=== PATIENT | female | born 1955 | race Two or more races ===

== ENCOUNTER 2020-03-27 12:36 | Outpatient (REF) | payer OTHER, SELFPAY ==
--- NOTE | 2020-03-27 13:27 | XR_ITS ---
EXAMINATION: XR KNEE, BILATERAL XR KNEE, LEFT CLINICAL INFORMATION: Pain. COMPARISON: None TECHNIQUE: AP bilateral knees one view. Left knee 2 views. FINDINGS: LEFT KNEE: Mild medial compartment joint space narrowing. No fracture or dislocation. No effusion. Vascular calcification. RIGHT KNEE: Mild medial compartment joint space narrowing. Chondrocalcinosis in the medial and lateral compartment. 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
== END 2020-03-27 12:37 | disposition home or self-care (01) ==
LOC: HO.XRAY 12:36
PROVIDERS: PCP Internal Medicine; Visit Provider Orthopaedic Surgery
DX: M25.562 Pain in left knee (principal); M25.561 Pain in right knee; M22.2X2 Patellofemoral disorders, left knee; M22.2X1 Patellofemoral disorders, right knee
CPT/HCPCS: 73560; 73565; 99204

== ENCOUNTER → 2020-03-28 13:05 | Outpatient (BNVA) | payer OTHER, SELFPAY | PROVIDERS: PCP Internal Medicine; Referring Provider Internal Medicine; Visit Provider Internal Medicine | DX: E05.20 Thyrotoxicosis with toxic multinodular goiter without thyrotoxic crisis or storm (principal); E83.52 Hypercalcemia; E11.65 Type 2 diabetes mellitus with hyperglycemia; Z79.84 Long term (current) use of oral hypoglycemic drugs; I10 Essential (primary) hypertension; E78.5 Hyperlipidemia, unspecified; E89.0 Postprocedural hypothyroidism; E55.9 Vitamin D deficiency, unspecified; G70.00 Myasthenia gravis without (acute) exacerbation | CPT/HCPCS: 99214 ==

== ENCOUNTER 2020-04-10 12:35 | Outpatient (REF) | payer OTHER, SELFPAY ==
--- NOTE | 2020-04-10 12:38 | CT_ITS ---
EXAMINATION: CT CHEST SCREENING CLINICAL INFORMATION: Smoking history COMPARISON: Previous chest CT March 2019 TECHNIQUE: Multidetector volumetric CT imaging of the chest is performed without contrast using low dose technique. Additional 2D coronal and sagittal reformatted images and axial 3D maximum intensity projection (MIP) images are generated on the CT workstation. This CT examination was performed using dose optimization techniques as appropriate, variously including the following: *Automated exposure control *Adjustment of mA and/or kV according to patient size (this includes techniques or standardized protocols for targeted exams where dose is matched to indication/reason for exam; i.e. extremities or head) *Use of iterative reconstruction technique DLP: 45 mGy-cm FINDINGS: LUNGS: The small pulmonary nodules are stable. Largest pulmonary nodules are calcified pulmonary nodules central right upper lobe axial image 20 series 3. No new pulmonary nodule is seen. No endobronchial or endotracheal lesion is seen. MEDIASTINUM: The visualized thyroid gland is unremarkable. There is mild to moderate coronary artery calcification. The heart does not appear enlarged. There is no pericardial effusion. The thoracic aorta is normal in caliber. There are no enlarged hilar or mediastinal lymph nodes. PLEURA: There is no pleural effusion. No pleural mass or thickening. AXILLA: No lymphadenopathy. UPPER ABDOMEN: The gallbladder has been removed. OSSEOUS STRUCTURES: There are degenerative changes of the spine. CT/CT lung screening IMPRESSION: Stable small calcified and noncalcified pulmonary nodules. Mild to moderate coronary artery calcification. ASSESSMENT: Lung-RADS category 2: Benign RECOMMENDATION: Annual low-dose chest CT follow-up recommended.
== END 2020-04-10 12:36 | disposition home or self-care (01) ==
LOC: HO.CT 12:35
PROVIDERS: PCP Internal Medicine; Visit Provider Physician Assistant Medical
DX: Z12.2 Encounter for screening for malignant neoplasm of respiratory organs (principal); F17.210 Nicotine dependence, cigarettes, uncomplicated
CPT/HCPCS: 71250

== ENCOUNTER 2020-04-20 12:53 | Outpatient (REF) | payer OTHER, SELFPAY ==
[2020-04-20 18:35] LABS: Basophils Percent Auto 0.6 % (0-2); Eosinophils Absolute Auto 0.1 X10*3/uL (0.0-0.4); Eosinophils Percent Auto 2.1 % (0-4); Hematocrit 45.6 % (37-47); Imm Gran Abs Auto 0.02 X10*3/uL (0.00-0.03); Imm Gran Pct Auto 0.3 % (0.0-0.4); Lymphocytes Absolute Auto 2.1 X10*3/uL (1.2-4.9); Lymphocytes Percent Auto 31.8 % (20-40); MANUAL DIFF FLAG NO; Mean Corpuscular HGB Conc 32.9 g/dl (31.0-35.0); Mean Corpuscular Hemoglobin 29.3 pg (27.0-33.0); Mean Corpuscular Volume 89.1 fL (80-98); Mean Platelet Volume 11.5 fL (9.4-12.3); Monocytes Absolute Auto 0.5 X10*3/uL (0.1-1.2); Monocytes Percent Auto 7.2 % (2-11); Neutrophils Absolute Auto 3.8 X10*3/uL (2.0-8.3); Platelet Count 302 X10*3/uL (160-400); Red Blood Count 5.12 X10*6/uL (4.20-5.50); Red Cell Distribution Width 14.3 % (11.0-16.0); White Blood Count 6.6 X10*3/uL (4.8-10.8)
[2020-04-20 18:57] LABS: Glucose Urine UA NEG (NEG); Leukocyte Esterase Urine NEG (NEG); Nitrite Urine NEG (NEG); PH 6.5 (5.0-8.0); Urine Blood NEG (NEG); Urine Ketones NEG (NEG); Urine Protein NEG (NEG-TRACE)
[2020-04-20 19:02] LABS: Appearance Urine CLEAR; Color Urine YELLOW
[2020-04-20 19:06] LABS: Albumin Level 4.4 g/dL (3.5-5.0); Anion Gap 13 (12-20); Blood Urea Nitrogen 11 mg/dL (9-16); Calcium 8.6 mg/dL (8.4-10.2); Carbon Dioxide 25 mmol/L (22-29); Chloride 107 mmol/L (96-108); Estimated Glomerular Filt Rate > 60; Phosphorus 2.6 mg/dL (2.7-4.5); Potassium 4.1 mmol/l (3.3-5.1); Renal w Reflex-LAB USE ONLY Order Verified; Sodium 141 mmol/L (135-145); Uric Acid 5.4 mg/dL (2.4-5.7)
[2020-04-20 19:07] LABS: Creatinine Urine 58.75 mg/dL; Microalbum/Creatinine Ratio Ur 64.6 ug/mg cr
[2020-04-20 19:07] LABS: Anion Gap 13 (12-20); Blood Urea Nitrogen 11 mg/dL (9-16); Calcium 8.6 mg/dL (8.4-10.2); Carbon Dioxide 24 mmol/L (22-29); Chloride 108 mmol/L (96-108); Estimated Glomerular Filt Rate > 60; Glucose Random 113 mg/dL (60-115); Potassium 4.1 mmol/l (3.3-5.1); Sodium 141 mmol/L (135-145)
[2020-04-20 19:15] LABS: Alanine Aminotransferase 21 U/L (0-31); Albumin Level 4.4 g/dL (3.5-5.0); Alkaline Phosphatase 88 U/L (39-117); Anion Gap 12 (12-20); Aspartate Amino Transferase 20 U/L (5-31); Bilirubin Total < 0.2 mg/dL (0.0-1.0); Blood Urea Nitrogen 11 mg/dL (9-16); Calcium 8.6 mg/dL (8.4-10.2); Carbon Dioxide 25 mmol/L (22-29); Chloride 108 mmol/L (96-108); Cholesterol 167 mg/dL; Estimated Glomerular Filt Rate > 60; Glucose Random 115 mg/dL (60-115); HDL Cholesterol 46 mg/dL; LDL Cholesterol Calculated 105 mg/dl; Potassium 4.1 mmol/l (3.3-5.1); Sodium 141 mmol/L (135-145); Total Protein 7.1 g/dL (6.5-8.0); Triglycerides 83 mg/dL
[2020-04-20 19:17] LABS: RBC Urine 0 /HPF (0); Squamous Epithelial Cell Urine TRACE /LPF; WBC Urine 0-2 /HPF (0-4)
[2020-04-20 19:24] LABS: Creatinine Urine 59.62 mg/dL; Microalbum/Creatinine Ratio Ur 65.4 ug/mg cr
[2020-04-20 19:25] LABS: Creatinine Urine 59.31 mg/dL; Total Protein Urine Random 12 mg/dL (<12)
[2020-04-20 19:27] LABS: Free T4 (Free Thyroxine) 0.69 ng/dL (0.71-1.85); Vitamin D 25-OH Total 30.1 ng/mL (>30)
[2020-04-20 19:28] LABS: Vitamin D 25-OH Total 29.3 ng/mL (>30)
[2020-04-20 19:28] LABS: Vitamin B12 290 pg/mL (200-900)
[2020-04-20 19:36] LABS: Renal w Reflex Lab Use Only Order verified
[2020-04-20 19:41] LABS: Creatinine, mg/dL 50.66; Phosphorus mg/dL 21.6 mg/dL; Protein mg/dL 10 mg/dL
[2020-04-20 20:32] LABS: Creatinine, 24Hr Urine 0.9 G/Day (1.0-2.0); Phosphorus, 24 Hr Urine 0.4 G/Day (0.4-1.3); Protein 24 Hr Urine 173 mg/Day (<150); Sodium 24 Hr Urine 79.4 mmol/Day (40-220); Total Volume 24 Hour Urine 1725 mL
[2020-04-20 20:36] LABS: Total Volume 24 Hour Urine 1725 mL
[2020-04-21 08:35] LABS: Estimated Average Glucose 174 mg/dL; Hemoglobin A1c % 7.7 %
[2020-04-22 11:21] LABS: LDL Cholesterol Direct 112 mg/dL (<100)
[2020-04-22 19:27] LABS: Calcium, 24 Hr Urine 185 mg/24 h; Calcium/Creatinine Ratio 214 mg/g creat (30-275); Creatinine, 24U 0.86 g/24 h (0.50-2.15); Urea, 24 Hr Urine 7 g/24 h (6-17)
[2020-04-23 20:26] LABS: Calcium (PTHI) 9.4 mg/dL (8.6-10.4); PTHI 73 pg/mL (14-64)
[2020-04-24 13:07] LABS: IgA 115 mg/dL (70-320); IgG 1183 mg/dL (600-1540); IgM 88 mg/dL (50-300)
[2020-04-26 05:01] LABS: 24hr Urine Total Volume 1725 mL; Citric Acid, 24hr Urine 442 mg/24 h (100-1300); Citric Acid/Creat Ratio 24U 508 mg/g creat (180-1070)
[2020-04-27 07:46] LABS: Oxalic Acid 24 Urine 34.5 mg/24 h (3.6-38.0)
[2020-04-27 09:05] LABS: Total Volume 1725
[2020-04-27 09:07] LABS: Magnesium, 24H Urine 38
[2020-04-27 09:08] LABS: Magnesium, Urine 24H/g Creat 44
[2020-04-27 09:25] LABS: Creatinine, 24H Ur 0.88
[2020-04-27 21:22] LABS: FT4 by Equilib. Dialysis 0.6 ng/dL (0.9-2.2)
[2020-05-05 12:45] LABS: Creatinine 24Hr Urine SEE ABOVE
== END 2020-04-20 12:54 | disposition home or self-care (01) ==
LOC: HO.HMGCLDS 12:53
PROVIDERS: Absent Provider Internal Medicine Nephrology; PCP Internal Medicine; Visit Provider Internal Medicine
DX: R80.9 Proteinuria, unspecified (principal); I10 Essential (primary) hypertension; E11.9 Type 2 diabetes mellitus without complications; E83.52 Hypercalcemia; E55.9 Vitamin D deficiency, unspecified; E11.65 Type 2 diabetes mellitus with hyperglycemia; E78.5 Hyperlipidemia, unspecified; E89.0 Postprocedural hypothyroidism
CPT/HCPCS: 36415; 80048; 80051; 80053; 80061; 81001; 82040; 82043; 82306; 82310; 82340; 82507; 82565; 82607; 82784; 83036; 83721; 83735; 83945; 83970; 84100; 84105; 84156; 84300; 84439; 84443; 84520; 84540; 84550; 84560; 85025; 86334

== ENCOUNTER 2020-04-30 13:21 | Outpatient (REF) | payer OTHER, SELFPAY ==
--- NOTE | 2020-04-30 13:25 | US_ITS ---
EXAMINATION: US RETROPERITONEAL LIMITED (RENAL ONLY) CLINICAL INFORMATION: Renal calculi. COMPARISON: Limited abdominal ultrasound dated 08/12/2018 TECHNIQUE: Real-time imaging of the kidneys. FINDINGS: RIGHT KIDNEY: 11.1 x 5.3 x 4.7 cm (SAG x AP x TRV). The kidney is normal in size, contour, and echogenicity. Renal cortical thickness is normal. There are 2 stones in the lower pole measuring 4 mm. There is a 9 mm echogenic lesion in the lower pole suggestive of an angiomyolipoma. No hydronephrosis. LEFT KIDNEY: 11.5 x 5.6 x 5.1 cm (SAG x AP x TRV). The kidney is normal in size, contour, and echogenicity. Renal cortical thickness is normal. There is a 1.8 x 1.6 x 1.7 cm simple cyst in the upper pole. No renal calculi or hydronephrosis. US/US renal BI IMPRESSION: Small right renal stones. 9 mm echogenic lesion in the lower pole of the left kidney. This may represent an angiomyolipoma. Comparison with old outside exams if available or confirmation with CT or MRI should be considered. Small left renal cyst.
== END 2020-04-30 13:22 | disposition home or self-care (01) ==
LOC: HO.US 13:21
PROVIDERS: PCP Internal Medicine; Visit Provider Internal Medicine
DX: N20.0 Calculus of kidney (principal)
CPT/HCPCS: 76775

== ENCOUNTER → 2020-05-02 11:16 | Outpatient (BNVA) | payer OTHER, SELFPAY | PROVIDERS: PCP Internal Medicine; Referring Provider Internal Medicine; Visit Provider Internal Medicine | DX: Z76.89 Persons encountering health services in other specified circumstances (principal) ==

== ENCOUNTER → 2020-05-14 14:12 | Outpatient (BNVA) | payer OTHER, SELFPAY | PROVIDERS: PCP Internal Medicine; Referring Provider Internal Medicine; Visit Provider Internal Medicine Cardiovascular Disease | DX: G70.00 Myasthenia gravis without (acute) exacerbation (principal); R42 Dizziness and giddiness; R00.2 Palpitations; R06.00 Dyspnea, unspecified | CPT/HCPCS: 93005; 99202 ==

== ENCOUNTER 2020-05-25 11:00 | Outpatient (RCR) | payer OTHER, SELFPAY ==
--- NOTE | 2020-04-11 15:08 | MHC.PT.EP ---
[facility] [place] Office [place] Office [place] Office [address] [phone] F: [phone] F: [phone] F: [phone] F: [phone] Physical Therapy Plan of Care Date of Evaluation: 04/11/20 Date of Surgery: n/a Diagnosis: Patellofemoral Disorder of L knee Assessment: Patient is a 65 year old R handed female who presents with s/s consistent with L knee pain, PF syndrome. She is not currently working. She does stay active walking in the community and running errands as needed. She relies on walking and has not been able to do as much recently due to pain and fatigue. Patient past medical history includes stroke, kidney stones, myasthenia gravis. Current impairments include pain, ROM, strength, safety, independence, activity tolerance and functional mobility. Functional limitations include decreased ability to walk, stand, transfer, negotiate stairs, and perform weight bearing activities.. Patient is motivated with good rehab potential. Skilled PT will address impairments and functional limitations in order to achieve goals. 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 Manual therapy to restore motion and function. Therapeutic exercise to improve strength and flexibility. Neuromuscular re-education for posture and balance. Therapeutic activities to return to functional activities of daily living. Please sign and return to therapist. Thank you for your referral.
--- NOTE | 2020-06-28 09:36 | MHC.PT.DC ---
[facility] [place] Office [place] Office [place] Office [address] 140 [facility] [phone] F: [phone] F: [phone] F: [phone] F: [phone] Physical Therapy Discharge Report Diagnosis: Patellofemoral Disorder of L knee Date of Surgery: n/a Date of Evaluation: 04/11/20 Date of Discharge: 06/19/20 Treatments to Date: 11 Cancellations to Date: No Shows to Date: Discharge Status: Independent with HEP Discharge Summary: Pt progressed well over the course of skilled PT making progress on impairments and functional limitations resulting in an improved quality of life. Pt is I with HEP and appropriate to d/c to HEP at this time. Electronically signed by: Juan Diego Melgoza, PT Please sign and return to therapist. Thank you for your referral.
== END 2020-06-28 09:36 | disposition home or self-care (01) ==
LOC: HO.PTCHIC 11:00
PROVIDERS: PCP Internal Medicine; Visit Provider Orthopaedic Surgery
DX: M22.2X2 Patellofemoral disorders, left knee (principal)
CPT/HCPCS: 97110; 97140; 97162

== ENCOUNTER → 2020-06-05 13:57 | Outpatient (REF) | payer OTHER, SELFPAY ==
--- NOTE | 2020-06-05 13:59 | CT_ITS ---
EXAMINATION: CT SOFT TISSUE NECK WITHOUT CONTRAST CLINICAL INFORMATION: Nontoxic multinodular goiter COMPARISON: Ultrasound thyroid 2220 TECHNIQUE: Helical imaging was performed in the axial plane with generation of coronal and sagittal reformatted images. This CT examination was performed using dose optimization techniques as appropriate, variously including the following: *Automated exposure control *Adjustment of mA and/or kV according to patient size (this includes techniques or standardized protocols for targeted exams where dose is matched to indication/reason for exam; i.e. extremities or head) *Use of iterative reconstruction technique DLP: 372 mGy-cm FINDINGS: No cervical adenopathy is identified. The parotid glands are homogeneous in attenuation. The submandibular glands are normal. No contour abnormality or pathologic enhancement is seen within the oral cavity or pharyngeal mucosal space. The laryngeal structures are normal. The parapharyngeal fat is preserved. The carotid sheath vasculature opacify normally. No extra mucosal soft tissue mass or fluid collection is seen. No retropharyngeal fluid collection is seen. The thyroid gland is normal. The superior mediastinum is unremarkable. The lung apices are clear. There is a small polyp or retention cyst floor of left maxillary sinus. Rest of the paranasal sinuses are well expanded and clear. There is small cysts seen in both lung apices. The temporomandibular joints are normal. No periapical disease is identified. No osseous abnormalities are seen. The imaged portions of the brain parenchyma are unremarkable. CT/CT soft tissue neck wo con IMPRESSION: Small polyp or retention cyst left maxillary sinus. Otherwise CT neck without contrast is unremarkable.
--- NOTE | 2020-06-05 13:59 | US_ITS ---
EXAMINATION: US THYROID CLINICAL INFORMATION: Nontoxic multinodular goiter. COMPARISON: CT soft tissue neck without contrast dated 06/05/2020. Ultrasound soft tissue head/neck thyroid dated 01/30/2020 and 03/15/2018. TECHNIQUE: Linear transducer graff-scale and color Doppler examination with attention to the region of the thyroid. FINDINGS: SIZE: Measurements of the thyroid lobes and nodules are given in sagittal, anteroposterior and transverse dimensions respectively. Right Thyroid Lobe: 4.1 x 1.4 x 1.4 cm, volume 5.2 mL. Previously 3.7 x 1.5 x 1.5 cm, volume 4.4 mL. Parenchyma: The gland echotexture is heterogeneous. Thyroid vascularity is normal. Left Thyroid Lobe: 3.9 x 1.5 x 1.1 cm, volume 3.4 mL. Previously 4.8 x 1.5 x 1.5 cm, volume 5.7 mL. Parenchyma: The gland echotexture is heterogeneous. Thyroid vascularity is normal. Isthmus: 0.2 cm in maximum AP dimension. Previously 0.4 cm. RIGHT THYROID LOBE: There are 2 nodules seen. 1. Location: Inferior. Size: 1.8 x 1.0 x 1.0 cm. Previous: 1.3 x 0.9 x 1.0 cm. Nodule characteristics: Hyperechoic, smoothly marginated with intranodular flow. 2. Location: Superior/middle. Size: 0.3 x 0.3 x 0.4 cm. Previous: 0.7 x 0.4 x 0.5 cm. Nodule characteristics: Hyperechoic, smoothly marginated, macrocalcification with no intranodular flow. ISTHMUS: No nodules. LEFT THYROID LOBE: There are 3 nodules seen. 1. Location: Superior. Size: 0.4 x 0.4 x 0.3 cm. Nodule characteristics: Hyperechoic, smoothly marginated with no intranodular flow. 2. Location: Middle. Size: 0.4 x 0.2 x 0.5 cm. Previous: 0.5 x 0.1 x 0.2 cm. Nodule characteristics: Hyperechoic macrocalcification and no intranodular flow. 3. Location: Superior. Size: 0.5 x 0.3 x 0.3 cm. Nodule characteristics: Hyperechoic smoothly marginated with macrocalcifications and no intranodular flow. NODES: No lymphadenopathy is seen in the tissue surrounding the thyroid gland. US/US thyroid IMPRESSION: Multiple bilateral thyroid nodules. The largest nodule is same size as the previous ultrasound exam 03/15/2018 but slightly increased since 01/30/2020. The rest of the nodules are subcentimeter and nonsuspicious.
== END ==
LOC: HO.CARD 13:57
PROVIDERS: Visit Provider Internal Medicine Cardiovascular Disease
DX: E04.2 Nontoxic multinodular goiter (principal); R00.2 Palpitations
CPT/HCPCS: 70490; 76536

== ENCOUNTER → 2020-06-11 10:49 | Outpatient (BNVA) | payer OTHER, SELFPAY | PROVIDERS: PCP Internal Medicine; Visit Provider Nurse Practitioner | DX: Z76.89 Persons encountering health services in other specified circumstances (principal) ==

== ENCOUNTER 2020-06-27 13:25 | Outpatient (REF) | payer OTHER, SELFPAY ==
[2020-06-27 14:52] LABS: Creatinine Urine 52.19 mg/dL
[2020-06-27 15:13] LABS: Free T4 (Free Thyroxine) 1.04 ng/dL (0.71-1.85); Thyroid Stimulating Hormone 12.76 uIU/mL (0.32-4.0)
== END 2020-06-27 13:26 | disposition home or self-care (01) ==
LOC: HO.LAB 13:25
PROVIDERS: PCP Internal Medicine; Visit Provider Internal Medicine
DX: E11.65 Type 2 diabetes mellitus with hyperglycemia (principal); E89.0 Postprocedural hypothyroidism
CPT/HCPCS: 36415; 84439; 84443

== ENCOUNTER → 2020-07-05 12:52 | Outpatient (BNVA) | payer OTHER, SELFPAY | PROVIDERS: PCP Internal Medicine; Visit Provider Internal Medicine | DX: E04.2 Nontoxic multinodular goiter (principal); E89.0 Postprocedural hypothyroidism; E11.65 Type 2 diabetes mellitus with hyperglycemia; E55.9 Vitamin D deficiency, unspecified; E83.52 Hypercalcemia; E78.5 Hyperlipidemia, unspecified; I10 Essential (primary) hypertension | CPT/HCPCS: 82947; 99212 ==

== ENCOUNTER → 2020-07-23 08:34 | Outpatient (BNVA) | payer OTHER, SELFPAY | PROVIDERS: PCP Internal Medicine; Visit Provider Nurse Practitioner ==

== ENCOUNTER → 2020-08-20 13:14 | Outpatient (BNVA) | payer OTHER, SELFPAY | PROVIDERS: PCP Internal Medicine; Visit Provider Nurse Practitioner | DX: Z13.89 Encounter for screening for other disorder (principal) | CPT/HCPCS: 99212 ==

== ENCOUNTER → 2020-09-06 10:20 | Outpatient (REF) | payer OTHER, SELFPAY ==
--- NOTE | 2020-09-06 10:26 | CA_ITS ---
Transthoracic Echocardiogram Patient (Last, First, Middle): Magy Fitzgerald, Gender: Female Date of : 1955 Age: 65 Procedure Date: 09/06/2020 Procedure Type: Transthoracic Echocardiogram Location: OP Height: 160.02 cm Weight: 71.67 kg BSA: 1.75 m2 Heart Rate: bpm BP: 136 / 90 mmHg Commis Chef: TAMIKA Javed MD: Duke Izaguirre MD Symptoms: R00.2 - Palpitations Study Quality: Good ECG Rhythm: Sinus Conclusions: - The left ventricular systolic function is normal. The visually estimated ejection fraction is between 55-60%. - No obvious valvular pathology seen on this study. Findings Left Ventricle Normal left ventricular cavity size. There is mildly increased left ventricular wall thickness. The left ventricular systolic function is normal. The visually estimated ejection fraction is between 55-60%. There is no evidence of regional wall motion abnormalities. Diastolic function is normal for age. Right Ventricle Normal right ventricular cavity size and systolic function. Atria Both atria are normal in size. Aortic Valve There is a normal trileaflet aortic valve. There is no aortic valve stenosis. There is no aortic valve regurgitation. Mitral Valve The mitral valve appears normal. There is trace mitral valve regurgitation. There is no mitral valve stenosis. Pulmonic Valve The pulmonic valve was not well visualized. Tricuspid Valve Normal tricuspid valve structure. There is trace tricuspid valve regurgitation. The pulmonary artery systolic pressure is normal. Great Vessels The aortic annulus, sinuses of valsalva, and asc aorta are normal in size. Venous The inferior vena cava is normal in size and collapses greater than 50% with inspiration. Pericardium/Pleural There is no evidence of pericardial effusion. Prior Study Comparison No prior study available for comparison. Recommendations, Care & Conclusions No obvious valvular pathology seen on this study. Measurements 2D Linear Measurements IVSd: 1.20 0.6-0.9/0.6-1.0 cm LVIDd: 3.68 3.9-5.3/4.2-5.9 cm LVIDd Index: 2.10 2.4-3.2/2.2-3.1 cm/m2 LVIDs: 2.73 2.0-3.6 cm LVPWd: 1.05 0.7-1.1 cm Ao Root: 3.30 2.1-3.5 cm LA Diam: 3.20 2.7-3.8/3.0-4.0 cm LAIDs Index: 1.83 1.5-2.3 cm/m2 LV Mass: 165.04 67-162/88-224 g LV Mass Index: 94.31 43-95/49-115 g/m2 LVOT Diam: 2.00 3.0+(-)1.3 cm 2D Systolic Function EF 4C: 52.00 >55% EF 2C: 58.50 >55% EF BiP: 54.20 >55% Mitral Valve MV Pk E: 0.78 MV PK A: 0.75 MV Decel Time: 201.00 E/A: 1.00 E'Lateral: 6.96 E'Medial: 5.44 E/E' Med: 14.40 E/E' Lat: 11.30 PHT: 59.00 MVA PHT: 3.73 Decel Lander: 3.90 Aortic Valve AoV Pk Tyler: 1.29 AoV Mn Tyler: 0.87 AoV VTI: 0.29 AoV Pk Grad: 7.00 Aov Mn Grad: 3.00 ODILON Cont.VTI: 2.37 LVOT LVOT Pk Tyler: 0.96 LVOT Mn Tyler: 0.62 LVOT VTI: 0.22 LVOT Pk Grad: 4.00 LVOT Mn Grad: 2.00 LVOT Diam: 2.00 LVOT Area: 3.14 Diastolic Function MV Pk E: 0.78 MV Pk A: 0.75 E/A: 1.00 E'Medial: 5.44 E/E' Med: 14.40 E' Laterial: 6.96 E/E' Lat: 11.30 Tricuspid Valve TR Pk Tyler: 2.21 TR Pk Grad: 20.00 RA Press: 3.00 RVSP: 23.00 Great Vessels Aorta Ao Root-2D: 3.30 2.0-3.7 cm Ao Asc: 3.40 2.1-3.4 cm Ao Arch: 2.40 Updated in Other Vendor System with Status of Final Benjie Mehta MD electronically signed on 09/08/2020 12:37:58 PM with status of Final
[2020-09-06 12:42] LABS: Alanine Aminotransferase 20 U/L (0-31); Albumin Level 4.3 g/dL (3.5-5.0); Alkaline Phosphatase 62 U/L (39-117); Anion Gap 13 (12-20); Aspartate Amino Transferase 20 U/L (5-31); Bilirubin Total 0.3 mg/dL (0.0-1.0); Blood Urea Nitrogen 20 mg/dL (9-16); Calcium 9.5 mg/dL (8.4-10.2); Carbon Dioxide 28 mmol/L (22-29); Chloride 103 mmol/L (96-108); Cholesterol 178 mg/dL; Estimated Glomerular Filt Rate > 60; Glucose Random 131 mg/dL (60-115); HDL Cholesterol 47 mg/dL; LDL Cholesterol Calculated 95 mg/dl; Potassium 4.1 mmol/L (3.3-5.1); Sodium 140 mmol/L (135-145); Triglycerides 183 mg/dL
[2020-09-06 13:04] LABS: Free T4 (Free Thyroxine) 0.97 ng/dL (0.71-1.85); Thyroid Stimulating Hormone 6.27 uIU/mL (0.32-4.0); Vitamin D 25-OH Total 25.4 ng/mL (>30)
[2020-09-06 13:06] LABS: Estimated Average Glucose 180 mg/dL; Hemoglobin A1c % 7.9 %
[2020-09-06 13:49] LABS: Creatinine Urine 97.98 mg/dL; Microalbum/Creatinine Ratio Ur 182.6 ug/mg cr
[2020-09-07 06:07] LABS: LDL Cholesterol Direct 118 mg/dL (<100)
== END ==
LOC: HO.CARD 10:20
PROVIDERS: Absent Provider Internal Medicine; PCP Internal Medicine; Visit Provider Internal Medicine Cardiovascular Disease
DX: R00.2 Palpitations (principal); E11.65 Type 2 diabetes mellitus with hyperglycemia; E04.2 Nontoxic multinodular goiter; E89.0 Postprocedural hypothyroidism; E55.9 Vitamin D deficiency, unspecified
CPT/HCPCS: 36415; 80053; 80061; 82043; 82306; 83036; 83721; 84439; 84443; 93306

== ENCOUNTER → 2020-09-14 09:33 | Outpatient (REF) | payer OTHER, SELFPAY ==
--- NOTE | ~2020-09-14 | US_ITS ---
EXAMINATION: US VENOUS ULTRASOUND WITH DOPPLER LOWER EXTREMITY, LEFT CLINICAL INFORMATION: Pain left lower leg COMPARISON: None TECHNIQUE: Ultrasound of the deep veins is performed from the hip to the calf with compression sonography and color and pulse Doppler assessment. Spectral analysis with color-flow imaging is performed. FINDINGS: There is normal venous compression and respiratory variation and augmented flow. The visualized common femoral vein, superficial femoral vein, profunda femoral vein, popliteal vein, and the trifurcation region shows no evidence of deep venous thrombosis. There is no significant popliteal fossa cyst. There is a trace joint effusion noted If the patient's symptoms persist, followup ultrasound in 5 days 7 days might be of value to exclude proximal propagation from a non-visualized calf vein. US/US venous duplex LE LT IMPRESSION: No DVT demonstrated in the left lower extremity. Trace joint effusion.
[2020-09-14 11:19] LABS: MANUAL DIFF FLAG NO
[2020-09-14 11:36] LABS: Basophils Absolute Auto 0.1 X10*3/uL (0.0-0.2); Basophils Percent Auto 0.6 % (0-2); Eosinophils Absolute Auto 0.2 X10*3/uL (0.0-0.4); Eosinophils Percent Auto 1.8 % (0-4); Hematocrit 46.2 % (37-47); Hemoglobin 15.4 g/dl (12.0-16.0); Imm Gran Abs Auto 0.03 X10*3/uL (0.00-0.03); Imm Gran Pct Auto 0.3 % (0.0-0.4); Lymphocytes Absolute Auto 2.7 X10*3/uL (1.2-4.9); Lymphocytes Percent Auto 30.4 % (20-40); Mean Corpuscular HGB Conc 33.3 g/dl (31.0-35.0); Mean Corpuscular Hemoglobin 29.2 pg (27.0-33.0); Mean Corpuscular Volume 87.7 fL (80-98); Mean Platelet Volume 11.6 fL (9.4-12.3); Monocytes Absolute Auto 0.7 X10*3/uL (0.1-1.2); Monocytes Percent Auto 8.3 % (2-11); Neutrophils Absolute Auto 5.2 X10*3/uL (2.0-8.3); Neutrophils Percent Auto 58.6 % (45-73); Platelet Count 298 X10*3/uL (160-400); Red Blood Count 5.27 X10*6/uL (4.20-5.50); Red Cell Distribution Width 14.3 % (11.0-16.0); White Blood Count 8.9 X10*3/uL (4.8-10.8)
[2020-09-14 11:45] LABS: Glucose Urine UA NEG (NEG); Leukocyte Esterase Urine TRACE (NEG); Nitrite Urine NEG (NEG); UACC Culture Trigger YES; Urine Blood NEG (NEG); Urine Ketones NEG (NEG); Urine Protein NEG (NEG-TRACE)
[2020-09-14 11:48] LABS: Appearance Urine CLEAR; Color Urine YELLOW
[2020-09-14 11:57] LABS: Anion Gap 13 (12-20); Blood Urea Nitrogen 16 mg/dL (9-16); Calcium 9.8 mg/dL (8.4-10.2); Carbon Dioxide 26 mmol/L (22-29); Chloride 104 mmol/L (96-108); Estimated Glomerular Filt Rate > 60; Phosphorus 3.1 mg/dL (2.7-4.5); Potassium 4.3 mmol/L (3.3-5.1); Sodium 139 mmol/L (135-145); Uric Acid 5.1 mg/dL (2.4-5.7)
[2020-09-14 12:09] LABS: Thyroid Stimulating Hormone 4.96 uIU/mL (0.32-4.0)
[2020-09-14 12:20] LABS: RBC Urine 0-2 /HPF (0); Squamous Epithelial Cell Urine 2+ /LPF
[2020-09-14 12:21] LABS: Bacteria Urine 1+ /LPF
[2020-09-14 12:23] LABS: Creatinine Urine 37.79 mg/dL; Microalbum/Creatinine Ratio Ur 222.2 ug/mg cr; Protein/Creatinine Ratio, Ur 0.42 (<0.2); Total Protein Urine Random 16 mg/dL (<12)
[2020-09-14 13:12] LABS: Renal w Reflex Lab Use Only Order verified
[2020-09-14 13:16] LABS: T4 Thyroxine 10.5 ug/dL (4.5-12.0)
== END ==
LOC: HO.CARD 09:33
PROVIDERS: Absent Provider Internal Medicine Nephrology; PCP Internal Medicine; Referring Provider Psychiatry & Neurology Neurology; Visit Provider Internal Medicine Cardiovascular Disease
DX: R00.2 Palpitations (principal); I63.9 Cerebral infarction, unspecified; M79.662 Pain in left lower leg; R80.9 Proteinuria, unspecified; E11.9 Type 2 diabetes mellitus without complications; I10 Essential (primary) hypertension; G47.00 Insomnia, unspecified; E03.9 Hypothyroidism, unspecified; M22.2X2 Patellofemoral disorders, left knee
CPT/HCPCS: 36415; 80051; 81001; 81003; 82043; 82310; 82565; 84100; 84156; 84436; 84443; 84520; 84550; 85025; 87086; 93971; 99212

== ENCOUNTER → 2020-10-02 13:13 | Outpatient (BNVA) | payer OTHER, SELFPAY | PROVIDERS: PCP Internal Medicine; Visit Provider Nurse Practitioner ==

== ENCOUNTER → 2020-10-29 10:36 | Outpatient (BNVA) | payer OTHER, SELFPAY | PROVIDERS: PCP Internal Medicine; Visit Provider Internal Medicine ==

== ENCOUNTER → 2020-11-01 13:58 | Outpatient (REF) | payer OTHER, SELFPAY ==
--- NOTE | 2020-11-01 14:05 | HM_ITS ---
The patient is 65-year-old female. INDICATION FOR TEST: Palpitation. INTERPRETATION: The patient is hooked up to cardiac event monitor from 11/01/2020 to 12/01/2020 for a total period of 30 days. The patient's baseline rhythm is normal sinus rhythm. Heart rate varying from 77 to 99 beats per minute. There were no arrhythmias recorded. The patient reported 1 symptoms of chest pain, which correlated to sinus rhythm. No symptoms of palpitations were reported. CONCLUSION: 1. Cardiac event monitor is remarkable. 2. Baseline normal sinus rhythm with no arrhythmias. 3. The patient reported symptom of chest pain correlated to sinus rhythm. Clinton Brown MD NRS/MODL / [id number]
== END ==
LOC: HO.CARD 13:58
PROVIDERS: Visit Provider Internal Medicine Cardiovascular Disease
DX: R00.2 Palpitations (principal)
CPT/HCPCS: 93270

== ENCOUNTER → 2020-11-02 10:00 | Outpatient (BNVA) | payer OTHER, SELFPAY | PROVIDERS: Visit Provider Nurse Practitioner ==

== ENCOUNTER → 2020-11-08 14:18 | Outpatient (BNVA) | payer OTHER, SELFPAY | PROVIDERS: PCP Internal Medicine; Referring Provider Internal Medicine; Visit Provider Internal Medicine Cardiovascular Disease | DX: I63.9 Cerebral infarction, unspecified (principal) | CPT/HCPCS: 99212 ==

== ENCOUNTER 2020-11-09 12:59 | Outpatient (REF) | payer OTHER, SELFPAY ==
--- NOTE | ~2020-11-09 | US_ITS ---
EXAMINATION: US THYROID CLINICAL INFORMATION: Goiter. COMPARISON: Thyroid ultrasound 06/05/2020 and 01/30/2020. TECHNIQUE: Linear transducer graff-scale and color Doppler examination with attention to the region of the thyroid. FINDINGS: SIZE: Measurements of the thyroid lobes and nodules are given in sagittal, anteroposterior and transverse dimensions respectively. Right Thyroid Lobe: 3.6 x 1.4 x 1.2 cm, volume 3.2 mL. Previously 4.1 x 1.4 x 1.4 cm, volume 5.2 mL. Parenchyma: The gland echotexture is heterogeneous. Thyroid vascularity is normal. Left Thyroid Lobe: 3.6 x 1.7 x 1.5 cm, volume 4.8 mL. Previously 3.9 x 1.5 x 1.1 cm, volume 3.4 mL. Parenchyma: The gland echotexture is heterogeneous. Thyroid vascularity is normal. Isthmus: 0.2 cm in maximum AP dimension. Previously 0.2 cm. Estimated total number of nodules greater than or equal to 1 cm: . General Ophthalmologist nodules are described as follows: 1. Location: Right upper. Size: 0.4 x 0.2 x 0.2 cm, volume 0.01 mL. Previously: 0.3 x 0.3 x 0.4 cm, volume 0.02 mL. Nodule characteristics: Composition: Solid (2). Echogenicity: Hyperechoic (1). Shape: Not taller than wide (0). Margins: Ill-defined (0). Echogenic Foci: Macrocalcifications (1). ACR TI-RADS total points: 4 Previous: n/a ACR TI-RADS category: 4 Previous: n/a Significant change in size (>/= 20% in 2 dimensions and minimal increase of 2 mm or 50% or greater increase in volume): No Change in features: No Change in ACR TI-RADS risk category: No 2. Location: Right mid/lateral. Size: 0.5 x 0.5 x 0.4 cm, volume 0.05 mL. Previously: New. Nodule characteristics: Composition: Solid (2). Echogenicity: Isoechoic (1). Shape: Taller than wide (3). Margins: Smooth (0). Echogenic Foci: None (0). ACR TI-RADS total points: 6 Previous: n/a ACR TI-RADS category: 4 Previous: n/a 3. Location: Right lower. Size: 1.3 x 1.0 x 0.9 cm, volume 0.6 mL. Previously: 1.8 x 1.0 x 1.0 cm, volume 0.9 mL. Nodule characteristics: Composition: Solid/almost completely solid (2). Echogenicity: Isoechoic (1). Shape: Taller than wide (3). Margins: Irregular (2). Echogenic Foci: Punctate echogenic foci (3). ACR TI-RADS total points: 11 Previous: n/a ACR TI-RADS category: 5 Previous: n/a Significant change in size (>/= 20% in 2 dimensions and minimal increase of 2 mm or 50% or greater increase in volume): No Change in features: No Change in ACR TI-RADS risk category: No 4. Location: Left upper. Size: 1.3 x 0.5 x 0.5 cm, volume 0.2 mL. Previously: 0.5 x 0.3 x 0.3 cm, volume 0.02 mL. Nodule characteristics: Composition: Solid (2). Echogenicity: Hypoechoic (2). Shape: Not taller than wide (0). Margins: Ill-defined (0). Echogenic Foci: Macrocalcifications (1). ACR TI-RADS total points: 5 Previous: n/a ACR TI-RADS category: 4 Previous: n/a Significant change in size (>/= 20% in 2 dimensions and minimal increase of 2 mm or 50% or greater increase in volume): No Change in features: No Change in ACR TI-RADS risk category: No 5. Location: Left mid. Size: 0.6 x 0.3 x 0.6 cm, volume 0.06 mL. Previously: 0.5 x 0.3 x 0.3 cm, volume 0.02 mL. Nodule characteristics: Composition: Solid (2). Echogenicity: Hyperechoic (1). Shape: Not taller than wide (0). Margins: Ill-defined (0). Echogenic Foci: Macrocalcifications (1). ACR TI-RADS total points: 4 Previous: n/a ACR TI-RADS category: 4 Previous: n/a Significant change in size (>/= 20% in 2 dimensions and minimal increase of 2 mm or 50% or greater increase in volume): No Change in features: No Change in ACR TI-RADS risk category: No NODES: No lymphadenopathy is seen in the tissue surrounding the thyroid gland. US/US thyroid IMPRESSION: 1. Bilateral thyroid nodules are seen, as above. The 1.3 cm in maximal diameter right thyroid lower pole nodule meets ACR biopsy criteria and is amenable to ultrasound-guided biopsy, if clinically indicated and not already performed. 2. There is heterogeneous thyroid echotexture, which can be associated with thyroiditis. ACR TI-RADS RECOMMENDATION REFERENCE: Ultrasound-guided fine-needle aspiration, followup ultrasound, no further follow up. * TR1 (0 point) and TR 2 (2 points): No FNA or follow up * TR3 (3 points): FNA if more than or equal to 2.5 cm in maximum dimension, followup ultrasound in 1, 3 and 5 years if 1.5 to 2.4 cm in maximum dimension. * TR4 (4-6 points): FNA if more than or equal to 1.5 cm in maximum dimension, followup ultrasound in 1, 2, 3 and 5 years if 1 to 1.4 cm in maximum dimension. * TR5 (more than or equal to 7 points): FNA if more than or equal to 1 cm in maximum dimension, followup ultrasound every year for 5 years if 0.5 to 0.9 cm in maximum dimension. * TR3, TR4 or TR5 nodules that are below the size threshold for follow up receive no follow up.
== END 2020-11-09 13:00 | disposition home or self-care (01) ==
LOC: HO.HMGCX 12:59
PROVIDERS: Visit Provider Internal Medicine
DX: E04.2 Nontoxic multinodular goiter (principal); R10.9 Unspecified abdominal pain; R19.00 Intra-abdominal and pelvic swelling, mass and lump, unspecified site; Z86.73 Personal history of transient ischemic attack (TIA), and cerebral infarction without residual deficits
CPT/HCPCS: 76536

== ENCOUNTER 2020-11-26 08:48 | Outpatient (REF) | payer OTHER, SELFPAY ==
--- NOTE | ~2020-11-26 | CT_ITS ---
EXAMINATION: CT ABDOMEN AND PELVIS WITH CONTRAST CLINICAL INFORMATION: Abdominal pain. COMPARISON: None TECHNIQUE: Multidetector volumetric images were obtained from the superior aspect of the liver through the pubic symphysis following administration 85 mL of Omnipaque 350 intravenous contrast. Sagittal and coronal reformatted images were obtained on the technologist's workstation. Oral contrast: No. This CT examination was performed using dose optimization techniques as appropriate, variously including the following: *Automated exposure control *Adjustment of mA and/or kV according to patient size (this includes techniques or standardized protocols for targeted exams where dose is matched to indication/reason for exam; i.e. extremities or head) *Use of iterative reconstruction technique DLP: 503 mGy-cm FINDINGS: LUNG BASES: The visualized lung bases are unremarkable. LIVER, GALLBLADDER, AND BILIARY TREE: The liver is normal in size, shape, and attenuation. No focal hepatic lesion or biliary ductal dilatation is present. The gallbladder has been surgically removed. PANCREAS: Unremarkable. SPLEEN: Unremarkable. ADRENAL GLANDS: Unremarkable. KIDNEYS AND URETERS: The kidneys are normal in size, shape, and attenuation. There is a 3 mm radiopaque calculi upper and lower pole right kidney. There are bilateral renal cysts. The largest in the upper pole left kidney measures 1.5 cm and 5 mm cortical based cyst upper pole left kidney medially. BLADDER: Unremarkable. GASTROINTESTINAL TRACT: There is scattered stool, oral contrast and gas seen throughout the colon without significant distention. The small bowel loops are normal caliber except for a small segment of loop which has mural thickening on axial image 52/3 and additional small bowel loops with mild mural thickening on axial image 69/3. There is mild fat stranding adjacent to this loop suspicious for enteritis. It could very well represent peristalsis. The appendix is normal caliber. No inflammatory process, free air or free fluid seen. ABDOMINAL WALL: No significant hernia is appreciated. LYMPH NODES: There are small shotty retroperitoneal lymph nodes. VASCULAR: Atherosclerotic changes of the abdominal aorta without dilation. Similar findings are seen involving both common iliac arteries. Mild atherosclerotic calcification of the abdominal aorta is noted. No aneurysmal dilatation. PELVIC VISCERA: The uterus is likely small and atrophic. There is a complex area in the left pelvis measuring 3.1 x 1.9 cm on axial image 63/3. Likely prominent left ovary or lymph node. There are no previous available for comparison. The right ovary is not seen. OSSEOUS STRUCTURES: There are vacuum disc changes and ventral spondylosis at L4-L5 and L5-S1 disc levels. No lytic process. CT/CT abdomen pelvis w con IMPRESSION: Mild mural thickening involving small segment of small bowel with minimal adjacent fat stranding suspicious for enteritis. Cholecystectomy, bilateral small renal cysts and mild constipation. Left pelvic wall lesion measuring 3.1 cm, question ovary versus enlarged lymph node. No previous available for comparison. Correlated with ultrasound pelvis.
[2020-11-26 10:06] LABS: Estimated Average Glucose 214 mg/dL; Hemoglobin A1c % 9.1 %
[2020-11-26 10:14] LABS: Alanine Aminotransferase 23 U/L (0-31); Albumin Level 4.5 g/dL (3.5-5.0); Alkaline Phosphatase 85 U/L (39-117); Anion Gap 13 (12-20); Aspartate Amino Transferase 17 U/L (5-31); Bilirubin Total 0.4 mg/dL (0.0-1.0); Blood Urea Nitrogen 11 mg/dL (9-16); Calcium 9.2 mg/dL (8.4-10.2); Carbon Dioxide 22 mmol/L (22-29); Chloride 108 mmol/L (96-108); Estimated Glomerular Filt Rate > 60; Glucose Random 184 mg/dL (60-115); Potassium 4.2 mmol/L (3.3-5.1); Sodium 139 mmol/L (135-145); Total Protein 6.4 g/dL (6.5-8.0)
[2020-11-26 10:16] LABS: Blood Urea Nitrogen 11 mg/dL (9-16); Estimated Glomerular Filt Rate > 60
[2020-11-26 10:37] LABS: Free T4 (Free Thyroxine) 0.99 ng/dL (0.71-1.85); Thyroid Stimulating Hormone 0.72 uIU/mL (0.32-4.0)
[2020-11-26] MEDS: iohexoL 350 MG/ML 100 ML INFUS..BTL 85 ML IV (11:15)
[2020-11-28 10:36] LABS: Calcium (PTHI) 9.3 mg/dL (8.6-10.4); PTHI 72 pg/mL (14-64)
== END 2020-11-26 08:49 | disposition home or self-care (01) ==
LOC: HO.CT 08:48
PROVIDERS: Internal Medicine; Visit Provider Nurse Practitioner
DX: R10.9 Unspecified abdominal pain (principal); R19.00 Intra-abdominal and pelvic swelling, mass and lump, unspecified site; E04.2 Nontoxic multinodular goiter; E11.65 Type 2 diabetes mellitus with hyperglycemia; E83.52 Hypercalcemia
CPT/HCPCS: 36415; 74177; 80053; 82306; 82565; 83036; 83970; 84439; 84443; 84520; Q9967

== ENCOUNTER 2020-12-05 10:00 | Outpatient (RCR) | payer OTHER, SELFPAY ==
[2020-11-23 11:06] VITALS: BP 165/85; PULSE 84
--- NOTE | 2020-12-11 09:23 | MHC.PT.EP ---
[facility] [place] Office [place] Office [place] Office [address] [phone] F: [phone] F: [phone] F: [phone] F: [phone] Physical Therapy Plan of Care Date of Evaluation: Date of Surgery: Diagnosis: Lacunar stroke Assessment: Pt is a 65 y/o female with MG who is referred to PT for eval and treat of acute lacunar stroke resulting in decreased tolerance for standing and walking, performing heavy HH chores, and negotiating stairs secondary to decreased R LE > L LE strength, gait and balance abnormality, and R LE pain. Pt is deemed an appropriate candidate to receive skilled PT in order to address her physical limitations to improve her functional ability. Frequency and Duration: The patient will be seen 2 x /wk x 5 wks. Short Term Goals: Initiate HEP. Improve R LE baseline pain pain to < 4/10 initial 8/10. 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 (initial: 26.4 seconds) in order to demonstrate improved risk of falls. Improve R knee extension MMT to > 4/5, initial 4-/5. Pt will be able to walk 2 blocks with at most a little bit of difficulty; initial: unable or with extreme difficulty. Treatment Plan: Modalities to reduce pain, spasms and effusion. Manual therapy to restore motion and function. Therapeutic exercise to improve strength and flexibility. Neuromuscular re-education for posture and balance. Therapeutic activities to return to functional activities of daily living. Electronically signed by: Walker Max PT. Please sign and return to therapist. Thank you for your referral.
--- NOTE | 2021-02-22 14:08 | MHC.PT.DC ---
[facility] [place] Office [place] Office [place] Office [address] [phone] F: [phone] F: [phone] F: [phone] F: [phone] Physical Therapy Discharge Report Diagnosis: Lacunar stroke Date of Surgery: Date of Evaluation: 11/23/20 Date of Discharge: 02/22/21 Treatments to Date: 3 Cancellations to Date: No Shows to Date: Discharge Status: Patient Elected to Stop Recommend MD Follow-up Discharge Summary: From last treatment note: Pt presented w/o SPC stating her walking is feeling better already. During her session Pt reported she was starting to feel a little sweaty and felt a GARVIN coming on as she has been instructed to inform therapy of these Sx; BP taken 170/95; after water and 8 min rest; 170/ 100; Pt states at that time she has been w/o BP meds x 2 days stating issues with her pharmacy, in the clinic Pt was encouraged and called to fill her Rx and then stated she will walk next door to her PCP and ask for an updated script for her meds and discuss her elevated BP when she leaves the clinic. therapy was halted today d/t BP findings and symptoms. PCP office was notified of this concern. Electronically signed by: Walker Max PT. Please sign and return to therapist. Thank you for your referral.
== END 2021-02-22 14:09 | disposition home or self-care (01) ==
LOC: HO.PTCHIC 10:00
PROVIDERS: PCP Internal Medicine; Visit Provider Internal Medicine
DX: I63.81 Other cerebral infarction due to occlusion or stenosis of small artery (principal)
CPT/HCPCS: 97110; 97116; 97163; 97530

== ENCOUNTER 2020-12-13 12:54 | Outpatient (REF) | payer OTHER, SELFPAY | END 2020-12-13 12:55 | disposition home or self-care (01) | LOC: HO.HMGCLNP 12:54 | PROVIDERS: Visit Provider Nurse Practitioner | DX: K52.9 Noninfective gastroenteritis and colitis, unspecified (principal); E78.5 Hyperlipidemia, unspecified; M79.673 Pain in unspecified foot; E11.65 Type 2 diabetes mellitus with hyperglycemia | CPT/HCPCS: 87045; 87046 ==

== ENCOUNTER 2020-12-20 07:58 | Outpatient (REF) | payer OTHER, SELFPAY ==
--- NOTE | 2020-12-20 08:37 | PM.OP ---
Brief Operative Note Date of Service: 12/20/20 Surgeon: Santa Luong DO EXAMINATION: US THYROID CLINICAL INFORMATION: Multinodular Thyroid COMPARISON: Prior TECHNIQUE: Linear transducer graff-scale and color Doppler examination with attention to the region of the thyroid. FINDINGS: SIZE: Measurements of the thyroid lobes and nodules are given in sagittal, anteroposterior and transverse dimensions respectively. Right Thyroid Lobe: 1.4 x 3.6 x 1.5 cm. Parenchyma: The gland echotexture is heterogenous. Thyroid vascularity is normal. Left Thyroid Lobe: 1.0 x 3.3 x 0.9 cm. Parenchyma: The gland echotexture is heterogenous. Thyroid vascularity is normal. Isthmus: 0.25 cm in maximum AP dimension. RIGHT THYROID LOBE: There are 1 nodules. There is a 1.3 x 1.12 x 0.8 cm predominantly solid slightly hyperechoic nodule in the middle lobe with scattered microcalcifications. This has smooth margin, microcalcification and grade 0 intranodular flow. There are no additional nodules noted. NODES: No lymphadenopathy is seen in the tissue surrounding the thyroid gland. IMPRESSION: Heterogenous, small thyroid gland with a solitary RMP thyroid nodule. This nodule was previously biopsied at 1.6 cm with benign cytology. It has shrunk significantly since then. Was an Hospitality Team Member used for this Procedure?: No Estimated blood loss (mL): 0
[2020-12-20 10:23] LABS: Cholesterol 156 mg/dL; HDL Cholesterol 41 mg/dL; LDL Cholesterol Calculated 88 mg/dl; Triglycerides 139 mg/dL
== END 2020-12-20 07:59 | disposition home or self-care (01) ==
LOC: HO.US 07:58
PROVIDERS: Absent Provider Internal Medicine; PCP Internal Medicine; Visit Provider Internal Medicine
DX: E04.2 Nontoxic multinodular goiter (principal); E78.5 Hyperlipidemia, unspecified
CPT/HCPCS: 36415; 76536; 80061

== ENCOUNTER → 2020-12-26 10:00 | Outpatient (BNVA) | payer OTHER, SELFPAY | PROVIDERS: PCP Internal Medicine; Visit Provider Orthopaedic Surgery | DX: R29.898 Other symptoms and signs involving the musculoskeletal system (principal) | CPT/HCPCS: 99212 ==

== ENCOUNTER → 2021-01-02 12:26 | Outpatient (BNVA) | payer OTHER, SELFPAY | PROVIDERS: PCP Internal Medicine; Referring Provider Internal Medicine; Visit Provider Internal Medicine Cardiovascular Disease | DX: I10 Essential (primary) hypertension (principal); E78.5 Hyperlipidemia, unspecified; G70.00 Myasthenia gravis without (acute) exacerbation; I63.9 Cerebral infarction, unspecified; H02.401 Unspecified ptosis of right eyelid; R06.02 Shortness of breath; E11.9 Type 2 diabetes mellitus without complications; F17.210 Nicotine dependence, cigarettes, uncomplicated; E03.9 Hypothyroidism, unspecified; E83.52 Hypercalcemia | CPT/HCPCS: 93005; 99212 ==

== ENCOUNTER 2021-01-14 12:23 | Outpatient (REF) | payer OTHER, SELFPAY ==
[2021-01-14 14:45] LABS: C Reactive Protein 0.26 mg/dL (< or = 0.50)
[2021-01-14 15:06] LABS: Creatinine Urine 55.74 mg/dL; Free T4 (Free Thyroxine) 1.29 ng/dL (0.71-1.85); Thyroid Stimulating Hormone 1.15 uIU/mL (0.32-4.0)
== END 2021-01-14 12:24 | disposition home or self-care (01) ==
LOC: HO.LAB 12:23
PROVIDERS: Internal Medicine; PCP Internal Medicine; Referring Provider Internal Medicine; Visit Provider Nurse Practitioner
DX: E11.65 Type 2 diabetes mellitus with hyperglycemia (principal); E89.0 Postprocedural hypothyroidism; K52.9 Noninfective gastroenteritis and colitis, unspecified; R19.00 Intra-abdominal and pelvic swelling, mass and lump, unspecified site; K21.9 Gastro-esophageal reflux disease without esophagitis; G70.00 Myasthenia gravis without (acute) exacerbation
CPT/HCPCS: 36415; 81479; 82397; 83520; 84439; 84443; 86140; 88346; 88350; 99212

== ENCOUNTER 2021-01-28 10:05 | Outpatient (REF) | payer OTHER, SELFPAY ==
[2021-02-02 02:02] LABS: Calprotectin, Fecal 18 mcg/g
== END 2021-01-28 10:06 | disposition home or self-care (01) ==
LOC: HO.HMGCLNP 10:05
PROVIDERS: Visit Provider Nurse Practitioner
DX: K52.9 Noninfective gastroenteritis and colitis, unspecified (principal)
CPT/HCPCS: 83993

== ENCOUNTER 2021-02-06 09:25 | Outpatient (REF) | payer OTHER, SELFPAY ==
[2021-02-06 11:33] LABS: Glucose Urine UA 100 MG/DL (NEG); Leukocyte Esterase Urine 1+ (NEG); Nitrite Urine NEG (NEG); Specific Gravity - Urine 1.025 (1.005-1.025); Urine Blood NEG (NEG); Urine Ketones 15 MG/DL (NEG); Urine Protein 1+ MG/DL (NEG-TRACE)
[2021-02-06 11:43] LABS: Appearance Urine HAZY; Color Urine YELLOW
[2021-02-06 12:03] LABS: Bacteria Urine 1+ /LPF; Calcium Oxalate Crystals Urine 2+ /LPF; Mucus Urine 1+ /LPF; RBC Urine 0 /HPF (0); Squamous Epithelial Cell Urine 1+ /LPF
[2021-02-06 12:18] LABS: Anion Gap 13 (12-20); Blood Urea Nitrogen 23 mg/dL (9-16); Calcium 10.1 mg/dL (8.4-10.2); Carbon Dioxide 26 mmol/L (22-29); Chloride 99 mmol/L (96-108); Estimated Glomerular Filt Rate > 60; Potassium 4.3 mmol/L (3.3-5.1); Sodium 134 mmol/L (135-145)
[2021-02-06 12:26] LABS: Creatinine Urine 241.98 mg/dL; Total Protein Urine Random 46 mg/dL (<12)
== END 2021-02-06 09:26 | disposition home or self-care (01) ==
LOC: HO.HMGCLDS 09:25
PROVIDERS: PCP Internal Medicine; Visit Provider Internal Medicine Nephrology
DX: I10 Essential (primary) hypertension (principal)
CPT/HCPCS: 36415; 80051; 81001; 82043; 82310; 82565; 84156; 84520

== ENCOUNTER → 2021-03-01 15:02 | Outpatient (BNVA) | payer OTHER, SELFPAY | PROVIDERS: Visit Provider Nurse Practitioner ==

== ENCOUNTER 2021-03-07 12:53 | Outpatient (REF) | payer MEDICARE, MEDICAID, SELFPAY ==
--- NOTE | ~2021-03-07 | MM_ITS ---
EXAMINATION: MM SCREENING DIGITAL BREAST TOMOSYNTHESIS, BILATERAL CLINICAL INFORMATION: Screening. Asymptomatic. The lifetime risk of breast cancer based on the Tyrer-Cuzick Model is 7.2%. COMPARISON: Mammography: December 01, 2019 and studies dating back to June 11, 2015 TECHNIQUE: Digital breast tomosynthesis is performed in both the craniocaudal and mediolateral oblique views along with computer-aided detection (CAD). Synthesized 2D images are generated from the tomosynthesis. FINDINGS: The breasts are almost entirely fatty (ACR BI-RADS breast composition Category a). There are no significant masses, abnormal calcifications, or other abnormalities. MM/MM tomosynthesis screening BI IMPRESSION: There are no significant changes from prior study. ASSESSMENT: BI-RADS 1: Negative RECOMMENDATION: Routine annual mammography screening. This patient's information was entered into a reminder system with a target due date for their next mammogram.
== END 2021-03-07 12:54 | disposition home or self-care (01) ==
LOC: HO.MAMMO 12:53
PROVIDERS: PCP Internal Medicine; Visit Provider Internal Medicine
DX: Z12.31 Encounter for screening mammogram for malignant neoplasm of breast (principal)
CPT/HCPCS: 77063; 77067

== ENCOUNTER → 2021-03-11 13:07 | Outpatient (BNVA) | payer MEDICARE, MEDICAID, SELFPAY | PROVIDERS: PCP Internal Medicine; Referring Provider Internal Medicine; Visit Provider Internal Medicine Cardiovascular Disease | DX: E11.65 Type 2 diabetes mellitus with hyperglycemia (principal); E04.2 Nontoxic multinodular goiter; E89.0 Postprocedural hypothyroidism; E55.9 Vitamin D deficiency, unspecified; E83.52 Hypercalcemia; E78.5 Hyperlipidemia, unspecified; I10 Essential (primary) hypertension; R07.9 Chest pain, unspecified | CPT/HCPCS: 82947; 83036; 99212 ==

== ENCOUNTER 2021-04-10 13:43 | Outpatient (REF) | payer MEDICARE, MEDICAID, SELFPAY | END 2021-04-10 13:44 | disposition home or self-care (01) | LOC: HO.HMGCLDS 13:43 | PROVIDERS: PCP Internal Medicine; Visit Provider Internal Medicine | DX: Z20.822 Contact with and (suspected) exposure to COVID-19 (principal) | CPT/HCPCS: C9803; U0003; U0005 ==

== ENCOUNTER 2021-05-06 10:57 | Outpatient (REF) | payer MEDICARE, MEDICAID, SELFPAY ==
[2021-05-06 14:31] LABS: Alanine Aminotransferase 18 U/L (0-31); Albumin Level 4.4 g/dL (3.5-5.0); Alkaline Phosphatase 91 U/L (39-117); Anion Gap 12 (12-20); Aspartate Amino Transferase 15 U/L (5-31); Bilirubin Total 0.2 mg/dL (0.0-1.0); Blood Urea Nitrogen 21 mg/dL (9-16); Carbon Dioxide 28 mmol/L (22-29); Chloride 102 mmol/L (96-108); Cholesterol 268 mg/dL; Estimated Glomerular Filt Rate > 60; Glucose Fasting 182 mg/dL (60-99); HDL Cholesterol 43 mg/dL; LDL Cholesterol Calculated 197 mg/dl; Phosphorus 3.2 mg/dL (2.7-4.5); Potassium 4.1 mmol/L (3.3-5.1); Sodium 138 mmol/L (135-145); Total Protein 7.3 g/dL (6.5-8.0); Triglycerides 143 mg/dL
[2021-05-06 14:36] LABS: Creatinine Urine 79.25 mg/dL; Microalbum/Creatinine Ratio Ur 46.6 ug/mg cr; Thyroid Stimulating Hormone 0.21 uIU/mL (0.32-4.0); Vitamin D 25-OH Total 32.3 ng/mL (>30)
[2021-05-06 14:37] LABS: Free T4 (Free Thyroxine) 1.21 ng/dL (0.71-1.85)
[2021-05-06 15:09] LABS: Folate 9.6 ng/mL (> or = 4.0); Vitamin B12 243 pg/mL (200-900)
[2021-05-07 11:01] LABS: LDL Cholesterol Direct 219 mg/dL (<100)
[2021-05-07 14:10] LABS: Calcium (PTHI) 10.2 mg/dL (8.6-10.4); PTHI 32 pg/mL (14-64)
== END 2021-05-06 10:58 | disposition home or self-care (01) ==
LOC: HO.HMGCLDS 10:57
PROVIDERS: PCP Internal Medicine; Visit Provider Internal Medicine
DX: Z00.01 Encounter for general adult medical examination with abnormal findings (principal); I10 Essential (primary) hypertension; E04.2 Nontoxic multinodular goiter; E11.65 Type 2 diabetes mellitus with hyperglycemia; E83.52 Hypercalcemia; D51.0 Vitamin B12 deficiency anemia due to intrinsic factor deficiency
CPT/HCPCS: 36415; 80048; 80053; 80061; 82043; 82306; 82607; 82746; 83721; 83970; 84100; 84439; 84443

== ENCOUNTER → 2021-05-07 11:41 | Outpatient (BNVA) | payer MEDICARE, MEDICAID, SELFPAY | PROVIDERS: PCP Internal Medicine; Visit Provider Registered Nurse Diabetes Educator | DX: E11.65 Type 2 diabetes mellitus with hyperglycemia (principal) | CPT/HCPCS: Q3014 ==

== ENCOUNTER → 2021-05-24 10:03 | Outpatient (BNVA) | payer MEDICARE, MEDICAID, SELFPAY | PROVIDERS: PCP Internal Medicine; Visit Provider Registered Nurse Diabetes Educator | DX: E11.65 Type 2 diabetes mellitus with hyperglycemia (principal) | CPT/HCPCS: 99211 ==

== ENCOUNTER → 2021-06-03 07:53 | Outpatient (REF) | payer MEDICARE, MEDICAID, SELFPAY ==
--- NOTE | ~2021-06-03 | NM_ITS ---
Lexiscan Myocardial perfusion study Indication: Shortness of breath, chest pain, assess for coronary disease and ischemia Technique: The patient was brought in for a Lexiscan perfusion study on 06/03/2021 and was injected 0.4 mg of Lexiscan intravenously. Within a minute of this injection 25 mCi of sestamibi was given intravenously. Images were obtained using the SPECT gamma camera interlaced with the gating device. Images were obtained in supine position. Resting perfusion study was performed on 06/20/2020. Patient was administered 25 mCi of sestamibi intravenously at rest. Images were then obtained in supine position. Total DLP 93mGy-cm. Images were processed with the software and compared side to side in short axis, horizontal long axis and vertical long axis views. Findings: Raw acquisition was reviewed. The stress perfusion study showed diminished perfusion in the lateral wall also distal part of anterior wall. However there is improvement with CT attenuation correction and hence could all be from soft tissue attenuation artifact. The gated study shows mildly diminished LV systolic function with calculated LVEF of 47%-but visually appears higher. LV cavity is normal in size. The gated study shows normal wall thickening and contraction of segments. Resting study shows diminished tracer uptake along the lateral wall and towards the distal part of anterior wall. Improvement with CT attenuation correction suggesting soft tissue attenuation artifact. Gating at rest reveals normal wall motion with ejection fraction at 65%. The findings are consistent with no definitive reversible or fixed defects. Lateral/distal anterior fixed defect is suspected to be from soft tissue attenuation. NM/NM cardiolite stress test Impression: 1. Myocardial perfusion imaging study shows no clear evidence of any ischemia or infarction. Likely normal perfusion. 2. Gated LVEF is 47% during stress but visually appears higher; 65% during rest; correlate with echocardiogram. 3. Transient ischemic dilatation not present. EKG component of the test reported separately.
--- NOTE | 2021-06-03 08:07 | CA_ITS ---
Acquisition Time: 2021-06-03 09:05:36 Total Exercise Time: 00:06:42 Test Indications: CP, SOB Medications: SEE CHART Protocol: MOD ROLO Max HR: 117 BPM 75% of Pred: 155 BPM Max BP: 148/090 mmHG Max Work Load: 3.7 METS Exercise stress test with exercise 6 min 42 sec of Modified Rolo protocol, with request to stop due to leg pain, without sob or chest discomfort, without arrythmia, with normotensive response to exercise, with nondiagnostic EKG for ischemia due to suboptimal heart rate. Pt assisted to sitting position and test changed to a pharmaoclogical stress test with Lexiscan injection, without anginal symptoms, without arrythmia, with normotensive reponse to injection, with nondiagnostic EKG for ischemia. Nuclear images pending. Test reviewed with Dr Mehta. Referred By: Duke Izaguirre Overread By: MARIKA BUTLER
== END ==
LOC: HO.CARD 07:53
PROVIDERS: Visit Provider Internal Medicine Cardiovascular Disease
DX: R07.9 Chest pain, unspecified (principal)
CPT/HCPCS: 78452; 93017; A9500; J0280; J2785

== ENCOUNTER 2021-06-18 11:33 | Outpatient (REF) | payer MEDICARE, SELFPAY | END 2021-06-18 11:34 | disposition home or self-care (01) | LOC: HO.HMGCLDS 11:33 | PROVIDERS: Visit Provider Internal Medicine | DX: Z20.822 Contact with and (suspected) exposure to COVID-19 (principal) | CPT/HCPCS: C9803; U0003; U0005 ==

== ENCOUNTER 2021-07-02 11:08 | Day surgery (SDC) | payer MEDICARE, SELFPAY ==
--- NOTE | 2021-07-01 10:19 | HO.ANESPROP2 ---
Documented by User: Marley Martínez NP 07/01/21 10:25 HPI - Anesthesia Eval Consult details Narrative: 66yo F for Upper Endoscopy and Colonoscopy Cardiac cleared: Nuclear stress test completed yesterday shows no clear evidence of infarct or ischemia, EF 47% with stress but visually appears higher, EF 65% at rest.? Echo done on 09/06/20 shows EF 55-60%. Pt has multi cardiac risk factors, no known CAD. Pt is low cardiac risk to proceed with colonscopy/ upper endoscopy. Plavix for h/o CVA. OK to hold 2 days preop per PCP. *Myasthenia gravis* PMFSH Active Problems Active Problems: All Active Problems (Updated 04/10/21 @ 15:26 by Melly Day PA-C) Cellulitis (Acute) Cough (Acute) Tubular adenoma of colon (Acute) COVID-19 vaccine series declined (Acute) Cigarette smoker one half pack a day or less (Acute) Pain of plantar aspect of heel (Acute) Small intestinal bacterial overgrowth (Acute) GERD (gastroesophageal reflux disease) (Acute) Irritable bowel syndrome with diarrhea (Acute) Dyspnea (Acute) Intermittent palpitations (Acute) Pernicious anemia (Acute) Myasthenia gravis (Acute) Urge urinary incontinence (Acute) Microalbuminuria (Acute) Vitamin D deficiency (Acute) Hypercalcemia (Acute) Hypothyroidism (Acute) Multinodular thyroid (Acute) HLD (hyperlipidemia) (Acute) HTN (hypertension) (Acute) T2DM (type 2 diabetes mellitus) (Acute) Patellofemoral pain syndrome of right knee (Acute) Patellofemoral pain syndrome of left knee (Acute) Past Medical History Medical History Cigarette smoker motivated to quit Cigarette smoker one half pack a day or less Colitis without complication COVID-19 vaccine series declined Dizziness, nonspecific History of CVA (cerebrovascular accident) History of kidney stones HLD (hyperlipidemia) HTN (hypertension) Hypercalcemia Hypothyroidism Kidney calculi Lacunar stroke, acute Lumbar back pain Microalbuminuria Multinodular thyroid Myasthenia gravis Myasthenia gravis Pain of plantar aspect of heel Passed out Pernicious anemia T2DM (type 2 diabetes mellitus) Ureteral stone with hydronephrosis Urge urinary incontinence Vitamin D deficiency Family History Family History Father Lung cancer Mother Asthma Diabetes HTN (hypertension) Heart attack Sister FH: mental illness Leukemia Mental health disorder Surgical History Surgical History History of bilateral cataract extraction History of esophagogastroduodenoscopy (EGD) History of hernia repair History of hysterectomy History of lithotripsy History of parathyroidectomy Hx of colonoscopy (~2014) Social History Social History Household Members: None Alcohol intake: current Alcohol intake frequency: does not drink Patient Tobacco Use Status: Current everyday Tobacco user Tobacco use type: Cigarette Cigarettes Per Day: 5 Years Smoked: 45 Use of substances other than those prescribed or required for medical reasons: No Are you DNR?: No Advance Directives: No Advance Directives Information Provided: No Advance Directives on File: No Current occupational status: disabled Meds Allergies Allergy/AdvReac Type Severity Reaction Status Date / Time Penicillins [PCN] Allergy Unknown RASH Verified 06/19/21 15:03 gabapentin AdvReac Unknown Dizziness Verified 06/19/21 15:03 Home Medications Medication Instructions Recorded Confirmed Last Taken Type atorvastatin 80 mg tablet 80 mg PO DAILY 03/23/20 06/19/21 Unknown History vitamin B complex (B 1 tab PO DAILY 05/14/20 06/19/21 Unknown History Complex-Vitamin B12) potassium citrate 10 mEq (1,080 10 meq PO BID 07/05/20 06/19/21 Unknown History mg) tablet,extended release pyridostigmine bromide 180 mg 180 mg PO TID-QID tab 10/29/20 06/19/21 Unknown History tablet,extended release hydrochlorothiazide 25 mg tablet 25 mg PO DAILY 02/28/21 06/19/21 Unknown History mycophenolate mofetil 500 mg tablet 1,000 mg PO TID 02/28/21 06/19/21 Unknown History ehyxgq-tulhsaod-bmzakus 1 cap PO QID 03/01/21 06/19/21 Unknown History 24,000-76,000-120,000 unit capsule,delayed rel (Creon) Exam Exam Date and Time: July 01, 2021 1019 Pertinent Lab Results Pertinent Lab Results: Laboratory Tests 09/14/20 05/06/21 10:30 11:08 WBC 8.9 Hgb 15.4 Hct 46.2 Plt Count 298 Sodium 138 Potassium 4.1 Chloride 102 Carbon Dioxide 28 BUN 21 H Creatinine 0.74 Narrative Narrative: EKG 12/2020 NSR, normal EKG, QTc 428 msec ECHO 08/2020 Conclusions: - The left ventricular systolic function is normal.? The visually estimated ejection fraction is between 55-60%. ? - No obvious valvular pathology seen on this study.?? NM cardiolite stress test 06/2021 Impression: ? 1.? Myocardial perfusion imaging study shows no clear evidence of any ischemia or infarction. Likely normal perfusion. 2.? Gated LVEF is 47% during stress but visually appears higher; 65% during rest; correlate with echocardiogram. 3. Transient ischemic dilatation not present. ? EKG component of the test reported separately. (Nondiagnostic) Assessment and Plan Assessment Anesthesia Assessment: Chart Reviewed Documented by User: Jimmy Cheema 07/02/21 15:06 HPI - Anesthesia Eval Consult details Narrative: 66yo F for Upper Endoscopy and Colonoscopy Cardiac cleared: Nuclear stress test completed yesterday shows no clear evidence of infarct or ischemia, EF 47% with stress but visually appears higher, EF 65% at rest.? Echo done on 09/06/20 shows EF 55-60%. Pt has multi cardiac risk factors, no known CAD. Pt is low cardiac risk to proceed with colonoscopy/ upper endoscopy. Plavix for h/o CVA. OK to hold 2 days preop per PCP. CVA x3 , right weakness more than left *Myasthenia gravis* , took Pyridostigmine this AM [facility] Past Medical History Medical History Cigarette smoker motivated to quit Cigarette smoker one half pack a day or less Colitis without complication COVID-19 vaccine series declined Dizziness, nonspecific History of CVA (cerebrovascular accident) History of kidney stones HLD (hyperlipidemia) HTN (hypertension) Hypercalcemia Hypothyroidism Kidney calculi Lacunar stroke, acute Lumbar back pain Microalbuminuria Multinodular thyroid Myasthenia gravis Myasthenia gravis Pain of plantar aspect of heel Passed out Pernicious anemia T2DM (type 2 diabetes mellitus) Ureteral stone with hydronephrosis Urge urinary incontinence Vitamin D deficiency Family History Family History Father Lung cancer Mother Asthma Diabetes HTN (hypertension) Heart attack Sister FH: mental illness Leukemia Mental health disorder Family history of problems with anesthesia: No Surgical History Surgical History History of bilateral cataract extraction History of esophagogastroduodenoscopy (EGD) History of hernia repair History of hysterectomy History of lithotripsy History of parathyroidectomy Hx of colonoscopy (~2014) History of Problems with Anesthesia: No Social History Social History Household Members: None Alcohol intake: current Alcohol intake frequency: does not drink Patient Tobacco Use Status: Current everyday Tobacco user Tobacco use type: Cigarette Cigarettes Per Day: 5 Years Smoked: 45 Use of substances other than those prescribed or required for medical reasons: No Are you DNR?: No Advance Directives: No Advance Directives Information Provided: No Advance Directives on File: No Current occupational status: disabled Meds Allergies Allergy/AdvReac Type Severity Reaction Status Date / Time Penicillins [PCN] Allergy Unknown RASH Verified 06/19/21 15:03 gabapentin AdvReac Unknown Dizziness Verified 06/19/21 15:03 Home Medications Medication Instructions Recorded Confirmed Last Taken Type atorvastatin 80 mg tablet 80 mg PO DAILY 03/23/20 06/19/21 Unknown History vitamin B complex (B 1 tab PO DAILY 05/14/20 06/19/21 Unknown History Complex-Vitamin B12) potassium citrate 10 mEq (1,080 10 meq PO BID 07/05/20 06/19/21 Unknown History mg) tablet,extended release pyridostigmine bromide 180 mg 180 mg PO TID-QID tab 10/29/20 06/19/21 Unknown History tablet,extended release hydrochlorothiazide 25 mg tablet 25 mg PO DAILY 02/28/21 06/19/21 Unknown History mycophenolate mofetil 500 mg tablet 1,000 mg PO TID 02/28/21 06/19/21 Unknown History dezmnc-kdhfavll-tcrcbqz 1 cap PO QID 03/01/21 06/19/21 Unknown History 24,000-76,000-120,000 unit capsule,delayed rel (Creon) Exam Airway Mallampati Class: III TM Dist: >3cm Neck ROM: Full Loose/Missing/Broken Teeth: Yes (Chipped ) Heart: rrr Lungs: bl breath sounds Assessment and Plan Assessment Anesthesia Assessment: Anesthesia Plan Discussed Final Anesthetic Review Family History of Problems with Anesthesia: No History of Problems with Anesthesia: No NPO: Yes ASA Class: III Final Preanesthetic Review: Meds/Allgs Chart Reviewed, Consent Obtained/Reviewed and Anes Risks/Benef Reviewed Patient Risk: High Procedure Risk: Intermediate Anesthetic Plan Anesthetic Plan: MAC: Disposition: Standard PACU
[2021-07-02 11:19] VITALS: BP 159/87; PULSE 83; RESP 18; TEMP 36.4; O2SAT 95; BMI 26.4
--- NOTE | 2021-07-02 11:45 | P.BOP_ITS ---
Brief Operative Note Date of Service: 07/02/21 Pre-op diagnosis: Colom cancer screening, hx of colon polyps, loose stools, GERD Post-op diagnosis: other (GERD, Hiatal hernia, Gastritis, gastric and duodenal nodules, colon polyps, AVMs right colon, diverticulosis) Procedure: FLEXIBLE TRANSORAL UPPER GASTROINTESTINAL ENDOSCOPY WITH BIOPSIES AND COLONOSCOPY TILL CECUM WITH BIOPSIES, SNARE POLYPECTOMY AND SUBMUCOSAL INJECTION UPPER ENDOSCOPY Consent: Indications for the procedure and potential complications of bleeding, perforation, reaction to medications and missed diagnosis were discussed with the patient and informed consent was obtained. Instrument: Olympus GIF H 190 mid size upper endoscope Monitoring: Vital signs and clinical assessment, continuous EKG monitoring, Pulse oximetry, Carbon Dioxide monitoring and blood pressure monitoring were done throughout the procedure. Procedure: The patient was placed in the left lateral decubitis position and pre-procedure medications were administered and a bite block was placed. The endoscope was inserted into the mouth and advanced under direct vision to the third part of duodenum. A careful inspection was made as the upper endoscope was withdrawn including a retroflexed examination of the proximal stomach; Findings and interventions are described below. Findings: Larynx: Normal Esophagus: GE junction at 30 cms, hiatal hernia 30 to 34 cms. No esophagitis or Ann's. Stomach: Moderate diffuse gastric erythema with nodular appearing gastric mucosa. Biopsies were obtained from the gastric antrum and body. A 1.5 cms benign appearing nodule in the antrum with central ulceration - bi opsied. Grade 3 flap valve on retroflexed examination of the cardia. Duodenum: Multiple 10-15 mm benign appearing nodules in the bulb - biopsied. Normal descending duodenum - biopsies were obtained to check for celiac sprue Intervention: Biopsies as noted above COLONOSCOPY PROCEDURE NOTE Consent: Indications for the procedure and potential complications of bleeding, perforation, reaction to medications and missed diagnosis were discussed with the patient and informed consent was obtained. Instrument: Olympus PCF H 190 L variable stiffness pediatric colonoscope Monitoring: Vital signs and clinical assessment, intermittent blood pressure monitoring, continuous EKG monitoring, Pulse oximetry and Carbon Dioxide monitoring were done throughout the procedure. Colon withdrawl time was 31 minutes. Procedure: The patient was placed in the left lateral decubitis position and pre-procedure medications were administered. After a digital rectal examination of the ano-rectum, the video colonoscope was inserted into the rectum and advanced through the colon to the cecum. The colonoscope was slowly withdrawn in a retrograde panoramic fashion and the colon mucosa was carefully examined including a retroflexed view of the rectum. Findings and interventions are described below. Procedure Difficulty: : Without difficulty Findings: Terminal Ileum: Not evaluated Cecum: Multiple 5 to 10 mm non-bleeding AVMs in the cecum and proximal AC. A 7-8 mm flat polyp raised with 4 cc of Orise solution and unable to snare the polyp. Polyp was removed with the cold biopsy. Ascending Colon: Normal Transverse Colon: Normal Descending Colon: Moderate diverticulosis Sigmoid Colon: A 12- 15 mm sessile polyp at 20 cms - removed with a hot snare. Moderate diverticulosis Rectum: Normal Ano-rectum: Normal Colon preparation: Good after copious irrigation and fair in the right colon due to a layer of adherent stools. Impression and Post Procedure Diagnosis: Endoscopy Findings: ESOPHAGUS: Hiatal hernia STOMACH: Moderate diffuse gastric erythema with nodular appearing gastric mucosa. Biopsies were obtained from the gastric antrum and body. A 1.5 cms benign appearing nodule in the antrum with central ulceration - biopsied. DUODENUM: Multiple 10-15 mm benign appearing nodules in the bulb - biopsied. Normal descending duodenum - biopsies were obtained to check for celiac sprue Colonoscopy Findings: Two medium sized polyps removed. Multiple 5 to 10 mm non-bleeding AVMs in the cecum and proximal AC. Random biopsies obtained from the colon to check for microscopic colitis. Moderate diverticulosis seen in the left colon Plan: Await pathology results Patient has an appointment on 07/08/21 in the GI Clinic with Karon Puente NP. Repeat Colonoscopy interval based on path results - in 3-5 years if polyps are adenomatous and and due to a history of colon polyps Above findings were reviewed with the patient and GERD, Hiatal Hernia, colon polyps and diverticulosis handouts were given in the discharge area Surgeon: Doreen Diggs MD Anesthesia: MAC (Dr Cheema) Was an Biological Chemist used for this Procedure?: Yes Biological Chemist: Geno Vides Estimated blood loss (mL): 0 Pathology: other (a: small bowel bx's r/o celiac b: duodenal nodule c: bx's gastric antrum r/o h. pylori d: gastric antrum nodule e: bx's gastric body f: cecal polyp - orise used- ) Condition: stable Disposition: PACU
--- NOTE | 2021-07-02 11:46 | MHC.SHP ---
Pre-Procedural Eval Section A Date of Service: 07/02/21 The patient is an INPATIENT: No The History & Physical has been completed within 30 days and I have reviewed it.: No Section B Chief Complaint: IBS with Diarrhea, GERD Details of Present Illness: Colon cancer screening, IBS with diarrhea, GERD Relevant Family History (Specify if Yes): No Relevant Social History: Tobacco Use Present Medications: see Short Stay Collaborative assessment Medical History: Significant History (Cigarette smoker motivated to quit Cigarette smoker one half pack a day or less COVID-19 vaccine series declined Diabetes mellitus Dizziness, nonspecific HLD (hyperlipidemia) HTN (hypertension) Hypercalcemia Hypothyroidism Kidney calculi Lacunar stroke, acute Lumbar back pain Microalbuminuria Multin) History of Previous Operations: Relevant previous surgery/procedure and date(s) (History of bilateral cataract extraction History of esophagogastroduodenoscopy (EGD) History of hernia repair History of hysterectomy History of lithotripsy History of parathyroidectomy Hx of colonoscopy (~2014)) Allergies: Allergies Allergy/AdvReac Type Severity Reaction Status Date / Time Penicillins [PCN] Allergy Unknown RASH Verified 06/19/21 15:03 gabapentin AdvReac Unknown Dizziness Verified 06/19/21 15:03 Review of Systems Sugical H&P ROS: Negative: Constitution, Cardiovascular and Respiratory and Yes, Specify: Gastrointestinal (diarrhea) Exam Surgical H&P Exam: Normal: Heart, Normal: Lungs, Normal: Extremities and Normal: Abdomen Plan Diagnosis/Plan: Unchanged I have reviewed the history and physical and performed a pertinent physical examination on my patient. No changes have occurred unless specified.
[2021-07-02 11:49] LABS: Glucose, Whole Blood 213 mg/dL (60-115)
--- NOTE | 2021-07-02 12:44 | W.PM.OPN ---
Operative Note Operative Note Date of Service: 07/02/21 Narrative: Pre-op diagnosis: Colon cancer screening, hx of colon polyps, loose stools, GERD Post-op diagnosis:?other (GERD, Hiatal hernia, Gastritis, gastric and duodenal nodules, colon polyps, AVMs right colon, diverticulosis) Procedure: FLEXIBLE TRANSORAL UPPER GASTROINTESTINAL ENDOSCOPY WITH BIOPSIES AND COLONOSCOPY TILL CECUM WITH BIOPSIES, SNARE POLYPECTOMY AND SUBMUCOSAL INJECTION UPPER ENDOSCOPY Consent:?Indications for the procedure and potential complications of bleeding, perforation, reaction to medications and missed diagnosis were discussed with the patient and informed consent was obtained. Instrument:?Olympus GIF H 190 mid size upper endoscope Monitoring: Vital signs and clinical assessment, continuous EKG monitoring, Pulse oximetry, Carbon Dioxide monitoring and blood pressure monitoring were done throughout the procedure. Procedure:?The patient was placed in the left lateral decubitis position and pre-procedure medications were administered and a bite block was placed. The endoscope was inserted into the mouth and advanced under direct vision to the third part of duodenum. A careful inspection was made as the upper endoscope was withdrawn including a retroflexed examination of the proximal stomach; Findings and interventions are described below. Findings: Larynx:? Normal Esophagus:?GE junction at 30 cms, hiatal hernia 30 to 34 cms.? No esophagitis or Ann's. Stomach:?Moderate diffuse gastric erythema with nodular appearing gastric mucosa. Biopsies were obtained from the gastric antrum and body.? A 1.5 cms benign appearing nodule in the antrum with central ulceration - biopsied. Grade 3 flap valve on retroflexed examination of the cardia. Duodenum:?Multiple 10-15 mm benign appearing nodules in the bulb - biopsied. Normal descending duodenum - biopsies were obtained to check for celiac sprue Intervention:?Biopsies as noted above COLONOSCOPY PROCEDURE NOTE Consent:?Indications for the procedure and potential complications of bleeding, perforation, reaction to medications and missed diagnosis were discussed with the patient and informed consent was obtained. Instrument:?Olympus PCF H 190 L variable stiffness pediatric colonoscope Monitoring:?Vital signs and clinical assessment, intermittent blood pressure monitoring, continuous EKG monitoring, Pulse oximetry and Carbon Dioxide monitoring were done throughout the procedure. Colon withdrawl time was 31 minutes. Procedure:?The patient was placed in the left lateral decubitis position and pre-procedure medications were administered. After a digital rectal examination of the ano-rectum, the video colonoscope was inserted into the rectum and advanced through the colon to the cecum. The colonoscope was slowly withdrawn in a retrograde panoramic fashion and the colon mucosa was carefully examined including a retroflexed view of the rectum. Findings and interventions are described below. Procedure Difficulty:?: Without difficulty Findings: Terminal Ileum: Not evaluated Cecum: Multiple 5 to 10 mm non-bleeding AVMs in the cecum and proximal AC. A 7-8 mm flat polyp raised with 4 cc of Orise solution and unable to snare the polyp. Polyp was removed with the cold biopsy. Ascending Colon:??Normal Transverse Colon:??Normal Descending Colon:? Moderate diverticulosis Sigmoid Colon:? A 12- 15 mm sessile polyp at 20 cms - removed with a hot snare.? Moderate diverticulosis Rectum:??Normal Ano-rectum:??Normal Colon preparation:? Good after copious irrigation and fair in the right colon due to a layer of adherent stools. Impression and Post Procedure Diagnosis: Endoscopy Findings: ESOPHAGUS: Hiatal hernia STOMACH: Moderate diffuse gastric erythema with nodular appearing gastric mucosa. Biopsies were obtained from the gastric antrum and body.? A 1.5 cms benign appearing nodule in the antrum with central ulceration - biopsied. DUODENUM: Multiple 10-15 mm benign appearing nodules in the bulb - biopsied. Normal descending duodenum - biopsies were obtained to check for celiac sprue Colonoscopy Findings: Two medium sized polyps removed. Multiple 5 to 10 mm non-bleeding AVMs in the cecum and proximal AC. Random biopsies obtained from the colon to check for microscopic colitis. Moderate diverticulosis seen in the left colon Plan: Await pathology results Patient has an appointment on 07/08/21 in the [facility] with? Karon Puente NP. Repeat Colonoscopy interval based on path results - in 3-5 years if polyps are adenomatous and and due to a history of colon polyps Above findings were reviewed with the patient and GERD, Hiatal Hernia, colon polyps and diverticulosis handouts were given in the discharge area Surgeon: Doreen Diggs MD Anesthesia:?MAC (Dr Cheema) Was an Porcelain Enamel Laborer used for this Procedure?:?Yes Porcelain Enamel Laborer:?Geno Vides Estimated blood loss (mL):?0 Pathology:?other (a: small bowel bx's r/o celiac? b: duodenal nodule? c: bx's gastric antrum r/o h. pylori? d: gastric antrum nodule? e: bx's gastric body? f: cecal polyp - orise used-? ) Condition:?stable Disposition:?PACU
[2021-07-02 14:01] VITALS: BP 110/63; PULSE 76; RESP 17; TEMP 36.1; O2SAT 99
[2021-07-02 14:16] VITALS: BP 106/67; PULSE 74; RESP 18; TEMP 36.1; O2SAT 98
== END 2021-07-02 14:41 | disposition home or self-care (01) ==
PROVIDERS: PCP Internal Medicine; Visit Provider Internal Medicine Gastroenterology
PROC: (CPT 45385; principal; 2021-07-02 12:20)
DX: Z12.11 Encounter for screening for malignant neoplasm of colon (principal); K58.0 Irritable bowel syndrome with diarrhea; D12.5 Benign neoplasm of sigmoid colon; K63.5 Polyp of colon; K55.20 Angiodysplasia of colon without hemorrhage; K57.30 Diverticulosis of large intestine without perforation or abscess without bleeding; K21.9 Gastro-esophageal reflux disease without esophagitis; K29.50 Unspecified chronic gastritis without bleeding; D13.2 Benign neoplasm of duodenum; D37.1 Neoplasm of uncertain behavior of stomach; K44.9 Diaphragmatic hernia without obstruction or gangrene; B96.81 Helicobacter pylori [H. pylori] as the cause of diseases classified elsewhere; I10 Essential (primary) hypertension; G70.00 Myasthenia gravis without (acute) exacerbation; E03.9 Hypothyroidism, unspecified; E78.5 Hyperlipidemia, unspecified; E83.52 Hypercalcemia; E11.9 Type 2 diabetes mellitus without complications; Z79.4 Long term (current) use of insulin; Z79.82 Long term (current) use of aspirin; Z86.73 Personal history of transient ischemic attack (TIA), and cerebral infarction without residual deficits; Z79.899 Other long term (current) drug therapy; Z80.0 Family history of malignant neoplasm of digestive organs; Z88.8 Allergy status to other drugs, medicaments and biological substances; Z87.442 Personal history of urinary calculi; F17.210 Nicotine dependence, cigarettes, uncomplicated
CPT/HCPCS: 45385; 45380; 45381; 43239; 82947; 88305; 88342

== ENCOUNTER 2021-07-04 08:28 | Outpatient (REF) | payer MEDICARE, SELFPAY ==
--- NOTE | 2021-07-04 10:02 | PM.OP ---
Brief Operative Note Date of Service: 07/04/21 Pre-op diagnosis: Multinodular thyroid Procedure: This is doctor Santa Luong. This is an ultrasound-guided fine-needle aspiration report. Date of Examination: 07/04/2021 Indication: Multinodular Thyroid Porcedure: Procedure was explained to the patient. Alternatives, the risk and benefits were discussed. Written consent was obtained. A time-out was also obtained. After sterile preparation, fine-needle aspiration of a right mid pole 1.3 cm thyroid nodule was performed using direct ultrasound guidance to confirm accurate needle placement. Four aspirations were made using 27 gauge needles. An additional 2 aspirations were made using 25 guage needles. Samples were submitted for cytology. 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 The patient tolerated the procedure well. Aftercare instructions were provided. Impression: Uncomplicated fine needle aspiration biopsy of a right mid pole 1.3 cm thyroid nodule under ultrasound guidance. Of note, no L lobe nodules were visualized today. The L lobe of the thyroid appears diffusely heterogenous but no true nodules were identified. Surgeon: Santa Luong, DO Was an Stave Hewer used for this Procedure?: No Estimated blood loss (mL): 0
[2021-07-04] MEDS: Lidocaine HCl 1 % MPF 5 ML VIAL 2 ML SUBCUT (11:33)
== END 2021-07-04 08:29 | disposition home or self-care (01) ==
LOC: HO.US 08:28
PROVIDERS: Visit Provider Internal Medicine
DX: E04.2 Nontoxic multinodular goiter (principal)
CPT/HCPCS: 10005; 88172; 88173; 88177

== ENCOUNTER → 2021-07-08 13:54 | Outpatient (BNVA) | payer MEDICARE, SELFPAY | PROVIDERS: PCP Internal Medicine; Referring Provider Internal Medicine; Visit Provider Nurse Practitioner | DX: D12.6 Benign neoplasm of colon, unspecified (principal); K58.0 Irritable bowel syndrome with diarrhea; K21.9 Gastro-esophageal reflux disease without esophagitis; A04.8 Other specified bacterial intestinal infections | CPT/HCPCS: 99212 ==

== ENCOUNTER 2021-07-16 13:07 | Outpatient (REF) | payer MEDICARE, SELFPAY ==
[2021-07-16 15:26] LABS: Free T4 (Free Thyroxine) 0.99 ng/dL (0.71-1.85); Thyroid Stimulating Hormone 8.71 uIU/mL (0.32-4.0)
== END 2021-07-16 13:08 | disposition home or self-care (01) ==
LOC: HO.HMGCLDS 13:07
PROVIDERS: Absent Provider Internal Medicine; Visit Provider Internal Medicine
DX: E89.0 Postprocedural hypothyroidism (principal)
CPT/HCPCS: 36415; 84439; 84443

== ENCOUNTER → 2021-07-17 11:54 | Outpatient (BNVA) | payer MEDICARE, SELFPAY | PROVIDERS: PCP Internal Medicine; Visit Provider Internal Medicine | DX: E89.0 Postprocedural hypothyroidism (principal); E55.9 Vitamin D deficiency, unspecified; E83.52 Hypercalcemia; E78.5 Hyperlipidemia, unspecified; I10 Essential (primary) hypertension | CPT/HCPCS: Q3014 ==

== ENCOUNTER 2021-08-26 09:54 | Outpatient (REF) | payer MEDICARE, SELFPAY ==
[2021-08-26 12:18] LABS: Cholesterol 145 mg/dL; HDL Cholesterol 37 mg/dL; LDL Cholesterol Calculated 75 mg/dl; Triglycerides 166 mg/dL
[2021-08-26 12:25] LABS: Alanine Aminotransferase 22 U/L (0-31); Alkaline Phosphatase 102 U/L (39-117); Anion Gap 11 (12-20); Aspartate Amino Transferase 15 U/L (5-31); Bilirubin Total 0.4 mg/dL (0.0-1.0); Blood Urea Nitrogen 15 mg/dL (9-16); Calcium 9.6 mg/dL (8.4-10.2); Carbon Dioxide 27 mmol/L (22-29); Chloride 102 mmol/L (96-108); Cholesterol 145 mg/dL; Estimated Glomerular Filt Rate > 60; Glucose Random 232 mg/dL (60-115); HDL Cholesterol 37 mg/dL; LDL Cholesterol Calculated 76 mg/dl; Potassium 3.7 mmol/L (3.3-5.1); Sodium 136 mmol/L (135-145); Total Protein 6.7 g/dL (6.5-8.0); Triglycerides 162 mg/dL; Vitamin D 25-OH Total 29.8 ng/mL (>30)
[2021-08-26 12:38] LABS: Creatinine Urine 243.81 mg/dL
[2021-08-26 12:38] LABS: Estimated Average Glucose 303 mg/dL; Hemoglobin A1c % 12.2 %
[2021-08-26 12:45] LABS: Thyroid Stimulating Hormone 6.78 uIU/mL (0.32-4.0)
[2021-08-27 18:25] LABS: LDL Cholesterol Direct 85 mg/dL (<100)
== END 2021-08-26 09:55 | disposition home or self-care (01) ==
LOC: HO.HMGCLDS 09:54
PROVIDERS: Absent Provider Internal Medicine; PCP Internal Medicine; Visit Provider Internal Medicine
DX: E55.9 Vitamin D deficiency, unspecified (principal); E78.5 Hyperlipidemia, unspecified; E04.2 Nontoxic multinodular goiter; E11.65 Type 2 diabetes mellitus with hyperglycemia
CPT/HCPCS: 36415; 80053; 80061; 82043; 82306; 83036; 83721; 84439; 84443

== ENCOUNTER 2021-08-29 14:06 | Outpatient (REF) | payer MEDICARE, SELFPAY ==
--- NOTE | ~2021-08-29 | XR_ITS ---
EXAMINATION: XR LUMBOSACRAL SPINE CLINICAL INFORMATION: Low back pain COMPARISON: Previous x-ray March 2018 TECHNIQUE: Three views of the lumbosacral spine. FINDINGS: Bone alignment is normal. No fracture or dislocation is seen. There is degenerative disc disease at L4-L5 and L5-S1. There is lower lumbar spine facet arthritis. There is atherosclerotic disease. XR/XR lumbar spine 2-3V IMPRESSION: Degenerative changes.
== END 2021-08-29 14:07 | disposition home or self-care (01) ==
LOC: HO.HMGCX 14:06
PROVIDERS: Visit Provider Internal Medicine
DX: M54.50 Low back pain, unspecified (principal); G89.29 Other chronic pain
CPT/HCPCS: 72100

== ENCOUNTER → 2021-09-02 13:48 | Outpatient (BNVA) | payer MEDICARE, SELFPAY | PROVIDERS: PCP Internal Medicine; Referring Provider Internal Medicine; Visit Provider Internal Medicine Cardiovascular Disease | DX: G47.30 Sleep apnea, unspecified (principal); I10 Essential (primary) hypertension | CPT/HCPCS: 93005; 99212 ==

== ENCOUNTER → 2021-09-09 13:22 | Outpatient (BNVA) | payer MEDICARE, SELFPAY | PROVIDERS: PCP Internal Medicine; Visit Provider Internal Medicine | DX: E11.65 Type 2 diabetes mellitus with hyperglycemia (principal); E04.2 Nontoxic multinodular goiter; E89.0 Postprocedural hypothyroidism; E55.9 Vitamin D deficiency, unspecified; E83.52 Hypercalcemia; E78.5 Hyperlipidemia, unspecified; I10 Essential (primary) hypertension; Z79.4 Long term (current) use of insulin; Z79.84 Long term (current) use of oral hypoglycemic drugs | CPT/HCPCS: 82947; 99212 ==

== ENCOUNTER → 2021-09-16 12:59 | Outpatient (BNVA) | payer MEDICARE, SELFPAY | PROVIDERS: PCP Internal Medicine; Referring Provider Internal Medicine; Visit Provider Nurse Practitioner | DX: Z13.89 Encounter for screening for other disorder (principal) ==

== ENCOUNTER 2021-10-02 12:51 | Outpatient (REF) | payer MEDICARE, SELFPAY ==
--- NOTE | ~2021-10-02 | CT_ITS ---
EXAMINATION: CT CHEST SCREENING CLINICAL INFORMATION: Nicotine dependence. COMPARISON: CT chest 04/10/2020. TECHNIQUE: Multidetector volumetric CT imaging of the chest is performed without contrast using low dose technique. Additional 2-D coronal and sagittal reformatted images and axial 3-D maximum intensity projection (MIP) images are generated on the CT workstation. This CT examination was performed using dose optimization techniques as appropriate, variously including the following: *Automated exposure control *Adjustment of mA and/or kV according to patient size (this includes techniques or standardized protocols for targeted exams where dose is matched to indication/reason for exam; i.e. extremities or head) *Use of iterative reconstruction technique DLP: 46 mGy-cm FINDINGS: LUNGS: The lungs are well expanded without acute pneumonic process. There are scattered calcified pulmonary nodules, the largest in the right upper lobe perivascular measuring 3 mm and 4 mm adjacent to each other on axial image 21/4. MEDIASTINUM: The thyroid lobes are symmetrical and normal. The central trachea and the bronchi are widely patent. The heart size and the great vessels are normal caliber. There are trace coronary artery calcifications. No pericardial effusion seen. PLEURA: There is no pleural effusion. No pleural mass or thickening. AXILLA: No lymphadenopathy. UPPER ABDOMEN: The visualized liver, spleen, pancreas, and bilateral adrenal glands are unremarkable. The gallbladder has been surgically removed. OSSEOUS STRUCTURES: There are degenerative disc changes and spondylosis throughout the thoracic spine. No lytic or sclerotic process seen. CT/CT lung screening IMPRESSION: Stable multiple calcified pulmonary nodules. No new noncalcified or calcified pulmonary nodules seen. No abnormal mediastinal or axillary lymphadenopathy. ASSESSMENT: Lung-RADS category 2: Benign. RECOMMENDATION: Low-dose annual CT chest.
== END 2021-10-02 12:52 | disposition home or self-care (01) ==
LOC: HO.CT 12:51
PROVIDERS: PCP Internal Medicine; Visit Provider Physician Assistant Medical
DX: Z12.2 Encounter for screening for malignant neoplasm of respiratory organs (principal); F17.210 Nicotine dependence, cigarettes, uncomplicated
CPT/HCPCS: 71271

== ENCOUNTER 2021-10-10 11:10 | Outpatient (REF) | payer MEDICARE, SELFPAY ==
--- NOTE | ~2021-10-10 | US_ITS ---
EXAMINATION: UNILATERAL TRIPLEX SCANNING OF THE LEFT LOWER EXTREMITY CLINICAL INFORMATION: Left lower extremity swelling. COMPARISON: 09/14/2020 TECHNIQUE: Color-flow triplex imaging with spectral analysis and compression Doppler were performed on the left lower extremity. FINDINGS: Respiratory variation, normal compression and augmented flow are noted throughout the lower extremity. The visualized common femoral vein, superficial femoral vein, profunda femoral vein, popliteal vein and mid calf peroneal and posterior tibial venous segments show no evidence of deep venous thrombosis. There is no Anderson's cyst. US/US venous duplex LE LT IMPRESSION: Normal triplex scan without evidence of deep venous thrombosis involving the left lower extremity.
== END 2021-10-10 11:11 | disposition home or self-care (01) ==
LOC: HO.US 11:10
PROVIDERS: PCP Nurse Practitioner Acute Care; Visit Provider Nurse Practitioner Acute Care
DX: I82.402 Acute embolism and thrombosis of unspecified deep veins of left lower extremity (principal); M79.662 Pain in left lower leg
CPT/HCPCS: 93971

== ENCOUNTER 2021-10-16 13:39 | Outpatient (RCR) | payer OTHER, SELFPAY | END 2021-10-22 14:24 | disposition home or self-care (01) | LOC: HO.WCC 13:39 | PROVIDERS: PCP Nurse Practitioner Acute Care; Visit Provider Surgery | DX: Z09 Encounter for follow-up examination after completed treatment for conditions other than malignant neoplasm (principal); E11.51 Type 2 diabetes mellitus with diabetic peripheral angiopathy without gangrene; I70.212 Atherosclerosis of native arteries of extremities with intermittent claudication, left leg; Z86.73 Personal history of transient ischemic attack (TIA), and cerebral infarction without residual deficits; F17.210 Nicotine dependence, cigarettes, uncomplicated; I10 Essential (primary) hypertension; Z79.4 Long term (current) use of insulin; Z79.84 Long term (current) use of oral hypoglycemic drugs | CPT/HCPCS: 99213 ==

== ENCOUNTER → 2021-10-16 14:58 | Outpatient (REF) | payer OTHER, SELFPAY | LOC: HO.SL 14:58 | PROVIDERS: PCP Internal Medicine; Visit Provider Internal Medicine Cardiovascular Disease | DX: G47.30 Sleep apnea, unspecified (principal); R06.83 Snoring | CPT/HCPCS: 95806 ==

== ENCOUNTER → 2021-10-24 11:18 | Outpatient (BNVA) | payer OTHER, SELFPAY | PROVIDERS: PCP Internal Medicine; Referring Provider Internal Medicine; Visit Provider Internal Medicine Cardiovascular Disease | DX: K92.2 Gastrointestinal hemorrhage, unspecified (principal); I10 Essential (primary) hypertension | CPT/HCPCS: 99212 ==

== ENCOUNTER 2021-10-24 12:15 | Inpatient (IN) | payer OTHER, SELFPAY ==
--- NOTE | ~2021-10-24 | CT_ITS ---
EXAMINATION: CT ABDOMEN AND PELVIS WITHOUT CONTRAST CLINICAL INFORMATION: Blood per rectum and hematuria COMPARISON: 11/26/2020 TECHNIQUE: Multidetector volumetric imaging was performed from the superior aspect of the liver through the pubic symphysis. Sagittal and coronal reformatted images were obtained on the technologist's workstation. This CT examination was performed using dose optimization techniques as appropriate, variously including the following: *Automated exposure control *Adjustment of mA and/or kV according to patient size (this includes techniques or standardized protocols for targeted exams where dose is matched to indication/reason for exam; i.e. extremities or head) *Use of iterative reconstruction technique DLP: 471 mGy-cm FINDINGS: LUNG BASES: The visualized lung bases are unremarkable. LIVER, GALLBLADDER, AND BILIARY TREE: The liver is normal in size, shape, and attenuation. No focal hepatic lesion or biliary ductal dilatation is present. Status post cholecystectomy PANCREAS: Unremarkable. SPLEEN: Unremarkable. ADRENAL GLANDS: Unremarkable. KIDNEYS AND URETERS: Hydronephrosis on the right. This is caused by a 5 mm calculus in the proximal right ureter BLADDER: Unremarkable. GASTROINTESTINAL TRACT: Diverticulosis but no evidence for diverticulitis. The bowel pattern is nonobstructing There is a cystic area in the right lower quadrant which is intimately associated with the cecum and may well represent a cystic proximal appendix. This area is large measuring approximately 6.9 x 3.1 cm. Cystic tumor would need to be considered. ABDOMINAL WALL: No significant hernia is appreciated. LYMPH NODES: No bulky adenopathy. Stable appearing prominent cystic structure for the patient's age the left pelvis 3 x 2.4 cm VASCULAR: Atherosclerotic change. No aneurysmal change PELVIC VISCERA: Otherwise unremarkable. Once again left adnexal structure OSSEOUS STRUCTURES: Unremarkable. CT/CT abdomen pelvis wo con IMPRESSION: This exam is abnormal. Acutely there is a 5 mm calculus in the proximal right ureter causing mild to moderate obstruction of the right There is also felt to be a large cystic area in the right lower quadrant intimately associated with the cecum and I believe this is likely arising from the base of the appendix. Therefore mucocele or mucinous cystadenoma/cystadenocarcinoma of the appendix would be in the differential. Surgical consultation is warranted. Lack of intravenous contrast limits this exam. Consider MRI to further evaluate pre and postcontrast. Fleischner guidelines were followed.
--- NOTE | ~2021-10-24 | US_ITS ---
EXAMINATION: ULTRASOUND ARTERIAL DUPLEX LEFT LOWER EXTREMITY CLINICAL INFORMATION: Decreased pulses COMPARISON: None TECHNIQUE: Doppler color and grayscale evaluation of the arteries of the left lower extremity including waveform spectral analysis FINDINGS: There is evidence for a sclerotic disease. The left common femoral artery is patent. Peak systolic velocity is normal measuring 65 cm/s. There is a normal triphasic waveform. The left profunda is patent. This demonstrates normal peak systolic velocity of 100 cm/s triphasic waveform. There is diffuse atherosclerotic disease of the left superficial femoral artery, greatest in the midportion and distally where there is diffuse wall thickening and luminal narrowing.. Left superficial femoral artery peak systolic velocities measure 43, 57 and 59 cm/s. There is a biphasic waveform. The left popliteal artery is patent. Left popliteal artery peak systolic velocity is 27 cm/s. There is a biphasic waveform. The left posterior tibial artery is patent. Velocity is decreased measuring 14 cm/s. There is a monophasic waveform. US/US arterial duplex LE IMPRESSION: Atherosclerotic disease. Left superficial femoral and posterior tibial disease.
--- NOTE | ~2021-10-24 | CT_ITS ---
EXAMINATION: CT ABDOMEN AND PELVIS WITH CONTRAST CLINICAL INFORMATION: Follow-up CT scan for better defining cecal mass COMPARISON: CT of the abdomen and pelvis done on 10/24/2021. TECHNIQUE: Multidetector volumetric images were obtained from the superior aspect of the liver through the pubic symphysis following administration 85 mL of Omnipaque 350 intravenous contrast. Sagittal and coronal reformatted images were obtained on the technologist's workstation. Oral contrast: No This CT examination was performed using dose optimization techniques as appropriate, variously including the following: *Automated exposure control *Adjustment of mA and/or kV according to patient size (this includes techniques or standardized protocols for targeted exams where dose is matched to indication/reason for exam; i.e. extremities or head) *Use of iterative reconstruction technique DLP: 487 mGy-cm FINDINGS: LUNG BASES: Subcentimeter solitary cystic lesion is noted within the right middle lobe, unchanged. LIVER, GALLBLADDER, AND BILIARY TREE: The liver is normal in size, shape, and attenuation. No focal hepatic lesion or biliary ductal dilatation is present. The gallbladder is surgically absent. PANCREAS: Unremarkable. SPLEEN: Unremarkable. ADRENAL GLANDS: Unremarkable. KIDNEYS AND URETERS: The left kidney is normal in size, shape, and attenuation. No hydronephrosis, hydroureter, or calculi seen. No perinephric stranding. Previously documented 5 mm obstructing radiopaque calculus within the right proximal ureter, producing mild proximal right-sided hydroureteronephrosis appear unchanged. BLADDER: Empty, not evaluated. GASTROINTESTINAL TRACT: Previously suspected cystic lesion in the region of the base of the cecum is is not reproduced in the current study. This is likely related to slight infolding of the cecum protruding posteriorly and giving rise to cystlike appearance, best seen on the sagittal reconstructed images (88:6). The appendix is well-visualized and appear morphologically normal (see the fung images). Specifically, no evidence of any appendiceal mass present. The remainder of the large bowel including the ileocecal junction and the small bowel loops are unremarkable. The stomach is decompressed. ABDOMINAL WALL: No significant hernia is appreciated. LYMPH NODES: Normal. VASCULAR: Diffuse atherosclerotic disease of the aorta and is branches without aneurysm formation. PELVIC VISCERA: There is a left adnexal hypodense, enhancing mass identified (541:4), measures 2.7 x 2.1 cm. The uterus is surgically absent. There is no right-sided adnexal lesion present. OSSEOUS STRUCTURES: No suspicious focal lesion. CT/CT abdomen pelvis w con IMPRESSION: 1. Previously suspected cystic lesion in the region of the base of the cecum is related to slight infolding of the cecum protruding posteriorly and giving rise to a cystlike appearance and not a real lesion. The appendix is well-visualized and appear morphologically normal. Specifically, no evidence of any appendiceal mass/mucocele/cystadenoma/cystadenocarcinoma present. 2. Previously documented 5 mm obstructing radiopaque calculus within the proximal right ureter producing mild proximal right-sided hydroureteronephrosis appear unchanged. 3. Previously documented left adnexal hypodense enhancing mass measuring approximately 2.7 cm is unchanged as well. Fleischner guidelines were followed.
--- NOTE | ~2021-10-24 | XR_ITS ---
EXAMINATION: XR FOOT, LEFT CLINICAL INFORMATION: Heel pain. Discoloration. COMPARISON: Left foot 02/24/2019 TECHNIQUE: AP, lateral, and oblique views of the left foot. FINDINGS: No bone destruction. No abnormal periosteal reaction. No radiographic evidence for osteomyelitis. Bone mineral density is normal. There is a small corticated osseous density adjacent to the lateral side of the distal shaft of the proximal phalange of the fifth toe. This is chronic unchanged since 02/24/2019. No acute fracture or dislocation. XR/XR foot LT min 3V IMPRESSION: No acute abnormality of the foot.
[2021-10-24 14:10] VITALS: BP 194/86; PULSE 88; RESP 16; TEMP 36.6; O2SAT 96; BMI 26.2
[2021-10-24 14:32] LABS: MANUAL DIFF FLAG NO
[2021-10-24 14:34] LABS: Basophils Percent Auto 0.4 % (0-2); Eosinophils Absolute Auto 0.1 X10*3/uL (0.0-0.4); Eosinophils Percent Auto 1.3 % (0-4); Hematocrit 46.6 % (37.0-47.0); Hemoglobin 15.5 g/dl (12.0-16.0); Imm Gran Abs Auto 0.04 X10*3/uL (0.00-0.03); Imm Gran Pct Auto 0.4 % (0.0-0.4); Lymphocytes Absolute Auto 2.7 X10*3/uL (1.2-4.9); Lymphocytes Percent Auto 29.2 % (20-40); Mean Corpuscular HGB Conc 33.3 g/dl (31.0-35.0); Mean Corpuscular Hemoglobin 28.8 pg (27.0-33.0); Mean Corpuscular Volume 86.6 fL (80.0-98.0); Mean Platelet Volume 10.3 fL (9.4-12.3); Monocytes Absolute Auto 0.7 X10*3/uL (0.1-1.2); Monocytes Percent Auto 7.2 % (2-11); Neutrophils Absolute Auto 5.6 x10*3/uL (2.0-8.3); Neutrophils Percent Auto 61.5 % (45-73); Platelet Count 288 X10*3/uL (160-400); Red Blood Count 5.38 X10*6/uL (4.20-5.50); Red Cell Distribution Width 14.1 % (11.0-16.0); White Blood Count 9.1 X10*3/uL (4.8-10.8)
[2021-10-24 14:37] LABS: Appearance Urine CLEAR; Color Urine YELLOW; Glucose Urine UA 500 MG/DL (NEG); Leukocyte Esterase Urine NEG (NEG); Nitrite Urine NEG (NEG); PH 5.5 (5.0-8.0); Specific Gravity - Urine >= 1.030 (1.005-1.025); UACC Culture Trigger NO; Urine Blood 1+ (NEG); Urine Ketones NEG (NEG); Urine Protein NEG (NEG-TRACE)
[2021-10-24 14:48] LABS: Partial Thromboplastin Time 31.6 SEC (24.1-38.0)
[2021-10-24 14:49] LABS: Anion Gap 10 (12-20); Blood Urea Nitrogen 15 mg/dL (9-16); Calcium 10.3 mg/dL (8.4-10.2); Carbon Dioxide 23 mmol/L (22-29); Chloride 107 mmol/L (96-108); Creatinine Clr Calc Pharmacy 68.8; Estimated Glomerular Filt Rate > 60; Glucose Random 241 mg/dL (60-115); Potassium 4.4 mmol/L (3.3-5.1); Sodium 136 mmol/L (135-145)
[2021-10-24 15:00] LABS: Calcium Oxalate Crystals Urine 1+ /LPF; Squamous Epithelial Cell Urine TRACE /LPF
[2021-10-24 15:01] LABS: Bacteria Urine TRACE /LPF
--- NOTE | 2021-10-24 18:16 | ED_ITS ---
HPI - General Adult General Chief complaint: General Medical Stated complaint: loose stools x2days Time Seen by Provider: 10/24/21 17:57 Source: patient Mode of arrival: ambulatory History of Present Illness HPI narrative: 66-year-old female with a past medical history of CVA on Plavix, HLD, HTN, hypothyroid, myasthenia gravis, pernicious anemia, diabetes, presenting to the ED complaining of left heel blister/ discoloration and pain now radiating up LLE x months worsening of the past 2 weeks. Also reports bright blood blood per rectum and hematuria yesterday. Reports abdomen makes weird noises. Denies fever, chills, vomiting, diarrhea, constipation, dysuria, flank pain, lightheadedness Admits was seen at urgent care 2 weeks ago had negative venous duplex ultrasound for DVT. Onset (ago): week(s) Related Data Home Medications Medication Instructions Recorded Confirmed vitamin B complex (B 1 tab PO DAILY 05/14/20 10/24/21 Complex-Vitamin B12) potassium citrate 10 mEq (1,080 10 meq PO BID 07/05/20 10/24/21 mg) tablet,extended release mycophenolate mofetil 500 mg tablet 1,000 mg PO TID 02/28/21 10/24/21 levothyroxine 125 mcg tablet 1 tab PO DAILY 10/24/21 pyridostigmine bromide 180 mg 180 mg PO TID 10/24/21 10/24/21 tablet,extended release rosuvastatin 40 mg tablet 40 mg PO DAILY 10/24/21 10/24/21 Previous Rx's Medication Instructions Recorded clopidogrel 75 mg tablet 75 mg PO DAILY #60 tab 11/08/20 walker #1 ea 11/21/20 simethicone 180 mg capsule 180 mg PO QID 30 Days #120 cap 01/14/21 pen needle, diabetic 32 gauge x #50 ea 03/29/21 (BD Ultra-Fine Marilee Pen Needle) dicyclomine 20 mg tablet 20 mg PO QID 30 Days #120 tab 06/18/21 [id number] 1 cap PO QID 30 Days #120 cap 07/08/21 24,000-76,000-120,000 unit capsule,delayed rel (Creon) pantoprazole 40 mg tablet,delayed 40 mg PO DAILY 30 Days #30 tab 07/08/21 release (Protonix) atorvastatin 80 mg tablet 80 mg PO DAILY 30 Days #30 tab 07/17/21 metformin 1,000 mg tablet 1,000 mg PO BID 90 Days #180 tab 07/17/21 amlodipine 5 mg tablet 5 mg PO DAILY #90 tab 09/02/21 hydrochlorothiazide 25 mg tablet 25 mg PO DAILY #90 tab 09/02/21 ramipril 10 mg capsule 10 mg PO BID #90 cap 09/02/21 blood sugar diagnostic (FreeStyle #100 ea 09/09/21 Lite Strips) blood-glucose meter (FreeStyle #1 ea 09/09/21 Lite Meter) dulaglutide 1.5 mg/0.5 mL 1.5 mg (0.5 mL) SUBCUT QWEEK 30 09/09/21 subcutaneous pen injector Days #2.5 ml (Trulicity) insulin glargine 100 unit/mL (3 10 unit (0.1 mL) SUBCUT QPM #15 ml 09/09/21 mL) subcutaneous pen (Lantus Solostar U-100 Insulin) lancets 28 gauge (FreeStyle #100 ea 09/09/21 Lancets) mupirocin 2 % topical ointment 1 appl TOPICAL BID #22 g 10/10/21 Allergies Allergy/AdvReac Type Severity Reaction Status Date / Time Penicillins [PCN] Allergy Unknown RASH Verified 10/24/21 11:30 gabapentin AdvReac Unknown Dizziness Verified 10/24/21 11:30 Review of Systems Review of Systems: Constitutional: No Fever, No Chills, No Fatigue, No Malaise ENT/Mouth: No Ear Pain, No Nasal Congestion, No sore throat, No Rhinorrhea, No Swallowing Difficulty Eyes: No Eye Pain, No Swelling, No Redness Cardiovascular: No Chest Pain, No SOB, No Edema, No Palpitations Respiratory: No Cough, No Sputum,No Dyspnea Gastrointestinal: + Nausea, No Vomiting, No Diarrhea, No Constipation, No Abdominal pain, +brbpr, No Melena Genitourinary: No irregular bleeding, No Dysuria, No Urinary Frequency, + Hematu zeyad, No Urinary Incontinence/retention, No Flank Pain Musculoskeletal: No joint pain, No Myalgias, No Joint Swelling Skin: + Skin Lesions, No rash Neuro: No Weakness, No Numbness, No Dizziness, No Headache Yes all other systems are reviewed and are negative PMFSH Past Medical History Attestation statement: The following information was validated with the patient. Medical History Chronic low back pain Colitis without complication COVID-19 vaccine series declined Dizziness, nonspecific History of CVA (cerebrovascular accident) (~10/2020) History of kidney stones HLD (hyperlipidemia) HTN (hypertension) Hypercalcemia Hypothyroidism Kidney calculi Microalbuminuria Multinodular thyroid Myasthenia gravis Myasthenia gravis Pain of plantar aspect of heel Pernicious anemia Personal history of nicotine dependence T2DM (type 2 diabetes mellitus) Tubular adenoma of colon Ureteral stone with hydronephrosis Urge urinary incontinence Vitamin D deficiency Surgical History History of bilateral cataract extraction (~2019) History of colonoscopy History of esophagogastroduodenoscopy (EGD) History of hernia repair History of hysterectomy (~1984) History of lithotripsy (~2013) History of parathyroidectomy Status post biopsy of thyroid gland (~2021) Family History Family History Father Lung cancer Mother Asthma Diabetes HTN (hypertension) Heart attack Sister FH: mental illness Leukemia Mental health disorder Social History Social History Household Members: None Alcohol intake: current Alcohol intake frequency: does not drink Patient Tobacco Use Status: Current someday Tobacco user Tobacco use type: Cigarette Cigarettes Per Day: 1 Years Smoked: 45 +/- Advance Directives: Yes Advance Directives Information Provided: Yes Advance Directives on File: No Current occupational status: disabled Physical Exam ED Vital Signs: Vital Signs - 24 hr 10/24/21 14:10 10/24/21 19:43 Temperature 97.9 F 98 F Pulse Rate 88 80 Respiratory Rate 16 16 Blood Pressure 194/86 H 137/78 Pulse Oximetry 96 96 BMI result Body Mass Index 26.2 Const General: cooperative, healthy appearing and no acute distress Orientation/consciousness: patient oriented x3 Limitations: no limitations HENMT Head: Yes normal to inspection and Yes atraumatic Ears: hearing grossly normal bilaterally General nose exam: Normal external nose present Face and sinus: Yes normal facial exam Eyes General: appearance normal, both eyes and all related structures EOM: EOMs intact bilaterally Neck Neck: Yes normal visual inspection and Yes no meningeal signs Resp Effort & Inspection: normal respiratory effort and no respiratory distress Auscultation: clear to auscultation bilaterally Cardio Rate: regular rate Heart sounds: S1 normal heart sound present and S2 normal heart sound present GI Inspection: Yes normal to inspection Palpation (GI): Soft to palpation, Tenderness to palpation present (GI) in the epigastrum, no guarding and not rigid Rectal Exam - Female: External hemorrhoid(s) present ( not thrombosed) General: Yes no CVA tenderness Back/Spine/Pelvis Back: no CVA tenderness Skin Wounds: no wounds Neuro General: patient oriented x3, tone normal and no meningeal signs Gait exam (Neuro): Normal gait present Extrem Other: please refer to images above. Left heel with noted cracking, dry ulcer to medial aspect and purplish discoloration. Diffusely tender. No fluctuance or induration. Pulses faint. No edema Course Course Course Narrative: -2041-- no leukocytosis. Lipase elevated at 755. Labs otherwise unremarkable. - UA not infected, 1+ blood. Occult stool negative XR foot LT min 3V IMPRESSION: No acute abnormality of the foot. CT abdomen pelvis wo con IMPRESSION: This exam is abnormal. ? Acutely there is a 5 mm calculus in the proximal right ureter causing mild to moderate obstruction of the right ? There is also felt to be a large cystic area in the right lower quadrant intimately associated with the cecum and I believe this is likely arising from the base of the appendix. Therefore mucocele or mucinous cystadenoma/cystadenocarcinoma of the appendix would be in the differential. Surgical consultation is warranted. Lack of intravenous contrast limits this exam. Consider MRI to further evaluate pre and postcontrast. Fleischner guidelines were followed. >> urology consulted. Plan to admit to hospitalist for further management US arterial duplex LE LT IMPRESSION: Atherosclerotic disease. Left superficial femoral and posterior tibial disease. Medical Decision Making MDM Narrative Medical decision making narrative: 66-year-old female with a past medical history of CVA on Plavix, HLD, HTN, hypothyroid, myasthenia gravis, pernicious anemia, diabetes, presenting to the ED complaining of left heel blister/ discoloration and pain now radiating up LLE x months worsening of the past 2 weeks. Also reports bright blood blood per rectum and hematuria yesterday. on exam vital signs stable, NAD, nontoxic, Abdomen soft with epigastric tenderness to palpation, no rebound or guarding.physical exam as above. Concern for GI bleed vs hemorrhoidal bleeding vs UTI or renal stone vs Pancreatitis. Please refer did images of foot, concern for vascular deficiency vs subacute fracture/injury. Low concern for DVT, does not appear cellulitic plan: Labs, UA, occult stool, arterial duplex, CT abdomen /pelvis Medical Records Medical records reviewed: Yes I reviewed the patient's medical records. Lab Data Lab results reviewed: Yes I reviewed the patient's lab results. Result diagrams: 10/24/21 14:25 10/24/21 14:25 Labs: Lab Results 10/24/21 10/24/21 10/24/21 Range/Units 14:22 14:25 14:25 WBC 9.1 (4.8-10.8) X10*3/uL RBC 5.38 (4.20-5.50) X10*6/uL Hgb 15.5 (12.0-16.0) g/dl Hct 46.6 (37.0-47.0) % MCV 86.6 (80.0-98.0) fL MCH 28.8 (27.0-33.0) pg MCHC 33.3 (31.0-35.0) g/dl RDW 14.1 (11.0-16.0) % Plt Count 288 (160-400) X10*3/uL MPV 10.3 (9.4-12.3) fL Immature Gran % (Auto) 0.4 (0.0-0.4) % Neut % (Auto) 61.5 (45-73) % Lymph % (Auto) 29.2 (20-40) % [place] % (Auto) 7.2 (2-11) % Eos % (Auto) 1.3 (0-4) % Baso % (Auto) 0.4 (0-2) % Lymph # (Auto) 2.7 (1.2-4.9) X10*3/uL [place] # (Auto) 0.7 (0.1-1.2) X10*3/uL Eos # (Auto) 0.1 (0.0-0.4) X10*3/uL Baso # (Auto) 0.0 (0.0-0.2) X10*3/uL Abs Immat Gran (auto) 0.04 H (0.00-0.03) X10*3/uL Absolute Neuts (auto) 5.6 (2.0-8.3) x10*3/uL Absolute Nucleated RBC 0.000 (0.0-0.012) X10*3/uL Nucleated RBC % (auto) 0.0 (0.0-0.2) /100WBC PT 11.0 (9.9-13.0) SEC INR 1.0 (0.9-1.1) APTT 31.6 (24.1-38.0) SEC Sodium (135-145) mmol/L Potassium (3.3-5.1) mmol/L Chloride (96-108) mmol/L Carbon Dioxide (22-29) mmol/L Anion Gap (12-20) BUN (9-16) mg/dL Creatinine (0.5-1.4) mg/dL Estim Creat Clear Calc Estimated GFR Random Glucose (60-115) mg/dL Calcium (8.4-10.2) mg/dL Magnesium (1.6-2.6) mg/dL Total Bilirubin (0.0-1.0) mg/dL Direct Bilirubin (0.0-0.5) mg/dL AST (5-31) U/L ALT (0-31) U/L Alkaline Phosphatase (39-117) U/L Total Protein (6.5-8.0) g/dL Albumin (3.5-5.0) g/dL Lipase (8-78) U/L Urine Color YELLOW Urine Appearance CLEAR Urine pH 5.5 (5.0-8.0) Ur Specific [place] >= 1.030 H (1.005-1.025) Urine Protein NEG (NEG-TRACE) MG/DL Urine Glucose (UA) 500 H (NEG) MG/DL Urine Ketones NEG (NEG) MG/DL Urine Blood 1+ H (NEG) Urine Nitrite NEG (NEG) Ur Leukocyte Esterase NEG (NEG) Urine RBC 1-4 (0) /HPF Urine WBC 1-4 (0-4) /HPF Ur Squamous Epith Cells TRACE /LPF Calcium Oxalate Crystal 1+ /LPF Urine Bacteria TRACE /LPF Stool Occult Blood (NEGATIVE) COVID-19 (GAVIN) (Negative) COVID-19 Clin Com 10/24/21 10/24/21 10/24/21 Range/Units 14:25 19:45 21:10 WBC (4.8-10.8) X10*3/uL RBC (4.20-5.50) X10*6/uL Hgb (12.0-16.0) g/dl Hct (37.0-47.0) % MCV (80.0-98.0) fL MCH (27.0-33.0) pg MCHC (31.0-35.0) g/dl RDW (11.0-16.0) % Plt Count (160-400) X10*3/uL MPV (9.4-12.3) fL Immature Gran % (Auto) (0.0-0.4) % Neut % (Auto) (45-73) % Lymph % (Auto) (20-40) % [place] % (Auto) (2-11) % Eos % (Auto) (0-4) % Baso % (Auto) (0-2) % Lymph # (Auto) (1.2-4.9) X10*3/uL [place] # (Auto) (0.1-1.2) X10*3/uL Eos # (Auto) (0.0-0.4) X10*3/uL Baso # (Auto) (0.0-0.2) X10*3/uL Abs Immat Gran (auto) (0.00-0.03) X10*3/uL Absolute Neuts (auto) (2.0-8.3) x10*3/uL Absolute Nucleated RBC (0.0-0.012) X10*3/uL Nucleated RBC % (auto) (0.0-0.2) /100WBC PT (9.9-13.0) SEC INR (0.9-1.1) APTT (24.1-38.0) SEC Sodium 136 (135-145) mmol/L Potassium 4.4 (3.3-5.1) mmol/L Chloride 107 (96-108) mmol/L Carbon Dioxide 23 (22-29) mmol/L Anion Gap 10 L (12-20) BUN 15 (9-16) mg/dL Creatinine 0.75 (0.5-1.4) mg/dL Estim Creat Clear Calc 68.8 Estimated GFR > 60 Random Glucose 241 H (60-115) mg/dL Calcium 10.3 H D (8.4-10.2) mg/dL Magnesium 1.8 (1.6-2.6) mg/dL Total Bilirubin 0.4 (0.0-1.0) mg/dL Direct Bilirubin 0.2 (0.0-0.5) mg/dL AST 15 (5-31) U/L ALT 21 (0-31) U/L Alkaline Phosphatase 99 (39-117) U/L Total Protein 7.2 (6.5-8.0) g/dL Albumin 4.3 (3.5-5.0) g/dL Lipase 755 H (8-78) U/L Urine Color Urine Appearance Urine pH (5.0-8.0) Ur Specific [place] (1.005-1.025) Urine Protein (NEG-TRACE) MG/DL Urine Glucose (UA) (NEG) MG/DL Urine Ketones (NEG) MG/DL Urine Blood (NEG) Urine Nitrite (NEG) Ur Leukocyte Esterase (NEG) Urine RBC (0) /HPF Urine WBC (0-4) /HPF Ur Squamous Epith Cells /LPF Calcium Oxalate Crystal /LPF Urine Bacteria /LPF Stool Occult Blood NEGATIVE (NEGATIVE) COVID-19 (GAVIN) Negative (Negative) COVID-19 Clin Com See Note Discharge Plan Discharge Clinical Impression: Acute pancreatitis, Atherosclerotic peripheral vascular disease, Calculus of proximal right ureter, Mass of appendix Patient Disposition: Admitted As Inpatient Prescriptions: No Action (DME) walker [facility] See Rx Instructions .ROUTE .MEDSUPPLY Qty: 1 0RF Rx Instructions: walker with seat and hand brakes (DME) pen needle, diabetic [BD Ultra-Fine Marilee Pen Needle] 32 gauge x 5/32 needle See Rx Instructions .ROUTE .MEDSUPPLY Qty: 50 10RF Rx Instructions: As directed once daily dicyclomine 20 mg tablet 20 mg PO QID 30 Days Qty: 120 3RF levothyroxine 125 mcg tablet 1 tab PO DAILY 0RF mycophenolate mofetil 500 mg tablet 1,000 mg PO TID 0RF mupirocin 2 % ointment 1 appl topical BID Qty: 22 0RF vitamin B complex [B Complex-Vitamin B12] Tablet 1 tab PO DAILY 0RF potassium citrate 10 mEq (1,080 mg) tablet extended release 10 meq PO BID 0RF clopidogrel 75 mg tablet 75 mg PO DAILY Qty: 60 3RF simethicone 180 mg capsule 180 mg PO QID 30 Days Qty: 120 6RF Rx Instructions: after meals Lantus Solostar U-100 Insulin 100 unit/mL (3 mL) insulin pen 10 unit subcut QPM Qty: 15 2RF (DME) FreeStyle Lite Strips Strip See Rx Instructions .ROUTE .MEDSUPPLY Qty: 100 11RF Rx Instructions: 4x daily (DME) blood-glucose meter [FreeStyle Lite Meter] Kit See Rx Instructions .Route Qty: 1 0RF Rx Instructions: As directed (DME) lancets [FreeStyle Lancets] 28 gauge misc See Rx Instructions .ROUTE .MEDSUPPLY Qty: 100 11RF Rx Instructions: 4x daily Trulicity 1.5 mg/0.5 mL pen injector 1.5 mg subcut QWEEK 30 Days Qty: 2.5 11RF atorvastatin 80 mg tablet 80 mg PO DAILY 30 Days Qty: 30 11RF metformin 1,000 mg tablet 1,000 mg PO BID 90 Days Qty: 180 11RF pantoprazole [Protonix] 40 mg tablet,delayed release (DR/EC) 40 mg PO DAILY 30 Days Qty: 30 3RF Creon 24,000-76,000 -120,000 unit capsule,delayed release(DR/EC) 1 cap PO QID 30 Days Qty: 120 6RF Rx Instructions: administer with meals and/or snacks ramipril 10 mg capsule 10 mg PO BID Qty: 90 3RF amlodipine 5 mg tablet 5 mg PO DAILY Qty: 90 3RF hydrochlorothiazide 25 mg tablet 25 mg PO DAILY Qty: 90 3RF pyridostigmine bromide 180 mg tablet extended release 180 mg PO TID 0RF rosuvastatin 40 mg tablet 40 mg PO DAILY 0RF
[2021-10-24 18:19] LABS: Alanine Aminotransferase 21 U/L (0-31); Albumin Level 4.3 g/dL (3.5-5.0); Alkaline Phosphatase 99 U/L (39-117); Aspartate Amino Transferase 15 U/L (5-31); Bilirubin Direct 0.2 mg/dL (0.0-0.5); Bilirubin Total 0.4 mg/dL (0.0-1.0); Lipase 755 U/L (8-78); Magnesium 1.8 mg/dL (1.6-2.6); Total Protein 7.2 g/dL (6.5-8.0)
[2021-10-24 19:43] VITALS: BP 137/78; PULSE 80; RESP 16; TEMP 36.6; O2SAT 96
[2021-10-24 19:54] LABS: OBS1 NEGATIVE (NEGATIVE)
[2021-10-24 19:55] LABS: OBS Int Ctl Valid YES
[2021-10-24] MEDS: 0.9 % Sodium Chloride 1,000 ML 999 ML IV (21:08)
[2021-10-24 21:31] LABS: COVID-19 Test Negative (Negative); IDNOW Serial# 08D9AD1C
--- NOTE | 2021-10-24 22:05 | PHA.MEDREC ---
Addendum entered by Chip Mane, [facility] 10/24/21 22:05: Patient states she doesnt take her creon even though she should and confirms still taking plavix Original Note: Pharmacy Consult ? Medication Reconciliation Pharmacy has completed the medication reconciliation.
--- NOTE | 2021-10-24 22:56 | P.HPHOSP_ITS ---
History of Present Illness Date of Service: 10/24/21 Chief Complaint: Heel pain 70-year-old female with a past medical history of hypertension, hyperlipidemia, hypothyroidism, hypercalcemia, myasthenia gravis, pernicious anemia, diabetes, history of ureteral stone with hydronephrosis, vitamin-D deficiency, chronic low back pain, history of CVA presented to the hospital with a chief complaint of heel pain. Patient reported that she has been having mild redness on her heel which gradually increased and covering the whole heel, pain radiating up to the legs; denies any erythema in the leg. Denies any fevers at home. Also mentioned that she has been having diarrhea for the past 1 week-loose watery initially and had an episode of blood in the stool yesterday. Reports she has history of hemorrhoids. Also complains of a diffuse abdominal pain associated nausea; denies any chest pain or palpitations. Reports she has decreased appetite and has lost 5 lb in past 2-3 weeks. Denies any numbness tingling or focal weakness. Denies any urinary symptoms. Patient reports she had 1 episode of hematuria today. 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; lipase was elevated on labs; admitted to the hospital for further management [facility] Medical History Chronic low back pain Colitis without complication COVID-19 vaccine series declined Dizziness, nonspecific History of CVA (cerebrovascular accident) (~10/2020) History of kidney stones HLD (hyperlipidemia) HTN (hypertension) Hypercalcemia Hypothyroidism Kidney calculi Microalbuminuria Multinodular thyroid Myasthenia gravis Myasthenia gravis Pain of plantar aspect of heel Pernicious anemia Personal history of nicotine dependence T2DM (type 2 diabetes mellitus) Tubular adenoma of colon Ureteral stone with hydronephrosis Urge urinary incontinence Vitamin D deficiency Family History Father Lung cancer Mother Asthma Diabetes HTN (hypertension) Heart attack Sister FH: mental illness Leukemia Mental health disorder Surgical History History of bilateral cataract extraction (~2019) History of colonoscopy History of esophagogastroduodenoscopy (EGD) History of hernia repair History of hysterectomy (~1984) History of lithotripsy (~2013) History of parathyroidectomy Status post biopsy of thyroid gland (~2021) Social History Household Members: None Alcohol intake: current Alcohol intake frequency: does not drink Patient Tobacco Use Status: Current someday Tobacco user Tobacco use type: Cigarette Cigarettes Per Day: 1 Years Smoked: 45 +/- Advance Directives: Yes Advance Directives Information Provided: Yes Advance Directives on File: No Current occupational status: disabled Meds Allergies Allergy/AdvReac Type Severity Reaction Status Date / Time Penicillins [PCN] Allergy Unknown RASH Verified 10/24/21 11:30 gabapentin AdvReac Unknown Dizziness Verified 10/24/21 11:30 Active Medications: Current Medications Amlodipine Besylate (Amlodipine Besylate 5 Mg Tablet) 5 mg PO DAILY [facility]; Protocol Atorvastatin Calcium (Atorvastatin Calcium 80 Mg Tablet) 80 mg PO BEDTIME [facility] Dextrose (Dextrose 50 % 25 Gm/50 Ml Syringe) 25 gm IVPUSH Q15M PRN; Protocol PRN Reason: per Hypoglycemia Standing Ord. Dicyclomine HCl (Dicyclomine Hcl 10 Mg Capsule) 20 mg PO QID [facility] Glucose (Glucose Gel 15 Gm Gel..Gram.) 15 gm PO Q15M PRN; Protocol PRN Reason: per Hypoglycemia Standing Ord. Insulin Glargine (Insulin Glargine,Hum.Rec.Anlog 100 Unit/Ml 10 Ml Vial) 12 unit SUBCUT QPM [facility] Insulin Human Lispro (Insulin Lispro 100 Unit/Ml 3 Ml Vial) 0 unit SUBCUT QIDACHS [facility]; Protocol Levothyroxine Sodium (Levothyroxine Sodium 125 Mcg Tablet) 125 mcg PO DAILY@0600 [facility] Metformin HCl (Metformin Hcl 1,000 Mg Tablet) 1,000 mg PO BID [facility] Mupirocin (Mupirocin 1 Gm Oint...G.) gm TOPICAL BID [facility] Non-Formulary Medication (Mycophenolate Mofetil) 1,000 mg PO TID [facility] Non-Formulary Medication (Pantoprazole [Protonix]) 40 mg PO DAILY [facility] Non-Formulary Medication (Pyridostigmine [place]) 180 mg PO QID [facility] Non-Formulary Medication (Rosuvastatin) 40 mg PO DAILY [facility] Pharmacy Consult (Consult Rx Perform Med Rec) 1 each MISCELLANE ONCE PRN PRN Reason: Consult order Home Medications Medication Instructions Recorded Confirmed Last Taken Type mycophenolate mofetil 500 mg tablet 1,000 mg PO TID 02/28/21 10/24/21 10/24/21 History dulaglutide 1.5 mg/0.5 mL 1.5 mg SUBCUT MO 10/24/21 10/24/21 10/21/21 History subcutaneous pen injector (Trulicity) insulin glargine 100 unit/mL (3 12 unit SUBCUT QPM 10/24/21 10/24/21 10/23/21 History mL) subcutaneous pen (Lantus Solostar U-100 Insulin) levothyroxine 125 mcg tablet 1 tab PO DAILY 10/24/21 10/24/21 10/23/21 History pyridostigmine bromide 180 mg 180 mg PO QID 10/24/21 10/24/21 10/24/21 History tablet,extended release rosuvastatin 40 mg tablet 40 mg PO DAILY 10/24/21 10/24/21 10/23/21 History Physical Exam Vital Signs and Narrative: Vital Signs: Last Vital Signs Temp 98 F 10/24/21 19:43 Pulse 80 10/24/21 19:43 Resp 16 10/24/21 19:43 BP 137/78 10/24/21 19:43 Pulse Ox 96 10/24/21 19:43 BMI result Body Mass Index 26.2 Gen: Appears be in no acute distress HEENT: NCAT, Moist mucosa. Pulmonary: Vesicular breath sounds, fair air entry CVS: Normal S1-S2 Abdomen: BS+, Soft, mildly tender diffusely Extremities: Warm well perfused; right heel noted to be erythematous, tender; no evidence of open wound or discharge. Neuro: Alert and awake. Grossly nonfocal Results Labs CBC and Chem 7: 10/24/21 14:25 10/24/21 14:25 Labs: Laboratory Results - last 24 hr 10/24/21 10/24/21 10/24/21 14:22 14:25 14:25 MCV 86.6 MCH 28.8 MCHC 33.3 RDW 14.1 Plt Count 288 MPV 10.3 Immature Gran % (Auto) 0.4 Neut % (Auto) 61.5 Lymph % (Auto) 29.2 Mitchell % (Auto) 7.2 Eos % (Auto) 1.3 Baso % (Auto) 0.4 Lymph # (Auto) 2.7 Mitchell # (Auto) 0.7 Eos # (Auto) 0.1 Baso # (Auto) 0.0 Abs Immat Gran (auto) 0.04 H Absolute Neuts (auto) 5.6 Absolute Nucleated RBC 0.000 Nucleated RBC % (auto) 0.0 PT 11.0 INR 1.0 APTT 31.6 Anion Gap Estim Creat Clear Calc Estimated GFR Random Glucose Calcium Magnesium Total Bilirubin Direct Bilirubin AST ALT Alkaline Phosphatase Total Protein Albumin Lipase Urine Color YELLOW Urine Appearance CLEAR Urine pH 5.5 Ur Specific [place] >= 1.030 H Urine Protein NEG Urine Glucose (UA) 500 H Urine Ketones NEG Urine Blood 1+ H Urine Nitrite NEG Ur Leukocyte Esterase NEG Urine RBC 1-4 Urine WBC 1-4 Ur Squamous Epith Cells TRACE Calcium Oxalate Crystal 1+ Urine Bacteria TRACE Stool Occult Blood COVID-19 (GAVIN) COVID-19 ironSource Com 10/24/21 10/24/21 10/24/21 14:25 19:45 21:10 MCV MCH MCHC RDW Plt Count MPV Immature Gran % (Auto) Neut % (Auto) Lymph % (Auto) Mitchell % (Auto) Eos % (Auto) Baso % (Auto) Lymph # (Auto) Mitchell # (Auto) Eos # (Auto) Baso # (Auto) Abs Immat Gran (auto) Absolute Neuts (auto) Absolute Nucleated RBC Nucleated RBC % (auto) PT INR APTT Anion Gap 10 L Estim Creat Clear Calc 68.8 Estimated GFR > 60 Random Glucose 241 H Calcium 10.3 H D Magnesium 1.8 Total Bilirubin 0.4 Direct Bilirubin 0.2 AST 15 ALT 21 Alkaline Phosphatase 99 Total Protein 7.2 Albumin 4.3 Lipase 755 H Urine Color Urine Appearance Urine pH Ur Specific [place] Urine Protein Urine Glucose (UA) Urine Ketones Urine Blood Urine Nitrite Ur Leukocyte Esterase Urine RBC Urine WBC Ur Squamous Epith Cells Calcium Oxalate Crystal Urine Bacteria Stool Occult Blood NEGATIVE COVID-19 (GAVIN) Negative COVID-19 Clin Com See Note Imaging Radiologist's Impressions: Impressions Foot X-Ray 10/24/21 18:30 IMPRESSION: No acute abnormality of the foot. Abdomen/Pelvis CT 10/24/21 19:08 IMPRESSION: This exam is abnormal. Acutely there is a 5 mm calculus in the proximal right ureter causing mild to moderate obstruction of the right There is also felt to be a large cystic area in the right lower quadrant intimately associated with the cecum and I believe this is likely arising from the base of the appendix. Therefore mucocele or mucinous cystadenoma/cystadenocarcinoma of the appendix would be in the differential. Surgical consultation is warranted. Lack of intravenous contrast limits this exam. Consider MRI to further evaluate pre and postcontrast. Fleischner guidelines were followed. Duplex Scan Lower Extremity Artery 10/24/21 19:34 IMPRESSION: Atherosclerotic disease. Left superficial femoral and posterior tibial disease. Assessment and Plan Plan 70-year-old female with a past medical history of hypertension, hyperlipidemia, hypothyroidism, hypercalcemia, myasthenia gravis, pernicious anemia, diabetes, history of ureteral stone with hydronephrosis, vitamin-D deficiency, chronic low back pain, history of CVA presented to the hospital with a chief complaint of heel pain. Abdominal pain: Question pancreatitis : Lipase elevated to 755 Bright red blood per rectum: Stool guaiac was negative for ER team Patient reports history of hemorrhoids Patient reports she has been having diarrhea for the past 1 week and had blood in the stool yesterday Will obtain stool studies NPO Gentle IV fluids Pain control Gastroenterology consult Largest cystic abdominal mass: Concern for question cystadenocarcinoma. Hematology-Oncology consult for further recommendations Right ureteral obstructing calculus: Patient had mild hematuria. Pain control. No evidence of UTI. Urology consult was notified. HEEL erythema: Patient is afebrile and no leukocytosis. Will hold of antibiotics for now. Ultrasound showed vascular insufficiency. Vascular surgery consult History of hypertension/hyperlipidemia: Continue home statin, amlodipine. Hold home hydrochlorothiazide, lisinopril History of myasthenia gravis: Continue home fibrosis Ortiz, mycophenolate History of diabetes: Insulin sliding scale History of hypothyroidism: Continue home levothyroxine DVT prophylaxis: SCD boots Code status: DNR/DNI. Discussed in detail with the patient. Patient wanted to be DNR/DNI. Quality Stroke Does the patient have a stroke diagnosis?: No VTE Prior VTE?: No VTE Risk Level:: Medical - moderate - high VTE Device Contraindication: N/A - Device Ordered VTE Drug Contraindication: Treatment Not Indicated
[2021-10-25] MEDS: 0.9 % Sodium Chloride 1,000 ML 50 ML IVCONT
[2021-10-25 00:03] VITALS: BP 155/91; PULSE 77; RESP 14; O2SAT 97
[2021-10-25 00:41] LABS: Glucose, Whole Blood 247 mg/dL (60-115)
[2021-10-25] MEDS: Insulin Glargine,Hum.rec.anlog 100 UNIT/ML 10 ML VIAL 12 UNIT SUBCUT (01:54)
[2021-10-25] MEDS: Insulin Lispro 100 UNIT/ML 3 ML VIAL SUBCUT (01:54)
[2021-10-25 02:18] VITALS: BP 146/69; PULSE 65; RESP 16; O2SAT 98
[2021-10-25] MEDS: Levothyroxine Sodium 125 MCG TABLET PO (06:22)
[2021-10-25 06:47] LABS: MANUAL DIFF FLAG NO
[2021-10-25 06:52] LABS: Basophils Percent Auto 0.5 % (0-2); Eosinophils Absolute Auto 0.2 X10*3/uL (0.0-0.4); Eosinophils Percent Auto 2.6 % (0-4); Hematocrit 43.5 % (37.0-47.0); Hemoglobin 14.6 g/dl (12.0-16.0); Imm Gran Abs Auto 0.03 X10*3/uL (0.00-0.03); Imm Gran Pct Auto 0.4 % (0.0-0.4); Lymphocytes Percent Auto 36.1 % (20-40); Mean Corpuscular HGB Conc 33.6 g/dl (31.0-35.0); Mean Corpuscular Hemoglobin 29.6 pg (27.0-33.0); Mean Corpuscular Volume 88.1 fL (80.0-98.0); Mean Platelet Volume 10.8 fL (9.4-12.3); Monocytes Absolute Auto 0.8 X10*3/uL (0.1-1.2); Monocytes Percent Auto 10.1 % (2-11); Neutrophils Absolute Auto 4.2 x10*3/uL (2.0-8.3); Neutrophils Percent Auto 50.3 % (45-73); Platelet Count 288 X10*3/uL (160-400); Red Blood Count 4.94 X10*6/uL (4.20-5.50); Red Cell Distribution Width 14.4 % (11.0-16.0); White Blood Count 8.3 X10*3/uL (4.8-10.8)
[2021-10-25 07:09] VITALS: BP 131/72; PULSE 66; RESP 16; O2SAT 99
[2021-10-25 07:16] LABS: Glucose, Whole Blood 126 mg/dL (60-115)
[2021-10-25 07:29] LABS: Anion Gap 9 (12-20); Blood Urea Nitrogen 17 mg/dL (9-16); Calcium 9.8 mg/dL (8.4-10.2); Carbon Dioxide 22 mmol/L (22-29); Chloride 111 mmol/L (96-108); Creatinine Clr Calc Pharmacy 74.8; Estimated Glomerular Filt Rate > 60; Glucose Random 131 mg/dL (60-115); Potassium 4.2 mmol/L (3.3-5.1); Sodium 138 mmol/L (135-145)
--- NOTE | 2021-10-25 07:37 | PC.NURSE ---
pt alert and oriented, skin appropriate for ethnicity, respirations even and unlabored, pt reports abd burning and nausea but unable to give this rn a number for the pain in the abd just keeps saying that is just feeling uncomfortable. pt also reports left foot pain, the heel and sides of the foot are red in color no open wounds at this time
--- NOTE | 2021-10-25 07:37 | PM.GICN ---
History of Present Illness Data of Consult Service Date: 10/25/21 Requesting physician: Jean-Pierre Rapp Primary Care Provider: Unknown Physician HPI Reason for consult: Pancreatitis, abnormal abdominal CT scan, rectal bleeding 66-year-old female with a past medical history of hypertension, hyperlipidemia, hypothyroidism, hypercalcemia, myasthenia gravis, pernicious anemia, diabetes, history of ureteral stone with hydronephrosis, vitamin-D deficiency, chronic low back pain, history of CVA presented to the hospital with a chief complaint of heel pain.? Patient reported that she has been having mild redness on her heel which gradually increased and covering the whole heel, pain radiating up to the legs; denies any erythema in the leg.? Denies any fevers at home.? Also mentioned that she has been having diarrhea for the past 1 week-loose watery initially and had an episode of blood in the stool yesterday.? Reports she has history of hemorrhoids.? Also complains of a diffuse abdominal pain associated nausea; denies any chest pain or palpitations.? Reports she has decreased appetite and has lost 5 lb in past 2-3 weeks.? Denies any numbness tingling or focal weakness.? Denies any urinary symptoms.? Patient reports she had 1 episode of hematuria today.? 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; lipase was elevated on labs; admitted to the hospital for further management Review of Systems Review of Systems: Yes all other systems are reviewed and are negative PMFSH Past Medical History Medical History (Updated 03/08/24 @ 14:13 by Doreen Diggs MD) Tinnitus Hearing loss Anxiety and depression Diabetes mellitus, with long-term current use of insulin Urinary, incontinence, stress female Wheezing Vitamin B12 deficiency Occlusion of stent of peripheral artery Personal history of nicotine dependence Chronic low back pain History of CVA (cerebrovascular accident) (~10/2020) History of kidney stones Tubular adenoma of colon COVID-19 vaccine series declined Colitis without complication Ureteral stone with hydronephrosis Myasthenia gravis Pernicious anemia Myasthenia gravis Urge urinary incontinence Microalbuminuria Vitamin D deficiency Hypothyroidism Multinodular thyroid HTN (hypertension) Family History Family History Father Lung cancer Mother Asthma Diabetes HTN (hypertension) Heart attack Sister FH: mental illness Leukemia Mental health disorder Surgical History Surgical History History of surgery History of amputation of toe Hx of blood clots Status post biopsy of thyroid gland (~2021) History of colonoscopy History of esophagogastroduodenoscopy (EGD) History of bilateral cataract extraction (~2019) History of parathyroidectomy History of lithotripsy (~2013) History of hernia repair History of hysterectomy (~1984) Social History Social History Household Members: None Housing: Apartment Alcohol intake: current Alcohol intake frequency: does not drink Patient Tobacco Use Status: Current someday Tobacco user Tobacco use type: Cigarette Years Smoked: 45 +/- e-Cigarette/Vaping Use: Never Used Advance Directives Date on File: 03/03/22 service: No Current occupational status: disabled Cognitive needs: No Hearing needs: No Vision needs: No Meds Allergies Allergy/AdvReac Type Severity Reaction Status Date / Time Penicillins [PCN] Allergy Unknown RASH Verified 02/27/24 22:37 gabapentin AdvReac Unknown Dizziness Verified 02/27/24 22:37 Active Medications: Current Medications Acetaminophen (Acetaminophen 325 Mg Tablet) 650 mg PO Q6H PRN PRN Reason: Pain, Mild (Pain Scale 1-3) Amlodipine Besylate (Amlodipine Besylate 5 Mg Tablet) 5 mg PO DAILY [facility]; Protocol Atorvastatin Calcium (Atorvastatin Calcium 80 Mg Tablet) 80 mg PO BEDTIME [facility] Atorvastatin Calcium (Atorvastatin Calcium 80 Mg Tablet) 80 mg PO DAILY [facility] Dextrose (Dextrose 50 % 25 Gm/50 Ml Syringe) 25 gm IVPUSH Q15M PRN; Protocol PRN Reason: per Hypoglycemia Standing Ord. Dicyclomine HCl (Dicyclomine Hcl 10 Mg Capsule) 20 mg PO QID [facility] Glucose (Glucose Gel 15 Gm Gel..Gram.) 15 gm PO Q15M PRN; Protocol PRN Reason: per Hypoglycemia Standing Ord. Hydromorphone HCl (Hydromorphone Hcl 0.5 Mg/0.5 Ml Syringe) 0.5 mg IVPUSH Q4H PRN; Protocol PRN Reason: Pain, Severe (Pain Scale 7-10) Sodium Chloride (Ns) 1,000 mls @ 50 mls/hr IVCONT .Q20H [facility] Last Admin: 10/25/21 00:00 Dose: 50 mls/hr Documented by: Insulin Glargine (Insulin Glargine,Hum.Rec.Anlog 100 Unit/Ml 10 Ml Vial) 12 unit SUBCUT BEDTIME [facility] Insulin Human Lispro (Insulin Lispro 100 Unit/Ml 3 Ml Vial) 0 unit SUBCUT QIDACHS [facility]; Protocol Last Admin: 10/25/21 07:19 Dose: Not Given Documented by: Levothyroxine Sodium (Levothyroxine Sodium 125 Mcg Tablet) 125 mcg PO DAILY@0600 [facility] Last Admin: 10/25/21 06:22 Dose: 125 mcg Documented by: Melatonin (Melatonin 3 Mg Tablet) 6 mg PO BEDTIME PRN PRN Reason: Insomnia Metformin HCl (Metformin Hcl 1,000 Mg Tablet) 1,000 mg PO BID [facility] Mupirocin (Mupirocin 2 % Oint 22 Gm Tube) 1 appl TOPICAL BID [facility] Mycophenolate Mofetil (Mycophenolate Mofetil 250 Mg Capsule) 1,000 mg PO TID [facility] Omeprazole (Omeprazole 20 Mg Capsule.Dr) 20 mg PO DAILY [facility] Pharmacy Consult (Consult Rx Perform Med Rec) 1 each MISCELLANE ONCE PRN PRN Reason: Consult order Pyridostigmine Black (Pyridostigmine Black 60 Mg Tablet) 180 mg PO QID [facility] Senna (Sennosides 8.6 Mg Tablet) 17.2 mg PO BEDTIME PRN PRN Reason: Constipation Sodium Chloride (0.9 % Sodium Chloride Flush 3 Ml Syringe) 3 ml IVFLUSH QSHIFT [facility] Last Admin: 10/25/21 01:53 Dose: Not Given Documented by: Home Medications ?Medication ?Instructions ?Recorded ?Confirmed ?Last Taken ?Type mycophenolate mofetil 500 mg tablet 1,000 mg PO TID@0800,1300,1900 02/28/21 02/27/24 10/24/21 History pyridostigmine bromide 180 mg 180 mg PO 0800,1300,1900,2000 10/24/21 02/27/24 10/24/21 History tablet,extended release clopidogrel 75 mg tablet 75 mg PO DAILY 08/28/23 09/14/24 Unknown History Physical Exam Vital Signs: Vital Signs: Last Vital Signs Temp 98 F 10/24/21 19:43 Pulse 66 10/25/21 07:09 Resp 16 10/25/21 07:09 BP 131/72 10/25/21 07:09 Pulse Ox 99 10/25/21 07:09 BMI result Body Mass Index 26.2 Const: Other: Gen: Appears be in no acute distress HEENT: NCAT, Moist mucosa. Pulmonary: Vesicular breath sounds, fair air entry CVS: Normal S1-S2 Abdomen: BS+, Soft, mildly tender diffusely Extremities: Warm well perfused; right heel noted to be erythematous, tender; no evidence of open wound or discharge. Neuro: Alert and awake. Grossly nonfocal Results Labs 10/25/21 06:21 10/25/21 06:21 Labs: Short CBC 10/24/21 10/25/21 Range/Units 14:25 06:21 WBC 9.1 8.3 (4.8-10.8) X10*3/uL Hgb 15.5 14.6 (12.0-16.0) g/dl Hct 46.6 43.5 (37.0-47.0) % Plt Count 288 288 (160-400) X10*3/uL BMP 10/24/21 10/25/21 14:25 06:21 Sodium 136 138 Potassium 4.4 4.2 Chloride 107 111 H Carbon Dioxide 23 22 BUN 15 17 H Creatinine 0.75 0.69 Calcium 10.3 H D 9.8 Liver Function 10/24/21 Range/Units 14:25 Total Bilirubin 0.4 (0.0-1.0) mg/dL Direct Bilirubin 0.2 (0.0-0.5) mg/dL AST 15 (5-31) U/L ALT 21 (0-31) U/L Alkaline Phosphatase 99 (39-117) U/L Albumin 4.3 (3.5-5.0) g/dL Urine 10/24/21 Range/Units 14:22 Urine Color YELLOW Urine Appearance CLEAR Urine pH 5.5 (5.0-8.0) Ur Specific [place] >= 1.030 H (1.005-1.025) Urine Protein NEG (NEG-TRACE) MG/DL Urine Glucose (UA) 500 H (NEG) MG/DL Assessment and Plan (1) Acute pancreatitis: Status: Resolved (2) Abnormal CT of the abdomen: Status: Acute Plan 66-year-old female with a past medical history of hypertension, hyperlipidemia, hypothyroidism, hypercalcemia, myasthenia gravis, pernicious anemia, diabetes, history of ureteral stone with hydronephrosis, vitamin-D deficiency, chronic low back pain, history of CVA presented to the hospital with a chief complaint of heel pain.? Patient reported that she has been having mild redness on her heel which gradually increased and covering the whole heel, pain radiating up to the legs; denies any erythema in the leg.? Denies any fevers at home.? Also mentioned that she has been having diarrhea for the past 1 week-loose watery initially and had an episode of blood in the stool yesterday.? Reports she has history of hemorrhoids.? Also complains of a diffuse abdominal pain associated nausea; denies any chest pain or palpitations.? Reports she has decreased appetite and has lost 5 lb in past 2-3 weeks.? Denies any numbness tingling or focal weakness.? Denies any urinary symptoms.? Patient reports she had 1 episode of hematuria today.? 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 RECOMMENDATIONS: 1. Agree with bowel rest and IV fluids 2. Surgery consult and Abdominal MRI for further evaluation of the mass ADDENDUM: Patient opted to leave the hospital against medical advice Procedures Date of Service Date of Service: 10/25/21
--- NOTE | 2021-10-25 08:28 | P.CONGS_ITS ---
History of Present Illness Consult details Consult date: 10/25/21 Narrative: 66-year-old female patient presenting with complaints of Persistent diarrhea and right flank pain. She has a prior history of CVA, on Plavix, hyperlipidemia, hypertension, hypothyroidism, myasthenia gravis, pernicious anemia, diabetes. The diarrhea is associated with bright red blood per rectum and hematuria. She denied fever, chills, nausea or vomiting. She previously underwent colonoscopy in June 2021 in several colonic polyps or identified. These were felt to be benign. Laboratories revealed a normal WBC. CT of the abdomen and pelvis however revealed a 5 mm calculus in the proximal right ureter causing mild to moderate obstruction on the right. Also noted was a large cystic area in the right lower quadrant intimately associated with the cecum and possibly arising from the base of the appendix. A mucocele or mucinous cystadenoma/cystadenocarcinoma the appendix is a possibility. MRI of the abdomen /Pelvis is suggested . The patient denies significant abdominal pain but is more concerned about her diarrhea. Review of Systems Constitutional: Constitutional: Denies chills, Denies fever(s), Denies headache(s) and Denies poor appetite ENT: Denies dizziness and Denies headache(s) Cardiovascular: Cardiovascular: Denies chest pain, Denies rapid heart rate, Denies palpitations and Denies slow heart rate Respiratory: Respiratory: Denies chest congestion, Denies cough, Denies pain on inspiration and Denies wheezing Gastrointestinal: Gastrointestinal: Reports abdominal pain, Denies bloating, Reports hematochezia, Denies change in stool character, Denies constipation, Reports diarrhea, Denies nausea, Denies vomiting and Denies hematemesis Genitourinary: Genitourinary: Reports hematuria and Reports flank pain Musculoskeletal: Musculoskeletal: Denies back pain, Denies arthralgias, Denies joint swelling and Denies numbness Integumentary/Breasts: Skin/Breast: Denies change in pigmentation, Denies erythema and Denies rash Neurologic: Denies dizziness, Denies headache(s) and Denies numbness Psychiatric: Psychiatric: Denies anxiety and Denies depression Endocrine: Endocrine: Denies palpitations Hematologic/Lymphatic: Hematologic/Lymphatic: Denies easy bleeding, Denies easy bruising and Denies lymphadenopathy Allergic/Immunologic: Allergic/Immunologic: Denies wheezing PMFSH Past Medical History Medical History Chronic low back pain Colitis without complication COVID-19 vaccine series declined Dizziness, nonspecific History of CVA (cerebrovascular accident) (~10/2020) History of kidney stones HLD (hyperlipidemia) HTN (hypertension) Hypercalcemia Hypothyroidism Kidney calculi Microalbuminuria Multinodular thyroid Myasthenia gravis Myasthenia gravis Pain of plantar aspect of heel Pernicious anemia Personal history of nicotine dependence T2DM (type 2 diabetes mellitus) Tubular adenoma of colon Ureteral stone with hydronephrosis Urge urinary incontinence Vitamin D deficiency Family History Family History Father Lung cancer Mother Asthma Diabetes HTN (hypertension) Heart attack Sister FH: mental illness Leukemia Mental health disorder Surgical History Surgical History History of bilateral cataract extraction (~2019) History of colonoscopy History of esophagogastroduodenoscopy (EGD) History of hernia repair History of hysterectomy (~1984) History of lithotripsy (~2013) History of parathyroidectomy Status post biopsy of thyroid gland (~2021) Social History Social History Household Members: None Alcohol intake: current Alcohol intake frequency: does not drink Patient Tobacco Use Status: Current someday Tobacco user Tobacco use type: Cigarette Cigarettes Per Day: 1 Years Smoked: 45 +/- Advance Directives: Yes Advance Directives Information Provided: Yes Advance Directives on File: No Current occupational status: disabled Meds Allergies Allergy/AdvReac Type Severity Reaction Status Date / Time Penicillins [PCN] Allergy Unknown RASH Verified 10/24/21 11:30 gabapentin AdvReac Unknown Dizziness Verified 10/24/21 11:30 Active Medications: Current Medications Acetaminophen (Acetaminophen 325 Mg Tablet) 650 mg PO Q6H PRN PRN Reason: Pain, Mild (Pain Scale 1-3) Amlodipine Besylate (Amlodipine Besylate 5 Mg Tablet) 5 mg PO DAILY [facility]; Protocol Last Admin: 10/25/21 08:20 Dose: 5 mg Documented by: Atorvastatin Calcium (Atorvastatin Calcium 80 Mg Tablet) 80 mg PO BEDTIME [facility] Atorvastatin Calcium (Atorvastatin Calcium 80 Mg Tablet) 80 mg PO DAILY [facility] Dextrose (Dextrose 50 % 25 Gm/50 Ml Syringe) 25 gm IVPUSH Q15M PRN; Protocol PRN Reason: per Hypoglycemia Standing Ord. Dicyclomine HCl (Dicyclomine Hcl 10 Mg Capsule) 20 mg PO QID [facility] Last Admin: 10/25/21 08:22 Dose: 20 mg Documented by: Glucose (Glucose Gel 15 Gm Gel..Gram.) 15 gm PO Q15M PRN; Protocol PRN Reason: per Hypoglycemia Standing Ord. Hydromorphone HCl (Hydromorphone Hcl 0.5 Mg/0.5 Ml Syringe) 0.5 mg IVPUSH Q4H PRN; Protocol PRN Reason: Pain, Severe (Pain Scale 7-10) Sodium Chloride (Ns) 1,000 mls @ 50 mls/hr IVCONT .Q20H [facility] Last Admin: 10/25/21 00:00 Dose: 50 mls/hr Documented by: Insulin Glargine (Insulin Glargine,Hum.Rec.Anlog 100 Unit/Ml 10 Ml Vial) 12 unit SUBCUT BEDTIME [facility] Insulin Human Lispro (Insulin Lispro 100 Unit/Ml 3 Ml Vial) 0 unit SUBCUT QID [facility]; Protocol Last Admin: 10/25/21 07:19 Dose: Not Given Documented by: Levothyroxine Sodium (Levothyroxine Sodium 125 Mcg Tablet) 125 mcg PO DAILY@0600 [facility] Last Admin: 10/25/21 06:22 Dose: 125 mcg Documented by: Melatonin (Melatonin 3 Mg Tablet) 6 mg PO BEDTIME PRN PRN Reason: Insomnia Metformin HCl (Metformin Hcl 1,000 Mg Tablet) 1,000 mg PO BID [facility] Last Admin: 10/25/21 08:19 Dose: 1,000 mg Documented by: Mupirocin (Mupirocin 2 % Oint 22 Gm Tube) 1 appl TOPICAL BID [facility] Mycophenolate Mofetil (Mycophenolate Mofetil 250 Mg Capsule) 1,000 mg PO TID [facility] Omeprazole (Omeprazole 20 Mg Capsule.) 20 mg PO DAILY [facility] Last Admin: 10/25/21 08:19 Dose: 20 mg Documented by: Pharmacy Consult (Consult Rx Perform Med Rec) 1 each MISCELLANE ONCE PRN PRN Reason: Consult order Pyridostigmine [place] (Pyridostigmine [place] 60 Mg Tablet) 180 mg PO QID [facility] Senna (Sennosides 8.6 Mg Tablet) 17.2 mg PO BEDTIME PRN PRN Reason: Constipation Sodium Chloride (0.9 % Sodium Chloride Flush 3 Ml Syringe) 3 ml IVFLUSH QSHIFT [facility] Last Admin: 10/25/21 01:53 Dose: Not Given Documented by: Home Medications Medication Instructions Recorded Confirmed Last Taken Type mycophenolate mofetil 500 mg tablet 1,000 mg PO TID 02/28/21 10/24/21 10/24/21 History dulaglutide 1.5 mg/0.5 mL 1.5 mg SUBCUT MO 10/24/21 10/24/21 10/21/21 History subcutaneous pen injector (Trulicity) insulin glargine 100 unit/mL (3 12 unit SUBCUT QPM 10/24/21 10/24/21 10/23/21 History mL) subcutaneous pen (Lantus Solostar U-100 Insulin) levothyroxine 125 mcg tablet 1 tab PO DAILY 10/24/21 10/24/21 10/23/21 History pyridostigmine bromide 180 mg 180 mg PO QID 10/24/21 10/24/21 10/24/21 History tablet,extended release rosuvastatin 40 mg tablet 40 mg PO DAILY 10/24/21 10/24/21 10/23/21 History Physical Exam Vital Signs: Vital Signs: Last Vital Signs Temp 98 F 10/24/21 19:43 Pulse 66 10/25/21 07:09 Resp 16 10/25/21 07:09 BP 131/72 10/25/21 07:09 Pulse Ox 99 10/25/21 07:09 BMI result Body Mass Index 26.2 Const: General: cooperative, comfortable and well developed Nutritional Appearance: well nourished Orientation/consciousness: patient oriented x3 Eyes: Sclerae: sclerae normal EOM: EOMs intact bilaterally Neck: Neck: Yes normal visual inspection Resp: Effort & Inspection: normal respiratory effort, no cough, no respiratory distress and no stridor Cardio: Jugular venous distension: no JVD GI: Inspection: Yes normal to inspection Palpation (GI): Soft to palpation, Tenderness to palpation present (GI) in the RLQ, no guarding and not rigid Skin: General skin exam: dry skin Rashes: no rashes Neuro: General: patient oriented x3 and no focal motor deficits Extrem: General: Yes full ROM and Yes no clubbing, cyanosis or edema Psych: Appearance: grossly normal Results Labs Result diagrams: 10/25/21 06:21 10/25/21 06:21 Labs: Abnormal lab results 10/24/21 10/24/21 10/24/21 Range/Units 14:22 14:25 14:25 Abs Immat Gran (auto) 0.04 H (0.00-0.03) X10*3/uL Chloride (96-108) mmol/L Anion Gap 10 L (12-20) BUN (9-16) mg/dL POC Glucose (60-115) mg/dL Random Glucose 241 H (60-115) mg/dL Calcium 10.3 H D (8.4-10.2) mg/dL Lipase 755 H (8-78) U/L Ur Specific [place] >= 1.030 H (1.005-1.025) Urine Glucose (UA) 500 H (NEG) MG/DL Urine Blood 1+ H (NEG) 10/25/21 10/25/21 10/25/21 Range/Units 00:37 06:21 07:08 Abs Immat Gran (auto) (0.00-0.03) X10*3/uL Chloride 111 H (96-108) mmol/L Anion Gap 9 L (12-20) BUN 17 H (9-16) mg/dL POC Glucose 247 H 126 H (60-115) mg/dL Random Glucose 131 H (60-115) mg/dL Calcium (8.4-10.2) mg/dL Lipase (8-78) U/L Ur Specific [place] (1.005-1.025) Urine Glucose (UA) (NEG) MG/DL Urine Blood (NEG) Short CBC 10/24/21 10/25/21 Range/Units 14:25 06:21 WBC 9.1 8.3 (4.8-10.8) X10*3/uL Hgb 15.5 14.6 (12.0-16.0) g/dl Hct 46.6 43.5 (37.0-47.0) % Plt Count 288 288 (160-400) X10*3/uL BMP 10/24/21 10/25/21 14:25 06:21 Sodium 136 138 Potassium 4.4 4.2 Chloride 107 111 H Carbon Dioxide 23 22 BUN 15 17 H Creatinine 0.75 0.69 Calcium 10.3 H D 9.8 Liver Function 10/24/21 Range/Units 14:25 Total Bilirubin 0.4 (0.0-1.0) mg/dL Direct Bilirubin 0.2 (0.0-0.5) mg/dL AST 15 (5-31) U/L ALT 21 (0-31) U/L Alkaline Phosphatase 99 (39-117) U/L Albumin 4.3 (3.5-5.0) g/dL Urine 10/24/21 Range/Units 14:22 Urine Color YELLOW Urine Appearance CLEAR Urine pH 5.5 (5.0-8.0) Ur Specific [place] >= 1.030 H (1.005-1.025) Urine Protein NEG (NEG-TRACE) MG/DL Urine Glucose (UA) 500 H (NEG) MG/DL All other labs normal. Assessment and Plan (1) Mass of appendix: Status: Acute (2) GI bleed: Status: Acute Plan 66-year-old female patient with complaints of bloody diarrhea found on CT to have a cystic mass possibly raising from the appendix. This does appear good consistent with a possible mucocele verses cystadenoma /adenocarcinoma. MRI is recommended. I will follow along and provide further suggestions as necessary. Procedures Date of Service Date of Service: 10/25/21
--- NOTE | 2021-10-25 08:34 | PC.NURSE ---
Addendum entered by Holly Sanders 10/25/21 08:40: metformin also held because pt is npo and pt had iv contrast ct scan done as well Original Note: attempting to medicate the pt with her 0900 medications but pt states some of the medications in MAR she no longer takes, spoke with pharmacy to please go over the medications with the pt
[2021-10-25] MEDS: mycophenolate mofetiL 250 MG CAPSULE 1000 MG PO ×2 (08:44→15:25)
[2021-10-25] MEDS: 0.9 % Sodium Chloride Flush 3 ML SYRINGE IVFLUSH (08:45)
[2021-10-25] MEDS: Mupirocin 2 % Oint 22 GM TUBE 1 APPL TOPICAL (08:45)
--- NOTE | 2021-10-25 09:15 | PM.UROCN ---
History of Present Illness Consult details Consult date: 10/25/21 Narrative: aMgy is a pleasant female. Seen in emergency room for persistent diarrhea with blood and stomach cramping. Predominantly left-sided. Background of brittle diabetes and toxic nodule thyroid Imaging 5 mm right proximal ureteric stone Creatinine 0.7 Minimal this comfort Known stone former with prior procedures in [place] 2019 At this point will let General surgery complete investigation Known occasion for acute intervention Review of Systems Constitutional: Constitutional: Reports as per HPI and Reports no additional constitutional complaints Cardiovascular: Cardiovascular: Reports as per HPI and Reports no additional cardiovascular complaints Respiratory: Respiratory: Reports as per HPI and Reports no additional respiratory complaints Gastrointestinal: Gastrointestinal: Reports as per HPI and Reports no additional gastrointestinal complaints Genitourinary: Genitourinary: Reports as per HPI Musculoskeletal: Musculoskeletal: Reports no additional musculoskeletal complaints and Reports as per HPI Neurologic: Reports system reviewed and no additional complaints, except as documented and Reports as per HPI PMF Past Medical History Medical History Chronic low back pain Colitis without complication COVID-19 vaccine series declined Dizziness, nonspecific History of CVA (cerebrovascular accident) (~10/2020) History of kidney stones HLD (hyperlipidemia) HTN (hypertension) Hypercalcemia Hypothyroidism Kidney calculi Microalbuminuria Multinodular thyroid Myasthenia gravis Myasthenia gravis Pain of plantar aspect of heel Pernicious anemia Personal history of nicotine dependence T2DM (type 2 diabetes mellitus) Tubular adenoma of colon Ureteral stone with hydronephrosis Urge urinary incontinence Vitamin D deficiency Family History Family History Father Lung cancer Mother Asthma Diabetes HTN (hypertension) Heart attack Sister FH: mental illness Leukemia Mental health disorder Surgical History Surgical History History of bilateral cataract extraction (~2019) History of colonoscopy History of esophagogastroduodenoscopy (EGD) History of hernia repair History of hysterectomy (~1984) History of lithotripsy (~2013) History of parathyroidectomy Status post biopsy of thyroid gland (~2021) Social History Social History Household Members: None Alcohol intake: current Alcohol intake frequency: does not drink Patient Tobacco Use Status: Current someday Tobacco user Tobacco use type: Cigarette Cigarettes Per Day: 1 Years Smoked: 45 +/- Advance Directives: Yes Advance Directives Information Provided: Yes Advance Directives on File: No Current occupational status: disabled Meds Allergies Allergy/AdvReac Type Severity Reaction Status Date / Time Penicillins [PCN] Allergy Unknown RASH Verified 10/24/21 11:30 gabapentin AdvReac Unknown Dizziness Verified 10/24/21 11:30 Active Medications: Current Medications Acetaminophen (Acetaminophen 325 Mg Tablet) 650 mg PO Q6H PRN PRN Reason: Pain, Mild (Pain Scale 1-3) Amlodipine Besylate (Amlodipine Besylate 5 Mg Tablet) 5 mg PO DAILY [facility]; Protocol Atorvastatin Calcium (Atorvastatin Calcium 80 Mg Tablet) 80 mg PO BEDTIME [facility] Atorvastatin Calcium (Atorvastatin Calcium 80 Mg Tablet) 80 mg PO DAILY [facility] Dextrose (Dextrose 50 % 25 Gm/50 Ml Syringe) 25 gm IVPUSH Q15M PRN; Protocol PRN Reason: per Hypoglycemia Standing Ord. Dicyclomine HCl (Dicyclomine Hcl 10 Mg Capsule) 20 mg PO QID [facility] Glucose (Glucose Gel 15 Gm Gel..Gram.) 15 gm PO Q15M PRN; Protocol PRN Reason: per Hypoglycemia Standing Ord. Hydromorphone HCl (Hydromorphone Hcl 0.5 Mg/0.5 Ml Syringe) 0.5 mg IVPUSH Q4H PRN; Protocol PRN Reason: Pain, Severe (Pain Scale 7-10) Sodium Chloride (Ns) 1,000 mls @ 50 mls/hr IVCONT .Q20H [facility] Last Admin: 10/25/21 00:00 Dose: 50 mls/hr Documented by: Insulin Glargine (Insulin Glargine,Hum.Rec.Anlog 100 Unit/Ml 10 Ml Vial) 12 unit SUBCUT BEDTIME [facility] Insulin Human Lispro (Insulin Lispro 100 Unit/Ml 3 Ml Vial) 0 unit SUBCUT QIDACHS [facility]; Protocol Last Admin: 10/25/21 07:19 Dose: Not Given Documented by: Levothyroxine Sodium (Levothyroxine Sodium 125 Mcg Tablet) 125 mcg PO DAILY@0600 [facility] Last Admin: 10/25/21 06:22 Dose: 125 mcg Documented by: Melatonin (Melatonin 3 Mg Tablet) 6 mg PO BEDTIME PRN PRN Reason: Insomnia Metformin HCl (Metformin Hcl 1,000 Mg Tablet) 1,000 mg PO BID [facility] Mupirocin (Mupirocin 2 % Oint 22 Gm Tube) 1 appl TOPICAL BID [facility] Last Admin: 10/25/21 08:45 Dose: 1 appl Documented by: Mycophenolate Mofetil (Mycophenolate Mofetil 250 Mg Capsule) 1,000 mg PO TID [facility] Last Admin: 10/25/21 08:44 Dose: 1,000 mg Documented by: Omeprazole (Omeprazole 20 Mg Capsule.Dr) 20 mg PO DAILY [facility] Pharmacy Consult (Consult Rx Perform Med Rec) 1 each MISCELLANE ONCE PRN PRN Reason: Consult order Pyridostigmine [place] (Pyridostigmine [place] 60 Mg Tablet) 180 mg PO QID [facility] Last Admin: 10/25/21 08:44 Dose: 180 mg Documented by: Senna (Sennosides 8.6 Mg Tablet) 17.2 mg PO BEDTIME PRN PRN Reason: Constipation Sodium Chloride (0.9 % Sodium Chloride Flush 3 Ml Syringe) 3 ml IVFLUSH QSHIFT [facility] Last Admin: 10/25/21 08:45 Dose: 3 ml Documented by: Home Medications Medication Instructions Recorded Confirmed Last Taken Type mycophenolate mofetil 500 mg tablet 1,000 mg PO TID 02/28/21 10/24/21 10/24/21 History dulaglutide 1.5 mg/0.5 mL 1.5 mg SUBCUT MO 10/24/21 10/24/21 10/21/21 History subcutaneous pen injector (Trulicity) insulin glargine 100 unit/mL (3 12 unit SUBCUT QPM 10/24/21 10/24/21 10/23/21 History mL) subcutaneous pen (Lantus Solostar U-100 Insulin) levothyroxine 125 mcg tablet 1 tab PO DAILY 10/24/21 10/24/21 10/23/21 History pyridostigmine bromide 180 mg 180 mg PO QID 10/24/21 10/24/21 10/24/21 History tablet,extended release rosuvastatin 40 mg tablet 40 mg PO DAILY 10/24/21 10/24/21 10/23/21 History Physical Exam Vital Signs: Vital Signs: Last Vital Signs Temp 98 F 10/24/21 19:43 Pulse 66 10/25/21 07:09 Resp 16 10/25/21 07:09 BP 131/72 10/25/21 07:09 Pulse Ox 99 10/25/21 07:09 BMI result Body Mass Index 26.2 Const: General: cooperative, healthy appearing, comfortable and no acute distress Orientation/consciousness: patient oriented x3 HEENT: Face and sinus: Yes normal facial exam Mouth: moist mucous membranes Neck: Neck: Yes normal visual inspection, Yes full ROM and Yes trachea midline Chest: Chest palpation & inspection: normal inspection of the chest Resp: Effort & Inspection: normal respiratory effort, able to speak in complete sentences and no respiratory distress GI: Inspection: Yes normal to inspection Back/Spine/Pelvis: Cervical Spine: normal cervical lordosis Thoracic/Lumbar Spine: thoracic and lumbar spine normal to inspection Skin: General skin exam: no rashes or lesions noted Neuro: General: patient oriented x3, tone normal and moves all extremities Extrem: General: Yes normal to inspection and Yes capillary refill normal Results Labs Result diagrams: 10/25/21 06:21 10/25/21 06:21 Labs: Abnormal lab results 10/24/21 10/24/21 10/24/21 Range/Units 14:22 14:25 14:25 Abs Immat Gran (auto) 0.04 H (0.00-0.03) X10*3/uL Chloride (96-108) mmol/L Anion Gap 10 L (12-20) BUN (9-16) mg/dL POC Glucose (60-115) mg/dL Random Glucose 241 H (60-115) mg/dL Calcium 10.3 H D (8.4-10.2) mg/dL Lipase 755 H (8-78) U/L Ur Specific [place] >= 1.030 H (1.005-1.025) Urine Glucose (UA) 500 H (NEG) MG/DL Urine Blood 1+ H (NEG) 10/25/21 10/25/21 10/25/21 Range/Units 00:37 06:21 07:08 Abs Immat Gran (auto) (0.00-0.03) X10*3/uL Chloride 111 H (96-108) mmol/L Anion Gap 9 L (12-20) BUN 17 H (9-16) mg/dL POC Glucose 247 H 126 H (60-115) mg/dL Random Glucose 131 H (60-115) mg/dL Calcium (8.4-10.2) mg/dL Lipase (8-78) U/L Ur Specific [place] (1.005-1.025) Urine Glucose (UA) (NEG) MG/DL Urine Blood (NEG) Short CBC 10/24/21 10/25/21 Range/Units 14:25 06:21 WBC 9.1 8.3 (4.8-10.8) X10*3/uL Hgb 15.5 14.6 (12.0-16.0) g/dl Hct 46.6 43.5 (37.0-47.0) % Plt Count 288 288 (160-400) X10*3/uL BMP 10/24/21 10/25/21 14:25 06:21 Sodium 136 138 Potassium 4.4 4.2 Chloride 107 111 H Carbon Dioxide 23 22 BUN 15 17 H Creatinine 0.75 0.69 Calcium 10.3 H D 9.8 Liver Function 10/24/21 Range/Units 14:25 Total Bilirubin 0.4 (0.0-1.0) mg/dL Direct Bilirubin 0.2 (0.0-0.5) mg/dL AST 15 (5-31) U/L ALT 21 (0-31) U/L Alkaline Phosphatase 99 (39-117) U/L Albumin 4.3 (3.5-5.0) g/dL Urine 10/24/21 Range/Units 14:22 Urine Color YELLOW Urine Appearance CLEAR Urine pH 5.5 (5.0-8.0) Ur Specific [place] >= 1.030 H (1.005-1.025) Urine Protein NEG (NEG-TRACE) MG/DL Urine Glucose (UA) 500 H (NEG) MG/DL All other labs normal. Assessment and Plan (1) Calculus of proximal right ureter: Status: Acute Plan Continue to follow If pain persist on right side may warrant intervention Procedures Date of Service Date of Service: 10/25/21
[2021-10-25] MEDS: iohexoL 350 MG/ML 100 ML INFUS..BTL IV (09:28)
--- NOTE | 2021-10-25 10:48 | PM.CNGS ---
History of Present Illness Consult details Consult date: 10/25/21 Reason for consult: wound care Narrative: Complex 66-year-old female who presents to the hospital originally from Cardiology. There is concern a GI bleed. Upon workup there was concern also of pancreatitis. She was subsequently admitted. Upon workup she was discovered to have a pressure ulcer on the left foot which was quite painful for her. Upon discussion with the patient she reports that she has had repeated pain on that heel. She has had 2 prior injections in that heal by Podiatry. She has now developed this stage I to stage II pressure ulcer on that left heel. She has undergone noninvasive arterial ultrasound of that left leg. She now presents to us for vascular evaluation. Review of Systems Review of Systems: Yes all other systems are reviewed and are negative Constitutional: Constitutional: Reports no additional constitutional complaints ENT: Reports Normal hearing present Cardiovascular: Cardiovascular: Denies chest pain, Denies chest pain at rest, Denies chest pain with activity and Denies pedal edema Respiratory: Respiratory: Denies cough Gastrointestinal: Gastrointestinal: Denies abdominal pain Musculoskeletal: Musculoskeletal: Denies abnormal gait, Denies muscle cramps and Denies radiating pain into limb Integumentary/Breasts: Skin/Breast: Denies skin ulcer and Denies wounds Neurologic: Reports Normal hearing present and Denies abnormal gait Psychiatric: Psychiatric: Reports no additional psychiatric complaints PMFSH Past Medical History Medical History Chronic low back pain Colitis without complication COVID-19 vaccine series declined Dizziness, nonspecific History of CVA (cerebrovascular accident) (~10/2020) History of kidney stones HLD (hyperlipidemia) HTN (hypertension) Hypercalcemia Hypothyroidism Kidney calculi Microalbuminuria Multinodular thyroid Myasthenia gravis Myasthenia gravis Pain of plantar aspect of heel Pernicious anemia Personal history of nicotine dependence T2DM (type 2 diabetes mellitus) Tubular adenoma of colon Ureteral stone with hydronephrosis Urge urinary incontinence Vitamin D deficiency Family History Family History Father Lung cancer Mother Asthma Diabetes HTN (hypertension) Heart attack Sister FH: mental illness Leukemia Mental health disorder Surgical History Surgical History History of bilateral cataract extraction (~2019) History of colonoscopy History of esophagogastroduodenoscopy (EGD) History of hernia repair History of hysterectomy (~1984) History of lithotripsy (~2013) History of parathyroidectomy Status post biopsy of thyroid gland (~2021) Social History Social History Household Members: None Alcohol intake: current Alcohol intake frequency: does not drink Patient Tobacco Use Status: Current someday Tobacco user Tobacco use type: Cigarette Cigarettes Per Day: 1 Years Smoked: 45 +/- Advance Directives: Yes Advance Directives Information Provided: Yes Advance Directives on File: No Current occupational status: disabled Meds Allergies Allergy/AdvReac Type Severity Reaction Status Date / Time Penicillins [PCN] Allergy Unknown RASH Verified 10/24/21 11:30 gabapentin AdvReac Unknown Dizziness Verified 10/24/21 11:30 Active Medications: Current Medications Acetaminophen (Acetaminophen 325 Mg Tablet) 650 mg PO Q6H PRN PRN Reason: Pain, Mild (Pain Scale 1-3) Amlodipine Besylate (Amlodipine Besylate 5 Mg Tablet) 5 mg PO DAILY [facility]; Protocol Atorvastatin Calcium (Atorvastatin Calcium 80 Mg Tablet) 80 mg PO BEDTIME [facility] Dextrose (Dextrose 50 % 25 Gm/50 Ml Syringe) 25 gm IVPUSH Q15M PRN; Protocol PRN Reason: per Hypoglycemia Standing Ord. Dicyclomine HCl (Dicyclomine Hcl 10 Mg Capsule) 20 mg PO QID PRN PRN Reason: GARTROINTESTINAL SPASMS/CRAMPS Glucose (Glucose Gel 15 Gm Gel..Gram.) 15 gm PO Q15M PRN; Protocol PRN Reason: per Hypoglycemia Standing Ord. Hydromorphone HCl (Hydromorphone Hcl 0.5 Mg/0.5 Ml Syringe) 0.5 mg IVPUSH Q4H PRN; Protocol PRN Reason: Pain, Severe (Pain Scale 7-10) Sodium Chloride (Ns) 1,000 mls @ 50 mls/hr IVCONT .Q20H [facility] Last Admin: 10/25/21 00:00 Dose: 50 mls/hr Documented by: Insulin Glargine (Insulin Glargine,Hum.Rec.Anlog 100 Unit/Ml 10 Ml Vial) 12 unit SUBCUT BEDTIME [facility] Insulin Human Lispro (Insulin Lispro 100 Unit/Ml 3 Ml Vial) 0 unit SUBCUT QIDACHS [facility]; Protocol Last Admin: 10/25/21 07:19 Dose: Not Given Documented by: Levothyroxine Sodium (Levothyroxine Sodium 25 Mcg Tablet) 25 mcg PO DAILY@0600 [facility] Levothyroxine Sodium (Levothyroxine Sodium 112 Mcg Tablet) 112 mcg PO DAILY@0600 [facility] Melatonin (Melatonin 3 Mg Tablet) 6 mg PO BEDTIME PRN PRN Reason: Insomnia Metformin HCl (Metformin Hcl 1,000 Mg Tablet) 1,000 mg PO BID@0900,1700 [facility] Mupirocin (Mupirocin 2 % Oint 22 Gm Tube) 1 appl TOPICAL BID [facility] Last Admin: 10/25/21 08:45 Dose: 1 appl Documented by: Mycophenolate Mofetil (Mycophenolate Mofetil 250 Mg Capsule) 1,000 mg PO TID [facility] Last Admin: 10/25/21 08:44 Dose: 1,000 mg Documented by: Omeprazole (Omeprazole 20 Mg Capsule.) 20 mg PO DAILY [facility] Pharmacy Consult (Consult Rx Perform Med Rec) 1 each MISCELLANE ONCE PRN PRN Reason: Consult order Pyridostigmine [place] (Pyridostigmine [place] 60 Mg Tablet) 180 mg PO QID [facility] Last Admin: 10/25/21 08:44 Dose: 180 mg Documented by: Senna (Sennosides 8.6 Mg Tablet) 17.2 mg PO BEDTIME PRN PRN Reason: Constipation Sodium Chloride (0.9 % Sodium Chloride Flush 3 Ml Syringe) 3 ml IVFLUSH QSHIFT [facility] Last Admin: 10/25/21 08:45 Dose: 3 ml Documented by: Home Medications Medication Instructions Recorded Confirmed Last Taken Type mycophenolate mofetil 500 mg tablet 1,000 mg PO TID@0800,1300,1900 02/28/21 10/25/21 10/24/21 History dulaglutide 1.5 mg/0.5 mL 1.5 mg SUBCUT MO@0900 10/24/21 10/25/21 10/21/21 History subcutaneous pen injector (Trulicity) insulin glargine 100 unit/mL (3 12 unit SUBCUT BEDTIME 10/24/21 10/25/21 10/23/21 History mL) subcutaneous pen (Lantus Solostar U-100 Insulin) pyridostigmine bromide 180 mg 180 mg PO 0800,1300,1900,199910/24/21 10/25/21 10/24/21 History tablet,extended release rosuvastatin 40 mg tablet 40 mg PO BEDTIME 10/24/21 10/25/21 10/23/21 History cholecalciferol (vitamin D3) 25 25 mcg PO DAILY 10/25/21 10/25/21 Unknown History mcg (1,000 unit) tablet (Vitamin D3) clopidogrel 75 mg tablet 75 mg PO DAILY@1400 10/25/21 10/25/21 10/23/21 History cyanocobalamin (vitamin B-12) 1,000 mcg PO DAILY 10/25/21 10/25/21 Unknown History 1,000 mcg tablet dicyclomine 20 mg tablet 1 tab PO QID PRN 10/25/21 10/25/21 Unknown History hydrochlorothiazide 25 mg tablet 25 mg PO DAILY@199910/25/21 10/25/21 10/23/21 History levothyroxine 137 mcg tablet 1 tab PO DAILY@0600 10/25/21 10/25/21 Unknown History [id number] 1 cap PO QID PRN 10/25/21 10/25/21 Unknown History 24,000-76,000-120,000 unit capsule,delayed rel (Creon) loteprednol etabonate 0.5 % eye 1 drp OPHTHALMIC-RIGHT TID 10/25/21 10/25/21 Unknown History drops,suspension metformin 1,000 mg tablet 1 tab PO BID@0900,1700 10/25/21 10/25/21 Unknown History nicotine 14 mg/24 hr daily 1 patch TOPICAL DAILY 10/25/21 10/25/21 Unknown History transdermal patch ramipril 10 mg capsule 10 mg PO DAILY 10/25/21 10/25/21 10/23/21 History Physical Exam Vital Signs: Vital Signs: Last Vital Signs Temp 98 F 10/24/21 19:43 Pulse 66 10/25/21 07:09 Resp 16 10/25/21 07:09 BP 131/72 10/25/21 07:09 Pulse Ox 99 10/25/21 07:09 BMI result Body Mass Index 26.2 Const: General: cooperative, healthy appearing and comfortable Orientation/consciousness: oriented to person, oriented to place and oriented to time HEENT: Head: Yes normal to inspection Neck: Neck: Yes normal visual inspection Carotids: no bruits Chest: Chest palpation & inspection: normal inspection of the chest Resp: Effort & Inspection: normal respiratory effort and able to speak in complete sentences Auscultation: clear to auscultation bilaterally, no crackles, no rales, no rhonchi and no wheezes Cardio: Rate: regular rate Rhythm: regular rhythm Heart sounds: S1 normal heart sound present and S2 normal heart sound present Bruits: no carotid bruits Peripheral pulses: Peripheral pulses 2+ throughout GI: Inspection: Yes normal to inspection Skin: Wounds: wounds noted (Left heel stage II pressor ulcer) Hair: normal Neuro: General: oriented to person, oriented to place and oriented to time Cranial nerves: Yes CN's II-XII intact bilaterally and Yes Normal hearing present Cognition (Neuro): normal cognition Motor exam (neuro): 5/5 motor strength present throughout Extrem: Other: venous exam: No significant superficial varicosities or spider telangiectasias, minimal edema General: No clubbing, No cyanosis and No edema Psych: Appearance: grossly normal Mental Status: mental status grossly normal Speech and movement: Normal speech and movement present Results Labs Result diagrams: 10/25/21 06:21 10/25/21 06:21 Labs: Abnormal lab results 10/24/21 10/24/21 10/24/21 Range/Units 14:22 14:25 14:25 Abs Immat Gran (auto) 0.04 H (0.00-0.03) X10*3/uL Chloride (96-108) mmol/L Anion Gap 10 L (12-20) BUN (9-16) mg/dL POC Glucose (60-115) mg/dL Random Glucose 241 H (60-115) mg/dL Calcium 10.3 H D (8.4-10.2) mg/dL Lipase 755 H (8-78) U/L Ur Specific [place] >= 1.030 H (1.005-1.025) Urine Glucose (UA) 500 H (NEG) MG/DL Urine Blood 1+ H (NEG) 10/25/21 10/25/21 10/25/21 Range/Units 00:37 06:21 07:08 Abs Immat Gran (auto) (0.00-0.03) X10*3/uL Chloride 111 H (96-108) mmol/L Anion Gap 9 L (12-20) BUN 17 H (9-16) mg/dL POC Glucose 247 H 126 H (60-115) mg/dL Random Glucose 131 H (60-115) mg/dL Calcium (8.4-10.2) mg/dL Lipase (8-78) U/L Ur Specific [place] (1.005-1.025) Urine Glucose (UA) (NEG) MG/DL Urine Blood (NEG) Short CBC 10/24/21 10/25/21 Range/Units 14:25 06:21 WBC 9.1 8.3 (4.8-10.8) X10*3/uL Hgb 15.5 14.6 (12.0-16.0) g/dl Hct 46.6 43.5 (37.0-47.0) % Plt Count 288 288 (160-400) X10*3/uL BMP 10/24/21 10/25/21 14:25 06:21 Sodium 136 138 Potassium 4.4 4.2 Chloride 107 111 H Carbon Dioxide 23 22 BUN 15 17 H Creatinine 0.75 0.69 Calcium 10.3 H D 9.8 Liver Function 10/24/21 Range/Units 14:25 Total Bilirubin 0.4 (0.0-1.0) mg/dL Direct Bilirubin 0.2 (0.0-0.5) mg/dL AST 15 (5-31) U/L ALT 21 (0-31) U/L Alkaline Phosphatase 99 (39-117) U/L Albumin 4.3 (3.5-5.0) g/dL Urine 10/24/21 Range/Units 14:22 Urine Color YELLOW Urine Appearance CLEAR Urine pH 5.5 (5.0-8.0) Ur Specific [place] >= 1.030 H (1.005-1.025) Urine Protein NEG (NEG-TRACE) MG/DL Urine Glucose (UA) 500 H (NEG) MG/DL All other labs normal. Assessment and Plan (1) PAD (peripheral artery disease): Status: Acute Plan In short the patient has the beginnings of a left lower extremity pressure ulcer. Noninvasive testing written report and images were reviewed demonstrates left SFA and posterior tibial atherosclerotic disease. At the current time with her underlying issues including GI bleed and questionable pancreatitis would recommend that be worked up and treated 1st. It appears that her left lower extremity has been a chronic issue for her. Will hold off on any intervention until her GI bleed has resolved as any intervention will require anticoagulation and use of anti-platelet agents. At the current time the left leg is warm viable motor and sensation intact with no open ulceration just pressure excoriation. I have given the patient my business card and she can follow up with us as an outpatient. Happy to see her approximately 2 weeks after discharge. Thank you for allowing us to assist in her care. If there are any questions or concerns please do not hesitate to contact us. Procedures Date of Service Date of Service: 10/25/21
--- NOTE | 2021-10-25 10:50 | PHA.MEDREC ---
Pharmacy Consult ? Medication Reconciliation Pharmacy has completed the medication reconciliation. Spoke with patient in the ED. pt states she should be on amlodipine but her doctor did not give her any refills. changed ramipril from BID to Daily. added eye drops, nicotine patches, creon,Vitamin d3 and b12. changed levothyroxine to 137 mcg/day bc that is what the patient states she is taking. pt takes creon and dicyclomine PRN. DC'ed atorvastatin because patient is still taking rosuvastatin. Adjusted times on many meds because patient takes them at a specific times throughout the day. leonard lance and jin driver notified
[2021-10-25] MEDS: amLODIPine Besylate 5 MG TABLET PO (11:11)
[2021-10-25] MEDS: Dicyclomine HCl 10 MG CAPSULE 20 MG PO (11:12)
[2021-10-25] MEDS: Omeprazole 20 MG CAPSULE.DR PO (11:12)
--- NOTE | 2021-10-25 11:20 | MHC.CM.PN ---
Met with pt to discuss d/c planning needs: pt resides alone and has [facility] provided SENIOR STRATEGY ANALYST services 1 hour daily M-Th and 2 hours daily on weekends. Her SENIOR STRATEGY ANALYST assists with transportation, housekeeping and other care needs. Pt uses a cane at times. No additional services anticipated at this time. Pt will call her SENIOR STRATEGY ANALYST for assistance with transportation to home. HCP completed, IMM in chart. [facility] x 2: PCP Dr. De Souza
--- NOTE | 2021-10-25 12:20 | PM.HEMONCCN ---
Subjective - Subjective Chief complaint: Consult for: Abdominal mass. Patient: new to practice Consult date: 10/25/21 Primary Care Provider: Unknown Physician Medical Summary: DIAGNOSIS: RIGHT-SIDED ABDOMINAL MASS, NEXT TO CECUM. LEFT ADNEXAL MASS. HPI - Consult Narrative Reason for consult: Consult for: Abdominal masses. Narrative: Magy Fitzgerald is a pleasant 66 year old lady, who is presenting with complaints of Persistent diarrhea and right flank pain. The diarrhea is associated with bright red blood per rectum and hematuria. She denied fever, chills, nausea or vomiting. She previously underwent colonoscopy in June 2021 in several colonic polyps or identified. These were felt to be benign. Laboratories revealed a normal WBC. CBC from 10/24: WBC 9.1, HGB 15.5, HCT 46.6, MCV 86.6, PLT 288. CT of the abdomen and pelvis however revealed; A 5 mm calculus in the proximal right ureter causing mild to moderate obstruction on the right. Also noted was a large cystic area in the right lower quadrant intimately associated with the cecum and possibly arising from the base of the appendix. A mucocele or mucinous cystadenoma/cystadenocarcinoma the appendix is a possibility. MRI of the abdomen/Pelvis is suggested. The patient denies significant abdominal pain but is more concerned about her diarrhea. PAST MEDICAL HISTORY: She has a prior history of CVA, on Plavix, hyperlipidemia, hypertension, hypothyroidism, myasthenia gravis, pernicious anemia, diabetes. FAMILY HISTORY: No family history of ovarian or colon cancer. Dad of lung cancer. 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 Currently unemployed. She is not . Has 3 children. She used to smoke more. Then down to 5 cigarettes a day. She quit 2 months ago. She denies alcohol. ROS: She does feel rather fatigued. No fever chills or night sweats. Appetite is not that good. She lost 5 lb. She does complain of dizziness. No chest pain. She gets shortness of breath on exertion. She has had abdominal pain and distension. No nausea or vomiting. He does have heartburn. She gets diarrhea 5 times a day, especially in the morning. Sometimes she gets some blood with it. She has had hematuria recently. She complains of pain in the left heel radiating upwards to into the foot. She has previously had foot ulcers. She complains of back pain. She does feel rather depressed. Denies skin rashes no pruritus. Review of Systems - Constitutional Reports system reviewed and no additional complaints, except as documented, Reports fatigue, Reports lack of energy, Reports malaise, Reports weakness, Reports weight loss, Denies fever(s) - Eyes Reports system reviewed and no additional complaints, except as documented - ENT Reports system reviewed and no additional complaints, except as documented - Cardiovascular Reports system reviewed and no additional complaints, except as documented - Respiratory Reports no additional respiratory complaints - Gastrointestinal Reports system reviewed and no additional complaints, except as documented, Reports bloating, Reports bright, red blood in stools, Reports feeling full early, Reports diarrhea - Genitourinary Reports no additional female genitourinary complaints Comments: Hematuria - Musculoskeletal Reports system reviewed and no additional complaints, except as documented Comments: Foot and back pain. - Integumentary/Breasts Skin/Breast: Reports no additional skin complaints - Neurologic Reports system reviewed and no additional complaints, except as documented, Reports as per HPI, Reports hearing normal, Denies abnormal gait, Denies dizziness, Denies headache(s), Denies numbness - Psychiatric Reports system reviewed and no additional complaints, except as documented - Endocrine Reports no additional endocrine complaints - Hematologic/Lymphatic Reports system reviewed and no additional complaints, except as documented - Allergic/Immunologic Reports system reviewed and no additional complaints, except as documented Oncology Screenings - ECOG Performance Status ECOG Performance Status: 1 [facility] Medical History: Medical History (Last Reviewed 10/24/21 @ 18:21 by KONG Marin) Chronic low back pain Colitis without complication COVID-19 vaccine series declined Dizziness, nonspecific History of CVA (cerebrovascular accident) Onset Date: ~10/2020 History of kidney stones HLD (hyperlipidemia) HTN (hypertension) Hypercalcemia Hypothyroidism Kidney calculi Microalbuminuria Multinodular thyroid Myasthenia gravis Myasthenia gravis Pain of plantar aspect of heel Pernicious anemia Personal history of nicotine dependence T2DM (type 2 diabetes mellitus) Tubular adenoma of colon Ureteral stone with hydronephrosis Urge urinary incontinence Vitamin D deficiency Functional capacity: uses cane/walker Patient : No Family History: Family History (Last Reviewed 10/24/21 @ 18:21 by KONG Marin) Father Lung cancer Mother Asthma Diabetes HTN (hypertension) Heart attack Sister FH: mental illness Leukemia Mental health disorder Surgical History: Surgical History (Last Reviewed 10/24/21 @ 18:21 by KONG Marin) History of bilateral cataract extraction Onset Date: ~2019 History of colonoscopy History of esophagogastroduodenoscopy (EGD) History of hernia repair History of hysterectomy Onset Date: ~1984 History of lithotripsy Onset Date: ~2013 History of parathyroidectomy Status post biopsy of thyroid gland Onset Date: ~2021 Social History: Social History (Last Reviewed 10/24/21 @ 18:21 by KONG Marin) Living Situation History: Household Members: None Tobacco History: Patient Tobacco Use Status: Current someday Tobacco Tobacco use type: Cigarette Years Smoked: 46 +/- Occupation Assessmet: service: No Current occupational status: disabled Home Medications and Allergies Current Medications: Current Medications Acetaminophen (Acetaminophen 325 Mg Tablet) 650 mg PO Q6H PRN PRN Reason: Pain, Mild (Pain Scale 1-3) Amlodipine Besylate (Amlodipine Besylate 5 Mg Tablet) 5 mg PO DAILY SASCHA; Protocol Last Admin: 10/25/21 11:11 Dose: 5 mg Documented by: Atorvastatin Calcium (Atorvastatin Calcium 80 Mg Tablet) 80 mg PO BEDTIME SASCHA Dextrose (Dextrose 50 % 25 Gm/50 Ml Syringe) 25 gm IVPUSH Q15M PRN; Protocol PRN Reason: per Hypoglycemia Standing Ord. Dicyclomine HCl (Dicyclomine Hcl 10 Mg Capsule) 20 mg PO QID PRN PRN Reason: GARTROINTESTINAL SPASMS/CRAMPS Last Admin: 10/25/21 11:12 Dose: 20 mg Documented by: Glucose (Glucose Gel 15 Gm Gel..Gram.) 15 gm PO Q15M PRN; Protocol PRN Reason: per Hypoglycemia Standing Ord. Hydromorphone HCl (Hydromorphone Hcl 0.5 Mg/0.5 Ml Syringe) 0.5 mg IVPUSH Q4H PRN; Protocol PRN Reason: Pain, Severe (Pain Scale 7-10) Sodium Chloride (Ns) 1,000 mls @ 50 mls/hr IVCONT .Q20H [facility] Last Admin: 10/25/21 00:00 Dose: 50 mls/hr Documented by: Insulin Glargine (Insulin Glargine,Hum.Rec.Anlog 100 Unit/Ml 10 Ml Vial) 12 unit SUBCUT BEDTIME SASCHA Insulin Human Lispro (Insulin Lispro 100 Unit/Ml 3 Ml Vial) 0 unit SUBCUT QIDACHS [facility]; Protocol Last Admin: 10/25/21 11:16 Dose: Not Given Documented by: Levothyroxine Sodium (Levothyroxine Sodium 25 Mcg Tablet) 25 mcg PO DAILY@0600 [facility] Levothyroxine Sodium (Levothyroxine Sodium 112 Mcg Tablet) 112 mcg PO DAILY@0600 [facility] Melatonin (Melatonin 3 Mg Tablet) 6 mg PO BEDTIME PRN PRN Reason: Insomnia Metformin HCl (Metformin Hcl 1,000 Mg Tablet) 1,000 mg PO BID@0900,1700 [facility] Last Admin: 10/25/21 11:02 Dose: Not Given Documented by: Mupirocin (Mupirocin 2 % Oint 22 Gm Tube) 1 appl TOPICAL BID [facility] Last Admin: 10/25/21 08:45 Dose: 1 appl Documented by: Mycophenolate Mofetil (Mycophenolate Mofetil 250 Mg Capsule) 1,000 mg PO TID [facility] Last Admin: 10/25/21 08:44 Dose: 1,000 mg Documented by: Omeprazole (Omeprazole 20 Mg Capsule.) 20 mg PO DAILY [facility] Last Admin: 10/25/21 11:12 Dose: 20 mg Documented by: Pharmacy Consult (Consult Rx Perform Med Rec) 1 each MISCELLANE ONCE PRN PRN Reason: Consult order Pyridostigmine [place] (Pyridostigmine [place] 60 Mg Tablet) 180 mg PO QID [facility] Last Admin: 10/25/21 08:44 Dose: 180 mg Documented by: Senna (Sennosides 8.6 Mg Tablet) 17.2 mg PO BEDTIME PRN PRN Reason: Constipation Sodium Chloride (0.9 % Sodium Chloride Flush 3 Ml Syringe) 3 ml IVFLUSH QSHIFT [facility] Last Admin: 10/25/21 08:45 Dose: 3 ml Documented by: Home Medications Medication Instructions Recorded Confirmed Type mycophenolate mofetil 500 mg tablet 1,000 mg PO TID@0800,1300,1900 02/28/21 10/25/21 History dulaglutide 1.5 mg/0.5 mL 1.5 mg SUBCUT MO@0900 10/24/21 10/25/21 History subcutaneous pen injector (Trulicity) insulin glargine 100 unit/mL (3 12 unit SUBCUT BEDTIME 10/24/21 10/25/21 History mL) subcutaneous pen (Lantus Solostar U-100 Insulin) pyridostigmine bromide 180 mg 180 mg PO 0800,1300,1900,199910/24/21 10/25/21 History tablet,extended release rosuvastatin 40 mg tablet 40 mg PO BEDTIME 10/24/21 10/25/21 History cholecalciferol (vitamin D3) 25 25 mcg PO DAILY 10/25/21 10/25/21 History mcg (1,000 unit) tablet (Vitamin D3) clopidogrel 75 mg tablet 75 mg PO DAILY@1400 10/25/21 10/25/21 History cyanocobalamin (vitamin B-12) 1,000 mcg PO DAILY 10/25/21 10/25/21 History 1,000 mcg tablet dicyclomine 20 mg tablet 1 tab PO QID PRN 10/25/21 10/25/21 History hydrochlorothiazide 25 mg tablet 25 mg PO DAILY@199910/25/21 10/25/21 History levothyroxine 137 mcg tablet 1 tab PO DAILY@0600 10/25/21 10/25/21 History [id number]-[id number] 1 cap PO QID PRN 10/25/21 10/25/21 History 24,000-76,000-120,000 unit capsule,delayed rel (Creon) loteprednol etabonate 0.5 % eye 1 drp OPHTHALMIC-RIGHT TID 10/25/21 10/25/21 History drops,suspension metformin 1,000 mg tablet 1 tab PO BID@0900,1700 10/25/21 10/25/21 History nicotine 14 mg/24 hr daily 1 patch TOPICAL DAILY 10/25/21 10/25/21 History transdermal patch ramipril 10 mg capsule 10 mg PO DAILY 10/25/21 10/25/21 History Allergies Allergy/AdvReac Type Severity Reaction Status Date / Time Penicillins [PCN] Allergy Unknown RASH Verified 10/24/21 11:30 gabapentin AdvReac Unknown Dizziness Verified 10/24/21 11:30 Physical Exam Vital signs: Vital Signs Temp 98 F 10/24/21 19:43 Pulse 66 10/25/21 07:09 Resp 16 10/25/21 07:09 BP 131/72 10/25/21 07:09 Pulse Ox 99 10/25/21 07:09 Intake & Output 10/24/21 10/25/21 10/25/21 18:59 06:59 18:59 Intake Total 1000 / 1000 Balance 1000 / 1000 Intake: Intake, IV Amount 1000 / 1000 0.9 % Sodium Chloride 1,000 ml 1000 / 1000 @ 999 mls/hr IV .Q1H1M SASCHA Rx#: [id number] Other: Weight 67.132 kg Weight 67.132 kg - Constitutional Present: mild distress, moderate distress - Routine HEENT Exam Head: Present: normal inspection ENT: Present: mucous membranes moist - Routine Neck Exam Present: supple - Routine Abdominal Exam Present: distended, hyperactive bowel sounds, tenderness - Routine Extremities Exam Present: nontender - Routine Skin Exam Present: wounds - Routine Neurological Exam Present: alert, oriented X3 - Detailed Neurological Exam: Coma Scale Eye Opening: Spontaneous (4) Verbal Response: Oriented (5) Motor Response: Obeys commands (6) Miguel Coma Scale Total: 15 - Routine Psychiatric Exam Present: depressed Hem/Onc Consult Result - Labs CBC & Chem 7: 10/25/21 06:21 10/25/21 06:21 Labs: Short CBC 10/24/21 10/25/21 Range/Units 14:25 06:21 WBC 9.1 8.3 (4.8-10.8) X10*3/uL Hgb 15.5 14.6 (12.0-16.0) g/dl Hct 46.6 43.5 (37.0-47.0) % Plt Count 288 288 (160-400) X10*3/uL BMP 10/24/21 10/25/21 14:25 06:21 Sodium 136 138 Potassium 4.4 4.2 Chloride 107 111 H Carbon Dioxide 23 22 BUN 15 17 H Creatinine 0.75 0.69 Calcium 10.3 H D 9.8 Liver Function 10/24/21 Range/Units 14:25 Total Bilirubin 0.4 (0.0-1.0) mg/dL Direct Bilirubin 0.2 (0.0-0.5) mg/dL AST 15 (5-31) U/L ALT 21 (0-31) U/L Alkaline Phosphatase 99 (39-117) U/L Albumin 4.3 (3.5-5.0) g/dL Urine 10/24/21 Range/Units 14:22 Urine Color YELLOW Urine Appearance CLEAR Urine pH 5.5 (5.0-8.0) Ur Specific [place] >= 1.030 H (1.005-1.025) Urine Protein NEG (NEG-TRACE) MG/DL Urine Glucose (UA) 500 H (NEG) MG/DL Assessment and Plan Patient Active problem list reviewed?: Yes (1) Mass of appendix Status: Acute Assessment and plan: This is a pleasant a 66-year-old lady who presented with abdominal pain diarrhea blood in the stools and hematuria. CT scan raise concern for a mass in the right pelvis arising from the cecum area. I reviewed the imaging. Radiologist suggested IV contrast enhanced CT. This was done today; 1. Previously suspected cystic lesion in the region of the base of the cecum is related to slight infolding of the cecum protruding posteriorly and giving rise to a cystlike appearance and not a real lesion. The appendix is well-visualized and appear morphologically normal. Specifically, no evidence of any appendiceal mass/mucocele/cystadenoma/cystadenocarcinoma present. 2. Previously documented 5 mm obstructing radiopaque calculus within the proximal right ureter producing mild proximal right-sided hydroureteronephrosis appear unchanged. 3. Previously documented left adnexal hypodense enhancing mass measuring approximately 2.7 cm is unchanged as well. CEA level: 5.20. It is reassuring that the concern for cystic mass did not wilson out after the IV contrast enhanced CT was done. However she still has left adnexal enhancing mass 2.7 cm. She would need a motion picture narrator Oncology referral for that. She will be admitted for further management of her renal stone. She may need an intervention by Urology if pain is persistent. Will set up an appointment with Dr. Christi Tucker on the outpatient basis. Appointment has been made for 11/05. Thank you for the consult, Will follow along with you, Addendum: The patient elected to sign out AMA on 10/25. Hopefully she will make the motion picture narrator oncology appointment. - Time Spent With Patient Time Spent with Patient (in minutes): 35
[2021-10-25 15:42] VITALS: BP 147/71; PULSE 67; RESP 16; TEMP 36.8; O2SAT 97
--- NOTE | 2021-10-25 15:52 | P.PNIM_ITS ---
Subjective Subjective Date of Service: 10/25/21 Interval History: seen and examined this morning admitted for multiple issues reports ongoing abdominal pain; nausea, no vomiting having some diarrhea Review of Systems Review of Systems: Yes all other systems are reviewed and are negative Constitutional Constitutional: Denies chills and Denies fever(s) Cardiovascular Cardiovascular: Denies chest pain, Denies palpitations and Denies dyspnea Respiratory Respiratory: Denies cough and Denies dyspnea Gastrointestinal Gastrointestinal: Reports abdominal pain, Reports diarrhea, Reports nausea and Denies vomiting Endocrine Endocrine: Denies palpitations Physical Exam Vital Signs: Vital Signs: Last Vital Signs Temp 98.2 F 10/25/21 15:42 Pulse 67 10/25/21 15:42 Resp 16 10/25/21 15:42 BP 147/71 H 10/25/21 15:42 Pulse Ox 97 10/25/21 15:42 BMI result Body Mass Index 26.2 Const: General: cooperative, comfortable, alert and awake Nutritional Appearance: average body habitus Orientation/consciousness: patient oriented x3 Eyes: Pupils: Equal, round and reactive pupils present EOM: EOMs intact bilaterally Resp: Effort & Inspection: normal respiratory effort and able to speak in complete sentences Auscultation: clear to auscultation bilaterally Cardio: Rate: regular rate Heart sounds: S1 normal heart sound present and S2 normal heart sound present GI: Other: +BS, tender mid/upper abdomen; non-distended : General: Yes no CVA tenderness Back/Spine/Pelvis: Back: no CVA tenderness Neuro: General: patient oriented x3 Cranial nerves: Yes Equal, round and reactive pupils present Extrem: General: Yes no pedal edema Objective Data Active Medications Acetaminophen (Acetaminophen 325 Mg Tablet) 650 mg PO Q6H PRN PRN Reason: Pain, Mild (Pain Scale 1-3) Amlodipine Besylate (Amlodipine Besylate 5 Mg Tablet) 5 mg PO DAILY [facility]; Protocol Last Admin: 10/25/21 11:11 Dose: 5 mg Documented by: LUIS EDUARDO Lipase/Protease/Amylase (Lipase/Prot/Amylase 24/76/120k 1 Cap Capsule.) 1 cap PO QID PRN PRN Reason: Digestion Artificial Tears (Artificial Tears Droperette) 1 drop EYE-BOTH TID PRN PRN Reason: dry eyes Atorvastatin Calcium (Atorvastatin Calcium 80 Mg Tablet) 80 mg PO BEDTIME [facility] Dextrose (Dextrose 50 % 25 Gm/50 Ml Syringe) 25 gm IVPUSH Q15M PRN; Protocol PRN Reason: per Hypoglycemia Standing Ord. Dicyclomine HCl (Dicyclomine Hcl 10 Mg Capsule) 20 mg PO QID PRN PRN Reason: GARTROINTESTINAL SPASMS/CRAMPS Last Admin: 10/25/21 11:12 Dose: 20 mg Documented by: LUIS EDUARDO Glucose (Glucose Gel 15 Gm Gel..Gram.) 15 gm PO Q15M PRN; Protocol PRN Reason: per Hypoglycemia Standing Ord. Hydromorphone HCl (Hydromorphone Hcl 0.5 Mg/0.5 Ml Syringe) 0.5 mg IVPUSH Q4H PRN; Protocol PRN Reason: Pain, Severe (Pain Scale 7-10) Sodium Chloride (Ns) 1,000 mls @ 50 mls/hr IVCONT .Q20H [facility] Last Admin: 10/25/21 00:00 Dose: 50 mls/hr Documented by: ABRIL Insulin Glargine (Insulin Glargine,Hum.Rec.Anlog 100 Unit/Ml 10 Ml Vial) 12 unit SUBCUT BEDTIME [facility] Insulin Human Lispro (Insulin Lispro 100 Unit/Ml 3 Ml Vial) 0 unit SUBCUT QIDACHS [facility]; Protocol Last Admin: 10/25/21 11:16 Dose: Not Given Documented by: LUIS EDUARDO Non-Admin Reason: See Note Levothyroxine Sodium (Levothyroxine Sodium 25 Mcg Tablet) 25 mcg PO DAILY@0600 [facility] Levothyroxine Sodium (Levothyroxine Sodium 112 Mcg Tablet) 112 mcg PO DAILY@0600 [facility] Levothyroxine Sodium 112 mcg/ (Levothyroxine Sodium 25 mcg) 137 mcg PO DAILY@0600 [facility] Melatonin (Melatonin 3 Mg Tablet) 6 mg PO BEDTIME PRN PRN Reason: Insomnia Metformin HCl (Metformin Hcl 1,000 Mg Tablet) 1,000 mg PO BID@0900,1700 [facility] Last Admin: 10/25/21 11:02 Dose: Not Given Documented by: LE Non-Admin Reason: NPO Comments: having iv contrast Mupirocin (Mupirocin 2 % Oint 22 Gm Tube) 1 appl TOPICAL BID [facility] Last Admin: 10/25/21 08:45 Dose: 1 appl Documented by: LE Mycophenolate Mofetil (Mycophenolate Mofetil 250 Mg Capsule) 1,000 mg PO TID [facility] Last Admin: 10/25/21 15:25 Dose: 1,000 mg Documented by: LUIS EDUARDO Omeprazole (Omeprazole 20 Mg Capsule.) 20 mg PO DAILY [facility] Last Admin: 10/25/21 11:12 Dose: 20 mg Documented by: LUIS EDUARDO Pharmacy Consult (Consult Rx Perform Med Rec) 1 each MISCELLANE ONCE PRN PRN Reason: Consult order Pyridostigmine [place] (Pyridostigmine [place] 60 Mg Tablet) 180 mg PO QID [facility] Last Admin: 10/25/21 14:09 Dose: 180 mg Documented by: LUIS EDUARDO Senna (Sennosides 8.6 Mg Tablet) 17.2 mg PO BEDTIME PRN PRN Reason: Constipation Sodium Chloride (0.9 % Sodium Chloride Flush 3 Ml Syringe) 3 ml IVFLUSH QSHIFT [facility] Last Admin: 10/25/21 08:45 Dose: 3 ml Documented by: LE Labs CBC & Chem 7: 10/25/21 06:21 10/25/21 06:21 Labs: Laboratory Results - last 24 hr 10/24/21 10/24/21 10/24/21 14:25 19:45 21:10 MCV MCH MCHC RDW Plt Count MPV Immature Gran % (Auto) Neut % (Auto) Lymph % (Auto) Park % (Auto) Eos % (Auto) Baso % (Auto) Lymph # (Auto) Park # (Auto) Eos # (Auto) Baso # (Auto) Abs Immat Gran (auto) Absolute Neuts (auto) Absolute Nucleated RBC Nucleated RBC % (auto) Anion Gap Estim Creat Clear Calc Estimated GFR POC Glucose Random Glucose Calcium Magnesium 1.8 Total Bilirubin 0.4 Direct Bilirubin 0.2 AST 15 ALT 21 Alkaline Phosphatase 99 Total Protein 7.2 Albumin 4.3 Lipase 755 H Carcinoembryonic Ag Stool Occult Blood NEGATIVE COVID-19 (GAVIN) Negative COVID-19 Clin Com See Note 10/25/21 10/25/21 10/25/21 00:37 06:21 06:21 MCV 88.1 MCH 29.6 MCHC 33.6 RDW 14.4 Plt Count 288 MPV 10.8 Immature Gran % (Auto) 0.4 Neut % (Auto) 50.3 Lymph % (Auto) 36.1 Park % (Auto) 10.1 Eos % (Auto) 2.6 Baso % (Auto) 0.5 Lymph # (Auto) 3.0 Park # (Auto) 0.8 Eos # (Auto) 0.2 Baso # (Auto) 0.0 Abs Immat Gran (auto) 0.03 Absolute Neuts (auto) 4.2 Absolute Nucleated RBC 0.000 Nucleated RBC % (auto) 0.0 Anion Gap 9 L Estim Creat Clear Calc 74.8 Estimated GFR > 60 POC Glucose 247 H Random Glucose 131 H Calcium 9.8 Magnesium Total Bilirubin Direct Bilirubin AST ALT Alkaline Phosphatase Total Protein Albumin Lipase Carcinoembryonic Ag 5.20 Stool Occult Blood COVID-19 (GAVIN) COVID-19 Clin Com 10/25/21 07:08 MCV MCH MCHC RDW Plt Count MPV Immature Gran % (Auto) Neut % (Auto) Lymph % (Auto) Park % (Auto) Eos % (Auto) Baso % (Auto) Lymph # (Auto) Park # (Auto) Eos # (Auto) Baso # (Auto) Abs Immat Gran (auto) Absolute Neuts (auto) Absolute Nucleated RBC Nucleated RBC % (auto) Anion Gap Estim Creat Clear Calc Estimated GFR POC Glucose 126 H Random Glucose Calcium Magnesium Total Bilirubin Direct Bilirubin AST ALT Alkaline Phosphatase Total Protein Albumin Lipase Carcinoembryonic Ag Stool Occult Blood COVID-19 (GAVIN) COVID-19 Clin Com Assessment and Plan (1) Acute pancreatitis: Status: Acute Plan 70-year-old female with a past medical history of hypertension, hyperlipidemia, hypothyroidism, hypercalcemia, myasthenia gravis, pernicious anemia, diabetes, history of ureteral stone with hydronephrosis, vitamin-D deficiency, chronic low back pain, history of CVA presented to the hospital with a chief complaint of heel pain. Abdominal pain: possibly r/t pancreatitis with Lipase elevated to [address] scan with contrast showing normal pancreas clear liquids, advance diet as tolerated pain control diarrhea stool studies pending no colitis on CT scan Bright red blood per rectum: Stool guaiac negative Patient reports history of hemorrhoids Will obtain stool studies Gentle IV fluids Pain control Gastroenterology consult Largest cystic abdominal mass: Concern for question cystadenocarcinoma. Repeat CT with contrast showing no evidence of mass seen by hematology Adnexal mass seen, recommend outpatient follow up with Dr. Christi Tucker 5mm Right ureteral calculus with associated mild hydroureteronephrosis UA negative for infection Seen by Urology, will follow, no need for intervention at this time HEEL erythema, likely early pressure ulcer. no skin breakdown at this time. Patient is afebrile and no leukocytosis. No indication for antibiotics Ultrasound showed vascular insufficiency Seen by Vascular surgery, outpatient follow up recommended History of hypertension/hyperlipidemia: Continue home statin, amlodipine. Hold home hydrochlorothiazide, lisinopril History of myasthenia gravis: Continue home fibrosis Ortiz, mycophenolate History of diabetes: Insulin sliding scale History of hypothyroidism: Continue home levothyroxine DVT prophylaxis: SCD boots Code status: DNR/DNI. Attending: dr. arielle Lagunas Stroke Does the patient have a stroke diagnosis?: No VTE Prior VTE?: No VTE Risk Level:: Medical - moderate - high VTE Device Contraindication: N/A - Device Ordered VTE Drug Contraindication: Treatment Not Indicated
--- NOTE | 2021-10-25 16:10 | MHC.HEMONC ---
I made appt for pt to see Dr Tucker PUBLICITY MANAGER ONC at [address] [facility] 4th floor. All info re: appt and phone number given to MAGAZINE JOURNALIST to give to pt. I am faxing record to Dr Tucker office.
--- NOTE | 2021-10-25 16:45 | PM.DS ---
DS: Providers Provider Date of Service: 10/25/21 Date of admission: 10/24/21 22:52 Date of discharge: 10/25/21 Primary care physician: Benito Physician Consults: 10/24/21 22:48 Consult to Urology Routine Consulting Provider: Leif Rodriguez Reason for consultation: Obstructing ureteral calculus 10/24/21 22:52 Consult to Gastroenterology Routine Consulting Provider: Doreen Diggs Reason for consultation: Pancreatitis; abd pain; abnormal CT; BRBPR Consult to Vascular Surgery Routine Consulting Provider: Sushil Capone Reason for consultation: PVD; heel pain/redness 10/25/21 08:12 Consult to General Surgery Routine Consulting Provider: Vinay Peralta Reason for consultation: cystic mass near cecum Has provider been notified: No 10/25/21 10:04 Consult to Hematology / Oncology Routine Consulting Provider: Massiel New Reason for consultation: cystic mass cecum Attending physician on discharge: Ayo Roland Discharging clinician: Anai Casillas DS: Diagnosis Discharge Diagnosis (1) Acute pancreatitis: Status: Acute DS: Summary Hospital Course Hospital Course: please see H&P for details on admission. argest cystic abdominal mass:? Concern for question cystadenocarcinoma.? Repeat CT with contrast showing no evidence of mass seen by hematology Adnexal mass seen, recommend outpatient follow up with Dr. Christi Tucker 5mm Right ureteral calculus with associated mild hydroureteronephrosis UA negative for infection Seen by Urology, will follow, no need for intervention at this time HEEL erythema, likely early pressure ulcer. no skin breakdown at this time. ? Patient is afebrile and no leukocytosis.? No indication for antibiotics Ultrasound showed vascular insufficiency Seen by Vascular surgery, outpatient follow up recommended unfortunately the patient opted to leave the hospital against medical advice Time Spent with Patient Time attestation: Total time spent providing and/or coordinating discharge services: Discharge coordination time: Greater than 30 minutes Quality: Safe Use of Opioids Does Pt have an Active Cancer Diagnosis on the Problem List?: No Quality: Stroke Does the patient have a stroke diagnosis?: No Physical Exam Vital Signs: Vital Signs: Last Vital Signs Temp 98.2 F 10/25/21 15:42 Pulse 67 10/25/21 15:42 Resp 16 10/25/21 15:42 BP 147/71 H 10/25/21 15:42 Pulse Ox 97 10/25/21 15:42 BMI result Body Mass Index 26.2 DS: Data Data Completed and Pending Labs on day of discharge: Laboratory Results - last 24 hr 10/24/21 10/24/21 10/24/21 14:25 19:45 21:10 WBC RBC Hgb Hct MCV MCH MCHC RDW Plt Count MPV Immature Gran % (Auto) Neut % (Auto) Lymph % (Auto) [place] % (Auto) Eos % (Auto) Baso % (Auto) Lymph # (Auto) [place] # (Auto) Eos # (Auto) Baso # (Auto) Abs Immat Gran (auto) Absolute Neuts (auto) Absolute Nucleated RBC Nucleated RBC % (auto) Sodium Potassium Chloride Carbon Dioxide Anion Gap BUN Creatinine Estim Creat Clear Calc Estimated GFR POC Glucose Random Glucose Calcium Magnesium 1.8 Total Bilirubin 0.4 Direct Bilirubin 0.2 AST 15 ALT 21 Alkaline Phosphatase 99 Total Protein 7.2 Albumin 4.3 Lipase 755 H Carcinoembryonic Ag Stool Occult Blood NEGATIVE COVID-19 (GAVIN) Negative COVID-19 Clin Com See Note 10/25/21 10/25/21 10/25/21 00:37 06:21 06:21 WBC 8.3 RBC 4.94 Hgb 14.6 Hct 43.5 MCV 88.1 MCH 29.6 MCHC 33.6 RDW 14.4 Plt Count 288 MPV 10.8 Immature Gran % (Auto) 0.4 Neut % (Auto) 50.3 Lymph % (Auto) 36.1 [place] % (Auto) 10.1 Eos % (Auto) 2.6 Baso % (Auto) 0.5 Lymph # (Auto) 3.0 [place] # (Auto) 0.8 Eos # (Auto) 0.2 Baso # (Auto) 0.0 Abs Immat Gran (auto) 0.03 Absolute Neuts (auto) 4.2 Absolute Nucleated RBC 0.000 Nucleated RBC % (auto) 0.0 Sodium 138 Potassium 4.2 Chloride 111 H Carbon Dioxide 22 Anion Gap 9 L BUN 17 H Creatinine 0.69 Estim Creat Clear Calc 74.8 Estimated GFR > 60 POC Glucose 247 H Random Glucose 131 H Calcium 9.8 Magnesium Total Bilirubin Direct Bilirubin AST ALT Alkaline Phosphatase Total Protein Albumin Lipase Carcinoembryonic Ag 5.20 Stool Occult Blood COVID-19 ([facility]) COVID-19 Clin Com 10/25/21 07:08 WBC RBC Hgb Hct MCV MCH MCHC RDW Plt Count MPV Immature Gran % (Auto) Neut % (Auto) Lymph % (Auto) [place] % (Auto) Eos % (Auto) Baso % (Auto) Lymph # (Auto) [place] # (Auto) Eos # (Auto) Baso # (Auto) Abs Immat Gran (auto) Absolute Neuts (auto) Absolute Nucleated RBC Nucleated RBC % (auto) Sodium Potassium Chloride Carbon Dioxide Anion Gap BUN Creatinine Estim Creat Clear Calc Estimated GFR POC Glucose 126 H Random Glucose Calcium Magnesium Total Bilirubin Direct Bilirubin AST ALT Alkaline Phosphatase Total Protein Albumin Lipase Carcinoembryonic Ag Stool Occult Blood COVID-19 ([facility]AV[facility]) COVID-19 [employer] Com Discharge Plan Discharge Patient Disposition: Left Against Medical Advice Discharge Diagnosis: abdominal pain Referrals: Physician,Unknown J [Primary Care Provider] - 1 Week Discharge Medications: No Action (DME) walker Misc See Rx Instructions .ROUTE .MEDSUPPLY Qty: 1 0RF Rx Instructions: walker with seat and hand brakes (DME) pen needle, diabetic [BD Ultra-Fine Marilee Pen Needle] 32 gauge x 5/32 needle See Rx Instructions .ROUTE .MEDSUPPLY Qty: 50 10RF Rx Instructions: As directed once daily Lantus Solostar U-100 Insulin 100 unit/mL (3 mL) insulin pen 12 unit subcut BEDTIME 0RF Trulicity 1.5 mg/0.5 mL pen injector 1.5 mg subcut MO@0900 0RF levothyroxine 137 mcg tablet 1 tab PO DAILY@0600 0RF cyanocobalamin (vitamin B-12) 1,000 mcg Tablet 1,000 mcg PO DAILY 0RF dicyclomine 20 mg tablet 1 tab PO QID PRN (Reason: Gastrointestinal Spasms Or Cramping) 0RF metformin 1,000 mg tablet 1 tab PO BID@0900,1700 0RF cholecalciferol (vitamin D3) [Vitamin D3] 25 mcg (1,000 unit) Tablet 25 mcg PO DAILY 0RF Creon 24,000-76,000 -120,000 unit capsule,delayed release(DR/EC) 1 cap PO QID PRN (Reason: Digestion) 0RF clopidogrel 75 mg tablet 75 mg PO DAILY@1400 0RF hydrochlorothiazide 25 mg tablet 25 mg PO DAILY@2000 0RF ramipril 10 mg capsule 10 mg PO DAILY 0RF nicotine 14 mg/24 hr patch 24 hour 1 patch topical DAILY 0RF loteprednol etabonate 0.5 % drops,suspension 1 drp ophthalmic-Right TID 0RF mycophenolate mofetil 500 mg tablet 1,000 mg PO TID@0800,1300,1900 0RF mupirocin 2 % ointment 1 appl topical BID Qty: 22 0RF (DME) FreeStyle Lite Strips Strip See Rx Instructions .ROUTE .MEDSUPPLY Qty: 100 11RF Rx Instructions: 4x daily (DME) blood-glucose meter [FreeStyle Lite Meter] Kit See Rx Instructions .Route Qty: 1 0RF Rx Instructions: As directed (DME) lancets [FreeStyle Lancets] 28 gauge misc See Rx Instructions .ROUTE .MEDSUPPLY Qty: 100 11RF Rx Instructions: 4x daily amlodipine 5 mg tablet 5 mg PO DAILY Qty: 90 3RF pyridostigmine bromide 180 mg tablet extended release 180 mg PO 0800,1300,1900,1999 0RF rosuvastatin 40 mg tablet 40 mg PO BEDTIME 0RF Discharge Orders: Discharge Order (Routine); Ordered 10/25/21 Ordered By: Anai Casillas Care Plan Goals: left AMA Health Concerns: adnexal mass kidney stone abdominal pain Plan of Treatment: call to schedule follow up with PCP as well as 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
[2021-10-25 17:08] VITALS: BP 138/77; PULSE 78; RESP 18; TEMP 37.1; O2SAT 97
--- NOTE | 2021-10-25 17:09 | PC.NURSE ---
patient requesing to leave AMA at this time. RN educated patient on need for further follow up and risks of leaving AMA. patient in no distress on departure. alert and oriented. provider aware
[2021-10-28 19:27] LABS: CA 125 New Method 10 U/mL (<35); CA-125 10 U/mL (<35)
== END 2021-10-26 08:28 | disposition left against medical advice (07) | DRG 693 ==
LOC: HO.ED 21:49 → HO.EDOVER 23:07
PROVIDERS: Physician Assistant; Admitting Provider Hospitalist; Emergency Provider Emergency Medicine; Visit Provider Nurse Practitioner Acute Care
DX: N13.2 Hydronephrosis with renal and ureteral calculous obstruction (principal); K85.90 Acute pancreatitis without necrosis or infection, unspecified; K62.5 Hemorrhage of anus and rectum; E03.9 Hypothyroidism, unspecified; L89.626 Pressure-induced deep tissue damage of left heel; I70.202 Unspecified atherosclerosis of native arteries of extremities, left leg; E11.51 Type 2 diabetes mellitus with diabetic peripheral angiopathy without gangrene; F17.210 Nicotine dependence, cigarettes, uncomplicated; R19.09 Other intra-abdominal and pelvic swelling, mass and lump; Z71.6 Tobacco abuse counseling; Z66 Do not resuscitate; Z20.822 Contact with and (suspected) exposure to COVID-19; Z98.42 Cataract extraction status, left eye; Z98.41 Cataract extraction status, right eye; Z87.442 Personal history of urinary calculi; Z86.73 Personal history of transient ischemic attack (TIA), and cerebral infarction without residual deficits; Z88.0 Allergy status to penicillin; Z88.8 Allergy status to other drugs, medicaments and biological substances; Z79.4 Long term (current) use of insulin; Z79.84 Long term (current) use of oral hypoglycemic drugs; Z79.02 Long term (current) use of antithrombotics/antiplatelets; Z79.890 Hormone replacement therapy; Z79.899 Other long term (current) drug therapy
CPT/HCPCS: 36415; 73630; 74176; 74177; 80048; 80076; 81001; 82272; 82378; 82947; 83690; 83735; 85025; 85610; 85730; 86304; 87635; 93926; 96360; 99284; 99285; Q9967

== ENCOUNTER → 2021-10-24 22:52 | Outpatient (BNV) | payer OTHER, SELFPAY | PROVIDERS: Admitting Provider Hospitalist; Emergency Provider Emergency Medicine; Visit Provider Internal Medicine Gastroenterology | DX: K85.90 Acute pancreatitis without necrosis or infection, unspecified (principal); R93.5 Abnormal findings on diagnostic imaging of other abdominal regions, including retroperitoneum | CPT/HCPCS: 99499 ==

== ENCOUNTER → 2021-11-14 08:24 | Outpatient (BNVA) | payer OTHER, SELFPAY | PROVIDERS: PCP Internal Medicine; Visit Provider Surgery Vascular Surgery | DX: I73.9 Peripheral vascular disease, unspecified (principal) | CPT/HCPCS: 99212 ==

== ENCOUNTER 2021-11-27 09:17 | Outpatient (REF) | payer OTHER, SELFPAY ==
[2021-11-27 11:15] LABS: Alanine Aminotransferase 21 U/L (0-31); Albumin Level 4.1 g/dL (3.5-5.0); Alkaline Phosphatase 75 U/L (39-117); Anion Gap 13 (12-20); Aspartate Amino Transferase 20 U/L (5-31); Bilirubin Total 0.4 mg/dL (0.0-1.0); Blood Urea Nitrogen 14 mg/dL (9-16); Calcium 9.4 mg/dL (8.4-10.2); Carbon Dioxide 25 mmol/L (22-29); Chloride 107 mmol/L (96-108); Estimated Glomerular Filt Rate > 60; Glucose Random 188 mg/dL (60-115); Potassium 3.7 mmol/L (3.3-5.1); Sodium 141 mmol/L (135-145); Total Protein 6.9 g/dL (6.5-8.0)
[2021-11-27 11:18] LABS: Estimated Average Glucose 223 mg/dL; Hemoglobin A1c % 9.4 %
[2021-11-27 11:39] LABS: Thyroid Stimulating Hormone 15.14 uIU/mL (0.32-4.0)
[2021-11-27 11:40] LABS: Free T4 (Free Thyroxine) 0.83 ng/dL (0.71-1.85); Vitamin D 25-OH Total 28.9 ng/mL (>30)
== END 2021-11-27 09:18 | disposition home or self-care (01) ==
LOC: HO.HMGCLDS 09:17
PROVIDERS: Absent Provider Internal Medicine; PCP Internal Medicine; Visit Provider Internal Medicine
DX: E55.9 Vitamin D deficiency, unspecified (principal); E11.65 Type 2 diabetes mellitus with hyperglycemia; E04.2 Nontoxic multinodular goiter; E89.0 Postprocedural hypothyroidism
CPT/HCPCS: 36415; 80053; 82306; 83036; 84439; 84443

== ENCOUNTER 2021-12-04 06:17 | Day surgery (SDC) | payer OTHER, SELFPAY ==
[2021-12-04] VITALS (8 sets, daily range): BP systolic 124–143; BP diastolic 67–83; PULSE 74–101; RESP 16–18; TEMP 36.1–36.3; O2SAT 97–99; BMI 27.1
[2021-12-04 06:33] LABS: Glucose, Whole Blood 170 mg/dL (60-115)
[2021-12-04 06:45] LABS: MANUAL DIFF FLAG NO
[2021-12-04 06:47] LABS: Basophils Percent Auto 0.5 % (0-2); Eosinophils Absolute Auto 0.3 X10*3/uL (0.0-0.4); Hematocrit 45.7 % (37.0-47.0); Hemoglobin 15.1 g/dl (12.0-16.0); Imm Gran Abs Auto 0.03 X10*3/uL (0.00-0.03); Imm Gran Pct Auto 0.3 % (0.0-0.4); Lymphocytes Absolute Auto 3.2 X10*3/uL (1.2-4.9); Lymphocytes Percent Auto 36.4 % (20-40); Mean Corpuscular Hemoglobin 28.7 pg (27.0-33.0); Mean Corpuscular Volume 86.7 fL (80.0-98.0); Mean Platelet Volume 10.2 fL (9.4-12.3); Monocytes Absolute Auto 0.8 X10*3/uL (0.1-1.2); Monocytes Percent Auto 8.6 % (2-11); Neutrophils Absolute Auto 4.5 x10*3/uL (2.0-8.3); Neutrophils Percent Auto 51.2 % (45-73); Platelet Count 305 X10*3/uL (160-400); Red Blood Count 5.27 X10*6/uL (4.20-5.50); Red Cell Distribution Width 14.4 % (11.0-16.0); White Blood Count 8.9 X10*3/uL (4.8-10.8)
[2021-12-04] MEDS: 0.9 % Sodium Chloride 1,000 ML 100 ML IVCONT (07:00)
[2021-12-04 07:29] LABS: Blood Urea Nitrogen 11 mg/dL (9-16); Creatinine Clr Calc Pharmacy 68.1; Estimated Glomerular Filt Rate > 60
--- NOTE | 2021-12-04 09:35 | W.PM.OPN ---
Operative Note Operative Note Date of Service: 12/04/21 Narrative: Angiogram report from [facility] Preoperative diagnosis: Atherosclerosis of left lower extremity with ulcer Postoperative diagnosis: Same Procedure: 1. Ultrasound-guided right common femoral access 2. Aortogram with left lower extremity runoff 3. Left SFA atherectomy and stent Surgeon:Sushil Capone M.D., FACS, RPVI Assistant Strength Coach:None Anesthesia: Local with moderate conscious sedation. Total intraservice moderate sedation time was 62 minutes. I monitored the patient's level of consciousness and physiologic status continuously throughout the procedure. Specimens:none Drains:none Estimated blood loss: Less than 10 ml Implant: Medtronic Ev 3 6 x 100 stent Indications: 66-year-old female with a history diabetes and ulcer of the foot had noninvasive testing. There is concern of SFA and tibial disease. She now presents for endovascular intervention The patient has signed the informed consent after reviewing risks, complications, benefits, and alternatives previously discussed with the patient. The patient was given the opportunity to ask any additional questions or voice any concerns. All questions were answered to the patient's satisfaction. Procedure in detail: Patient was brought to the angiography suite prior to which a time-out was called for patient identification and site verification. Bilateral groins were prepped and draped in the standard surgical fashion. Under ultrasound guidance right common femoral was punctured with micro puncture needle and wire. Subsequently a precision 5 English sheath was then placed. Bentson wire was advanced to the level of the aorta. 5 English Flush catheter was brought up and parked at the level of the renal arteries. Aortogram was then undertaken. Catheter was brought down to the level of the iliac bifurcation. Iliacs were subsequently imaged. Catheter was then brought in up and over to the left side SFA. Runoff study was then undertaken. Once this was accomplished we recognize that there was near occlusive lesion in the mid SFA. 5000 units of systemic heparin was administered. After 5 minutes of circulation time up and over 6 English sheath was then placed. Glidewire Advantage was used to traverse the lesion. We used a trail Blazer catheter and instilled with contrast in short true lumen. We then advanced a 6 English spider wire. Over this we brought in a Hawk 1 atherectomy device. We did multi unidirectional passes on the left SFA. System had to be removed at least once to remove plaque. Once this was all accomplished we then brought in a 6 x 80 balloon and plasty this region multiple insufflations were required. There was still residual stenosis. At this time we brought in a 6 x 100 stent. Once this was in position we plasty this with the 6 x 80 balloon to obtain good wall apposition. We brought catheter wire sheath back to the ipsilateral side. StarClose closure device was deployed. Patient tolerated the procedure well. Returned to recovery with stable vitals. Interpretation of films: 1. Ultrasound demonstrates appropriate femoral puncture. Image of which was saved. 2. Aortogram demonstrates appropriate caliber aorta. Minimal disease. Appropriate take-off of the renals. 3. Iliac images demonstrate disease at the aortic bifurcation no other significant disease but small in caliber 4. Left Leg Common femoral artery: No significant disease Profundus Femoris: No significant disease Superficial femoral artery: Mild disease at origin, mid to distal SFA near occluded Popliteal artery (p1,p2,p3): Small in caliber minimal disease Anterior tibial artery: Occludes after the proximal takeoff Peroneal artery: Dominant runoff but small in caliber Posterior tibial artery: Occludes and mid calf Dorsalis pedis/plantar arch: Incomplete Conclusion: 1. Successful atherectomy and stent of left SFA 2. Anticoagulation status: Will need to remain on aspirin and Plavix for 6 month This note is constructed using voice recognition software. While every effort has been made to ensure accuracy, dispatcher tow truck errors may have been included. Thank you for allowing me to participate in the care of your patient. Yours sincerely, Sushil Capone MD, FACS, R.P.V.I.
== END 2021-12-04 12:08 | disposition home or self-care (01) ==
PROVIDERS: PCP Internal Medicine; Visit Provider Surgery Vascular Surgery
DX: E11.51 Type 2 diabetes mellitus with diabetic peripheral angiopathy without gangrene (principal); Z79.4 Long term (current) use of insulin; L97.429 Non-pressure chronic ulcer of left heel and midfoot with unspecified severity; I70.244 Atherosclerosis of native arteries of left leg with ulceration of heel and midfoot; M79.672 Pain in left foot; G89.29 Other chronic pain; M54.50 Low back pain, unspecified; E78.5 Hyperlipidemia, unspecified; I10 Essential (primary) hypertension; G70.00 Myasthenia gravis without (acute) exacerbation; E55.9 Vitamin D deficiency, unspecified; Z88.0 Allergy status to penicillin; Z88.8 Allergy status to other drugs, medicaments and biological substances; Z86.73 Personal history of transient ischemic attack (TIA), and cerebral infarction without residual deficits; Z87.891 Personal history of nicotine dependence
CPT/HCPCS: 36415; 37227; 76937; 82565; 82947; 84520; 85025; 99152; 99153; C1714; C1725; C1760; C1769; C1876; C1884; C1887; J2250; J2405; J3010; Q9967

== ENCOUNTER → 2021-12-11 11:15 | Outpatient (BNVA) | payer OTHER, SELFPAY | PROVIDERS: PCP Internal Medicine; Visit Provider Internal Medicine | DX: E89.0 Postprocedural hypothyroidism (principal); E11.65 Type 2 diabetes mellitus with hyperglycemia; E83.52 Hypercalcemia; E78.5 Hyperlipidemia, unspecified; I10 Essential (primary) hypertension; E04.2 Nontoxic multinodular goiter; E55.9 Vitamin D deficiency, unspecified | CPT/HCPCS: Q3014 ==

== ENCOUNTER → 2021-12-12 14:49 | Outpatient (BNVA) | payer OTHER, SELFPAY | PROVIDERS: PCP Internal Medicine; Visit Provider Surgery Vascular Surgery | DX: I73.9 Peripheral vascular disease, unspecified (principal) | CPT/HCPCS: 99212 ==

== ENCOUNTER 2021-12-13 13:41 | Outpatient (REF) | payer OTHER, SELFPAY ==
--- NOTE | ~2021-12-13 | US_ITS ---
EXAMINATION: LOWER EXTREMITY DUPLEX, BILATERAL CLINICAL INFORMATION: Peripheral vascular disease. History of hyperlipidemia. TECHNIQUE: Real-time ultrasound and Doppler techniques (integrating B-mode 2-D vascular images, Doppler spectral analysis and color flow Doppler imaging) were utilized to interrogate the lower extremities. COMPARISON: None FINDINGS: RIGHT LEG: Common femoral artery: 89 cm/s, triphasic Profunda femoris artery: 107 cm/s, biphasic Superficial femoral artery (proximal): 48 cm/s, monophasic Superficial femoral artery (mid) (stent): Occluded Superficial femoral artery (distal): 131 cm/s, monophasic Popliteal artery: 36 cm/s, monophasic Posterior tibial artery: 46 cm/s, monophasic Peroneal artery: 24 cm/s, monophasic US/US arterial duplex LE LT IMPRESSION: A mid SFA stent is occluded. Flow beyond the stent appears via collaterals. Monophasic waveforms are present from the distal SFA to the ankle.
== END 2021-12-13 13:42 | disposition home or self-care (01) ==
LOC: HO.US 13:41
PROVIDERS: Visit Provider Surgery Vascular Surgery
DX: I73.9 Peripheral vascular disease, unspecified (principal)
CPT/HCPCS: 93926

== ENCOUNTER → 2021-12-24 12:51 | Outpatient (BNVA) | payer OTHER, SELFPAY | PROVIDERS: PCP Internal Medicine; Visit Provider Surgery Vascular Surgery | DX: I73.9 Peripheral vascular disease, unspecified (principal) | CPT/HCPCS: 99212 ==

== ENCOUNTER 2022-01-01 08:18 | Day surgery (SDC) | payer OTHER, SELFPAY ==
[2022-01-01] VITALS (10 sets, daily range): BP systolic 129–164; BP diastolic 58–90; PULSE 85–99; RESP 12–20; TEMP 36.7–36.9; O2SAT 96–97; BMI 28.3
[2022-01-01 08:41] LABS: MANUAL DIFF FLAG NO
[2022-01-01 08:43] LABS: Basophils Percent Auto 0.4 % (0-2); Eosinophils Absolute Auto 0.2 X10*3/uL (0.0-0.4); Eosinophils Percent Auto 2.1 % (0-4); Hematocrit 45.6 % (37.0-47.0); Hemoglobin 14.9 g/dl (12.0-16.0); Imm Gran Abs Auto 0.04 X10*3/uL (0.00-0.03); Imm Gran Pct Auto 0.4 % (0.0-0.4); Lymphocytes Absolute Auto 2.3 X10*3/uL (1.2-4.9); Lymphocytes Percent Auto 20.2 % (20-40); Mean Corpuscular HGB Conc 32.7 g/dl (31.0-35.0); Mean Corpuscular Hemoglobin 28.1 pg (27.0-33.0); Mean Corpuscular Volume 85.9 fL (80.0-98.0); Mean Platelet Volume 10.3 fL (9.4-12.3); Monocytes Percent Auto 8.8 % (2-11); Neutrophils Absolute Auto 7.7 x10*3/uL (2.0-8.3); Neutrophils Percent Auto 68.1 % (45-73); Platelet Count 310 X10*3/uL (160-400); Red Blood Count 5.31 X10*6/uL (4.20-5.50); Red Cell Distribution Width 14.2 % (11.0-16.0); White Blood Count 11.3 X10*3/uL (4.8-10.8)
[2022-01-01 09:04] LABS: Glucose, Whole Blood 184 mg/dL (60-115)
[2022-01-01 09:06] LABS: Blood Urea Nitrogen 17 mg/dL (9-16); Estimated Glomerular Filt Rate > 60
--- NOTE | 2022-01-01 11:32 | P.OP_ITS ---
Operative Note Operative Note Date of Service: 01/01/22 Narrative: Angiogram report from [facility] Preoperative diagnosis: Atherosclerosis of left lower extremity with activity limiting claudication Postoperative diagnosis: Same Procedure: 1. Ultrasound-guided right common femoral access 2. Aortogram with left lower extremity runoff Surgeon:Sushil Capone M.D., FACS, RPVI Ergonomics Engineer:None Anesthesia: Local with moderate conscious sedation. Total intraservice moderate sedation time was 55 minutes. I monitored the patient's level of consciousness and physiologic status continuously throughout the procedure. Specimens:none Drains:none Estimated blood loss: Less than 10 ml Implant: None Indications: 66-year-old female with a history of smoking and diabetes has left lower extremity activity limiting claudication. She now presents for endovascular intervention. The patient has signed the informed consent after reviewing risks, complications, benefits, and alternatives previously discussed with the patient. The patient was given the opportunity to ask any additional questions or voice any concerns. All questions were answered to the patient's satisfaction. Procedure in detail: Patient was brought to the angiography suite prior to which a time-out was called for patient identification and site verification. Bilateral groins were prepped and draped in the standard surgical fashion. Under ultrasound guidance right common femoral was punctured with micro puncture needle and wire. Subsequently a precision 5 Mauritian sheath was then placed. Vusionson wire was advanced to the level of the aorta. 5 Mauritian Flush catheter was brought up and parked at the level of the renal arteries. Aortogram was then undertaken. Catheter was brought down to the level of the iliac bifurcation. Iliacs were subsequently imaged. Catheter was then brought in up and over to the left side SFA. Runoff study was then undertaken. We attempted to intervene in the left lower extremity across the occluded SFA stent. With multiple attempts were made to traverse this lesion. We went from an 035 catheter to of 035 glidewire Advantage a stiff Glidewire and an 014 advantage wire none of which were able to traverse this occlusion. Multiple attempts were made with multiple orthogonal views. We were unable to cross. At this time catheter wire sheath were then removed. Direct pressure was held for 10 minutes. Patient tolerated the procedure well. Interpretation of films: 1. Ultrasound demonstrates appropriate femoral puncture. Image of which was saved. 2. Aortogram demonstrates appropriate caliber aorta. Minimal disease. Appropriate take-off of the renals. 3. Iliac images demonstrate tortuous but no significant 4. Left Leg Common femoral artery: No significant disease Profundus Femoris: No significant disease Superficial femoral artery: There is about a 3-4 cm origin of SFA and then totally occluded reconstitution at the above knee popliteal. Prior stent is occluded there as well. Popliteal artery (p1,p2,p3): P1 and P3 are patent, P2 has a mild stenosis Anterior tibial artery: Very tenuous but occludes Peroneal artery: Dominant runoff and occludes at the ankle Posterior tibial artery: Occluded Dorsalis pedis/plantar arch: Incomplete Conclusion: 1. Successful diagnostic angiogram. Should ulcer not heal she will require of fem-pop bypass. 2. Anticoagulation status: No change This note is constructed using voice recognition software. While every effort has been made to ensure accuracy, safety manager errors may have been included. Thank you for allowing me to participate in the care of your patient. Yours sincerely, Sushil Capone MD, FACS, R.P.V.I.
[2022-01-01] MEDS: Morphine Sulfate 4 MG/ML CARTRIDGE IVPUSH (12:11)
[2022-01-01] MEDS: Acetaminophen 325 MG TABLET 650 MG PO (12:14)
[2022-01-01] MEDS: oxyCODONE HCl Immed Release 5 MG TABLET PO (12:15)
[2022-01-01] MEDS: iohexoL 300 MG/ML 100 ML INFUS..BTL IV (14:18)
== END 2022-01-01 17:00 | disposition home or self-care (01) ==
PROVIDERS: PCP Internal Medicine; Visit Provider Surgery Vascular Surgery
DX: E11.51 Type 2 diabetes mellitus with diabetic peripheral angiopathy without gangrene (principal); I70.212 Atherosclerosis of native arteries of extremities with intermittent claudication, left leg; Z79.4 Long term (current) use of insulin; I10 Essential (primary) hypertension; E78.5 Hyperlipidemia, unspecified; G70.00 Myasthenia gravis without (acute) exacerbation; R42 Dizziness and giddiness; Z86.73 Personal history of transient ischemic attack (TIA), and cerebral infarction without residual deficits; Z88.0 Allergy status to penicillin; Z88.8 Allergy status to other drugs, medicaments and biological substances; Z87.891 Personal history of nicotine dependence
CPT/HCPCS: 36247; 36415; 76937; 82565; 82947; 84520; 85025; 99152; 99153; C1769; C1887; J2250; J2270; J3010; Q9967

== ENCOUNTER 2022-01-07 14:08 | Emergency (ER) | payer OTHER, SELFPAY ==
[2022-01-07 15:56] VITALS: BP 186/99; PULSE 94; RESP 18; TEMP 36.2; O2SAT 97; BMI 26.5
--- NOTE | 2022-01-07 16:57 | ED_ITS ---
HPI - Extremity Problem General Chief complaint: Extremity Problem Stated complaint: Surgery 01/01/unable to walk/sit Time Seen by Provider: 01/07/22 16:23 Source: patient and RN notes reviewed Mode of arrival: ambulatory Limitations: no limitations History of Present Illness HPI Narrative: This is a 71-fapf-rxo-female, with a past medical history of occlusion of stent of peripheral artery currently being followed by Dr. Capone, DMII, chronic low back pain, colitis, CVA in 10/2020 on coumadin, kidney stones, HLD, HTN, hypercalcemia, hypothyroidism, microalbuminuria, multinodular thyroid, myasthenia gravis, and pernicious anemia, who presents today with complaints of worsening pain in left foot x 2 weeks. She states that her left foot has been red for the last 2 months, but has developed coldness in her foot and her left toes have been increasing in pain and numbness with light palpation over the last 2 weeks. She states that the pain radiates up into her left calf. She states that at times she does get pain that radiates up her anterior leg and across her lower abdomen. She states that she was seen by Dr. Capone on 01/01/22, where she had an ultrasound-guided right common femoral access and aortogram with left lower extremity runoff due to her current symptoms. She states that since the procedure, her symptoms have not improved. She called Dr. Capone's office and has a follow up appointment on January 20. She has been taking oxycodone for her pain, which only provides her relief for 1 hour. She denies any chest pain or shortness of breath. No other complaints or concerns at this time. MD Complaint: extremity pain and cold extremity Onset (ago): week(s) Pain Consistency: constant Location: left Quality: aching and other (numbess) Radiation: proximal Relieving factors: medication and rest Exacerbating factors: range of motion, weight bearing, walking and palpation Associated symptoms: denies other symptoms Context: recent surgery/procedure and history of peripheral vascular disease Related Data Home Medications Medication Instructions Recorded Confirmed mycophenolate mofetil 500 mg tablet 1,000 mg PO TID@0800,1300,1900 02/28/21 12/30/21 insulin glargine 100 unit/mL (3 12 unit subcut BEDTIME 10/24/21 12/30/21 mL) subcutaneous pen (Lantus Solostar U-100 Insulin) pyridostigmine bromide 180 mg 180 mg PO 0800,1300,1900,199910/24/21 12/30/21 tablet,extended release rosuvastatin 40 mg tablet 40 mg PO BEDTIME 10/24/21 12/30/21 cholecalciferol (vitamin D3) 25 25 mcg PO DAILY 10/25/21 12/30/21 mcg (1,000 unit) tablet (Vitamin D3) cyanocobalamin (vitamin B-12) 1,000 mcg PO DAILY 10/25/21 12/30/21 1,000 mcg tablet dicyclomine 20 mg tablet 1 tab PO QID PRN Gastrointestinal 10/25/21 12/30/21 Spasms Or Cramping hydrochlorothiazide 25 mg tablet 25 mg PO DAILY@199910/25/21 12/30/21 [id number] 1 cap PO QID PRN Digestion 10/25/21 12/30/21 24,000-76,000-120,000 unit capsule,delayed rel (Creon) ramipril 10 mg capsule 10 mg PO DAILY 10/25/21 12/30/21 Previous Rx's Medication Instructions Recorded walker #1 ea 11/21/20 pen needle, diabetic 32 gauge x #50 ea 03/29/21 (BD Ultra-Fine Marilee Pen Needle) amlodipine 5 mg tablet 5 mg PO DAILY #90 tabs 09/02/21 blood sugar diagnostic (FreeStyle #100 ea 09/09/21 Lite Strips) blood-glucose meter (FreeStyle #1 ea 09/09/21 Lite Meter kit) lancets 28 gauge (FreeStyle #100 ea 09/09/21 Lancets) mupirocin 2 % topical ointment 1 appl topical BID #22 grams 10/10/21 clopidogrel 75 mg tablet (Plavix) 75 mg PO DAILY #90 tabs 12/04/21 dulaglutide 3 mg/0.5 mL 3 mg (0.5 mL) subcut QWEEK 30 days 12/11/21 subcutaneous pen injector #2.5 mL (Trulicity) levothyroxine 150 mcg tablet 150 mcg PO DAILY 30 days #30 tabs 12/11/21 metformin 1,000 mg tablet 1,000 mg PO BID 30 days #60 tabs 12/11/21 oxycodone 5 mg tablet 5 mg PO Q8H PRN pain #20 tabs 01/01/22 cephalexin 500 mg capsule 500 mg PO Q6H 5 days #20 caps 01/07/22 oxycodone 5 mg tablet 5 mg PO Q8H PRN pain #10 tabs 01/07/22 Allergies Allergy/AdvReac Type Severity Reaction Status Date / Time Penicillins [PCN] Allergy Unknown RASH Verified 01/07/22 15:56 gabapentin AdvReac Unknown Dizziness Verified 01/07/22 15:56 Review of Systems Review of Systems: Constitutional: No Fever, No Chills ENT/Mouth: No sore throat, No Rhinorrhea, No Swallowing Difficulty Eyes: No Eye Pain, No Swelling, No Redness Cardiovascular: No Chest Pain, No SOB, No Orthopnea, No Edema Respiratory: No Cough, No Sputum, No Wheezing, No dyspnea Gastrointestinal: No Nausea, No Vomiting, No Diarrhea, No abdominal Pain, No Hematochezia, No Melena Genitourinary: No Dysuria, No Urinary Frequency, No Hematuria Musculoskeletal: +left leg pain, +left foot pain, No joint pain, No Myalgias Skin: +left foot redness Neuro: No Weakness, No Numbness, No Dizziness, No Headache Psych: No Anxiety/Panic, No Depression PMFSH Past Medical History Medical History Chronic low back pain Colitis without complication COVID-19 vaccine series declined History of CVA (cerebrovascular accident) (~10/2020) History of kidney stones HLD (hyperlipidemia) HTN (hypertension) Hypercalcemia Hypothyroidism Kidney calculi Microalbuminuria Multinodular thyroid Myasthenia gravis Myasthenia gravis Occlusion of stent of peripheral artery Pain in left foot Pain of plantar aspect of heel Pernicious anemia Personal history of nicotine dependence T2DM (type 2 diabetes mellitus) Tubular adenoma of colon Ureteral stone with hydronephrosis Urge urinary incontinence Vitamin D deficiency Surgical History History of bilateral cataract extraction (~2019) History of colonoscopy History of esophagogastroduodenoscopy (EGD) History of hernia repair History of hysterectomy (~1984) History of lithotripsy (~2013) History of parathyroidectomy Hx of blood clots Status post biopsy of thyroid gland (~2021) Family History Family History Father Lung cancer Mother Asthma Diabetes HTN (hypertension) Heart attack Sister FH: mental illness Leukemia Mental health disorder Social History Social History Household Members: None Alcohol intake: current Alcohol intake frequency: does not drink Patient Tobacco Use Status: Current someday Tobacco user Tobacco use type: Cigarette Years Smoked: 45 +/- Advance Directives: No Advance Directives Information Provided: No service: No Current occupational status: disabled Cognitive needs: No Hearing needs: No Vision needs: No Physical Exam Vital Signs: Vital Signs: Last Vital Signs Temp 97.1 F 01/07/22 15:56 Pulse 94 01/07/22 15:56 Resp 18 01/07/22 15:56 BP 186/99 H 01/07/22 15:56 Pulse Ox 97 01/07/22 15:56 BMI result Body Mass Index 26.5 Appearance: Alert. Oriented X3. No acute distress. Ambulatory. Eyes: Pupils equal, round and reactive to light. ENT: Pharynx normal. Neck: Normal inspection. Neck supple. CVS: Normal heart rate and rhythm. S1S2 regular. Respiratory: No respiratory distress. Breath sounds normal. Lungs clear to auscultation bilaterally. Abdomen: Soft and nontender. +BS x4 Extremities: Left foot is cool to the touch with erythema noted throughout all the dorsal aspects of the left metatarsals. Erythema extends circumferentially to the plantar aspect with scant purpura. DP are 1+ and palpable. Exquisitely tender to light palpation. There is a wet ulceration noted to the left fourth and fifth metatarsal webspace with moderate yellow, purulent drainage. Left calf tenderness without swelling or redness. Neuro: Oriented X 3. No motor deficit. No sensory deficit. Course Course Course Narrative: This is a 80-fazj-vuw-female, with a past medical history of occlusion of stent of peripheral artery currently being followed by Dr. Capone, DMII, chronic low back pain, colitis, CVA in 10/2020 on coumadin, kidney stones, HLD, HTN, hypercalcemia, hypothyroidism, microalbuminuria, multinodular thyroid, myasthenia gravis, and pernicious anemia, who presents today with complaints of worsening pain in left foot x 2 weeks. Patient has been seen multiple times with close follow up with Dr. Capone for intractable left lower extremity pain. Does not seem like her current symptoms are new. Coagulation studies, and labs ordered. Contacted Dr. Capone for consult. Per Dr. Capone's operative note from 01/01/2022, the left leg showed no significant disease in the common femoral artery, profundus femoris. But there are 3-4cm origin of SFA and then totally occluded reconstitution at the above knee popliteal. Prior stent is occluded there as well. Popliteal artery (p1,p2,p3) showed P1 and P3 patent, P2 with mild stenosis. Anterior tibial artery: very tenuous but occludes. Peroneal artery: dominate runoff and occludes at the ankle. The posterior tibial artery is occluded. It was documented that should ulcer not heal, she will require a fem-pop bypass). Reevaluation(s) Reevaluation #1: labs are unremarkable. called pharmacy and confirmed she is only on plavix, not coumadin. Dr. Capone recommending DAPT and no systemic anticoagulation. at this time we will discharge her with pain control, PO abx for the foot ulcer between toes 4-5. she will follow up outpatient with Dr. Capone. Stable for d/c home. Consultations Consultation #1: Dr. Capone - vascular surgery who recommends pain control and outpatient follow up MDM - Extremity (Nontraumatic) Lab Data Result diagrams: 01/07/22 18:04 01/07/22 18:04 Labs: Lab Results 01/07/22 01/07/22 01/07/22 Range/Units 18:04 18:04 18:04 WBC 8.8 (4.8-10.8) X10*3/uL RBC 5.28 (4.20-5.50) X10*6/uL Hgb 15.1 (12.0-16.0) g/dl Hct 45.5 (37.0-47.0) % MCV 86.2 (80.0-98.0) fL MCH 28.6 (27.0-33.0) pg MCHC 33.2 (31.0-35.0) g/dl RDW 13.8 (11.0-16.0) % Plt Count 287 (160-400) X10*3/uL MPV 10.4 (9.4-12.3) fL Immature Gran % (Auto) 0.6 H (0.0-0.4) % Neut % (Auto) 63.1 (45-73) % Lymph % (Auto) 23.8 (20-40) % [place] % (Auto) 10.2 (2-11) % Eos % (Auto) 1.8 (0-4) % Baso % (Auto) 0.5 (0-2) % Lymph # (Auto) 2.1 (1.2-4.9) X10*3/uL [place] # (Auto) 0.9 (0.1-1.2) X10*3/uL Eos # (Auto) 0.2 (0.0-0.4) X10*3/uL Baso # (Auto) 0.0 (0.0-0.2) X10*3/uL Abs Immat Gran (auto) 0.05 H (0.00-0.03) X10*3/uL Absolute Neuts (auto) 5.6 (2.0-8.3) x10*3/uL Absolute Nucleated RBC 0.000 (0.0-0.012) X10*3/uL Nucleated RBC % (auto) 0.0 (0.0-0.2) /100WBC PT 11.3 (10.0-13.1) SEC INR 1.0 (0.9-1.1) APTT 34.5 (24.1-38.0) SEC Sodium 141 (135-145) mmol/L Potassium 3.4 (3.3-5.1) mmol/L Chloride 101 (96-108) mmol/L Carbon Dioxide 33 H (22-29) mmol/L Anion Gap 10 L (12-20) BUN 12 (9-16) mg/dL Creatinine 0.74 (0.5-1.4) mg/dL Estim Creat Clear Calc 67.4 Estimated GFR > 60 Random Glucose 128 H (60-115) mg/dL Calcium 10.2 D (8.4-10.2) mg/dL Critical Care Time Critical Care Time Critical Care Time: No Discharge Plan Discharge Clinical Impression: PAD (peripheral artery disease), Pain in left foot Patient Disposition: Home, Self-Care Instructions: Peripheral Artery Disease (ED) Additional Instructions: Your lab workup today was unremarkable. Dr. Capone recommends outpatient follow up with him. Call his office tomorrow. Keep your foot warm to help with perfusion and pain. Keep your ulcer clean and monitor for discharge or signs of infection Take the prescribed antibiotic to help prevent infection If you develop new or worsening symptoms call 911 or come back to the ER for further evaluation. Prescriptions: New oxycodone 5 mg tablet 5 mg PO Q8H PRN (Reason: pain) Qty: 10 0RF Rx Instructions: Partial Fill upon patient request. cephalexin 500 mg capsule 500 mg PO Q6H 5 Days Qty: 20 0RF No Action (DME) walker Misc See Rx Instructions .ROUTE .MEDSUPPLY Qty: 1 0RF Rx Instructions: walker with seat and hand brakes (DME) pen needle, diabetic [BD Ultra-Fine Marilee Pen Needle] 32 gauge x 5/32 needle See Rx Instructions .ROUTE .MEDSUPPLY Qty: 50 10RF Rx Instructions: As directed once daily clopidogrel [Plavix] 75 mg tablet 75 mg PO DAILY Qty: 90 1RF Lantus Solostar U-100 Insulin 100 unit/mL (3 mL) insulin pen 12 unit subcut BEDTIME cyanocobalamin (vitamin B-12) 1,000 mcg Tablet 1,000 mcg PO DAILY dicyclomine 20 mg tablet 1 tab PO QID PRN (Reason: Gastrointestinal Spasms Or Cramping) cholecalciferol (vitamin D3) [Vitamin D3] 25 mcg (1,000 unit) Tablet 25 mcg PO DAILY Creon 24,000-76,000 -120,000 unit capsule,delayed release(DR/EC) 1 cap PO QID PRN (Reason: Digestion) hydrochlorothiazide 25 mg tablet 25 mg PO DAILY@2000 ramipril 10 mg capsule 10 mg PO DAILY oxycodone 5 mg tablet 5 mg PO Q8H PRN (Reason: pain) Qty: 20 0RF Rx Instructions: Partial Fill upon patient request. mycophenolate mofetil 500 mg tablet 1,000 mg PO TID@0800,1300,1900 mupirocin 2 % ointment 1 appl topical BID Qty: 22 0RF (DME) FreeStyle Lite Strips Strip See Rx Instructions .ROUTE .MEDSUPPLY Qty: 100 11RF Rx Instructions: 4x daily (DME) blood-glucose meter [FreeStyle Lite Meter] Kit See Rx Instructions .Route Qty: 1 0RF Rx Instructions: As directed (DME) lancets [FreeStyle Lancets] 28 gauge misc See Rx Instructions .ROUTE .MEDSUPPLY Qty: 100 11RF Rx Instructions: 4x daily levothyroxine 150 mcg tablet 150 mcg PO DAILY 30 Days Qty: 30 3RF metformin 1,000 mg tablet 1,000 mg PO BID 30 Days Qty: 60 11RF Trulicity 3 mg/0.5 mL pen injector 3 mg subcut QWEEK 30 Days Qty: 2.5 11RF amlodipine 5 mg tablet 5 mg PO DAILY Qty: 90 3RF pyridostigmine bromide 180 mg tablet extended release 180 mg PO 0800,1300,1900,2000 rosuvastatin 40 mg tablet 40 mg PO BEDTIME Referrals: Sushil Capone MD [Physician] - (chronic LLE occlusion, worsening painful ulcer. ) Interventions: ED Discharge Assessment Last Done: 01/07/22 19:19 Discharge Date/Time: 01/07/22 19:19
[2022-01-07 18:10] LABS: MANUAL DIFF FLAG NO
[2022-01-07 18:17] LABS: Prothrombin Time 11.3 SEC (10.0-13.1)
[2022-01-07 18:20] LABS: Partial Thromboplastin Time 34.5 SEC (24.1-38.0)
[2022-01-07 18:25] LABS: Anion Gap 10 (12-20); Blood Urea Nitrogen 12 mg/dL (9-16); Calcium 10.2 mg/dL (8.4-10.2); Carbon Dioxide 33 mmol/L (22-29); Chloride 101 mmol/L (96-108); Creatinine Clr Calc Pharmacy 67.4; Estimated Glomerular Filt Rate > 60; Glucose Random 128 mg/dL (60-115); Potassium 3.4 mmol/L (3.3-5.1); Sodium 141 mmol/L (135-145)
[2022-01-07 18:32] LABS: Basophils Percent Auto 0.5 % (0-2); Eosinophils Absolute Auto 0.2 X10*3/uL (0.0-0.4); Eosinophils Percent Auto 1.8 % (0-4); Hematocrit 45.5 % (37.0-47.0); Hemoglobin 15.1 g/dl (12.0-16.0); Imm Gran Abs Auto 0.05 X10*3/uL (0.00-0.03); Imm Gran Pct Auto 0.6 % (0.0-0.4); Lymphocytes Absolute Auto 2.1 X10*3/uL (1.2-4.9); Lymphocytes Percent Auto 23.8 % (20-40); Mean Corpuscular HGB Conc 33.2 g/dl (31.0-35.0); Mean Corpuscular Hemoglobin 28.6 pg (27.0-33.0); Mean Corpuscular Volume 86.2 fL (80.0-98.0); Mean Platelet Volume 10.4 fL (9.4-12.3); Monocytes Absolute Auto 0.9 X10*3/uL (0.1-1.2); Monocytes Percent Auto 10.2 % (2-11); Neutrophils Absolute Auto 5.6 x10*3/uL (2.0-8.3); Neutrophils Percent Auto 63.1 % (45-73); Platelet Count 287 X10*3/uL (160-400); Red Blood Count 5.28 X10*6/uL (4.20-5.50); Red Cell Distribution Width 13.8 % (11.0-16.0); White Blood Count 8.8 X10*3/uL (4.8-10.8)
[2022-01-07] MEDS: oxyCODONE HCl Immed Release 5 MG TABLET PO (18:46)
== END 2022-01-07 19:19 | disposition home or self-care (01) ==
PROVIDERS: Physician Assistant; Emergency Provider Emergency Medicine; PCP Internal Medicine
DX: I73.9 Peripheral vascular disease, unspecified (principal); M79.672 Pain in left foot; M79.662 Pain in left lower leg; E11.9 Type 2 diabetes mellitus without complications; I10 Essential (primary) hypertension; E78.5 Hyperlipidemia, unspecified; F17.210 Nicotine dependence, cigarettes, uncomplicated; Z79.4 Long term (current) use of insulin; Z79.02 Long term (current) use of antithrombotics/antiplatelets; Z86.718 Personal history of other venous thrombosis and embolism
CPT/HCPCS: 36415; 80048; 85025; 85610; 85730; 99283

== ENCOUNTER → 2022-01-09 09:40 | Outpatient (BNVA) | payer OTHER, SELFPAY | PROVIDERS: PCP Internal Medicine; Visit Provider Surgery Vascular Surgery | DX: I73.9 Peripheral vascular disease, unspecified (principal); Z95.820 Peripheral vascular angioplasty status with implants and grafts | CPT/HCPCS: 99212 ==

== ENCOUNTER 2022-01-14 01:34 | Emergency (ER) | payer OTHER, SELFPAY ==
--- NOTE | ~2022-01-14 | US_ITS ---
EXAMINATION: US VENOUS ULTRASOUND WITH DOPPLER LOWER EXTREMITY, LEFT CLINICAL INFORMATION: Ischemic changes COMPARISON: 10/02/2021 TECHNIQUE: Ultrasound of the deep veins is performed from the hip to the calf with compression sonography and color and pulse Doppler assessment. Spectral analysis with color-flow imaging is performed. FINDINGS: There is normal venous compression and respiratory variation and augmented flow. The visualized common femoral vein, superficial femoral vein, profunda femoral vein, popliteal vein, and the trifurcation region shows no evidence of deep venous thrombosis. There is no significant popliteal fossa cyst. If the patient's symptoms persist, followup ultrasound in 5 days 7 days might be of value to exclude proximal propagation from a non-visualized calf vein. US/US venous duplex LE LT IMPRESSION: No DVT demonstrated in the left lower extremity.
--- NOTE | ~2022-01-14 | US_ITS ---
EXAMINATION: US Left lower extremity arterial duplex CLINICAL INFORMATION: Ischemic change. Rule out blood clot. COMPARISON: 12.13.2021 TECHNIQUE: Dynamic, real-time grayscale and color Doppler sonographic evaluation of the left lower extremity arterial vasculature performed with spectral analysis. FINDINGS: Mixed calcific and soft atherosclerotic plaque present throughout the lower extremity. Collaterals are seen proximal and distal to the stent. LEFT (PSV/Waveform): * REGIONAL GUIDE: 85 cm/s, triphasic * PFA: 107 cm/s, triphasic * Proximal SFA: 48 cm/s, monophasic * Mid SFA: Occluded stent. Proximal to the stents, peak systolic velocity 63 cm/s, monophasic. Distal to the stent, peak systolic velocity 35 cm/s, monophasic. * Distal SFA: 62 cm/s, monophasic * Popliteal: 21 cm/s, monophasic * CLAIM APPROVER: 40 cm/s, monophasic * Peroneal artery on 32 cm/s, monophasic US/US arterial duplex LE LT IMPRESSION: Again seen is occlusion of the mid superficial femoral arterial stents with reconstitution of blood flow to the distal superficial femoral artery via collaterals around the stent. Monophasic waveforms are present distal to the stent, however the arteries remain patent distally.
[2022-01-14 01:48] VITALS: BP 170/80; PULSE 81; RESP 16; TEMP 36.4; O2SAT 97; BMI 26.5
[2022-01-14 01:50] VITALS: BP 148/96; PULSE 88; O2SAT 98
--- NOTE | 2022-01-14 02:14 | ED.GENADULT ---
HPI - General Adult General Chief complaint: Extremity Problem Stated complaint: leg pain Time Seen by Provider: 01/14/22 02:11 Source: patient Mode of arrival: ambulatory Limitations: no limitations History of Present Illness HPI narrative: 66-year-old female with history of peripheral vascular disease, with chronic left SFA occlusion, patient will require left femoral -popliteal bypass surgery by Dr. Capone, patient is already devolving ischemic change in the small 5th toe with small ulceration, patient take oxycodone at home that is not controlling her pain. Patient return for further evaluation. Patient is on Plavix, patient has an appointment with Dr. Jiménez did discuss the surgical option next week. Related Data Home Medications Medication Instructions Recorded Confirmed mycophenolate mofetil 500 mg tablet 1,000 mg PO TID@0800,1300,1900 02/28/21 12/30/21 insulin glargine 100 unit/mL (3 12 unit subcut BEDTIME 10/24/21 12/30/21 mL) subcutaneous pen (Lantus Solostar U-100 Insulin) pyridostigmine bromide 180 mg 180 mg PO 0800,1300,1900,199910/24/21 12/30/21 tablet,extended release rosuvastatin 40 mg tablet 40 mg PO BEDTIME 10/24/21 12/30/21 cholecalciferol (vitamin D3) 25 25 mcg PO DAILY 10/25/21 12/30/21 mcg (1,000 unit) tablet (Vitamin D3) cyanocobalamin (vitamin B-12) 1,000 mcg PO DAILY 10/25/21 12/30/21 1,000 mcg tablet dicyclomine 20 mg tablet 1 tab PO QID PRN Gastrointestinal 10/25/21 12/30/21 Spasms Or Cramping hydrochlorothiazide 25 mg tablet 25 mg PO DAILY@199910/25/21 12/30/21 [id number] 1 cap PO QID PRN Digestion 10/25/21 12/30/21 24,000-76,000-120,000 unit capsule,delayed rel (Creon) ramipril 10 mg capsule 10 mg PO DAILY 10/25/21 12/30/21 Previous Rx's Medication Instructions Recorded walker #1 ea 11/21/20 pen needle, diabetic 32 gauge x #50 ea 03/29/21 (BD Ultra-Fine [place]air[place] Pen Needle) amlodipine 5 mg tablet 5 mg PO DAILY #90 tabs 09/02/21 blood sugar diagnostic (FreeStyle #100 ea 09/09/21 Lite Strips) blood-glucose meter (FreeStyle #1 ea 09/09/21 Lite Meter kit) lancets 28 gauge (FreeStyle #100 ea 09/09/21 Lancets) mupirocin 2 % topical ointment 1 appl topical BID #22 grams 10/10/21 clopidogrel 75 mg tablet (Plavix) 75 mg PO DAILY #90 tabs 12/04/21 dulaglutide 3 mg/0.5 mL 3 mg (0.5 mL) subcut QWEEK 30 days 12/11/21 subcutaneous pen injector #2.5 mL (Trulicity) levothyroxine 150 mcg tablet 150 mcg PO DAILY 30 days #30 tabs 12/11/21 metformin 1,000 mg tablet 1,000 mg PO BID 30 days #60 tabs 12/11/21 oxycodone 5 mg tablet 5 mg PO Q8H PRN pain #20 tabs 01/01/22 cephalexin 500 mg capsule 500 mg PO Q6H 5 days #20 caps 01/07/22 oxycodone 5 mg tablet 5 mg PO Q8H PRN pain #10 tabs 01/07/22 hydromorphone 2 mg tablet 2 mg PO Q6H PRN pain #20 tabs 01/14/22 (Dilaudid) Allergies Allergy/AdvReac Type Severity Reaction Status Date / Time Penicillins [PCN] Allergy Unknown RASH Verified 01/09/22 09:49 gabapentin AdvReac Unknown Dizziness Verified 01/09/22 09:49 Review of Systems Review of Systems: All other systems are reviewed and are negative Constitutional: Reports as per HPI and Reports no additional constitutional complaints Eyes: Reports as per HPI and Reports no additional eye complaints Reports system reviewed and no additional complaints, except as documented Cardiovascular: Reports as per HPI and Reports no additional cardiovascular complaints Respiratory: Reports as per HPI and Reports no additional respiratory complaints Gastrointestinal: Reports as per HPI and Reports no additional gastrointestinal complaints Genitourinary: Reports no additional female genitourinary complaints Musculoskeletal: Reports no additional musculoskeletal complaints Skin/Breast: Reports system reviewed and no additional complaints, except as docu Psychiatric: Reports no additional psychiatric complaints Endocrine: Reports no additional endocrine complaints Hematologic/Lymphatic: Reports no additional hematologic/lymphatic complaints Allergic/Immunologic: Reports no additional allergic/immunologic complaints Reports system reviewed and no additional complaints, except as documented and Reports Abnormal speech present [facility] Past Medical History Medical History Chronic low back pain Colitis without complication COVID-19 vaccine series declined History of CVA (cerebrovascular accident) (~10/2020) History of kidney stones HLD (hyperlipidemia) HTN (hypertension) Hypercalcemia Hypothyroidism Kidney calculi Microalbuminuria Multinodular thyroid Myasthenia gravis Myasthenia gravis Occlusion of stent of peripheral artery Pain in left foot Pain of plantar aspect of heel Pernicious anemia Personal history of nicotine dependence T2DM (type 2 diabetes mellitus) Tubular adenoma of colon Ureteral stone with hydronephrosis Urge urinary incontinence Vitamin D deficiency Surgical History History of bilateral cataract extraction (~2019) History of colonoscopy History of esophagogastroduodenoscopy (EGD) History of hernia repair History of hysterectomy (~1984) History of lithotripsy (~2013) History of parathyroidectomy Hx of blood clots Status post biopsy of thyroid gland (~2021) Family History Family History Father Lung cancer Mother Asthma Diabetes HTN (hypertension) Heart attack Sister FH: mental illness Leukemia Mental health disorder Social History Social History Household Members: None Alcohol intake: current Alcohol intake frequency: does not drink Patient Tobacco Use Status: Former Tobacco user Tobacco use type: Cigarette Years Smoked: 45 +/- Advance Directives: No service: No Current occupational status: disabled Cognitive needs: No Hearing needs: No Vision needs: No Physical Exam ED Vital Signs: Vital Signs - 24 hr 01/14/22 01:48 01/14/22 04:24 01/14/22 05:42 Temperature 97.6 F 97.6 F 97.9 F Pulse Rate 81 76 79 Respiratory Rate 16 16 16 Blood Pressure 170/80 H 169/78 H 176/91 H Pulse Oximetry 97 98 98 Oxygen Delivery Method Room Air Room Air Room Air BMI result Body Mass Index 26.5 vital signs have been reviewed as appeared to be correct. Blood pressure Elevated. Heart rate normal. Respiration rate normal. Temperature normal. Oxygen saturation normal. Appearance: Alert. Oriented X3. No acute distress. Head: Normal external exam. Normocephalic. Atraumatic. No Dangelo signs noted. No raccoon eyes noted Eyes: PERRLA. EOMI. Conjunctiva and sclera normal. Eyelids normal. ENT: TM's Normal. Pharynx normal. Uvula midline. Moist mucous membranes. No trismus noted. No drooling noted. No muffled voice noted. Neck: Normal inspection. Neck supple. FROM. No adenopathy. Thyroid Normal. No meningeal signs. No neck mass noted. CVS: Normal heart rate and rhythm. Heart sound normal. No murmurs noted. Pulses normal throughout. Respiratory: No respiratory distress. Painless inspiration. Breath sounds normal. No wheezes/rales/rhonchi noted. Chest nontender. No accessory muscle usage noted or decreased air movement noted. Abdomen: Soft and nontender. Bowel sounds normal in all 4 quadrants. No distention noted. No organomegaly noted. No visible injury noted. Back: No CVA tenderness. Full range of motion noted. Skin: Skin warm and dry. Normal skin color. Normal skin turgor. No rashes/lesions/lacerations noted. Extremities: Venous exam: No significant superficial varicosesities, red streaks over the vein probably presenting superficial thrombophlebitis, no edema, absence of PT pulsation with purple color 5th toe and small black ulceration at the tip of the 5th toe. Neuro: Oriented X 3. Cranial nerve exam: II-XII are grossly intact No motor deficit. No sensory deficit. Reflexes normal. Course Course Course Narrative: 66-year-old female known history of peripheral vascular disease, patient had chronic occlusion of stent in the superficial femoral artery, early signs of chronic ischemia on the left foot in particular on the left 5th toe plantar aspect, came in for pain control patient is on oxycodone at home which is not controlling her pain, patient received Dilaudid 2 mg in the ED with better pain control. Patient has ultrasound of the left lower extremities with still show chronic obstruction of the stent of the superficial femoral artery with collaterals, the case was discussed with Dr. Capone over the phone who is very familiar with the case case supposed to go for fem-pop bypass next week by Dr. Capone who recommended to control patient's pain and discharged home and he will follow up with her as an outpatient. Medical Decision Making Lab Data Lab results reviewed: Yes I reviewed the patient's lab results. Result diagrams: 01/14/22 03:02 01/14/22 03:02 Labs: Lab Results 01/14/22 01/14/22 01/14/22 Range/Units 03:02 03:02 03:02 WBC 10.7 (4.8-10.8) X10*3/uL RBC 4.64 (4.20-5.50) X10*6/uL Hgb 13.3 (12.0-16.0) g/dl Hct 39.8 (37.0-47.0) % MCV 85.8 (80.0-98.0) fL MCH 28.7 (27.0-33.0) pg MCHC 33.4 (31.0-35.0) g/dl RDW 13.9 (11.0-16.0) % Plt Count 322 (160-400) X10*3/uL MPV 10.3 (9.4-12.3) fL Immature Gran % (Auto) 0.3 (0.0-0.4) % Neut % (Auto) 61.3 (45-73) % Lymph % (Auto) 26.3 (20-40) % [place] % (Auto) 9.3 (2-11) % Eos % (Auto) 2.4 (0-4) % Baso % (Auto) 0.4 (0-2) % Lymph # (Auto) 2.8 (1.2-4.9) X10*3/uL [place] # (Auto) 1.0 (0.1-1.2) X10*3/uL Eos # (Auto) 0.3 (0.0-0.4) X10*3/uL Baso # (Auto) 0.0 (0.0-0.2) X10*3/uL Abs Immat Gran (auto) 0.03 (0.00-0.03) X10*3/uL Absolute Neuts (auto) 6.6 (2.0-8.3) x10*3/uL Absolute Nucleated RBC 0.000 (0.0-0.012) X10*3/uL Nucleated RBC % (auto) 0.0 (0.0-0.2) /100WBC PT 12.1 (10.0-13.1) SEC INR 1.1 (0.9-1.1) APTT 29.0 (26.0-36.4) SEC Sodium 140 (135-145) mmol/L Potassium 3.6 (3.3-5.1) mmol/L Chloride 106 (96-108) mmol/L Carbon Dioxide 22 (22-29) mmol/L Anion Gap 16 (12-20) BUN 13 (9-16) mg/dL Creatinine 0.77 (0.5-1.4) mg/dL Estim Creat Clear Calc 64.8 Estimated GFR > 60 Random Glucose 126 H (60-115) mg/dL Calcium 9.0 D (8.4-10.2) mg/dL Imaging Data Venous Doppler ultrasound: Attestation: I personally reviewed and interpreted this imaging study as follows: Radiologist's impression: no DVT demonstrated in the left lower extremity. Left lower arterial ultrasound: Attestation: I personally reviewed and interpreted this imaging study as follows: Radiologist's impression: Again seen is occlusion of the mid superficial femoral arterial stents with reconstitution of blood flow to the distal superficial femoral artery via collaterals around the stent. Monophasic waveforms are present distal to the stent, however the arteries remain patent distally. Discharge Plan Discharge Clinical Impression: Occlusion of stent of peripheral artery, Superficial thrombophlebitis Patient Disposition: Home, Self-Care Instructions: Peripheral Vascular Disease (ED) Prescriptions: New hydromorphone [Dilaudid] 2 mg tablet 2 mg PO Q6H PRN (Reason: pain) Qty: 20 0RF Rx Instructions: Partial Fill upon patient request. No Action (DME) walker Misc See Rx Instructions .ROUTE .MEDSUPPLY Qty: 1 0RF Rx Instructions: walker with seat and hand brakes (DME) pen needle, diabetic [BD Ultra-Fine Marilee Pen Needle] 32 gauge x 5/32 needle See Rx Instructions .ROUTE .MEDSUPPLY Qty: 50 10RF Rx Instructions: As directed once daily clopidogrel [Plavix] 75 mg tablet 75 mg PO DAILY Qty: 90 1RF Lantus Solostar U-100 Insulin 100 unit/mL (3 mL) insulin pen 12 unit subcut BEDTIME cyanocobalamin (vitamin B-12) 1,000 mcg Tablet 1,000 mcg PO DAILY dicyclomine 20 mg tablet 1 tab PO QID PRN (Reason: Gastrointestinal Spasms Or Cramping) cholecalciferol (vitamin D3) [Vitamin D3] 25 mcg (1,000 unit) Tablet 25 mcg PO DAILY Creon 24,000-76,000 -120,000 unit capsule,delayed release(DR/EC) 1 cap PO QID PRN (Reason: Digestion) hydrochlorothiazide 25 mg tablet 25 mg PO DAILY@2000 ramipril 10 mg capsule 10 mg PO DAILY oxycodone 5 mg tablet 5 mg PO Q8H PRN (Reason: pain) Qty: 20 0RF Rx Instructions: Partial Fill upon patient request. oxycodone 5 mg tablet 5 mg PO Q8H PRN (Reason: pain) Qty: 10 0RF Rx Instructions: Partial Fill upon patient request. cephalexin 500 mg capsule 500 mg PO Q6H 5 Days Qty: 20 0RF mycophenolate mofetil 500 mg tablet 1,000 mg PO TID@0800,1300,1900 mupirocin 2 % ointment 1 appl topical BID Qty: 22 0RF (DME) FreeStyle Lite Strips Strip See Rx Instructions .ROUTE .MEDSUPPLY Qty: 100 11RF Rx Instructions: 4x daily (DME) blood-glucose meter [FreeStyle Lite Meter] Kit See Rx Instructions .Route Qty: 1 0RF Rx Instructions: As directed (DME) lancets [FreeStyle Lancets] 28 gauge misc See Rx Instructions .ROUTE .MEDSUPPLY Qty: 100 11RF Rx Instructions: 4x daily levothyroxine 150 mcg tablet 150 mcg PO DAILY 30 Days Qty: 30 3RF metformin 1,000 mg tablet 1,000 mg PO BID 30 Days Qty: 60 11RF Trulicity 3 mg/0.5 mL pen injector 3 mg subcut QWEEK 30 Days Qty: 2.5 11RF amlodipine 5 mg tablet 5 mg PO DAILY Qty: 90 3RF pyridostigmine bromide 180 mg tablet extended release 180 mg PO 0800,1300,1900,2000 rosuvastatin 40 mg tablet 40 mg PO BEDTIME Referrals: Bernadette De Souza MD [Primary Care Provider] - Sushil Capone MD [Physician] -
[2022-01-14 03:06] LABS: MANUAL DIFF FLAG NO
[2022-01-14 03:07] LABS: Basophils Percent Auto 0.4 % (0-2); Eosinophils Absolute Auto 0.3 X10*3/uL (0.0-0.4); Eosinophils Percent Auto 2.4 % (0-4); Hematocrit 39.8 % (37.0-47.0); Hemoglobin 13.3 g/dl (12.0-16.0); Imm Gran Abs Auto 0.03 X10*3/uL (0.00-0.03); Imm Gran Pct Auto 0.3 % (0.0-0.4); Lymphocytes Absolute Auto 2.8 X10*3/uL (1.2-4.9); Lymphocytes Percent Auto 26.3 % (20-40); Mean Corpuscular HGB Conc 33.4 g/dl (31.0-35.0); Mean Corpuscular Hemoglobin 28.7 pg (27.0-33.0); Mean Corpuscular Volume 85.8 fL (80.0-98.0); Mean Platelet Volume 10.3 fL (9.4-12.3); Monocytes Percent Auto 9.3 % (2-11); Neutrophils Absolute Auto 6.6 x10*3/uL (2.0-8.3); Neutrophils Percent Auto 61.3 % (45-73); Platelet Count 322 X10*3/uL (160-400); Red Blood Count 4.64 X10*6/uL (4.20-5.50); Red Cell Distribution Width 13.9 % (11.0-16.0); White Blood Count 10.7 X10*3/uL (4.8-10.8)
[2022-01-14 03:22] LABS: INTERNATIONAL NORM RATIO 1.1 (0.9-1.1); Prothrombin Time 12.1 SEC (10.0-13.1)
[2022-01-14 03:53] LABS: Anion Gap 16 (12-20); Blood Urea Nitrogen 13 mg/dL (9-16); Carbon Dioxide 22 mmol/L (22-29); Chloride 106 mmol/L (96-108); Creatinine Clr Calc Pharmacy 64.8; Estimated Glomerular Filt Rate > 60; Glucose Random 126 mg/dL (60-115); Potassium 3.6 mmol/L (3.3-5.1); Sodium 140 mmol/L (135-145)
[2022-01-14 04:24] VITALS: BP 169/78; PULSE 76; RESP 16; TEMP 36.4; O2SAT 98
[2022-01-14 05:42] VITALS: BP 176/91; PULSE 79; RESP 16; TEMP 36.6; O2SAT 98
[2022-01-14] MEDS: HYDROmorphone HCl 2 MG TABLET PO (06:06)
== END 2022-01-14 07:46 | disposition home or self-care (01) ==
PROVIDERS: Emergency Provider Emergency Medicine; PCP Internal Medicine
DX: T82.898A Other specified complication of vascular prosthetic devices, implants and grafts, initial encounter (principal); Y82.8 Other medical devices associated with adverse incidents; Y92.9 Unspecified place or not applicable; I80.02 Phlebitis and thrombophlebitis of superficial vessels of left lower extremity; M79.662 Pain in left lower leg; I10 Essential (primary) hypertension; E11.9 Type 2 diabetes mellitus without complications; E78.5 Hyperlipidemia, unspecified; Z79.4 Long term (current) use of insulin; Z79.02 Long term (current) use of antithrombotics/antiplatelets; Z79.899 Other long term (current) drug therapy
CPT/HCPCS: 36415; 80048; 85025; 85610; 85730; 93926; 93971; 99284

== ENCOUNTER 2022-02-21 09:21 | Outpatient (REF) | payer OTHER, SELFPAY ==
[2022-02-21 12:12] LABS: Free T4 (Free Thyroxine) 0.83 ng/dL (0.71-1.85)
[2022-02-21 12:13] LABS: Thyroid Stimulating Hormone 20.15 uIU/mL (0.32-4.0); Vitamin D 25-OH Total 27.5 ng/mL (>30)
[2022-02-21 12:29] LABS: Folate 11.7 ng/mL (> or = 4.0); Vitamin B12 189 pg/mL (200-900)
== END 2022-02-21 09:22 | disposition home or self-care (01) ==
LOC: HO.HMGCLDS 09:21
PROVIDERS: Absent Provider Internal Medicine; PCP Internal Medicine; Visit Provider Internal Medicine
DX: N95.9 Unspecified menopausal and perimenopausal disorder (principal); E89.0 Postprocedural hypothyroidism; E53.8 Deficiency of other specified B group vitamins
CPT/HCPCS: 36415; 82306; 82607; 82746; 84439; 84443

== ENCOUNTER 2022-02-26 09:43 | Outpatient (REF) | payer OTHER, SELFPAY | END 2022-02-26 09:44 | disposition home or self-care (01) | LOC: HO.LNP 09:43 | PROVIDERS: Visit Provider Emergency Medicine | DX: T14.8XXA Other injury of unspecified body region, initial encounter (principal) | CPT/HCPCS: 87071; 87077; 87186; 87205 ==

== ENCOUNTER 2022-03-09 23:13 | Emergency (ER) | payer OTHER, SELFPAY ==
--- NOTE | ~2022-03-09 | XR_ITS ---
EXAMINATION: XR FOOT, LEFT CLINICAL INFORMATION: Pain. Status post fifth toe amputation. COMPARISON: None TECHNIQUE: AP, lateral, and oblique views of the left foot. FINDINGS: Amputation of the fifth digit from the metatarsal neck. No fracture or dislocation. Alignment maintained. Joint spaces are maintained. No osseous erosion. The soft tissues appear unremarkable. XR/XR foot LT min 3V IMPRESSION: No acute abnormality. Fifth digit amputation from the metatarsal neck.
[2022-03-09 23:30] VITALS: BP 166/87; BP 172/90; PULSE 88; PULSE 93; RESP 18; O2SAT 97; BMI 26.9
--- NOTE | 2022-03-10 00:03 | ED_ITS ---
HPI - Extremity Problem General Chief complaint: Extremity Problem Stated complaint: ?post surgical infection to foot Time Seen by Provider: 03/09/22 23:58 Source: patient Mode of arrival: EMS History of Present Illness HPI Narrative: 67-year-old female with history of diabetes is brought in by EMS for left foot pain that she states has worsened since her surgery in December of this year where in she had the 5th left toe removed because it was black . Patient has been started on antibiotics but she states that is not working and states that the redness and pain have increased. She denies any associated fever chills. Related Data Home Medications Medication Instructions Recorded Confirmed mycophenolate mofetil 500 mg tablet 1,000 mg PO TID@0800,1300,1900 02/28/21 03/03/22 insulin glargine 100 unit/mL (3 12 unit subcut BEDTIME 10/24/21 03/03/22 mL) subcutaneous pen (Lantus Solostar U-100 Insulin) pyridostigmine bromide 180 mg 180 mg PO 0800,1300,1900,199910/24/21 03/03/22 tablet,extended release dicyclomine 20 mg tablet 1 tab PO QID PRN Gastrointestinal 10/25/21 03/03/22 Spasms Or Cramping hydrochlorothiazide 25 mg tablet 25 mg PO DAILY@199910/25/21 03/03/22 Previous Rx's Medication Instructions Recorded walker #1 ea 11/21/20 pen needle, diabetic 32 gauge x #50 ea 03/29/21 (BD Ultra-Fine Marilee Pen Needle) amlodipine 5 mg tablet 5 mg PO DAILY #90 tabs 09/02/21 blood sugar diagnostic (FreeStyle #100 ea 09/09/21 Lite Strips) blood-glucose meter (FreeStyle #1 ea 09/09/21 Lite Meter kit) lancets 28 gauge (FreeStyle #100 ea 09/09/21 Lancets) mupirocin 2 % topical ointment 1 appl topical BID #22 grams 10/10/21 clopidogrel 75 mg tablet (Plavix) 75 mg PO DAILY #90 tabs 12/04/21 dulaglutide 3 mg/0.5 mL 3 mg (0.5 mL) subcut QWEEK 30 days 12/11/21 subcutaneous pen injector #2.5 mL (Trulicity) metformin 1,000 mg tablet 1,000 mg PO BID 30 days #60 tabs 12/11/21 hydromorphone 2 mg tablet 2 mg PO Q6H PRN pain #20 tabs 01/14/22 (Dilaudid) ramipril 10 mg capsule 10 mg PO DAILY #30 caps 01/21/22 rosuvastatin 40 mg tablet 40 mg PO DAILY 90 days #90 tabs 01/25/22 levothyroxine 150 mcg tablet 150 mcg PO DAILY 30 days #30 tabs 01/27/22 oxycodone 5 mg tablet 5 mg PO BID PRN pain #10 tabs 02/26/22 cholecalciferol (vitamin D3) 1,250 1,250 mcg PO QWEEK 3 months #13 03/03/22 mcg (50,000 unit) capsule caps cyanocobalamin (vitamin B-12) See Rx Instructions IM QWEEK #10 mL 03/03/22 1,000 mcg/mL injection solution oxycodone 5 mg tablet 5 mg PO DAILY PRN pain, severe #7 03/03/22 tabs cefdinir 300 mg capsule 300 mg PO Q12H 10 days #20 caps 03/07/22 Allergies Allergy/AdvReac Type Severity Reaction Status Date / Time Penicillins [PCN] Allergy Unknown RASH Verified 03/03/22 09:43 gabapentin AdvReac Unknown Dizziness Verified 03/03/22 09:43 Review of Systems Review of Systems: Pertinent positives and negatives as stated in HPI 10 point review of systems is otherwise negative. [facility] Past Medical History Source: nursing notes reviewed Medical History Chronic low back pain Colitis without complication COVID-19 vaccine series declined History of amputation of toe History of CVA (cerebrovascular accident) (~10/2020) History of kidney stones HLD (hyperlipidemia) HTN (hypertension) Hypercalcemia Hypothyroidism Kidney calculi Microalbuminuria Multinodular thyroid Myasthenia gravis Myasthenia gravis Occlusion of stent of peripheral artery Pain in left foot Pain in left lower leg Pain of plantar aspect of heel Pernicious anemia Personal history of nicotine dependence T2DM (type 2 diabetes mellitus) Tubular adenoma of colon Ureteral stone with hydronephrosis Urge urinary incontinence Vitamin B12 deficiency Vitamin D deficiency Surgical History History of bilateral cataract extraction (~2019) History of colonoscopy History of esophagogastroduodenoscopy (EGD) History of hernia repair History of hysterectomy (~1984) History of lithotripsy (~2013) History of parathyroidectomy Hx of blood clots Status post biopsy of thyroid gland (~2021) Family History Family History Father Lung cancer Mother Asthma Diabetes HTN (hypertension) Heart attack Sister FH: mental illness Leukemia Mental health disorder Social History Social History Household Members: None Housing: Apartment Alcohol intake: current Alcohol intake frequency: does not drink Patient Tobacco Use Status: Former Tobacco user Tobacco use type: Cigarette Years Smoked: 45 +/- e-Cigarette/Vaping Use: Never Used Advance Directives: Yes Advance Directives on File: Yes Advance Directives Date on File: 03/03/22 service: No Current occupational status: disabled Cognitive needs: No Hearing needs: No Vision needs: No Physical Exam Vital Signs: Vital Signs: Last Vital Signs Pulse 93 03/09/22 23:30 Resp 18 03/09/22 23:30 BP 172/90 H 03/09/22 23:30 Pulse Ox 97 03/09/22 23:30 O2 Del Method 03/09/22 23:30 BMI result Body Mass Index 26.9 VITAL SIGNS: Reviewed. GENERAL: Well developed, well nourished, in no acute distress. HEAD: Normocephalic/atraumatic EYES: PERRLA, EOMI EARS: Ext canals without abnormality OROPHARYNX: no oral lesions noted, posterior pharynx clear LUNGS: Normal breath sounds. No adventitious sounds or accessory muscle use. SpO2<97> CARDIOVASCULAR: Regular rate and rhythm without noted murmur ABDOMEN: Soft, non-tender, non-distended with bowel sounds. MUSCULOSKELETAL: No tenderness, deformities, or effusions noted on gross inspection. EXTREMITIES: No cyanosis, clubbing or edema; LEFT FOOT: Nonhealing wound li inessa at the site of the surgery, no tushar pus coming from the wound. SKIN: Inspection of the skin reveals no rashes NEUROLOGIC: Alert and oriented x 4. Strength and sensation to light touch were grossly intact x 4. Course Course Course Narrative: 67-year-old female with history and clinical presentation consistent with nonhealing wound, currently on antibiotics but experiencing a significant amount of pain. Review of x-ray and lab work without acute findings. Patient will be provided with a referral to the [facility] and she was strongly encouraged to follow-up with her primary care provider. MDM - Extremity (Nontraumatic) Lab Data Result diagrams: 03/10/22 00:22 03/10/22 00:22 Labs: Lab Results 03/10/22 03/10/22 Range/Units 00:22 00:22 WBC 8.0 (4.8-10.8) X10*3/uL RBC 4.40 (4.20-5.50) X10*6/uL Hgb 12.3 (12.0-16.0) g/dl Hct 37.9 (37.0-47.0) % MCV 86.1 (80.0-98.0) fL MCH 28.0 (27.0-33.0) pg MCHC 32.5 (31.0-35.0) g/dl RDW 15.9 (11.0-16.0) % Plt Count 308 (160-400) X10*3/uL MPV 10.3 (9.4-12.3) fL Immature Gran % (Auto) 0.1 (0.0-0.4) % Neut % (Auto) 47.3 (45-73) % Lymph % (Auto) 38.5 (20-40) % Mcmullen % (Auto) 11.1 H (2-11) % Eos % (Auto) 2.5 (0-4) % Baso % (Auto) 0.5 (0-2) % Lymph # (Auto) 3.1 (1.2-4.9) X10*3/uL Mcmullen # (Auto) 0.9 (0.1-1.2) X10*3/uL Eos # (Auto) 0.2 (0.0-0.4) X10*3/uL Baso # (Auto) 0.0 (0.0-0.2) X10*3/uL Abs Immat Gran (auto) 0.01 (0.00-0.03) X10*3/uL Absolute Neuts (auto) 3.8 (2.0-8.3) x10*3/uL Absolute Nucleated RBC 0.000 (0.0-0.012) X10*3/uL Nucleated RBC % (auto) 0.0 (0.0-0.2) /100WBC Sodium 139 (135-145) mmol/L Potassium 3.8 (3.3-5.1) mmol/L Chloride 107 (96-108) mmol/L Carbon Dioxide 23 (22-29) mmol/L Anion Gap 13 (12-20) BUN 16 (9-16) mg/dL Creatinine 0.84 (0.5-1.4) mg/dL Estim Creat Clear Calc 59.0 Estimated GFR > 60 Random Glucose 248 H (60-115) mg/dL Calcium 9.5 (8.4-10.2) mg/dL Total Bilirubin < 0.2 (0.0-1.0) mg/dL AST 15 (5-31) U/L ALT 18 (0-31) U/L Alkaline Phosphatase 86 (39-117) U/L Total Protein 6.7 (6.5-8.0) g/dL Albumin 4.1 (3.5-5.0) g/dL Discharge Plan Discharge Clinical Impression: Non-healing wound of left lower extremity, Diabetes Patient Disposition: Home, Self-Care Instructions: Diabetes and Your Skin (ED), Foot Care for People with Diabetes (ED), Wound Healing and Your Diet (ED) Additional Instructions: 1. Resume all home medications as prescribed. 2. Complete the entire course of antibiotics. 3. You have been provided with a referral to follow-up with [facility] please call them in the morning. Return to the ER for worsening symptoms. Prescriptions: No Action [facility]DME[facility] See Rx Instructions .ROUTE .MEDSUPPLY Qty: 1 0RF Rx Instructions: walker with seat and hand brakes (DME) pen needle, diabetic [BD Ultra-Fine Marilee Pen Needle] 32 gauge x 5/32 needle See Rx Instructions .ROUTE .MEDSUPPLY Qty: 50 10RF Rx Instructions: As directed once daily ramipril 10 mg capsule 10 mg PO DAILY Qty: 30 0RF rosuvastatin 40 mg tablet 40 mg PO DAILY 90 Days Qty: 90 3RF levothyroxine 150 mcg tablet 150 mcg PO DAILY 30 Days Qty: 30 11RF cefdinir 300 mg capsule 300 mg PO Q12H 10 Days Qty: 20 0RF clopidogrel [Plavix] 75 mg tablet 75 mg PO DAILY Qty: 90 1RF hydromorphone [Dilaudid] 2 mg tablet 2 mg PO Q6H PRN (Reason: pain) Qty: 20 0RF Rx Instructions: Partial Fill upon patient request. Lantus Solostar U-100 Insulin 100 unit/mL (3 mL) insulin pen 12 unit subcut BEDTIME dicyclomine 20 mg tablet 1 tab PO QID PRN (Reason: Gastrointestinal Spasms Or Cramping) hydrochlorothiazide 25 mg tablet 25 mg PO DAILY@2000 cyanocobalamin (vitamin B-12) 1,000 mcg/mL solution See Rx Instructions IM QWEEK Qty: 10 0RF Rx Instructions: intramuscularly every week for 4 weeks , then monthly afterwards cholecalciferol (vitamin D3) 1,250 mcg (50,000 unit) capsule 1,250 mcg PO QWEEK 90 Days Qty: 13 0RF oxycodone 5 mg tablet 5 mg PO DAILY PRN (Reason: pain, severe) Qty: 7 0RF Rx Instructions: Partial Fill upon patient request. mycophenolate mofetil 500 mg tablet 1,000 mg PO TID@0800,1300,1900 mupirocin 2 % ointment 1 appl topical BID Qty: 22 0RF oxycodone 5 mg tablet 5 mg PO BID PRN (Reason: pain) Qty: 10 0RF Rx Instructions: Partial Fill upon patient request. (DME) FreeStyle Lite Strips Strip See Rx Instructions .ROUTE .MEDSUPPLY Qty: 100 11RF Rx Instructions: 4x daily (DME) blood-glucose meter [FreeStyle Lite Meter] Kit See Rx Instructions .Route Qty: 1 0RF Rx Instructions: As directed (DME) lancets [FreeStyle Lancets] 28 gauge misc See Rx Instructions .ROUTE .MEDSUPPLY Qty: 100 11RF Rx Instructions: 4x daily metformin 1,000 mg tablet 1,000 mg PO BID 30 Days Qty: 60 11RF Trulicity 3 mg/0.5 mL pen injector 3 mg subcut QWEEK 30 Days Qty: 2.5 11RF amlodipine 5 mg tablet 5 mg PO DAILY Qty: 90 3RF pyridostigmine bromide 180 mg tablet extended release 180 mg PO 0800,1300,1900,1999 Referrals: [facility] [place] [Outside] (Left 5th MT wound s/p toe removal 12/2021)
[2022-03-10 00:28] LABS: Basophils Percent Auto 0.5 % (0-2); Eosinophils Absolute Auto 0.2 X10*3/uL (0.0-0.4); Eosinophils Percent Auto 2.5 % (0-4); Hematocrit 37.9 % (37.0-47.0); Hemoglobin 12.3 g/dl (12.0-16.0); Imm Gran Abs Auto 0.01 X10*3/uL (0.00-0.03); Imm Gran Pct Auto 0.1 % (0.0-0.4); Lymphocytes Absolute Auto 3.1 X10*3/uL (1.2-4.9); Lymphocytes Percent Auto 38.5 % (20-40); MANUAL DIFF FLAG NO; Mean Corpuscular HGB Conc 32.5 g/dl (31.0-35.0); Mean Corpuscular Volume 86.1 fL (80.0-98.0); Mean Platelet Volume 10.3 fL (9.4-12.3); Monocytes Absolute Auto 0.9 X10*3/uL (0.1-1.2); Monocytes Percent Auto 11.1 % (2-11); Neutrophils Absolute Auto 3.8 x10*3/uL (2.0-8.3); Neutrophils Percent Auto 47.3 % (45-73); Platelet Count 308 X10*3/uL (160-400); Red Cell Distribution Width 15.9 % (11.0-16.0)
[2022-03-10 00:47] LABS: Alanine Aminotransferase 18 U/L (0-31); Albumin Level 4.1 g/dL (3.5-5.0); Alkaline Phosphatase 86 U/L (39-117); Anion Gap 13 (12-20); Aspartate Amino Transferase 15 U/L (5-31); Bilirubin Total < 0.2 mg/dL (0.0-1.0); Blood Urea Nitrogen 16 mg/dL (9-16); Calcium 9.5 mg/dL (8.4-10.2); Carbon Dioxide 23 mmol/L (22-29); Chloride 107 mmol/L (96-108); Estimated Glomerular Filt Rate > 60; Glucose Random 248 mg/dL (60-115); Potassium 3.8 mmol/L (3.3-5.1); Sodium 139 mmol/L (135-145); Total Protein 6.7 g/dL (6.5-8.0)
[2022-03-10] MEDS: oxyCODONE HCl Immed Release 5 MG TABLET PO (00:50)
[2022-03-10] MEDS: Acetaminophen 325 MG TABLET 975 MG PO (00:50)
== END 2022-03-10 01:45 | disposition home or self-care (01) ==
PROVIDERS: Emergency Provider Student in an Organized Health Care Education/Training Program
DX: M79.672 Pain in left foot (principal); E11.9 Type 2 diabetes mellitus without complications; Z79.899 Other long term (current) drug therapy; Z87.891 Personal history of nicotine dependence; Z79.4 Long term (current) use of insulin
CPT/HCPCS: 36415; 73630; 80053; 85025; 99283

== ENCOUNTER 2022-03-14 08:04 | Outpatient (RCR) | payer OTHER, SELFPAY | END 2022-05-02 15:00 | disposition home or self-care (01) | LOC: HO.WCC 08:04 | PROVIDERS: PCP Internal Medicine; Visit Provider Physician Assistant | DX: E11.621 Type 2 diabetes mellitus with foot ulcer (principal); E11.51 Type 2 diabetes mellitus with diabetic peripheral angiopathy without gangrene; L97.522 Non-pressure chronic ulcer of other part of left foot with fat layer exposed; T87.81 Dehiscence of amputation stump; I10 Essential (primary) hypertension; Z89.422 Acquired absence of other left toe(s); Z86.73 Personal history of transient ischemic attack (TIA), and cerebral infarction without residual deficits; Z87.891 Personal history of nicotine dependence | CPT/HCPCS: 11042; 97597; 99212; 99213 ==

== ENCOUNTER 2022-03-21 12:05 | Outpatient (REF) | payer OTHER, SELFPAY ==
--- NOTE | ~2022-03-21 | MM_ITS ---
EXAMINATION: MM SCREENING DIGITAL BREAST TOMOSYNTHESIS, BILATERAL CLINICAL INFORMATION: Screening. Asymptomatic. The lifetime risk of breast cancer based on the Tyrer-Cuzick Model is 4%. COMPARISON: Mammography: 03/07/2021, 12/01/2019, 06/03/2019 TECHNIQUE: Digital breast tomosynthesis is performed in both the craniocaudal and mediolateral oblique views along with computer-aided detection (CAD). Synthesized 2D images are generated from the tomosynthesis. FINDINGS: The breasts are almost entirely fatty (ACR BI-RADS breast composition Category a). Parenchymal pattern is similar to prior studies. Again, there is a stable nodule likely intramammary node posterior upper outer left breast and grouped dermal calcifications posterior inferior medial left breast. Neither breast shows developing density or interval architectural abnormality or abnormal calcifications. The axilla are unremarkable. MM/MM tomosynthesis screening BI IMPRESSION: No mammographic evidence of malignancy. ASSESSMENT: BI-RADS 2: Benign RECOMMENDATION: Routine annual mammography screening. This patient's information was entered into a reminder system with a target due date for their next mammogram.
== END 2022-03-21 12:06 | disposition home or self-care (01) ==
LOC: HO.MAMMO 12:05
PROVIDERS: PCP Internal Medicine; Visit Provider Internal Medicine
DX: Z12.31 Encounter for screening mammogram for malignant neoplasm of breast (principal)
CPT/HCPCS: 77063; 77067

== ENCOUNTER 2022-04-19 09:51 | Outpatient (REF) | payer OTHER, SELFPAY ==
[2022-04-19 11:31] LABS: Cholesterol 224 mg/dL; HDL Cholesterol 51 mg/dL; LDL Cholesterol Calculated 141 mg/dl; Triglycerides 162 mg/dL
[2022-04-19 11:32] LABS: Estimated Average Glucose 189 mg/dL; Hemoglobin A1c % 8.2 %
[2022-04-19 11:52] LABS: Free T4 (Free Thyroxine) 1.52 ng/dL (0.71-1.85); Thyroid Stimulating Hormone 0.17 uIU/mL (0.32-4.0)
[2022-04-19 12:30] LABS: Creatinine Urine 98.81 mg/dL; Microalbum/Creatinine Ratio Ur 101.2 ug/mg cr
== END 2022-04-19 09:52 | disposition home or self-care (01) ==
LOC: HO.HMGCLDS 09:51
PROVIDERS: Absent Provider Internal Medicine; PCP Internal Medicine; Visit Provider Internal Medicine
DX: D51.0 Vitamin B12 deficiency anemia due to intrinsic factor deficiency (principal); E11.65 Type 2 diabetes mellitus with hyperglycemia; E89.0 Postprocedural hypothyroidism; E78.5 Hyperlipidemia, unspecified
CPT/HCPCS: 36415; 80061; 82043; 83036; 84439; 84443

== ENCOUNTER → 2022-04-21 12:19 | Outpatient (BNVA) | payer OTHER, SELFPAY | PROVIDERS: PCP Internal Medicine; Visit Provider Internal Medicine | DX: E11.65 Type 2 diabetes mellitus with hyperglycemia (principal); E89.0 Postprocedural hypothyroidism; E83.52 Hypercalcemia; E78.5 Hyperlipidemia, unspecified; I10 Essential (primary) hypertension; E04.2 Nontoxic multinodular goiter; E55.9 Vitamin D deficiency, unspecified | CPT/HCPCS: Q3014 ==

== ENCOUNTER 2022-05-22 13:39 | Outpatient (RCR) | payer OTHER, SELFPAY | END 2022-06-03 11:57 | disposition home or self-care (01) | LOC: HO.WCC 13:39 | PROVIDERS: PCP Internal Medicine; Visit Provider Surgery | DX: Z09 Encounter for follow-up examination after completed treatment for conditions other than malignant neoplasm (principal); I10 Essential (primary) hypertension; I73.9 Peripheral vascular disease, unspecified; E11.9 Type 2 diabetes mellitus without complications; Z86.73 Personal history of transient ischemic attack (TIA), and cerebral infarction without residual deficits; Z89.422 Acquired absence of other left toe(s); Z87.891 Personal history of nicotine dependence | CPT/HCPCS: 99212 ==

== ENCOUNTER 2022-06-23 13:59 | Outpatient (REF) | payer OTHER, SELFPAY ==
--- NOTE | ~2022-06-23 | US_ITS ---
EXAMINATION: US THYROID CLINICAL INFORMATION: Postprocedural hypothyroidism. COMPARISON: US-guided thyroid biopsy 07/04/2021. Ultrasound thyroid 11/09/2020 and 06/05/2020. CT soft tissue neck without contrast 06/05/2020. US-guided thyroid biopsy TECHNIQUE: Linear transducer grayscale and color Doppler examination with attention to the region of the thyroid. FINDINGS: SIZE: Measurements of the thyroid lobes and nodules are given in sagittal, anteroposterior and transverse dimensions respectively. Right Thyroid Lobe: 2.9 x 1.2 x 1.2 cm, volume 2.2 mL. Previously 3.6 x 1.4 x 1.2 cm, volume 3.2 mL. Parenchyma: The gland echotexture is heterogeneous. Thyroid vascularity is normal. Left Thyroid Lobe: 3.2 x 1.3 x 1.0 cm, volume 2.2 mL. Previously 3.6 x 1.7 x 1.5 cm, volume 4.8 mL. Parenchyma: The gland echotexture is heterogeneous. Thyroid vascularity is normal. Isthmus: 0.2 cm in maximum AP dimension. Previously 0.2 cm. Estimated total number of nodules greater than or equal to 1 cm: 1. Case Management Manager nodules are described as follows: 1. Location: Right superior. Size: 0.26 x 0.18 x 0.26 cm, volume 0.005 mL. Previously: 0.4 x 0.2 x 0.2 cm, volume 0.01 mL. Nodule characteristics: Composition: Solid (2). Echogenicity: Hyperechoic (1). Shape: Not taller than wide (0). Margins: Smooth (0). Echogenic Foci: Macrocalcifications (1). ACR TI-RADS total points: 4 Previous: 4 ACR TI-RADS category: 4 Previous: 4 Significant change in size (>/= 20% in 2 dimensions and minimal increase of 2 mm or 50% or greater increase in volume): None. Change in features: None. Change in ACR TI-RADS risk category: No change. 2. Location: Right mid. Size: 0.42 x 0.38 x 0.41 cm, volume 0.034 mL. Previously: 0.5 x 0.5 x 0.4 cm, volume 0.05 mL. Nodule characteristics: Composition: Solid (2). Echogenicity: Isoechoic (1). Shape: Not taller than wide (0). Margins: Smooth (0). Echogenic Foci: None (0). ACR TI-RADS total points: 3 Previous: 6 ACR TI-RADS category: 3 Previous: 4 Significant change in size (>/= 20% in 2 dimensions and minimal increase of 2 mm or 50% or greater increase in volume): None. Change in features: None. Change in ACR TI-RADS risk category: Improved. 3. Location: Right inferior. Size: 1.2 x 0.9 x 0.9 cm, volume 0.39 mL. Previously: 1.3 x 1.0 x 0.9 cm, volume 0.6 mL. Nodule characteristics: Composition: Solid (2). Echogenicity: Isoechoic (1). Shape: Not taller than wide (0). Margins: Smooth (0). Echogenic Foci: Peripheral calcifications (2). ACR TI-RADS total points: 5 Previous: 11 ACR TI-RADS category: 4 Previous: 5 Significant change in size (>/= 20% in 2 dimensions and minimal increase of 2 mm or 50% or greater increase in volume): No change. Change in features: No change. Change in ACR TI-RADS risk category: Decreased. 4. Location: Left superior. Size: 0.5 x 0.5 x 0.4 cm, volume 0.03 mL. Previously: 1.3 x 0.5 x 0.5 cm, volume 0.2 mL. Nodule characteristics: Composition: Solid (2). Echogenicity: Hyperechoic (1). Shape: Not taller than wide (0). Margins: Smooth (0). Echogenic Foci: Macrocalcifications (1). ACR TI-RADS total points: 4 Previous: 5 ACR TI-RADS category: 4 Previous: 4 Significant change in size (>/= 20% in 2 dimensions and minimal increase of 2 mm or 50% or greater increase in volume): Decreased. Change in features: None. Change in ACR TI-RADS risk category: Decreased. 5. Location: Left mid. Size: 0.7 x 0.6 x 0.3 cm, volume 0.06 mL. Previously: 0.6 x 0.3 x 0.3 cm, volume 0.02 mL. Nodule characteristics: Composition: Solid (2). Echogenicity: Hyperechoic (1). Shape: Not taller than wide (0). Margins: Ill-defined (0). Echogenic Foci: Macrocalcifications (1). ACR TI-RADS total points: 4 Previous: 4 ACR TI-RADS category: 4 Previous: 4 Significant change in size (>/= 20% in 2 dimensions and minimal increase of 2 mm or 50% or greater increase in volume): No change. Change in features: No change. Change in ACR TI-RADS risk category: No change. NODES: No lymphadenopathy is seen in the tissue surrounding the thyroid gland. US/US thyroid IMPRESSION: 1. Improved appearance of the thyroid gland. There are multiple thyroid nodules. 2. TR1 (0 point) and TR 2 (2 points): 3. TR4 (4-6 points): FNA if more than or equal to 1.5 cm in maximum dimension, followup ultrasound in 1, 2, 3 and 5 years if 1 to 1.4 cm in maximum dimension. 4. TR5 (more than or equal to 7 points): FNA if more than or equal to 1 cm in maximum dimension, followup ultrasound every year for 5 years if 0.5 to 0.9 cm in maximum dimension.
== END 2022-06-23 14:00 | disposition home or self-care (01) ==
LOC: HO.HMGCX 13:59
PROVIDERS: PCP Internal Medicine; Visit Provider Internal Medicine
DX: E04.2 Nontoxic multinodular goiter (principal); E89.0 Postprocedural hypothyroidism
CPT/HCPCS: 76536

== ENCOUNTER 2022-07-15 09:41 | Outpatient (REF) | payer OTHER, SELFPAY ==
[2022-07-15 11:39] LABS: MANUAL DIFF FLAG NO
[2022-07-15 11:59] LABS: Basophils Percent Auto 0.6 % (0-2); Eosinophils Absolute Auto 0.1 X10*3/uL (0.0-0.4); Hematocrit 45.1 % (37.0-47.0); Imm Gran Abs Auto 0.03 X10*3/uL (0.00-0.03); Imm Gran Pct Auto 0.4 % (0.0-0.4); Lymphocytes Absolute Auto 2.1 X10*3/uL (1.2-4.9); Lymphocytes Percent Auto 29.1 % (20-40); Mean Corpuscular HGB Conc 33.3 g/dl (31.0-35.0); Mean Corpuscular Hemoglobin 28.1 pg (27.0-33.0); Mean Corpuscular Volume 84.6 fL (80.0-98.0); Mean Platelet Volume 11.6 fL (9.4-12.3); Monocytes Absolute Auto 0.6 X10*3/uL (0.1-1.2); Monocytes Percent Auto 8.8 % (2-11); Neutrophils Absolute Auto 4.2 x10*3/uL (2.0-8.3); Neutrophils Percent Auto 59.1 % (45-73); Platelet Count 301 X10*3/uL (160-400); Red Blood Count 5.33 X10*6/uL (4.20-5.50); Red Cell Distribution Width 15.7 % (11.0-16.0)
[2022-07-15 12:22] LABS: Alanine Aminotransferase 15 U/L (0-31); Albumin Level 4.2 g/dL (3.5-5.0); Alkaline Phosphatase 91 U/L (39-117); Anion Gap 14 (12-20); Aspartate Amino Transferase 14 U/L (5-31); Bilirubin Total 0.4 mg/dL (0.0-1.0); Blood Urea Nitrogen 17 mg/dL (9-16); Calcium 10.2 mg/dL (8.4-10.2); Carbon Dioxide 26 mmol/L (22-29); Chloride 102 mmol/L (96-108); Cholesterol 340 mg/dL; Estimated Glomerular Filt Rate > 60; Glucose Random 266 mg/dL (60-115); HDL Cholesterol 54 mg/dL; LDL Cholesterol Calculated 255 mg/dl; Potassium 4.1 mmol/L (3.3-5.1); Sodium 138 mmol/L (135-145); Total Protein 7.2 g/dL (6.5-8.0); Triglycerides 155 mg/dL
[2022-07-15 12:33] LABS: Estimated Average Glucose 243 mg/dL; Hemoglobin A1c % 10.1 %
[2022-07-15 12:39] LABS: Folate 15.1 ng/mL (> or = 4.0); Free T4 (Free Thyroxine) 1.26 ng/dL (0.71-1.85); Thyroid Stimulating Hormone 4.84 uIU/mL (0.32-4.0); Vitamin B12 466 pg/mL (200-900)
[2022-07-15 12:42] LABS: Creatinine Urine 76.52 mg/dL
[2022-07-17 00:09] LABS: LDL Cholesterol Direct 276 mg/dL (<100)
== END 2022-07-15 09:42 | disposition home or self-care (01) ==
LOC: HO.HMGCLDS 09:41
PROVIDERS: Absent Provider Internal Medicine; PCP Internal Medicine; Visit Provider Internal Medicine
DX: E11.65 Type 2 diabetes mellitus with hyperglycemia (principal); E04.2 Nontoxic multinodular goiter; E89.0 Postprocedural hypothyroidism; R42 Dizziness and giddiness
CPT/HCPCS: 36415; 80053; 80061; 82043; 82607; 82746; 83036; 83721; 84439; 84443; 85025

== ENCOUNTER 2022-07-21 09:27 | Outpatient (REF) | payer OTHER, SELFPAY ==
--- NOTE | 2022-07-21 11:59 | PFT_ITS ---
Forced vital capacity 69%, FEV1 76%. FEV1/FVC ratio is 85. FEF 25-75 117% and MVV is 80%. Post bronchodilator therapy, there is no change. Total lung capacity 82%. Residual volume 95%. Diffusion capacity 83%. CONCLUSION: Patient may have a very mild degree of restrictive pulmonary disorder. No obstructive airway disorder. No response to bronchodilator therapy. MD KING Beltrán/ELVAL / [phone]
== END 2022-07-21 09:28 | disposition home or self-care (01) ==
LOC: HO.RESP 09:27
PROVIDERS: PCP Internal Medicine; Visit Provider Internal Medicine
DX: R06.2 Wheezing (principal)
CPT/HCPCS: 94060; 94727; 94729

== ENCOUNTER → 2022-07-24 13:26 | Outpatient (BNVA) | payer OTHER, SELFPAY | PROVIDERS: PCP Internal Medicine; Visit Provider Internal Medicine | DX: E11.65 Type 2 diabetes mellitus with hyperglycemia (principal); E89.0 Postprocedural hypothyroidism; E83.52 Hypercalcemia; E78.5 Hyperlipidemia, unspecified; E04.2 Nontoxic multinodular goiter; E55.9 Vitamin D deficiency, unspecified; I10 Essential (primary) hypertension | CPT/HCPCS: 82947; 99212 ==

== ENCOUNTER 2022-08-02 13:04 | Outpatient (REF) | payer OTHER, SELFPAY ==
[2022-08-02 13:36] LABS: Hematocrit 49.5 % (37.0-47.0); Hemoglobin 15.8 g/dl (12.0-16.0); Mean Corpuscular HGB Conc 31.9 g/dl (31.0-35.0); Mean Corpuscular Hemoglobin 27.4 pg (27.0-33.0); Mean Corpuscular Volume 85.9 fL (80.0-98.0); Mean Platelet Volume 10.6 fL (9.4-12.3); Platelet Count 318 X10*3/uL (160-400); Red Blood Count 5.76 X10*6/uL (4.20-5.50); Red Cell Distribution Width 15.3 % (11.0-16.0); White Blood Count 9.4 X10*3/uL (4.8-10.8)
[2022-08-02 14:00] LABS: Alanine Aminotransferase 20 U/L (0-31); Albumin Level 4.6 g/dL (3.5-5.0); Alkaline Phosphatase 80 U/L (39-117); Anion Gap 15 (12-20); Aspartate Amino Transferase 19 U/L (5-31); Bilirubin Direct < 0.2 mg/dL (0.0-0.5); Bilirubin Total 0.4 mg/dL (0.0-1.0); Blood Urea Nitrogen 13 mg/dL (9-16); Calcium 11.1 mg/dL (8.4-10.2); Carbon Dioxide 27 mmol/L (22-29); Chloride 105 mmol/L (96-108); Estimated Glomerular Filt Rate > 60; Glucose Random 131 mg/dL (60-115); Potassium 3.5 mmol/L (3.3-5.1); Sodium 143 mmol/L (135-145); Total Protein 7.7 g/dL (6.5-8.0)
== END 2022-08-02 13:05 | disposition home or self-care (01) ==
LOC: HO.HMGCLDS 13:04
PROVIDERS: PCP Internal Medicine; Visit Provider Internal Medicine
DX: R10.9 Unspecified abdominal pain (principal)
CPT/HCPCS: 36415; 80048; 80076; 85027

== ENCOUNTER 2022-08-14 12:42 | Outpatient (REF) | payer OTHER, SELFPAY ==
--- NOTE | ~2022-08-14 | US_ITS ---
EXAMINATION: NONINVASIVE ASSESSMENT OF THE ARTERIES OF LEFT LOWER EXTREMITY Clinton Reddy MD CLINICAL INFORMATION: Peripheral vascular disease. TECHNIQUE: Left lower extremity duplex ultrasound was performed with velocity measurements and waveform analysis in the common femoral arteries, profunda femoris arteries, proximal mid and distal superficial femoral arteries, popliteal arteries and tibial vessels. This study was performed only at rest. PVR tracings at the ankle were obtained and ankle brachial indices were calculated. COMPARISON: None. FINDINGS: Velocities in cm/sec and phasicity as well as the presence of plaque are reported below. LEFT LEG: Ankle-brachial index is 0.81. Multiphasic flow is present throughout with the exception of monophasic flow in the posterior tibial artery. A stent is present throughout a large portion of the SFA which is widely patent. PVR waveform at the ankle is blunted. Moderate plaque is present throughout with calcified plaque seen in the left common femoral artery. Areas of velocity acceleration proximal stented SFA which may represent a stenosis along with an area of velocity acceleration in the popliteal artery. Common Femoral: 130 Profunda Femoris: 127 Proximal SFA: Stented: 234 Mid SFA: Stented: 47 Distal SFA: Stented: 34 popliteal: 233 MARKETING CONTENT COORDINATOR: 103 Peroneal: 65 Compared to the study from 01/14/2022, appearances are improved as at that time the SFA stent was occluded. US/US arterial duplex LE LT IMPRESSION: Evidence of peripheral vascular disease with ankle-brachial index of 0.81. An SFA stent is patent. Some areas of velocity acceleration are present in the SFA and the popliteal artery which may represent areas of stenosis.
--- NOTE | ~2022-08-14 | US_ITS ---
EXAMINATION: NONINVASIVE ASSESSMENT OF THE ARTERIES OF LEFT LOWER EXTREMITY Clinton Reddy MD CLINICAL INFORMATION: Peripheral vascular disease. TECHNIQUE: Left lower extremity duplex ultrasound was performed with velocity measurements and waveform analysis in the common femoral arteries, profunda femoris arteries, proximal mid and distal superficial femoral arteries, popliteal arteries and tibial vessels. This study was performed only at rest. PVR tracings at the ankle were obtained and ankle brachial indices were calculated. COMPARISON: None. FINDINGS: Velocities in cm/sec and phasicity as well as the presence of plaque are reported below. LEFT LEG: Ankle-brachial index is 0.81. Multiphasic flow is present throughout with the exception of monophasic flow in the posterior tibial artery. A stent is present throughout a large portion of the SFA which is widely patent. PVR waveform at the ankle is blunted. Moderate plaque is present throughout with calcified plaque seen in the left common femoral artery. Areas of velocity acceleration proximal stented SFA which may represent a stenosis along with an area of velocity acceleration in the popliteal artery. Common Femoral: 130 Profunda Femoris: 127 Proximal SFA: Stented: 234 Mid SFA: Stented: 47 Distal SFA: Stented: 34 popliteal: 233 REGISTRATION SCHEDULING SPECIALIST: 103 Peroneal: 65 Compared to the study from 01/14/2022, appearances are improved as at that time the SFA stent was occluded. US/US SHAN complete IMPRESSION: Evidence of peripheral vascular disease with ankle-brachial index of 0.81. An SFA stent is patent. Some areas of velocity acceleration are present in the SFA and the popliteal artery which may represent areas of stenosis.
== END 2022-08-14 12:43 | disposition home or self-care (01) ==
LOC: HO.US 12:42
PROVIDERS: PCP Internal Medicine; Visit Provider Physician Assistant
DX: I73.9 Peripheral vascular disease, unspecified (principal); E11.621 Type 2 diabetes mellitus with foot ulcer
CPT/HCPCS: 93923; 93926

== ENCOUNTER 2022-09-23 09:05 | Outpatient (REF) | payer OTHER, SELFPAY ==
[2022-09-23 11:35] LABS: Appearance Urine Clear; Color Urine Yellow; Glucose Urine UA Negative (Negative); Leukocyte Esterase Urine Small (1+) (Negative); Nitrite Urine Negative (Negative); UMIC TRIGGER UA YES; Urine Blood Negative (Negative); Urine Ketones Negative (Negative); Urine Protein Negative (Neg-Trace)
[2022-09-23 11:41] LABS: Baso%MD 0.5 %; Eos%MD 2.6 %; Hemoglobin 15.8 g/dl (12.0-16.0); IG%MD 0.2 %; Lymph%MD 30.9 %; Mean Corpuscular HGB Conc 32.9 g/dl (31.0-35.0); Mean Corpuscular Hemoglobin 28.2 pg (27.0-33.0); Mean Corpuscular Volume 85.7 fL (80.0-98.0); Mean Platelet Volume 11.1 fL (9.4-12.3); Mono%MD 9.5 %; Neut%MD 56.3 %; Platelet Count 333 X10*3/uL (160-400); Red Cell Distribution Width 14.8 % (11.0-16.0)
[2022-09-23 11:53] LABS: Bacteria Urine None Seen (None Seen); Calcium Oxalate Crystals Urine Present; Hyaline Casts Urine 0-2 /LPF (0-2); RBC Urine 0-2 /HPF (0-2); Squamous Epithelial Cell Urine 0-2 /HPF (0-2); WBC Urine 0-5 /HPF (0-5)
[2022-09-23 12:03] LABS: Albumin Level 4.6 g/dL (3.5-5.0); Anion Gap 13 (12-20); Calcium 10.7 mg/dL (8.4-10.2); Carbon Dioxide 27 mmol/L (22-29); Chloride 102 mmol/L (96-108); Magnesium 1.9 mg/dL (1.6-2.6); Phosphorus 3.1 mg/dL (2.7-4.5); Potassium 4.6 mmol/L (3.3-5.1); Sodium 137 mmol/L (135-145)
[2022-09-23 12:10] LABS: Alanine Aminotransferase 21 U/L (0-31); Albumin Level 4.6 g/dL (3.5-5.0); Alkaline Phosphatase 72 U/L (39-117); Anion Gap 12 (12-20); Aspartate Amino Transferase 19 U/L (5-31); Bilirubin Total 0.5 mg/dL (0.0-1.0); Blood Urea Nitrogen 16 mg/dL (9-16); Calcium 10.7 mg/dL (8.4-10.2); Carbon Dioxide 27 mmol/L (22-29); Chloride 102 mmol/L (96-108); Cholesterol 144 mg/dL; Estimated Glomerular Filt Rate > 60; Glucose Random 127 mg/dL (60-115); HDL Cholesterol 42 mg/dL; LDL Cholesterol Calculated 69 mg/dl; Potassium 4.3 mmol/L (3.3-5.1); Sodium 137 mmol/L (135-145); Total Protein 7.4 g/dL (6.5-8.0); Triglycerides 166 mg/dL
[2022-09-23 12:16] LABS: Free T4 (Free Thyroxine) 1.37 ng/dL (0.71-1.85); Thyroid Stimulating Hormone 0.05 uIU/mL (0.32-4.0); Vitamin D 25-OH Total 52.8 ng/mL (>30)
[2022-09-23 12:19] LABS: Blood Urea Nitrogen 16 mg/dL (9-16); Estimated Glomerular Filt Rate > 60
[2022-09-23 12:25] LABS: Creatinine Urine 98.46 mg/dL; Microalbum/Creatinine Ratio Ur 36.5 ug/mg cr; Protein/Creatinine Ratio, Ur 0.14 (<0.2); Total Protein Urine Random 14 mg/dL (<12)
[2022-09-23 12:26] LABS: Vitamin D 25-OH Total 51.1 ng/mL (>30)
[2022-09-23 12:37] LABS: Basophils Abs Manual 0.1 X10*3/uL (0.0-0.2); Basophils Percent Manual 1 % (0-2); Eosinophils Absolute Manual 0.1 X10*3/uL (0.0-0.4); Eosinophils Percent Manual 1 % (0-4); Lymphocytes Absolute Manual 2.5 X10*3/uL (1.2-4.9); Lymphocytes Percent Manual 31 % (20-40); Monocytes Absolute Manual 0.6 X10*3/uL (0.1-1.2); Monocytes Percent Manual 8 % (2-11); Neutrophils Percent Manual 59 % (45-73)
[2022-09-23 12:38] LABS: Burr Cells 3+ (>5) /OIF; Platelet Estimate NORMAL (NORMAL); Platelet Morphology Comment NORMAL; RBC Morphology NOTED
[2022-09-23 14:19] LABS: Band Neutrophils Percent 0 % (3-5); Neutrophils Absolute Manual 4.7 X10*3/uL (2.0-8.3)
[2022-09-24 13:49] LABS: PTHI 44 pg/mL (16-77)
[2022-09-25 07:38] LABS: LDL Cholesterol Direct 72 mg/dL (<100)
== END 2022-09-23 09:06 | disposition home or self-care (01) ==
LOC: HO.HMGCLDS 09:05
PROVIDERS: Internal Medicine Nephrology; Absent Provider Psychiatry & Neurology Neurology; PCP Internal Medicine; Referring Provider Nurse Practitioner Adult Health; Visit Provider Internal Medicine
DX: E11.65 Type 2 diabetes mellitus with hyperglycemia (principal); E11.22 Type 2 diabetes mellitus with diabetic chronic kidney disease; N18.2 Chronic kidney disease, stage 2 (mild); E04.2 Nontoxic multinodular goiter; E89.0 Postprocedural hypothyroidism; E55.9 Vitamin D deficiency, unspecified; I70.293 Other atherosclerosis of native arteries of extremities, bilateral legs; G70.00 Myasthenia gravis without (acute) exacerbation; N20.0 Calculus of kidney; Z86.73 Personal history of transient ischemic attack (TIA), and cerebral infarction without residual deficits
CPT/HCPCS: 36415; 80051; 80053; 80061; 81001; 82040; 82043; 82306; 82310; 82565; 83721; 83735; 83970; 84100; 84156; 84439; 84443; 84520; 85007; 85027; 87086

== ENCOUNTER → 2022-10-01 11:33 | Outpatient (BNVA) | payer OTHER, SELFPAY | PROVIDERS: PCP Internal Medicine; Visit Provider Nurse Practitioner | DX: K21.9 Gastro-esophageal reflux disease without esophagitis (principal); K58.0 Irritable bowel syndrome with diarrhea; D12.6 Benign neoplasm of colon, unspecified; R74.8 Abnormal levels of other serum enzymes | CPT/HCPCS: 99212 ==

== ENCOUNTER 2022-10-10 10:00 | Outpatient (REF) | payer OTHER, SELFPAY ==
[2022-10-10 11:39] LABS: MANUAL DIFF FLAG NO
[2022-10-10 12:00] LABS: INTERNATIONAL NORM RATIO 0.9 (0.9-1.1); Prothrombin Time 10.5 SEC (10.0-13.1)
[2022-10-10 12:03] LABS: Basophils Percent Auto 0.4 % (0-2); Eosinophils Absolute Auto 0.2 X10*3/uL (0.0-0.4); Eosinophils Percent Auto 1.9 % (0-4); Hematocrit 46.5 % (37.0-47.0); Hemoglobin 14.7 g/dl (12.0-16.0); Imm Gran Abs Auto 0.03 X10*3/uL (0.00-0.03); Imm Gran Pct Auto 0.4 % (0.0-0.4); Lymphocytes Absolute Auto 2.1 X10*3/uL (1.2-4.9); Lymphocytes Percent Auto 25.5 % (20-40); Mean Corpuscular HGB Conc 31.6 g/dl (31.0-35.0); Mean Corpuscular Hemoglobin 27.8 pg (27.0-33.0); Mean Corpuscular Volume 88.1 fL (80.0-98.0); Mean Platelet Volume 10.5 fL (9.4-12.3); Monocytes Absolute Auto 0.8 X10*3/uL (0.1-1.2); Monocytes Percent Auto 9.1 % (2-11); Neutrophils Absolute Auto 5.2 x10*3/uL (2.0-8.3); Neutrophils Percent Auto 62.7 % (45-73); Platelet Count 342 X10*3/uL (160-400); Red Blood Count 5.28 X10*6/uL (4.20-5.50); Red Cell Distribution Width 15.9 % (11.0-16.0); White Blood Count 8.3 X10*3/uL (4.8-10.8)
[2022-10-10 12:17] LABS: Anion Gap 10 (12-20); Blood Urea Nitrogen 16 mg/dL (9-16); Carbon Dioxide 25 mmol/L (22-29); Chloride 105 mmol/L (96-108); Estimated Glomerular Filt Rate > 60; Potassium 4.4 mmol/L (3.3-5.1); Sodium 136 mmol/L (135-145)
== END 2022-10-10 10:01 | disposition home or self-care (01) ==
LOC: HO.HMGCLDS 10:00
PROVIDERS: Visit Provider Surgery
DX: I73.9 Peripheral vascular disease, unspecified (principal)
CPT/HCPCS: 36415; 80051; 82565; 84520; 85025; 85610

== ENCOUNTER 2022-10-30 09:26 | Outpatient (REF) | payer OTHER, SELFPAY ==
[2022-10-30 11:37] LABS: Baso%MD 0.7 %; Eos%MD 1.9 %; Hematocrit 44.3 % (37.0-47.0); Hemoglobin 14.5 g/dl (12.0-16.0); IG%MD 0.3 %; Lymph%MD 24.2 %; Mean Corpuscular HGB Conc 32.7 g/dl (31.0-35.0); Mean Corpuscular Hemoglobin 28.8 pg (27.0-33.0); Mean Corpuscular Volume 87.9 fL (80.0-98.0); Mean Platelet Volume 11.1 fL (9.4-12.3); Mono%MD 9.7 %; Neut%MD 63.2 %; Platelet Count 315 X10*3/uL (160-400); Red Blood Count 5.04 X10*6/uL (4.20-5.50); Red Cell Distribution Width 15.4 % (11.0-16.0); White Blood Count 7.4 X10*3/uL (4.8-10.8)
[2022-10-30 12:12] LABS: Free T4 (Free Thyroxine) 1.39 ng/dL (0.71-1.85); Thyroid Stimulating Hormone 0.05 uIU/mL (0.32-4.0)
[2022-10-30 13:51] LABS: Band Neutrophils Percent 0 % (3-5); Basophils Abs Manual 0.1 X10*3/uL (0.0-0.2); Basophils Percent Manual 2 % (0-2); Eosinophils Absolute Manual 0.2 X10*3/uL (0.0-0.4); Eosinophils Percent Manual 3 % (0-4); Lymphocytes Percent Manual 27 % (20-40); Monocytes Absolute Manual 0.7 X10*3/uL (0.1-1.2); Monocytes Percent Manual 9 % (2-11); Neutrophils Absolute Manual 4.4 X10*3/uL (2.0-8.3); Neutrophils Percent Manual 59 % (45-73); Platelet Estimate NORMAL (NORMAL); Platelet Morphology Comment NORMAL; RBC Morphology NORMAL
== END 2022-10-30 09:27 | disposition home or self-care (01) ==
LOC: HO.HMGCLDS 09:26
PROVIDERS: Absent Provider Psychiatry & Neurology Neurology; PCP Internal Medicine; Visit Provider Internal Medicine
DX: E03.9 Hypothyroidism, unspecified (principal); G70.00 Myasthenia gravis without (acute) exacerbation; Z86.73 Personal history of transient ischemic attack (TIA), and cerebral infarction without residual deficits
CPT/HCPCS: 36415; 84439; 84443; 85007; 85027

== ENCOUNTER 2022-11-18 09:18 | Outpatient (REF) | payer OTHER, SELFPAY ==
--- NOTE | ~2022-11-18 | CT_ITS ---
EXAMINATION: LUNG CANCER SCREENING CT CHEST WITHOUT CONTRAST CLINICAL INFORMATION: Former smoker with 36 pack year history, quit 0.5 years ago. COMPARISON: 10.02.2021 and 04.10.2020 TECHNIQUE: Multidetector volumetric CT imaging of the chest was obtained noncontrast using low dose screening CT technique. Axial thin section 0.625 mm reformations in soft tissue and lung windows were obtained. Sagittal and coronal reformations were obtained. Axial MIP images were also created and reviewed. This CT examination was performed using dose optimization techniques as appropriate, variously including the following: *Automated exposure control *Adjustment of mA and/or kV according to patient size (this includes techniques or standardized protocols for targeted exams where dose is matched to indication/reason for exam; i.e. extremities or head) *Use of iterative reconstruction technique TOTAL EXAM DLP: 74.07 mGy-cm FINDINGS: PULMONARY NODULES (see fung images): No suspicious pulmonary nodules. Stable scattered micronodules as best appreciated on the maximal intensity projection images. There is a stable 3.5 mm mean diameter nodule in the left lower lobe on series 5, image 278. Scattered calcified granulomata in the right lung, with calcified lymph nodes along the axial interstitium of the right upper lobe with associated parenchymal scarring and localized cystic change. LUNGS / PLEURA: Mild emphysema. Diffuse mild bronchial thickening without bronchiectasis. No pleural effusion or pneumothorax. MEDIASTINUM / PHOEN[place]: Heart normal in size without pericardial effusion. Great vessels normal caliber. No lymphadenopathy. Coronary calcifications present. Imaged thyroid gland unremarkable. CHEST WALL / AXILLA: Unremarkable. UPPER ABDOMEN: Included portions grossly unremarkable allowing for limitations in technique. OSSEOUS STRUCTURES: No acute or suspicious osseous abnormalities. CT/CT lung screening IMPRESSION: * No evidence of pulmonary malignancy. * There are no pulmonary nodules that meet criteria for short interval follow-up at this time. * Mild emphysema and chronic airways disease. * Evidence of prior granulomatous disease. ASSESSMENT: Lung RADS category: 2. Benign appearance or behavior. Nodules with a very low likelihood of becoming a clinically active cancer due to size or lack of growth. Continue annual screening with low-dose CT in 12 months. Probability of malignancy less than 1%. RECOMMENDATION: Follow up low dose CT chest in 1 year.
== END 2022-11-18 09:19 | disposition home or self-care (01) ==
LOC: HO.CT 09:18
PROVIDERS: PCP Internal Medicine; Visit Provider Physician Assistant Medical
DX: Z12.2 Encounter for screening for malignant neoplasm of respiratory organs (principal); Z87.891 Personal history of nicotine dependence
CPT/HCPCS: 71271

== ENCOUNTER 2022-12-09 11:10 | Outpatient (REF) | payer OTHER, SELFPAY ==
[2022-12-09 14:54] LABS: Free T4 (Free Thyroxine) 1.13 ng/dL (0.71-1.85); Thyroid Stimulating Hormone 0.37 uIU/mL (0.32-4.0)
[2022-12-09 15:08] LABS: Folate 12.2 ng/mL (> or = 4.0); Vitamin B12 305 pg/mL (200-900)
== END 2022-12-09 11:11 | disposition home or self-care (01) ==
LOC: HO.HMGCLDS 11:10
PROVIDERS: Absent Provider Internal Medicine; PCP Internal Medicine; Visit Provider Internal Medicine
DX: E89.0 Postprocedural hypothyroidism (principal); Z86.39 Personal history of other endocrine, nutritional and metabolic disease
CPT/HCPCS: 36415; 82607; 82746; 84439; 84443

== ENCOUNTER 2023-02-09 13:14 | Outpatient (AMB) | payer OTHER, SELFPAY ==
--- NOTE | 2023-02-09 13:26 | MHC.OFFVIS ---
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 Step Required: No Allergies Penicillins [PCN] Allergy (Unknown, Verified 02/09/23 13:36) RASH gabapentin Adverse Reaction (Unknown, Verified 02/09/23 13:36) Dizziness Medication List - Last Reconciled 02/09/23 by LESTER Hoffman blood sugar diagnostic (FreeStyle Lite Strips) 4x daily blood-glucose meter (FreeStyle Lite Meter kit) As directed blood-glucose meter (FreeStyle Lite Meter kit) As directed hydrochlorothiazide 25 mg PO DAILY@1999 insulin glargine (Lantus Solostar U-100 Insulin) 12 units (0.12 mL) subcut BEDTIME 30 days lancets (FreeStyle Lancets) 4x daily levothyroxine 112 mcg PO DAILY metformin 1,000 mg PO BID mycophenolate mofetil 1,000 mg PO TID@0800,1300,1900 oxybutynin chloride ER 15 mg PO DAILY pen needle, diabetic (BD Ultra-Fine Marilee Pen Needle) As directed once daily pyridostigmine bromide ER 180 mg PO 0800,1300,1900,2000 ramipril 10 mg PO DAILY rosuvastatin 40 mg PO DAILY 90 days simethicone 180 mg PO QID 30 days sulfamethoxazole-trimethoprim 800-160 mg 1 tab PO Q12H sulfamethoxazole-trimethoprim 800-160 mg (Bactrim DS) 1 tab PO BID 7 days walker walker with seat and hand brakes HPI OVERDUE FOLLOW UP [facility] PT HPI Details Magy is a 67-year-old female with past medical history of hypertension, hyperlipidemia, diabetes, smoking, peripheral vascular disease who presents for follow-up. Today she reports that for the last few weeks she has been getting a mild pressure in her left upper chest region that can occur at rest and with activity. She says it will last for up to 7 minutes and resolved. She does not get it during the night. She is not clear if it is directly brought on by physical activity. It has only occurred a few times. She tells me she is leaving for [facility] on Thursday by airplane and will be staying 1 month. No shortness of breath, palpitations, dizziness, presyncope, syncope, PND, orthopnea or edema. She reports compliance with her medications. [facility] Medical History (Updated 02/09/23 @ 17:16 by CHARLENE HoffmanC) Amputation of left great toe Chronic low back pain Colitis without complication COVID-19 vaccine series declined History of amputation of toe History of CVA (cerebrovascular accident) (~10/2020) History of kidney stones HLD (hyperlipidemia) HTN (hypertension) Hypercalcemia Hypothyroidism Kidney calculi Mass of left thigh Microalbuminuria Multinodular thyroid Myasthenia gravis Myasthenia gravis Occlusion of stent of peripheral artery Pain in left foot Pain in left lower leg Pain of plantar aspect of heel Pain, lower/upper extremity Pernicious anemia Personal history of nicotine dependence Positional lightheadedness T2DM (type 2 diabetes mellitus) Tubular adenoma of colon Ureteral stone with hydronephrosis Urge urinary incontinence Urinary, incontinence, stress female Vitamin B12 deficiency Vitamin D deficiency Wheezing Surgical History History of amputation of toe History of bilateral cataract extraction (~2019) History of colonoscopy History of esophagogastroduodenoscopy (EGD) History of hernia repair History of hysterectomy (~1984) History of lithotripsy (~2013) History of parathyroidectomy Hx of blood clots Status post biopsy of thyroid gland (~2021) Family History Father Lung cancer Mother Asthma Diabetes HTN (hypertension) Heart attack Sister FH: mental illness Leukemia Mental health disorder Social History Household Members: None Housing: Apartment Alcohol intake: current Alcohol intake frequency: does not drink Patient Tobacco Use Status: Former Tobacco user Tobacco use type: Cigarette Years Smoked: 45 +/- e-Cigarette/Vaping Use: Never Used Advance Directives Date on File: 03/03/22 service: No Current occupational status: disabled Cognitive needs: No Hearing needs: No Vision needs: No Review of Systems Const All systems reviewed & are unremarkable except as noted in HPI and below ENT Denies dizziness Card Reports chest pain, Reports chest pain at rest, Reports chest pain with activity, Denies rapid heart rate, Denies pedal edema, Denies edema, Denies leg edema, Denies lightheadedness, Denies palpitations, Denies dyspnea, Denies dyspnea on exertion and Denies orthopnea Resp Denies cough, Denies dyspnea and Denies dyspnea on exertion GI Denies hematochezia and Denies change in stool character Musc Denies abnormal gait, Denies limited range of motion, Denies muscle cramps, Denies muscle weakness, Denies numbness, Denies radiating pain into limb, Denies stiffness and Denies tingling Neuro Denies abnormal gait, Denies dizziness, Denies numbness and Denies tingling Endo Denies palpitations Physical Exam Vital Signs: Last Vital Signs Pulse 95 02/09/23 13:27 BP 140/82 H 02/09/23 13:27 BMI result Body Mass Index 25.4 Const General: cooperative, healthy appearing, comfortable and no acute distress Orientation/consciousness: patient oriented x3 Neck Neck: Yes normal visual inspection Resp Effort & Inspection: normal respiratory effort Auscultation: clear to auscultation bilaterally, no crackles, no rales, no rhonchi and no wheezes Cardio Jugular venous distension: no JVD Rate: regular rate Rhythm: regular rhythm Heart sounds: S1 normal heart sound present, S2 normal heart sound present, no murmurs and no rubs GI Inspection: Yes normal to inspection Neuro General: patient oriented x3 Extrem General: Yes normal to inspection Psych Appearance: grossly normal Mental Status: mental status grossly normal Speech and movement: Normal speech and movement present Office Procedures EKG Details: Today, read by me, normal sinus rhythm, no acute ST and T-wave abnormalities, rate 95, QTC 447 millisecond [id number], Complete Assessment & Plan Assessment & Plan (1) Precordial chest pain: Code(s): R07.2 - Precordial pain Plan: Report of intermittent episodes a left chest pressure occurring randomly lasting several minutes before resolving. No known history of CAD. She does have multiple cardiac risk factors including hypertension, hyperlipidemia, diabetes, smoking. She also has known peripheral vascular disease with SFA stent. She tells me she is leaving in 5 days to [facility] and will be gone for 1 month. She is not interested in cardiac testing prior to leaving. She will be visiting her family. EKG done today showing sinus rhythm with no acute ST or T-wave abnormalities. Patient informed that her symptoms could be angina. Signs and symptoms of angina reviewed with her. Instructed to seek emergency medical care if needed for symptoms not relieved by rest. Risk of MO discussed. She states understanding and is still willing to wait for cardiac testing to be done. Vascular note states she is on Plavix. Continue high-dose statin. Will start metoprolol XL 25 mg daily. Blood pressure and pulse rate mildly elevated today. Echocardiogram and nuclear stress test have been ordered. She does report history of prior CVA. Unclear if she would be able to exercise on a treadmill. Pharmacological study has been ordered. Cardiology follow-up when test results are available. (2) HTN (hypertension): Code(s): I10 - Essential (primary) hypertension Qualifiers: Hypertension type: unspecified Qualified Code(s): I10 - Essential (primary) hypertension Plan: Mildly elevated today. Starting low-dose metoprolol. Continue hydrochlorothiazide. Will be reached checked at next visit (3) HLD (hyperlipidemia): Code(s): E78.5 - Hyperlipidemia, unspecified Qualifiers: Hyperlipidemia type: unspecified Qualified Code(s): E78.5 - Hyperlipidemia, unspecified Plan: [place] LDL goal less than 70 in patient with diabetes. Labs followed by PCP. Lipid profile done 09/23/2022 shows LDL 69. Continue high-dose rosuvastatin. (4) PAD (peripheral artery disease): Comment: 12/04/2021 - left SFA atherectomy and stent 01/01/2022 - left leg diagnostic angiogram Code(s): I73.9 - Peripheral vascular disease, unspecified Plan: History of left SFA stent. She follows with [facility]. There are no is scanned into our system. Their med list includes Plavix 75 mg daily. Orders: Orders CA lexiscan stress w marce Today R07.2 - Precordial pain NM cardiolite stress test Today R07.2 - Precordial pain CA echo transthoracic complete Today E11.9 - Type 2 diabetes mellitus without complications, E78.5 - Hyperlipidemia, unspecified, I10 - Essential (primary) hypertension, R07.2 - Precordial pain Medications: New metoprolol succinate ER 25 mg PO DAILY 30 tabs 3RF clopidogrel 75 mg PO DAILY Coding Level of Care Code Est Pt Level 4 (88189) Diagnoses Precordial chest pain R07.2 HTN (hypertension) I10 Hypertension type: unspecified HLD (hyperlipidemia) E78.5 Hyperlipidemia type: unspecified PAD (peripheral artery disease) I73.9 CPT Codes EKG - CPT: 42372-[id number], Complete ([id number]) Time Spent (min) 26 Comment Chart review, documentation, interview, assessment
[2023-02-09 13:27] VITALS: BP 140/82; PULSE 95; BMI 25.4
== END 2023-02-09 14:00 | disposition home or self-care (01) ==
PROVIDERS: PCP Internal Medicine; Referring Provider Internal Medicine; Visit Provider Nurse Practitioner Family
DX: R07.2 Precordial pain (principal); I10 Essential (primary) hypertension; E78.5 Hyperlipidemia, unspecified; I73.9 Peripheral vascular disease, unspecified
CPT/HCPCS: 93010; 99214

== ENCOUNTER → 2023-02-09 13:14 | Outpatient (BNVA) | payer OTHER, SELFPAY | PROVIDERS: PCP Internal Medicine; Referring Provider Internal Medicine; Visit Provider Nurse Practitioner Family | DX: R07.2 Precordial pain (principal); I10 Essential (primary) hypertension; E78.5 Hyperlipidemia, unspecified; I73.9 Peripheral vascular disease, unspecified; Z79.899 Other long term (current) drug therapy | CPT/HCPCS: 93005; 99212 ==

== ENCOUNTER 2023-02-11 13:01 | Outpatient (AMB) | payer OTHER, SELFPAY ==
--- NOTE | 2023-02-11 13:35 | MHC.PC.OV ---
Vital Signs 02/11/23 13:39 Height 5 ft 2 in Weight 141 lb BMI 25.8 BP 140/60 H Blood Pressure Location Lt brachial Position Sitting Pulse 88 Pulse Source Pulse Oximeter Pulse Oximetry (%) 97 Oxygen Delivery Method Room Air Intake Visit Reasons: DM Follow Up Allergies Penicillins [PCN] Allergy (Unknown, Verified 02/09/23 13:36) RASH gabapentin Adverse Reaction (Unknown, Verified 02/09/23 13:36) Dizziness Medication List - Last Reconciled 02/11/23 by Bernadette De Souza MD blood sugar diagnostic (FreeStyle Lite Strips) 4x daily blood-glucose meter (FreeStyle Lite Meter kit) As directed blood-glucose meter (FreeStyle Lite Meter kit) As directed clopidogrel 75 mg PO DAILY hydrochlorothiazide 25 mg PO DAILY@2000 insulin glargine (Lantus Solostar U-100 Insulin) 12 units (0.12 mL) subcut BEDTIME 30 days lancets (FreeStyle Lancets) 4x daily levothyroxine 112 mcg PO DAILY metformin 1,000 mg PO BID metoprolol succinate ER 25 mg PO DAILY mirabegron ER (Myrbetriq) 25 mg PO DAILY mycophenolate mofetil 1,000 mg PO TID@0800,1300,1900 oxybutynin chloride ER 15 mg PO DAILY pen needle, diabetic (BD Ultra-Fine Marilee Pen Needle) As directed once daily pyridostigmine bromide ER 180 mg PO 0800,1300,1900,2000 ramipril 10 mg PO DAILY rosuvastatin 40 mg PO DAILY 90 days simethicone 180 mg PO QID 30 days Tobacco use date assessed: 06/26/22 HPI DM Follow Up HPI Details 67-year-old lady here today for follow-up on her diabetes mellitus currently taking Lantus 12 units at bedtime, forming a 1000 mg twice a day and Trulicity . She has been compliant with her diet, and has been more active . Today's hemoglobin A1c is at 6.3%. [facility] Medical History Amputation of left great toe Chronic low back pain Colitis without complication COVID-19 vaccine series declined Diabetes mellitus, with long-term current use of insulin History of amputation of toe History of CVA (cerebrovascular accident) (~10/2020) History of kidney stones HTN (hypertension) Hypercalcemia Hypothyroidism Kidney calculi Mass of left thigh Microalbuminuria Multinodular thyroid Myasthenia gravis Myasthenia gravis Occlusion of stent of peripheral artery Pain in left foot Pain in left lower leg Pain of plantar aspect of heel Pain, lower/upper extremity Pernicious anemia Personal history of nicotine dependence Positional lightheadedness Tubular adenoma of colon Ureteral stone with hydronephrosis Urge urinary incontinence Urinary, incontinence, stress female Vitamin B12 deficiency Vitamin D deficiency Wheezing Surgical History History of amputation of toe History of bilateral cataract extraction (~2019) History of colonoscopy History of esophagogastroduodenoscopy (EGD) History of hernia repair History of hysterectomy (~1984) History of lithotripsy (~2013) History of parathyroidectomy Hx of blood clots Status post biopsy of thyroid gland (~2021) Family History Father Lung cancer Mother Asthma Diabetes HTN (hypertension) Heart attack Sister FH: mental illness Leukemia Mental health disorder Social History Household Members: None Housing: Apartment Alcohol intake: current Alcohol intake frequency: does not drink Patient Tobacco Use Status: Former Tobacco user Tobacco use type: Cigarette Years Smoked: 45 +/- e-Cigarette/Vaping Use: Never Used Advance Directives Date on File: 03/03/22 service: No Current occupational status: disabled Cognitive needs: No Hearing needs: No Vision needs: No Questionnaire Thrive Questionnaire Date Thrive assessed: 12/30/21 APARNA-7 AMB Questionnaire APARNA-7 Date APARNA - 7 assessed: 12/30/21 Source: Developed by Drs. Cristi De Luna, Bertha Robbins, Gallo Leiva and colleagues, with an educational jud from [employer]. Review of Systems Const Denies body aches, Denies fatigue, Denies fever(s) and Denies headache(s) Eyes Denies change in vision ENT Denies change in voice, Denies otalgia, Denies headache(s), Denies hoarseness, Denies nasal congestion, Denies nasal discharge, Denies post nasal drip, Denies sinus pain and Denies sore throat Card Denies chest pain, Denies rapid heart rate, Denies irregular heart rhythm and Denies dyspnea Resp Denies cough and Denies dyspnea GI Denies abdominal pain, Denies change in bowel habits and Denies dyspepsia Denies hematuria, Denies difficulty voiding, Denies genital pruritis and Denies dysuria Musc Details: Status post amputation of 5th digits in both feet Denies myalgias, Denies muscle cramps, Denies numbness and Denies tingling Skin/Breast Denies lesions and Denies rash Neuro Denies headache(s), Denies numbness and Denies tingling Endo Denies fatigue, Denies polyphagia, Denies polydipsia and Denies polyuria Physical exam (Primary Care) Vital Signs: Last Vital Signs Pulse 88 02/11/23 13:39 BP 140/60 H 02/11/23 13:39 Pulse Ox 97 02/11/23 13:39 Oxygen Delivery Method Room Air 02/11/23 13:39 BMI result Body Mass Index 25.8 Tobacco/Smoking Status: Tobacco use Status Tobacco use date assessed 06/26/22 02/11/23 13:43 Patient Tobacco Use Status Former Tobacco user 02/11/23 13:43 Tobacco use type Cigarette 02/11/23 13:43 e-Cigarette/Vaping Use Never Used 02/11/23 13:43 Thrive Assessment: Date of Thrive Assessment Date Thrive assessed 12/30/21 02/11/23 13:43 Const General: no acute distress, alert and Physically active Orientation/consciousness: patient oriented x3 HENMT Face and sinus: Yes face symmetric Mouth: Normal oral and palatal mucosa present, oropharynx normal and moist mucous membranes Eyes General: appearance normal, both eyes and all related structures Neck Other: Thyroid gland nonpalpable Neck: Yes full ROM, Yes no lymphadenopathy and Yes supple Resp Effort & Inspection: normal respiratory effort and able to speak in complete sentences Auscultation: wheezes scattered wheezes Cardio Other: S1-S2 present regular rate and rhythm GI Palpation (GI): Soft to palpation, nontender, no guarding and no masses Auscultation: normal bowel sounds Skin General skin exam: no rashes or lesions noted Neuro General: patient oriented x3, moves all extremities, no focal motor deficits, CN's II-XI intact bilaterally and decrease sensation to monofilament (In both lower extremities) Extrem Other: No pedal edema noted, no gross bone deformity seen, Absent 5th digits in both feet Results AMB Hemoglobin A1c AMB Hemoglobin A1c 6.3 % Last Edit by Gretchen Jones CMA on 02/11/23 13:45 Immunizations pneumoc 20-afshin conj-dip cr(PF) Performing Provider: Bernadette De Souza MD Administered by: Gretchen Jones CMA on 02/11/23 14:08 Dose Route Admin Location Lot Number Expiration Date NDC [employer] 0.5 mL IM Right Deltoid [id number] 04/14/24 5615-3230-79 [employer] [facility] VIS Given Date VIS Provided VIS Publication Date 02/11/23 Single Vaccine 21 Eligibility Eligibility Date Funding Source Not VFC Eligible 02/11/23 Private Results Reviewed Results Reviewed: Laboratory Last Values Hgb A1c (Clinic) 6.3 % (4.0-6.0) H 02/11/23 13:34 Assessment and Plan Assessment & Plan (1) Diabetes mellitus, with long-term current use of insulin: Code(s): E11.9 - Type 2 diabetes mellitus without complications; Z79.4 - group home (current) use of insulin Plan: hemoglobin A1c today within normal limits at 6.3%. Will continue on present medications, refill sent for her Lantus and Trulicity and metformin. continue to check fasting blood sugar at home, maintain log and bring to next appointment for review. Reinforced diabetic diet and regular exercise with patient. Counseled regarding importance of yearly diabetes retinopathy screening. Patient advised to inspect feet daily, for any signs of injury, callus or infection. Compliance with diet and regular exercise again stressed. Blood pressure goal is less than 130/80, goal LDL is less than 100 and goal hemoglobin A1c is less than 7% follow-up appointment made in-3--months, after fasting labs done.. Prevnar 20 given today. Advised to get her COVID booster, does not get flu shots (2) Multinodular thyroid: Comment: Dr Coulter Code(s): E04.2 - Nontoxic multinodular goiter Plan: Ordered TSH and free T4 (3) Hypothyroidism: Code(s): E03.9 - Hypothyroidism, unspecified Qualifiers: Hypothyroidism type: postablative Qualified Code(s): E89.0 - Postprocedural hypothyroidism Plan: Ordered TSH and free T4, continue with levothyroxine 112 mcg daily in a.m. (4) HLD (hyperlipidemia): Code(s): E78.5 - Hyperlipidemia, unspecified Qualifiers: Hyperlipidemia type: unspecified Qualified Code(s): E78.5 - Hyperlipidemia, unspecified Plan: Fasting lipid panel ordered, continue with rosuvastatin 40 mg at daily (5) Vitamin D deficiency: Code(s): E55.9 - Vitamin D deficiency, unspecified Plan: Will check vitamin-D level, advised to start taking acfi-fce-buwmert vitamin-D 3 2000 units daily (6) Vitamin B12 deficiency: Code(s): E53.8 - Deficiency of other specified B group vitamins Plan: Will check vitamin B12 low (7) Urinary, incontinence, stress female: Code(s): N39.3 - Stress incontinence (female) (male) (8) History of amputation of toe: Comment: 5th toe on the left foot Code(s): Z89.429 - Acquired absence of other toe(s), unspecified side (9) PAD (peripheral artery disease): Comment: 12/04/2021 - left SFA atherectomy and stent 01/01/2022 - left leg diagnostic angiogram Code(s): I73.9 - Peripheral vascular disease, unspecified Plan: Followed by Dr. Aguilar, [facility] vascular surgery, continue with clopidogrel (10) Myasthenia gravis: Comment: sees Neurologist [address] [place] [address] Code(s): G70.00 - Myasthenia gravis without (acute) exacerbation Plan: Followed by Neurology (11) HTN (hypertension): Code(s): I10 - Essential (primary) hypertension Qualifiers: Hypertension type: unspecified Qualified Code(s): I10 - Essential (primary) hypertension Plan: Blood pressure goal is less than 130/80. Continued on ramipril, hydrochlorothiazide, metoprolol succinate ER. Reinforced importance of following a low sodium diet, getting regular exercise, and lowering stress levels. Patient currently being followed for her chronic kidney disease and hypertension by Dr. Mcneill Orders: Orders Alanine Aminotransferase Today E03.9 - Hypothyroidism, unspecified, E04.2 - Nontoxic multinodular goiter, E11.9 - Type 2 diabetes mellitus without complications, E55.9 - Vitamin D deficiency, unspecified, E78.5 - Hyperlipidemia, unspecified, Z79.4 - long term care phlebotomist (current) use of insulin Aspartate Amino Transferase Today E03.9 - Hypothyroidism, unspecified, E04.2 - Nontoxic multinodular goiter, E11.9 - Type 2 diabetes mellitus without complications, E55.9 - Vitamin D deficiency, unspecified, E78.5 - Hyperlipidemia, unspecified, Z79.4 - group home (current) use of insulin Basic Metabolic Panel Fasting Today E03.9 - Hypothyroidism, unspecified, E04.2 - Nontoxic multinodular goiter, E11.9 - Type 2 diabetes mellitus without complications, E55.9 - Vitamin D deficiency, unspecified, E78.5 - Hyperlipidemia, unspecified, Z79.4 - long term care phlebotomist (current) use of insulin Hemoglobin A1c Today E03.9 - Hypothyroidism, unspecified, E04.2 - Nontoxic multinodular goiter, E11.9 - Type 2 diabetes mellitus without complications, E55.9 - Vitamin D deficiency, unspecified, E78.5 - Hyperlipidemia, unspecified, Z79.4 - long term care phlebotomist (current) use of insulin Lipid Panel Today E03.9 - Hypothyroidism, unspecified, E04.2 - Nontoxic multinodular goiter, E11.9 - Type 2 diabetes mellitus without complications, E55.9 - Vitamin D deficiency, unspecified, E78.5 - Hyperlipidemia, unspecified, Z79.4 - group home (current) use of insulin Free T4 (Free Thyroxine) 3 Months E03.9 - Hypothyroidism, unspecified, E04.2 - Nontoxic multinodular goiter, E11.9 - Type 2 diabetes mellitus without complications, E55.9 - Vitamin D deficiency, unspecified, E78.5 - Hyperlipidemia, unspecified, Z79.4 - long term care phlebotomist (current) use of insulin Thyroid Stimulating Hormone Today E03.9 - Hypothyroidism, unspecified, E04.2 - Nontoxic multinodular goiter, E11.9 - Type 2 diabetes mellitus without complications, E55.9 - Vitamin D deficiency, unspecified, E78.5 - Hyperlipidemia, unspecified, Z79.4 - group home (current) use of insulin Vitamin D 25-OH Total Today E03.9 - Hypothyroidism, unspecified, E04.2 - Nontoxic multinodular goiter, E11.9 - Type 2 diabetes mellitus without complications, E55.9 - Vitamin D deficiency, unspecified, E78.5 - Hyperlipidemia, unspecified, Z79.4 - group home (current) use of insulin Microalbumin, Random (w Creat) Today E03.9 - Hypothyroidism, unspecified, E04.2 - Nontoxic multinodular goiter, E11.9 - Type 2 diabetes mellitus without complications, E55.9 - Vitamin D deficiency, unspecified, E78.5 - Hyperlipidemia, unspecified, Z79.4 - long term care phlebotomist (current) use of insulin Vitamin B12 and Folate Today E53.8 - Deficiency of other specified B group vitamins Pneumococcal 20 Immunization Today Z23 - Encounter for immunization AMB Hemoglobin A1c Today E11.9 - Type 2 diabetes mellitus without complications Medications: Changed From dulaglutide (Trulicity) 0.75 mg (0.5 mL) subcut QWEEK 2 mL 6RF E11.65 - Type 2 diabetes mellitus with hyperglycemia To Trulicity (dulaglutide) 0.75 mg (0.5 mL) subcut QWEEK 2 mL 8RF NS E11.65 - Type 2 diabetes mellitus with hyperglycemia Refilled rosuvastatin 40 mg PO DAILY 90 tabs 3RF 90 days insulin glargine (Lantus Solostar U-100 Insulin) 12 units (0.12 mL) subcut BEDTIME 3.6 mL 11RF 30 days metformin 1,000 mg PO BID 60 tabs 5RF E89.0 - Postprocedural hypothyroidism Coding Level of Care Code Est Pt Level 4 (62574) Diagnoses Diabetes mellitus, with long-term current use of insulin E11.9; Z79.4 Multinodular thyroid E04.2 Hypothyroidism E89.0 Hypothyroidism type: postablative HLD (hyperlipidemia) E78.5 Hyperlipidemia type: unspecified Vitamin D deficiency E55.9 Vitamin B12 deficiency E53.8 Urinary, incontinence, stress female N39.3 History of amputation of toe Z89.429 PAD (peripheral artery disease) I73.9 Myasthenia gravis G70.00 HTN (hypertension) I10 Hypertension type: unspecified
[2023-02-11 13:39] VITALS: BP 140/60; PULSE 88; O2SAT 97; BMI 25.8
== END 2023-02-11 14:36 | disposition home or self-care (01) ==
PROVIDERS: PCP Internal Medicine; Visit Provider Internal Medicine
DX: Z23 Encounter for immunization (principal)
CPT/HCPCS: 83036; 90471; 90677; 99214

== ENCOUNTER 2023-02-13 09:06 | Outpatient (REF) | payer OTHER, SELFPAY ==
[2023-02-13 11:54] LABS: Estimated Average Glucose 134 mg/dL; Hemoglobin A1c % 6.3 % (<6.0)
[2023-02-13 12:10] LABS: Anion Gap 12 (12-20); Blood Urea Nitrogen 14 mg/dL (9-16); Calcium 9.5 mg/dL (8.4-10.2); Carbon Dioxide 23 mmol/L (22-29); Chloride 106 mmol/L (96-108); Estimated Glomerular Filt Rate > 60; Potassium 3.3 mmol/L (3.3-5.1); Sodium 138 mmol/L (135-145)
[2023-02-13 12:24] LABS: Alanine Aminotransferase 12 U/L (0-31); Anion Gap 13 (12-20); Aspartate Amino Transferase 16 U/L (5-31); Blood Urea Nitrogen 16 mg/dL (9-16); Calcium 9.5 mg/dL (8.4-10.2); Carbon Dioxide 23 mmol/L (22-29); Chloride 106 mmol/L (96-108); Cholesterol 278 mg/dL (<200); Estimated Glomerular Filt Rate > 60; Glucose Fasting 142 mg/dL (60-99); HDL Cholesterol 49 mg/dL (>40); LDL Cholesterol Calculated 195 mg/dL (<100); Potassium 3.4 mmol/L (3.3-5.1); Sodium 139 mmol/L (135-145); Thyroid Stimulating Hormone 1.45 uIU/mL (0.32-4.0); Triglycerides 170 mg/dL (<150); Vitamin D 25-OH Total 45.1 ng/mL (>30)
[2023-02-13 12:39] LABS: Folate 10.8 ng/mL (> or = 4.0); Vitamin B12 278 pg/mL (200-900)
[2023-02-13 13:26] LABS: Appearance Urine Cloudy; Color Urine Yellow; Glucose Urine UA Negative (Negative); Leukocyte Esterase Urine Moderate (2+) (Negative); Nitrite Urine Negative (Negative); PH 6.5 (5.0-9.0); Specific Gravity - Urine 1.025 (1.005-1.025); UMIC TRIGGER UA YES; Urine Blood Negative (Negative); Urine Ketones Negative (Negative); Urine Protein 100 (2+) mg/dL (Neg-Trace)
[2023-02-13 13:40] LABS: Bacteria Urine 1+ (None Seen); Calcium Oxalate Crystals Urine Present; Hyaline Casts Urine 0-2 /LPF (0-2); RBC Urine 0-2 /HPF (0-2); WBC Urine 21-50 /HPF (0-5)
[2023-02-13 15:01] LABS: Creatinine Urine 143.62 mg/dL; Microalbum/Creatinine Ratio Ur 220.7 ug/mg cr (<30)
[2023-02-13 15:04] LABS: Creatinine Urine 144.08 mg/dL; Microalbum/Creatinine Ratio Ur 219.3 ug/mg cr (<30); Protein/Creatinine Ratio, Ur 0.42 (<0.2); Total Protein Urine Random 60 mg/dL (<12)
== END 2023-02-13 09:07 | disposition home or self-care (01) ==
LOC: HO.HMGCLDS 09:06
PROVIDERS: Absent Provider Internal Medicine Nephrology; PCP Internal Medicine; Visit Provider Internal Medicine
DX: E03.9 Hypothyroidism, unspecified (principal); E04.2 Nontoxic multinodular goiter; E55.9 Vitamin D deficiency, unspecified; E78.5 Hyperlipidemia, unspecified; E53.8 Deficiency of other specified B group vitamins; E11.22 Type 2 diabetes mellitus with diabetic chronic kidney disease; N18.2 Chronic kidney disease, stage 2 (mild); R80.1 Persistent proteinuria, unspecified; Z79.4 Long term (current) use of insulin
CPT/HCPCS: 36415; 80048; 80051; 80061; 81001; 82043; 82306; 82310; 82565; 82570; 82607; 82746; 83036; 84156; 84443; 84450; 84460; 84520

== ENCOUNTER 2023-03-24 11:40 | Outpatient (AMB) | payer OTHER, SELFPAY ==
--- NOTE | 2023-03-24 11:41 | MHC.OFFVIS ---
Intake Vital Signs 03/24/23 11:44 Height 5 ft 2 in Weight 141 lb 1.533 oz BMI 25.8 BP 161/86 H Blood Pressure Location Lt brachial Position Sitting Pulse 94 Intake Visit Reasons: 6 month f/u for IBS , GERD Intake Note: Magy presents in the office as a 6 month follow up. CC: She is losing weight. She states that she is trying to eat and she is unable to gain weight. She has nodules in her throat. She states it is hard for her to eat. She has issues with her swallowing. 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 Trulicity also a known cause of pancreatitis, so this needs to be addressed with her diabetes prescriber. She is c/o lower abd movement and cramping, recently. 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 She was given and abx and pain meds for this. She has a history of a stroke and DVT which seems to plague her. She seems to be uncertain as to whether she is still taking pantoprazole although it appears on her most current med list. She really wants the famotidine back because she feels that this controls her dyspepsia and her gas better than the PPI. I will prescribe the famotidine but also encouraged her to continue the PPI as well. The she is complaining of floating to try giving her course of simethicone to see if this takes care of the problem. With this she feels satisfied for now is agreeable to a 6 month follow-up. (2) Irritable bowel syndrome with diarrhea: Code(s): K58.0 - Irritable bowel syndrome with diarrhea (3) Elevated lipase: Code(s): R74.8 - Abnormal levels of other serum enzymes (4) Tubular adenoma of colon: Comment: (TA on 2021 scope repeat 5 years) Code(s): D12.6 - Benign neoplasm of colon, unspecified Medications: New simethicone aft er meals 180 mg PO QID 30 days 120 caps 6RF famotidine (Pepcid ) 20 mg PO BEDTIME 30 tabs 6RF Refilled pantoprazole 40 mg PO DAILY 90 tabs 1RF TODAY'S VISIT She says she received the simethicone and is helping her with the bloating. However, she has increased trouble with borborygmi and a feeling of swelling on the right side of her abdomen under the ribcage. She has stopped taking the pantoprazole in the morning and famotidine at bedtime. She denies any trouble with heartburn or GERD. This likely was discontinued because her history of pancreatitis and trying to simplify the pill burden.. She is having increased gas and bloating and in the past this was helped by Creon. I am not sure why this was discontinued but she asks to restarted and of course I will. I educate her that taking 2 in the morning and 2 at night has been shown to be just as affective as breaking it up 4 times a day and increases adherent so she is going to try this. Return office visit in 6 weeks. [facility] Medical History Amputation of left great toe Chronic low back pain Colitis without complication COVID-19 vaccine series declined Diabetes mellitus, with long-term current use of insulin History of amputation of toe History of CVA (cerebrovascular accident) (~10/2020) History of kidney stones HTN (hypertension) Hypercalcemia Hypothyroidism Kidney calculi Mass of left thigh Microalbuminuria Multinodular thyroid Myasthenia gravis Myasthenia gravis Occlusion of stent of peripheral artery Pain in left foot Pain in left lower leg Pain of plantar aspect of heel Pain, lower/upper extremity Pernicious anemia Personal history of nicotine dependence Positional lightheadedness Tubular adenoma of colon Ureteral stone with hydronephrosis Urge urinary incontinence Urinary, incontinence, stress female Vitamin B12 deficiency Vitamin D deficiency Wheezing Surgical History History of amputation of toe History of bilateral cataract extraction (~2019) History of colonoscopy History of esophagogastroduodenoscopy (EGD) History of hernia repair History of hysterectomy (~1984) History of lithotripsy (~2013) History of parathyroidectomy Hx of blood clots Status post biopsy of thyroid gland (~2021) Family History Father Lung cancer Mother Asthma Diabetes HTN (hypertension) Heart attack Sister FH: mental illness Leukemia Mental health disorder Social History Household Members: None Housing: Apartment Alcohol intake: current Alcohol intake frequency: does not drink Patient Tobacco Use Status: Former Tobacco user Tobacco use type: Cigarette Years Smoked: 45 +/- e-Cigarette/Vaping Use: Never Used Advance Directives Date on File: 03/03/22 service: No Current occupational status: disabled Cognitive needs: No Hearing needs: No Vision needs: No Review of Systems Const Denies fatigue, Denies fever(s), Denies night sweats, Denies poor appetite and Denies weight loss ENT Reports Normal hearing present, Denies dental pain, Denies dysphagia, Denies hearing loss, Denies mouth pain, Denies odynophagia, Denies throat swelling, Denies tongue swelling and Reports other (Dentition adequate) Card Reports no additional complaints Resp Reports no additional complaints GI Denies abdominal pain, Denies melena, Reports bloating, Denies hematochezia, Denies constipation, Denies GI cramping, Denies dysphagia, Reports excessive flatus, Denies early satiety, Denies heartburn, Reports diarrhea, Denies nausea, Denies odynophagia, Denies vomiting and Denies hematemesis Skin/Breast Denies pruritus, Denies lesions, Denies rash and Denies jaundice Neuro Reports Normal hearing present and Denies Abnormal speech present Endo Denies fatigue Aller/Immun Denies throat swelling and Denies tongue swelling Physical Exam Vital Signs: Last Vital Signs Pulse 94 03/24/23 11:44 BP 161/86 H 03/24/23 11:44 BMI result Body Mass Index 25.8 Const General: cooperative, no acute distress, well developed and well groomed Nutritional Appearance: average body habitus and well nourished Orientation/consciousness: oriented to person, oriented to place and oriented to time Limitations: No language barrier HEENT Head: Yes normocephalic and Yes atraumatic Eyes General: appearance normal, both eyes and all related structures Pupils: Equal, round and reactive pupils present Neck Neck: Yes normal visual inspection and Yes no lymphadenopathy Thyroid: Thyroid normal Resp Effort & Inspection: normal respiratory effort and able to speak in complete sentences Auscultation: clear to auscultation bilaterally Cardio Rate: regular rate Rhythm: regular rhythm Heart sounds: Normal, physiologic split S2 sound present Peripheral pulses: radial pulses present and posterior tibial pulses present GI Inspection: No distended, No Abdominal panniculus present and Yes obesity Palpation (GI): Soft to palpation, nontender, no guarding, not rigid and No hepatosplenomegaly present Percussion: Yes normal to percussion Auscultation: Hyperactive bowel sounds present Rectal Exam - Female: deferred Skin General skin exam: no rashes or lesions noted, turgor normal, skin not dry, no jaundice, No spider nevi and no striae Rashes: no rashes Nails: normal Neuro General: oriented to person, oriented to place and oriented to time Cranial nerves: Yes Equal, round and reactive pupils present and Yes Normal hearing present Speech: No Abnormal speech present Extrem General: Yes normal to inspection, No clubbing, No cyanosis and No edema Psych Appearance: grossly normal and well kempt Mental Status: mental status grossly normal Speech and movement: Normal speech and movement present Affect: normal affect Attitude: cooperative Thought process: Normal thought process present and not confabulating Thought content: Normal thought content present Insight: Limited insight present (Psych) Judgement: Limited judgement present (Psych) Assessment & Plan Assessment & Plan (1) Irritable bowel syndrome with diarrhea: Code(s): K58.0 - Irritable bowel syndrome with diarrhea Plan: She says she received the simethicone and is helping her with the bloating. However, she has increased trouble with borborygmi and a feeling of swelling on the right side of her abdomen under the ribcage. She has stopped taking the pantoprazole in the morning and famotidine at bedtime. She denies any trouble with heartburn or GERD. This likely was discontinued because her history of pancreatitis and trying to simplify the pill burden.. She is having increased gas and bloating and in the past this was helped by Creon. I am not sure why this was discontinued but she asks to restarted and of course I will. I educate her that taking 2 in the morning and 2 at night has been shown to be just as affective as breaking it up 4 times a day and increases adherent so she is going to try this. Return office visit in 6 weeks. (2) GERD (gastroesophageal reflux disease): Comment: sees [facility]- September angie Code(s): K21.9 - Gastro-esophageal reflux disease without esophagitis Medications: New [id number] 24,000-76,000 -120,000 unit (Creon) administer with meals and/or snacks 1 cap PO BID 30 days 60 caps 6RF K58.9 - Irritable bowel syndrome without diarrhea Refilled simethicone after meals 180 mg PO QID 30 days 120 caps 6RF Coding Level of Care Code Est Pt Level 3 (73079) Diagnoses Irritable bowel syndrome with diarrhea K58.0 GERD (gastroesophageal reflux disease) K21.9
[2023-03-24 11:44] VITALS: BP 161/86; PULSE 94; BMI 25.8
== END 2023-03-24 13:03 | disposition home or self-care (01) ==
PROVIDERS: Visit Provider Nurse Practitioner
DX: K58.0 Irritable bowel syndrome with diarrhea (principal); K21.9 Gastro-esophageal reflux disease without esophagitis
CPT/HCPCS: 99213

== ENCOUNTER → 2023-03-24 11:40 | Outpatient (BNVA) | payer OTHER, SELFPAY | PROVIDERS: Visit Provider Nurse Practitioner | DX: K58.0 Irritable bowel syndrome with diarrhea (principal); K21.9 Gastro-esophageal reflux disease without esophagitis | CPT/HCPCS: 99212 ==

== ENCOUNTER → 2023-03-27 10:46 | Outpatient (REF) | payer OTHER, SELFPAY ==
--- NOTE | 2023-03-27 10:48 | CA_ITS ---
Transthoracic Echocardiogram Patient (Last, First, Middle): Magy Fitzgerald I Gender: Female Date of : 1955 Age: 68 Procedure Date: 03/27/2023 Procedure Type: Transthoracic Echocardiogram Location: OP Height: 157.48 cm Weight: 62.6 kg BSA: 1.63 m2 Heart Rate: 75 bpm BP: 160 / 80 mmHg [employer] Mathematics Teacher: NATHALIE Referring MD: Aubrie Salas RN [facility] Symptoms: R07.2 - Precordial pain Study Quality: Adequate ECG Rhythm: Sinus Conclusions: - Normal left ventricular size and systolic function. There is moderately increased left ventricular wall thickness. The visually estimated ejection fraction is between 60-65%. - E/E prime ratio is between 8 and 15 consistent with indeterminate filling pressures. - Normal right ventricular cavity size and systolic function. - There is mild dilatation of the ascending aorta measuring 3.40 cm. Findings Left Ventricle Normal left ventricular size and systolic function. There is moderately increased left ventricular wall thickness. The visually estimated ejection fraction is between 60-65%. There is no evidence of regional wall motion abnormalities. Abnormal diastolic function is noted. Spectral Doppler is indicative of an impaired relaxation filling pattern. E/E prime ratio is between 8 and 15 consistent with indeterminate filling pressures. Right Ventricle Normal right ventricular cavity size and systolic function. Atria The left atrium is normal in size. The right atrium is normal in size. Aortic Valve Normal aortic valve structure and function. There is no aortic valve stenosis. There is no aortic valve regurgitation. Mitral Valve Normal mitral valve structure and function. There is no mitral valve regurgitation. There is no mitral valve stenosis. Pulmonic Valve The pulmonic valve is likely normal. Tricuspid Valve Normal tricuspid valve structure. There is no tricuspid valve regurgitation. Normal right atrial pressure. There is no evidence of pulmonary hypertension. Great Vessels There is mild dilatation of the ascending aorta measuring 3.40 cm. The visualized portions of the pulmonary artery and branches are normal. Venous The inferior vena cava is normal in size and collapses greater than 50% with inspiration. Pericardium/Pleural There is no evidence of pericardial effusion. Prior Study Comparison No significant change compared to prior study dated: 09/06/2020. Measurements 2D Linear Measurements IVSd: 1.49 0.6-0.9/0.6-1.0 cm LVIDd: 3.85 3.9-5.3/4.2-5.9 cm LVIDd Index: 2.36 2.4-3.2/2.2-3.1 cm/m2 LVIDs: 2.67 2.0-3.6 cm LVPWd: 1.24 0.7-1.1 cm LA Diam: 3.10 2.7-3.8/3.0-4.0 cm LAIDs Index: 1.90 1.5-2.3 cm/m2 LV Mass: 236.94 67-162/88-224 g LV Mass Index: 145.36 43-95/49-115 g/m2 LVOT Diam: 1.90 3.0+(-)1.3 cm 2D Systolic Function EF 4C: 55.10 >55% EF 2C: 59.50 >55% EF BiP: 57.60 >55% Mitral Valve MV Pk E: 0.60 MV PK A: 0.90 MV Decel Time: 169.00 E/A: 0.70 E'Lateral: 4.68 E'Medial: 3.81 E/E' Med: 15.90 E/E' Lat: 12.90 PHT: 49.00 MVA PHT: 4.49 Decel [place]: 3.58 Aortic Valve AoV Pk Tyler: 1.26 AoV Mn Tyler: 0.87 AoV VTI: 0.27 AoV Pk Grad: 6.00 Aov Mn Grad: 3.00 ODILON Cont.VTI: 2.29 LVOT LVOT Pk Tyler: 1.01 LVOT Mn Tyler: 0.69 LVOT VTI: 0.22 LVOT Pk Grad: 4.00 LVOT Mn Grad: 2.00 LVOT Diam: 1.90 LVOT Area: 2.84 Diastolic Function MV Pk E: 0.60 MV Pk A: 0.90 E/A: 0.70 E'Medial: 3.81 E/E' Med: 15.90 E' Laterial: 4.68 E/E' Lat: 12.90 Right Ventricle TAPSE (mm): 21.50 TVS' Tyler: 12.40 Tricuspid Valve TR Pk Tyler: 2.34 TR Pk Grad: 22.00 RA Press: 3.00 RVSP: 25.00 Great Vessels Aorta Sinus of Valsalva: 3.10 2.0-3.5 cm Ao Asc: 3.40 2.1-3.4 cm Pulmonary Valve PV Pk Tyler: 0.68 Peak PV Grad: 2.00 Updated in Other Vendor System with Status of Final Duke Izaguirre MD electronically signed on 03/29/2023 10:06:09 PM with status of Final
== END ==
LOC: HO.CARD 10:46
PROVIDERS: PCP Internal Medicine; Visit Provider Nurse Practitioner Family
DX: Z12.31 Encounter for screening mammogram for malignant neoplasm of breast (principal); R07.2 Precordial pain; E78.5 Hyperlipidemia, unspecified; I10 Essential (primary) hypertension; E11.9 Type 2 diabetes mellitus without complications
CPT/HCPCS: 77063; 77067; 93306

== ENCOUNTER → 2023-03-27 10:48 | Outpatient (BNV) | payer OTHER, SELFPAY | PROVIDERS: PCP Internal Medicine; Visit Provider Internal Medicine Cardiovascular Disease | DX: R07.2 Precordial pain (principal) | CPT/HCPCS: 93306 ==

== ENCOUNTER → 2023-03-27 12:30 | Outpatient (BNV) | payer OTHER, SELFPAY | PROVIDERS: PCP Internal Medicine; Visit Provider Radiology Diagnostic Radiology | DX: Z12.31 Encounter for screening mammogram for malignant neoplasm of breast (principal) | CPT/HCPCS: 77063; 77067 ==

== ENCOUNTER → 2023-05-21 08:28 | Outpatient (REF) | payer OTHER, SELFPAY ==
--- NOTE | ~2023-05-21 | NM_ITS ---
Lexiscan Myocardial perfusion study Indication: Chest pain Technique: The patient was brought in for a Lexiscan perfusion study on 05/21/2023 and was injected 0.4 mg of Lexiscan intravenously. Within a minute of this injection 25 mCi of sestamibi was given intravenously. Images were obtained using the SPECT gamma camera interlaced with the gating device. Images were obtained in supine position. Resting perfusion study was performed on 05/22/2023. Patient was administered 25 mCi of sestamibi intravenously at rest. Images were then obtained in supine position. Images were processed with the software and compared side to side in short axis, horizontal long axis and vertical long axis views. Total DLP 79mGym-cm. Findings: Raw acquisition reviewed. The stress perfusion study showed no significant perfusion abnormality. Both uncorrected as well as CT attenuation corrected images were reviewed. The gated study shows normal LV systolic function with calculated LVEF of 50%, but visually appears higher. LV cavity is normal in size. The gated study shows normal wall thickening and contraction of segments. Resting study shows no significant perfusion abnormality. Gating at rest reveals normal wall motion with ejection fraction at 66%. The findings are consistent with no clear reversible or fixed perfusion defects. NM/NM cardiolite stress test Impression: 1. Myocardial perfusion imaging study shows normal myocardial perfusion. 2. Gated LVEF is 50% during stress but visually appears normal. During rest-66%. 3. Transient ischemic dilatation not present. EKG component of the test reported separately.
--- NOTE | 2023-05-21 08:30 | CA_ITS ---
Acquisition Time: 2023-05-21 08:55:53 Total Exercise Time: 00:02:00 Test Indications: CP Medications: HCTZ METFORMIN INSULIN Protocol: LEXISCAN Max HR: 116 BPM 75% of Pred: 153 BPM Max BP: 148/082 mmHG Max Work Load: 1.6 METS Pharmacolgical stress test with lexiscan injection while walking slowly on treadmill, without anginal symptoms, without arrhythmias, with normotensive response to injection, with nondiagnoistic EKGs. Aminophylle 75mg IVp given to reverse Lexiscan. Nuclear images pending. Test reviewed with Dr. Mehta Referred By: Aubrie Salas Overread By: Jaymie Degroot
== END ==
LOC: HO.CARD 08:28
PROVIDERS: PCP Internal Medicine; Visit Provider Nurse Practitioner Family
DX: R07.2 Precordial pain (principal)
CPT/HCPCS: 78452; 93017; A9500; J0280; J2785

== ENCOUNTER → 2023-05-21 08:30 | Outpatient (BNV) | payer OTHER, SELFPAY | PROVIDERS: PCP Internal Medicine; Visit Provider Nurse Practitioner | DX: R07.2 Precordial pain (principal) | CPT/HCPCS: 78452; 93016; 93018 ==

== ENCOUNTER 2023-06-20 09:17 | Outpatient (REF) | payer OTHER, SELFPAY ==
[2023-06-20 11:37] LABS: Estimated Average Glucose 160 mg/dL; Hemoglobin A1c % 7.2 % (<6.0)
[2023-06-20 11:57] LABS: Alanine Aminotransferase 12 U/L (0-31); Albumin Level 4.3 g/dL (3.5-5.0); Alkaline Phosphatase 75 U/L (39-117); Amylase 358 U/L (28-100); Anion Gap 10 (12-20); Aspartate Amino Transferase 18 U/L (5-31); Bilirubin Total 0.4 mg/dL (0.0-1.0); Blood Urea Nitrogen 16 mg/dL (9-16); Carbon Dioxide 28 mmol/L (22-29); Chloride 106 mmol/L (96-108); Cholesterol 173 mg/dL (<200); Estimated Glomerular Filt Rate > 60; Glucose Fasting 165 mg/dL (60-99); HDL Cholesterol 52 mg/dL (>40); LDL Cholesterol Calculated 85 mg/dL (<100); Potassium 3.4 mmol/L (3.3-5.1); Sodium 141 mmol/L (135-145); Total Protein 7.6 g/dL (6.5-8.0); Triglycerides 183 mg/dL (<150)
[2023-06-20 12:04] LABS: Free T4 (Free Thyroxine) 0.78 ng/dL (0.71-1.85); Thyroid Stimulating Hormone 13.46 uIU/mL (0.32-4.0); Vitamin D 25-OH Total 36.1 ng/mL (>30)
[2023-06-20 12:05] LABS: Lipase 329 U/L (8-78)
== END 2023-06-20 09:18 | disposition home or self-care (01) ==
LOC: HO.HMGCLDS 09:17
PROVIDERS: PCP Internal Medicine; Visit Provider Internal Medicine
DX: E11.9 Type 2 diabetes mellitus without complications (principal); I73.9 Peripheral vascular disease, unspecified; D12.6 Benign neoplasm of colon, unspecified; E04.2 Nontoxic multinodular goiter; I10 Essential (primary) hypertension; E89.0 Postprocedural hypothyroidism; E55.9 Vitamin D deficiency, unspecified; R74.8 Abnormal levels of other serum enzymes; D51.0 Vitamin B12 deficiency anemia due to intrinsic factor deficiency; Z79.4 Long term (current) use of insulin
CPT/HCPCS: 36415; 80053; 80061; 82043; 82150; 82306; 82570; 82607; 82746; 83036; 83690; 84439; 84443

== ENCOUNTER 2023-06-25 09:51 | Outpatient (AMB) | payer OTHER, SELFPAY ==
--- NOTE | 2023-06-25 09:59 | A.OFFVIS_ITS ---
Intake Vital Signs 06/25/23 10:07 Height 5 ft 2 in Weight 144 lb 6.444 oz BMI 26.4 BP 168/88 H Blood Pressure Location Rt brachial Position Sitting Pulse 85 Pulse Source Pulse Oximeter Intake Visit Reasons: DM/CONFIRMED Intake Note: Patient present today to follow up on Type 2 Diabetes Mellitus. Last seen by Dr. Coulter on 07/24/2022. Last Diabetic Eye exam: 09/15/2022 [facility]. 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 She is seen in F/U. The patient last saw Dr. Coulter on 07/24/2022. Today's visit focus is on type 2 diabetes 1) Toxic MNG: She moved here from [facility] and established care with new PCP. PCP ordered thyroid ultrasound 03/15/18. This revealed multiple thyroid nodules, 4 nodules within the R lobe and 4 nodules within the L lobe. She was subsequently referred to Endocrinology. Review of records from her former [facility] in [facility] reveals prior FNA biopsy 08/23/13 of 3 nodules, all benign. The 3 nodules biopsied were the R lower pole 1.6 cm nodule (now 1.8 cm) - benign; R upper pole 1.1 cm nodule - benign; L upper 2.2 cm nodule - benign. She was found to be hyperthyroid with suppressed TSH, with uptake and scan consistent with a toxic MNG. She did meet with Dr. Becerra to discuss todal thyroidectomy, but this was thought to be a risky procedure as she requires preoperative plasmapheresis due to her myasthenia gravis. Discussion was held with Dr. Becerra with decision to proceed with I131 ablation with FNA of any concerning appearing nodules. She underwent I131 ablation with 11.56 millicurries 05/02/19. She is currently on levothyroxine 150 mcg PO daily. TSH is now in the hyperthyroid range. She underwent FNA biopsy 07/04/2021 of her RMP 1.3 cm thyroid nodule, with benign cytology. At that time there were no nodules visualized in the L lobe of the thyroid. The L lobe was diffusely heterogenous with multiple pseudonodules, but no true nodues. 2) Hypercalcemia: She also reports a history of primary hyperparathyroidism. She had 2 parathyroid glands removed in 2013 in [facility]. She has had recurrent kidney stones. She does not take Vitamin D. She has had no fractures. She does report a history of Osteoporosis, but this does appear to have resolved as her recent BMD was normal as of 08/27/18. She did have labs that are concerning for recurrence of hyperparathyroidism with elevated PTH. Calcium remained normal, but on repeat labs 02/25/19 this was again elevated to 10.3. She was on HCTZ 25 mg PO daily. HCTZ was stopped and she had labs repeated 4 weeks later. Labs 06/24/2019 were WNL with PTH 46, Calcium 9.9. She remained off HCTZ but then developed obstructive nephrolithiasis which she was hospitalized for in [facility] recently. She was resumed on HCTZ 25 mg PO daily, and remains on this now. 3) T2DM: Initially diagnosed with T2DM in 2006 during a routine screening exam. Currently using Metformin 1000 mg PO BID, Lantus 12 units daily( not taking ) She was started on Jardiance 25 mg PO daily, but did not take this due to her being concerned about vaginal yeast infection. She tried and failed Januvia 100 mg PO daily. . She was on Trulicity but this was discontinued due to pancreatitis. However, patient still taking Trulicity 0.75 mg q.week She did not bring her meter with her today. Reports symptoms of hypoglycemia with sugar in the 80's. Will treat these symptoms with candy. Does not check sugar after. Family history of T2DM in her mother. Does not have eyes checked yearly, last eye exam 1 years ago 08/2022 has appt 09/2023 , no known retinopathy. Has neuropathy. Has nephropathy, on Ramipril 10 mg PO daily. UAC 243.0 07/15/2022. Following with Dr. Mcneill from Nephrology. Has HLD, on Rosuvastatin 40 mg PO daily which she started in November 2019. LDL 276 07/15/2022. She reports poor compliance. No history of CAD, but did have CVA in the past. Diet: eats a lot of sweets Weight: Stable Has had diabetes education. CT Neck 06/05/2020: FINDINGS: No cervical adenopathy is identified. The parotid glands are homogeneous in attenuation. The submandibular glands are normal. No contour abnormality or pathologic enhancement is seen within the oral cavity or pharyngeal mucosal space. The laryngeal structures are normal. The parapharyngeal fat is preserved. The carotid sheath vasculature opacify normally. No extra mucosal soft tissue mass or fluid collection is seen. No retropharyngeal fluid collection is seen. The thyroid gland is normal. The superior mediastinum is unremarkable. The lung apices are clear. There is a small polyp or retention cyst floor of left maxillary sinus. Rest of the paranasal sinuses are well expanded and clear. There is small cysts seen in both lung apices. The temporomandibular joints are normal. No periapical disease is identified. No osseous abnormalities are seen. The imaged portions of the brain parenchyma are unremarkable. Thyroid US 11/09/2020: 06/23/2022 Right Thyroid Lobe: 2.9 x 1.2 x 1.2 cm, volume 2.2 mL. Previously 3.6 x 1.4 x 1.2 cm, volume 3.2 mL. Parenchyma: The gland echotexture is heterogeneous. Thyroid vascularity is normal. Left Thyroid Lobe: 3.2 x 1.3 x 1.0 cm, volume 2.2 mL. Previously 3.6 x 1.7 x 1.5 cm, volume 4.8 mL. Parenchyma: The gland echotexture is heterogeneous. Thyroid vascularity is normal. Isthmus: 0.2 cm in maximum AP dimension. Previously 0.2 cm. Estimated total number of nodules greater than or equal to 1 cm: 1. Order Takers Supervisor nodules are described as follows: 1.? Location: Right superior. ?? ? Size: 0.26 x 0.18 x 0.26 cm, volume 0.005 mL. ?? ? Previously: 0.4 x 0.2 x 0.2 cm, volume 0.01 mL. ?? ? Nodule characteristics: ?? ? Composition: Solid (2). ?? ? Echogenicity: Hyperechoic (1). ?? ? Shape: Not taller than wide (0). ?? ? Margins: Smooth (0). ?? ? Echogenic Foci: Macrocalcifications (1). ? ACR TI-RADS total points: 4 Previous: 4 ?? ? ACR TI-RADS category: 4 Previous: 4 ? Significant change in size (>/= 20% in 2 dimensions and minimal increase of 2 mm or 50% or greater increase in volume): None. ?? ? Change in features: None. ?? ? Change in ACR TI-RADS risk category: No change. 2.? Location: Right mid. ?? ? Size: 0.42 x 0.38 x 0.41 cm, volume 0.034 mL. ?? ? Previously: 0.5 x 0.5 x 0.4 cm, volume 0.05 mL. ?? ? Nodule characteristics: ?? ? Composition: Solid (2). ?? ? Echogenicity: Isoechoic (1). ?? ? Shape: Not taller than wide (0). ?? ? Margins: Smooth (0). ?? ? Echogenic Foci: None (0). ? ACR TI-RADS total points: 3 Previous: 6 ?? ? ACR TI-RADS category: 3 Previous: 4 ? Significant change in size (>/= 20% in 2 dimensions and minimal increase of 2 mm or 50% or greater increase in volume): None. ?? ? Change in features: None. ?? ? Change in ACR TI-RADS risk category: Improved. 3.? Location: Right inferior. ?? ? Size: 1.2 x 0.9 x 0.9 cm, volume 0.39 mL. ?? ? Previously: 1.3 x 1.0 x 0.9 cm, volume 0.6 mL. ?? ? Nodule characteristics: ?? ? Composition: Solid (2). ?? ? Echogenicity: Isoechoic (1). ?? ? Shape: Not taller than wide (0). ?? ? Margins: Smooth (0). ?? ? Echogenic Foci: Peripheral calcifications (2).? ACR TI-RADS total points: 5 Previous: 11 ?? ? ACR TI-RADS category: 4 Previous: 5 ? Significant change in size (>/= 20% in 2 dimensions and minimal increase of 2 mm or 50% or greater increase in volume): No change. ?? ? Change in features: No change. ?? ? Change in ACR TI-RADS risk category: Decreased. 4.? Location: Left superior. ?? ? Size: 0.5 x 0.5 x 0.4 cm, volume 0.03 mL. ?? ? Previously: 1.3 x 0.5 x 0.5 cm, volume 0.2 mL. ?? ? Nodule characteristics: ?? ? Composition: Solid (2). ?? ? Echogenicity: Hyperechoic (1). ?? ? Shape: Not taller than wide (0). ?? ? Margins: Smooth (0). ?? ? Echogenic Foci: Macrocalcifications (1). ?? ? ACR TI-RADS total points: 4 Previous: 5 ?? ? ACR TI-RADS category: 4 Previous: 4 ? Significant change in size (>/= 20% in 2 dimensions and minimal increase of 2 mm or 50% or greater increase in volume): Decreased. ?? ? Change in features: None. ?? ? Change in ACR TI-RADS risk category: Decreased. 5.? Location: Left mid. ?? ? Size: 0.7 x 0.6 x 0.3 cm, volume 0.06 mL. ?? ? Previously: 0.6 x 0.3 x 0.3 cm, volume 0.02 mL. ?? ? Nodule characteristics: ?? ? Composition: Solid (2). ?? ? Echogenicity: Hyperechoic (1). ?? ? Shape: Not taller than wide (0). ?? ? Margins: Ill-defined (0). ?? ? Echogenic Foci: Macrocalcifications (1).? ACR TI-RADS total points: 4 Previous: 4 ?? ? ACR TI-RADS category: 4 Previous: 4 ? Significant change in size (>/= 20% in 2 dimensions and minimal increase of 2 mm or 50% or greater increase in volume): No change. ?? ? Change in features: No change. ?? ? Change in ACR TI-RADS risk category: No change. NODES: No lymphadenopathy is seen in the tissue surrounding the thyroid gland. DEXA: 08/27/18 AP SPINE L1-L3 (excluding L4): The data of L1-L4 has been changed to exclude the L4 vertebral body, because degenerative changes at this level may cause overestimation of lumbar spine density. BMD 1.058 g/cm2, Z-score 0.3, T-score -0.9, normal. LEFT FEMUR, NECK: BMD 0.933 g/cm2, Z-score 0.5, T-score -0.8, normal. LEFT FEMUR, TOTAL: BMD 1.007 g/cm2, Z-score 0.9, T-score 0.0, normal. LEFT FOREARM RADIUS 33%: BMD 0.846 g/cm2, Z-score 0.8, T-score -0.3, normal. Labs: Laboratory Tests 07/15/22 07/15/22 07/15/22 09:50 09:50 09:50 Sodium 138 Potassium 4.1 Creatinine 0.80 Estimated GFR > 60 Hemoglobin A1c % 10.1 Triglycerides 155 Cholesterol 340 LDL Cholesterol Di rect 276 H HDL Cholesterol 54 Vitamin B12 466 TSH 4.84 H Free T4 Microalb/Creat Rat io 07/15/22 07/15/22 09:50 09:50 Sodium Potassium Creatinine Estimated GFR Hemoglobin A1c % Triglycerides Cholesterol LDL Cholesterol Di rect HDL Cholesterol Vitamin B12 TSH Free T4 1.26 Microalb/Creat Rat io 243.0 [facility] Medical History (Updated 06/11/23 @ 06:12 by Bernadette De Souza MD) Diabetes mellitus, with long-term current use of insulin Mass of left thigh Pain, lower/upper extremity Urinary, incontinence, stress female Positional lightheadedness Wheezing History of amputation of toe Amputation of left great toe Vitamin B12 deficiency Pain in left lower leg Pain in left foot Occlusion of stent of peripheral artery Personal history of nicotine dependence Chronic low back pain History of CVA (cerebrovascular accident) (~10/2020) History of kidney stones Tubular adenoma of colon COVID-19 vaccine series declined Colitis without complication Ureteral stone with hydronephrosis Pain of plantar aspect of heel Myasthenia gravis Pernicious anemia Myasthenia gravis Urge urinary incontinence Microalbuminuria Vitamin D deficiency Hypercalcemia Hypothyroidism Multinodular thyroid HTN (hypertension) Kidney calculi Surgical History History of surgery History of amputation of toe Hx of blood clots Status post biopsy of thyroid gland (~2021) History of colonoscopy History of esophagogastroduodenoscopy (EGD) History of bilateral cataract extraction (~2019) History of parathyroidectomy History of lithotripsy (~2013) History of hernia repair History of hysterectomy (~1984) Family History Father Lung cancer Mother Asthma Diabetes HTN (hypertension) Heart attack Sister FH: mental illness Leukemia Mental health disorder Social History Household Members: None Housing: Apartment Alcohol intake: current Alcohol intake frequency: does not drink Patient Tobacco Use Status: Former Tobacco user Tobacco use type: Cigarette Years Smoked: 45 +/- e-Cigarette/Vaping Use: Never Used Advance Directives Date on File: 03/03/22 service: No Current occupational status: disabled Cognitive needs: No Hearing needs: No Vision needs: No Physical Exam Vital Signs: BMI result Body Mass Index 26.4 Absence of Cushingoid features. Absence of acromegalic features. Neck exam reveals nl size thyroid about 15 gms. No thyroid nodules palpable. No carotid bruits present. Lungs CTA. Heart S1 S2, Reg R/R. No M/R/ G. Skin exam reveals absence of vitiligo or acanthosis nigricans. Abdominal exam reveals Soft NT/ND with NA BS. No organomegaly present. Neck Other: . Extrem Other: Visual exam of foot performed. R 5th digit amputation No ulcerations or open lesions. No onchomycosis, no callouses.Pulses 2 + distally Sensation intact to monofilament exam. Vibratory sensation sensed is decreased with 128 Hz tuning fork Assessment & Plan Assessment & Plan (1) Diabetes mellitus, with long-term current use of insulin: Code(s): E11.9 - Type 2 diabetes mellitus without complications; Z79.4 - salvage determiner (current) use of insulin Plan: This is a 68-year-old female with a history of type 2 diabetes currently being treated metformin and basal insulin with fair glycemic control and recent history of pancreatitis and known microvascular complications namely neuropathy and CKD. Plan is to have the patient check her point cares before and 2 hours after meals. There was not enough information to adjust the regimen today. I will have the patient stop the Trulicity in light of the recent episode of pancreatitis but resume the Lantus. We will talk to the patient about restarting a sensor namely Oren. Will schedule follow-up appointments with the health educator and furnace checker. Explained to patient relationship the poor glycemic control development of progression of complications Orders: Referrals Diabetes Education Referral E11.9 - Type 2 diabetes mellitus without complications, Z79.4 - senior living (current) use of insulin Nutrition/Dietitian Referral E11.9 - Type 2 diabetes mellitus without complications, Z79.4 - senior living (current) use of insulin Medications: New flash glucose sensor (FreeStyle Oren 2 Sensor kit) As directed change every 14 days 2 ea 4RF flash glucose scanning reader (FreeStyle Oren 2 Surfside) As directed 1 ea 0RF Refilled insulin glargine (Lantus Solostar U-100 Insulin) 12 units (0.12 mL) subcut BEDTIME 30 days 3.6 mL 11RF metformin 1,000 mg PO BID 60 tabs 5RF E89.0 - Postprocedural hypothyroidism Coding Level of Care Code Est Pt Level 4 (51912) Diagnoses Diabetes mellitus, with long-term current use of insulin E11.9; Z79.4
[2023-06-25 10:07] VITALS: BP 168/88; PULSE 85; BMI 26.4
[2023-06-25 10:28] LABS: Glucose, Whole Blood 130 mg/dL (60-115)
== END 2023-06-25 11:52 | disposition home or self-care (01) ==
PROVIDERS: PCP Internal Medicine; Visit Provider Internal Medicine Endocrinology, Diabetes & Metabolism
DX: E11.9 Type 2 diabetes mellitus without complications (principal); Z79.4 Long term (current) use of insulin
CPT/HCPCS: 99214

== ENCOUNTER → 2023-06-25 09:51 | Outpatient (BNVA) | payer OTHER, SELFPAY | PROVIDERS: Visit Provider Internal Medicine Endocrinology, Diabetes & Metabolism | DX: E11.9 Type 2 diabetes mellitus without complications (principal); Z79.4 Long term (current) use of insulin | CPT/HCPCS: 82947; 99212 ==

== ENCOUNTER 2023-07-23 11:34 | Outpatient (AMB) | payer OTHER, SELFPAY ==
--- NOTE | 2023-07-23 11:36 | A.OFFVIS_ITS ---
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 The Pt was referred by Dr. Hope, ux architect. Pt reports typical meal: Reports that meals very all the time he only consistency is 9-10 coffee with milk - no sugar added Reports fat before 17:00 she typically has water, has reduced appetite related to physical activity, getting occupied with different daily life activities 5pm : beef stew (banana, pork feet, yaut ia), juice pineapple Snack around 8 or so: crackers food frequency: fruits: not including , fish: once /wk dairy: cheese mostly vegetables: 2x/wk beverages: jie/juices fried foods : air fryer physical activity: daily life activity etoh: denies cigarette: 0-1 /month XAG-Xbaivoa-Gk.Jeor Equation Height 5 ft 2 in Weight 145 lb Resting Metabolic Rate 1150.66 Calculated Activity Level Mild Activity Calories Needed to Maintain Weight 1582.16 Diagnosis Nutrition problem #1 food nutri know defi As related to (etiology) #1 diagnosis As evidenced by (sign/symptom) #1 knowledge deficit of diet Most Recent Diabetes Results: Microalb/Creat Ratio 288.6 ug/mg cr (<30) H 06/20/23 Cholesterol 173 mg/dL (<200) 06/20/23 HDL Cholesterol 52 mg/dL (>40) 06/20/23 Triglycerides 183 mg/dL (<150) H 06/20/23 Creatinine 0.79 mg/dL (0.5-1.4) 06/20/23 Blood Urea Nitrogen 16 mg/dL (9-16) 06/20/23 Sodium 141 mmol/L (135-145) 06/20/23 Potassium 3.4 mmol/L (3.3-5.1) 06/20/23 Chloride 106 mmol/L (96-108) 06/20/23 Carbon Dioxide 28 mmol/L (22-29) 06/20/23 Calcium 10.0 mg/dL (8.4-10.2) 06/20/23 AST 18 U/L (5-31) 06/20/23 ALT 12 U/L (0-31) 06/20/23 Total Protein 7.6 g/dL (6.5-8.0) 06/20/23 Albumin 4.3 g/dL (3.5-5.0) 06/20/23 [facility] Medical History (Updated 06/11/23 @ 06:12 by Bernadette De Souza MD) Diabetes mellitus, with long-term current use of insulin Mass of left thigh Pain, lower/upper extremity Urinary, incontinence, stress female Positional lightheadedness Wheezing Amputation of left great toe Vitamin B12 deficiency Pain in left lower leg Pain in left foot Occlusion of stent of peripheral artery Personal history of nicotine dependence Chronic low back pain History of CVA (cerebrovascular accident) (~10/2020) History of kidney stones Tubular adenoma of colon COVID-19 vaccine series declined Colitis without complication Ureteral stone with hydronephrosis Pain of plantar aspect of heel Myasthenia gravis Pernicious anemia Myasthenia gravis Urge urinary incontinence Microalbuminuria Vitamin D deficiency Hypercalcemia Hypothyroidism Multinodular thyroid HTN (hypertension) Kidney calculi Surgical History History of surgery History of amputation of toe Hx of blood clots Status post biopsy of thyroid gland (~2021) History of colonoscopy History of esophagogastroduodenoscopy (EGD) History of bilateral cataract extraction (~2019) History of parathyroidectomy History of lithotripsy (~2013) History of hernia repair History of hysterectomy (~1984) Family History Father Lung cancer Mother Asthma Diabetes HTN (hypertension) Heart attack Sister FH: mental illness Leukemia Mental health disorder Social History Household Members: None Housing: Apartment Alcohol intake: current Alcohol intake frequency: does not drink Patient Tobacco Use Status: Former Tobacco user Tobacco use type: Cigarette Years Smoked: 45 +/- e-Cigarette/Vaping Use: Never Used Advance Directives Date on File: 09/19/22 service: No Current occupational status: disabled Cognitive needs: No Hearing needs: No Vision needs: No Assessment & Plan Assessment & Plan (1) Diabetes mellitus, with long-term current use of insulin: Code(s): E11.9 - Type 2 diabetes mellitus without complications; Z79.4 - synthetic staple extruder (current) use of insulin Plan: Wt: 66 Kg ( 07/23/23 ) Est kcal needs as per MSJ: 1600 (40% carb, 30% protein/fat) Est fluid needs as per 25 ml/d: 1700 Est prot per day as per 1 g/kg bw: 66 Recommend fiber intake : 8-10 g per day and gradually increase to 25-28 g per day for women and 35-38 g for men or as tolerated Recommend sodium intake per day : less than 2000 mg Educated patient on: ( R = reviewed V = verbalizes understanding N/R = needs review N/A = not applicable * Food sources of carbohydrate, adequate serving sizes and its role in various health conditions: R * Differences between complex carbohydrates a simple carbohydrates, role of fiber in diet: R * Lean protein sources of foods: R * Differences between types of fats and role in diet (mono on saturated fat fatty acids, saturated fatty acids, trans fats): N/R * Food sources of sodium in salt and healthy modifications for heart health in kidney health: NR * Vitamins and minerals: N/R * Healthy plate method concept: R * Physical activity: Benefits a precaution: N/R * Hypoglycemia protocol (rule of 15): R V * Dietary prevention of Hyperglycemia: R V Patient Instructions: Work on following healthy plate method Choose a fruit in place of juices, drink water with her meals See 1600 calorie meal plan as a reference Coding Level of Care Code Nutr Indiv Intake (68900) Diagnoses Diabetes mellitus, with long-term current use of insulin E11.9; Z79.4 Time Spent (min) 30
[2023-07-23 11:41] VITALS: BMI 26.5
[2023-07-27 14:32] VITALS: BMI 26.5
== END 2023-07-23 12:26 | disposition home or self-care (01) ==
PROVIDERS: PCP Internal Medicine; Visit Provider Dietitian, Registered
DX: E11.9 Type 2 diabetes mellitus without complications (principal); Z79.4 Long term (current) use of insulin

== ENCOUNTER → 2023-07-23 11:34 | Outpatient (BNVA) | payer OTHER, SELFPAY | PROVIDERS: PCP Internal Medicine; Visit Provider Dietitian, Registered | DX: E11.9 Type 2 diabetes mellitus without complications (principal); Z79.4 Long term (current) use of insulin | CPT/HCPCS: 97802 ==

== ENCOUNTER 2023-07-29 08:49 | Outpatient (AMB) | payer OTHER, SELFPAY ==
--- NOTE | 2023-07-29 09:33 | A.OFFVIS_ITS ---
Intake Intake Visit Reasons: [facility] (current) use of insulin [place] Required: No Accompanied by: Self / Same As Patient Allergies Penicillins [PCN] Allergy (Unknown, Verified 06/25/23 10:08) RASH gabapentin Adverse Reaction (Unknown, Verified 06/25/23 10:08) Dizziness HPI Comprehensive Diabetes Asmnt Most Recent Diabetes Results: Hemoglobin A1c 7.1 % 11/26/18 Microalb/Creat Ratio 288.6 ug/mg cr (<30) H 06/20/23 Cholesterol 173 mg/dL (<200) 06/20/23 HDL Cholesterol 52 mg/dL (>40) 06/20/23 Triglycerides 183 mg/dL (<150) H 06/20/23 Creatinine 0.79 mg/dL (0.5-1.4) 06/20/23 Blood Urea Nitrogen 16 mg/dL (9-16) 06/20/23 Sodium 141 mmol/L (135-145) 06/20/23 Potassium 3.4 mmol/L (3.3-5.1) 06/20/23 Chloride 106 mmol/L (96-108) 06/20/23 Carbon Dioxide 28 mmol/L (22-29) 06/20/23 Calcium 10.0 mg/dL (8.4-10.2) 06/20/23 AST 18 U/L (5-31) 06/20/23 ALT 12 U/L (0-31) 06/20/23 Total Protein 7.6 g/dL (6.5-8.0) 06/20/23 Albumin 4.3 g/dL (3.5-5.0) 06/20/23 [facility] Medical History (Updated 06/11/23 @ 06:12 by Bernadette De Souza MD) Diabetes mellitus, with long-term current use of insulin Mass of left thigh Pain, lower/upper extremity Urinary, incontinence, stress female Positional lightheadedness Wheezing Amputation of left great toe Vitamin B12 deficiency Pain in left lower leg Pain in left foot Occlusion of stent of peripheral artery Personal history of nicotine dependence Chronic low back pain History of CVA (cerebrovascular accident) (~10/2020) History of kidney stones Tubular adenoma of colon COVID-19 vaccine series declined Colitis without complication Ureteral stone with hydronephrosis Pain of plantar aspect of heel Myasthenia gravis Pernicious anemia Myasthenia gravis Urge urinary incontinence Microalbuminuria Vitamin D deficiency Hypercalcemia Hypothyroidism Multinodular thyroid HTN (hypertension) Kidney calculi Surgical History History of surgery History of amputation of toe Hx of blood clots Status post biopsy of thyroid gland (~2021) History of colonoscopy History of esophagogastroduodenoscopy (EGD) History of bilateral cataract extraction (~2019) History of parathyroidectomy History of lithotripsy (~2013) History of hernia repair History of hysterectomy (~1984) Family History Father Lung cancer Mother Asthma Diabetes HTN (hypertension) Heart attack Sister FH: mental illness Leukemia Mental health disorder Social History Household Members: None Housing: Apartment Alcohol intake: current Alcohol intake frequency: does not drink Patient Tobacco Use Status: Former Tobacco user Tobacco use type: Cigarette Years Smoked: 45 +/- e-Cigarette/Vaping Use: Never Used Advance Directives Date on File: 03/03/22 service: No Current occupational status: disabled Cognitive needs: No Hearing needs: No Vision needs: No Assessment & Plan Assessment & Plan (1) Diabetes mellitus, with long-term current use of insulin: Code(s): E11.9 - Type 2 diabetes mellitus without complications; 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 Assess patient education level/literacy/barriers Patient questions/concerns, patient uses Oren 2 glucose sensor to monitor glucose. Instructed patient she should check glucose sensor at a minimum every 4-6 hours while awake to capture all glucose data. Patient's average glucose for the past 2 weeks 182 mg/dL Patient above target 44% Patient at target 56% Patient below target 0% Patient's last A1c on 07/20/2023 7.2% Patient having postprandial excursion after evening meal, patient reports eating high starchy foods at dinnertime. Discussed with patient reducing portion of starchy vegetables, try to keep all carbohydrates to 45 g at suppertime Patient is prescribed Lantus 12 units daily, instructed patient to increase Lantus to 14 units. Patient glucose trends down overnight so I would not increase Lantus over 14 units Patient is also prescribed metformin 1000 mg b.i.d., but reports after evening metformin she tends to have stomach pain Recommended to patient to take metformin with food, if this does not alleviate GI issues request prescription for metformin XR from provider The patient met all learning objectives and was able to verbalize understanding and provide teach back of education topics discussed . The patient was provided with the opportunity to ask questions and all questions were answered. Topics covered in today?s session included: Medications (If applicable) * Name of medication? * Dosing/administration instructions? * Mechanism of action? * Potential side effects? * Potential adverse reaction and appropriate treatment? * Review onset, peak, duration Assess for concerns re: insurance coverage, cost, barriers to compliance Insulin/Injectables (If applicable) * Storage/care of insulin?? * Injection sites? * Site rotation? * Onset, peak, duration * Drawing up insulin? * Injecting insulin/other injectables? * Sharps disposal Continuous blood glucose monitoring (if applicable) Hypoglycemia and Hyperglycemia * Signs and symptoms? * Causes?? * Treatment? * Preventing hypoglycemia? * When to seek medical attention * Blood glucose targets and how you feel when your blood glucose is in and out of your target ranges. * Monitoring and knowing your A1C. * What can make blood glucose go up and down and preventing high and low blood glucose. * Review of blood sugar targets in expected goal range and outside of expected goal range. * Problem solving and preventing hyper/hypoglycemia. * Sick day management of diabetes. * Using blood sugar results in decision making process in managing diabetes. ?Patient was receptive to information provided and participated in the discussion. Asked?appropriate questions and demonstrated good understanding of the topics discussed.? ? Educational Materials: The patient was provided with the following written educational materials: Target Goal, common [place] foods handouts Patient Response to instructions: Comprehension of Instructions: fair Readiness to make changes:? contemplation How confident they feel about making changes:fair Plan Patient will follow-up with clinical staff educator in 4 months after appointment provider in August 2023 Patient instructed to contact clinical staff educator with questions or concerns Coding Level of Care Code Est Pt Level 1 (69201) Diagnoses Diabetes mellitus, with long-term current use of insulin E11.9; Z79.4
== END 2023-07-29 09:35 | disposition home or self-care (01) ==
PROVIDERS: PCP Internal Medicine; Visit Provider Registered Nurse Diabetes Educator
DX: E11.9 Type 2 diabetes mellitus without complications (principal); Z79.4 Long term (current) use of insulin

== ENCOUNTER → 2023-07-29 08:49 | Outpatient (BNVA) | payer OTHER, SELFPAY | PROVIDERS: PCP Internal Medicine; Visit Provider Registered Nurse Diabetes Educator | DX: E11.9 Type 2 diabetes mellitus without complications (principal); Z79.4 Long term (current) use of insulin | CPT/HCPCS: 99211 ==

== ENCOUNTER 2023-08-19 20:42 | Emergency (ER) | payer OTHER, SELFPAY ==
[2023-08-19 21:18] VITALS: BP 160/100; BP 195/97; PULSE 95; PULSE 97; RESP 18; TEMP 36.8; O2SAT 92; O2SAT 94; BMI 55.6
--- NOTE | 2023-08-19 21:30 | ED.EPISTAXIS ---
History of Present Illness General Chief Complaint: Epistaxis Stated Complaint: NOSEBLEED X1.5HRS AGO Time Seen by Provider: 08/19/23 21:29 Source: patient Mode of arrival: ambulatory History of Present Illness HPI Narrative: 68-year-old female with history of chronic anticoagulation who states that she was sitting at home when her nose began running and she thought that it was mucous but then realized it was blood at approximately 19:00 this evening. Patient was able to stop the bleeding with direct pressure. Related Data Home Medications Medication Instructions Recorded Confirmed mycophenolate mofetil 500 mg tablet 1,000 mg PO TID@0800,1300,1900 02/28/21 02/09/23 pyridostigmine bromide 180 mg 180 mg PO 0800,1300,1900,199910/24/21 02/09/23 tablet,extended release hydrochlorothiazide 25 mg tablet 25 mg PO DAILY@199910/25/21 02/09/23 clopidogrel 75 mg tablet 75 mg PO DAILY 02/09/23 02/09/23 dulaglutide 1.5 mg/0.5 mL mg subcut 06/25/23 subcutaneous pen injector ([facility]) Previous Rx's Medication Instructions Recorded blood sugar diagnostic (FreeStyle #100 ea 09/09/21 Lite Strips) blood-glucose meter (FreeStyle #1 ea 09/09/21 Lite Meter kit) lancets 28 gauge (FreeStyle #100 ea 09/09/21 Lancets) blood-glucose meter (FreeStyle #1 ea 04/21/22 Lite Meter kit) rosuvastatin 40 mg tablet 40 mg PO DAILY 90 days #90 tabs 02/11/23 qridwb-avlnposx-jqmzvpp 1 cap PO BID 30 days #60 caps 03/24/23 24,000-76,000-120,000 unit capsule,delayed rel (Creon) simethicone 180 mg capsule 180 mg PO QID 30 days #120 caps 03/24/23 ramipril 10 mg capsule 10 mg PO DAILY #30 caps 04/24/23 metoprolol succinate 25 mg 25 mg PO DAILY #90 tabs 05/11/23 tablet,extended release 24 hr incontinence pad, liner, disp #120 ea 05/27/23 nut.tx.gluc.intol,lac-free,soy 1 ea PO BID #60 ea 12/13/23 (Glucerna oral liquid) flash glucose scanning reader #1 ea 06/25/23 (FreeStyle Oren 2 [place]) flash glucose sensor (FreeStyle #2 ea 06/25/23 Oren 2 Sensor kit) insulin glargine 100 unit/mL (3 12 unit (0.12 mL) subcut BEDTIME 06/25/23 mL) subcutaneous pen (Lantus 30 days #3.6 mL Solostar U-100 Insulin) metformin 1,000 mg tablet 1,000 mg PO BID #60 tabs 06/25/23 oxybutynin chloride 15 mg 15 mg PO DAILY #90 tabs 07/10/23 tablet,extended release 24 hr levothyroxine 112 mcg tablet 112 mcg PO DAILY #90 tabs 07/21/23 pen needle, diabetic 32 gauge x #50 ea 07/22/23 (BD Ultra-Fine Marilee Pen Needle) Allergies Allergy/AdvReac Type Severity Reaction Status Date / Time Penicillins [PCN] Allergy Unknown RASH Verified 08/19/23 21:22 gabapentin AdvReac Unknown Dizziness Verified 08/19/23 21:22 Review of Systems Review of Systems: Pertinent positives and negatives as stated in HPI [facility] Past Medical History Source: nursing notes reviewed Medical History (Updated 08/19/23 @ 21:40 by Paulina Kessler MD) Diabetes mellitus, with long-term current use of insulin Mass of left thigh Pain, lower/upper extremity Urinary, incontinence, stress female Positional lightheadedness Wheezing Amputation of left great toe Vitamin B12 deficiency Pain in left lower leg Pain in left foot Occlusion of stent of peripheral artery Personal history of nicotine dependence Chronic low back pain History of CVA (cerebrovascular accident) (~10/2020) History of kidney stones Tubular adenoma of colon COVID-19 vaccine series declined Colitis without complication Ureteral stone with hydronephrosis Pain of plantar aspect of heel Myasthenia gravis Pernicious anemia Myasthenia gravis Urge urinary incontinence Microalbuminuria Vitamin D deficiency Hypercalcemia Hypothyroidism Multinodular thyroid HTN (hypertension) Kidney calculi Surgical History History of surgery History of amputation of toe Hx of blood clots Status post biopsy of thyroid gland (~2021) History of colonoscopy History of esophagogastroduodenoscopy (EGD) History of bilateral cataract extraction (~2019) History of parathyroidectomy History of lithotripsy (~2013) History of hernia repair History of hysterectomy (~1984) Family History Family History Father Lung cancer Mother Asthma Diabetes HTN (hypertension) Heart attack Sister FH: mental illness Leukemia Mental health disorder Social History Social History Household Members: None Housing: Apartment Alcohol intake: current Alcohol intake frequency: does not drink Patient Tobacco Use Status: Former Tobacco user Tobacco use type: Cigarette Years Smoked: 45 +/- Smoked in Last 30 Days: Yes e-Cigarette/Vaping Use: Never Used Use of substances other than those prescribed or required for medical reasons: No Advance Directives Date on File: 03/03/22 service: No Current occupational status: disabled Cognitive needs: No Hearing needs: No Vision needs: No Physical Exam Vital Signs: Vital Signs: Last Vital Signs Temp 98.2 F 08/19/23 21:18 Pulse 88 08/19/23 21:36 Resp 24 H 08/19/23 21:36 BP 129/81 08/19/23 21:36 Pulse Ox 92 08/19/23 21:18 O2 Del Method Room Air 08/19/23 21:18 BMI result Body Mass Index 55.6 VITAL SIGNS: Reviewed. GENERAL: Well developed, well nourished, in no acute distress. HEAD: Normocephalic/atraumatic EYES: PERRLA, EOMI NOSE: Nares patent bilateral, no exposed vessels, no stigmata of recent epistaxis, no intraoral stigmata of bleeding OROPHARYNX: no oral lesions noted, posterior pharynx clear and non-erythematous without noted tonsillar enlargement/erythema/exudates NECK: Supple, no adenopathy LUNGS: Normal breath sounds. No adventitious sounds or accessory muscle use. SpO2<92> CARDIOVASCULAR: Regular rate and rhythm without noted murmurs ABDOMEN: Soft, non-tender, non-distended with bowel sounds. MUSCULOSKELETAL: No tenderness, deformities, or effusions noted on gross inspection. EXTREMITIES: No cyanosis, clubbing or edema. SKIN: Inspection of the skin reveals no rashes NEUROLOGIC: Alert and oriented x 4. Strength and sensation to light touch were grossly intact x 4. Medical Decision Making Medical Decision Making MDM Narrative: 68-year-old female with history and clinical presentation of epistaxis, there is good hemostasis without obvious vessel to cauterize, my interpretation is this is a combination of high blood pressure/chronic anticoagulation. Patient is otherwise stable for discharge with instructions on limiting further nosebleeds. Differential Diagnosis Differential Diagnoses: The differential diagnosis associated with the presentation includes Please see the discussion above Admission/Observation Consideration of admission/observation: Escalation of care including admission/observation considered Please see the discussion above Discharge Plan Discharge Clinical Impression: Epistaxis, Chronic anticoagulation Patient Disposition: Home, Self-Care Instructions: Nosebleed (ED), Blood Thinners (ED) Additional Instructions: 1. Resume all home medications as prescribed 2. Recommend bedside cool mist humidifier, also recommend using grfj-wsz-aholnwr nasal saline spray (every 6-8 hours) 3. Follow-up with your primary care doctor in the next 2-3 days. Return to the ER for any worsening symptoms. Prescriptions: No Action ramipril 10 mg capsule 10 mg PO DAILY Qty: 30 5RF metoprolol succinate 25 mg tablet extended release 24 hr 25 mg PO DAILY Qty: 90 3RF Glucerna Liquid 1 ea PO BID Qty: 60 5RF Rx Instructions: Vanilla flavor (DME) incontinence pad, liner, disp Pad See Rx Instructions .Route Qty: 120 11RF Rx Instructions: As directed-use up to 4 per day oxybutynin chloride 15 mg tablet extended release 24hr 15 mg PO DAILY Qty: 90 1RF levothyroxine 112 mcg tablet 112 mcg PO DAILY Qty: 90 1RF (DME) pen needle, diabetic [BD Ultra-Fine Marilee Pen Needle] 32 gauge x 5/32 needle See Rx Instructions .ROUTE .MEDSUPPLY Qty: 50 10RF Rx Instructions: As directed once daily hydrochlorothiazide 25 mg tablet 25 mg PO DAILY@2000 mycophenolate mofetil 500 mg tablet 1,000 mg PO TID@0800,1300,1900 rosuvastatin 40 mg tablet 40 mg PO DAILY 90 Days Qty: 90 3RF (DME) FreeStyle Lite Strips Strip See Rx Instructions .ROUTE .MEDSUPPLY Qty: 100 11RF Rx Instructions: 4x daily (DME) blood-glucose meter [FreeStyle Lite Meter] Kit See Rx Instructions .Route Qty: 1 0RF Rx Instructions: As directed (DME) lancets [FreeStyle Lancets] 28 gauge misc See Rx Instructions .ROUTE .MEDSUPPLY Qty: 100 11RF Rx Instructions: 4x daily pyridostigmine bromide 180 mg tablet extended release 180 mg PO 0800,1300,1900,2000 (DME) blood-glucose meter [FreeStyle Lite Meter] Kit See Rx Instructions .Route Qty: 1 0RF Rx Instructions: As directed Trulicity 1.5 mg/0.5 mL pen injector subcut insulin glargine [Lantus Solostar U-100 Insulin] 100 unit/mL (3 mL) insulin pen 12 unit subcut BEDTIME 30 Days Qty: 3.6 11RF (DME) FreeStyle Oren 2 Sensor Kit See Rx Instructions .Route Qty: 2 4RF Rx Instructions: As directed change every 14 days (DME) FreeStyle Oren 2 [place] Misc See Rx Instructions .Route Qty: 1 0RF Rx Instructions: As directed metformin 1,000 mg tablet 1,000 mg PO BID Qty: 60 5RF Creon 24,000-76,000 -120,000 unit capsule,delayed release(DR/EC) 1 cap PO BID 30 Days Qty: 60 6RF Rx Instructions: administer with meals and/or snacks simethicone 180 mg capsule 180 mg PO QID 30 Days Qty: 120 6RF Rx Instructions: after meals clopidogrel 75 mg tablet 75 mg PO DAILY
[2023-08-19 21:36] VITALS: BP 129/81; PULSE 88; RESP 24
--- NOTE | 2023-08-19 21:57 | PC.NURSE ---
Patient d/c paperwork reviewed with patient, nasal clips given and demostrated use, patient and family verbalized understanding.
== END 2023-08-19 21:57 | disposition home or self-care (01) ==
LOC: HO.ED 21:48
PROVIDERS: Emergency Provider Student in an Organized Health Care Education/Training Program; PCP Internal Medicine
DX: R04.0 Epistaxis (principal); E11.9 Type 2 diabetes mellitus without complications; I10 Essential (primary) hypertension; Z86.73 Personal history of transient ischemic attack (TIA), and cerebral infarction without residual deficits; Z79.01 Long term (current) use of anticoagulants; Z79.4 Long term (current) use of insulin
CPT/HCPCS: 99282; 99284

== ENCOUNTER 2023-08-27 12:21 | Outpatient (AMB) | payer OTHER, SELFPAY ==
[2023-08-27 12:36] VITALS: BMI 25.9
--- NOTE | 2023-08-27 12:36 | MHC.AMNUTRGE ---
Intake VS Expanded 08/27/23 12:36 Height 5 ft 2 in Weight 141 lb 8.588 oz BMI 25.9 Intake Visit Reasons: T2DM/LVM Allergies Penicillins [PCN] Allergy (Unknown, Verified 08/19/23 21:22) RASH gabapentin Adverse Reaction (Unknown, Verified 08/19/23 21:22) Dizziness HPI Nutrition Presentation Details Pt presents for MNT f/u T2DM Pt reports working on diet modifications , has not monitored BG in the past 2 weeks related to moving from [facility]. Most Recent Diabetes Results: Microalb/Creat Ratio 288.6 ug/mg cr (<30) H 06/20/23 Cholesterol 173 mg/dL (<200) 06/20/23 HDL Cholesterol 52 mg/dL (>40) 06/20/23 Triglycerides 183 mg/dL (<150) H 06/20/23 Creatinine 0.79 mg/dL (0.5-1.4) 06/20/23 Blood Urea Nitrogen 16 mg/dL (9-16) 06/20/23 Sodium 141 mmol/L (135-145) 06/20/23 Potassium 3.4 mmol/L (3.3-5.1) 06/20/23 Chloride 106 mmol/L (96-108) 06/20/23 Carbon Dioxide 28 mmol/L (22-29) 06/20/23 Calcium 10.0 mg/dL (8.4-10.2) 06/20/23 AST 18 U/L (5-31) 06/20/23 ALT 12 U/L (0-31) 06/20/23 Total Protein 7.6 g/dL (6.5-8.0) 06/20/23 Albumin 4.3 g/dL (3.5-5.0) 06/20/23 [facility] Medical History (Updated 08/20/23 @ 00:01 by Background Shakila) Diabetes mellitus, with long-term current use of insulin Mass of left thigh Pain, lower/upper extremity Urinary, incontinence, stress female Positional lightheadedness Wheezing Amputation of left great toe Vitamin B12 deficiency Pain in left lower leg Pain in left foot Occlusion of stent of peripheral artery Personal history of nicotine dependence Chronic low back pain History of CVA (cerebrovascular accident) (~10/2020) History of kidney stones Tubular adenoma of colon COVID-19 vaccine series declined Colitis without complication Ureteral stone with hydronephrosis Pain of plantar aspect of heel Myasthenia gravis Pernicious anemia Myasthenia gravis Urge urinary incontinence Microalbuminuria Vitamin D deficiency Hypercalcemia Hypothyroidism Multinodular thyroid HTN (hypertension) Kidney calculi Surgical History History of surgery History of amputation of toe Hx of blood clots Status post biopsy of thyroid gland (~2021) History of colonoscopy History of esophagogastroduodenoscopy (EGD) History of bilateral cataract extraction (~2019) History of parathyroidectomy History of lithotripsy (~2013) History of hernia repair History of hysterectomy (~1984) Family History Father Lung cancer Mother Asthma Diabetes HTN (hypertension) Heart attack Sister FH: mental illness Leukemia Mental health disorder Social History Household Members: None Housing: Apartment Alcohol intake: current Alcohol intake frequency: does not drink Patient Tobacco Use Status: Former Tobacco user Tobacco use type: Cigarette Years Smoked: 45 +/- e-Cigarette/Vaping Use: Never Used Advance Directives Date on File: 03/03/22 service: No Current occupational status: disabled Cognitive needs: No Hearing needs: No Vision needs: No Assessment & Plan Assessment & Plan (1) Diabetes mellitus, with long-term current use of insulin: Code(s): E11.9 - Type 2 diabetes mellitus without complications; 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 Plan: Wt: 66 Kg ( 07/23/23 ), 64kg (08/2023) Est kcal needs as per MSJ: 1600 (40% carb, 30% protein/fat) Est fluid needs as per 25 ml/d: 1700 Est prot per day as per 1 g/kg bw: 66 Recommend fiber intake : 8-10 g per day and gradually increase to 25-28 g per day for women and 35-38 g for men or as tolerated Recommend sodium intake per day : less than 2000 mg Educated patient on: ( R = reviewed V = verbalizes understanding N/R = needs review N/A = not applicable Food sources of carbohydrate, adequate serving sizes and its role in various health conditions: R Differences between complex carbohydrates a simple carbohydrates, role of fiber in diet: R Lean protein sources of foods: R Differences between types of fats and role in diet (mono on saturated fat fatty acids, saturated fatty acids, trans fats): R Food sources of sodium in salt and healthy modifications for heart health in kidney health: R Vitamins and minerals: R Healthy plate method concept: R, R Physical activity: Benefits a precaution: N/R Hypoglycemia protocol (rule of 15): R V Dietary prevention of Hyperglycemia: R V Patient Instructions: Reduce on fat in diet ( processed meats, butters, additional oils, fried foods) Be mindful of salt in diet, seasonings, gravies, sauces, in cheese, processed foods Aim at reducing sodium to 600 mg or less at meals Keep hydrated by having wate rwith meals. Coding Level of Care Code Nutr Indiv Subseq (86073) Diagnoses Diabetes mellitus, with long-term current use of insulin E11.9; Z79.4 Time Spent (min) 30
== END 2023-08-27 13:25 | disposition home or self-care (01) ==
PROVIDERS: PCP Internal Medicine; Visit Provider Dietitian, Registered
DX: E11.9 Type 2 diabetes mellitus without complications (principal); Z79.4 Long term (current) use of insulin

== ENCOUNTER → 2023-08-27 12:21 | Outpatient (BNVA) | payer OTHER, SELFPAY | PROVIDERS: PCP Internal Medicine; Visit Provider Dietitian, Registered | DX: E11.9 Type 2 diabetes mellitus without complications (principal); Z79.4 Long term (current) use of insulin; Z71.3 Dietary counseling and surveillance | CPT/HCPCS: 97803 ==

== ENCOUNTER 2023-08-31 16:04 | Emergency (ER) | payer OTHER, SELFPAY ==
--- NOTE | ~2023-08-31 | CT_ITS ---
EXAMINATION: CT ANGIOGRAPHY LEGS WITH RUNOFF CLINICAL INFORMATION: Right lower extremity pain and swelling. History of vascular stents. COMPARISON: Right lower extremity ultrasound exams from 08/31/2023. CT abdomen and pelvis from 08/25/2021. TECHNIQUE: Multidetector CT imaging examination of the abdomen and pelvis is performed in the arterial phase of intravenous administration of 100 mL Omnipaque 350 and the examination includes runoff evaluation to the ankles and feet. The source images and multiplanar reformatted images are reviewed. Note that no image postprocessing was performed on any independent workstations. There are no three-dimensional images. This CT examination was performed using dose optimization techniques as appropriate, variously including the following: *Automated exposure control *Adjustment of mA and/or kV according to patient size (this includes techniques or standardized protocols for targeted exams where dose is matched to indication/reason for exam; i.e. extremities or head) *Use of iterative reconstruction technique DLP: 368 mGy-cm FINDINGS: LUNG BASES: No pulmonary consolidation or pleural effusion. HEPATOBILIARY: Liver has normal size, shape, and attenuation. Status post cholecystectomy. No dilated bile ducts. PANCREAS: No edema, pancreatic ductal dilatation or mass. SPLEEN: Normal. ADRENAL GLANDS: Normal. KIDNEYS AND URETERS: Kidneys are normal in size and enhance symmetrically. There is either a vascular calcification or small 3 mm stone of the lower pole of the right kidney. No hydronephrosis. The ureters are unremarkable. 1.2 cm simple cortical cyst of the anterior upper pole of the left kidney. No renal imaging follow-up is recommended for simple cysts. BLADDER: Normal. BOWEL AND PERITONEUM: No dilated bowel loops. No focal bowel wall thickening, mesenteric fat stranding or free fluid. The appendix is normal. ABDOMINAL WALL: Unremarkable. VASCULATURE: Moderate atherosclerotic calcification of abdominal aorta and iliac arteries without aneurysm or dissection. The celiac artery and its branches are widely patent. Superior and inferior mesenteric arteries are widely patent. No significant stenosis of renal arteries. RIGHT: Atherosclerosis of common, external and internal iliac arteries. Moderate irregular stenosis of the internal iliac and mild stenosis of the external iliac arteries. Common femoral artery is widely patent as is the profunda femoris. There is atherosclerotic disease of the superficial femoral artery which becomes occluded in the proximal thigh. The occlusion begins 2.5 cm proximal to the site of SFA stent placement. The proximal SFA stent is 3.8 cm in length and there is a 3 cm gap before identification of several overlapping stents of the mid to distal SFA and popliteal artery. The stented vessels are completely occluded. There is trace amount of fluid and edema around the stented SFA in the mid thigh, but no focal organized measurable collection. There is no rim-enhancing focus in the soft tissues. No soft tissue gas. However, if the patient has fever and leukocytosis, then infection of the SFA stent may be considered. There is minimal flow seen within the diseased popliteal artery due to reconstitution via collaterals derived from the profunda femoris. There is severe stenosis of the tibioperoneal trunk. There is multifocal atherosclerotic plaque of the anterior tibial, posterior tibial and peroneal arteries. The small, atherosclerotic lower leg vessels are suboptimally visualized/evaluated. There appears to be mild flow within the lumen of the peroneal and anterior tibial arteries and no significant flow is detected in the posterior tibial of the mid to-distal leg. There is no visible opacification of the dorsalis pedis artery. LEFT: There is atherosclerosis of the common iliac artery without significant stenosis. Atherosclerotic plaque causes irregular moderate to high-grade stenosis of the left internal iliac artery. No significant stenosis of the external iliac artery. There is focal approximately 50-75% stenosis of the most proximal segment of the SFA just above the level of stent placement. There are several overlapping stents of the SFA. The femoral artery exhibits intraluminal opacification throughout its course. No significant stenosis of the stented SFA. There is atherosclerotic disease of the popliteal artery. There is focal, at least 75% stenosis of the proximal popliteal artery and further distally, there is irregular moderate to high-grade popliteal stenosis. The popliteal and tibioperoneal trunk remain patent. There is opacification of the proximal anterior tibial, posterior tibial and peroneal arteries. There is scattered atherosclerotic plaque within these small caliber vessels which are not optimally evaluated. Calcified plaque cause multifocal stenosis of the anterior tibial artery and the peroneal artery appears to be the main vessel providing flow into the lower extremity. The distal posterior tibial artery is attenuated and not well seen. There is contrast opacification of the dorsalis pedis artery. LYMPH NODES: No pathologic sized lymph nodes in the abdomen or pelvis. No inguinal lymphadenopathy. PELVIC VISCERA: Status post hysterectomy. 2.2 x 2.8 cm structure of the left lower pelvis appears to represent a mildly enlarged ovary and is unchanged in size compared to 11/26/2020. However, based on review of prior contrast-enhanced imaging exams, differential diagnosis would include a prominent venous varix involving the left gonadal vein. There are no new observations within the pelvis. No pelvic free fluid. MUSCULOSKELETAL: No acute or suspicious osseous abnormality. Multilevel disc degenerative change of the visualized lower thoracic and lower lumbar spine. CT/CT angio abd aorta runoff IMPRESSION: * There is atherosclerotic peripheral vascular disease. Findings include a long segment occlusion of the SFA and popliteal artery of the right thigh. Also, there appears to be a trace amount of fluid and edema around the femoral vessels in the mid thigh without any measurable rim-enhancing collection. Depending upon clinical context, this could represent noninfectious or infectious inflammation involving the vessels or soft tissues immediately around the vessels. There is reconstitution of flow in the severely diseased right popliteal artery and tibioperoneal trunk, and there is multifocal stenosis of the suboptimally visualized right lower leg vessels. * On the left, findings include a focal 50-75% stenosis of the most proximal SFA. The stented SFA of the proximal, mid and distal left thigh is widely patent. Although there is stenosis of the left popliteal artery, the popliteal remains patent and there is visualization of flow within the tibioperoneal trunk. The anterior tibial and peroneal arteries remain patent, whereas the distal posterior tibial artery is not well seen.
--- NOTE | ~2023-08-31 | US_ITS ---
EXAMINATION: US VENOUS ULTRASOUND WITH DOPPLER LOWER EXTREMITY, RIGHT CLINICAL INFORMATION: Right lower extremity swelling. COMPARISON: None available. TECHNIQUE: Ultrasound of the deep veins is performed from the hip to the calf with compression sonography and color and pulse Doppler assessment. Spectral analysis with color-flow imaging is performed. FINDINGS: The common femoral vein is compressible and exhibits a normal phasic waveform; this suggests that the iliac veins are widely patent above. Within the proximal thigh, the visualized profunda femoris vein is normal. The examined greater saphenous vein and saphenofemoral junction are normal. Superficial femoral vein is patent in the proximal and distal thigh. The fibre technologist reports inability to visualize the femoral vein in the mid thigh. There is a stent of the femoral artery in this region. There is heterogeneous appearance of the tissues in the mid thigh in the expected region of the femoral vessels but there is no discrete measurable soft tissue lesion. Popliteal vein is normal to the level of the trifurcation. On compression hardin scale and color Doppler images, the visualized posterior tibial and peroneal veins of the calf are patent. No evidence of Anderson's cyst. US/US venous duplex LE RT IMPRESSION: No evidence of deep vein thrombosis in the visualized vessels. However, the femoral vein is not adequately visualized by the technologist in the mid thigh. Instead, there is heterogeneous appearance of tissues in this area. It is uncertain whether this represents a localized region of edema of the deep perivascular tissues or an ill-defined hematoma. Due to lack of adequate visualization of vessels, this exam does not exclude DVT of the femoral vein in the mid thigh. If clinically warranted, CT imaging of the thighs performed in the venous phase after IV contrast may be helpful.
--- NOTE | ~2023-08-31 | US_ITS ---
EXAMINATION: US ARTERIAL DUPLEX LOWER EXTREMITY RIGHT CLINICAL INFORMATION: Right lower extremity pain and swelling. COMPARISON: CT abdomen and pelvis from 10/24/2021. TECHNIQUE: Grayscale and duplex Doppler imaging with spectral waveform analysis of right lower extremity arteries is performed. FINDINGS: There is atherosclerotic plaque along the wall of the common femoral artery which is widely patent, has biphasic waveform, and peak systolic velocity of 70 cm/s. Within the proximal thigh, the visualized profunda femoris femoris artery is widely patent has a peak systolic velocity of 104 cm/s. Within the proximal thigh, the SFA is nearly completely occluded and then further distally, the vessel is completely occluded proximal to the stented segment. Also, no flow is detected within the stented SFA of the mid and distal thigh. There is heterogeneous appearance of intermediate to low echotexture along the stented SFA in the mid thigh, possibly representing small amount of perivascular hematoma. There is atherosclerotic plaque along the wall of the popliteal artery without identification of any intraluminal flow. A brief evaluation of the calf is performed and there is no visible flow within the posterior tibial artery of the calf. US/US arterial duplex LE RT IMPRESSION: * There is atherosclerotic peripheral vascular disease. * The stented right SFA is occluded. Also, no flow is seen within the lumen of the diseased popliteal artery, nor within the posterior tibial artery. * There is heterogeneous appearance of intermediate to low echotexture along the stented SFA in the mid thigh, possibly representing small amount of perivascular hematoma. Note that the stent of the SFA interferes with evaluation of the adjacent femoral vein.
[2023-08-31 16:23] VITALS: BP 160/82; PULSE 108; O2SAT 99
[2023-08-31 16:36] VITALS: BP 179/79; PULSE 93; RESP 16; TEMP 36.9; O2SAT 96; BMI 28.3
--- NOTE | 2023-08-31 16:48 | ED.GENADULT ---
HPI - General Adult General Chief complaint: Extremity Injury, Lower Stated complaint: 9/10 R THIGH & BACK PAIN X 4DAYS,HX BLOOD CLOTS Time Seen by Provider: 08/31/23 16:26 Source: patient and EMS Mode of arrival: EMS Limitations: no limitations History of Present Illness HPI narrative: 68 year old female hx of myesthenia gravis, htn, hld, dvt on plavix ( hx of multiple clot retrieval procedures) presenting w/ RLE pain and swelling X 3 days. Patient reports that the majority of pain is to right upper thigh w/ radiation to RLE / foot. Reports pain is 9/10. No trauma or falls. Hasnt been walking around much due to pain. Pain is worse w/ walking and worse at night. Better at rest. DVTs in past have felt similar. No cp, sob, nausea, vomiting, abd pain, light headed, changes in bowel habits, vision changes, weakness. Patient was on eliquis stopped it due to bleeding now on plavix but not taking it as rx. Related Data Home Medications Medication Instructions Recorded Confirmed mycophenolate mofetil 500 mg tablet 1,000 mg PO TID@0800,1300,1900 02/28/21 02/09/23 pyridostigmine bromide 180 mg 180 mg PO 0800,1300,1900,199910/24/21 02/09/23 tablet,extended release hydrochlorothiazide 25 mg tablet 25 mg PO DAILY@199910/25/21 02/09/23 clopidogrel 75 mg tablet 75 mg PO DAILY 02/09/23 02/09/23 dulaglutide 1.5 mg/0.5 mL mg subcut 06/25/23 subcutaneous pen injector ([facility]) Previous Rx's Medication Instructions Recorded blood sugar diagnostic (FreeStyle #100 ea 09/09/21 Lite Strips) blood-glucose meter (FreeStyle #1 ea 09/09/21 Lite Meter kit) lancets 28 gauge (FreeStyle #100 ea 09/09/21 Lancets) blood-glucose meter (FreeStyle #1 ea 04/21/22 Lite Meter kit) rosuvastatin 40 mg tablet 40 mg PO DAILY 90 days #90 tabs 02/11/23 qeitij-nkpjztwn-hbiqzli 1 cap PO BID 30 days #60 caps 03/24/23 24,000-76,000-120,000 unit capsule,delayed rel (Creon) simethicone 180 mg capsule 180 mg PO QID 30 days #120 caps 03/24/23 ramipril 10 mg capsule 10 mg PO DAILY #30 caps 04/24/23 metoprolol succinate 25 mg 25 mg PO DAILY #90 tabs 05/11/23 tablet,extended release 24 hr incontinence pad, liner, disp #120 ea 05/27/23 nut.tx.gluc.intol,lac-free,soy 1 ea PO BID #60 ea 05/27/23 (Glucerna oral liquid) flash glucose scanning reader #1 ea 06/25/23 (FreeStyle Oren 2 [place]) flash glucose sensor (FreeStyle #2 ea 06/25/23 Oren 2 Sensor kit) insulin glargine 100 unit/mL (3 12 unit (0.12 mL) subcut BEDTIME 06/25/23 mL) subcutaneous pen (Lantus 30 days #3.6 mL Solostar U-100 Insulin) metformin 1,000 mg tablet 1,000 mg PO BID #60 tabs 06/25/23 oxybutynin chloride 15 mg 15 mg PO DAILY #90 tabs 07/10/23 tablet,extended release 24 hr levothyroxine 112 mcg tablet 112 mcg PO DAILY #90 tabs 07/21/23 pen needle, diabetic 32 gauge x #50 ea 07/22/23 (BD Ultra-Fine Marilee Pen Needle) Allergies Allergy/AdvReac Type Severity Reaction Status Date / Time Penicillins [PCN] Allergy Unknown RASH Verified 08/19/23 21:22 gabapentin AdvReac Unknown Dizziness Verified 08/19/23 21:22 Review of Systems Review of Systems: Yes all other systems are reviewed and are negative [facility] Past Medical History Attestation statement: The following information was validated with the patient. Source: old records reviewed and nursing notes reviewed Medical History Diabetes mellitus, with long-term current use of insulin Mass of left thigh Pain, lower/upper extremity Urinary, incontinence, stress female Positional lightheadedness Wheezing Amputation of left great toe Vitamin B12 deficiency Pain in left lower leg Pain in left foot Occlusion of stent of peripheral artery Personal history of nicotine dependence Chronic low back pain History of CVA (cerebrovascular accident) (~10/2020) History of kidney stones Tubular adenoma of colon COVID-19 vaccine series declined Colitis without complication Ureteral stone with hydronephrosis Pain of plantar aspect of heel Myasthenia gravis Pernicious anemia Myasthenia gravis Urge urinary incontinence Microalbuminuria Vitamin D deficiency Hypercalcemia Hypothyroidism Multinodular thyroid HTN (hypertension) Kidney calculi Surgical History History of surgery History of amputation of toe History of amputation of toe Hx of blood clots Status post biopsy of thyroid gland (~2021) History of colonoscopy History of esophagogastroduodenoscopy (EGD) History of bilateral cataract extraction (~2019) History of parathyroidectomy History of lithotripsy (~2013) History of hernia repair History of hysterectomy (~1984) Family History Family History Father Lung cancer Mother Asthma Diabetes HTN (hypertension) Heart attack Sister FH: mental illness Leukemia Mental health disorder Social History Social History Household Members: None Housing: Apartment Alcohol intake: current Alcohol intake frequency: does not drink Patient Tobacco Use Status: Former Tobacco user Tobacco use type: Cigarette Years Smoked: 45 +/- Smoked in Last 30 Days: Yes e-Cigarette/Vaping Use: Never Used Use of substances other than those prescribed or required for medical reasons: No Advance Directives: Yes Advance Directives on File: Yes Advance Directives Date on File: 03/03/22 service: No Current occupational status: disabled Cognitive needs: No Hearing needs: No Vision needs: No Physical Exam ED Vital Signs: Vital Signs - 24 hr 08/31/23 16:36 08/31/23 18:01 08/31/23 21:28 Temperature 98.5 F 97.9 F 98.2 F Pulse Rate 93 87 88 Respiratory Rate 16 16 20 Blood Pressure 179/79 H 163/78 H 160/79 H Pulse Oximetry 96 98 96 Oxygen Delivery Method Room Air Room Air Room Air BMI result Body Mass Index 28.3 vss Appearance: Alert.? Oriented X3.? No acute distress.? Head: Normocephalic, atraumatic, no step-offs or deformities Eyes: Pupils equal, round and reactive to light.? CVS: Normal heart rate and rhythm.? Pulses normal.? Respiratory: No respiratory distress.? Breath sounds normal.? Abdomen: Soft and nontender.? Skin: Skin warm and dry.? Normal skin color.? Normal skin turgor.? Extremities: No lower extremity edema.? No calf ttp. 5/5 strength to bilateral upper and lower extremities + ttp to right upper thigh medial > lateral. 2+ dp, at, pt pulses to b/l LE. capillary refil normal to b/l LE. Back: No midline tenderness, no C-spine tenderness, full range of motion, no CVA tenderness bilaterally Neuro: Oriented X 3.? No motor deficit.? No sensory deficit. CN 2-12 intact Course Reevaluation(s) Reevaluation #1: sign out to aida CONNOR Reevaluation #2: CT angio shows right SFA and proximal artery occlusion with surrounding fluid collection and edema or femoral vessels which may be infectious. Arterial ultrasound confirmed SFA occlusion and popiteal artery. Ultrasound can not rule out DVT due to femoral vessel edema and fluid collection. Case was discussed with Dr. Capone her vascular surgeon who states patient should be transferred to [facility]. Patient informed me that she had blood clot retrieval procedure and stent placements at [facility] this past July. Case was discussed with Dr. Ta of [facility] vascular surgery who accepted the case. Patient will be a direct admit. Time: 23:31 Reevaluation #3: [place] [id number] CT Scan Report Signed Patient: Magy Fitzgerald I MR#: [id number] : 1955 Acct:[id number] Age/Sex: 68 / F ADM Date: 08/31/23 Loc: .ED Attending Dr: Ordering Physician: Selene Ortega Date of Service: 08/31/23 Procedure(s): CT angio abd aorta runoff Accession Number(s): [id number] cc: Selene Ortega; Bernadette De Souza MD~ EXAMINATION: CT ANGIOGRAPHY LEGS WITH RUNOFF CLINICAL INFORMATION: Right lower extremity pain and swelling. History of vascular stents. COMPARISON: Right lower extremity ultrasound exams from 08/31/2023. CT abdomen and pelvis from 08/25/2021. TECHNIQUE: Multidetector CT imaging examination of the abdomen and pelvis is performed in the arterial phase of intravenous administration of 100 mL Omnipaque 350 and the examination includes runoff evaluation to the ankles and feet. The source images and multiplanar reformatted images are reviewed. Note that no image postprocessing was performed on any independent workstations. There are no three-dimensional images. This CT examination was performed using dose optimization techniques as appropriate, variously including the following: *Automated exposure control *Adjustment of mA and/or kV according to patient size (this includes techniques or standardized protocols for targeted exams where dose is matched to indication/reason for exam; i.e. extremities or head) *Use of iterative reconstruction technique DLP: 368 mGy-cm FINDINGS: LUNG BASES: No pulmonary consolidation or pleural effusion. HEPATOBILIARY: Liver has normal size, shape, and attenuation. Status post cholecystectomy. No dilated bile ducts. PANCREAS: No edema, pancreatic ductal dilatation or mass. SPLEEN: Normal. ADRENAL GLANDS: Normal. KIDNEYS AND URETERS: Kidneys are normal in size and enhance symmetrically. There is either a vascular calcification or small 3 mm stone of the lower pole of the right kidney. No hydronephrosis. The ureters are unremarkable. 1.2 cm simple cortical cyst of the anterior upper pole of the left kidney. No renal imaging follow-up is recommended for simple cysts. BLADDER: Normal. BOWEL AND PERITONEUM: No dilated bowel loops. No focal bowel wall thickening, mesenteric fat stranding or free fluid. The appendix is normal. ABDOMINAL WALL: Unremarkable. VASCULATURE: Moderate atherosclerotic calcification of abdominal aorta and iliac arteries without aneurysm or dissection. The celiac artery and its branches are widely patent. Superior and inferior mesenteric arteries are widely patent. No significant stenosis of renal arteries. RIGHT: Atherosclerosis of common, external and internal iliac arteries. Moderate irregular stenosis of the internal iliac and mild stenosis of the external iliac arteries. Common femoral artery is widely patent as is the profunda femoris. There is atherosclerotic disease of the superficial femoral artery which becomes occluded in the proximal thigh. The occlusion begins 2.5 cm proximal to the site of SFA stent placement. The proximal SFA stent is 3.8 cm in length and there is a 3 cm gap before identification of several overlapping stents of the mid to distal SFA and popliteal artery. The stented vessels are completely occluded. There is trace amount of fluid and edema around the stented SFA in the mid thigh, but no focal organized measurable collection. There is no rim-enhancing focus in the soft tissues. No soft tissue gas. However, if the patient has fever and leukocytosis, then infection of the SFA stent may be considered. There is minimal flow seen within the diseased popliteal artery due to reconstitution via collaterals derived from the profunda femoris. There is severe stenosis of the tibioperoneal trunk. There is multifocal atherosclerotic plaque of the anterior tibial, posterior tibial and peroneal arteries. The small, atherosclerotic lower leg vessels are suboptimally visualized/evaluated. There appears to be mild flow within the lumen of the peroneal and anterior tibial arteries and no significant flow is detected in the posterior tibial of the mid to-distal leg. There is no visible opacification of the dorsalis pedis artery. LEFT: There is atherosclerosis of the common iliac artery without significant stenosis. Atherosclerotic plaque causes irregular moderate to high-grade stenosis of the left internal iliac artery. No significant stenosis of the external iliac artery. There is focal approximately 50-75% stenosis of the most proximal segment of the SFA just above the level of stent placement. There are several overlapping stents of the SFA. The femoral artery exhibits intraluminal opacification throughout its course. No significant stenosis of the stented SFA. There is atherosclerotic disease of the popliteal artery. There is focal, at least 75% stenosis of the proximal popliteal artery and further distally, there is irregular moderate to high-grade popliteal stenosis. The popliteal and tibioperoneal trunk remain patent. There is opacification of the proximal anterior tibial, posterior tibial and peroneal arteries. There is scattered atherosclerotic plaque within these small caliber vessels which are not optimally evaluated. Calcified plaque cause multifocal stenosis of the anterior tibial artery and the peroneal artery appears to be the main vessel providing flow into the lower extremity. The distal posterior tibial artery is attenuated and not well seen. There is contrast opacification of the dorsalis pedis artery. LYMPH NODES: No pathologic sized lymph nodes in the abdomen or pelvis. No inguinal lymphadenopathy. PELVIC VISCERA: Status post hysterectomy. 2.2 x 2.8 cm structure of the left lower pelvis appears to represent a mildly enlarged ovary and is unchanged in size compared to 11/26/2020. However, based on review of prior contrast-enhanced imaging exams, differential diagnosis would include a prominent venous varix involving the left gonadal vein. There are no new observations within the pelvis. No pelvic free fluid. MUSCULOSKELETAL: No acute or suspicious osseous abnormality. Multilevel disc degenerative change of the visualized lower thoracic and lower lumbar spine. CT/CT angio abd aorta runoff IMPRESSION: * There is atherosclerotic peripheral vascular disease. Findings include a long segment occlusion of the SFA and popliteal artery of the right thigh. Also, there appears to be a trace amount of fluid and edema around the femoral vessels in the mid thigh without any measurable rim-enhancing collection. Depending upon clinical context, this could represent noninfectious or infectious inflammation involving the vessels or soft tissues immediately around the vessels. There is reconstitution of flow in the severely diseased right popliteal artery and tibioperoneal trunk, and there is multifocal stenosis of the suboptimally visualized right lower leg vessels. * On the left, findings include a focal 50-75% stenosis of the most proximal SFA. The stented SFA of the proximal, mid and distal left thigh is widely patent. Although there is stenosis of the left popliteal artery, the popliteal remains patent and there is visualization of flow within the tibioperoneal trunk. The anterior tibial and peroneal arteries remain patent, whereas the distal posterior tibial artery is not well seen. Dictated By: Chin Elena MD Signed By: <Electronically signed by Chin Elena MD in [place]> 08/31/232125 DD/ 57 TD/TT: Head Resident: [place] [address] Ultrasound Report Signed Patient: Magy Fitzgerald I MR#: [id number] : 1955 Acct:[id number] Age/Sex: 68 / F ADM Date: 08/31/23 Loc: .ED Attending Dr: Ordering Physician: Selene Ortega Date of Service: 08/31/23 Procedure(s): US venous duplex LE RT Accession Number(s): [id number] cc: Selene Ortega; Bernadette De Souza MD~ EXAMINATION: US VENOUS ULTRASOUND WITH DOPPLER LOWER EXTREMITY, RIGHT CLINICAL INFORMATION: Right lower extremity swelling. COMPARISON: None available. TECHNIQUE: Ultrasound of the deep veins is performed from the hip to the calf with compression sonography and color and pulse Doppler assessment. Spectral analysis with color-flow imaging is performed. FINDINGS: The common femoral vein is compressible and exhibits a normal phasic waveform; this suggests that the iliac veins are widely patent above. Within the proximal thigh, the visualized profunda femoris vein is normal. The examined greater saphenous vein and saphenofemoral junction are normal. Superficial femoral vein is patent in the proximal and distal thigh. The fish technologist reports inability to visualize the femoral vein in the mid thigh. There is a stent of the femoral artery in this region. There is heterogeneous appearance of the tissues in the mid thigh in the expected region of the femoral vessels but there is no discrete measurable soft tissue lesion. Popliteal vein is normal to the level of the trifurcation. On compression hardin scale and color Doppler images, the visualized posterior tibial and peroneal veins of the calf are patent. No evidence of Anderson's cyst. US/US venous duplex LE RT IMPRESSION: No evidence of deep vein thrombosis in the visualized vessels. However, the femoral vein is not adequately visualized by the technologist in the mid thigh. Instead, there is heterogeneous appearance of tissues in this area. It is uncertain whether this represents a localized region of edema of the deep perivascular tissues or an ill-defined hematoma. Due to lack of adequate visualization of vessels, this exam does not exclude DVT of the femoral vein in the mid thigh. If clinically warranted, CT imaging of the thighs performed in the venous phase after IV contrast may be helpful. Dictated By: Chin Elena MD Signed By: <Electronically signed by Chin Elena MD in [place]> 08/31/232018 DD/ 32 TD/TT: Head Resident: [address] [address] Ultrasound Report Signed Patient: Magy Fitzgerald I MR#: [id number] : 1955 Acct:[id number] Age/Sex: 68 / F ADM Date: 08/31/23 Loc: .ED Attending Dr: Ordering Physician: Selene Ortega Date of Service: 08/31/23 Procedure(s): US arterial duplex LE RT Accession Number(s): [id number] cc: Selene Ortega; Bernadette De Souza MD~ EXAMINATION: US ARTERIAL DUPLEX LOWER EXTREMITY RIGHT CLINICAL INFORMATION: Right lower extremity pain and swelling. COMPARISON: CT abdomen and pelvis from 10/24/2021. TECHNIQUE: Grayscale and duplex Doppler imaging with spectral waveform analysis of right lower extremity arteries is performed. FINDINGS: There is atherosclerotic plaque along the wall of the common femoral artery which is widely patent, has biphasic waveform, and peak systolic velocity of 70 cm/s. Within the proximal thigh, the visualized profunda femoris femoris artery is widely patent has a peak systolic velocity of 104 cm/s. Within the proximal thigh, the SFA is nearly completely occluded and then further distally, the vessel is completely occluded proximal to the stented segment. Also, no flow is detected within the stented SFA of the mid and distal thigh. There is heterogeneous appearance of intermediate to low echotexture along the stented SFA in the mid thigh, possibly representing small amount of perivascular hematoma. There is atherosclerotic plaque along the wall of the popliteal artery without identification of any intraluminal flow. A brief evaluation of the calf is performed and there is no visible flow within the posterior tibial artery of the calf. US/US arterial duplex LE RT IMPRESSION: * There is atherosclerotic peripheral vascular disease. * The stented right SFA is occluded. Also, no flow is seen within the lumen of the diseased popliteal artery, nor within the posterior tibial artery. * There is heterogeneous appearance of intermediate to low echotexture along the stented SFA in the mid thigh, possibly representing small amount of perivascular hematoma. Note that the stent of the SFA interferes with evaluation of the adjacent femoral vein. Dictated By: Chin Elena MD Signed By: <Electronically signed by Chin Elena MD in [place]> 08/31/232034 DD/ 25 TD/TT: Head Resident: PD Medications Administered Discontinued Medications Generic Name Dose Route Start Last Admin Trade Name Freq PRN Reason Stop Dose Admin Acetaminophen 975 mg 08/31/23 17:13 08/31/23 17:17 Acetaminophen 325 Mg Tablet PO 08/31/23 17:14 975 mg ONCE ONE Administration Iohexol 100 ml 08/31/23 19:30 08/31/23 19:31 Iohexol 350 Mg/Ml 100 Ml Infus..Btl IV 08/31/23 19:31 100 ml ONCE ONE Administration Metoprolol Succinate 25 mg 09/01/23 00:29 09/01/23 00:40 Metoprolol Succinate Er 25 Mg Tab.Er.24h PO 09/01/23 00:30 25 mg ONCE ONE Administration Protocol Morphine Sulfate 4 mg 08/31/23 22:51 08/31/23 23:29 Morphine Sulfate 4 Mg/Ml Cartridge IVPUSH 08/31/23 22:52 4 mg ONCE ONE Administration Protocol Medical Decision Making Medical Decision Making [facility] Narrative: 68 year old female presents w/ RLE pain and swelling X 3 days hx of dvt on plavix Patient was on eliquis stopped it due to bleeding now on plavix but not taking it as rx. PE - + ttp to right upper thigh medial > lateral. 2+ dp, at, pt pulses to b/l LE. capillary refil normal to b/l LE. History and physical exam concerning for DVT likely recurrent. Less likely arterial occlusion due to pain however will rule this out. It will signs of blunt trauma unlikely fracture, dislocation. Plan at this time imaging. Differential Diagnosis Differential Diagnoses: The differential diagnosis associated with the presentation includes History and physical exam concerning for DVT likely recurrent. Less likely arterial occlusion due to pain however will rule this out. It will signs of blunt trauma unlikely fracture, dislocation. Admission/Observation Consideration of admission/observation: Escalation of care including admission/observation considered Unlikely Lab Data [facility] Lab Attestation statement: I reviewed the patient's lab results. 08/31/23 18:00 08/31/23 18:00 Labs: Lab Results 08/31/23 09/01/23 Range/Units 18:00 00:27 WBC 12.0 H (4.8-10.8) X10*3/uL RBC 4.51 (4.20-5.50) X10*6/uL Hgb 12.7 (12.0-16.0) g/dl Hct 37.9 (37.0-47.0) % MCV 84.0 (80.0-98.0) fL MCH 28.2 (27.0-33.0) pg MCHC 33.5 (31.0-35.0) g/dl RDW 14.5 (11.0-16.0) % Plt Count 319 (160-400) X10*3/uL MPV 9.8 (9.4-12.3) fL Immature Gran % (Auto) 0.3 (0.0-0.4) % Neut % (Auto) 69.3 (45-73) % Lymph % (Auto) 19.9 L (20-40) % [place] % (Auto) 9.8 (2-11) % Eos % (Auto) 0.4 (0-4) % Baso % (Auto) 0.3 (0-2) % Lymph # (Auto) 2.4 (1.2-4.9) X10*3/uL [place] # (Auto) 1.2 (0.1-1.2) X10*3/uL Eos # (Auto) 0.1 (0.0-0.4) X10*3/uL Baso # (Auto) 0.0 (0.0-0.2) X10*3/uL Abs Immat Gran (auto) 0.03 (0.00-0.03) X10*3/uL Absolute Neuts (auto) 8.3 (2.0-8.3) x10*3/uL Absolute Nucleated RBC 0.000 (0.0-0.012) X10*3/uL Nucleated RBC % (auto) 0.0 (0.0-0.2) /100WBC PT 13.1 (11.1-13.3) SEC INR 1.1 (0.9-1.1) Sodium 138 (135-145) mmol/L Potassium 3.7 (3.3-5.1) mmol/L Chloride 106 (96-108) mmol/L Carbon Dioxide 25 (22-29) mmol/L Anion Gap 11 L (12-20) BUN 10 (9-16) mg/dL Creatinine 0.67 (0.5-1.4) mg/dL Estim Creat Clear Calc 74.8 Estimated GFR > 60 Random Glucose 143 H (60-115) mg/dL Calcium 9.7 (8.4-10.2) mg/dL Total Bilirubin 0.3 (0.0-1.0) mg/dL AST 14 (5-31) U/L ALT 13 (0-31) U/L Alkaline Phosphatase 70 (39-117) U/L Total Protein 7.0 (6.5-8.0) g/dL Albumin 3.8 (3.5-5.0) g/dL COVID-19 (GAVIN) Negative (Negative) COVID-19 Clin Com See Note Independent Interpretation I performed an independent interpretation of an: Ultrasound Radiology Impression Discussion of test interpretation with radiology: I have reviewed the radiologist's reading. External Record Review External record reviewed: Inpatient record, Office record, Outpatient record, Prior outpatient labs, Prior outpatient radiology, Primary care record and Outside ED record Chronic Conditions Patient?s care impacted by: Hypertension and Other (Peripheral artery disease, DVT, smoker, hypertension, diabetes, myasthenia gravis, multinodular thyroid, hypothyroidism, hypertension) Critical Care Time Critical Care Time Critical Care Time: No Discharge Plan Discharge Clinical Impression: Acute pain of right lower extremity Patient Disposition: [facility] Transfer Details: [facility] Instructions: Leg Pain (ED) Prescriptions: No Action ramipril 10 mg capsule 10 mg PO DAILY Qty: 30 5RF metoprolol succinate 25 mg tablet extended release 24 hr 25 mg PO DAILY Qty: 90 3RF Glucerna Liquid 1 ea PO BID Qty: 60 5RF Rx Instructions: Vanilla flavor (DME) incontinence pad, liner, disp Pad See Rx Instructions .Route Qty: 120 11RF Rx Instructions: As directed-use up to 4 per day oxybutynin chloride 15 mg tablet extended release 24hr 15 mg PO DAILY Qty: 90 1RF levothyroxine 112 mcg tablet 112 mcg PO DAILY Qty: 90 1RF (DME) pen needle, diabetic [BD Ultra-Fine Marilee Pen Needle] 32 gauge x 5/32 needle See Rx Instructions .ROUTE .MEDSUPPLY Qty: 50 10RF Rx Instructions: As directed once daily hydrochlorothiazide 25 mg tablet 25 mg PO DAILY@2000 mycophenolate mofetil 500 mg tablet 1,000 mg PO TID@0800,1300,1900 rosuvastatin 40 mg tablet 40 mg PO DAILY 90 Days Qty: 90 3RF (DME) FreeStyle Lite Strips Strip See Rx Instructions .ROUTE .MEDSUPPLY Qty: 100 11RF Rx Instructions: 4x daily (DME) blood-glucose meter [FreeStyle Lite Meter] Kit See Rx Instructions .Route Qty: 1 0RF Rx Instructions: As directed (DME) lancets [FreeStyle Lancets] 28 gauge misc See Rx Instructions .ROUTE .MEDSUPPLY Qty: 100 11RF Rx Instructions: 4x daily pyridostigmine bromide 180 mg tablet extended release 180 mg PO 0800,1300,1900,2000 (DME) blood-glucose meter [FreeStyle Lite Meter] Kit See Rx Instructions .Route Qty: 1 0RF Rx Instructions: As directed Trulicity 1.5 mg/0.5 mL pen injector subcut insulin glargine [Lantus Solostar U-100 Insulin] 100 unit/mL (3 mL) insulin pen 12 unit subcut BEDTIME 30 Days Qty: 3.6 11RF (DME) FreeStyle Oren 2 Sensor Kit See Rx Instructions .Route Qty: 2 4RF Rx Instructions: As directed change every 14 days (DME) FreeStyle Oren 2 [place] Misc See Rx Instructions .Route Qty: 1 0RF Rx Instructions: As directed metformin 1,000 mg tablet 1,000 mg PO BID Qty: 60 5RF Creon 24,000-76,000 -120,000 unit capsule,delayed release(DR/EC) 1 cap PO BID 30 Days Qty: 60 6RF Rx Instructions: administer with meals and/or snacks simethicone 180 mg capsule 180 mg PO QID 30 Days Qty: 120 6RF Rx Instructions: after meals clopidogrel 75 mg tablet 75 mg PO DAILY Interventions: Acute Care Transfer Worksheet (ED) Last Done: 09/01/23 02:17 Discharge Date/Time: 09/01/23 02:18
[2023-08-31] MEDS: Acetaminophen 325 MG TABLET 975 MG PO (17:17)
[2023-08-31 18:01] VITALS: BP 163/78; PULSE 87; RESP 16; TEMP 36.6; O2SAT 98
[2023-08-31 18:05] LABS: MANUAL DIFF FLAG NO
[2023-08-31 18:06] LABS: Basophils Percent Auto 0.3 % (0-2); Eosinophils Absolute Auto 0.1 X10*3/uL (0.0-0.4); Eosinophils Percent Auto 0.4 % (0-4); Hematocrit 37.9 % (37.0-47.0); Hemoglobin 12.7 g/dl (12.0-16.0); Imm Gran Abs Auto 0.03 X10*3/uL (0.00-0.03); Imm Gran Pct Auto 0.3 % (0.0-0.4); Lymphocytes Absolute Auto 2.4 X10*3/uL (1.2-4.9); Lymphocytes Percent Auto 19.9 % (20-40); Mean Corpuscular HGB Conc 33.5 g/dl (31.0-35.0); Mean Corpuscular Hemoglobin 28.2 pg (27.0-33.0); Mean Platelet Volume 9.8 fL (9.4-12.3); Monocytes Absolute Auto 1.2 X10*3/uL (0.1-1.2); Monocytes Percent Auto 9.8 % (2-11); Neutrophils Absolute Auto 8.3 x10*3/uL (2.0-8.3); Neutrophils Percent Auto 69.3 % (45-73); Platelet Count 319 X10*3/uL (160-400); Red Blood Count 4.51 X10*6/uL (4.20-5.50); Red Cell Distribution Width 14.5 % (11.0-16.0)
[2023-08-31 18:17] LABS: INTERNATIONAL NORM RATIO 1.1 (0.9-1.1); Prothrombin Time 13.1 SEC (11.1-13.3)
[2023-08-31 18:22] LABS: Alanine Aminotransferase 13 U/L (0-31); Albumin Level 3.8 g/dL (3.5-5.0); Alkaline Phosphatase 70 U/L (39-117); Anion Gap 11 (12-20); Aspartate Amino Transferase 14 U/L (5-31); Bilirubin Total 0.3 mg/dL (0.0-1.0); Blood Urea Nitrogen 10 mg/dL (9-16); Calcium 9.7 mg/dL (8.4-10.2); Carbon Dioxide 25 mmol/L (22-29); Chloride 106 mmol/L (96-108); Creatinine Clr Calc Pharmacy 74.8; Estimated Glomerular Filt Rate > 60; Glucose Random 143 mg/dL (60-115); Potassium 3.7 mmol/L (3.3-5.1); Sodium 138 mmol/L (135-145)
[2023-08-31] MEDS: iohexoL 350 MG/ML 100 ML INFUS..BTL IV (19:31)
[2023-08-31 21:28] VITALS: BP 160/79; PULSE 88; RESP 20; TEMP 36.8; O2SAT 96
[2023-08-31] MEDS: Morphine Sulfate 4 MG/ML CARTRIDGE IVPUSH (23:29)
[2023-09-01 00:19] VITALS: BP 191/91; PULSE 105; RESP 20; TEMP 36.7; O2SAT 97
[2023-09-01] MEDS: Metoprolol Succinate ER 25 MG TAB.ER.24H PO (00:40)
[2023-09-01 01:05] LABS: COVID-19 Test Negative (Negative); IDNOW Serial# 08D9AD1C
[2023-09-01 01:40] VITALS: BP 170/87; PULSE 91; RESP 18; TEMP 36.8; O2SAT 97
--- NOTE | 2023-09-01 01:48 | MHC.EDTECH ---
This tech took over care of patient at 0100AM,patient was changed into hospital attire,vitals taken and belongings list completed for transfer.
[2023-09-01 02:17] VITALS: BP 170/87; PULSE 91; RESP 18; TEMP 36.8; O2SAT 97
== END 2023-09-01 02:18 | disposition short-term general hospital (02) ==
PROVIDERS: Physician Assistant; Emergency Provider Internal Medicine; PCP Internal Medicine
DX: M79.651 Pain in right thigh (principal); T82.856A Stenosis of peripheral vascular stent, initial encounter; Y83.8 Other surgical procedures as the cause of abnormal reaction of the patient, or of later complication, without mention of misadventure at the time of the procedure; Y92.9 Unspecified place or not applicable; I10 Essential (primary) hypertension; E11.9 Type 2 diabetes mellitus without complications; G70.00 Myasthenia gravis without (acute) exacerbation; Z86.718 Personal history of other venous thrombosis and embolism; Z86.73 Personal history of transient ischemic attack (TIA), and cerebral infarction without residual deficits; Z79.02 Long term (current) use of antithrombotics/antiplatelets; Z79.4 Long term (current) use of insulin; Z11.52 Encounter for screening for COVID-19
CPT/HCPCS: 36415; 75635; 80053; 85025; 85610; 87635; 93926; 93971; 96374; 99285; J2270; Q9967

== ENCOUNTER 2023-10-12 12:24 | Outpatient (AMB) | payer OTHER, SELFPAY ==
[2023-10-12 12:44] VITALS: BP 140/76; PULSE 95; BMI 25.0
--- NOTE | 2023-10-12 12:44 | MHC.OFFVIS ---
Vital Signs 10/12/23 12:44 Height 5 ft 2 in Weight 136 lb 10.986 oz BMI 25.0 BP 140/76 H Blood Pressure Location Lt brachial Position Sitting Pulse 95 Pulse Source Pulse Oximeter Intake Visit Reasons: 6 mnth f/up Intake Note: pt state that she its doing fine. Claims Adjuster Crop Required: No Accompanied by: Self / Same As Patient Allergies Penicillins [PCN] Allergy (Unknown, Verified 08/19/23 21:22) RASH gabapentin Adverse Reaction (Unknown, Verified 08/19/23 21:22) Dizziness Medication List - Last Reconciled 10/12/23 by Duke Izaguirre MD blood sugar diagnostic (FreeStyle Lite Strips) 4x daily blood-glucose meter (FreeStyle Lite Meter kit) As directed blood-glucose meter (FreeStyle Lite Meter kit) As directed clopidogrel 75 mg PO DAILY dulaglutide (Trulicity) mg subcut flash glucose scanning reader (FreeStyle Oren 2 [place]) As directed flash glucose sensor (FreeStyle Oren 2 Sensor kit) As directed change every 14 days incontinence pad, liner, disp As directed-use up to 4 per day insulin glargine (Lantus Solostar U-100 Insulin) 12 units (0.12 mL) subcut BEDTIME 30 days lancets (FreeStyle Lancets) 4x daily levothyroxine 112 mcg PO DAILY [id number]-ldpcets 24,000-76,000 -120,000 unit (Creon) 1 cap PO BID 30 days metformin 1,000 mg PO BID metoprolol succinate ER 25 mg PO DAILY mycophenolate mofetil 1,000 mg PO TID@0800,1300,1900 oxybutynin chloride ER 15 mg PO DAILY pen needle, diabetic (BD Ultra-Fine [place] Pen Needle) As directed once daily pyridostigmine bromide ER 180 mg PO 0800,1300,1900,2000 ramipril 10 mg PO DAILY rosuvastatin 40 mg PO DAILY 90 days [shower bench without back As directed] simethicone 180 mg PO QID 30 days HPI Comments Details: 68-year-old female with complex past medical issues including hypertension, hyperlipidemia, myasthenia gravis and CVA. She had CVA while she was in [place] in October 2020. She has myasthenia gravis and she is an active smoker but trying to quit. She is stable from myasthenia point of view. Her blood pressure is elevated. she is saying her sugar is also difficult to control. Her last visit she complains about nighttime snoring and daytime sleepiness and she was referred for sleep study which was normal. Today she is here for follow-up. She is complaining of cramping in her abdomen and nausea. She had 3 episodes of bloody stools yesterday. She is saying that she also noticed some blood in her urine. Difficult to say whether this is GI or blood loss but she is having a lot of cramping in her abdomen. This has continued into today. She said she had peptic ulcer disease approximately 10 years ago. 10/12/23: She returns for follow-up. It appears she underwent right femoral to below knee popliteal artery bypass on 09/01/[address] Padilla. She is saying that she has been doing well. She is smoking 1 cigarette per day. She is currently taking Plavix only. It appears she was given Xarelto but this was discontinued. She said she had some bleeding from her nose. Blood pressure is elevated. She is taking ramipril 10 mg daily and metoprolol succinate 25 mg daily. [facility] Medical History Diabetes mellitus, with long-term current use of insulin Mass of left thigh Pain, lower/upper extremity Urinary, incontinence, stress female Positional lightheadedness Wheezing Amputation of left great toe Vitamin B12 deficiency Pain in left lower leg Pain in left foot Occlusion of stent of peripheral artery Personal history of nicotine dependence Chronic low back pain History of CVA (cerebrovascular accident) (~10/2020) History of kidney stones Tubular adenoma of colon COVID-19 vaccine series declined Colitis without complication Ureteral stone with hydronephrosis Pain of plantar aspect of heel Myasthenia gravis Pernicious anemia Myasthenia gravis Urge urinary incontinence Microalbuminuria Vitamin D deficiency Hypercalcemia Hypothyroidism Multinodular thyroid HTN (hypertension) Kidney calculi Surgical History History of surgery History of amputation of toe History of amputation of toe Hx of blood clots Status post biopsy of thyroid gland (~2021) History of colonoscopy History of esophagogastroduodenoscopy (EGD) History of bilateral cataract extraction (~2019) History of parathyroidectomy History of lithotripsy (~2013) History of hernia repair History of hysterectomy (~1984) Family History Father Lung cancer Mother Asthma Diabetes HTN (hypertension) Heart attack Sister FH: mental illness Leukemia Mental health disorder Social History Household Members: None Housing: Apartment Alcohol intake: current Alcohol intake frequency: does not drink Patient Tobacco Use Status: Former Tobacco user Tobacco use type: Cigarette Years Smoked: 45 +/- e-Cigarette/Vaping Use: Never Used Advance Directives Date on File: 03/03/22 service: No Current occupational status: disabled Cognitive needs: No Hearing needs: No Vision needs: No Review of Systems Const Denies chills, Denies fatigue, Denies fever(s), Denies frequent falls, Denies weakness, Denies weight gain and Denies weight loss ENT Denies dizziness Card Denies chest pain, Denies leg edema, Denies lightheadedness, Denies palpitations, Denies dyspnea and Denies dyspnea on exertion Resp Denies cough, Denies dyspnea and Denies dyspnea on exertion GI Denies hematochezia Musc Denies abnormal gait, Denies muscle weakness, Denies numbness, Denies radiating pain into limb and Denies tingling Neuro Denies abnormal gait, Denies dizziness, Denies frequent falls, Denies numbness, Denies tingling and Denies weakness Endo Denies fatigue and Denies palpitations Physical Exam Vital Signs: Last Vital Signs Pulse 95 10/12/23 12:44 BP 140/76 H 10/12/23 12:44 BMI result Body Mass Index 25.0 GENERAL APPEARANCE: in no acute distress, well developed, well nourished. HEART: no murmurs, regular rate and rhythm, S1, S2 normal. LUNGS: clear to auscultation bilaterally. ABDOMEN: normal, bowel sounds present, soft, nontender, nondistended. EXTREMITIES: no clubbing, cyanosis, or edema. PERIPHERAL PULSES: equal. NEUROLOGIC: AAO x 3. PSYCH: mood/affect full range. Assessment & Plan Assessment & Plan (1) PAD (peripheral artery disease): Comment: 12/04/2021 - left SFA atherectomy and stent 01/01/2022 - left leg diagnostic angiogram Code(s): I73.9 - Peripheral vascular disease, unspecified Category: Medical (2) HTN (hypertension): Code(s): I10 - Essential (primary) hypertension Category: Medical Qualifiers: Hypertension type: unspecified Qualified Code(s): I10 - Essential (primary) hypertension Plan Very pleasant 68 year female who is here for follow-up. She has background history of peripheral vessel disease. It appears she had recent fem-pop bypass on the right side in August 2023. She is smoking up to 1 cigarettes per day. I have explained to her that she needs to stop smoking given her significant history of peripheral vascular disease with multiple surgeries in the past. She is hypertensive. Increasing the ramipril to 20 mg daily. She will continue Plavix 75 mg daily. She is known to vascular surgery at [facility]. Thank you for allowing me to participate in the care of your patient. Please feel free to contact me if you have any questions. Medications: Changed From ramipril 10 mg PO DAILY 30 caps 5RF To ramipril 20 mg (2 x 10 mg) PO DAILY 180 caps 5RF Coding Level of Care Code Est Pt Level 4 (28950) Diagnoses PAD (peripheral artery disease) I73.9 Hypertension, unspecified type I10 Hypertension type: unspecified
== END 2023-10-12 13:19 | disposition home or self-care (01) ==
PROVIDERS: PCP Internal Medicine; Visit Provider Internal Medicine Cardiovascular Disease
DX: I73.9 Peripheral vascular disease, unspecified (principal); I10 Essential (primary) hypertension
CPT/HCPCS: 99214

== ENCOUNTER → 2023-10-12 12:24 | Outpatient (BNVA) | payer OTHER, SELFPAY | PROVIDERS: PCP Internal Medicine; Visit Provider Internal Medicine Cardiovascular Disease | DX: I73.9 Peripheral vascular disease, unspecified (principal); I10 Essential (primary) hypertension; F17.210 Nicotine dependence, cigarettes, uncomplicated; Z79.02 Long term (current) use of antithrombotics/antiplatelets; Z79.899 Other long term (current) drug therapy | CPT/HCPCS: 99212 ==

== ENCOUNTER 2023-10-13 11:32 | Outpatient (AMB) | payer OTHER, SELFPAY ==
[2023-10-13 11:39] VITALS: BMI 25.0
--- NOTE | 2023-10-13 11:39 | A.OFFVIS_ITS ---
Intake VS Expanded 10/13/23 11:39 Height 5 ft 2 in Weight 136 lb 10.986 oz BMI 25.0 Intake Visit Reasons: DM Allergies Penicillins [PCN] Allergy (Unknown, Verified 08/19/23 21:22) RASH gabapentin Adverse Reaction (Unknown, Verified 08/19/23 21:22) Dizziness HPI Nutrition Presentation Details Pt presents for MNT f/u for T2DM Pt did not bring glucometer to this appt. Pt reports including fruit once a day , replacing breads, chips, pastries Reports including yogurt once/day at bedtime snack working on following healthy plate method at dinner Most Recent Diabetes Results: Creatinine 0.67 mg/dL (0.5-1.4) 08/31/23 Blood Urea Nitrogen 10 mg/dL (9-16) 08/31/23 Sodium 138 mmol/L (135-145) 08/31/23 Potassium 3.7 mmol/L (3.3-5.1) 08/31/23 Chloride 106 mmol/L (96-108) 08/31/23 Carbon Dioxide 25 mmol/L (22-29) 08/31/23 Calcium 9.7 mg/dL (8.4-10.2) 08/31/23 AST 14 U/L (5-31) 08/31/23 ALT 13 U/L (0-31) 08/31/23 Total Protein 7.0 g/dL (6.5-8.0) 08/31/23 Albumin 3.8 g/dL (3.5-5.0) 08/31/23 [facility] Medical History Diabetes mellitus, with long-term current use of insulin Mass of left thigh Pain, lower/upper extremity Urinary, incontinence, stress female Positional lightheadedness Wheezing Amputation of left great toe Vitamin B12 deficiency Pain in left lower leg Pain in left foot Occlusion of stent of peripheral artery Personal history of nicotine dependence Chronic low back pain History of CVA (cerebrovascular accident) (~10/2020) History of kidney stones Tubular adenoma of colon COVID-19 vaccine series declined Colitis without complication Ureteral stone with hydronephrosis Pain of plantar aspect of heel Myasthenia gravis Pernicious anemia Myasthenia gravis Urge urinary incontinence Microalbuminuria Vitamin D deficiency Hypercalcemia Hypothyroidism Multinodular thyroid HTN (hypertension) Kidney calculi Surgical History History of surgery History of amputation of toe History of amputation of toe Hx of blood clots Status post biopsy of thyroid gland (~2021) History of colonoscopy History of esophagogastroduodenoscopy (EGD) History of bilateral cataract extraction (~2019) History of parathyroidectomy History of lithotripsy (~2013) History of hernia repair History of hysterectomy (~1984) Family History Father Lung cancer Mother Asthma Diabetes HTN (hypertension) Heart attack Sister FH: mental illness Leukemia Mental health disorder Social History Household Members: None Housing: Apartment Alcohol intake: current Alcohol intake frequency: does not drink Patient Tobacco Use Status: Former Tobacco user Tobacco use type: Cigarette Years Smoked: 45 +/- e-Cigarette/Vaping Use: Never Used Advance Directives Date on File: 03/03/22 service: No Current occupational status: disabled Cognitive needs: No Hearing needs: No Vision needs: No Assessment & Plan Assessment & Plan (1) Diabetes mellitus, with long-term current use of insulin: Code(s): E11.9 - Type 2 diabetes mellitus without complications; Z79.4 - intermediate manager (current) use of insulin Plan: Wt: 66 Kg ( 07/23/23 ), 64kg (08/2023), 62 kg (09/2023) Est kcal needs as per MSJ: 1600 (40% carb, 30% protein/fat) Est fluid needs as per 25 ml/d: 1700 Est prot per day as per 1 g/kg bw: 66 Recommend fiber intake : 8-10 g per day and gradually increase to 25-28 g per day for women and 35-38 g for men or as tolerated Recommend sodium intake per day : less than 2000 mg Educated patient on: ( R = reviewed V = verbalizes understanding N/R = needs review N/A = not applicable * Food sources of carbohydrate, adequate serving sizes and its role in various health conditions: R * Differences between complex carbohydrates a simple carbohydrates, role of fiber in diet: R * Lean protein sources of foods: R * Differences between types of fats and role in diet (mono on saturated fat fatty acids, saturated fatty acids, trans fats): R * Food sources of sodium in salt and healthy modifications for heart health in kidney health: R * Vitamins and minerals: R * Healthy plate method concept: R, R * Physical activity: Benefits a precaution: R * Hypoglycemia protocol (rule of 15): R V * Dietary prevention of Hyperglycemia: R V Patient Instructions: * Include omega 3 fatty acid sources of foods in your diet (nuts/seeds, fish,cold pressed olive oil) * Continue keeping physically active as able , 150 minutes per week * keep hydrated by having water with meals/snack * Include at least 2 serving of calcium containing foods in your diet (goal 2000 mg/d) Coding Level of Care Code Nutr Indiv Subseq (38248) Diagnoses Diabetes mellitus, with long-term current use of insulin E11.9; Z79.4 Time Spent (min) 20
== END 2023-10-13 12:02 | disposition home or self-care (01) ==
PROVIDERS: PCP Internal Medicine; Visit Provider Dietitian, Registered
DX: E11.9 Type 2 diabetes mellitus without complications (principal); Z79.4 Long term (current) use of insulin

== ENCOUNTER → 2023-10-13 11:32 | Outpatient (BNVA) | payer OTHER, SELFPAY | PROVIDERS: PCP Internal Medicine; Visit Provider Dietitian, Registered | DX: E11.9 Type 2 diabetes mellitus without complications (principal); Z79.4 Long term (current) use of insulin | CPT/HCPCS: 97803 ==

== ENCOUNTER 2023-10-16 12:34 | Outpatient (AMB) | payer OTHER, SELFPAY ==
--- NOTE | 2023-10-16 12:39 | A.OFFPC_ITS ---
Vital Signs 10/16/23 12:41 Height 5 ft 2 in Weight 138 lb BMI 25.2 BP 130/86 Blood Pressure Location Lt brachial Position Sitting Pulse 92 Pulse Source Pulse Oximeter Pulse Oximetry (%) 98 Oxygen Delivery Method Room Air Intake Visit Reasons: Follow up Intake Note: Patient here for med f/u. Allergies Penicillins [PCN] Allergy (Unknown, Verified 10/16/23 12:59) RASH gabapentin Adverse Reaction (Unknown, Verified 10/16/23 12:59) Dizziness Medication List - Last Reconciled 10/16/23 by Bernadette De Souza MD blood sugar diagnostic (FreeStyle Lite Strips) 4x daily blood-glucose meter (FreeStyle Lite Meter kit) As directed blood-glucose meter (FreeStyle Lite Meter kit) As directed clopidogrel 75 mg PO DAILY flash glucose scanning reader (FreeStyle Oren 2 [place]) As directed flash glucose sensor (FreeStyle Oren 2 Sensor kit) As directed change every 14 days incontinence pad, liner, disp As directed-use up to 4 per day insulin glargine (Lantus Solostar U-100 Insulin) 12 units (0.12 mL) subcut BEDTIME 30 days lancets (FreeStyle Lancets) 4x daily levothyroxine 112 mcg PO DAILY ckotiq-ohlqrkws-vhhywbt 24,000-76,000 -120,000 unit (Creon) 1 cap PO BID 30 days metformin 1,000 mg PO BID metoprolol succinate ER 25 mg PO DAILY mycophenolate mofetil 1,000 mg PO TID@0800,1300,1900 oxybutynin chloride ER 15 mg PO DAILY pen needle, diabetic (BD Ultra-Fine Marilee Pen Needle) As directed once daily pyridostigmine bromide ER 180 mg PO 0800,1300,1900,2000 ramipril 20 mg (2 x 10 mg) PO DAILY rosuvastatin 40 mg PO DAILY 90 days [shower bench without back As directed] simethicone 180 mg PO QID 30 days Tobacco use date assessed: 10/16/23 Fall risk assessment: No Falls in past year Last assessed Fall Risk: 10/16/23 Dental Screening Dental Screen Date: 10/16/23 Did you have a dental visit in the last 12 months?: No Did you have a dental problem in the last 6 months where you did not have access to dental care?: No Was dental information given to patient?: Patient has dentist HPI Follow up HPI Details 68 year old lady here today for follow-u p. 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 She has had recurrent kidney stones. She does not take Vitamin D., no history of fractures. She does report a history of Osteoporosis, but this does appear to have resolved as her recent BMD was normal as of 08/27/18.. He has peripheral vascular disease currently followed by vascular surgery at [facility],. History of lacunar stroke in 2020 without residual deficits. She is currently followed by [facility] endocrine [facility] for her diabetes mellitus Presents today for follow-up on her hypertension and vitamin B12 deficiency. She was also noted to have elevated amylase and lipase levels on labs done in May 2023. At present does not have any abdominal pain, no nausea vomiting. Patient also complains of having recurrent episodes of low mood and anxiety attacks. She currently lives by herself in elderly housing, has been having a lot of problems with her neighbors, patient states that she is here by herself in [place], her children [place] They have been telling her to live with them but patient hesitant to go as most of her doctors are here in [place]. She does have a trip scheduled to visit her daughter in [place] later this month. . Does not want to start any medications, but would like to be referred for therapy. [facility] Medical History (Updated 10/18/23 @ 22:26 by Bernadette De Souza MD) Anxiety and depression Diabetes mellitus, with long-term current use of insulin Urinary, incontinence, stress female Wheezing Vitamin B12 deficiency Occlusion of stent of peripheral artery Personal history of nicotine dependence Chronic low back pain History of CVA (cerebrovascular accident) (~10/2020) History of kidney stones Tubular adenoma of colon COVID-19 vaccine series declined Colitis without complication Ureteral stone with hydronephrosis Myasthenia gravis Pernicious anemia Myasthenia gravis Urge urinary incontinence Microalbuminuria Vitamin D deficiency Hypothyroidism Multinodular thyroid HTN (hypertension) Surgical History (Updated 10/18/23 @ 22:00 by Bernadette De Souza MD) History of surgery History of amputation of toe Hx of blood clots Status post biopsy of thyroid gland (~2021) History of colonoscopy History of esophagogastroduodenoscopy (EGD) History of bilateral cataract extraction (~2019) History of parathyroidectomy History of lithotripsy (~2013) History of hernia repair History of hysterectomy (~1984) Family History Father Lung cancer Mother Asthma Diabetes HTN (hypertension) Heart attack Sister FH: mental illness Leukemia Mental health disorder Social History Household Members: None Housing: Apartment Alcohol intake: current Alcohol intake frequency: does not drink Patient Tobacco Use Status: Former Tobacco user Tobacco use type: Cigarette Years Smoked: 45 +/- e-Cigarette/Vaping Use: Never Used Advance Directives Date on File: 03/03/22 service: No Current occupational status: disabled Cognitive needs: No Hearing needs: No Vision needs: No Questionnaire PHQ-9 Over the last 2 weeks, how often have you been bothered by any of the following problems? 1. Little interest or pleasure in doing things: several days 2. Feeling down, depressed, or hopeless: more than half the days 3. Trouble falling or staying asleep, or sleeping too much: several days 4. Feeling tired or having little energy: several days 5. Poor appetite or overeating: several days 6. Feeling bad about yourself - or that you are a failure or have let yourself or your family down: not at all 7. Trouble concentrating on things, such as reading the newspaper or watching television: more than half the days 8. Moving or speaking so slowly that other people could have noticed. Or the opposite - being so fidgety or restless that you have been moving around a lot more than usual: not at all 9. Thoughts that you would be better off or of hurting yourself in some way: not at all Total score: 8 Depression Screening Interpretation: Positive Depression Screening Follow-up: Community Mental Health Worker F/U Depression Screening Done: Yes 39301 - PHQ-9 Billing: Yes Source: Developed by Drs. Cristi LBertha Barrett Kurt Kroenke and colleagues, with an educational jud from [email or web address]. Thrive Questionnaire Date Thrive assessed: 10/16/23 I am a: Patient What is your living situation today?: I have a steady place to live Within the past 12 months, did the food you bought not last and you didn't have the money to get more?: Never true Within the past 12 months, did you worry whether your food would run out before you got money to buy more?: Never true Do you have trouble paying for medicines?: No Do you have trouble getting transportation to medical appointments?: Yes Do you have trouble paying your heating and electricity bill?: No Do you have trouble taking care of your child, family member or friend?: No Do you have trouble with day-to-day activities such as bathing, preparing meals, shopping, managing finances, etc.?: No Are you currently unemployed and looking for a job?: No Are you interested in more education?: No Please select the resources that you would like help with: Transportation THRIVE Score: 1 AUDIT C Alcohol Use Questionnaire (AUDIT-C) 1. How often do you have a drink containing alcohol?: Never Total Score: 0 APARNA-7 AMB Questionnaire APARNA-7 Date APARNA - 7 assessed: 10/16/23 Feeling nervous, anxious, or on edge: 1 = Several days Not being able to stop or control worryin = Several days Worrying too much about different things: 2 = More than half the days Trouble relaxin = Several days Being so restless that it is hard to sit still: 0 = Not at all Becoming easily annoyed or irritable: 0 = Not at all Feeling afraid as if something awful might happen: 1 = Several days Total APARNA-7 score (0-4 normal; 5-9 mild; 10-14 moderate; 15-21 severe): 6 Source: Developed by Bertha Almonte Kurt Kroenke and colleagues, with an educational jud from [email or web address]. APARNA-7 Assessment Billing APARNA-7 Assessment Tool: APARNA-7 Assessment 37170 Review of Systems Const Denies chills, Denies fatigue, Denies fever(s), Denies frequent falls and Denies weakness Eyes Reports no additional complaints ENT Denies dizziness Card Denies chest pain, Denies leg edema, Denies lightheadedness, Denies palpitations, Denies dyspnea and Denies dyspnea on exertion Resp Denies cough, Denies dyspnea and Denies dyspnea on exertion GI Denies hematochezia Reports no additional complaints Musc Denies abnormal gait, Denies muscle weakness, Denies numbness, Denies radiating pain into limb and Denies tingling Neuro Denies abnormal gait, Denies dizziness, Denies frequent falls, Denies numbness, Denies tingling and Denies weakness Psych Reports as per HPI Endo Denies fatigue and Denies palpitations Jesus/Lymph Reports no additional complaints Physical exam (Primary Care) Vital Signs: Last Vital Signs Pulse 92 10/16/23 12:41 BP 130/86 10/16/23 12:41 Pulse Ox 98 10/16/23 12:41 Oxygen Delivery Method Room Air 10/16/23 12:41 BMI result Body Mass Index 25.2 Tobacco/Smoking Status: Tobacco use Status Tobacco use date assessed 10/16/23 10/16/23 12:45 Patient Tobacco Use Status Former Tobacco user 10/16/23 12:41 Tobacco use type Cigarette 10/16/23 12:41 e-Cigarette/Vaping Use Never Used 10/16/23 12:41 PHQ-9: PHQ-9 Score PHQ-9: Total score 8 10/16/23 13:13 Depression Screening Interpretation: Positive Depression Screening Follow-up: Community Mental Health Worker F/U Thrive Assessment: Date of Thrive Assessment Date Thrive assessed 10/16/23 10/16/23 13:12 Const General: no acute distress and alert Orientation/consciousness: patient oriented x3 HENMT Face and sinus: Yes face symmetric Mouth: Normal oral and palatal mucosa present, oropharynx normal and moist mucous membranes Eyes General: appearance normal, both eyes and all related structures Neck Other: Thyroid gland nonpalpable Neck: Yes full ROM, Yes no lymphadenopathy and Yes supple Resp Effort & Inspection: normal respiratory effort and able to speak in complete sentences Cardio Other: S1-S2 present regular rate and rhythm GI Palpation (GI): Soft to palpation, nontender and no guarding Auscultation: normal bowel sounds Neuro General: patient oriented x3, moves all extremities, no focal motor deficits, CN's II-XI intact bilaterally and decrease sensation to monofilament (In both lower extremities) Extrem Other: No pedal edema noted, no gross bone deformity seen, Absent 5th digits in both feet Psych Appearance: grossly normal and well kempt Mental Status: mental status grossly normal Speech and movement: Normal speech and movement present Affect: normal affect Attitude: cooperative Thought process: Normal thought process present Assessment and Plan Assessment & Plan (1) HTN (hypertension): Code(s): I10 - Essential (primary) hypertension Qualifiers: Hypertension type: unspecified Qualified Code(s): I10 - Essential (primary) hypertension Plan: Blood pressure at goal of less than 130/80. Currently on ramipril 20 mg daily and metoprolol succinate ER 25 mg daily Reinforced importance of following a low sodium diet, getting regular exercise, and lowering stress levels. (2) Vitamin D deficiency: Code(s): E55.9 - Vitamin D deficiency, unspecified Plan: Check vitamin-D level (3) Pernicious anemia: Code(s): D51.0 - Vitamin B12 deficiency anemia due to intrinsic factor deficiency Plan: Ordered vitamin B12 level (4) Encounter for screening for lipid disorder: Code(s): Z13.220 - Encounter for screening for lipoid disorders Plan: Fasting lipid panel ordered (5) Increased serum lipase level: Code(s): R74.8 - Abnormal levels of other serum enzymes Plan: Check serum lipids and amylase level (6) Anxiety and depression: Code(s): F41.9 - Anxiety disorder, unspecified; F32.A - Depression, unspecified Plan: Does not want to take any additional meds at present time, referred to our mental health coordinator for assistance in getting in to be scheduled for therapy Orders: Orders Comprehensive [place]. Panel Fast 10/17/23 D51.0 - Vitamin B12 deficiency anemia due to intrinsic factor deficiency, E55.9 - Vitamin D deficiency, unspecified, I10 - Essential (primary) hypertension, R53.83 - Other fatigue, R74.8 - Abnormal levels of other serum enzymes, Z13.220 - Encounter for screening for lipoid disorders Lipase 10/17/23 D51.0 - Vitamin B12 deficiency anemia due to intrinsic factor deficiency, E55.9 - Vitamin D deficiency, unspecified, I10 - Essential (primary) hypertension, R53.83 - Other fatigue, R74.8 - Abnormal levels of other serum enzymes, Z13.220 - Encounter for screening for lipoid disorders Amylase 10/17/23 D51.0 - Vitamin B12 deficiency anemia due to intrinsic factor deficiency, E55.9 - Vitamin D deficiency, unspecified, I10 - Essential (primary) hypertension, R53.83 - Other fatigue, R74.8 - Abnormal levels of other serum enzymes, Z13.220 - Encounter for screening for lipoid disorders Vitamin B12 and Folate 10/17/23 D51.0 - Vitamin B12 deficiency anemia due to intrinsic factor deficiency, E55.9 - Vitamin D deficiency, unspecified, I10 - Essential (primary) hypertension, R53.83 - Other fatigue, R74.8 - Abnormal levels of other serum enzymes, Z13.220 - Encounter for screening for lipoid disorders Lipid Panel 10/17/23 D51.0 - Vitamin B12 deficiency anemia due to intrinsic factor deficiency, E55.9 - Vitamin D deficiency, unspecified, I10 - Essential (primary) hypertension, R53.83 - Other fatigue, R74.8 - Abnormal levels of other serum enzymes, Z13.220 - Encounter for screening for lipoid disorders Vitamin D 25-OH Total 10/17/23 D51.0 - Vitamin B12 deficiency anemia due to intrinsic factor deficiency, E55.9 - Vitamin D deficiency, unspecified, I10 - Essential (primary) hypertension, R53.83 - Other fatigue, R74.8 - Abnormal levels of other serum enzymes, Z13.220 - Encounter for screening for lipoid disorders Coding Level of Care Code Est Pt Level 4 (70602) Diagnoses Hypertension, unspecified type I10 Hypertension type: unspecified Vitamin D deficiency E55.9 Pernicious anemia D51.0 Encounter for screening for lipid disorder Z13.220 Increased serum lipase level R74.8 Anxiety and depression F41.9; F32.A Additional Codes APARNA-7 Assessment Billing - APARNA-7 Assessment Tool: APARNA-7 Assessment 85023 ([id number])
[2023-10-16 12:41] VITALS: BP 130/86; PULSE 92; O2SAT 98; BMI 25.2
== END 2023-10-16 13:46 | disposition home or self-care (01) ==
PROVIDERS: PCP Internal Medicine; Visit Provider Internal Medicine
DX: I10 Essential (primary) hypertension (principal); E55.9 Vitamin D deficiency, unspecified; D51.0 Vitamin B12 deficiency anemia due to intrinsic factor deficiency; Z13.220 Encounter for screening for lipoid disorders; R74.8 Abnormal levels of other serum enzymes; F41.9 Anxiety disorder, unspecified; F32.A Depression, unspecified
CPT/HCPCS: 99214

== ENCOUNTER 2023-10-17 09:10 | Outpatient (REF) | payer OTHER, SELFPAY ==
[2023-10-17 11:58] LABS: Alanine Aminotransferase 14 U/L (0-31); Albumin Level 4.3 g/dL (3.5-5.0); Alkaline Phosphatase 95 U/L (39-117); Amylase 160 U/L (28-100); Anion Gap 16 (12-20); Aspartate Amino Transferase 17 U/L (5-31); Bilirubin Total 0.3 mg/dL (0.0-1.0); Blood Urea Nitrogen 15 mg/dL (9-16); Calcium 10.3 mg/dL (8.4-10.2); Carbon Dioxide 24 mmol/L (22-29); Chloride 107 mmol/L (96-108); Cholesterol 166 mg/dL (<200); Estimated Glomerular Filt Rate > 60; Glucose Fasting 158 mg/dL (60-99); HDL Cholesterol 49 mg/dL (>40); LDL Cholesterol Calculated 87 mg/dL (<100); Lipase 72 U/L (8-78); Potassium 3.7 mmol/L (3.3-5.1); Sodium 143 mmol/L (135-145); Total Protein 7.7 g/dL (6.5-8.0); Triglycerides 152 mg/dL (<150)
[2023-10-17 12:19] LABS: Vitamin D 25-OH Total 40.7 ng/mL (>30)
[2023-10-17 12:35] LABS: Folate 9.9 ng/mL (> or = 4.0); Vitamin B12 322 pg/mL (200-900)
== END 2023-10-17 09:11 | disposition home or self-care (01) ==
LOC: HO.HMGCLDS 09:10
PROVIDERS: PCP Internal Medicine; Visit Provider Internal Medicine
DX: E55.9 Vitamin D deficiency, unspecified (principal); R53.83 Other fatigue; R74.8 Abnormal levels of other serum enzymes; Z13.220 Encounter for screening for lipoid disorders; I10 Essential (primary) hypertension; D51.0 Vitamin B12 deficiency anemia due to intrinsic factor deficiency
CPT/HCPCS: 36415; 80053; 80061; 82150; 82306; 82607; 82746; 83690

== ENCOUNTER 2023-10-27 11:17 | Outpatient (AMB) | payer OTHER, SELFPAY ==
[2023-10-27 11:18] VITALS: BP 170/68; PULSE 89; BMI 25.5
--- NOTE | 2023-10-27 11:18 | MHC.OFFVIS ---
Vital Signs 10/27/23 11:18 Height 5 ft 2 in Weight 139 lb 5.314 oz BMI 25.5 BP 170/68 H Blood Pressure Location Lt brachial Position Sitting Pulse 89 Pulse Source Pulse Oximeter Intake Visit Reasons: Type2 DM/MNG/Hypercalcemia-please schedule 40 min Intake Note: Patient present today to follow up on T2DM, MNG, and Hypercalcemia. Patient receives DME supplies through: Pharmacy Last Diabetic Eye exam: 08/2022 Last Podiatry Visit: 08/2023 Random Glucose: 259 mg/dl HgA1C: 8.2% Locomotive Boilermaker Required: No Accompanied by: Self / Same As Patient Allergies Penicillins [PCN] Allergy (Unknown, Verified 10/27/23 11:23) RASH gabapentin Adverse Reaction (Unknown, Verified 10/27/23 11:23) Dizziness Medication List - Last Reconciled 10/27/23 by Cristi Hope MD blood sugar diagnostic (FreeStyle Lite Strips) 4x daily blood-glucose meter (FreeStyle Lite Meter kit) As directed blood-glucose meter (FreeStyle Lite Meter kit) As directed clopidogrel 75 mg PO DAILY flash glucose scanning reader (FreeStyle Oren 2 [place]) As directed flash glucose sensor (FreeStyle Oren 2 Sensor kit) As directed change every 14 days incontinence pad, liner, disp As directed-use up to 4 per day insulin glargine (Lantus Solostar U-100 Insulin) 12 units (0.12 mL) subcut BEDTIME 30 days lancets (FreeStyle Lancets) 4x daily levothyroxine 112 mcg PO DAILY wjrohb-agwdekof-ygxbmer 24,000-76,000 -120,000 unit (Creon) 1 cap PO BID 30 days metformin 1,000 mg PO BID metoprolol succinate ER 25 mg PO DAILY mycophenolate mofetil 1,000 mg PO TID@0800,1300,1900 oxybutynin chloride ER 15 mg PO DAILY pen needle, diabetic (BD Ultra-Fine Marilee Pen Needle) As directed once daily pyridostigmine bromide ER 180 mg PO 0800,1300,1900,2000 ramipril 20 mg (2 x 10 mg) PO DAILY rosuvastatin 40 mg PO DAILY 90 days [shower bench without back As directed] simethicone 180 mg PO QID 30 days HPI Comments Details: 68 YO F with a past medical history of Myasthenia Gravis, 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 She is seen in F/U. 1) Toxic MNG: She moved here from [facility] and established care with new PCP. PCP ordered thyroid ultrasound 03/15/18. This revealed multiple thyroid nodules, 4 nodules within the R lobe and 4 nodules within the L lobe. She was subsequently referred to Endocrinology. Review of records from her former [facility] in [facility] reveals prior FNA biopsy 08/23/13 of 3 nodules, all benign. The 3 nodules biopsied were the R lower pole 1.6 cm nodule (now 1.8 cm) - benign; R upper pole 1.1 cm nodule - benign; L upper 2.2 cm nodule - benign. She was found to be hyperthyroid with suppressed TSH, with uptake and scan consistent with a toxic MNG. She did meet with Dr. Becerra to discuss todal thyroidectomy, but this was thought to be a risky procedure as she requires preoperative plasmapheresis due to her myasthenia gravis. Discussion was held with Dr. Becerra with decision to proceed with I131 ablation with FNA of any concerning appearing nodules. She underwent I131 ablation with 11.56 millicurries 05/02/19. She is currently on levothyroxine 112 mcg PO daily. . She underwent FNA biopsy 07/04/2021 of her RMP 1.3 cm thyroid nodule, with benign cytology. At that time there were no nodules visualized in the L lobe of the thyroid. The L lobe was diffusely heterogenous with multiple pseudonodules, but no true nodues. 2) Hypercalcemia: She also reports a history of primary hyperparathyroidism. She had 2 parathyroid glands removed in 2013 in [facility]. She has had recurrent kidney stones. She does not take Vitamin D. She has had no fractures. She does report a history of Osteoporosis, but this does appear to have resolved as her recent BMD was normal as of 08/27/18. She did have labs that are concerning for recurrence of hyperparathyroidism with elevated PTH. Calcium remained normal, but on repeat labs 02/25/19 this was again elevated to 10.3. She was on HCTZ 25 mg PO daily HCTZ was stopped and she had labs repeated 4 weeks later. Labs 06/24/2019 were WNL with PTH 46, Calcium 9.9.. 3 She remained off HCTZ but then developed obstructive nephrolithiasis which she was hospitalized for in [facility] recently. She was resumed on HCTZ 25 mg PO daily, and remains off this now. . Repeat calcium was 10.3 3) T2DM: Initially diagnosed with T2DM in 2006 during a routine screening exam. Currently using Metformin 1000 mg PO BID, Lantus 12 units daily( not taking ) She was started on Jardiance 25 mg PO daily, but did not take this due to her being concerned about vaginal yeast infection. She tried and failed Januvia 100 mg PO daily. . She was on Trulicity but this was discontinued due to pancreatitis. However, patient still taking Trulicity 0.75 mg q.week She did not bring her meter with her today. Reports symptoms of hypoglycemia with sugar in the 's. Will treat these symptoms with candy. Does not check sugar after. No episides of hypoglycemia Family history of T2DM in her mother. Does not have eyes checked yearly, last eye exam needs to make appt , no known retinopathy. Has neuropathy. Has nephropathy, on Ramipril 10 mg PO daily. UAC 243.0 07/15/2022. Following with Dr. Mcneill from Nephrology. Has HLD, on Rosuvastatin 40 mg PO daily which she started in November 2019. LDL 276 07/15/2022. She reports poor compliance. No history of CAD, but did have CVA in the past. Diet: eats a lot of sweets Weight: Stable Has had diabetes education. CT Neck 06/05/2020: FINDINGS: No cervical adenopathy is identified. The parotid glands are homogeneous in attenuation. The submandibular glands are normal. No contour abnormality or pathologic enhancement is seen within the oral cavity or pharyngeal mucosal space. The laryngeal structures are normal. The parapharyngeal fat is preserved. The carotid sheath vasculature opacify normally. No extra mucosal soft tissue mass or fluid collection is seen. No retropharyngeal fluid collection is seen. The thyroid gland is normal. The superior mediastinum is unremarkable. The lung apices are clear. There is a small polyp or retention cyst floor of left maxillary sinus. Rest of the paranasal sinuses are well expanded and clear. There is small cysts seen in both lung apices. The temporomandibular joints are normal. No periapical disease is identified. No osseous abnormalities are seen. The imaged portions of the brain parenchyma are unremarkable. Thyroid US 11/09/2020: 06/23/2022 Right Thyroid Lobe: 2.9 x 1.2 x 1.2 cm, volume 2.2 mL. Previously 3.6 x 1.4 x 1.2 cm, volume 3.2 mL. Parenchyma: The gland echotexture is heterogeneous. Thyroid vascularity is normal. Left Thyroid Lobe: 3.2 x 1.3 x 1.0 cm, volume 2.2 mL. Previously 3.6 x 1.7 x 1.5 cm, volume 4.8 mL. Parenchyma: The gland echotexture is heterogeneous. Thyroid vascularity is normal. Isthmus: 0.2 cm in maximum AP dimension. Previously 0.2 cm. Estimated total number of nodules greater than or equal to 1 cm: 1. Mold Machine Operator nodules are described as follows: 1.? Location: Right superior. ?? ? Size: 0.26 x 0.18 x 0.26 cm, volume 0.005 mL. ?? ? Previously: 0.4 x 0.2 x 0.2 cm, volume 0.01 mL. ?? ? Nodule characteristics: ?? ? Composition: Solid (2). ?? ? Echogenicity: Hyperechoic (1). ?? ? Shape: Not taller than wide (0). ?? ? Margins: Smooth (0). ?? ? Echogenic Foci: Macrocalcifications (1). ? ACR TI-RADS total points: 4 Previous: 4 ?? ? ACR TI-RADS category: 4 Previous: 4 ? Significant change in size (>/= 20% in 2 dimensions and minimal increase of 2 mm or 50% or greater increase in volume): None. ?? ? Change in features: None. ?? ? Change in ACR TI-RADS risk category: No change. 2.? Location: Right mid. ?? ? Size: 0.42 x 0.38 x 0.41 cm, volume 0.034 mL. ?? ? Previously: 0.5 x 0.5 x 0.4 cm, volume 0.05 mL. ?? ? Nodule characteristics: ?? ? Composition: Solid (2). ?? ? Echogenicity: Isoechoic (1). ?? ? Shape: Not taller than wide (0). ?? ? Margins: Smooth (0). ?? ? Echogenic Foci: None (0). ? ACR TI-RADS total points: 3 Previous: 6 ?? ? ACR TI-RADS category: 3 Previous: 4 ? Significant change in size (>/= 20% in 2 dimensions and minimal increase of 2 mm or 50% or greater increase in volume): None. ?? ? Change in features: None. ?? ? Change in ACR TI-RADS risk category: Improved. 3.? Location: Right inferior. ?? ? Size: 1.2 x 0.9 x 0.9 cm, volume 0.39 mL. ?? ? Previously: 1.3 x 1.0 x 0.9 cm, volume 0.6 mL. ?? ? Nodule characteristics: ?? ? Composition: Solid (2). ?? ? Echogenicity: Isoechoic (1). ?? ? Shape: Not taller than wide (0). ?? ? Margins: Smooth (0). ?? ? Echogenic Foci: Peripheral calcifications (2).? ACR TI-RADS total points: 5 Previous: 11 ?? ? ACR TI-RADS category: 4 Previous: 5 ? Significant change in size (>/= 20% in 2 dimensions and minimal increase of 2 mm or 50% or greater increase in volume): No change. ?? ? Change in features: No change. ?? ? Change in ACR TI-RADS risk category: Decreased. 4.? Location: Left superior. ?? ? Size: 0.5 x 0.5 x 0.4 cm, volume 0.03 mL. ?? ? Previously: 1.3 x 0.5 x 0.5 cm, volume 0.2 mL. ?? ? Nodule characteristics: ?? ? Composition: Solid (2). ?? ? Echogenicity: Hyperechoic (1). ?? ? Shape: Not taller than wide (0). ?? ? Margins: Smooth (0). ?? ? Echogenic Foci: Macrocalcifications (1). ?? ? ACR TI-RADS total points: 4 Previous: 5 ?? ? ACR TI-RADS category: 4 Previous: 4 ? Significant change in size (>/= 20% in 2 dimensions and minimal increase of 2 mm or 50% or greater increase in volume): Decreased. ?? ? Change in features: None. ?? ? Change in ACR TI-RADS risk category: Decreased. 5.? Location: Left mid. ?? ? Size: 0.7 x 0.6 x 0.3 cm, volume 0.06 mL. ?? ? Previously: 0.6 x 0.3 x 0.3 cm, volume 0.02 mL. ?? ? Nodule characteristics: ?? ? Composition: Solid (2). ?? ? Echogenicity: Hyperechoic (1). ?? ? Shape: Not taller than wide (0). ?? ? Margins: Ill-defined (0). ?? ? Echogenic Foci: Macrocalcifications (1).? ACR TI-RADS total points: 4 Previous: 4 ?? ? ACR TI-RADS category: 4 Previous: 4 ? Significant change in size (>/= 20% in 2 dimensions and minimal increase of 2 mm or 50% or greater increase in volume): No change. ?? ? Change in features: No change. ?? ? Change in ACR TI-RADS risk category: No change. NODES: No lymphadenopathy is seen in the tissue surrounding the thyroid gland. DEXA: 08/27/18 AP SPINE L1-L3 (excluding L4): The data of L1-L4 has been changed to exclude the L4 vertebral body, because degenerative changes at this level may cause overestimation of lumbar spine density. BMD 1.058 g/cm2, Z-score 0.3, T-score -0.9, normal. LEFT FEMUR, NECK: BMD 0.933 g/cm2, Z-score 0.5, T-score -0.8, normal. LEFT FEMUR, TOTAL: BMD 1.007 g/cm2, Z-score 0.9, T-score 0.0, normal. LEFT FOREARM RADIUS 33%: BMD 0.846 g/cm2, Z-score 0.8, T-score -0.3, normal. Labs: Laboratory Tests 07/15/22 07/15/22 07/15/22 09:50 09:50 09:50 Sodium 138 Potassium 4.1 Creatinine 0.80 Estimated GFR > 60 Hemoglobin A1c % 10.1 Triglycerides 155 Cholesterol 340 LDL Cholesterol Direct 276 H HDL Cholesterol 54 Vitamin B12 466 TSH 4.84 H Free T4 Microalb/Creat Ratio 07/15/22 07/15/22 09:50 09:50 Sodium Potassium Creatinine Estimated GFR Hemoglobin A1c % Triglycerides Cholesterol LDL Cholesterol Direct HDL Cholesterol Vitamin B12 TSH Free T4 1.26 Microalb/Creat Ratio 243.0 PFSH Medical History (Updated 10/18/23 @ 22:26 by Bernadette De Souza MD) Anxiety and depression Diabetes mellitus, with long-term current use of insulin Urinary, incontinence, stress female Wheezing Vitamin B12 deficiency Occlusion of stent of peripheral artery Personal history of nicotine dependence Chronic low back pain History of CVA (cerebrovascular accident) (~10/2020) History of kidney stones Tubular adenoma of colon COVID-19 vaccine series declined Colitis without complication Ureteral stone with hydronephrosis Myasthenia gravis Pernicious anemia Myasthenia gravis Urge urinary incontinence Microalbuminuria Vitamin D deficiency Hypothyroidism Multinodular thyroid HTN (hypertension) Surgical History (Updated 10/18/23 @ 22:00 by Bernadette De Souza MD) History of surgery History of amputation of toe Hx of blood clots Status post biopsy of thyroid gland (~2021) History of colonoscopy History of esophagogastroduodenoscopy (EGD) History of bilateral cataract extraction (~2019) History of parathyroidectomy History of lithotripsy (~2013) History of hernia repair History of hysterectomy (~1984) Family History Father Lung cancer Mother Asthma Diabetes HTN (hypertension) Heart attack Sister FH: mental illness Leukemia Mental health disorder Social History Household Members: None Housing: Apartment Alcohol intake: current Alcohol intake frequency: does not drink Patient Tobacco Use Status: Former Tobacco user Tobacco use type: Cigarette Years Smoked: 45 +/- e-Cigarette/Vaping Use: Never Used Advance Directives Date on File: 03/03/22 service: No Current occupational status: disabled Cognitive needs: No Hearing needs: No Vision needs: No Physical Exam Vital Signs: Last Vital Signs Pulse 89 10/27/23 11:18 BP 170/68 H 10/27/23 11:18 BMI result Body Mass Index 25.5 Absence of Cushingoid features. Absence of acromegalic features. Neck exam reveals nl size thyroid about 15 gms. No thyroid nodules palpable. No carotid bruits present. Lungs CTA. Heart S1 S2, Reg R/R. No M/R/ G. Skin exam reveals absence of vitiligo or acanthosis nigricans. Abdominal exam reveals Soft NT/ND with NA BS. No organomegaly present. Neck Other: . Extrem Other: Visual exam of foot performed. L 5th digit amputation No ulcerations or open lesions. No onchomycosis, no callouses.Pulses 2 + distally Sensation intact to monofilament exam. Vibratory sensation sensed is decreased with 128 Hz tuning fork Results AMB Hemoglobin A1c AMB Hemoglobin A1c 8.2 % Last Edit by GRACE Malik on 10/27/23 11:35 Assessment & Plan Assessment & Plan (1) Diabetes mellitus, with long-term current use of insulin: Code(s): E11.9 - Type 2 diabetes mellitus without complications; Z79.4 - intermediate designer (current) use of insulin Category: Medical Plan: This is a 68-year-old female with a history of type 2 diabetes currently being treated metformin and basal insulin with poor glycemic control and recent history of pancreatitis and known microvascular complications namely neuropathy and CKD. Plan is to have the patient check her point cares before and 2 hours after meals. There was not enough information to adjust the regimen today. . We will talk to the patient about restarting a sensor namely Oren 3. Will schedule follow-up appointments with the patient educator . Explained to patient relationship the poor glycemic control development of progression of complications (2) Multinodular thyroid: Comment: Dr Coulter Code(s): E04.2 - Nontoxic multinodular goiter Category: Medical Plan: Status post iodine 131 ablation with residual subcentimeter nodules present ultrasound and some pseudo nodules. Currently replaced on levothyroxine 112 mcg. Appears clinically euthyroid Will check TSH and free T4 and adjust levothyroxine accordingly (3) Hypercalcemia: Code(s): E83.52 - Hypercalcemia Category: Medical Plan: Status post parathyroidectomy with last calcium being high normal. We will recheck calcium, albumin, PTH and 25 hydroxy vitamin-D Orders: Orders AMB Hemoglobin A1c Today E11.9 - Type 2 diabetes mellitus without complications, Z13.9 - Encounter for screening, unspecified, Z79.4 - intermediate designer (current) use of insulin Vitamin D 25-OH Total Today E04.2 - Nontoxic multinodular goiter, E83.52 - Hypercalcemia Parathyroid Hormone Intact Today E04.2 - Nontoxic multinodular goiter, E83.52 - Hypercalcemia Thyroid Stimulating Hormone Today E04.2 - Nontoxic multinodular goiter, E83.52 - Hypercalcemia Calcium Today E04.2 - Nontoxic multinodular goiter, E83.52 - Hypercalcemia Albumin Level Today E04.2 - Nontoxic multinodular goiter, E83.52 - Hypercalcemia Free T4 (Free Thyroxine) Today E04.2 - Nontoxic multinodular goiter, E83.52 - Hypercalcemia Medications: New blood-glucose meter,continuous (FreeStyle Oren 3 [place]) As directed 1 ea 0RF blood-glucose sensor (FreeStyle Oren 3 Sensor device) As directed change every 14 days 2 ea 5RF Discontinued flash glucose sensor (FreeStyle Oren 2 Sensor kit) Discontinued Reason: Doctor's Order As directed change every 14 days 2 ea 4RF flash glucose scanning reader (FreeStyle Oren 2 [place]) Discontinued Reason: Doctor's Order As directed 1 ea 0RF Coding Level of Care Code Est Pt Level 4 (48172) Diagnoses Diabetes mellitus, with long-term current use of insulin E11.9; Z79.4 Multinodular thyroid E04.2 Hypercalcemia E83.52
[2023-10-27 11:30] LABS: Glucose, Whole Blood 259 mg/dL (60-115)
== END 2023-10-27 12:03 | disposition home or self-care (01) ==
PROVIDERS: PCP Internal Medicine; Visit Provider Internal Medicine Endocrinology, Diabetes & Metabolism
DX: E11.9 Type 2 diabetes mellitus without complications (principal); Z79.4 Long term (current) use of insulin; E04.2 Nontoxic multinodular goiter; E83.52 Hypercalcemia; Z13.9 Encounter for screening, unspecified
CPT/HCPCS: 99214

== ENCOUNTER → 2023-10-27 11:17 | Outpatient (BNVA) | payer OTHER, SELFPAY | PROVIDERS: PCP Internal Medicine; Visit Provider Internal Medicine Endocrinology, Diabetes & Metabolism | DX: E11.22 Type 2 diabetes mellitus with diabetic chronic kidney disease (principal); N18.9 Chronic kidney disease, unspecified; E11.40 Type 2 diabetes mellitus with diabetic neuropathy, unspecified; E04.2 Nontoxic multinodular goiter; E83.52 Hypercalcemia; Z79.4 Long term (current) use of insulin; Z79.899 Other long term (current) drug therapy | CPT/HCPCS: 82947; 83036; 99212 ==

== ENCOUNTER 2023-12-16 12:34 | Outpatient (AMB) | payer OTHER, SELFPAY ==
--- NOTE | 2023-12-16 12:36 | A.OFFVIS_ITS ---
Vital Signs 12/16/23 12:40 Height 5 ft 2 in Weight 141 lb 1.533 oz BMI 25.8 BP 150/88 H Blood Pressure Location Rt brachial Position Sitting Pulse 85 Pulse Source Pulse Oximeter Intake Visit Reasons: Type2 DM/MNG/Hypercalcemia-lvm Intake Note: Patient present today to follow up on Type 2 Diabetes Mellitus. Last seen by Dr. Hope 10/27/2023. 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 She is seen in F/U. 1) Toxic MNG: [facility] and established care with new PCP. PCP ordered thyroid ultrasound 03/15/18. This revealed multiple thyroid nodules, 4 nodules within the R lobe and 4 nodules within the L lobe. She was subsequently referred to Endocrinology. 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 The 3 nodules biopsied were the R lower pole 1.6 cm nodule (now 1.8 cm) - benign; R upper pole 1.1 cm nodule - benign; L upper 2.2 cm nodule - benign. She was found to be hyperthyroid with suppressed TSH, with uptake and scan consistent with a toxic MNG. She did meet with Dr. Becerra to discuss todal thyroidectomy, but this was thought to be a risky procedure as she requires preoperative plasmapheresis due to her myasthenia gravis. Discussion was held with Dr. Becerra with decision to proceed with I131 ablation with FNA of any concerning appearing nodules. She underwent I131 ablation with 11.56 millicurries 05/02/19. She is currently on levothyroxine 112 mcg PO daily. . She underwent FNA biopsy 07/04/2021 of her RMP 1.3 cm thyroid nodule, with benign cytology. At that time there were no nodules visualized in the L lobe of the thyroid. The L lobe was diffusely heterogenous with multiple pseudonodules, but no true nodues. Last ultrasound showed decrease size of nodules. She does report some difficulty swallowing and has a f/u appt with GI. 2) Hypercalcemia: She also reports a history of primary hyperparathyroidism. She had 2 parathyroid glands removed in 2013 [facility]. She has had recurrent kidney stones. She does not take Vitamin D. She has had no fractures. She does report a history of Osteoporosis, but this does appear to have resolved as her recent BMD was normal as of 08/27/18. She did have labs that are concerning for recurrence of hyperparathyroidism with elevated PTH. Calcium remained normal, but on repeat labs 02/25/19 this was again elevated to 10.3. She was on HCTZ 25 mg PO daily HCTZ was stopped and she had labs repeated 4 weeks later. Labs 06/24/2019 were WNL with PTH 46, Calcium 9.9.. 3 She remained off HCTZ but then developed obstructive nephrolithiasis which she was hospitalized for [facility] recently. She was resumed on HCTZ 25 mg PO daily, and remains off this now. Repeat calcium was 10.3 BP has been elevated since stopping HCTZ. 3) T2DM: Initially diagnosed with T2DM in 2006 during a routine screening exam. Currently using Metformin 1000 mg PO BID, Lantus 12 units daily( not taking for the past month as she ran out.) She was started on Jardiance 25 mg PO daily, but did not take this due to her being concerned about vaginal yeast infection. She tried and failed Januvia 100 mg PO daily. . She was on Trulicity but this was discontinued due to pancreatitis. Freestyle edilma sensor [3 ] average glucose: [149 ] Glucose Management indicator [%] TIme in range: [2 ] % very high (above 250) [ 21] % high (181-250) [77 ] % in range (70-180] [ 0] % low (69-55) [ 0] % very low (below 54) No recent reports of symptoms of hypoglycemia. Will treat these symptoms with candy. Does not check sugar after. Family history of T2DM in her mother. last eye exam: this is scheduled , no known retinopathy. Has neuropathy. not painful she was seen by podiatry yesterday. 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 Has nephropathy, on Ramipril 10 mg PO daily. UAC 243.0 07/15/2022. Following with Dr. Mcneill from Nephrology. Has HLD, on Rosuvastatin 40 mg PO daily which she started in November 2019. LDL 276 07/15/2022. She reports poor compliance. No history of CAD, but did have CVA in the past. Diet: eats a lot of sweets Weight: Stable Has had diabetes education. She continues to work with RD. CT Neck 06/05/2020: FINDINGS: No cervical adenopathy is identified. The parotid glands are homogeneous in attenuation. The submandibular glands are normal. No contour abnormality or pathologic enhancement is seen within the oral cavity or pharyngeal mucosal space. The laryngeal structures are normal. The parapharyngeal fat is preserved. The carotid sheath vasculature opacify normally. No extra mucosal soft tissue mass or fluid collection is seen. No retropharyngeal fluid collection is seen. The thyroid gland is normal. The superior mediastinum is unremarkable. The lung apices are clear. There is a small polyp or retention cyst floor of left maxillary sinus. Rest of the paranasal sinuses are well expanded and clear. There is small cysts seen in both lung apices. The temporomandibular joints are normal. No periapical disease is identified. No osseous abnormalities are seen. The imaged portions of the brain parenchyma are unremarkable. Thyroid US 11/09/2020: 06/23/2022 Right Thyroid Lobe: 2.9 x 1.2 x 1.2 cm, volume 2.2 mL. Previously 3.6 x 1.4 x 1.2 cm, volume 3.2 mL. Parenchyma: The gland echotexture is heterogeneous. Thyroid vascularity is normal. Left Thyroid Lobe: 3.2 x 1.3 x 1.0 cm, volume 2.2 mL. Previously 3.6 x 1.7 x 1.5 cm, volume 4.8 mL. Parenchyma: The gland echotexture is heterogeneous. Thyroid vascularity is normal. Isthmus: 0.2 cm in maximum AP dimension. Previously 0.2 cm. Estimated total number of nodules greater than or equal to 1 cm: 1. Passenger Car Conductor nodules are described as follows: 1.? Location: Right superior. ?? ? Size: 0.26 x 0.18 x 0.26 cm, volume 0.005 mL. ?? ? Previously: 0.4 x 0.2 x 0.2 cm, volume 0.01 mL. ?? ? Nodule characteristics: ?? ? Composition: Solid (2). ?? ? Echogenicity: Hyperechoic (1). ?? ? Shape: Not taller than wide (0). ?? ? Margins: Smooth (0). ?? ? Echogenic Foci: Macrocalcifications (1). ? ACR TI-RADS total points: 4 Previous: 4 ?? ? ACR TI-RADS category: 4 Previous: 4 ? Significant change in size (>/= 20% in 2 dimensions and minimal increase of 2 mm or 50% or greater increase in volume): None. ?? ? Change in features: None. ?? ? Change in ACR TI-RADS risk category: No change. 2.? Location: Right mid. ?? ? Size: 0.42 x 0.38 x 0.41 cm, volume 0.034 mL. ?? ? Previously: 0.5 x 0.5 x 0.4 cm, volume 0.05 mL. ?? ? Nodule characteristics: ?? ? Composition: Solid (2). ?? ? Echogenicity: Isoechoic (1). ?? ? Shape: Not taller than wide (0). ?? ? Margins: Smooth (0). ?? ? Echogenic Foci: None (0). ? ACR TI-RADS total points: 3 Previous: 6 ?? ? ACR TI-RADS category: 3 Previous: 4 ? Significant change in size (>/= 20% in 2 dimensions and minimal increase of 2 mm or 50% or greater increase in volume): None. ?? ? Change in features: None. ?? ? Change in ACR TI-RADS risk category: Improved. 3.? Location: Right inferior. ?? ? Size: 1.2 x 0.9 x 0.9 cm, volume 0.39 mL. ?? ? Previously: 1.3 x 1.0 x 0.9 cm, volume 0.6 mL. ?? ? Nodule characteristics: ?? ? Composition: Solid (2). ?? ? Echogenicity: Isoechoic (1). ?? ? Shape: Not taller than wide (0). ?? ? Margins: Smooth (0). ?? ? Echogenic Foci: Peripheral calcifications (2).? ACR TI-RADS total points: 5 Previous: 11 ?? ? ACR TI-RADS category: 4 Previous: 5 ? Significant change in size (>/= 20% in 2 dimensions and minimal increase of 2 mm or 50% or greater increase in volume): No change. ?? ? Change in features: No change. ?? ? Change in ACR TI-RADS risk category: Decreased. 4.? Location: Left superior. ?? ? Size: 0.5 x 0.5 x 0.4 cm, volume 0.03 mL. ?? ? Previously: 1.3 x 0.5 x 0.5 cm, volume 0.2 mL. ?? ? Nodule characteristics: ?? ? Composition: Solid (2). ?? ? Echogenicity: Hyperechoic (1). ?? ? Shape: Not taller than wide (0). ?? ? Margins: Smooth (0). ?? ? Echogenic Foci: Macrocalcifications (1). ?? ? ACR TI-RADS total points: 4 Previous: 5 ?? ? ACR TI-RADS category: 4 Previous: 4 ? Significant change in size (>/= 20% in 2 dimensions and minimal increase of 2 mm or 50% or greater increase in volume): Decreased. ?? ? Change in features: None. ?? ? Change in ACR TI-RADS risk category: Decreased. 5.? Location: Left mid. ?? ? Size: 0.7 x 0.6 x 0.3 cm, volume 0.06 mL. ?? ? Previously: 0.6 x 0.3 x 0.3 cm, volume 0.02 mL. ?? ? Nodule characteristics: ?? ? Composition: Solid (2). ?? ? Echogenicity: Hyperechoic (1). ?? ? Shape: Not taller than wide (0). ?? ? Margins: Ill-defined (0). ?? ? Echogenic Foci: Macrocalcifications (1).? ACR TI-RADS total points: 4 Previous: 4 ?? ? ACR TI-RADS category: 4 Previous: 4 ? Significant change in size (>/= 20% in 2 dimensions and minimal increase of 2 mm or 50% or greater increase in volume): No change. ?? ? Change in features: No change. ?? ? Change in ACR TI-RADS risk category: No change. NODES: No lymphadenopathy is seen in the tissue surrounding the thyroid gland. DEXA: 08/27/18 AP SPINE L1-L3 (excluding L4): The data of L1-L4 has been changed to exclude the L4 vertebral body, because degenerative changes at this level may cause overestimation of lumbar spine density. BMD 1.058 g/cm2, Z-score 0.3, T-score -0.9, normal. LEFT FEMUR, NECK: BMD 0.933 g/cm2, Z-score 0.5, T-score -0.8, normal. LEFT FEMUR, TOTAL: BMD 1.007 g/cm2, Z-score 0.9, T-score 0.0, normal. LEFT FOREARM RADIUS 33%: BMD 0.846 g/cm2, Z-score 0.8, T-score -0.3, normal. [facility] Medical History Anxiety and depression Diabetes mellitus, with long-term current use of insulin Urinary, incontinence, stress female Wheezing Vitamin B12 deficiency Occlusion of stent of peripheral artery Personal history of nicotine dependence Chronic low back pain History of CVA (cerebrovascular accident) (~10/2020) History of kidney stones Tubular adenoma of colon COVID-19 vaccine series declined Colitis without complication Ureteral stone with hydronephrosis Myasthenia gravis Pernicious anemia Myasthenia gravis Urge urinary incontinence Microalbuminuria Vitamin D deficiency Hypothyroidism Multinodular thyroid HTN (hypertension) Surgical History History of surgery History of amputation of toe Hx of blood clots Status post biopsy of thyroid gland (~2021) History of colonoscopy History of esophagogastroduodenoscopy (EGD) History of bilateral cataract extraction (~2019) History of parathyroidectomy History of lithotripsy (~2013) History of hernia repair History of hysterectomy (~1984) Family History Father Lung cancer Mother Asthma Diabetes HTN (hypertension) Heart attack Sister FH: mental illness Leukemia Mental health disorder Social History Household Members: None Housing: Apartment Alcohol intake: current Alcohol intake frequency: does not drink Patient Tobacco Use Status: Former Tobacco user Tobacco use type: Cigarette Years Smoked: 45 +/- e-Cigarette/Vaping Use: Never Used Advance Directives Date on File: 03/03/22 service: No Current occupational status: disabled Cognitive needs: No Hearing needs: No Vision needs: No Physical Exam Vital Signs: Last Vital Signs Pulse 85 12/16/23 12:40 BP 150/88 H 12/16/23 12:40 BMI result Body Mass Index 25.8 Results Reviewed Results Reviewed: Laboratory Last Values Glucose (Clinic) 100 mg/dL (60-115) 12/16/23 12:48 Laboratory Tests 10/30/22 02/13/23 06/20/23 09:42 09:19 09:50 Hgb A1c (Clinic) Hemoglobin A1c % 6.3 H 7.2 H Calcium AST ALT Albumin Cholesterol LDL Cholesterol, Calc HDL Cholesterol Vitamin B12 25-OH Vitamin D Total TSH 0.05 L 13.46 H Free T4 1.39 0.78 10/17/23 10/27/23 09:39 11:30 Hgb A1c (Clinic) 8.2 H Hemoglobin A1c % Calcium 10.3 H D AST 17 ALT 14 Albumin 4.3 Cholesterol 166 LDL Cholesterol, Calc 87 HDL Cholesterol 49 Vitamin B12 322 25-OH Vitamin D Total 40.7 TSH Free T4 Assessment & Plan Assessment & Plan (1) Diabetes mellitus, with long-term current use of insulin: Code(s): E11.9 - Type 2 diabetes mellitus without complications; Z79.4 - detention (current) use of insulin Category: Medical Plan: A1C has increased to 8.2% up from 6.3% last year and 7.2% earlier this year. MOst recent FS edilma download shows improvment. She will restart Lantus insulin in a new prescription for metformin extended release will be sent off as she is having some GI intolerability. Diabetes medications: Lantus 12 units daily Metformin ER 1000 mg twice daily The patient was counseled to always carry a source of sugar and on the rule of 15's: Take 3 glucose tablets and repeat again in 15 minutes if blood sugar is not in normal range. Continue to repeat every 15 minutes until blood sugar is normal. The patient was counseled to regularly space meals and snacks. Missed doses of insulin raise A1C which increases the risk of diabetes complications including damage to the eyes, kidneys, blood vessels and nerves of the body. Desired A1C is 7% (avg bg 154) (2) Multinodular thyroid: Code(s): E04.2 - Nontoxic multinodular goiter Category: Medical Plan: Status post iodine 131 ablation with residual subcentimeter nodules present ultrasound and some pseudo nodules. Currently replaced on levothyroxine 112 mcg. Appears clinically euthyroid Will check TSH and free T4 and adjust levothyroxine accordingly (3) Hypothyroidism: Code(s): E03.9 - Hypothyroidism, unspecified Category: Medical Qualifiers: Hypothyroidism type: postablative Qualified Code(s): E89.0 - Postprocedural hypothyroidism Plan: As above (4) Primary hyperparathyroidism: Code(s): E21.0 - Primary hyperparathyroidism Category: Medical Plan: Refer to previous note from Dr. Hope. Labs ordered. Calcium 10.3 last visit. 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 metoprolol succinate ER 50 mg PO DAILY 30 days 30 tabs 11RF I10 - Essential (primary) hypertension Refilled insulin glargine (Lantus Solostar U-100 Insulin) 12 units (0.12 mL) subcut BEDTIME 30 days 3.6 mL 11RF Discontinued metoprolol succinate ER Discontinued Reason: Doctor's Order 25 mg PO DAILY 90 tabs 3RF metformin Discontinued Reason: Doctor's Order 1,000 mg PO BID 60 tabs 5RF E89.0 - Postprocedural hypothyroidism Coding Level of Care Code Est Pt Level 5 (57584) Complex EM visit Add On G2211 Diagnoses Diabetes mellitus, with long-term current use of insulin E11.9; Z79.4 Multinodular thyroid E04.2 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 Primary hyperparathyroidism E21.0 Time Spent (min) 50 Comment Time spent reviewing labs and reports, reviewing provider notes, exam,documenting
[2023-12-16 12:40] VITALS: BP 150/88; PULSE 85; BMI 25.8
[2023-12-16 12:53] LABS: Glucose, Whole Blood 100 mg/dL (60-115)
== END 2023-12-16 13:18 | disposition home or self-care (01) ==
PROVIDERS: PCP Internal Medicine; Visit Provider Nurse Practitioner Adult Health
DX: E11.9 Type 2 diabetes mellitus without complications (principal); Z79.4 Long term (current) use of insulin; E04.2 Nontoxic multinodular goiter; E21.0 Primary hyperparathyroidism; E89.0 Postprocedural hypothyroidism
CPT/HCPCS: 99215; G2211

== ENCOUNTER → 2023-12-16 12:34 | Outpatient (BNVA) | payer OTHER, SELFPAY | PROVIDERS: PCP Internal Medicine; Visit Provider Nurse Practitioner Adult Health | DX: E11.9 Type 2 diabetes mellitus without complications (principal); E04.2 Nontoxic multinodular goiter; E89.0 Postprocedural hypothyroidism; E21.0 Primary hyperparathyroidism; Z79.4 Long term (current) use of insulin; Z79.899 Other long term (current) drug therapy | CPT/HCPCS: 82947; 99212 ==

== ENCOUNTER 2023-12-30 11:19 | Outpatient (AMB) | payer OTHER, SELFPAY ==
--- NOTE | 2023-12-30 11:22 | MHC.OFFVIS ---
Vital Signs 12/30/23 11:53 Height 5 ft 2 in Weight 138 lb 14.259 oz BMI 25.4 BP 165/92 H Blood Pressure Location Rt brachial Position Sitting Pulse 92 Pulse Source Monitor Pulse Oximetry (%) 98 Intake Visit Reasons: 6 months follow up Intake Note: Patient is present for 6 Month Follow Up Patient is taking creon Patient has lost some weight loss and she states she is concerned on her weight. She has been trying to gain a few pounds. Patient states that she is currently on Creon but still has a lot of discomfort/pain. She is very bloated after eating anything and will have a bowel movement as soon as she eats something. She states that she will have Viviana with Honey and it does help with gas Patient's blood pressure is elevated today, states she did take her medication this morning but states that she usually has a high BP reading. Assistant Department Manager Required: No Allergies Penicillins [PCN] Allergy (Unknown, Verified 12/30/23 11:57) RASH gabapentin Adverse Reaction (Unknown, Verified 12/30/23 11:57) Dizziness HPI HPI 6 months follow up : Details: Assessment & Plan (1) Irritable bowel syndrome with diarrhea: Code(s): K58.0 - Irritable bowel syndrome with diarrhea Plan: She says she received the simethicone and is helping her with the bloating. However, she has increased trouble with borborygmi and a feeling of swelling on the right side of her abdomen under the ribcage. She has stopped taking the pantoprazole in the morning and famotidine at bedtime. She denies any trouble with heartburn or GERD. This likely was discontinued because her history of pancreatitis and trying to simplify the pill burden.. She is having increased gas and bloating and in the past this was helped by Creon. I am not sure why this was discontinued but she asks to restarted and of course I will. I educate her that taking 2 in the morning and 2 at night has been shown to be just as affective as breaking it up 4 times a day and increases adherent so she is going to try this. Return office visit in 6 weeks. (2) GERD (gastroesophageal reflux disease): Comment: sees [facility]aron angie Code(s): K21.9 - Gastro-esophageal reflux disease without esophagitis Medications: New [id number] 24,000-76,000 -120,000 unit (Creon) administer with meals and/or snacks 1 cap PO BID 30 days 60 caps 6RF K58.9 - Irritable bowel syndrome without diarrhea Refilled simethicone after meals 180 mg PO QID 30 days 120 caps 6RF TODAY'S VISIT She is now having bowel irritability with the increase of her metformin to bid dosing. Running to the BR post prandially and even not after eating. Creskaren helped with the perceived gas and boborygmus. She never received the simethicne. Can not use traditional IBS/bowel relaxers r/t MG, will trial imipramine 10mg qhs. She has a perceived umbilical bulge and will get US to evaluate as PE indeterminate. ROV 6 weeks. [facility] Medical History Anxiety and depression Diabetes mellitus, with long-term current use of insulin Urinary, incontinence, stress female Wheezing Vitamin B12 deficiency Occlusion of stent of peripheral artery Personal history of nicotine dependence Chronic low back pain History of CVA (cerebrovascular accident) (~10/2020) History of kidney stones Tubular adenoma of colon COVID-19 vaccine series declined Colitis without complication Ureteral stone with hydronephrosis Myasthenia gravis Pernicious anemia Myasthenia gravis Urge urinary incontinence Microalbuminuria Vitamin D deficiency Hypothyroidism Multinodular thyroid HTN (hypertension) Surgical History History of surgery History of amputation of toe Hx of blood clots Status post biopsy of thyroid gland (~2021) History of colonoscopy History of esophagogastroduodenoscopy (EGD) History of bilateral cataract extraction (~2019) History of parathyroidectomy History of lithotripsy (~2013) History of hernia repair History of hysterectomy (~1984) Family History Father Lung cancer Mother Asthma Diabetes HTN (hypertension) Heart attack Sister FH: mental illness Leukemia Mental health disorder Social History Household Members: None Housing: Apartment Alcohol intake: current Alcohol intake frequency: does not drink Patient Tobacco Use Status: Former Tobacco user Tobacco use type: Cigarette Years Smoked: 45 +/- e-Cigarette/Vaping Use: Never Used Advance Directives Date on File: 03/03/22 service: No Current occupational status: disabled Cognitive needs: No Hearing needs: No Vision needs: No Review of Systems Const Denies fatigue, Denies fever(s), Denies night sweats, Denies poor appetite and Denies weight loss ENT Reports Normal hearing present, Denies dental pain, Denies dysphagia, Denies hearing loss, Denies mouth pain, Denies odynophagia, Denies throat swelling, Denies tongue swelling and Reports other (Dentition adequate) Card Reports no additional complaints Resp Reports no additional complaints GI Details: Reports abdominal pain, Denies melena, Reports bloating, Denies hematochezia, Denies constipation, Denies GI cramping, Denies dysphagia, Denies excessive flatus, Denies early satiety, Denies heartburn, Denies diarrhea, Denies nausea, Denies odynophagia, Denies vomiting and Denies hematemesis Skin/Breast Denies pruritus, Denies lesions, Denies rash and Denies jaundice Neuro Reports Normal hearing present and Denies Abnormal speech present Endo Denies fatigue Aller/Immun Denies throat swelling and Denies tongue swelling Physical Exam Vital Signs: Last Vital Signs Pulse 92 12/30/23 11:53 BP 165/92 H 12/30/23 11:53 Pulse Ox 98 12/30/23 11:53 BMI result Body Mass Index 25.4 Const General: cooperative, no acute distress, well developed and well groomed Nutritional Appearance: average body habitus and well nourished Orientation/consciousness: oriented to person, oriented to place and oriented to time Limitations: No language barrier HEENT Head: Yes normocephalic and Yes atraumatic Eyes General: appearance normal, both eyes and all related structures Pupils: Equal, round and reactive pupils present Neck Neck: Yes normal visual inspection and Yes no lymphadenopathy Thyroid: Thyroid normal Resp Effort & Inspection: normal respiratory effort and able to speak in complete sentences Auscultation: clear to auscultation bilaterally Cardio Rate: regular rate Rhythm: regular rhythm Heart sounds: Normal, physiologic split S2 sound present Peripheral pulses: radial pulses present and posterior tibial pulses present GI Inspection: No distended and No Abdominal panniculus present Palpation (GI): Soft to palpation, nontender, no guarding, not rigid and No hepatosplenomegaly present Percussion: Yes normal to percussion Auscultation: normal bowel sounds Rectal Exam - Female: deferred Skin General skin exam: no rashes or lesions noted, turgor normal, skin not dry, no jaundice, No spider nevi and no striae Rashes: no rashes Nails: normal Neuro General: oriented to person, oriented to place and oriented to time Cranial nerves: Yes Equal, round and reactive pupils present and Yes Normal hearing present Speech: No Abnormal speech present Extrem General: Yes normal to inspection, No clubbing, No cyanosis and No edema Psych Appearance: grossly normal and well kempt Mental Status: mental status grossly normal Speech and movement: Normal speech and movement present Affect: normal affect Attitude: cooperative Thought process: Normal thought process present and not confabulating Thought content: Normal thought content present Insight: Limited insight present (Psych) Judgement: Limited judgement present (Psych) Assessment & Plan Assessment & Plan (1) GERD (gastroesophageal reflux disease): Comment: sees [facility] Code(s): K21.9 - Gastro-esophageal reflux disease without esophagitis Category: Medical (2) Irritable bowel syndrome with diarrhea: Code(s): K58.0 - Irritable bowel syndrome with diarrhea Category: Medical (3) Umbilical pain: Code(s): R10.33 - Periumbilical pain Category: Medical Plan She is now having bowel irritability with the increase of her metformin to bid dosing. Running to the BR post prandially and even not after eating. Creson helped with the perceived gas and boborygmus. She never received the simethicne. Can not use traditional IBS/bowel relaxers r/t MG, will trial imipramine 10mg qhs. She has a perceived umbilical bulge and will get US to evaluate as PE indeterminate. ROV 6 weeks. Orders: Orders US abdomen limited 12/30/23 R10.33 - Periumbilical pain Medications: New imipramine HCl 10 mg PO BEDTIME 30 tabs 3RF 30 days K58.0 - Irritable bowel syndrome with diarrhea Coding Level of Care Code Est Pt Level 3 (27189) Diagnoses GERD (gastroesophageal reflux disease) K21.9 Irritable bowel syndrome with diarrhea K58.0 Umbilical pain R10.33
[2023-12-30 11:53] VITALS: BP 165/92; PULSE 92; O2SAT 98; BMI 25.4
== END 2023-12-30 12:30 | disposition home or self-care (01) ==
PROVIDERS: PCP Internal Medicine; Visit Provider Nurse Practitioner
DX: K21.9 Gastro-esophageal reflux disease without esophagitis (principal); K58.0 Irritable bowel syndrome with diarrhea; R10.33 Periumbilical pain
CPT/HCPCS: 99213

== ENCOUNTER → 2023-12-30 11:19 | Outpatient (BNVA) | payer OTHER, SELFPAY | PROVIDERS: PCP Internal Medicine; Visit Provider Nurse Practitioner | DX: K58.0 Irritable bowel syndrome with diarrhea (principal); K21.9 Gastro-esophageal reflux disease without esophagitis; R10.33 Periumbilical pain | CPT/HCPCS: 99212 ==

== ENCOUNTER 2024-01-04 13:21 | Outpatient (AMB) | payer OTHER, SELFPAY ==
--- NOTE | 2024-01-04 13:31 | MHC.AMDMED ---
Intake Intake Visit Reasons: T2DM long-term/CONFIRMED (current use insulin) Thread Laster Required: No Accompanied by: Self / Same As Patient Allergies Penicillins [PCN] Allergy (Unknown, Verified 12/30/23 11:57) RASH gabapentin Adverse Reaction (Unknown, Verified 12/30/23 11:57) Dizziness HPI Comprehensive Diabetes Asmnt Most Recent Diabetes Results: Hemoglobin A1c 7.1 % 11/26/18 Microalb/Creat Ratio 288.6 ug/mg cr (<30) H 06/20/23 Cholesterol 166 mg/dL (<200) 10/17/23 HDL Cholesterol 49 mg/dL (>40) 10/17/23 Triglycerides 152 mg/dL (<150) H 10/17/23 Creatinine 0.65 mg/dL (0.5-1.4) 10/17/23 Blood Urea Nitrogen 15 mg/dL (9-16) 10/17/23 Sodium 143 mmol/L (135-145) 10/17/23 Potassium 3.7 mmol/L (3.3-5.1) 10/17/23 Chloride 107 mmol/L (96-108) 10/17/23 Carbon Dioxide 24 mmol/L (22-29) 10/17/23 Calcium 10.3 mg/dL (8.4-10.2) H 10/17/23 AST 17 U/L (5-31) 10/17/23 ALT 14 U/L (0-31) 10/17/23 Total Protein 7.7 g/dL (6.5-8.0) 10/17/23 Albumin 4.3 g/dL (3.5-5.0) 10/17/23 [facility] Medical History Anxiety and depression Diabetes mellitus, with long-term current use of insulin Urinary, incontinence, stress female Wheezing Vitamin B12 deficiency Occlusion of stent of peripheral artery Personal history of nicotine dependence Chronic low back pain History of CVA (cerebrovascular accident) (~10/2020) History of kidney stones Tubular adenoma of colon COVID-19 vaccine series declined Colitis without complication Ureteral stone with hydronephrosis Myasthenia gravis Pernicious anemia Myasthenia gravis Urge urinary incontinence Microalbuminuria Vitamin D deficiency Hypothyroidism Multinodular thyroid HTN (hypertension) Surgical History History of surgery History of amputation of toe Hx of blood clots Status post biopsy of thyroid gland (~2021) History of colonoscopy History of esophagogastroduodenoscopy (EGD) History of bilateral cataract extraction (~2019) History of parathyroidectomy History of lithotripsy (~2013) History of hernia repair History of hysterectomy (~1984) Family History Father Lung cancer Mother Asthma Diabetes HTN (hypertension) Heart attack Sister FH: mental illness Leukemia Mental health disorder Social History Household Members: None Housing: Apartment Alcohol intake: current Alcohol intake frequency: does not drink Patient Tobacco Use Status: Former Tobacco user Tobacco use type: Cigarette Years Smoked: 45 +/- e-Cigarette/Vaping Use: Never Used Advance Directives Date on File: 03/03/22 service: No Current occupational status: disabled Cognitive needs: No Hearing needs: No Vision needs: No Assessment & Plan Assessment & Plan (1) Diabetes mellitus, with long-term current use of insulin: Code(s): E11.9 - Type 2 diabetes mellitus without complications; Z79.4 - technician terminal and repeater (current) use of insulin Plan: Patient was given freestyle Oren 2 sensors from pharmacy Patient inserted freestyle Oren 2 sensor however she rarely scan sensor so there is very little data, patient reports that sensor fell off yesterday. Patient does have current freestyle Oren 3 sensor prescription Patient also reports that she has not restarted Lantus because she is not able to pick it up, called pharmacy to find out why she can not pick it up but pharmacy was closed for lunch during visit. Patient given sample freestyle Orne 3 sensor, freestyle Oren 3 stepan set up on patient's cellphone. Patient connected to clinic Oren view account Patient also reports she never received prescription for metformin ER, in patient's chart is stated that [facility] does not cover metformin ER so Dr. Hope had sent prescription for metformin 1000 mg b.i.d. to replace metformin ER prescription. Due to GI she is patient can not tolerate the metformin. Message sent to provider, and rn clinical research to see if there is the option to submit PA for metformin ER 1000 mg. If patient can not get coverage for metformin ER recommend she discuss alternative medication that visit on 02/16/2024 Instructed patient sensors water proof you can shower, or swim do not submerge sensor in water for over 30 minutes Is sensor falls off cannot put back in you need to replace sensor, customer service number given to patient for sensor replacement Sensor placed on the back of left arm Patient left visit with sensor in warmup Reviewed how to interpret trend arrows Reminded patient that to check finger sticks if symptoms do not match sensor reading. Discussed lag time between finger stick and sensor data.? Instructed patient she should always keep blood glucometer for backup testing if needed Reviewed delay of CGM from fingersticks Reminded pt that if symptoms do not match sensor still needs to check fingersticks. Portions of this note were created using voice recognition software, please excuse any words or phrases that may have been misinterpreted. Patient Instructions: Patient instruction: CGM provides information on blood glucose control throughout the day, including hyperglycemia and hypoglycemia. ? Continue to monitor blood glucose as instructed. Follow nutrition guidelines provided. Report any discomfort promptly to health care provider. ?Stay well-hydrated. You can bathe ,shower, swim and exercise while wearing the glucose sensor. Do not submerge glucose sensor in water for more than 30 minutes. Resume Lantus 12 units daily Follow-up with RD 01/12/2024 Follow-up with OUTSIDE SALES ACCOUNT EXECUTIVE 02/16/2024 Follow-up with peer educator in 10 weeks Coding Level of Care Code Est Pt Level 1 (57663) Diagnoses Diabetes mellitus, with long-term current use of insulin E11.9; Z79.4
== END 2024-01-04 14:07 | disposition home or self-care (01) ==
PROVIDERS: PCP Internal Medicine; Visit Provider Registered Nurse Diabetes Educator
DX: E11.9 Type 2 diabetes mellitus without complications (principal); Z79.4 Long term (current) use of insulin

== ENCOUNTER → 2024-01-04 13:21 | Outpatient (BNVA) | payer OTHER, SELFPAY | PROVIDERS: PCP Internal Medicine; Visit Provider Registered Nurse Diabetes Educator | DX: E11.9 Type 2 diabetes mellitus without complications (principal); Z79.4 Long term (current) use of insulin | CPT/HCPCS: 99211 ==

== ENCOUNTER 2024-01-12 11:33 | Outpatient (AMB) | payer OTHER, SELFPAY ==
[2024-01-12 11:47] VITALS: BMI 25.6
--- NOTE | 2024-01-12 11:47 | A.OFFVIS_ITS ---
VS Expanded 01/12/24 11:47 Height 5 ft 2 in Weight 139 lb 12.369 oz BMI 25.6 Intake Visit Reasons: DM-lvm Allergies Penicillins [PCN] Allergy (Unknown, Verified 12/30/23 11:57) RASH gabapentin Adverse Reaction (Unknown, Verified 12/30/23 11:57) Dizziness Nutrition Presentation Details: Pt presents for MNT f/u for T2DM Pt reports doing well, having 3 meals/day, working on following healthy plate method and snacks on fruits or crackers Drinks water, milk or juice diluted with water fish: including 1-2 x/wk denies constipation /diarrhea reports feeling well overall , no questions or concerns expressedat this time water: 24 oz/day , coffee 4 cups/day BS Monitoring Most Recent Diabetes Results: Cholesterol 171 mg/dL (<200) 01/13/24 HDL Cholesterol 48 mg/dL (>40) 01/13/24 Triglycerides 95 mg/dL (<150) 01/13/24 Creatinine 0.65 mg/dL (0.5-1.4) 10/17/23 Blood Urea Nitrogen 15 mg/dL (9-16) 10/17/23 Sodium 143 mmol/L (135-145) 10/17/23 Potassium 3.7 mmol/L (3.3-5.1) 10/17/23 Chloride 107 mmol/L (96-108) 10/17/23 Carbon Dioxide 24 mmol/L (22-29) 10/17/23 Calcium 9.8 mg/dL (8.4-10.2) 01/13/24 AST 17 U/L (5-31) 10/17/23 ALT 14 U/L (0-31) 10/17/23 Total Protein 7.7 g/dL (6.5-8.0) 10/17/23 Albumin 4.1 g/dL (3.5-5.0) 01/13/24 [facility] Medical History Anxiety and depression Diabetes mellitus, with long-term current use of insulin Urinary, incontinence, stress female Wheezing Vitamin B12 deficiency Occlusion of stent of peripheral artery Personal history of nicotine dependence Chronic low back pain History of CVA (cerebrovascular accident) (~10/2020) History of kidney stones Tubular adenoma of colon COVID-19 vaccine series declined Colitis without complication Ureteral stone with hydronephrosis Myasthenia gravis Pernicious anemia Myasthenia gravis Urge urinary incontinence Microalbuminuria Vitamin D deficiency Hypothyroidism Multinodular thyroid HTN (hypertension) Surgical History History of surgery History of amputation of toe Hx of blood clots Status post biopsy of thyroid gland (~2021) History of colonoscopy History of esophagogastroduodenoscopy (EGD) History of bilateral cataract extraction (~2019) History of parathyroidectomy History of lithotripsy (~2013) History of hernia repair History of hysterectomy (~1984) Family History Father Lung cancer Mother Asthma Diabetes HTN (hypertension) Heart attack Sister FH: mental illness Leukemia Mental health disorder Social History Household Members: None Housing: Apartment Alcohol intake: current Alcohol intake frequency: does not drink Patient Tobacco Use Status: Former Tobacco user Tobacco use type: Cigarette Years Smoked: 45 +/- e-Cigarette/Vaping Use: Never Used Advance Directives Date on File: 03/03/22 service: No Current occupational status: disabled Cognitive needs: No Hearing needs: No Vision needs: No Assessment & Plan Assessment & Plan (1) Diabetes mellitus, with long-term current use of insulin: Code(s): E11.9 - Type 2 diabetes mellitus without complications; Z79.4 - penitentiary (current) use of insulin Category: Medical Plan: Wt: 66 Kg ( 07/23/23 ), 64kg (08/2023), 62 kg (09/2023), 64 kg (01/2024) Est kcal needs as per MSJ: 1600 (40% carb, 30% protein/fat) Est fluid needs as per 25 ml/d: 1700 Est prot per day as per 1 g/kg bw: 66 Recommend fiber intake : 8-10 g per day and gradually increase to 25-28 g per day for women and 35-38 g for men or as tolerated Recommend sodium intake per day : less than 2000 mg Educated patient on: ( R = reviewed V = verbalizes understanding N/R = needs review N/A = not applicable * Food sources of carbohydrate, adequate serving sizes and its role in various health conditions: R * Differences between complex carbohydrates a simple carbohydrates, role of fiber in diet: R * Lean protein sources of foods: R * Differences between types of fats and role in diet (mono on saturated fat fatty acids, saturated fatty acids, trans fats): R * Food sources of sodium in salt and healthy modifications for heart health in kidney health: R * Vitamins and minerals: R * Healthy plate method concept: R, R * Physical activity: Benefits a precaution: R * Hypoglycemia protocol (rule of 15): R V * Dietary prevention of Hyperglycemia: R V Plan Continue following healhty plate method work on reducing caffeine gradually to 2 c vs 4 c/day Medications: Discontinued levothyroxine Discontinued Reason: Doctor's Order 112 mcg PO DAILY 90 tabs 1RF E89.0 - Postprocedural hypothyroidism levothyroxine Discontinued Reason: Duplicate 125 mcg PO DAILY 30 days 30 caps 5RF E89.0 - Postprocedural hypothyroidism levothyroxine Discontinued Reason: Doctor's Order 125 mcg PO DAILY 30 days 30 caps 6RF Patient Instructions: Choose low fat foods (baked, remove fries ) Keep hydrated by having water with meals snacks Include omega 3 fatty acids (fish at least twice a week) Keep physically active as able , walk 10 minutes Coding Level of Care Code Nutr Indiv Subseq (90759) Diagnoses Diabetes mellitus, with long-term current use of insulin E11.9; Z79.4 Time Spent (min) 30
== END 2024-01-12 12:20 | disposition home or self-care (01) ==
PROVIDERS: PCP Internal Medicine; Visit Provider Dietitian, Registered
DX: E11.9 Type 2 diabetes mellitus without complications (principal); Z79.4 Long term (current) use of insulin

== ENCOUNTER → 2024-01-12 11:33 | Outpatient (BNVA) | payer OTHER, SELFPAY | PROVIDERS: PCP Internal Medicine; Visit Provider Dietitian, Registered | DX: E11.9 Type 2 diabetes mellitus without complications (principal); Z79.4 Long term (current) use of insulin | CPT/HCPCS: 97803 ==

== ENCOUNTER 2024-01-13 08:03 | Outpatient (REF) | payer OTHER, SELFPAY ==
[2024-01-13 10:58] LABS: Albumin Level 4.1 g/dL (3.5-5.0); Calcium 9.8 mg/dL (8.4-10.2); Cholesterol 171 mg/dL (<200); HDL Cholesterol 48 mg/dL (>40); LDL Cholesterol Calculated 104 mg/dL (<100); Triglycerides 95 mg/dL (<150)
[2024-01-13 11:15] LABS: Free T4 (Free Thyroxine) 0.91 ng/dL (0.71-1.85); Thyroid Stimulating Hormone 9.02 uIU/mL (0.32-4.0); Vitamin D 25-OH Total 45.8 ng/mL (>30)
[2024-01-13 11:35] LABS: Parathyroid Hormone Intact 82.3 pg/mL (8.7-77.1)
== END 2024-01-13 08:04 | disposition home or self-care (01) ==
LOC: HO.HMGCLDS 08:03
PROVIDERS: Internal Medicine Endocrinology, Diabetes & Metabolism; PCP Internal Medicine; Visit Provider Nurse Practitioner Adult Health
DX: E78.5 Hyperlipidemia, unspecified (principal); E04.2 Nontoxic multinodular goiter; E83.52 Hypercalcemia
CPT/HCPCS: 36415; 80061; 82040; 82306; 82310; 83970; 84439; 84443

== ENCOUNTER 2024-01-20 12:22 | Outpatient (AMB) | payer OTHER, SELFPAY ==
[2024-01-20 12:59] VITALS: BP 140/72; PULSE 84; BMI 25.7
--- NOTE | 2024-01-20 12:59 | A.OFFVIS_ITS ---
Vital Signs 01/20/24 12:59 Height 5 ft 2 in Weight 140 lb 10.479 oz BMI 25.7 BP 140/72 H Blood Pressure Location Lt brachial Position Sitting Pulse 84 Pulse Source Monitor Intake Visit Reasons: 3 mth f/up Intake Note: 3 mth f/up/ pt been with 2 weeks of chest pain when she sleeping Truck Bracer Required: No Accompanied by: Self / Same As Patient Allergies Penicillins [PCN] Allergy (Unknown, Verified 12/30/23 11:57) RASH gabapentin Adverse Reaction (Unknown, Verified 12/30/23 11:57) Dizziness Medication List - Last Reconciled 01/20/24 by Duke Izaguirre MD blood pressure test kit-medium As directed to monitor blood pressure blood sugar diagnostic (FreeStyle Lite Strips) 4x daily blood-glucose meter (FreeStyle Lite Meter kit) As directed blood-glucose meter (FreeStyle Lite Meter kit) As directed blood-glucose meter,continuous (FreeStyle Oren 3 [place]) As directed blood-glucose sensor (FreeStyle Oren 3 Sensor device) As directed change every 14 days clopidogrel 75 mg PO DAILY imipramine HCl 10 mg PO BEDTIME 30 days incontinence pad, liner, disp As directed-use up to 4 per day insulin glargine (Lantus Solostar U-100 Insulin) 12 units (0.12 mL) subcut BEDTIME 30 days lancets (FreeStyle Lancets) 4x daily levothyroxine 125 mcg PO DAILY 30 days [id number] 24,000-76,000 -120,000 unit (Creon) 1 cap PO BID 30 days metformin ER 1,000 mg PO BID 30 days metoprolol succinate ER 50 mg PO DAILY 30 days mycophenolate mofetil 1,000 mg PO TID@0800,1300,1900 oxybutynin chloride ER 15 mg PO DAILY pen needle, diabetic (BD Ultra-Fine Marilee Pen Needle) As directed once daily pyridostigmine bromide ER 180 mg PO 0800,1300,1900,2000 ramipril 20 mg (2 x 10 mg) PO DAILY rosuvastatin 40 mg PO DAILY 90 days [shower bench without back As directed] simethicone 180 mg PO QID 30 days HPI Comments Details: 68-year-old female with complex past medical issues including hypertension, hyperlipidemia, myasthenia gravis and CVA. She had CVA while she was in [place] in October 2020. She has myasthenia gravis and she is an active smoker but trying to quit. She is stable from myasthenia point of view. Her blood pressure is elevated. she is saying her sugar is also difficult to control. Her last visit she complains about nighttime snoring and daytime sleepiness and she was referred for sleep study which was normal. Today she is here for follow-up. She is complaining of cramping in her abdomen and nausea. She had 3 episodes of bloody stools yesterday. She is saying that she also noticed some blood in her urine. Difficult to say whether this is GI or blood loss but she is having a lot of cramping in her abdomen. This has continued into today. She said she had peptic ulcer disease approximately 10 years ago. 10/12/23: She returns for follow-up. It appears she underwent right femoral to below knee popliteal artery bypass on 09/01/[address] Padilla. She is saying that she has been doing well. She is smoking 1 cigarette per day. She is currently taking Plavix only. It appears she was given Xarelto but this was discontinued. She said she had some bleeding from her nose. Blood pressure is elevated. She is taking ramipril 10 mg daily and metoprolol succinate 25 mg daily. 01/20/24: She is here for follow-up. Her blood pressure is elevated. She continues to smoke 1 cigarette when she is under stress. She is taking medications regularly. She said she was following with neurologist at [facility] for myasthenia gravis and was periodically getting plasma exchange. For the last 5-6 months she has not seen anyone because her dianna rologist has left the practice. She is saying she has been feeling weak and there is some drooping of her right eyelid too. [facility] Medical History Anxiety and depression Diabetes mellitus, with long-term current use of insulin Urinary, incontinence, stress female Wheezing Vitamin B12 deficiency Occlusion of stent of peripheral artery Personal history of nicotine dependence Chronic low back pain History of CVA (cerebrovascular accident) (~10/2020) History of kidney stones Tubular adenoma of colon COVID-19 vaccine series declined Colitis without complication Ureteral stone with hydronephrosis Myasthenia gravis Pernicious anemia Myasthenia gravis Urge urinary incontinence Microalbuminuria Vitamin D deficiency Hypothyroidism Multinodular thyroid HTN (hypertension) Surgical History History of surgery History of amputation of toe Hx of blood clots Status post biopsy of thyroid gland (~2021) History of colonoscopy History of esophagogastroduodenoscopy (EGD) History of bilateral cataract extraction (~2019) History of parathyroidectomy History of lithotripsy (~2013) History of hernia repair History of hysterectomy (~1984) Family History Father Lung cancer Mother Asthma Diabetes HTN (hypertension) Heart attack Sister FH: mental illness Leukemia Mental health disorder Social History Household Members: None Housing: Apartment Alcohol intake: current Alcohol intake frequency: does not drink Patient Tobacco Use Status: Former Tobacco user Tobacco use type: Cigarette Years Smoked: 45 +/- e-Cigarette/Vaping Use: Never Used Advance Directives Date on File: 03/03/22 service: No Current occupational status: disabled Cognitive needs: No Hearing needs: No Vision needs: No Review of Systems Const Denies chills, Denies fatigue, Denies fever(s), Denies frequent falls, Denies weakness, Denies weight gain and Denies weight loss ENT Denies dizziness Card Reports chest pain, Denies leg edema, Denies lightheadedness, Denies palpitations, Reports dyspnea and Reports dyspnea on exertion Resp Denies cough, Reports dyspnea and Reports dyspnea on exertion GI Denies hematochezia Musc Denies abnormal gait, Denies muscle weakness, Denies numbness, Denies radiating pain into limb and Denies tingling Neuro Denies abnormal gait, Denies dizziness, Denies frequent falls, Denies numbness, Denies tingling and Denies weakness Endo Denies fatigue and Denies palpitations Physical Exam Vital Signs: Last Vital Signs Pulse 84 01/20/24 12:59 BP 140/72 H 01/20/24 12:59 BMI result Body Mass Index 25.7 GENERAL APPEARANCE: in no acute distress, well developed, well nourished. Right eyelid drooping. HEART: no murmurs, regular rate and rhythm, S1, S2 normal. LUNGS: clear to auscultation bilaterally. ABDOMEN: normal, bowel sounds present, soft, nontender, nondistended. EXTREMITIES: no clubbing, cyanosis, or edema. PERIPHERAL PULSES: equal. NEUROLOGIC: AAO x 3. PSYCH: mood/affect full range. Office Procedures EKG Details: Sinus rhythm 84 beats per minute, possible left atrial enlargement QTC 446 milliseconds. [id number], Complete Assessment & Plan Assessment & Plan (1) HTN (hypertension): Code(s): I10 - Essential (primary) hypertension Category: Medical Qualifiers: Hypertension type: unspecified Qualified Code(s): I10 - Essential (primary) hypertension (2) PAD (peripheral artery disease): Comment: 12/04/2021 - left SFA atherectomy and stent 01/01/2022 - left leg diagnostic angiogram Code(s): I73.9 - Peripheral vascular disease, unspecified Category: Medical Plan [age] year female who is here for follow-up. She has known history of hypertension and peripheral vascular disease. She is status post right fem-pop bypass at [facility]. She is currently taking Plavix 75 mg daily. Blood pressure is elevated and I am adding chlorthalidone. I have advised her to stop smoking completely. She has myasthenia gravis and was periodically getting plasma exchanges. She has been feeling weak and has some drooping of the right eyelid. I have advised her to call neurology office at [facility] to be seen soon. It appears her previous neurologist has left the practice. Thank you for allowing me to participate in the care of your patient. Please feel free to contact me if you have any questions. Medications: New chlorthalidone 25 mg PO DAILY 60 tabs 3RF Coding Level of Care Code Est Pt Level 4 (29602) Diagnoses Hypertension, unspecified type I10 Hypertension type: unspecified PAD (peripheral artery disease) I73.9 CPT Codes EKG - CPT: 56410-[id number], Complete ([id number])
== END 2024-01-20 13:26 | disposition home or self-care (01) ==
PROVIDERS: PCP Internal Medicine; Visit Provider Internal Medicine Cardiovascular Disease
DX: I10 Essential (primary) hypertension (principal); I73.9 Peripheral vascular disease, unspecified
CPT/HCPCS: 93010; 99214

== ENCOUNTER → 2024-01-20 12:22 | Outpatient (BNVA) | payer OTHER, SELFPAY | PROVIDERS: PCP Internal Medicine; Visit Provider Internal Medicine Cardiovascular Disease | DX: I73.9 Peripheral vascular disease, unspecified (principal); I10 Essential (primary) hypertension | CPT/HCPCS: 93005; 99212 ==

== ENCOUNTER 2024-01-22 09:50 | Outpatient (REF) | payer OTHER, SELFPAY ==
--- NOTE | ~2024-01-22 | US_ITS ---
EXAMINATION: US ABDOMEN LIMITED CLINICAL INFORMATION: Periumbilical pain. Evaluate for hernia. COMPARISON: CT abdomen angio August 31, 2023. CT abdomen and pelvis October 25, 2021. Ultrasound renal April 30, 2020. Ultrasound abdomen August 02, 2018. TECHNIQUE: Real-time imaging of the area indicated by patient, umbilical area. Today's examination is limited due to patient body habitus and peristalsing bowel. FINDINGS: There appears to be a periumbilical hernia. Fascial defect is suspected to measure approximately 6 cm. There is suspicion for herniation of bowel. US/US abdomen limited IMPRESSION: Periumbilical hernia is suspected, however, imaging was significantly limited due to patient body habitus. Further evaluation recommended with CT abdomen/pelvis. Electronically signed by: Sancho Parham MD 02/13/2024 09:39 AM EDT
== END 2024-01-22 09:51 | disposition home or self-care (01) ==
LOC: HO.HMGCX 09:50
PROVIDERS: PCP Internal Medicine; Visit Provider Nurse Practitioner
DX: R10.33 Periumbilical pain (principal)
CPT/HCPCS: 76705

== ENCOUNTER 2024-02-13 10:56 | Outpatient (REF) | payer OTHER, SELFPAY ==
[2024-02-13 13:12] LABS: Albumin Level 4.1 g/dL (3.5-5.0); Calcium 9.8 mg/dL (8.4-10.2)
[2024-02-13 13:21] LABS: Parathyroid Hormone Intact 95.5 pg/mL (8.7-77.1)
[2024-02-13 13:36] LABS: Free T4 (Free Thyroxine) 1.37 ng/dL (0.71-1.85); Vitamin D 25-OH Total 45.9 ng/mL (>30)
== END 2024-02-13 10:57 | disposition home or self-care (01) ==
LOC: HO.HMGCLDS 10:56
PROVIDERS: PCP Internal Medicine; Visit Provider Nurse Practitioner Adult Health
DX: E21.0 Primary hyperparathyroidism (principal); E89.0 Postprocedural hypothyroidism
CPT/HCPCS: 36415; 82040; 82306; 82310; 83970; 84439; 84443

== ENCOUNTER 2024-02-16 11:52 | Outpatient (AMB) | payer OTHER, SELFPAY ==
--- NOTE | 2024-02-16 11:57 | A.OFFVIS_ITS ---
Vital Signs 02/16/24 11:58 Height 5 ft 2 in Weight 138 lb 3.677 oz BMI 25.3 BP 162/74 H Blood Pressure Location Rt brachial Position Sitting Pulse 83 Pulse Source Pulse Oximeter Intake Visit Reasons: Type2 DM/MNG/Hypercalcemia/CONFIRMED Intake Note: Patient present today to follow up on Type 2 Diabetes Mellitus. Last seen by Dr. Hope 10/27/2023. Patient receives DME supplies through: Pharmacy Last Diabetic Eye exam: 03/2023 Patient has an upcoming appt next month. 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 She is seen in F/U for diabetes care only. Previous notation on Toxic MNG and hypercalcemia have been carried through in note. She did have an adjustment in levothyroxine to 125mcg most recent tsh is now too suppressed 1) Toxic MNG: She moved here from [facility] and established care with new PCP. PCP ordered thyroid ultrasound 03/15/18. This revealed multiple thyroid nodules, 4 nodules within the R lobe and 4 nodules within the L lobe. She was subsequently referred to Endocrinology. 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 The 3 nodules biopsied were the R lower pole 1.6 cm nodule (now 1.8 cm) - benign; R upper pole 1.1 cm nodule - benign; L upper 2.2 cm nodule - benign. She was found to be hyperthyroid with suppressed TSH, with uptake and scan consistent with a toxic MNG. She did meet with Dr. Becerra to discuss todal thyroidectomy, but this was thought to be a risky procedure as she requires preoperative plasmapheresis due to her myasthenia gravis. Discussion was held with Dr. Becerra with decision to proceed with I131 ablation with FNA of any concerning appearing nodules. She underwent I131 ablation with 11.56 millicurries 05/02/19. She is currently on levothyroxine 112 mcg PO daily. . She underwent FNA biopsy 07/04/2021 of her RMP 1.3 cm thyroid nodule, with benign cytology. At that time there were no nodules visualized in the L lobe of the thyroid. The L lobe was diffusely heterogenous with multiple pseudonodules, but no true nodues. Last ultrasound 2022 showed decrease size of nodules. She had reported some difficulty swallowing and has a f/u appt with GI. 2) Hypercalcemia: She also reports a history of primary hyperparathyroidism. She had 2 parathyroid glands removed in 2013 in [facility]. She has had recurrent kidney stones. She does not take Vitamin D. She has had no fractures. She does report a history of Osteoporosis, but this does appear to have resolved as her recent BMD was normal as of 08/27/18. She did have labs that are concerning for recurrence of hyperparathyroidism with elevated PTH. Calcium remained normal, but on repeat labs 02/25/19 this was again elevated to 10.3. She was on HCTZ 25 mg PO daily HCTZ was stopped and she had labs repeated 4 weeks later. Labs 06/24/2019 were WNL with PTH 46, Calcium 9.9.. 3 She remained off HCTZ but then developed obstructive nephrolithiasis which she was hospitalized for in [facility] recently. She was resumed on HCTZ 25 mg PO daily, and remains off this now. Repeat calcium was 10.3 BP has been elevated since stopping HCTZ. 3) T2DM: Initially diagnosed with T2DM in 2006 during a routine screening exam. Currently using Metformin 1000 mg PO BID Lantus 12 units daily has not picked up prescription and has been out of this She takes metformin but does report bloating and diarrhea. Prior RX: She was started on Jardiance 25 mg PO daily, but did not take this due to her being concerned about vaginal yeast infection. She tried and failed Januvia 100 mg PO daily. . She was on Trulicity but this was discontinued due to pancreatitis. She gets bloating and some diarrhea with metformin, Freestyle edilma sensor 3 average glucose: [To 14 ] 14 day continuous glucose sensor report reviewed Glucose Management indicator 8.4 % TIme in ranges: Twenty-five % very high (above 250) 45 % high (181-250) 30 % in range (70-180] 0 % low (69-55) 0 % very low (below 54) 25.6 Glucose variability [ ] (target <36%) Interpretation of CGMS [ ] No recent reports of symptoms of hypoglycemia. Will treat these symptoms with candy. Does not check sugar after. Family history of T2DM in her mother. last eye exam: this is scheduled , no known retinopathy. Has neuropathy. not painful she was seen by podiatry yesterday. 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 Has nephropathy, on Ramipril 10 mg PO daily. UAC 243.0 07/15/2022. Following with Dr. Mcneill from Nephrology. Has HLD, on Rosuvastatin 40 mg PO daily which she started in November 2019. LDL 276 07/15/2022. She reports poor compliance. No history of CAD, but did have CVA in the past. Diet: eats a lot of sweets Weight: Stable Has had diabetes education. She continues to work with RD. CT Neck 06/05/2020: FINDINGS: No cervical adenopathy is identified. The parotid glands are homogeneous in attenuation. The submandibular glands are normal. No contour abnormality or pathologic enhancement is seen within the oral cavity or pharyngeal mucosal space. The laryngeal structures are normal. The parapharyngeal fat is preserved. The carotid sheath vasculature opacify normally. No extra mucosal soft tissue mass or fluid collection is seen. No retropharyngeal fluid collection is seen. The thyroid gland is normal. The superior mediastinum is unremarkable. The lung apices are clear. There is a small polyp or retention cyst floor of left maxillary sinus. Rest of the paranasal sinuses are well expanded and clear. There is small cysts seen in both lung apices. The temporomandibular joints are normal. No periapical disease is identified. No osseous abnormalities are seen. The imaged portions of the brain parenchyma are unremarkable. Thyroid US 11/09/2020: 06/23/2022 Right Thyroid Lobe: 2.9 x 1.2 x 1.2 cm, volume 2.2 mL. Previously 3.6 x 1.4 x 1.2 cm, volume 3.2 mL. Parenchyma: The gland echotexture is heterogeneous. Thyroid vascularity is normal. Left Thyroid Lobe: 3.2 x 1.3 x 1.0 cm, volume 2.2 mL. Previously 3.6 x 1.7 x 1.5 cm, volume 4.8 mL. Parenchyma: The gland echotexture is heterogeneous. Thyroid vascularity is normal. Isthmus: 0.2 cm in maximum AP dimension. Previously 0.2 cm. Estimated total number of nodules greater than or equal to 1 cm: 1. Transformer Inspector nodules are described as follows: 1.? Location: Right superior. ?? ? Size: 0.26 x 0.18 x 0.26 cm, volume 0.005 mL. ?? ? Previously: 0.4 x 0.2 x 0.2 cm, volume 0.01 mL. ?? ? Nodule characteristics: ?? ? Composition: Solid (2). ?? ? Echogenicity: Hyperechoic (1). ?? ? Shape: Not taller than wide (0). ?? ? Margins: Smooth (0). ?? ? Echogenic Foci: Macrocalcifications (1). ? ACR TI-RADS total points: 4 Previous: 4 ?? ? ACR TI-RADS category: 4 Previous: 4 ? Significant change in size (>/= 20% in 2 dimensions and minimal increase of 2 mm or 50% or greater increase in volume): None. ?? ? Change in features: None. ?? ? Change in ACR TI-RADS risk category: No change. 2.? Location: Right mid. ?? ? Size: 0.42 x 0.38 x 0.41 cm, volume 0.034 mL. ?? ? Previously: 0.5 x 0.5 x 0.4 cm, volume 0.05 mL. ?? ? Nodule characteristics: ?? ? Composition: Solid (2). ?? ? Echogenicity: Isoechoic (1). ?? ? Shape: Not taller than wide (0). ?? ? Margins: Smooth (0). ?? ? Echogenic Foci: None (0). ? ACR TI-RADS total points: 3 Previous: 6 ?? ? ACR TI-RADS category: 3 Previous: 4 ? Significant change in size (>/= 20% in 2 dimensions and minimal increase of 2 mm or 50% or greater increase in volume): None. ?? ? Change in features: None. ?? ? Change in ACR TI-RADS risk category: Improved. 3.? Location: Right inferior. ?? ? Size: 1.2 x 0.9 x 0.9 cm, volume 0.39 mL. ?? ? Previously: 1.3 x 1.0 x 0.9 cm, volume 0.6 mL. ?? ? Nodule characteristics: ?? ? Composition: Solid (2). ?? ? Echogenicity: Isoechoic (1). ?? ? Shape: Not taller than wide (0). ?? ? Margins: Smooth (0). ?? ? Echogenic Foci: Peripheral calcifications (2).? ACR TI-RADS total points: 5 Previous: 11 ?? ? ACR TI-RADS category: 4 Previous: 5 ? Significant change in size (>/= 20% in 2 dimensions and minimal increase of 2 mm or 50% or greater increase in volume): No change. ?? ? Change in features: No change. ?? ? Change in ACR TI-RADS risk category: Decreased. 4.? Location: Left superior. ?? ? Size: 0.5 x 0.5 x 0.4 cm, volume 0.03 mL. ?? ? Previously: 1.3 x 0.5 x 0.5 cm, volume 0.2 mL. ?? ? Nodule characteristics: ?? ? Composition: Solid (2). ?? ? Echogenicity: Hyperechoic (1). ?? ? Shape: Not taller than wide (0). ?? ? Margins: Smooth (0). ?? ? Echogenic Foci: Macrocalcifications (1). ?? ? ACR TI-RADS total points: 4 Previous: 5 ?? ? ACR TI-RADS category: 4 Previous: 4 ? Significant change in size (>/= 20% in 2 dimensions and minimal increase of 2 mm or 50% or greater increase in volume): Decreased. ?? ? Change in features: None. ?? ? Change in ACR TI-RADS risk category: Decreased. 5.? Location: Left mid. ?? ? Size: 0.7 x 0.6 x 0.3 cm, volume 0.06 mL. ?? ? Previously: 0.6 x 0.3 x 0.3 cm, volume 0.02 mL. ?? ? Nodule characteristics: ?? ? Composition: Solid (2). ?? ? Echogenicity: Hyperechoic (1). ?? ? Shape: Not taller than wide (0). ?? ? Margins: Ill-defined (0). ?? ? Echogenic Foci: Macrocalcifications (1).? ACR TI-RADS total points: 4 Previous: 4 ?? ? ACR TI-RADS category: 4 Previous: 4 ? Significant change in size (>/= 20% in 2 dimensions and minimal increase of 2 mm or 50% or greater increase in volume): No change. ?? ? Change in features: No change. ?? ? Change in ACR TI-RADS risk category: No change. NODES: No lymphadenopathy is seen in the tissue surrounding the thyroid gland. DEXA: 08/27/18 AP SPINE L1-L3 (excluding L4): The data of L1-L4 has been changed to exclude the L4 vertebral body, because degenerative changes at this level may cause overestimation of lumbar spine density. BMD 1.058 g/cm2, Z-score 0.3, T-score -0.9, normal. LEFT FEMUR, NECK: BMD 0.933 g/cm2, Z-score 0.5, T-score -0.8, normal. LEFT FEMUR, TOTAL: BMD 1.007 g/cm2, Z-score 0.9, T-score 0.0, normal. LEFT FOREARM RADIUS 33%: BMD 0.846 g/cm2, Z-score 0.8, T-score -0.3, normal. [facility] Medical History Anxiety and depression Diabetes mellitus, with long-term current use of insulin Urinary, incontinence, stress female Wheezing Vitamin B12 deficiency Occlusion of stent of peripheral artery Personal history of nicotine dependence Chronic low back pain History of CVA (cerebrovascular accident) (~10/2020) History of kidney stones Tubular adenoma of colon COVID-19 vaccine series declined Colitis without complication Ureteral stone with hydronephrosis Myasthenia gravis Pernicious anemia Myasthenia gravis Urge urinary incontinence Microalbuminuria Vitamin D deficiency Hypothyroidism Multinodular thyroid HTN (hypertension) Surgical History History of surgery History of amputation of toe Hx of blood clots Status post biopsy of thyroid gland (~2021) History of colonoscopy History of esophagogastroduodenoscopy (EGD) History of bilateral cataract extraction (~2019) History of parathyroidectomy History of lithotripsy (~2013) History of hernia repair History of hysterectomy (~1984) Family History Father Lung cancer Mother Asthma Diabetes HTN (hypertension) Heart attack Sister FH: mental illness Leukemia Mental health disorder Social History Household Members: None Housing: Apartment Alcohol intake: current Alcohol intake frequency: does not drink Patient Tobacco Use Status: Former Tobacco user Tobacco use type: Cigarette Years Smoked: 45 +/- e-Cigarette/Vaping Use: Never Used Advance Directives Date on File: 03/03/22 service: No Current occupational status: disabled Cognitive needs: No Hearing needs: No Vision needs: No Physical Exam Vital Signs: Last Vital Signs Pulse 83 02/16/24 11:58 BP 162/74 H 02/16/24 11:58 BMI result Body Mass Index 25.3 Const Other: Absence of Cushingoid features. Absence of acromegalic features. Neck exam reveals nl size thyroid about 15 gms. No thyroid nodules palpable. No carotid b ruits present. Lungs CTA. Heart S1 S2, Reg R/R. No M/R G. Skin exam reveals absence of vitiligo or acanthosis nigricans. No edema Extrem Other: . Results AMB Hemoglobin A1c AMB Hemoglobin A1c 7.5 % Last Edit by GRACE Malik on 02/16/24 12:32 Results Reviewed Results Reviewed: Laboratory Last Values Glucose (Clinic) 166 mg/dL (60-115) H 02/16/24 12:07 Hgb A1c (Clinic) 7.5 % (4.0-6.0) H 02/16/24 12:10 Laboratory Tests 01/13/24 02/13/24 02/16/24 08:23 10:59 12:10 Hgb A1c (Clinic) 7.5 H 25-OH Vitamin D Total 45.9 TSH 9.02 H Free T4 1.37 Assessment & Plan Assessment & Plan (1) Diabetes mellitus, with long-term current use of insulin: Code(s): E11.9 - Type 2 diabetes mellitus without complications; Z79.4 - terminal makeup operator (current) use of insulin Category: Medical Plan: TYpe 2 diabetic with receht download showing glucose average 200. She was a dvised to resume Lantus 12 units and continue metformin. A prior authorization was submitted were extended release as she has some GI symptoms from this this was denied an appeal letter was sent. (2) Hypothyroidism: Code(s): E03.9 - Hypothyroidism, unspecified Category: Medical Qualifiers: Hypothyroidism type: postablative Qualified Code(s): E89.0 - Postprocedural hypothyroidism Plan: she was advised to alternate doses of 112mcg and 125mcg as most recent TSH was suppressed after a change from 112 to 125mcg Orders: Orders AMB Hemoglobin A1c 02/16/24 Z13.9 - Encounter for screening, unspecified, E11.9 - Type 2 diabetes mellitus without complications, Z79.4 - terminal makeup operator (current) use of insulin Parathyroid Hormone Intact 02/16/24 E21.0 - Primary hyperparathyroidism Patient Instructions: The patient was counseled to achieve a target A1C of 7% (154 avg). Fasting blood sugars should be 90-130 in the morning and less than 180 two hours after meals. Reviewed the relationship between poor diabetic control and the developement of complications The patient was counseled to always carry a source of sugar and on the rule of 15's: Take 3 glucose tablets and repeat again in 15 minutes if blood sugar is not in normal range. Continue to repeat every 15 minutes until blood sugar is normal. 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
[2024-02-16 11:58] VITALS: BP 162/74; PULSE 83; BMI 25.3
[2024-02-16 12:12] LABS: Glucose, Whole Blood 166 mg/dL (60-115)
== END 2024-02-16 13:42 | disposition home or self-care (01) ==
PROVIDERS: PCP Internal Medicine; Visit Provider Nurse Practitioner Adult Health
DX: E11.9 Type 2 diabetes mellitus without complications (principal); Z79.4 Long term (current) use of insulin; E89.0 Postprocedural hypothyroidism
CPT/HCPCS: 99214; G2211

== ENCOUNTER → 2024-02-16 11:52 | Outpatient (BNVA) | payer OTHER, SELFPAY | PROVIDERS: PCP Internal Medicine; Visit Provider Nurse Practitioner Adult Health | DX: E11.9 Type 2 diabetes mellitus without complications (principal); E89.0 Postprocedural hypothyroidism; Z79.4 Long term (current) use of insulin | CPT/HCPCS: 82947; 83036; 99212 ==

== ENCOUNTER 2024-02-25 10:34 | Outpatient (AMB) | payer OTHER, SELFPAY ==
[2024-02-25 11:25] VITALS: BP 142/86; PULSE 89; O2SAT 98; BMI 25.4
--- NOTE | 2024-02-25 11:25 | A.OFFPC_ITS ---
Vital Signs 02/25/24 11:25 Height 5 ft 2 in Weight 139 lb BMI 25.4 BP 142/86 H Blood Pressure Location Rt brachial Position Sitting Pulse 89 Pulse Source Pulse Oximeter Pulse Oximetry (%) 98 Oxygen Delivery Method Room Air Intake Visit Reasons: 4 month follow up Intake Note: Pt is here today for her 4mo. f/u labs Allergies Penicillins [PCN] Allergy (Unknown, Verified 02/27/24 22:37) RASH gabapentin Adverse Reaction (Unknown, Verified 02/27/24 22:37) Dizziness Medication List - Last Reconciled 02/27/24 by Bernadette De Souza MD blood pressure test kit-medium As directed to monitor blood pressure blood sugar diagnostic (FreeStyle Lite Strips) 4x daily blood-glucose meter (FreeStyle Lite Meter kit) As directed blood-glucose meter (FreeStyle Lite Meter kit) As directed blood-glucose meter,continuous (FreeStyle Oren 3 Picacho) As directed blood-glucose sensor (FreeStyle Oren 3 Plus Sensor device) As directed use in place of freestyle 3 due to shortage of FS3 blood-glucose sensor (FreeStyle Oren 3 Sensor device) As directed change every 14 days chlorthalidone 25 mg PO DAILY clopidogrel 75 mg PO DAILY imipramine HCl 10 mg PO BEDTIME 30 days incontinence pad, liner, disp As directed-use up to 4 per day insulin glargine (Lantus Solostar U-100 Insulin) 12 units (0.12 mL) subcut BEDTIME 30 days lancets (FreeStyle Lancets) 4x daily levothyroxine 125 mcg PO DAILY 30 days levothyroxine 112 mcg PO DAILY 30 days txldgb-pumrzjwk-nifppcn 24,000-76,000 -120,000 unit (Creon) 1 cap PO BID 30 days metformin 1,000 mg PO BID 30 days metoprolol succinate ER 50 mg PO DAILY 30 days mycophenolate mofetil 1,000 mg PO TID@0800,1300,1900 oxybutynin chloride ER 15 mg PO DAILY pen needle, diabetic (BD Ultra-Fine Marilee Pen Needle) As directed once daily pyridostigmine bromide ER 180 mg PO 0800,1300,1900,2000 ramipril 20 mg (2 x 10 mg) PO DAILY rosuvastatin 40 mg PO DAILY 90 days [shower bench without back As directed] simethicone 180 mg PO QID 30 days Tobacco use date assessed: 02/25/24 Fall risk assessment: No Falls in past year Last assessed Fall Risk: 02/25/24 Dental Screening Dental Screen Date: 10/16/23 Did you have a dental visit in the last 12 months?: Yes Did you have a dental problem in the last 6 months where you did not have access to dental care?: No Was dental information given to patient?: Patient has dentist HPI 4 month follow up HPI Details 68 year old lady with PMHx of past medi sophia history of Myasthenia Gravis followed by Neurology at [place],, 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 She states that she has been feeling well except for noticing decreased hearing in both ears accompanied by loud ringing at times. Would like referral to an ear nose and throat for further evaluation. She also states that her neurologist is currently retired and needs a referral to a different neurologist for follow-up on her myasthenia gravis.. [facility] Medical History (Updated 02/27/24 @ 22:49 by Bernadette De Souza MD) Tinnitus Hearing loss Anxiety and depression Diabetes mellitus, with long-term current use of insulin Urinary, incontinence, stress female Wheezing Vitamin B12 deficiency Occlusion of stent of peripheral artery Personal history of nicotine dependence Chronic low back pain History of CVA (cerebrovascular accident) (~10/2020) History of kidney stones Tubular adenoma of colon COVID-19 vaccine series declined Colitis without complication Ureteral stone with hydronephrosis Myasthenia gravis Pernicious anemia Myasthenia gravis Urge urinary incontinence Microalbuminuria Vitamin D deficiency Hypothyroidism Multinodular thyroid HTN (hypertension) Surgical History History of surgery History of amputation of toe Hx of blood clots Status post biopsy of thyroid gland (~2021) History of colonoscopy History of esophagogastroduodenoscopy (EGD) History of bilateral cataract extraction (~2019) History of parathyroidectomy History of lithotripsy (~2013) History of hernia repair History of hysterectomy (~1984) Family History Father Lung cancer Mother Asthma Diabetes HTN (hypertension) Heart attack Sister FH: mental illness Leukemia Mental health disorder Social History Household Members: None Housing: Apartment Alcohol intake: current Alcohol intake frequency: does not drink Patient Tobacco Use Status: Current someday Tobacco user Tobacco use type: Cigarette Years Smoked: 45 +/- e-Cigarette/Vaping Use: Never Used Advance Directives Date on File: 03/03/22 service: No Current occupational status: disabled Cognitive needs: No Hearing needs: No Vision needs: No Questionnaire PHQ-9 Over the last 2 weeks, how often have you been bothered by any of the following problems? Depression Screening Interpretation: Positive Depression Screening Follow-up: Community Mental Health Worker F/U Depression Screening Done: Yes Source: Developed by Drs. Cristi De Luna, Bertha Robbins, Gallo Leiva and colleagues, with an educational jud from [employer]. Thrive Questionnaire Date Thrive assessed: 10/16/23 APARNA-7 AMB Questionnaire APARNA-7 Date APARNA - 7 assessed: 10/16/23 Source: Developed by Drs. Cristi De Luna, Bertha Robbins, Gallo Leiva and colleagues, with an educational jud from [employer]. Review of Systems Const Denies chills, Denies fatigue, Denies fever(s), Denies frequent falls and Denies weakness ENT Denies dizziness Card Reports chest pain, Denies leg edema, Denies lightheadedness, Denies palpitations and Reports dyspnea Resp Denies cough and Reports dyspnea GI Denies hematochezia Reports no additional complaints Musc Denies abnormal gait, Denies muscle weakness, Denies numbness, Denies radiating pain into limb and Denies tingling Skin/Breast Denies breast pain, Denies breast mass and Denies rash Neuro Denies abnormal gait, Denies dizziness, Denies frequent falls, Denies numbness, Denies tingling and Denies weakness Endo Denies fatigue and Denies palpitations Jesus/Lymph Reports no additional complaints Physical exam (Primary Care) Vital Signs: Last Vital Signs Pulse 89 02/25/24 11:25 BP 142/86 H 02/25/24 11:25 Pulse Ox 98 02/25/24 11:25 Oxygen Delivery Method Room Air 02/25/24 11:25 BMI result Body Mass Index 25.4 Tobacco/Smoking Status: Tobacco use Status Tobacco use date assessed 02/25/24 02/25/24 11:33 Patient Tobacco Use Status Current someday Tobacco 02/25/24 11:33 Tobacco use type Cigarette 02/25/24 11:33 e-Cigarette/Vaping Use Never Used 02/25/24 11:33 Depression Screening Interpretation: Positive Depression Screening Follow-up: Community Mental Health Worker F/U Thrive Assessment: Date of Thrive Assessment Date Thrive assessed 10/16/23 02/25/24 11:33 Const General: no acute distress and alert Orientation/consciousness: patient oriented x3 HENMT Face and sinus: Yes face symmetric Mouth: Normal oral and palatal mucosa present, oropharynx normal and moist mucous membranes Eyes General: appearance normal, both eyes and all related structures Neck Other: Thyroid gland nonpalpable Neck: Yes full ROM, Yes no lymphadenopathy and Yes supple Resp Effort & Inspection: normal respiratory effort and able to speak in complete sentences Cardio Other: S1-S2 present regular rate and rhythm GI Palpation (GI): Soft to palpation, nontender and no guarding Auscultation: normal bowel sounds Neuro General: patient oriented x3, moves all extremities, no focal motor deficits, CN's II-XI intact bilaterally and decrease sensation to monofilament (In both lower extremities) Extrem Other: No pedal edema noted, no gross bone deformity seen, Absent 5th digits in both feet Psych Appearance: grossly normal and well kempt Mental Status: mental status grossly normal Speech and movement: Normal speech and movement present Affect: normal affect Attitude: cooperative Thought process: Normal thought process present Results Reviewed Results Reviewed: Laboratory Tests 10/27/23 02/16/24 02/16/24 11:30 12:07 12:10 Glucose (Clinic) 166 H Hgb A1c (Clinic) 8.2 H 7.5 H Name: Magy Fitzgerald I Age/Sex: 68/F : 1955 Unit#: [id number] Attend Dr: Bernadette De Souza MD Re10/17/23 Status: DEP REF [facility] Disch: SPEC : [id number] CECI: 10/17/23 STATUS: COMP REQ : [id number] RECD: 10/17/[address]: Bernadette De Souza MD COMP: 10/17/23 ENTERED: 10/17/23 [facility] DR: ORDERED: CMP Fast, Lipid Panel, Michelle, Lip, Vitamin D 25-OH Test Result Flag Reference Sodium 143 135-145 mmol/L Potassium 3.7 3.3-5.1 mmol/L CL 107 96-108 mmol/L CO2 24 22-29 mmol/L Gap 16 12-20 BUN 15 9-16 mg/dL Creat 0.65 0.5-1.4 mg/dL EGFR > 60 NOTE: For -Citizen Of The [place] individuals, multiply the result by 1.210. Chronic Kidney Disease: Estimated GFR < 60 mL/min/1.73m2 Severe Kidney Disease: Estimated GFR < 15 mL/min/1.73m2 FBS 158 H 60-99 mg/dL A fasting glucose of 126 mg/dl or greater on more than one occasion is considered diagnostic of diabetes. CA 10.3 # H 8.4-10.2 mg/dL Total Bili 0.3 0.0-1.0 mg/dL AST (GOT) 17 5-31 U/L ALT (GPT) 14 0-31 U/L Protein, Total 7.7 6.5-8.0 g/dL Alb 4.3 3.5-5.0 g/dL Triglyceride 152 H <150 mg/dL Desirable Triglyceride: less than 150 mg/dL Borderline High Triglyceride 150-199 mg/dL High Triglyceride: 200-499 mg/dL Very High Triglyceride: greater than or equal to 5OO mg/dL Cholesterol 166 <200 mg/dL Desirable Cholesterol: less than 200 mg/dL Borderline High Cholesterol: 200-239 mg/dL High Cholesterol: greater than 239 mg/dL LDL Calculated 87 <100 mg/dL Desirable LDL: less than 100 mg/dL Near Optimal/Above Optimal LDL: 110-129 mg/dL Borderline High LDL: 130-159 mg/dL High LDL: 160-189 mg/dL Very High LDL: greater than or equal to 190 mg/dL HDL 49 >40 mg/dL Desirable HDL: greater than 40 mg/dL Note: This HDL assay may give artificially low results in patients with liver disease. Alk Phos 95 39-117 U/L Michelle 160 H 28-100 U/L Lipase 72 8-78 U/L Vit D 25-OH Tot 40.7 >30 ng/mL Health Based Reference Values* < 20 ng/mL Deficient 20-30 ng/mL Insufficient > 30 ng/mL Sufficient Assessment and Plan Assessment & Plan (1) HLD (hyperlipidemia): Code(s): E78.5 - Hyperlipidemia, unspecified Plan: Latest fasting lipids done 10/2023 showed results within normal limits. Will continue on rosuvastatin 40 mg daily (2) Myasthenia gravis: Comment: sees Neurologist [phone] Code(s): G70.00 - Myasthenia gravis without (acute) exacerbation Plan: Referred to [facility] for follow-up of her myasthenia gravis, currently asymptomatic, as previous neurology will be retiring (3) Hearing loss: Code(s): H91.90 - Unspecified hearing loss, unspecified ear Qualifiers: Hearing loss type: unspecified Laterality: bilateral Qualified Code(s ): H91.93 - Unspecified hearing loss, bilateral Plan: Referral to Dr. Carter for further evaluation of possible hearing loss (4) Tinnitus: Code(s): H93.19 - Tinnitus, unspecified ear Qualifiers: Laterality: bilateral Qualified Code(s): H93.13 - Tinnitus, bilateral Plan: Referral to Dr. Carter for further evaluation of possible hearing loss Orders: Orders Lipid Panel 02/25/24 Bernadette De Souza MD E78.5 - Hyperlipidemia, unspecified Alanine Aminotransferase 02/25/24 Bernadette De Souza MD E78.5 - Hyperlipidemia, unspecified Aspartate Amino Transferase 02/25/24 Bernadette De Souza MD E78.5 - Hyperlipidemia, unspecified Referrals Ear/Nose/Throat Referral Bernadette De Souza MD H91.90 - Unspecified hearing loss, unspecified ear, H93.19 - Tinnitus, unspecified ear Neurology Referral Bernadette De Souza MD G70.00 - Myasthenia gravis without (acute) exacerbation Medications: Discontinued levothyroxine take on Thursday, Thursday, , Thursday Discontinued Reason: Duplicate 112 mcg PO DAILY 30 caps 11RF 30 days Rebecca Best NP Coding Level of Care Code Est Pt Level 4 (40606) Complex EM visit Add On G2211 Diagnoses HLD (hyperlipidemia) E78.5 Myasthenia gravis G70.00 Bilateral hearing loss, unspecified hearing loss type H91.93 Hearing loss type: unspecified Laterality: bilateral Tinnitus of both ears H93.13 Laterality: bilateral
== END 2024-02-25 12:09 | disposition home or self-care (01) ==
PROVIDERS: PCP Internal Medicine; Visit Provider Internal Medicine
DX: E78.5 Hyperlipidemia, unspecified (principal); G70.00 Myasthenia gravis without (acute) exacerbation; H91.93 Unspecified hearing loss, bilateral; H93.13 Tinnitus, bilateral
CPT/HCPCS: 99214; G2211

== ENCOUNTER 2024-03-30 11:26 | Outpatient (AMB) | payer OTHER, SELFPAY ==
--- NOTE | 2024-03-30 11:30 | A.OFFVIS_ITS ---
Vital Signs 03/30/24 11:31 Height 5 ft 2 in Weight 139 lb 5.314 oz BMI 25.5 BP 146/70 H Blood Pressure Location Lt brachial Position Sitting Pulse 110 H Pulse Source Pulse Oximeter Intake Visit Reasons: f/u Type 2 DM/ hypothyroidism/ MNG/ hypercalcemia Intake Note: Patient presents today for Hypothyroidism, MNG, and Hypercalcemia follow up visit. [place] [employer] Former Required: No Accompanied by: Self / Same As Patient Allergies Penicillins [PCN] Allergy (Unknown, Verified 03/30/24 11:38) RASH gabapentin Adverse Reaction (Unknown, Verified 03/30/24 11:38) Dizziness Medication List - Last Reconciled 03/30/24 by Cristi Hope MD blood pressure test kit-medium As directed to monitor blood pressure blood sugar diagnostic (FreeStyle Lite Strips) 4x daily blood-glucose meter (FreeStyle Lite Meter kit) As directed blood-glucose meter (FreeStyle Lite Meter kit) As directed blood-glucose meter,continuous (FreeStyle Oren 3 [place]) As directed blood-glucose sensor (FreeStyle Oren 3 Plus Sensor device) As directed use in place of freestyle 3 due to shortage of FS3 blood-glucose sensor (FreeStyle Oren 3 Sensor device) As directed change every 14 days chlorthalidone 25 mg PO DAILY clopidogrel 75 mg PO DAILY imipramine HCl 10 mg PO BEDTIME 30 days incontinence pad, liner, disp As directed-use up to 4 per day insulin glargine (Lantus Solostar U-100 Insulin) 12 units (0.12 mL) subcut BEDTIME 30 days lancets (FreeStyle Lancets) 4x daily levothyroxine 125 mcg PO DAILY 30 days levothyroxine 112 mcg PO DAILY 30 days ziyuso-eunrqwfn-zlqjteb 24,000-76,000 -120,000 unit (Creon) 1 cap PO BID 30 days metformin 1,000 mg PO BID 30 days metoprolol succinate ER 50 mg PO DAILY 30 days mycophenolate mofetil 1,000 mg PO TID@0800,1300,1900 oxybutynin chloride ER 15 mg PO DAILY pen needle, diabetic (BD Ultra-Fine Marilee Pen Needle) As directed once daily pyridostigmine bromide ER 180 mg PO 0800,1300,1900,2000 ramipril 20 mg (2 x 10 mg) PO DAILY rosuvastatin 40 mg PO DAILY 90 days [shower bench without back As directed] simethicone 180 mg PO QID 30 days HPI Comments Details: 69 YO F with a past medical history of Myasthenia Gravis, 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 She is seen in F/U. today for multinodular goiter and postsurgical hypothyroidism 1) Toxic MNG: She moved here from [facility] and established care with new PCP. PCP ordered thyroid ultrasound 03/15/18. This revealed multiple thyroid nodules, 4 nodules within the R lobe and 4 nodules within the L lobe. She was subsequently referred to Endocrinology. Review of records from her former [employer] in [facility] reveals prior FNA biopsy 08/23/13 of 3 nodules, all benign. The 3 nodules biopsied were the R lower pole 1.6 cm nodule (now 1.8 cm) - benign; R upper pole 1.1 cm nodule - benign; L upper 2.2 cm nodule - benign. She was found to be hyperthyroid with suppressed TSH, with uptake and scan consistent with a toxic MNG. She did meet with Dr. Becerra to discuss todal thyroidectomy, but this was thought to be a risky procedure as she requires preoperative plasmapheresis due to her myasthenia gravis. Discussion was held with Dr. Becerra with decision to proceed with I131 ablation with FNA of any concerning appearing nodules. She underwent I131 ablation with 11.56 millicurries 05/02/19. She is currently on levothyroxine 112 mcg PO daily. . She underwent FNA biopsy 07/04/2021 of her RMP 1.3 cm thyroid nodule, with benign cytology. At that time there were no nodules visualized in the L lobe of the thyroid. The L lobe was diffusely heterogenous with multiple pseudonodules, but no true nodues. 2) Hypercalcemia: She also reports a history of primary hyperparathyroidism. She had 2 parathyroid glands removed in 2013 in [facility]. She has had recurrent kidney stones. She does not take Vitamin D. She has had no fractures. She does report a history of Osteoporosis, but this does appear to have resolved as her recent BMD was normal as of 08/27/18. She did have labs that are concerning for recurrence of hyperparathyroidism with elevated PTH. Calcium remained normal, but on repeat labs 02/25/19 this was again elevated to 10.3. She was on HCTZ 25 mg PO daily HCTZ was stopped and she had labs repeated 4 weeks later. Labs 06/24/2019 were WNL with PTH 46, Calcium 9.9.. 3 She remained off HCTZ but then developed obstructive nephrolithiasis which she was hospitalized for in [facility] recently. She was resumed on HCTZ 25 mg PO daily, and remains off this now. . Repeat calcium was 10.3 3) T2DM: Initially diagnosed with T2DM in 2006 during a routine screening exam. Currently using Metformin 1000 mg PO BID, Lantus 12 units daily( not taking ) She was started on Jardiance 25 mg PO daily, but did not take this due to her being concerned about vaginal yeast infection. She tried and failed Antwon via 100 mg PO daily. . She was on Trulicity but this was discontinued due to pancreatitis. However, patient still taking Trulicity 0.75 mg q.week She did not bring her meter with her today. Reports symptoms of hypoglycemia with sugar in the 80's. Will treat these symptoms with candy. Does not check sugar after. No episides of hypoglycemia Family history of T2DM in her mother. Does not have eyes checked yearly, last eye exam needs to make appt , no known retinopathy. Has neuropathy. Has nephropathy, on Ramipril 10 mg PO daily. UAC 243.0 07/15/2022. Following with Dr. Mcneill from Nephrology. Has HLD, on Rosuvastatin 40 mg PO daily which she started in November 2019. LDL 276 07/15/2022. She reports poor compliance. No history of CAD, but did have CVA in the past. Diet: eats a lot of sweets Weight: Stable Has had diabetes education. CT Neck 06/05/2020: FINDINGS: No cervical adenopathy is identified. The parotid glands are homogeneous in attenuation. The submandibular glands are normal. No contour abnormality or pathologic enhancement is seen within the oral cavity or pharyngeal mucosal space. The laryngeal structures are normal. The parapharyngeal fat is preserved. The carotid sheath vasculature opacify normally. No extra mucosal soft tissue mass or fluid collection is seen. No retropharyngeal fluid collection is seen. The thyroid gland is normal. The superior mediastinum is unremarkable. The lung apices are clear. There is a small polyp or retention cyst floor of left maxillary sinus. Rest of the paranasal sinuses are well expanded and clear. There is small cysts seen in both lung apices. The temporomandibular joints are normal. No periapical disease is identified. No osseous abnormalities are seen. The imaged portions of the brain parenchyma are unremarkable. Thyroid US 11/09/2020: 06/23/2022 Right Thyroid Lobe: 2.9 x 1.2 x 1.2 cm, volume 2.2 mL. Previously 3.6 x 1.4 x 1.2 cm, volume 3.2 mL. Parenchyma: The gland echotexture is heterogeneous. Thyroid vascularity is normal. Left Thyroid Lobe: 3.2 x 1.3 x 1.0 cm, volume 2.2 mL. Previously 3.6 x 1.7 x 1.5 cm, volume 4.8 mL. Parenchyma: The gland echotexture is heterogeneous. Thyroid vascularity is normal. Isthmus: 0.2 cm in maximum AP dimension. Previously 0.2 cm. Estimated total number of nodules greater than or equal to 1 cm: 1. Chief Steward/Stewardess nodules are described as follows: 1.? Location: Right superior. ?? ? Size: 0.26 x 0.18 x 0.26 cm, volume 0.005 mL. ?? ? Previously: 0.4 x 0.2 x 0.2 cm, volume 0.01 mL. ?? ? Nodule characteristics: ?? ? Composition: Solid (2). ?? ? Echogenicity: Hyperechoic (1). ?? ? Shape: Not taller than wide (0). ?? ? Margins: Smooth (0). ?? ? Echogenic Foci: Macrocalcifications (1). ? ACR TI-RADS total points: 4 Previous: 4 ?? ? ACR TI-RADS category: 4 Previous: 4 ? Significant change in size (>/= 20% in 2 dimensions and minimal increase of 2 mm or 50% or greater increase in volume): None. ?? ? Change in features: None. ?? ? Change in ACR TI-RADS risk category: No change. 2.? Location: Right mid. ?? ? Size: 0.42 x 0.38 x 0.41 cm, volume 0.034 mL. ?? ? Previously: 0.5 x 0.5 x 0.4 cm, volume 0.05 mL. ?? ? Nodule characteristics: ?? ? Composition: Solid (2). ?? ? Echogenicity: Isoechoic (1). ?? ? Shape: Not taller than wide (0). ?? ? Margins: Smooth (0). ?? ? Echogenic Foci: None (0). ? ACR TI-RADS total points: 3 Previous: 6 ?? ? ACR TI-RADS category: 3 Previous: 4 ? Significant change in size (>/= 20% in 2 dimensions and minimal increase of 2 mm or 50% or greater increase in volume): None. ?? ? Change in features: None. ?? ? Change in ACR TI-RADS risk category: Improved. 3.? Location: Right inferior. ?? ? Size: 1.2 x 0.9 x 0.9 cm, volume 0.39 mL. ?? ? Previously: 1.3 x 1.0 x 0.9 cm, volume 0.6 mL. ?? ? Nodule characteristics: ?? ? Composition: Solid (2). ?? ? Echogenicity: Isoechoic (1). ?? ? Shape: Not taller than wide (0). ?? ? Margins: Smooth (0). ?? ? Echogenic Foci: Peripheral calcifications (2).? ACR TI-RADS total points: 5 Previous: 11 ?? ? ACR TI-RADS category: 4 Previous: 5 ? Significant change in size (>/= 20% in 2 dimensions and minimal increase of 2 mm or 50% or greater increase in volume): No change. ?? ? Change in features: No change. ?? ? Change in ACR TI-RADS risk category: Decreased. 4.? Location: Left superior. ?? ? Size: 0.5 x 0.5 x 0.4 cm, volume 0.03 mL. ?? ? Previously: 1.3 x 0.5 x 0.5 cm, volume 0.2 mL. ?? ? Nodule characteristics: ?? ? Composition: Solid (2). ?? ? Echogenicity: Hyperechoic (1). ?? ? Shape: Not taller than wide (0). ?? ? Margins: Smooth (0). ?? ? Echogenic Foci: Macrocalcifications (1). ?? ? ACR TI-RADS total points: 4 Previous: 5 ?? ? ACR TI-RADS category: 4 Previous: 4 ? Significant change in size (>/= 20% in 2 dimensions and minimal increase of 2 mm or 50% or greater increase in volume): Decreased. ?? ? Change in features: None. ?? ? Change in ACR TI-RADS risk category: Decreased. 5.? Location: Left mid. ?? ? Size: 0.7 x 0.6 x 0.3 cm, volume 0.06 mL. ?? ? Previously: 0.6 x 0.3 x 0.3 cm, volume 0.02 mL. ?? ? Nodule characteristics: ?? ? Composition: Solid (2). ?? ? Echogenicity: Hyperechoic (1). ?? ? Shape: Not taller than wide (0). ?? ? Margins: Ill-defined (0). ?? ? Echogenic Foci: Macrocalcifications (1).? ACR TI-RADS total points: 4 Previous: 4 ?? ? ACR TI-RADS category: 4 Previous: 4 ? Significant change in size (>/= 20% in 2 dimensions and minimal increase of 2 mm or 50% or greater increase in volume): No change. ?? ? Change in features: No change. ?? ? Change in ACR TI-RADS risk category: No change. NODES: No lymphadenopathy is seen in the tissue surrounding the thyroid gland. DEXA: 08/27/18 AP SPINE L1-L3 (excluding L4): The data of L1-L4 has been changed to exclude the L4 vertebral body, because degenerative changes at this level may cause overestimation of lumbar spine density. BMD 1.058 g/cm2, Z-score 0.3, T-score -0.9, normal. LEFT FEMUR, NECK: BMD 0.933 g/cm2, Z-score 0.5, T-score -0.8, normal. LEFT FEMUR, TOTAL: BMD 1.007 g/cm2, Z-score 0.9, T-score 0.0, normal. LEFT FOREARM RADIUS 33%: BMD 0.846 g/cm2, Z-score 0.8, T-score -0.3, normal. Labs: Laboratory Tests 01/31/23 01/31/23 01/31/23 09:50 09:50 09:50 Sodium 138 Potassium 4.1 Creatinine 0.80 Estimated GFR > 60 Hemoglobin A1c % 10.1 Triglycerides 155 Cholesterol 340 LDL Cholesterol Direct 276 H HDL Cholesterol 54 Vitamin B12 466 TSH 4.84 H Free T4 Microalb/Creat Ratio 07/15/22 07/15/22 09:50 09:50 Sodium Potassium Creatinine Estimated GFR Hemoglobin A1c % Triglycerides Cholesterol LDL Cholesterol Direct HDL Cholesterol Vitamin B12 TSH Free T4 1.26 Microalb/Creat Ratio 243.0 No sx of hypothyroidism or hyperthyroidism [facility] Medical History (Updated 03/30/24 @ 11:38 by Cristi Hope MD) Hyperparathyroidism Tinnitus Hearing loss Anxiety and depression Diabetes mellitus, with long-term current use of insulin Urinary, incontinence, stress female Wheezing Vitamin B12 deficiency Occlusion of stent of peripheral artery Personal history of nicotine dependence Chronic low back pain History of CVA (cerebrovascular accident) (~10/2020) History of kidney stones Tubular adenoma of colon COVID-19 vaccine series declined Colitis without complication Ureteral stone with hydronephrosis Myasthenia gravis Pernicious anemia Myasthenia gravis Urge urinary incontinence Microalbuminuria Vitamin D deficiency Hypothyroidism Multinodular thyroid HTN (hypertension) Surgical History History of surgery History of amputation of toe Hx of blood clots Status post biopsy of thyroid gland (~2021) History of colonoscopy History of esophagogastroduodenoscopy (EGD) History of bilateral cataract extraction (~2019) History of parathyroidectomy History of lithotripsy (~2013) History of hernia repair History of hysterectomy (~1984) Family History Father Lung cancer Mother Asthma Diabetes HTN (hypertension) Heart attack Sister FH: mental illness Leukemia Mental health disorder Social History Household Members: None Housing: Apartment Alcohol intake: current Alcohol intake frequency: does not drink Patient Tobacco Use Status: Current someday Tobacco user Tobacco use type: Cigarette Years Smoked: 45 +/- e-Cigarette/Vaping Use: Never Used Advance Directives Date on File: 03/03/22 service: No Current occupational status: disabled Cognitive needs: No Hearing needs: No Vision needs: No Assessment & Plan Assessment & Plan (1) Multinodular thyroid: Code(s): E04.2 - Nontoxic multinodular goiter Category: Medical Plan: Status post iodine 131 ablation with residual subcentimeter nodules present ultrasound and some pseudo nodules. Currently replaced on levothyroxine 112 mcg alternating with 125. Appears clinically euthyroid Will check TSH and free T4 and adjust levothyroxine accordingly. We will also recheck thyroid ultrasound (2) Hypothyroidism: Code(s): E03.9 - Hypothyroidism, unspecified Category: Medical Qualifiers: Hypothyroidism type: postablative Qualified Code(s): E89.0 - Postprocedural hypothyroidism Plan: See above plan for multinodular goiter (3) Hyperparathyroidism: Code(s): E21.3 - Hyperparathyroidism, unspecified Category: Medical Plan: See plan for hypercalcemia (4) Hypercalcemia: Code(s): E83.52 - Hypercalcemia Category: Medical Plan: Status post parathyroidectomy with last calcium being high normal. PTH was slightly elevated. Differential includes spurious elevation of PTH versus secondary hyperparathyroidism versus failed parathyroid surgery We will check PTH that was performed at [facility] ([facility]). If PTH remains elevated with normal 25 hydroxy vitamin-D, will repeat 24 hour urine for calcium and creatinine to see if calcium absorption is decreased leading to secondary hyperparathyroidism Orders: Orders Free T4 (Free Thyroxine) Today E89.0 - Postprocedural hypothyroidism Thyroid Stimulating Hormone Today E89.0 - Postprocedural hypothyroidism US thyroid Today E04.2 - Nontoxic multinodular goiter Coding Level of Care Code Est Pt Level 3 (16183) Diagnoses Multinodular thyroid E04.2 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 Hyperparathyroidism E21.3 Hypercalcemia E83.52
[2024-03-30 11:31] VITALS: BP 146/70; PULSE 110; BMI 25.5
== END 2024-03-30 11:55 | disposition home or self-care (01) ==
PROVIDERS: PCP Internal Medicine; Visit Provider Internal Medicine Endocrinology, Diabetes & Metabolism
DX: E04.2 Nontoxic multinodular goiter (principal); E89.0 Postprocedural hypothyroidism; E21.3 Hyperparathyroidism, unspecified; E83.52 Hypercalcemia
CPT/HCPCS: 99213

== ENCOUNTER 2024-04-01 14:25 | Outpatient (REF) | payer OTHER, SELFPAY ==
--- NOTE | ~2024-04-01 | CT_ITS ---
EXAMINATION: CT LOW-DOSE SCREENING CHEST WITHOUT CONTRAST CLINICAL INFORMATION: Personal history of nicotine dependence. Current smoker at 1 pack per day for 45 years. COMPARISON: CT lung screening 11/18/2022. TECHNIQUE: Multidetector volumetric CT imaging of the chest is performed on a Siemens SOMATOM Definition scanner without contrast using low dose technique. Additional 2D coronal and sagittal reformatted images and axial 3D maximum intensity projection (MIP) images are generated on the CT workstation. This CT examination was performed using dose optimization techniques as appropriate, variously including the following: *Automated exposure control *Adjustment of mA and/or kV according to patient size (this includes techniques or standardized protocols for targeted exams where dose is matched to indication/reason for exam; i.e. extremities or head) *Use of iterative reconstruction technique TOTAL EXAM DLP: 36 mGy-cm. CTDIvol: 1.21 mGy. FINDINGS: PULMONARY NODULES: Multiple scattered calcified granulomas are present. Stable 4.5 mm maximal dimension left lower lobe pulmonary nodule (5:246 compare prior 5:278). There is no new, increasing sized or suspicious nodule seen. LUNGS: Lungs bilaterally symmetrically expanded. There is mild emphysema and moderate bronchial thickening without bronchiectasis. No effusion or pneumothorax. Central airways patent. MEDIASTINUM: No mediastinal, hilar or axillary adenopathy or free fluid collection. CORONARY ARTERY CALCIFICATION: Marked. THYROID GLAND: Unremarkable to the extent seen. CARDIOVASCULAR STRUCTURES: Aortic and heart size normal. No pericardial effusion. CHEST WALL/AXILLA: Unremarkable. UPPER ABDOMEN: Included portions of the solid organs in the upper abdomen unremarkable on noncontrast imaging. Status post cholecystectomy. OSSEOUS STRUCTURES: No suspicious focal findings. CT/CT lung screening IMPRESSION: 1. Stable 4.5 mm left lower lobe pulmonary nodule. No findings concerning for malignancy. 2. Mild emphysema and moderate bronchial thickening. 3. Marked coronary artery calcifications. ASSESSMENT: 1. Lung-RADS Category 2: Benign appearance or behavior of nodules. N/A 2. Lung-RADS Category S: Negative. There are no clinically significant or potentially clinically significant findings not related to the lungs requiring urgent additional evaluation. RECOMMENDATION: Continued routine annual low-dose CT lung screening in 1 year is recommended. An order for CT CHEST LOW DOSE CANCER SCREENING ([id number]) can be placed. Electronically signed by: Clinton Reddy MD 05/19/2024 03:41 PM KATJA SHAH
== END 2024-04-01 14:26 | disposition home or self-care (01) ==
LOC: HO.CT 14:25
PROVIDERS: PCP Internal Medicine; Visit Provider Physician Assistant Medical
DX: Z12.2 Encounter for screening for malignant neoplasm of respiratory organs (principal); Z87.891 Personal history of nicotine dependence
CPT/HCPCS: 71271

== ENCOUNTER 2024-04-06 12:51 | Outpatient (REF) | payer OTHER, SELFPAY | END 2024-04-06 12:52 | disposition home or self-care (01) | LOC: HO.HMGCX 12:51 | PROVIDERS: PCP Internal Medicine; Visit Provider Internal Medicine Endocrinology, Diabetes & Metabolism | DX: E04.2 Nontoxic multinodular goiter (principal) | CPT/HCPCS: 76536 ==

== ENCOUNTER 2024-04-07 10:25 | Outpatient (AMB) | payer OTHER, SELFPAY ==
[2024-04-07 10:53] VITALS: BMI 25.7
--- NOTE | 2024-04-07 10:53 | A.OFFVIS_ITS ---
VS Expanded 04/07/24 10:53 Height 5 ft 2 in Weight 140 lb 6.951 oz BMI 25.7 Intake Visit Reasons: DM/CONFIRMED Allergies Penicillins [PCN] Allergy (Unknown, Verified 03/30/24 11:38) RASH gabapentin Adverse Reaction (Unknown, Verified 03/30/24 11:38) Dizziness Nutrition Presentation Details: Pt presents for MNT f/u for T2DM Pt is requesting refills on test strips and lancets- message sent to provider Pt reports eatingwell, working on having 3 meals/day and mindful with portions of starches food frequency fruits: 1/d dairy: yogurt 3x/wk, milk iif made in meals vegetables: 3 x/wk fish:not including starches: 12-20 /d fried foods: 1x/wk pastries: 1-2 x/wk coffee 4-5 cups/day black or with milk physical activity: reports walking daily 10-12 min/day BS Monitoring Most Recent Diabetes Results: Calcium 9.8 mg/dL (8.4-10.2) 02/13/24 Albumin 4.1 g/dL (3.5-5.0) 02/13/24 [facility] Medical History (Updated 03/30/24 @ 11:38 by Cristi Hope MD) Hyperparathyroidism Tinnitus Hearing loss Anxiety and depression Diabetes mellitus, with long-term current use of insulin Urinary, incontinence, stress female Wheezing Vitamin B12 deficiency Occlusion of stent of peripheral artery Personal history of nicotine dependence Chronic low back pain History of CVA (cerebrovascular accident) (~10/2020) History of kidney stones Tubular adenoma of colon COVID-19 vaccine series declined Colitis without complication Ureteral stone with hydronephrosis Myasthenia gravis Pernicious anemia Myasthenia gravis Urge urinary incontinence Microalbuminuria Vitamin D deficiency Hypothyroidism Multinodular thyroid HTN (hypertension) Surgical History History of surgery History of amputation of toe Hx of blood clots Status post biopsy of thyroid gland (~2021) History of colonoscopy History of esophagogastroduodenoscopy (EGD) History of bilateral cataract extraction (~2019) History of parathyroidectomy History of lithotripsy (~2013) History of hernia repair History of hysterectomy (~1984) Family History Father Lung cancer Mother Asthma Diabetes HTN (hypertension) Heart attack Sister FH: mental illness Leukemia Mental health disorder Social History Household Members: None Housing: Apartment Alcohol intake: current Alcohol intake frequency: does not drink Patient Tobacco Use Status: Current someday Tobacco user Tobacco use type: Cigarette Years Smoked: 45 +/- e-Cigarette/Vaping Use: Never Used Advance Directives Date on File: 03/03/22 service: No Current occupational status: disabled Cognitive needs: No Hearing needs: No Vision needs: No Assessment & Plan Assessment & Plan (1) Diabetes mellitus, with long-term current use of insulin: Code(s): E11.9 - Type 2 diabetes mellitus without complications; Z79.4 - skilled nursing (current) use of insulin Category: Medical Plan: Wt: 66 Kg ( 07/23/23), 64kg (08/2023), 62 kg (09/2023), 64 kg (01/2024), 04/07 Est kcal needs as per MSJ: 1600 (40% carb, 30% protein/fat) Est fluid needs as per 25 ml/d: 1700 Est prot per day as per 1 g/kg bw: 66 Recommend fiber intake : 8-10 g per day and gradually increase to 25-28 g per day for women and 35-38 g for men or as tolerated Recommend sodium intake per day : less than 2000 mg Educated patient on: ( R = reviewed V = verbalizes understanding N/R = needs review N/A = not applicable * Food sources of carbohydrate, adequate serving sizes and its role in various health conditions: R * Differences between complex carbohydrates a simple carbohydrates, role of fiber in diet: R * Lean protein sources of foods: R * Differences between types of fats and role in diet (mono on saturated fat fatty acids, saturated fatty acids, trans fats): R * Food sources of sodium in salt and healthy modifications for heart health in kidney health: R * Vitamins and minerals: R * Healthy plate method concept: R, v * Physical activity: Benefits a precaution: R, v * Hypoglycemia protocol (rule of 15): R V * Dietary prevention of Hyperglycemia: R V Plan Continue following healhty plate method work on reducing caffeine gradually to 2 c vs 4 c/day Medications: Discontinued blood sugar diagnostic (FreeStyle Lite Strips) Discontinued Reason: Duplicate 4x daily 100 ea 11RF e11.9 E55.9 - Vitamin D deficiency, unspecified Coding Level of Care Code Nutr Indiv Subseq (49082) Diagnoses Diabetes mellitus, with long-term current use of insulin E11.9; Z79.4 Time Spent (min) 30
== END 2024-04-07 11:17 | disposition home or self-care (01) ==
PROVIDERS: PCP Internal Medicine; Visit Provider Dietitian, Registered
DX: E11.9 Type 2 diabetes mellitus without complications (principal); Z79.4 Long term (current) use of insulin

== ENCOUNTER → 2024-04-07 10:25 | Outpatient (BNVA) | payer OTHER, SELFPAY | PROVIDERS: PCP Internal Medicine; Visit Provider Dietitian, Registered | DX: E11.9 Type 2 diabetes mellitus without complications (principal); Z71.3 Dietary counseling and surveillance | CPT/HCPCS: 97803 ==

== ENCOUNTER 2024-04-27 11:09 | Outpatient (REF) | payer OTHER, SELFPAY ==
--- NOTE | ~2024-04-27 | MM_ITS ---
EXAMINATION: MM SCREENING DIGITAL BREAST TOMOSYNTHESIS, BILATERAL CLINICAL INFORMATION: Screening. Asymptomatic. COMPARISON: Mammography: Comparison is made with available priors TECHNIQUE: Digital breast mammography with tomosynthesis is performed in both the craniocaudal and mediolateral oblique views along with computer-aided detection (CAD). FINDINGS: There are scattered areas of fibroglandular density (ACR BI-RADS breast composition Category b). There are no significant masses, abnormal calcifications, or other abnormalities. MM/MM tomosynthesis screening BI IMPRESSION: No mammographic evidence of malignancy. ASSESSMENT: BI-RADS BI-RADS 1 - Negative RECOMMENDATION: Routine annual mammography screening. 1 year F/U This examination should not preclude the clinical evaluation of a suspicious palpable abnormality. This patient's information was entered into a reminder system with a target due date for their next mammogram. Electronically signed by: Wendy Fry DO 05/05/2024 06:20 PM [facility]
== END 2024-04-27 11:10 | disposition home or self-care (01) ==
LOC: HO.MAMMO 11:09
PROVIDERS: PCP Internal Medicine; Visit Provider Internal Medicine
DX: Z12.31 Encounter for screening mammogram for malignant neoplasm of breast (principal)
CPT/HCPCS: 77063; 77067; 99211

== ENCOUNTER 2024-04-27 11:58 | Outpatient (AMB) | payer OTHER, SELFPAY ==
--- NOTE | 2024-04-27 14:00 | MHC.AMDMED ---
Intake Intake Visit Reasons: DM-confirmed Director Of Assessment Required: No Accompanied by: Self / Same As Patient Allergies Penicillins [PCN] Allergy (Unknown, Verified 03/30/24 11:38) RASH gabapentin Adverse Reaction (Unknown, Verified 03/30/24 11:38) Dizziness HPI Comprehensive Diabetes Asmnt Most Recent Diabetes Results: Hemoglobin A1c 7.1 % 11/26/18 Microalb/Creat Ratio 288.6 ug/mg cr (<30) H 06/20/23 Cholesterol 171 mg/dL (<200) 01/13/24 HDL Cholesterol 48 mg/dL (>40) 01/13/24 Triglycerides 95 mg/dL (<150) 01/13/24 Creatinine 0.65 mg/dL (0.5-1.4) 10/17/23 Blood Urea Nitrogen 15 mg/dL (9-16) 10/17/23 Sodium 143 mmol/L (135-145) 10/17/23 Potassium 3.7 mmol/L (3.3-5.1) 10/17/23 Chloride 107 mmol/L (96-108) 10/17/23 Carbon Dioxide 24 mmol/L (22-29) 10/17/23 Calcium 9.8 mg/dL (8.4-10.2) 02/13/24 AST 17 U/L (5-31) 10/17/23 ALT 14 U/L (0-31) 10/17/23 Total Protein 7.7 g/dL (6.5-8.0) 10/17/23 Albumin 4.1 g/dL (3.5-5.0) 02/13/24 [facility]LY [facility] Medical History (Updated 03/30/24 @ 11:38 by Cristi Hope MD) Hyperparathyroidism Tinnitus Hearing loss Anxiety and depression Diabetes mellitus, with long-term current use of insulin Urinary, incontinence, stress female Wheezing Vitamin B12 deficiency Occlusion of stent of peripheral artery Personal history of nicotine dependence Chronic low back pain History of CVA (cerebrovascular accident) (~10/2020) History of kidney stones Tubular adenoma of colon COVID-19 vaccine series declined Colitis without complication Ureteral stone with hydronephrosis Myasthenia gravis Pernicious anemia Myasthenia gravis Urge urinary incontinence Microalbuminuria Vitamin D deficiency Hypothyroidism Multinodular thyroid HTN (hypertension) Surgical History History of surgery History of amputation of toe Hx of blood clots Status post biopsy of thyroid gland (~2021) History of colonoscopy History of esophagogastroduodenoscopy (EGD) History of bilateral cataract extraction (~2019) History of parathyroidectomy History of lithotripsy (~2013) History of hernia repair History of hysterectomy (~1984) Family History Father Lung cancer Mother Asthma Diabetes HTN (hypertension) Heart attack Sister FH: mental illness Leukemia Mental health disorder Social History Household Members: None Housing: Apartment Alcohol intake: current Alcohol intake frequency: does not drink Patient Tobacco Use Status: Current someday Tobacco user Tobacco use type: Cigarette Years Smoked: 45 +/- e-Cigarette/Vaping Use: Never Used Advance Directives Date on File: 03/03/22 service: No Current occupational status: disabled Cognitive needs: No Hearing needs: No Vision needs: No Assessment & Plan Assessment & Plan (1) Diabetes mellitus, with long-term current use of insulin: Code(s): E11.9 - Type 2 diabetes mellitus without complications; Z79.4 - skilled nursing (current) use of insulin Plan: Learning objectives: The patient met all learning objectives and was able to verbalize understanding and provide teach back of education topics discussed . The patient was provided with the opportunity to ask questions and all questions were answered. Patient Assessment Assess patient education level/literacy/barriers, patient reports she can take written information in either [place]ib[place]ian or Croatian Patient questions/concerns, patient's last A1c on 02/16/2024 7.5%, although patient reports that [facility] did A1c on 04/25/2024 it was 7.9% Patient has not been able to obtain Oren sensors from pharmacy. Called pharmacy today patient has approval for Oren 3+ sensors. Patient reports she will parts picker sensors tonight. Reports she has not been testing glucose consistently with glucose meter, tests only when experiencing symptoms of hypoglycemia Patient reports that she has been experiencing sweating this approximately 3 times a week overnight, sometimes in the a.m. wakes up with glucose in high 60s Patient is currently taking Lantus 12 units daily Metformin 1000 mg b.i.d. Reviewed with patient how to treat hypoglycemia with rule of 15s, recommended to patient she keep glucose tabs by her bed so if she wakes up with symptoms of hypoglycemia she does not have to walk to the kitchen. Suggested to patient to reduce Lantus to 10 units daily, to see if this alleviates episodes of overnight and morning hypoglycemia The patient was provided with verbal and written education on the following topics as outlined below. Blood glucose monitoring When/how often to test Target blood sugar ranges Patient is currently waiting on PA to be approved for Oren 3+ sensors Patient did not bring meter to today's visit Introduction to Nutrition Importance of healthy diet in managing DM Diet is personalized to individual preference Review patient?s regular diet/food preferences Who prepares meals/does food shopping/ Dining out?/ Barriers? How diet effects glucose Eating 3 balanced meals a day with small, healthy snacks between meals Review food groups Carbohydrates: What is a carbohydrate/Which food/food groups are considered carbohydrates Effect of carbohydrates on blood glucose Portion sizes Reading food labels Basic carb counting (if applicable per nursing assessment) Plate method Meal planning Recommendations: Follow plate method, consistent carbs and read nutritional labels. Smart Goal: Patient will treat hypoglycemia with rule of 15s Educational Materials: The patient was provided with the following written educational materials: Planning Healthy Meals Handout Patient Response to instructions: Comprehension of Instructions: Fair Readiness to make changes: Contemplation How confident they feel about making changes: Positive Portions of this note were created using voice recognition software, please excuse any words or phrases that may have been misinterpreted. Patient Instructions: Contact health educator if hypoglycemia continues to persist Follow-up with health educator in 2 months Include regular daily activity. ADA recommends 30 minutes of exercise 5 days a week. Weight loss talk to PCP or Quality Assurance Qa Lab Technician before starting new plan. Test blood sugar as directed; Fasting and 2hpp largest meal. Watch trends in results. Utilize results and to assess how food, physical activity and medications affect blood sugar results. Bring glucometer or CGM to next visit. Be knowledgeable about diabetes medication, its action, side effects, efficacy, toxicity, prescribed dosage, appropriate timing and frequency of administration, effect of missed and delayed doses and instructions for storage, travel and safety. Problem solving techniques to monitor hypo/hyperglycemia episodes and treatments. Reduce risk reduction behaviors, smoking cessation, regular eye, foot and dental examinations. Incluir actividad diaria regular. ADA recomienda 30 minutos de ejercicio 5 d?as a la semana. P?rdida de peso, hable con el PCP o el cardi?logo antes de comenzar un nuevo plan. Mida el nivel de az?car en la senait seg?n las indicaciones; Ayuno y comida m?s raz de 2hpp. Observe las tendencias en los resultados. Utilice los resultados y eval?e c?mo los alimentos, la actividad f?grace y los medicamentos afectan los resultados de az?car en la senait. Lleve el gluc?metro o CGM a la pr?xima visita. Conocer los medicamentos para la diabetes, lieberman acci?n, los efectos secundarios, la eficacia, la toxicidad, la dosis prescrita, el momento y la frecuencia de administraci?n apropiados, el efecto de las dosis olvidadas y retrasadas y las instrucciones de almacenamiento, viaje y seguridad. T?cnicas de resoluci?n de problemas para el seguimiento de episodios de hipo/hiperglucemia y tratamientos. Reducir los comportamientos de reducci?n de riesgos, dejar de fumar, ex?menes regulares de ojos, pies y dentales. Coding Level of Care Code Est Pt Level 1 (24564) Diagnoses Diabetes mellitus, with long-term current use of insulin E11.9; Z79.4
== END 2024-04-27 14:17 | disposition home or self-care (01) ==
PROVIDERS: PCP Internal Medicine; Visit Provider Registered Nurse Diabetes Educator
DX: E11.9 Type 2 diabetes mellitus without complications (principal); Z79.4 Long term (current) use of insulin

== ENCOUNTER → 2024-04-27 12:00 | Outpatient (BNV) | payer OTHER, SELFPAY | PROVIDERS: PCP Internal Medicine; Visit Provider Internal Medicine | DX: Z12.31 Encounter for screening mammogram for malignant neoplasm of breast (principal) | CPT/HCPCS: 77063; 77067 ==

== ENCOUNTER 2024-04-28 12:01 | Outpatient (AMB) | payer OTHER, SELFPAY ==
--- NOTE | 2024-04-28 06:06 | A.OFFVIS_ITS ---
Vital Signs 04/28/24 12:04 Height 5 ft 2 in Weight 138 lb 14.259 oz BMI 25.4 BP 138/70 Blood Pressure Location Rt brachial Position Sitting Pulse 100 Pulse Source Pulse Oximeter Intake Visit Reasons: DM/MNG/Hypercalcemia/LVM Intake Note: Patient present today to follow up on Type 2 Diabetes Mellitus. Last seen by Dr. Hope 10/27/2023. Patient receives DME supplies through: Pharmacy Last Diabetic Eye exam: 03/2023 Patient has an upcoming appt next month. 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 She is seen in F/U for diabetes care only, She was recently seen by Dr. Hope for thyroid and hyperparathyroidism. A1C 7.5% 02/16/24. Initially diagnosed with T2DM in 2006 during a routine screening exam. Currently using Metformin 1000 mg PO BID Lantus 10 units daily Prior RX: She was started on Jardiance 25 mg PO daily, but did not take this due to her being concerned about vaginal yeast infection. She tried and failed Januvia 100 mg PO daily. . She was on Trulicity but this was discontinued due to pancreatitis. She gets bloating and some diarrhea with metformin, Freestyle edilma sensor 3 average glucose: [ ] 14 day continuous glucose sensor report reviewed Glucose Management indicator [ ] % Was off waiting for approval but now will be able to diamond picker at pharmacy No recent reports of symptoms of hypoglycemia. Will treat these symptoms with candy. None since Lantus dose was ordered Family history of T2DM in her mother. last eye exam: this is scheduled , no known retinopathy. Has neuropathy. not painful she is seen by podiatry. 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 Has nephropathy, on Ramipril 10 mg PO daily. UAC 243.0 07/15/2022. Following with Dr. Mcneill from Nephrology. Has HLD, on Rosuvastatin 40 mg PO daily which she started in November 2019. LDL 276 07/15/2022. She reports poor compliance. No history of CAD, but did have CVA in the past. Diet: eats a lot of sweets but is working on Weight: Stable Has had diabetes education. She continues to work with RD. COLE Medical History (Updated 03/30/24 @ 11:38 by Cristi Hope MD) Hyperparathyroidism Tinnitus Hearing loss Anxiety and depression Diabetes mellitus, with long-term current use of insulin Urinary, incontinence, stress female Wheezing Vitamin B12 deficiency Occlusion of stent of peripheral artery Personal history of nicotine dependence Chronic low back pain History of CVA (cerebrovascular accident) (~10/2020) History of kidney stones Tubular adenoma of colon COVID-19 vaccine series declined Colitis without complication Ureteral stone with hydronephrosis Myasthenia gravis Pernicious anemia Myasthenia gravis Urge urinary incontinence Microalbuminuria Vitamin D deficiency Hypothyroidism Multinodular thyroid HTN (hypertension) Surgical History History of surgery History of amputation of toe Hx of blood clots Status post biopsy of thyroid gland (~2021) History of colonoscopy History of esophagogastroduodenoscopy (EGD) History of bilateral cataract extraction (~2019) History of parathyroidectomy History of lithotripsy (~2013) History of hernia repair History of hysterectomy (~1984) Family History Father Lung cancer Mother Asthma Diabetes HTN (hypertension) Heart attack Sister FH: mental illness Leukemia Mental health disorder Social History Household Members: None Housing: Apartment Alcohol intake: current Alcohol intake frequency: does not drink Patient Tobacco Use Status: Current someday Tobacco user Tobacco use type: Cigarette Years Smoked: 45 +/- e-Cigarette/Vaping Use: Never Used Advance Directives Date on File: 03/03/22 service: No Current occupational status: disabled Cognitive needs: No Hearing needs: No Vision needs: No Physical Exam Vital Signs: Last Vital Signs Pulse 100 04/28/24 12:04 BP 138/70 04/28/24 12:04 BMI result Body Mass Index 25.4 Const Other: Absence of Cushingoid features. Absence of acromegalic features. Neck exam reveals nl size thyroid about 15 gms. No thyroid nodules palpable. No carotid bruits present. Lungs CTA. Heart S1 S2, Reg R/R. No M/R G. Skin exam reveals absence of vitiligo or acanthosis nigricans. No edema Visual exam of foot performed. No ulcerations or open lesions. No inter digit maceration or fissuring. No onychomycosis, no callouses. Sensation intact to m onofilament exam. Vibratory sensation is normal with 128 Hz tuning fork. Results Reviewed Results Reviewed: Laboratory Last Values Glucose (Clinic) 311 mg/dL (60-115) H 04/28/24 12:07 Assessment & Plan Assessment & Plan (1) Diabetes mellitus, with long-term current use of insulin: Code(s): E11.9 - Type 2 diabetes mellitus without complications; Z79.4 - continuous churn buttermaker (current) use of insulin Category: Medical Plan: 69-year-old type 2 diabetic with nephropathy and neuropathy with most recent A1c 7.5% on 02/17/24. Continue new current dosing of medication. Follow up 4 months and was Jayla BEAR next month She is followed by Dr. Hope for MNG and hyperparathyroidism and has been seen recently. The patient had an opportunity to ask questions regarding treatment plan. The patient expressed understanding and agreement with the above treatment plan. The patient is aware they should contact our office by phone for worsening glucose readings or for any low blood sugars which may warrant a change in diabetes medication. Compliance is encouraged with medications and any followup testing/consults which may have been ordered. Patient Instructions: The patient was counseled to achieve a target A1C of 7% (154 avg). Fasting blood sugars should be 90-130 in the morning and less than 180 two hours after meals. Reviewed the relationship between poor diabetic control and the development of complications. The patient was counseled to always carry a source of sugar and on the rule of 15's: Take 3 glucose tablets and repeat again in 15 minutes if blood sugar is not in normal range. Continue to repeat every 15 minutes until blood sugar is normal. Check your feet daily looking for any signs of infection, ulceration and seek medical attention if this occurs. Break in shoes gradually and do not wear o pen-toed shoes or walk barefooted. Coding Level of Care Code Est Pt Level 4 (12655) Complex EM visit Add On G2211 Diagnoses Diabetes mellitus, with long-term current use of insulin E11.9; Z79.4 Time Spent (min) 35 Comment Time spent reviewing labs/provider notes, face to face, chart doc
[2024-04-28 12:04] VITALS: BP 138/70; PULSE 100; BMI 25.4
[2024-04-28 12:18] LABS: Glucose, Whole Blood 311 mg/dL (60-115)
== END 2024-04-28 12:33 | disposition home or self-care (01) ==
PROVIDERS: PCP Internal Medicine; Visit Provider Nurse Practitioner Adult Health
DX: E11.9 Type 2 diabetes mellitus without complications (principal); Z79.4 Long term (current) use of insulin
CPT/HCPCS: 99214; G2211

== ENCOUNTER → 2024-04-28 12:01 | Outpatient (BNVA) | payer OTHER, SELFPAY | PROVIDERS: PCP Internal Medicine; Visit Provider Nurse Practitioner Adult Health | DX: E21.3 Hyperparathyroidism, unspecified (principal); E11.9 Type 2 diabetes mellitus without complications; Z79.4 Long term (current) use of insulin | CPT/HCPCS: 82947; 99212 ==

== ENCOUNTER 2024-05-02 12:29 | Outpatient (AMB) | payer OTHER, SELFPAY ==
[2024-05-02 13:14] VITALS: BP 132/64; PULSE 94; BMI 25.5
--- NOTE | 2024-05-02 13:14 | A.OFFVIS_ITS ---
Vital Signs 05/02/24 13:14 Height 5 ft 2 in Weight 139 lb 5.314 oz BMI 25.5 BP 132/64 Blood Pressure Location Lt brachial Position Sitting Pulse 94 Pulse Source Pulse Oximeter Intake Visit Reasons: 3 mth f/up Intake Note: 3 mth f/up [employer] Required: No Accompanied by: Self / Same As Patient Allergies Penicillins [PCN] Allergy (Unknown, Verified 04/28/24 12:06) RASH gabapentin Adverse Reaction (Unknown, Verified 04/28/24 12:06) Dizziness Medication List - Last Reconciled 05/02/24 by Duke Izaguirre MD blood pressure test kit-medium As directed to monitor blood pressure blood sugar diagnostic (FreeStyle Lite Strips) qid blood-glucose meter (FreeStyle Lite Meter kit) As directed blood-glucose meter (FreeStyle Lite Meter kit) As directed blood-glucose meter,continuous (FreeStyle Oren 3 [place]et) As directed blood-glucose sensor (FreeStyle Oren 3 Plus Sensor device) As directed use in place of freestyle 3 due to shortage of FS3 chlorthalidone 25 mg PO DAILY clopidogrel 75 mg PO DAILY imipramine HCl 10 mg PO BEDTIME incontinence pad, liner, disp As directed-use up to 4 per day insulin glargine (Lantus Solostar U-100 Insulin) 12 units (0.12 mL) subcut BEDTIME 30 days lancets (FreeStyle Lancets) 4x daily levothyroxine 125 mcg PO DAILY 30 days levothyroxine 112 mcg PO DAILY 30 days gikftf-jvyfjjts-uhzzplm 24,000-76,000 -120,000 unit (Creon) 1 cap PO BID metformin 1,000 mg PO BID 30 days metoprolol succinate ER 50 mg PO DAILY 30 days mycophenolate mofetil 1,000 mg PO TID@0800,1300,1900 oxybutynin chloride ER 15 mg PO DAILY pen needle, diabetic (BD Ultra-Fine Marilee Pen Needle) As directed once daily pyridostigmine bromide ER 180 mg PO 0800,1300,1900,2000 ramipril 20 mg (2 x 10 mg) PO DAILY rosuvastatin 40 mg PO DAILY 90 days [shower bench without back As directed] simethicone 180 mg PO QID 30 days HPI Comments Details: 69-year-old female with complex past medical issues including hypertension, hyperlipidemia, myasthenia gravis and CVA. She had CVA while she was in [place] in October 2020. She has myasthenia gravis and she is an active smoker but trying to quit. She is stable from myasthenia point of view. Her blood pressure is elevated. she is saying her sugar is also difficult to control. Her last visit she complains about nighttime snoring and daytime sleepiness and she was referred for sleep study which was normal. Today she is here for follow-up. She is complaining of cramping in her abdomen and nausea. She had 3 episodes of bloody stools yesterday. She is saying that she also noticed some blood in her urine. Difficult to say whether this is GI or blood loss but she is having a lot of cramping in her abdomen. This has continued into today. She said she had peptic ulcer disease approximately 10 years ago. 10/12/23: She returns for follow-up. It appears she underwent right femoral to below knee popliteal artery bypass on 09/01/[address] Padilla. She is saying that she has been doing well. She is smoking 1 cigarette per day. She is currently taking Plavix only. It appears she was given Xarelto but this was discontinued. She said she had some bleeding from her nose. Blood pressure is elevated. She is taking ramipril 10 mg daily and metoprolol succinate 25 mg daily. 01/20/24: She is here for follow-up. Her blood pressure is elevated. She continues to smoke 1 cigarette when she is under stress. She is taking medications regularly. She said she was following with neurologist at [facility] for myasthenia gravis and was periodically getting plasma exchange. For the last 5-6 months she has not seen anyone because her neurologist has left the practice. She is saying she has been feeling weak and there is some drooping of her right eyelid too. 05/02/2024: She is here for follow-up. Blood pressure in the office is 132/64. No chest pain or shortness of breath. She is following with Neurology for myasthenia gravis she continues to smoke. [facility] Medical History (Updated 03/30/24 @ 11:38 by Cristi Hope MD) Hyperparathyroidism Tinnitus Hearing loss Anxiety and depression Diabetes mellitus, with long-term current use of insulin Urinary, incontinence, stress female Wheezing Vitamin B12 deficiency Occlusion of stent of peripheral artery Personal history of nicotine dependence Chronic low back pain History of CVA (cerebrovascular accident) (~10/2020) History of kidney stones Tubular adenoma of colon COVID-19 vaccine series declined Colitis without complication Ureteral stone with hydronephrosis Myasthenia gravis Pernicious anemia Myasthenia gravis Urge urinary incontinence Microalbuminuria Vitamin D deficiency Hypothyroidism Multinodular thyroid HTN (hypertension) Surgical History (Reviewed 05/02/24 @ 13:17 by Promise Jones [facility]) History of surgery History of amputation of toe Hx of blood clots Status post biopsy of thyroid gland (~2021) History of colonoscopy History of esophagogastroduodenoscopy (EGD) History of bilateral cataract extraction (~2019) History of parathyroidectomy History of lithotripsy (~2013) History of hernia repair History of hysterectomy (~1984) Family History Father Lung cancer Mother Asthma Diabetes HTN (hypertension) Heart attack Sister FH: mental illness Leukemia Mental health disorder Social History Household Members: None Housing: Apartment Alcohol intake: current Alcohol intake frequency: does not drink Patient Tobacco Use Status: Current someday Tobacco user Tobacco use type: Cigarette Years Smoked: 45 +/- e-Cigarette/Vaping Use: Never Used Advance Directives Date on File: 03/03/22 service: No Current occupational status: disabled Cognitive needs: No Hearing needs: No Vision needs: No Review of Systems Const Denies chills, Denies fatigue, Denies fever(s), Denies frequent falls, Denies weakness, Denies weight gain and Denies weight loss ENT Denies dizziness Card Denies chest pain, Denies leg edema, Denies lightheadedness, Denies palpitations, Denies dyspnea and Denies dyspnea on exertion Resp Denies cough, Denies dyspnea and Denies dyspnea on exertion GI Denies hematochezia Musc Denies abnormal gait, Denies muscle weakness, Denies numbness, Denies radiating pain into limb and Denies tingling Neuro Denies abnormal gait, Denies dizziness, Denies frequent falls, Denies numbness, Denies tingling and Denies weakness Endo Denies fatigue and Denies palpitations Physical Exam Vital Signs: Last Vital Signs Pulse 94 05/02/24 13:14 BP 132/64 05/02/24 13:14 BMI result Body Mass Index 25.5 GENERAL APPEARANCE: in no acute distress. HEART: no murmurs, regular rate and rhythm, S1, S2 normal. LUNGS: clear to auscultation bilaterally. ABDOMEN: normal, bowel sounds present, soft, nontender, nondistended. EXTREMITIES: no clubbing, cyanosis, or edema. PERIPHERAL PULSES: equal. NEUROLOGIC: AAO x 3. PSYCH: mood/affect full range. Assessment & Plan Assessment & Plan (1) HTN (hypertension): Code(s): I10 - Essential (primary) hypertension Category: Medical Qualifiers: Hypertension type: unspecified Qualified Code(s): I10 - Essential (primary) hypertension (2) PAD (peripheral artery disease): Comment: 12/04/2021 - left SFA atherectomy and stent 01/01/2022 - left leg diagnostic angiogram Code(s): I73.9 - Peripheral vascular disease, unspecified Category: Medical Plan 69-year-old female who is here for follow-up. She has known history of hypertension and peripheral vascular disease. She is status post right fem-pop bypass at [facility]. She is currently taking Plavix 75 mg daily. Blood pressure is better controlled. I have advised her to stop smoking completely. She has myasthenia gravis and is following with Neurology. Thank you for allowing me to participate in the care of your patient. Please feel free to contact me if you have any questions. Coding Level of Care Code Est Pt Level 4 (22558) Diagnoses Hypertension, unspecified type I10 Hypertension type: unspecified PAD (peripheral artery disease) I73.9
== END 2024-05-02 13:42 | disposition home or self-care (01) ==
PROVIDERS: PCP Internal Medicine; Visit Provider Internal Medicine Cardiovascular Disease
DX: I10 Essential (primary) hypertension (principal); I73.9 Peripheral vascular disease, unspecified
CPT/HCPCS: 99214

== ENCOUNTER → 2024-05-02 12:29 | Outpatient (BNVA) | payer OTHER, SELFPAY | PROVIDERS: PCP Internal Medicine; Visit Provider Internal Medicine Cardiovascular Disease | DX: I10 Essential (primary) hypertension (principal); I73.9 Peripheral vascular disease, unspecified; E78.5 Hyperlipidemia, unspecified; F17.210 Nicotine dependence, cigarettes, uncomplicated; Z86.73 Personal history of transient ischemic attack (TIA), and cerebral infarction without residual deficits | CPT/HCPCS: 99212 ==

== ENCOUNTER 2024-05-31 08:24 | Outpatient (REF) | payer OTHER, SELFPAY ==
[2024-05-31] MEDS: Barium Sulfate Oral (Mocha) 450 ML ORAL.SUSP PO ×2 (10:53→10:54)
[2024-05-31] MEDS: iohexoL 350 MG/ML 100 ML INFUS..BTL IV (10:53)
[2024-05-31 13:50] LABS: Creatinine POC 0.9 mg/dL (0.5-1.4); GFR POC > 60
== END 2024-05-31 08:25 | disposition home or self-care (01) ==
LOC: HO.CT 08:24
PROVIDERS: PCP Internal Medicine; Visit Provider Nurse Practitioner
DX: R10.33 Periumbilical pain (principal)
CPT/HCPCS: 74177; 82565; Q9967

== ENCOUNTER → 2024-05-31 08:24 | Outpatient (BNV) | payer OTHER, SELFPAY | PROVIDERS: PCP Internal Medicine; Visit Provider Radiology Diagnostic Radiology | DX: R10.33 Periumbilical pain (principal) | CPT/HCPCS: 74177 ==

== ENCOUNTER 2024-09-05 13:06 | Outpatient (AMB) | payer OTHER, SELFPAY ==
--- NOTE | 2024-09-05 13:09 | MHC.OFFVIS ---
Vital Signs 09/05/24 13:13 Height 5 ft 2 in Weight 134 lb 7.712 oz BMI 24.6 BP 140/62 H Blood Pressure Location Lt brachial Position Sitting Pulse 95 Pulse Source Pulse Oximeter Intake Visit Reasons: 4m follow up Intake Note: 4 mth f/up Music Publicist Required: No Accompanied by: Employer Allergies Penicillins [PCN] Allergy (Unknown, Verified 04/28/24 12:06) RASH gabapentin Adverse Reaction (Unknown, Verified 04/28/24 12:06) Dizziness Medication List - Last Reconciled 09/05/24 by Duke Izaguirre MD amlodipine 5 mg PO BID apixaban 5 mg PO BID aspirin 81 mg PO DAILY atorvastatin 40 mg PO DAILY [bed rail As directed NS] blood pressure test kit-medium As directed to monitor blood pressure blood sugar diagnostic (FreeStyle Lite Strips) qid blood-glucose meter (FreeStyle Lite Meter kit) As directed blood-glucose meter (FreeStyle Lite Meter kit) As directed blood-glucose meter,continuous (FreeStyle Oren 3 [place]) As directed blood-glucose sensor (FreeStyle Oren 3 Plus Sensor device) As directed use in place of freestyle 3 due to shortage of FS3 chlorthalidone 25 mg PO DAILY dulaglutide (Trulicity) 1.5 mg subcut QWEEK hydrochlorothiazide 25 mg PO DAILY imipramine HCl 10 mg PO BEDTIME incontinence pad, liner, disp As directed-use up to 4 per day insulin glargine (Lantus Solostar U-100 Insulin) 12 units (0.12 mL) subcut BEDTIME 30 days lancets (FreeStyle Lancets) 4x daily levothyroxine 137 mcg PO DAILY lidocaine 5% 1 patch topical DAILY PRN aotako-eiqolhqu-dzdwamy 24,000-76,000 -120,000 unit (Creon) 1 cap PO BID metformin 1,000 mg PO BID 30 days metoprolol succinate ER 25 mg PO DAILY mycophenolate mofetil 1,000 mg PO TID@0800,1300,1900 nut.tx.gluc.intol,lac-free,soy (Glucerna oral liquid) 1 ea PO TID oxybutynin chloride ER 15 mg PO DAILY pen needle, diabetic (BD Ultra-Fine Marilee Pen Needle) As directed once daily pyridostigmine bromide ER 180 mg PO 0800,1300,1900,1999 ramipril 20 mg (2 x 10 mg) PO DAILY rosuvastatin 40 mg PO DAILY 90 days [shower bench without back As directed] simethicone 180 mg PO QID 30 days HPI Comments Details: 69-year-old female with complex past medical issues including hypertension, hyperlipidemia, myasthenia gravis and CVA. She had CVA while she was in [place] in October 2020. She has myasthenia gravis and she is an active smoker but trying to quit. She is stable from myasthenia point of view. Her blood pressure is elevated. she is saying her sugar is also difficult to control. Her last visit she complains about nighttime snoring and daytime sleepiness and she was referred for sleep study which was normal. Today she is here for follow-up. She is complaining of cramping in her abdomen and nausea. She had 3 episodes of bloody stools yesterday. She is saying that she also noticed some blood in her urine. Difficult to say whether this is GI or blood loss but she is having a lot of cramping in her abdomen. This has continued into today. She said she had peptic ulcer disease approximately 10 years ago. 10/12/23: She returns for follow-up. It appears she underwent right femoral to below knee popliteal artery bypass on 09/01/[address] Padilla. She is saying that she has been doing well. She is smoking 1 cigarette per day. She is currently taking Plavix only. It appears she was given Xarelto but this was discontinued. She said she had some bleeding from her nose. Blood pressure is elevated. She is taking ramipril 10 mg daily and metoprolol succinate 25 mg daily. 01/20/24: She is here for follow-up. Her blood pressure is elevated. She continues to smoke 1 cigarette when she is under stress. She is taking medications regularly. She said she was following with neurologist at [facility] for myasthenia gravis and was periodically getting plasma exchange. For the last 5-6 months she has not seen anyone because her neurologist has left the practice. She is saying she has been feeling weak and there is some drooping of her right eyelid too. 05/02/2024: She is here for follow-up. Blood pressure in the office is 132/64. No chest pain or shortness of breath. She is following with Neurology for myasthenia gravis she continues to smoke. 09/05/2024: She is here for follow-up. In the last few months a lot happened to her. She was in [place] where she had leg pain and went to [facility]. Apparently she had surgery done there. She said the left catheters in there which appears to be they gave her tPA for thrombus. She said she came back and a week later she was in [facility] with leg issues and underwent surgery again. We will get records. She is now recovering and walking with a walker. She has stopped smoking. She is saying she is on Eliquis and baby aspirin now and Plavix has been stopped. [facility] Medical History (Updated 09/05/24 @ 13:49 by Duke Izaguirre MD) Hyperparathyroidism Tinnitus Hearing loss Anxiety and depression Diabetes mellitus, with long-term current use of insulin Urinary, incontinence, stress female Wheezing Vitamin B12 deficiency Occlusion of stent of peripheral artery Personal history of nicotine dependence Chronic low back pain History of CVA (cerebrovascular accident) (~10/2020) History of kidney stones Tubular adenoma of colon COVID-19 vaccine series declined Colitis without complication Ureteral stone with hydronephrosis Myasthenia gravis Pernicious anemia Myasthenia gravis Urge urinary incontinence Microalbuminuria Vitamin D deficiency Hypothyroidism Multinodular thyroid HTN (hypertension) Surgical History History of surgery History of amputation of toe Hx of blood clots Status post biopsy of thyroid gland (~2021) History of colonoscopy History of esophagogastroduodenoscopy (EGD) History of bilateral cataract extraction (~2019) History of parathyroidectomy History of lithotripsy (~2013) History of hernia repair History of hysterectomy (~1984) Family History Father Lung cancer Mother Asthma Diabetes HTN (hypertension) Heart attack Sister FH: mental illness Leukemia Mental health disorder Social History Household Members: None Housing: Apartment Alcohol intake: current Alcohol intake frequency: does not drink Patient Tobacco Use Status: Current someday Tobacco user Tobacco use type: Cigarette Years Smoked: 45 +/- e-Cigarette/Vaping Use: Never Used Advance Directives Date on File: 03/03/22 service: No Current occupational status: disabled Cognitive needs: No Hearing needs: No Vision needs: No Review of Systems Const Denies chills, Denies fatigue, Denies fever(s), Denies frequent falls, Denies weakness, Denies weight gain and Denies weight loss ENT Denies dizziness Card Denies chest pain, Denies leg edema, Denies lightheadedness, Denies palpitations, Denies dyspnea and Denies dyspnea on exertion Resp Denies cough, Denies dyspnea and Denies dyspnea on exertion GI Denies hematochezia Musc Denies abnormal gait, Denies muscle weakness, Denies numbness, Denies radiating pain into limb and Denies tingling Neuro Denies abnormal gait, Denies dizziness, Denies frequent falls, Denies numbness, Denies tingling and Denies weakness Endo Denies fatigue and Denies palpitations Physical Exam Vital Signs: Last Vital Signs Pulse 95 09/05/24 13:13 BP 140/62 H 09/05/24 13:13 BMI result Body Mass Index 24.6 GENERAL APPEARANCE: in no acute distress. HEART: no murmurs, regular rate and rhythm, S1, S2 normal. LUNGS: clear to auscultation bilaterally. ABDOMEN: normal, bowel sounds present, soft, nontender, nondistended. EXTREMITIES: no clubbing, cyanosis, or edema. PERIPHERAL PULSES: equal. NEUROLOGIC: AAO x 3. PSYCH: mood/affect full range. Assessment & Plan Assessment & Plan (1) HTN (hypertension): Code(s): I10 - Essential (primary) hypertension Category: Medical Qualifiers: Hypertension type: unspecified Qualified Code(s): I10 - Essential (primary) hypertension (2) PAD (peripheral artery disease): Code(s): I73.9 - Peripheral vascular disease, unspecified Category: Medical (3) HLD (hyperlipidemia): Code(s): E78.5 - Hyperlipidemia, unspecified Category: Medical Plan Very pleasant 69-year-old female who is here for follow-up. She has known history of peripheral vascular disease with previous right fem pop bypass. Recent admission at [facility] with leg pain and from her description she had thrombectomy done but we will get the records. After that she got admitted to [facility] a week later and had vascular surgery done again. We will get records from both hospitals. She is saying she is taking aspirin and Eliquis currently which will continue. No bleeding concerns currently and she should continue both medicines for now. She is off the Plavix now. Follow-up in 6 months. Thank you for allowing me to participate in the care of your patient. Please feel free to contact me if you have any questions. Medications: Changed From metoprolol succinate ER 50 mg PO DAILY 30 tabs 11RF 30 days I10 - Essential (primary) hypertension To metoprolol succinate ER 25 mg PO DAILY I10 - Essential (primary) hypertension Coding Level of Care Code Est Pt Level 4 (64527) Diagnoses Hypertension, unspecified type I10 Hypertension type: unspecified PAD (peripheral artery disease) I73.9 HLD (hyperlipidemia) E78.5
[2024-09-05 13:13] VITALS: BP 140/62; PULSE 95; BMI 24.6
== END 2024-09-05 13:45 | disposition home or self-care (01) ==
PROVIDERS: PCP Internal Medicine; Visit Provider Internal Medicine Cardiovascular Disease
DX: I10 Essential (primary) hypertension (principal); I73.9 Peripheral vascular disease, unspecified; E78.5 Hyperlipidemia, unspecified
CPT/HCPCS: 99214

== ENCOUNTER → 2024-09-05 13:06 | Outpatient (BNVA) | payer OTHER, SELFPAY | PROVIDERS: PCP Internal Medicine; Visit Provider Internal Medicine Cardiovascular Disease | DX: I10 Essential (primary) hypertension (principal); I73.9 Peripheral vascular disease, unspecified; F17.210 Nicotine dependence, cigarettes, uncomplicated; E78.5 Hyperlipidemia, unspecified | CPT/HCPCS: 99212 ==

== ENCOUNTER 2024-09-15 10:38 | Outpatient (AMB) | payer OTHER, SELFPAY ==
--- NOTE | 2024-09-15 07:38 | A.OFFVIS_ITS ---
Vital Signs 09/15/24 10:42 Height 5 ft 2 in Weight 134 lb 7.712 oz BMI 24.6 BP 182/86 H Blood Pressure Location Rt brachial Position Sitting Pulse 92 Pulse Source Pulse Oximeter Pulse Oximetry (%) 99 Oxygen Delivery Method Room Air Intake Visit Reasons: DM Intake Note: Patient present today to follow up on Type 2 Diabetes Mellitus. 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 She is seen in F/U for diabetes care only, She was last seen by Dr. Hope for thyroid and hyperparathyroidism. March 2024. A1C 09/15/24 Initially diagnosed with T2DM in 2006 during a routine screening exam. She is having Currently using Metformin 1000 mg PO BID Lantus 10 units daily Freestyle edilma 69sensor 3 average glucose: [ ] 14 day continuous glucose sensor report reviewed Glucose Management indicator [ ] % Time CGM active [ ] % TIme in ranges: [ ] % very high (above 250) [ ] % high (181-250) [ ] % in range (70-180] [ ] % low (69-55) [ ] % very low (below 54) [ ] Glucose variability [ ] (target <36%) Interpretation of CGMS [ ] Prior RX: She was started on Jardiance 25 mg PO daily, but did not take this due to her being concerned about vaginal yeast infection. She tried and failed Januvia 100 mg PO daily. . She was on Trulicity but this was discontinued due to pancreatitis. She gets bloating and some diarrhea with metformin, Freestyle edilma sensor 3 average glucose: [ ] 14 day continuous glucose sensor report reviewed Glucose Management indicator [ ] % Was off waiting for approval but now will be able to shredder picker at pharmacy No recent reports of symptoms of hypoglycemia. Will treat these symptoms with candy. None since Lantus dose was ordered Family history of T2DM in her mother. last eye exam: this is scheduled , no known retinopathy. Has neuropathy. not painful she is seen by podiatry. 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 Has nephropathy, on Ramipril 10 mg PO daily. UAC 243.0 07/15/2022. Following with Dr. Mcneill from Nephrology. Has HLD, on Rosuvastatin 40 mg PO daily which she started in November 2019. LDL 276 07/15/2022. She reports poor compliance. No history of CAD, but did have CVA in the past. Diet: eats a lot of sweets but is working on Weight: Stable Has had diabetes education. She continues to work with RD. COLE Medical History (Updated 09/05/24 @ 13:49 by Duke Izaguirre MD) Hyperparathyroidism Tinnitus Hearing loss Anxiety and depression Diabetes mellitus, with long-term current use of insulin Urinary, incontinence, stress female Wheezing Vitamin B12 deficiency Occlusion of stent of peripheral artery Personal history of nicotine dependence Chronic low back pain History of CVA (cerebrovascular accident) (~10/2020) History of kidney stones Tubular adenoma of colon COVID-19 vaccine series declined Colitis without complication Ureteral stone with hydronephrosis Myasthenia gravis Pernicious anemia Myasthenia gravis Urge urinary incontinence Microalbuminuria Vitamin D deficiency Hypothyroidism Multinodular thyroid HTN (hypertension) Surgical History History of surgery History of amputation of toe Hx of blood clots Status post biopsy of thyroid gland (~2021) History of colonoscopy History of esophagogastroduodenoscopy (EGD) History of bilateral cataract extraction (~2019) History of parathyroidectomy History of lithotripsy (~2013) History of hernia repair History of hysterectomy (~1984) Family History Father Lung cancer Mother Asthma Diabetes HTN (hypertension) Heart attack Sister FH: mental illness Leukemia Mental health disorder Social History (Reviewed 09/05/24 @ 13:14 by Promise Jones [facility]) Household Members: None Housing: Apartment Alcohol intake: current Alcohol intake frequency: does not drink Patient Tobacco Use Status: Current someday Tobacco user Tobacco use type: Cigarette Years Smoked: 45 +/- e-Cigarette/Vaping Use: Never Used Advance Directives Date on File: 03/03/22 service: No Current occupational status: disabled Cognitive needs: No Hearing needs: No Vision needs: No Physical Exam Vital Signs: Last Vital Signs Pulse 92 09/15/24 10:42 BP 182/86 H 09/15/24 10:42 Pulse Ox 99 09/15/24 10:42 Oxygen Delivery Method Room Air 09/15/24 10:42 BMI result Body Mass Index 24.6 Const Other: Absence of Cushingoid features. Absence of acromegalic features. Neck exam reveals nl size thyroid about 15 gms. No thyroid nodules palpable. Heart S1 S2, Reg R/R. No M/R G. Skin exam reveals absence of vitiligo or acanthosis nigricans. Visual exam of foot performed. No ulcerations or open lesions. No inter digit maceration or fissuring. No onychomycosis, no callouses. Sensation intact to monofilament exam. Vibratory sensation is normal with 128 Hz tuning fork. Results AMB Hemoglobin A1c AMB Hemoglobin A1c 7.1 % Last Edit by GRACE Madden on 09/15/24 11:03 Results Reviewed Results Reviewed: Laboratory Last Values Glucose (Clinic) 246 mg/dL (60-115) H 09/15/24 10:49 Hgb A1c (Clinic) 7.1 % (4.0-6.0) H 09/15/24 11:02 Assessment & Plan Assessment & Plan (1) Diabetes mellitus, with long-term current use of insulin: Code(s): E11.9 - Type 2 diabetes mellitus without complications; Z79.4 - MCC (current) use of insulin Category: Medical Plan: 69-year-old type 2 diabetic with nephropathy and neuropathy with most recent A1c on 09/15/24.. She is followed by Dr. Hope for MNG and hyperparathyroidism andwas seen 04/08 with f/u Orders: Orders AMB Hemoglobin A1c Today E11.9 - Type 2 diabetes mellitus without complications, Z79.4 - ocean transportation intermediary (current) use of insulin Coding Diagnoses Diabetes mellitus, with long-term current use of insulin E11.9; Z79.4
[2024-09-15 10:42] VITALS: BP 182/86; PULSE 92; O2SAT 99; BMI 24.6
[2024-09-15 10:54] LABS: Glucose, Whole Blood 246 mg/dL (60-115)
--- OUTSIDE RECORDS SUMMARY | 2024-09-15 11:48 | XMS_ITS | Clinical Summary ---
Author Organization [facility] Address [address] [place] [address] Phone Care Team Providers Care Tool Programmer Name Role Phone Sabas De Souza MD Primary Care Provider [phone] Allergies Active Allergy Reactions Criticality Noted Date Comments Gabapentin Other (see comments) 11/09/2020 Penicillins Other (see comments) 11/09/2020 Medications ramipril (ALTACE) 10 MG capsule Take 1 capsule by mouth 1 (one) time each day Active pyridostigmine (MESTINON) 180 MG CR tablet Take 1 tablet by mouth 3 (three) times a day Active pantoprazole (PROTONIX) 20 MG EC tablet Take 1 tablet by mouth 1 (one) time each day Active oxybutynin XL (DITROPAN-XL) 15 MG 24 hr tablet Take 1 tablet by mouth 1 (one) time each day Active metFORMIN (GLUCOPHAGE) 1000 MG tablet Take 1 tablet by mouth 2 (two) times a day Active cholecalciferol (VITAMIN D-3) 25 MCG (1000 UT) tablet Take 1 tablet by mouth 1 (one) time each day Active ezetimibe (ZETIA) 10 MG tablet TAKE 1 TABLET BY MOUNT ONCE DAILY 1 Active dicyclomine (BENTYL) 20 MG tablet Take 20 mg by mouth 4 times a day 1 Active mesalamine (LIALDA) 1.2 g EC tablet Take 1,200 mg by mouth 1 (one) time each day with breakfast Do not crush, chew, or split. Active clopidogrel (PLAVIX) 75 MG tablet Take 75 mg by mouth 1 (one) time each day Active atorvastatin (LIPITOR) 80 MG tablet Take 80 mg by mouth 1 (one) time each day Active [facility] Bisacodyl 5 MG EC tablet Take 10 mg by mouth every night 1 Active levothyroxine (SYNTHROID, LEVOTHROID) 137 MCG tablet Take 137 mcg by mouth 1 (one) time each day 1 Active mycophenolate (CELLCEPT) 500 MG tablet Take by mouth 2 (two) times a day Active oxyCODONE (ROXICODONE) 5 MG immediate release tablet TAKE 1 TABLET BY MOUTH EVERY 12 HOURS FOR 7 DAYS NEEDED FOR PAIN Active hydroCHLOROthia zide 25 MG tablet TAKE 1 TABLET BY MOUTH 1 TIME EACH DAY. 90 tablet 3 4 Active amLODIPine (NORVASC) 5 MG tablet TAKE 2 TABLETS BY MOUTH 1 TIME EACH DAY. 180 tablet 2 4 Active potassium citrate 10 MEQ (1080 MG) CR tablet TAKE 1 TABLET BY MOUTH 2X/DAY IN THE MORNING AND IN THE EVENING WITH MEALS. DO NOT CRUSH/CHEW/SPL IT. 180 tablet 5 Active Active Problems Problem Noted Date Diagnosed Date Hypercalcemia 10/02/2022 History of calculus of kidney 12/05/2020 Chronic kidney disease, stage 2 (mild) 1 Type 2 diabetes mellitus wit h diabetic chronic kidney disease 11/19/2020 Essential hypertension 11/09/2020 Proteinuria 11/09/2020 Resolved Problems Problem Noted Date Diagnosed Date Resolved Date Type 2 diabetes mellitus 11/09/202008/2020 Hyperparathyroidism 06/23/2017 01/16/20 21 Carpal tunnel syndrome 11/20/201601/15 Gastroesophageal reflux disease 09/18/2016 01/15/2021 Blood in urine 09/18/2016 01/15/2021 Thyroid nodule 09/04/2016 01/15/2021 Myasthenia gravis 09/04/2016 01/15/2021 Hyperlipidemia 09/04/2016 01/15/2021 Hernia of anterior abdominal wall 09/04/2016 01/15/2021 Depressive disorder 09/04/2016 01/16/20 21 Chronic back pain 09/04/2016 01/15/2021 Asthma 09/04/2016 01/15/2021 Hypertensive disorder 09/04/20162020 Type 2 diabetes mellitus 09/04/201608/2020 Type 1 diabetes mellitus 01/30/201408/2020 Osteoporosis 09/05/2013 01/15/2021 Essential hypertension 09/05/201301/15 Encounters Date Type Department Care Team Description 08/25/2024 Office Communication [facility] [address] [facility] [address] [place] [address] Maia Leon 06/22/2024 Refill [facility] [address] [place] [address] Misael Mcneill MD from Last 3 Months Immunizations Name Administration Dates Next Due Influenza TIV (IM) 05/17/2015,06/01/2014, 013,04/01/2012 Pfizer SARS-COV-2 05/06/2021,04/15/2021 Pneumococcal Polysaccharide 02/28/2021, 6,04/01/2012 Tdap 04/30/2017 Family History Medical History Relation Comments Kidney disease Child daughter Cancer Father lung Diabetes Mother Heart disease Mother Hypertension Mother Stroke Mother Cancer Sibling sister>lung Relation Status Comments Child Father Mother Sibling Social History Tobacco Use Types Packs/Day Years Used Date Smoking Tobacco: Every Day Cigarettes Smokeless Tobacco: Never Alcohol Use Standard Drinks/Week Comments No 0 (1 standard drink = 0.6 oz pur e alcohol) Comments Unknown Sex and Gender Information Value Date Recorded Sex Assigned at Not on file Legal Sex Female 4:57 PM EST Gender Identity Not on file Sexual Orientation Not on file Last Filed Vital Signs Vital Sign Reading Time Taken Comments Blood Pressure 143/80 09/15/2023 1:30 PM EDT Pulse 67 09/15/2023 1:30 PM EDT Temperature - - Respiratory Rate - - Oxygen Saturation 99% 09/15/2023 1:30 PM EDT Inhaled Oxygen Concentration - - Weight 72.6 kg (160 lb) 09/15/2023 1:30 PM EDT Height 157.5 cm (5' 2 ) 04/14/2022 3:55 PM EDT Body Mass Index 29.26 04/14/2022 3:55 PM EDT Plan of Treatment Upcoming Encounters Date Type Department Care Team (Late st Contact Info) Description 10/20/2024 2:45 PM EDT Office Visit [facility] [address] [place] [address] Misael Mcneill MD [address] [facility] [address] [place] [address] Health Maintenance Due Date Last Done Comments Breast Cancer Screening 1955 Colorectal Cancer Screening: Annual FOBT 2005 Colorectal Cancer Screening: Colonoscopy 2005 Colorectal Cancer Screening: Sigmoidoscopy 2005 Diabetes: Ophthalmology Exam 07/16/2020 Diabetes: Pedal Pulse Checked 07/16/2020 Diabetes: Sensory Foot Exam 07/16/2020 Diabetes: Visual Foot Exam 07/16/2020 Pneumococcal Vaccine: 65+ Years (3 of 3 - PCV) 02/28/2022 02/28/2021, 05/22/2016, 04/01/2012 Diabetes: Hemoglobin A1C 05/14/2023 02/11/2023, 1111/2019 Influenza Vaccine (#1) 2024 5, 06/01/2014, 04/07/2013, Additional history exists Hepatitis B Vaccine Aged Out No longe r eligible based on patient's age to complete this topic Procedures Procedure Name Priority Date/Time Associated Diagnosis Comments EXT RESULT ENTRY Routine 02/11/2023 from Last 3 Months or Most Recently Relevant to Health Maintenance Results * (ABNORMAL) EXT RESULT ENTRY (02/11/2023) Hemoglobin A1C 6.3(A) 4.0 - 6.0 02/11/2023 us Historical Provider LAB BLOOD ORDERABLES Angie l Result from Last 3 Months or Most Recently Relevant to Health Maintenance [facility] ([id number]) Care Teams Tool Programmer Relationship Specialty Start Date End Date Sabas De Souza MD [address] [place] [address] PCP - General Internal Medicine 12/24/20
--- OUTSIDE RECORDS SUMMARY | 2024-09-15 11:49 | XMS_ITS ---
Author Organization [facility] Address [address] [place] [address] Care Team Providers Care Pipe Bowl Paint Trimmer Name Role Phone Ap GODDARD, Bernadette Lyman Primary Care Provider Un available Terri Jacobo Unavailable [phone] REASON FOR VISIT day cx Encounters Encounter Location Date Provider Diagnosis [address] [address] 07/05/2024 Terri Jacobo Plan Of Treatment Next Appt Details Provider Name:Terri ernandez, 10/28/2024 12:45:00 PM, [address] [place], [address], Progress Notes * Dannie FITZGERALDOB: [birth year] (69 yo F)Acc No.[id number]:07/05/2024 Patient:?Magy FITZGERALD :1955???Age:69 Y???Sex:Female Address:[address] [place] [address] [address], [place], [address] * true * Date:? Generated for Printi ana/Wade/eTransmitting on:?09/15/2024 11:48 AM EDT
--- OUTSIDE RECORDS SUMMARY | 2024-09-15 11:49 | XMS_ITS | Encounter Summary ---
Author Organization [facility] Address [address] [facility] [address] [place] [address] Phone Care Team Providers Care Outbound Sales Consultant Name Role Phone Sabas De Souza MD Primary Care Provider [phone]- [phone] Encounter Details Date Type Department Care Team (Late Contact Info) Description 10/31/2021 Documentation Only [facility] [address] [facility] [address] [place] [address] Misael Mcneill MD [address] [address] Social History Tobacco Use Types Packs/Day Years [...] on file Sexual Orientation Not on file documented as of this encounter Plan of Treatment Upcoming Encounters Date Type Department Care Team (Late Contact Info) Description 10/20/2024 2:45 PM EDT Office [facility] [address] [place] [address] Misael Mcneill MD [address] [address] documented as of this encounter Visit Diagnoses Not on filedocumented in this encounter Care Teams Outbound Sales Consultant Relationship Specialty Start Date End Date Sabas De Souza MD [facility] [place] [address] PCP - General Internal Medicine 12/24/20 documented as of this encounter
--- OUTSIDE RECORDS SUMMARY | 2024-09-15 11:49 | XMS_ITS | Encounter Summary ---
Author Organization [facility] Address 100 [facility] 200 [place] [address] Phone Care Team Providers Care Slab Installer Name Role Phone Sabas De Souza MD Primary Care Provider [phone]- [phone] Encounter Details Date Type Department Care Team (Late Contact Info) Description 10/28/2021 Telephone [facility] 100 [facility] [address] [place] [address] Misael Mcneill MD [address] [facility] 204 [place] [address] Social History Tobacco Use Types Packs/Day [...] on file documented as of this encounter Miscellaneous Notes * Telephone Encounter - Nicolasa Rainey - 10/28/2021 2:54 PM EDT Pt called, she would like to speak with you. She was at the [facility] ER and was told she has kidney stones. She would like to speak with you about this. Please call her back at [phone] Thank you documented in this encounter Plan of Treatment Upcoming Encounters Date Type Department Care Team (Late Contact Info) Description 10/20/2024 2:45 PM EDT [facility] [address] [place] [place] [address] Misael Mcneill MD [address] [facility] 204 [place] [address] documented as of this encounter Visit Diagnoses Not on filedocumented in this encounter Care Teams Slab Installer Relationship Specialty Start Date End Date Sabas De Sou[place] [address] PCP - General Internal Medicine 12/24/20 documented as of this encounter
--- OUTSIDE RECORDS SUMMARY | 2024-09-15 11:49 | XMS_ITS | Data Portability ---
Author Organization [employer] [place] [facility] [place] Address [address] [place] [address] Care Team Providers Care Material Flow Engineer Name Role Phone [facility] Referring Provider [phone] Assessment Encounter Date Assessment Date Assessment LastModified by Organization Details LastModified Time 01/13/2022 01/13/2022 I have reviewed and agree with the assessment and plan as documented by the septic cleaner. I provided real-time medical direction for this encounter and was immediately available to provide additional phone-based assistance as needed. 66F with chronic dvt presents with ongoing pain to left small toe. Noted discoloration to area. No warmth or erythema. Pt endorses taking Advil regularly, however is known for CKD, and Plavix. Pt advised to discontinue NSAIDS and to use Tylenol regularly. No evidence for acute infectious process and pt on Keflex. Has follow up appointment coming up. Pt advised to use tylenol regularly and monitor symptoms, Red flag symptoms discussed. Plan: Tylenol 650mg x1 paysola Not available 01/13/2022 20:48:15 Plan of Treatment Reminders Order Date Submit Date Provider Last Modified By Organization Details Last Modified Time Details Appointments None recorded. Lab None recorded. Referral None recorded. Procedures None recorded. Surgeries None recorded. Imaging None recorded. Medication Orders Tylenol 8 Hour 650 mg tablet,ex tended release 022 022 paysola Not available 20:48:24 Patient TargetsNo targets recorded. Patient InstructionsNo instructions recorded. Reason for Referral None Reported. Medical Equipment None Reported. Medications Name Sig Start Date Stop Date Status Note LastModified by Organization Details LastModified Time levothyroxin e 137 mcg tablet TAKE 1 TABLET BY MOUTH EVERY DAY FOR 30 DAYS active Not Available Not Available No t Available oxybutynin chloride ER 15 mg tablet,exten ded release 24 hr TAKE 1 TABLET BY MOUTH EVERY DAY active Not Available Not Available No t Available meloxicam 15 mg tablet TAKE 1 TABLET BY MOUTH ONCE DAILY DIRECTED FOR 25 DAYS active Not Available Not Available Not Available amlodipine 5 mg tablet TAKE 2 TABLETS (10 MG TOTAL) BY MOUTH ONCE DAILY. active Not Available Not Available Not Available sulfamethoxa zole 800 mg-trimethop rim 160 mg tablet TAKE 1 TABLET BY MOUTH EVERY 12 HOURS FOR 10 DAYS active Not Available Not Available Not Available tramadol 50 mg tablet active Not Available Not Available No t Available mycophenolat e mofetil 500 mg tablet TAKE 2 TABLETS BY MOUTH 3 TIMES A DAY active Not Available Not Available Not Available oxycodone-ac etaminophen 5 mg-325 mg tablet active Not Available Not Available Not Available hydromorphon e 2 mg tablet TAKE 1 TAB ORALLY EVERY 6 HOURS NEEDED FOR PAIN active Not Available Not Available No t Available famotidine 20 mg tablet TAKE 1 TABLET BY MOUTH DAILY AT BEDTIME. active Not Available Not Available Not Available pantoprazole 40 mg tablet,delay ed release TAKE 1 TABLET BY MOUTH DAILY. active Not Available Not Available No t Available cyanocobalam in (vit B-12) 1,000 mcg/mL injection solution INJECT 1 ML INTO THE MUSCLE EVERY 4 WEEKS active Not Available Not Available No t Available metformin 1,000 mg tablet TAKE 1 TABLET BY MOUTH TWICE A DAY active Not Available Not Available No t Available levothyroxin e 125 mcg tablet TAKE 1 TABLET BY MOUTH EVERY DAY FOR 30 DAYS active Not Available Not Available No t Available clotrimazole -betamethaso ne 1 %-0.05 % topical cream 1 APPLICATION TO AFFECTED AREA EXTERNALLY TWICE A DAY TO AFFECTED AREAS ON FEET 30 DAYS active Not Available Not Available No t Available levothyroxin e 150 mcg tablet TAKE 1 TABLET BY MOUTH EVERY DAY active Not Available Not Available No t Available docusate sodium 100 mg capsule active Not Available Not Available N ot Available pyridostigmi ne bromide ER 180 mg tablet,exten ded release TAKE 1 TABLET BY MOUTH THREE TIMES A DAY active Not Available Not Available Not Available hydrochlorot hiazide 25 mg tablet TAKE 1 TABLET BY MOUTH EVERY DAY active Not Available Not Available No t Available loteprednol etabonate 0.5 % eye drops,suspen dayo INSTILL 1 DROP INTO RIGHT EYE 3 TIMES A DAY active Not Available Not Available Not Available albuterol sulfate HFA 90 mcg/actuatio n aerosol inhaler INHALE 2 PUFFS EVERY 6 HOURS NEEDED FOR WHEEZING active Not Available Not Available No t Available cefdinir 300 mg capsule TAKE 1 CAPSULE BY MOUTH EVERY 12 HOURS FOR 10 DAYS active Not Available Not Available Not Available ramipril 10 mg capsule TAKE 1 CAPSULE BY MOUTH EVERY DAY active Not Available Not Available No t Available levothyroxin e 112 mcg tablet TAKE 1 TABLET BY MOUTH EVERY DAY FOR 30 DAYS active Not Available Not Available No t Available oxycodone 5 mg tablet TAKE 1 TABLET BY MOUTH EVERY 12 HOURS FOR 7 DAYS NEEDED FOR PAIN active Not Available Not Available No t Available ciclopirox 0.77 % topical cream APPLY 1 APPLICATION TO AFFECTED AREA EXTERNALLY TO FEET TWICE A DAY FOR 30 DAYS active Not Available Not Available Not Available Tylenol 8 Hour 650 mg tablet,exten ded release Take 2 tablets every 8 hours by oral route. 2021 active Not Available Not Available Not Avai lable rosuvastatin 40 mg tablet TAKE 1 TABLET BY MOUTH EVERY DAY active Not Available Not Available No t Available FreeStyle Lite Meter kit USE DIRECTED active Not Available Not Available No t Available cholecalcife rol (vitamin D3) 1,250 mcg (50,000 unit) capsule TAKE 1 CAPSULE BY MOUTH ONCE A WEEK active Not Available Not Available No t Available Lantus Solostar U-100 Insulin 100 unit/mL (3 mL) subcutaneous pen INJECT 12 UNITS INTO THE SKIN AT BEDTIME active Not Available Not Available No t Available oxycodone 10 mg tablet TAKE 1 TABLET BY MOUTH EVERY 12 HOURS FOR 10 DAYS active Not Available Not Available Not Available Myrbetriq 25 mg tablet,exten ded release TAKE 1 TABLET BY MOUTH EVERY DAY active Not Available Not Available No t Available Eliquis 2.5 mg tablet active Not Available Not Available No t Available Trulicity 1.5 mg/0.5 mL subcutaneous pen injector INJECT 1 PEN UNDER THE SKIN ONCE PER WEEK X30 DAYS active Not Available Not Available No t Available Trulicity 0.75 mg/0.5 mL subcutaneous pen injector INJECT 0.75 MG (0.5 ML) UNDER THE SKIN ONCE PER WEEK active Not Available Not Available No t Available Trulicity 3 mg/0.5 mL subcutaneous pen injector INJECT 1 PEN SUBCUTANEOU SLY EVERY WEEK active Not Available Not Available No t Available Vitals Date Recorded Respiratory rate Body temperature Heart rate Oxygen saturation Oxygen saturation in Arterial blood by Pulse oximetry Systolic blood pressure Diastolic blood pressure Provider Name and Address Organization Details Last Updated DateTime 2 18 /min 98.9 [degF] 87 /min 98 % 98 % 139 mm[Hg] 89 mm[Hg] Not Available [employer] - production 20:37:06 Social History None recorded. Functional Status None recorded. Mental Status None recorded. Family History Nothing Reported. Medical History No medical history recorded. Gynecological HistoryNo gynecological history recorded. Obstetrics History GPAL:G 0 P 0 0 0 0 Past Encounters Encounter ID Performer Location Encounter Start Date Encounter Closed Date Diagnosis/Indication Diagnosis SNOMED-CT Code Diagnosis ICD10 Code Diagnosis Note [id number] Itzel Mott MD [facility] [address] [place] [address] 01/13/2022 20:36:58 02/19/2022 12:51:59 Chronic deep venous thrombosis of lower extremity 0433484195 53505 I82.509 Health Concerns Section Related Observation LastModified by Organization Detai ls LastModified Time None Recorded Concern Status LastModified by Organization Details LastModified Time None Recorded Advance Directives Directive None Recorded Payers Encounter Date Sequence Insurance Name Policy Number Policy Nicolas Covered Member ID Nicolas Member ID Guarantor Name 01/13/2022 1 [facility] - DOS PRIOR TO 2022 - DUAL ELIGIBLE (MEDICARE REPLACEMENT/ADV ANTAGE - HMO) Magy Fitzgerald [id number] Magy Fitzgerald Notes Date Note Type Note Provider Name and Address Organization Details Recorded Time 01/13/2022 text/html [facility] Nursing Assessment: Chief Complaints: Pain PMH: Diabetes Allergies: Unknown Comments: 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
--- OUTSIDE RECORDS SUMMARY | 2024-09-15 11:49 | XMS_ITS | Patient Health Record ---
Author Organization [facility] Address [address] [facility] [place] [address] Care Team Providers Care Construction Superintendent Name Role Phone Ap GODDARD, Bernadette Lyman Primary Care Provider Un available [place] Terri Unavailable [phone] Allergies Allergen (clinical drug ingredient) Drug/Non Drug Allergy documented on EMR Reaction Allergy Type Onset Date Status gabapentin Gabapentin Unknown Drug Allergy Activ e Penicillin Unknown Drug Allergy Active Reason For Referral No Information Medications Medication SIG (Take, Route, Frequency, Duration) Notes Start Date End Date Status Clotrimazole-Betamethason e 1-0.05 % APPLY TO AFFECTED AREA ON FEET TWICE A DAY for 30 Active Potassium Active amLODIPine Besylate 5 MG 1 tablet Orally Once a day for 30 day(s) Active Bactrim DS 800-160 MG 1 tablet Orally every 12 hrs for 5 days 09/16/2022 Not-Taking Levothyroxine Sodium 137 MCG 1 tablet in the morning on an empty stomach Orally Once a day for 30 day(s) Active Ciclopirox Olamine 0.77 % 1 application to affected area Externally to feet Twice a day for 30 days Not-Taking Extra Depth Orthopedic Shoes (1 Pair) with [...] (M20.41,M20.42), Preulcerative Skin Lesion(s) (L85.1 07/02/2022 Active Ramipril 10 MG 1 capsule Orally Once a day for 30 day(s) Active oxyCODONE ER Not-Darshan ing Rosuvastatin Calcium 40 MG 1 tablet Orally Once a day for 30 day(s) Active Bactrim DS 800-160 MG 1 tablet Orally every 12 hrs for 10 day(s) 06/03/2023 Not-Taking metFORMIN HCl 1000 MG 1 tablet with a meal Orally Once a day for 30 day(s) Active Meloxicam 15 MG as directed Orally Once a day for 25 days from urgent care Not-Taking pyRIDostigmine [place] ER 180 MG 1 tablet Orally Once a day for 30 day(s) Active Bactrim 09/22/22 from Urgent care Not-Taking Metoprolol Succinate ER 25 MG Oral for 90 Active Cholecalciferol 25 MCG (1000 UT) 1 capsule Orally Once a day for 30 day(s) Active Atorvastatin Calcium 80 MG 1 tablet Orally Once a day for 30 day(s) Not-Taking oxyBUTYnin Chloride 5 MG 1 tablet Orally Twice a day for 30 day(s) Active hydroCHLOROthiazide 25 MG 1 tablet in th e morning Orally Once a day for 30 day(s) Not-Taking Immunizations Vaccine Route Administration Date Status Comme nts Influenza Unknown 08/18/2023 Refused Social History Tobacco Use: Social History Observation Description Date Details (start date - stop date) Current Smoker NA - NA Tobacco Use/Smoking Question Answer Notes Are you a: current smoker How often do you smoke cigarettes? every day How many cigarettes a day do you smoke? 5 or les s How soon after you wake up d o you smoke your first cigarette? after 60 minutes Additional Findings: Tobacco Non-User Current no n-smoker Alcohol Screen Question Answer Notes Did you have a drink containing alcohol in the p ast year? No Points 0 Interpretation Negative Tobacco use other than smoking: Question Answer Notes Are you an other tobacco user? No Problems Problem Type SNOMED Code ICD Code Onset Dates Problem Status W/U Status Risk Notes Problem Acquired hammer toe of right foot (0015438690811610) Other hammer toe(s) (acquired), right foot (M20.41) Active confirmed Problem Acquired hammer toe of left foot (6825121298682960) Other hammer toe(s) (acquired), left foot (M20.42) Active confirmed Problem 23832018 Non-pressure ulcer of right lower extremity, limited to breakdown of skin (L97.911) Active confirmed Problem 90925571 Type 2 diabetes mellitus with polyneuropathy (E11.42) Active confirmed Problem 30097007953222480 Atherosclerosi s of artery of both lower extremities (I70.203) Active confirmed Problem 80163405795510140 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) Active confirmed Vital Signs Blood pressure diastolic 90 mm Hg 12/15/2023 Height 5ft1in in 12/15/2023 Blood pressure systolic 137 mm Hg 12/15/2023 Weight 140 lbs 12/15/2023 BMI 26.45 kg/m2 12/15/2023 Encounters Encounter Location Date Provider Diagnosis [address] [address] 12/15/2023 Terri Jacobo Atherosclerosis of artery of both lower extremities I70.203 ; Tinea pedis B35.3 and Type 2 diabetes mellitus with polyneuropathy E11.[address] [address] 10/28/2023 [facility] [address] 03/17/2024 Terri Jacobo [address] [address] 04/25/[address] [facility] [address] [facility] [address] 07/05/2024 Terri Jacobo Assessments Encounter Date Diagnosis (ICD Code) Assessment Notes Treatment Notes Treatment Clinical Notes Section Notes 12/15/2023 Atherosclerosis of artery of both lower extremities (ICD-10 - I70.203) 12/15/2023 Tinea pedis (ICD-10 - B35.3) 12/15/2023 Type 2 diabetes mellitus with polyneuropathy (ICD-10 - E11.42) Plan Of Treatment Next Appt Details Provider Name:Terri ernandez, 10/28/2024 12:45:00 PM, [address] [place], [address], Insurance Providers Payer Name Payer Address Payer Phone Subscriber Number Group Number Insured Name Patient Relationship to Insured Coverage Start Date Coverage End Date [facility] [employer] Claims [address] [place] [address] [phone] [id number] Magy Trejo Self - patient is the insured Medical (General) History Medical History History ICD Code Myasthenia gravis Anemia Arthritis asthma Back,Hip,and Knee pain CAD (Cholesterol) Diabetic Gall bladder problems Glaucoma High blood pressure Multiple sclerosis Stroke thyroid Vascular phlebitis (clots) Measles Mumps Chicken pox covid-19 Surgical History Surgery Date(Month/Year) toe removal 01/26/22 cataract surgery Hernia Repair hysterectomy Lithotripsy parathyroidectomy Amputation of pinky toe 04/[address] Carmona Hip Surgery - [place] on left side 05/29/[address] Carmona 07/16/23
--- OUTSIDE RECORDS SUMMARY | 2024-09-15 11:49 | XMS_ITS | Encounter Summary ---
Author Organization [facility] Address [address] [facility] 200 [place] [address] Phone Care Team Providers Care Livestock Ranch Hand Name Role Phone Sabas De Souza MD Primary Care Provider [phone]- [phone] Encounter Details Date Type Department Care Team ([facility] Contact Info) Description 12/03/2020 Orders Only [facility] [address] [place] [address] Misael Mcneill MD [address] [facility] [address] [place] [address] Persistent proteinuria; Type 2 diabetes mellitus with diabetic chronic kidney disease (HCC); Hypertensive disorder Social History Tobacco Use Types Packs/Day Years Used Date Smoking Tobacco: Every Day Cigarettes Alcohol Use Standard Drinks/Week Comments No 0 (1 standard drink = 0.6 oz pur e alcohol) Comments Unknown Sex and Gender Information Value Date Recorded Sex Assigned at Not on file Legal Sex Female 4:57 PM EST Gender Identity Not on file Sexual Orientation Not on file COVID-19 Exposure Response Date Recorded In the last month, have you been in contact with someone who was confirmed or suspected to have Coronavirus / COVID-19? No / Unsure 11/20/2020 8:16 AM EDT documented as of this encounter Plan of Treatment Upcoming Encounters Date Type Department Care Team ([facility] Contact Info) Description 10/20/2024 2:45 PM EDT [facility] [address] [place] [address] Misael Mcneill MD [address] [facility] [address] [place] [address] documented as of this encounter Visit Diagnoses Diagnosis Persistent proteinuria Type 2 diabetes mellitus with diabetic chronic kidney disease (HCC) Hypertensive disorder documented in this encounter Care Teams Livestock Ranch Hand Relationship Specialty Start Date End Date Sabas De Souza MD [place] [address] PCP - General Internal Medicine 12/24/20 documented as of this encounter
--- OUTSIDE RECORDS SUMMARY | 2024-09-15 11:49 | XMS_ITS ---
Author Organization [facility] Address [address] [facility] [place] [address] Care Team Providers Care Degreasing Wheel Operator Name Role Phone Ap GODDARD, Bernadette Lyman Primary Care Provider Un available Terri Jacobo Unavailable [phone] Medications Medication SIG (Take, Route, Frequency, Duration) Notes Start Date End Date Status Bactrim DS 800-160 MG 1 tablet Orally every 12 hrs for 5 days 09/16/2022 Not-Taking Ciclopirox Olamine 0.77 % 1 application to affected area Externally to feet Twice a day for 30 days Not-Taking Clotrimazole-Betamethason e 1-0.05 % APPLY TO AFFECTED AREA ON FEET TWICE A DAY for 30 Active Meloxicam 15 MG as directed Orally Once a day for 25 days from urgent care Not-Taking Bactrim 09/22/22 from Urgent care Not-Taking oxyCODONE ER Not-Darshan ing Bactrim DS 800-160 MG 1 tablet Orally every 12 hrs for 10 day(s) 06/03/2023 Not-Taking Metoprolol Succinate ER 25 MG Oral for 90 Active Atorvastatin Calcium 80 MG 1 tablet Orally Once a day for 30 day(s) Not-Taking hydroCHLOROthiazide 25 MG 1 tablet in morning Orally Once a day for 30 day(s) Not-Taking amLODIPine Besylate 5 MG 1 tablet Orally Once a day for 30 day(s) Active Levothyroxine Sodium 137 MCG 1 tablet in the morning on an empty stomach Orally Once a day for 30 day(s) Active Extra Depth Orthopedic Shoes [...] Once a day for 30 day(s) Active Ramipril 10 MG 1 capsule Orally Once a day for 30 day(s) Active Rosuvastatin Calcium 40 MG 1 tablet Orally Once a day for 30 day(s) Active pyRIDostigmine [place] ER 180 MG 1 tablet Orally Once a day for 30 day(s) Active Cholecalciferol 25 MCG (1000 UT) 1 capsule Orally Once a day for 30 day(s) Active oxyBUTYnin Chloride 5 MG 1 tablet Orally Twice a day for 30 day(s) Active Potassium Active Encounters Encounter Location Date Provider Diagnosis [facility] [address] [address] 07/05/2024 Terri Jacobo Plan Of Treatment Next Appt Details Provider Name:Terri ernandez, 10/28/2024 12:45:00 PM, [address] [place] [address], [address], Progress Notes * Dannie FITZGERALDOB: (69 yo F)Acc No.[id number]:07/05/2024 Progress Note Patient:?Magy FITZGERALD Provider:?Terri Jacobo DPM :1955???Age:69 Y???Sex:Female D ate:07/05/2024 Address:[address] [place], [place] [id number] Pcp:Jesus Hernandez Subjective: * Chief Complaints: * ??? * HPI: ???At Risk footcare:?Pt States Last PCP Visit:?Date?11/16/2023 * Medical History:? * Medications:?Taking Potassiu m , Taking oxyBUTYnin Chloride 5 MG Tablet 1 tablet Orally Twice a day , Taking Cholecalciferol 25 MCG (1000 UT) Capsule 1 capsule Orally Once a day , Taking Rosuvastatin Calcium 40 MG Tablet 1 tablet Orally Once a day , Taking Ramipril 10 MG Capsule 1 capsule Orally Once a day , Taking pyRIDostigmine [place] ER 180 MG Tablet Extended Release 1 [...] tablet Orally every 12 hrs Objective: * Vitals:? Assessment: Plan: * Treatment: * Images: * The named appointment provid er may or may not be the originator of this progress note, and it is not deemed complete until electronically signed by the appointment provider. Sign off status: Pending * Provider:?Terri Jacobo DPM Date:? Generated for Janessa perez/Wade/Rebekahitting on:?09/15/2024 11:48 AM EDT History and Physical Notes * HPI (History of Present Illness) Category Sub-Category Detail Notes Category Not es At Risk footcare Pt States Last PCP Visit: Date: 4
--- OUTSIDE RECORDS SUMMARY | 2024-09-15 11:49 | XMS_ITS ---
Author Organization [facility] Address [address] [place] [id number] Care Team Providers Care Mining Technician Name Role Phone Ap GODDARD, Bernadette Lyman Primary Care Provider Un available Terri Jacobo Unavailable [phone] Encounters Encounter Location Date Provider Diagnosis [address] [address] 05/10/2024 Terri Jacobo Plan Of Treatment Next Appt Details Provider Name:Terri ernandez, 10/28/2024 12:45:00 PM, [address] [place] [address], [id number], Progress Notes * Dannie FITZGERALDOB: (69 yo F)Acc No.[id number]:05/10/2024 Progress Note Patient:?Magy FITZGERALD Provider:?Terri Jacobo DPM :1955???Age:69 Y???Sex:Female D ate:05/10/2024 Address:[address] [place] [address] [address], [place], [id number] Pcp:Jesus Hernandez Subjective: * Chief Complaints: * ??? * Medical History:? Objective: * Vitals:? Assessment: Plan: * Treatment: * Images: * The named appointment provid er may or may not be the originator of this progress note, and it is not deemed complete until electronically signed by the appointment provider. Sign off status: Pending * Provider:?Terri Jacobo DPM Date:? Generated for Janessa perez/Wade/Jamee on:?09/15/2024 11:48 AM EDT
== END 2024-09-15 11:08 | disposition home or self-care (01) ==
LOC: HO.ENCR 10:39
PROVIDERS: PCP Internal Medicine; Visit Provider Nurse Practitioner Adult Health
DX: E11.9 Type 2 diabetes mellitus without complications (principal); Z79.4 Long term (current) use of insulin

== ENCOUNTER → 2024-09-15 10:38 | Outpatient (BNVA) | payer OTHER, SELFPAY | PROVIDERS: PCP Internal Medicine; Visit Provider Nurse Practitioner Adult Health | DX: E11.9 Type 2 diabetes mellitus without complications (principal); Z79.4 Long term (current) use of insulin | CPT/HCPCS: 82947; 83036; 99212 ==

== ENCOUNTER 2024-09-21 13:40 | Outpatient (AMB) | payer OTHER, SELFPAY ==
[2024-09-21 13:45] VITALS: BP 150/80; PULSE 76; RESP 16; TEMP 36.6; O2SAT 100; BMI 25.6
--- NOTE | 2024-09-21 13:45 | MHC.PC.OV ---
Vital Signs 09/21/24 13:45 Height 5 ft 2 in Weight 140 lb BMI 25.6 BP 150/80 H Blood Pressure Location Rt brachial Position Sitting Respiration 16 Pulse 76 Pulse Source Pulse Oximeter Temp 97.8 F Temp Source Oral Pulse Oximetry (%) 100 Oxygen Delivery Method Room Air Intake Visit Reasons: Annual PE Intake Note: Pt is here today for her PE: last mammogram 04/27/24, colonoscopy 07/02/21 Allergies Penicillins [PCN] Allergy (Unknown, Verified 09/26/24 04:28) RASH pregabalin [From Lyrica] Adverse Reaction (Severe, Verified 09/26/24 04:28) skin peeling gabapentin Adverse Reaction (Unknown, Verified 09/26/24 04:28) Dizziness Medication List - Last Reconciled 09/21/24 by Bernadette De Souza MD amlodipine 5 mg PO BID apixaban 5 mg PO BID aspirin 81 mg PO DAILY atorvastatin 40 mg PO DAILY [bed rail As directed NS] blood pressure test kit-medium As directed to monitor blood pressure blood sugar diagnostic (FreeStyle Lite Strips) qid blood-glucose meter (FreeStyle Lite Meter kit) As directed blood-glucose meter (FreeStyle Lite Meter kit) As directed blood-glucose sensor (FreeStyle Oren 3 Plus Sensor device) As directed use in place of freestyle 3 due to shortage of FS3 blood-glucose,weight tester,cont (FreeStyle Oren 3 [place]) As directed escitalopram oxalate 20 mg PO DAILY hydrochlorothiazide 25 mg PO DAILY imipramine HCl 10 mg PO BEDTIME incontinence pad, liner, disp As directed-use up to 4 per day insulin glargine (Lantus Solostar U-100 Insulin) 12 units (0.12 mL) subcut BEDTIME 30 days lancets (FreeStyle Lancets) 4x daily levothyroxine 137 mcg PO DAILY metformin 1,000 mg PO BID 30 days metoprolol succinate ER 25 mg PO DAILY mycophenolate mofetil 1,000 mg PO TID@0800,1300,1900 nut.tx.gluc.intol,lac-free,soy (Glucerna oral liquid) 1 ea PO TID ondansetron mg PO oxybutynin chloride ER 15 mg PO DAILY oxycodone mg PO pen needle, diabetic (BD Ultra-Fine Marilee Pen Needle) As directed once daily pyridostigmine bromide ER 180 mg PO 0800,1300,1900,2000 rosuvastatin 40 mg PO DAILY 90 days [shower bench without back As directed] simethicone 180 mg PO QID 30 days trazodone 150 mg PO BEDTIME Tobacco use date assessed: 09/21/24 Fall risk assessment: No Falls in past year Last assessed Fall Risk: 09/21/24 Dental Screening Dental Screen Date: 09/21/24 Did you have a dental visit in the last 12 months?: Yes Did you have a dental problem in the last 6 months where you did not have access to dental care?: No Was dental information given to patient?: Patient has dentist HPI Annual PE HPI Details 69 year old lady with history of Myasthenia Gravis followed by Neurology at [facility],, history of CVA on Eliquis, Toxic multinodular goiter s/p I131 ablation, prior FNA biopsy 08/23/13 of 3 nodules, all benign, history of primary hyperparathyroidism s/p 2 parathyroid glands removed in 2013 in [facility], history of nephrolithiasis, history of Osteoporosis with last BMD normal as of 08/27/18, diabetes mellitus, hyperlipidemia, and Peripheral arterial disease currently followed by [facility] vascular surgery status post multiple revascularizations, here today for her physical exam.. On 07/26/2024, she underwent left popliteal to dorsalis pedis bypass for left leg ischemia done at [facility]. Patient states that left lower extremity pain after surgery is slowly resolving, however there was a dehiscence of the upper medial calf incision from the bypass surgery, with some minimal serous drainage,, not accompanied by any fever or chills, empirically treated with Bactrim DS twice a day for to be taken for 10 days. Patient also was advised on proper wound care and has an appointment for follow-up with them this week. She is up-to-date with her screening mammogram, last done 04/27/2024 with benign findings. Had a screening colonoscopy done by Dr. Diggs in 2021 with removal of a tubular adenoma polyp, due for repeat colonoscopy in 2026. Latest hemoglobin A1c is at 7.1 %. Compliant with taking her medications as directed. She has had 2 COVID vaccine but does not want to get boosters, declined flu shot due to an adverse reaction to the vaccine in the past, up-to-date with the pneumococcal vaccine. [facility] Medical History Ureteral stone with hydronephrosis Hyperparathyroidism Tinnitus Hearing loss Anxiety and depression Diabetes mellitus, with long-term current use of insulin Urinary, incontinence, stress female Wheezing Vitamin B12 deficiency Occlusion of stent of peripheral artery Personal history of nicotine dependence Chronic low back pain History of CVA (cerebrovascular accident) (~10/2020) History of kidney stones Tubular adenoma of colon COVID-19 vaccine series declined Colitis without complication Myasthenia gravis Pernicious anemia Myasthenia gravis Urge urinary incontinence Microalbuminuria Vitamin D deficiency Hypothyroidism Multinodular thyroid HTN (hypertension) Surgical History History of surgery History of amputation of toe Hx of blood clots Status post biopsy of thyroid gland (~2021) History of colonoscopy History of esophagogastroduodenoscopy (EGD) History of bilateral cataract extraction (~2019) History of parathyroidectomy History of lithotripsy (~2013) History of hernia repair History of hysterectomy (~1984) Family History Father Lung cancer Mother Asthma Diabetes HTN (hypertension) Heart attack Sister FH: mental illness Leukemia Mental health disorder Social History Household Members: None Housing: Apartment Alcohol intake: current Alcohol intake frequency: does not drink Patient Tobacco Use Status: Current someday Tobacco user Tobacco use type: Cigarette Years Smoked: 45 +/- e-Cigarette/Vaping Use: Never Used Advance Directives Date on File: 03/03/22 service: No Current occupational status: disabled Cognitive needs: No Hearing needs: No Vision needs: No Questionnaire PHQ-9 Over the last 2 weeks, how often have you been bothered by any of the following problems? 1. Little interest or pleasure in doing things: not at all 2. Feeling down, depressed, or hopeless: several days 3. Trouble falling or staying asleep, or sleeping too much: several days 4. Feeling tired or having little energy: several days 5. Poor appetite or overeating: not at all 6. Feeling bad about yourself - or that you are a failure or have let yourself or your family down: not at all 7. Trouble concentrating on things, such as reading the newspaper or watching television: not at all 8. Moving or speaking so slowly that other people could have noticed. Or the opposite - being so fidgety or restless that you have been moving around a lot more than usual: not at all 9. Thoughts that you would be better off or of hurting yourself in some way: not at all Total score: 3 Depression Screening Interpretation: Positive (Currently followed by Julio Martinez RN) Depression Screening Follow-up: Existing condition, In treatment and Community Mental Health Worker F/U Depression Screening Done: Yes 75949 - PHQ-9 Billing: Yes Source: Developed by Drs. Cristi De Luna, Bertah Robbins, Gallo Leiva and colleagues, with an educational jud from [employer]. Thrive Questionnaire Date Thrive assessed: 09/21/24 I am a: Patient What is your living situation today?: I have a steady place to live Within the past 12 months, did the food you bought not last and you didn't have the money to get more?: Never true Within the past 12 months, did you worry whether your food would run out before you got money to buy more?: Never true Do you have trouble paying for medicines?: No Do you have trouble getting transportation to medical appointments?: No Do you have trouble paying your heating and electricity bill?: No Do you have trouble taking care of your child, family member or friend?: No Do you have trouble with day-to-day activities such as bathing, preparing meals, shopping, managing finances, etc.?: No Are you currently unemployed and looking for a job?: No Are you interested in more education?: No THRIVE Score: 0 AUDIT C Alcohol Use Questionnaire (AUDIT-C) 1. How often do you have a drink containing alcohol?: Never Total Score: 0 APARNA-7 AMB Questionnaire APARNA-7 Date APARNA - 7 assessed: 10/16/23 Source: Developed by Drs. Cristi De Luna, Gallo Apple and colleagues, with an educational jud from [employer]. Review of Systems Const Denies chills, Denies fatigue, Denies fever(s), Denies frequent falls, Denies headache(s), Denies weakness and Denies weight loss Eyes Details: Overdue for diabetes retinopathy screening Denies change in vision ENT Denies dizziness and Denies headache(s) Card Denies chest pain, Denies leg edema, Denies lightheadedness, Denies palpitations, Denies dyspnea and Denies dyspnea on exertion Resp Denies cough, Denies dyspnea and Denies dyspnea on exertion GI Denies abdominal pain, Denies melena, Denies hematochezia and Denies heartburn Reports no additional complaints Musc Denies abnormal gait, Denies joint swelling, Denies muscle weakness, Denies numbness, Reports stiffness and Denies tingling Skin/Breast Details: Healing surgical scars on left lower and right lower extremity Reports as per HPI Neuro Denies abnormal gait, Denies dizziness, Denies frequent falls, Denies headache(s), Denies numbness, Denies tingling and Denies weakness Psych Reports no additional complaints Endo Denies fatigue and Denies palpitations Jesus/Lymph Reports no additional complaints Aller/Immun Reports no additional complaints Physical exam (Primary Care) Vital Signs: Last Vital Signs Temp 97.8 F 09/21/24 13:45 Pulse 76 09/21/24 13:45 Resp 16 09/21/24 13:45 BP 150/80 H 09/21/24 13:45 Pulse Ox 100 09/21/24 13:45 Oxygen Delivery Method Room Air 09/21/24 13:45 BMI result Body Mass Index 25.6 Tobacco/Smoking Status: Tobacco use Status Tobacco use date assessed 09/21/24 09/21/24 13:48 Patient Tobacco Use Status Current someday Tobacco 09/21/24 13:48 Tobacco use type Cigarette 09/21/24 13:48 e-Cigarette/Vaping Use Never Used 09/21/24 13:48 Are you ready to quit: No PHQ-9: PHQ-9 Score PHQ-9: Total score 3 09/25/24 17:29 Depression Screening Interpretation: Positive (Currently followed by Julio Martinez RN) Depression Screening Follow-up: Existing condition, In treatment and Community Mental Health Worker F/U Thrive Assessment: Date of Thrive Assessment Date Thrive assessed 09/21/24 09/21/24 13:59 Const General: no acute distress and alert Orientation/consciousness: patient oriented x3 HENMT Face and sinus: Yes face symmetric Mouth: Normal oral and palatal mucosa present, oropharynx normal and moist mucous membranes Eyes General: appearance normal, both eyes and all related structures Neck Other: Thyroid gland nonpalpable Neck: Yes full ROM, Yes no lymphadenopathy and Yes supple Chest Breast/axilla palpation: normal palpation of the breasts Resp Effort & Inspection: normal respiratory effort and able to speak in complete sentences Cardio Other: S1-S2 present regular rate and rhythm GI Palpation (GI): Soft to palpation, nontender and no guarding Auscultation: normal bowel sounds General: Yes no CVA tenderness Back/Spine/Pelvis Back: no CVA tenderness Skin Other: Healing surgical scars noted in both lower extremities, with a wound dehiscence noted in left lower extremity with no active drainage, nontender to palpation, minimal swelling surrounding wound Neuro General: patient oriented x3, moves all extremities, no focal motor deficits, CN's II-XI intact bilaterally and decrease sensation to monofilament (In both lower extremities) Extrem Other: No pedal edema noted, no gross bone deformity seen, Absent 5th digits in both feet Psych Appearance: grossly normal and well kempt Mental Status: mental status grossly normal Speech and movement: Normal speech and movement present Affect: normal affect Attitude: cooperative Thought process: Normal thought process present Results Reviewed Results Reviewed: Laboratory Tests 09/15/24 09/15/24 10:49 11:02 Glucose (Clinic) 246 H Hgb A1c (Clinic) 7.1 H Coding Level of Care Code Est Pt Prev Care >65y(21010) Diagnoses Annual visit for general adult medical examination with abnormal findings Z00.01 Hypertension, unspecified type I10 Hypertension type: unspecified Multinodular thyroid E04.2 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 Vitamin D deficiency E55.9 Pernicious anemia D51.0 PAD (peripheral artery disease) I73.9 Anxiety and depression F41.9; F32.A HLD (hyperlipidemia) E78.5 GERD (gastroesophageal reflux disease) K21.9 Diabetes mellitus, with long-term current use of insulin E11.9; Z79.4 Myasthenia gravis G70.00 Additional Codes PHQ-9 - 96279 - PHQ-9 Billing: Yes ([id number]) Assessment & Plan Assessment & Plan (1) Annual visit for general adult medical examination with abnormal findings: Code(s): Z00.01 - Encounter for general adult medical examination with abnormal findings Plan: Will check appropriate labs. Recommended dental visit every 6 months and yearly eye exam for diabetic retinopathy screening. Take adequate calcium in diet and vitamin-D 3 at 2000 IU per cap once a day, in addition to weight-bearing exercises to help maintain good muscle tone and weight control. Instructed to do self-breast exam, and continue with yearly mammogram. She had a colonoscopy done in 2021 with tubular adenoma polyp removed by Dr. Diggs, repeat due again in 2026. Patient has had 2 COVID vaccines but does not want to get any further vaccination, declined flu shot, up-to-date with her Tdap (2) HTN (hypertension): Code(s): I10 - Essential (primary) hypertension Category: Medical Qualifiers: Hypertension type: unspecified Qualified Code(s): I10 - Essential (primary) hypertension Plan: Blood pressure elevated today, patient states however that it has been running below 130/80 when she checks at home. Will continue on amlodipine, hydrochlorothiazide and metoprolol (3) Multinodular thyroid: Code(s): E04.2 - Nontoxic multinodular goiter Category: Medical Plan: Followed by endocrine clinic, will check TSH and free T4 (4) Hypothyroidism: Code(s): E03.9 - Hypothyroidism, unspecified Category: Medical Qualifiers: Hypothyroidism type: postablative Qualified Code(s): E89.0 - Postprocedural hypothyroidism Plan: Currently on levothyroxine 137 mcg daily ordered TSH and free T4 level (5) Vitamin D deficiency: Code(s): E55.9 - Vitamin D deficiency, unspecified Category: Medical Plan: Will check vitamin-D levels (6) Pernicious anemia: Code(s): D51.0 - Vitamin B12 deficiency anemia due to intrinsic factor deficiency Category: Medical Plan: Ordered B12 and folic acid levels and CBC (7) PAD (peripheral artery disease): Code(s): I73.9 - Peripheral vascular disease, unspecified Category: Medical Plan: Has an appointment again for follow-up with vascular surgery due to dehiscence of wound on left lower leg next week (8) Anxiety and depression: Code(s): F41.9 - Anxiety disorder, unspecified; F32.A - Depression, unspecified Category: Medical Plan: Currently followed by Julio Martinez, nurse psychiatrist, and sees her therapist regularly (9) HLD (hyperlipidemia): Code(s): E78.5 - Hyperlipidemia, unspecified Category: Medical Plan: Continue atorvastatin 40 mg daily (10) GERD (gastroesophageal reflux disease): Comment: sees [facility]- Karon adams Code(s): K21.9 - Gastro-esophageal reflux disease without esophagitis Category: Medical Plan: Followed by [facility] (11) Diabetes mellitus, with long-term current use of insulin: Code(s): E11.9 - Type 2 diabetes mellitus without complications; Z79.4 - care home (current) use of insulin Category: Medical Plan: Continue metformin a 1000 mg 1 tablet twice a day, and adherence to healthy eating habits and staying active strongly recommended (12) Myasthenia gravis: Comment: sees Neurologist [address] [place] [address] Code(s): G70.00 - Myasthenia gravis without (acute) exacerbation Category: Medical Plan: Followed by neurology Orders: Orders Thyroid Stimulating Hormone 09/21/24 D51.0 - Vitamin B12 deficiency anemia due to intrinsic factor deficiency, E04.2 - Nontoxic multinodular goiter, E55.9 - Vitamin D deficiency, unspecified, E78.5 - Hyperlipidemia, unspecified, E89.0 - Postprocedural hypothyroidism, F32.A - Depression, unspecified, F41.9 - Anxiety disorder, unspecified, I10 - Essential (primary) hypertension, I73.9 - Peripheral vascular disease, unspecified, N39.3 - Stress incontinence (female) (male) Complete Blood Count Auto Diff 09/21/24 D51.0 - Vitamin B12 deficiency anemia due to intrinsic factor deficiency, E04.2 - Nontoxic multinodular goiter, E55.9 - Vitamin D deficiency, unspecified, E78.5 - Hyperlipidemia, unspecified, E89.0 - Postprocedural hypothyroidism, F32.A - Depression, unspecified, F41.9 - Anxiety disorder, unspecified, I10 - Essential (primary) hypertension, I73.9 - Peripheral vascular disease, unspecified, N39.3 - Stress incontinence (female) (male) Vitamin D 25-OH Total 09/21/24 D51.0 - Vitamin B12 deficiency anemia due to intrinsic factor deficiency, E04.2 - Nontoxic multinodular goiter, E55.9 - Vitamin D deficiency, unspecified, E78.5 - Hyperlipidemia, unspecified, E89.0 - Postprocedural hypothyroidism, F32.A - Depression, unspecified, F41.9 - Anxiety disorder, unspecified, I10 - Essential (primary) hypertension, I73.9 - Peripheral vascular disease, unspecified, N39.3 - Stress incontinence (female) (male) Vitamin B12 and Folate 09/21/24 D51.0 - Vitamin B12 deficiency anemia due to intrinsic factor deficiency, E04.2 - Nontoxic multinodular goiter, E55.9 - Vitamin D deficiency, unspecified, E78.5 - Hyperlipidemia, unspecified, E89.0 - Postprocedural hypothyroidism, F32.A - Depression, unspecified, F41.9 - Anxiety disorder, unspecified, I10 - Essential (primary) hypertension, I73.9 - Peripheral vascular disease, unspecified, N39.3 - Stress incontinence (female) (male) Free T4 (Free Thyroxine) 09/21/24 D51.0 - Vitamin B12 deficiency anemia due to intrinsic factor deficiency, E04.2 - Nontoxic multinodular goiter, E55.9 - Vitamin D deficiency, unspecified, E78.5 - Hyperlipidemia, unspecified, E89.0 - Postprocedural hypothyroidism, F32.A - Depression, unspecified, F41.9 - Anxiety disorder, unspecified, I10 - Essential (primary) hypertension, I73.9 - Peripheral vascular disease, unspecified, N39.3 - Stress incontinence (female) (male) Comprehensive Kevin. Panel Fast 09/21/24 D51.0 - Vitamin B12 deficiency anemia due to intrinsic factor deficiency, E04.2 - Nontoxic multinodular goiter, E55.9 - Vitamin D deficiency, unspecified, E78.5 - Hyperlipidemia, unspecified, E89.0 - Postprocedural hypothyroidism, F32.A - Depression, unspecified, F41.9 - Anxiety disorder, unspecified, I10 - Essential (primary) hypertension, I73.9 - Peripheral vascular disease, unspecified, N39.3 - Stress incontinence (female) (male) Lipid Panel 09/21/24 D51.0 - Vitamin B12 deficiency anemia due to intrinsic factor deficiency, E04.2 - Nontoxic multinodular goiter, E55.9 - Vitamin D deficiency, unspecified, E78.5 - Hyperlipidemia, unspecified, E89.0 - Postprocedural hypothyroidism, F32.A - Depression, unspecified, F41.9 - Anxiety disorder, unspecified, I10 - Essential (primary) hypertension, I73.9 - Peripheral vascular disease, unspecified, N39.3 - Stress incontinence (female) (male) Medications: New fluconazole may repeat second dose 72 hrs after first dose if symptoms persist 150 mg PO Q3D 2 tabs 0RF vaginitis
--- OUTSIDE RECORDS SUMMARY | 2024-09-21 15:51 | XMS_ITS | Patient Health Record ---
Author Organization [facility] Address [address] [place] [address] Care Team Providers Care Admin Dir Name Role Phone Ap GODDARD, Bernadette Lyman Primary Care Provider Un available [place] Terri Unavailable [phone] Allergies Allergen (clinical drug ingredient) Drug/Non Drug [...] 25 days from urgent care Not-Taking pyRIDostigmine [place] ER 180 MG 1 tablet Orally Once [...] Problem Acquired hammer toe of right foot (3724408308077128) Other hammer toe(s) (acquired), right foot (M20.41) Active confirmed Problem Acquired hammer toe of left foot (9460059005742912) Other hammer toe(s) (acquired), left foot (M20.42) Active confirmed Problem [id number] Non-pressure ulcer of right lower extremity, limited to breakdown of skin (L97.911) Active confirmed Problem 26366290 Type 2 diabetes mellitus with polyneuropathy (E11.42) Active confirmed Problem [id number] Atherosclerosi s of artery of both lower extremities (I70.203) Active confirmed Problem [id number] 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) Active confirmed Vital Signs Blood pressure diastolic 90 mm Hg 12/15/2023 Height 5ft1in in 12/15/2023 Blood pressure systolic 137 mm Hg 12/15/2023 Weight 140 lbs 12/15/2023 BMI 26.45 kg/m2 12/15/2023 Encounters Encounter Location Date Provider Diagnosis [address] [address] 12/15/2023 Terri Jacobo Atherosclerosis of artery of both lower extremities I70.203 ; Tinea pedis B35.3 and Type 2 diabetes mellitus with polyneuropathy E11.[address] [address] 10/28/2023 Terri Jacobo [facility] [address] 03/17/2024 Terri Jacobo [address] [address] 04/25/2024 Terri Jacobo [facility] [address] 07/05/2024 Terri Jacobo Assessments Encounter Date Diagnosis (ICD Code) Assessment Notes Treatment Notes Treatment Clinical Notes Section Notes 12/15/2023 Atherosclerosis of artery of both lower extremities (ICD-10 - I70.203) 12/15/2023 Tinea pedis (ICD-10 - B35.3) 12/15/2023 Type 2 diabetes mellitus with polyneuropathy (ICD-10 - E11.42) Plan Of Treatment Next Appt Details Provider Name:Terri ernandez, 10/28/2024 12:45:00 PM, [address] [place], [address], Insurance Providers Payer Name Payer Address Payer Phone Subscriber Number Group Number Insured Name Patient Relationship to Insured Coverage Start Date Coverage End Date [facility] [employer] Claims [address] [place] [address] [phone] [id number] Magy Trejo Self - patient is the [...] left side 05/29/[address] Carmnoa 07/16/23
--- OUTSIDE RECORDS SUMMARY | 2024-09-21 15:51 | XMS_ITS | Encounter Summary ---
Author Organization [facility] Address [address] [facility] 200 [place] [address] Phone Care Team Providers Care Bucket Operator Name Role Phone Sabas De Souza MD Primary Care Provider +1- [phone] Encounter Details Date Type Department Care Team (Late Contact Info) Description 10/31/2021 Documentation Only [facility] [address] [facility] 200 [place] [address] Misael Mcneill MD [address] [address] Social History Tobacco Use Types [...] Visit [facility] [address] [place] [address] Misael Mcneill MD [address] [address] documented as of this encounter Visit Diagnoses Not on filedocumented in this encounter Care Teams Bucket Operator Relationship Specialty Start Date End Date Sabas De Souza MD [facility] [place] [address] PCP - General Internal Medicine 12/24/20 documented as of this encounter
--- OUTSIDE RECORDS SUMMARY | 2024-09-21 15:51 | XMS_ITS | Encounter Summary ---
Author Organization [facility] Address [address] [facility] 200 [place] [address] Phone Care Team Providers Care Tapping Machine Operator Automatic Name Role Phone Sabas De Souza MD Primary Care Provider +1- [phone] Reason for Visit * Reason Comments Med Refill Encounter Details Date Type Department Care Team (Late Contact Info) Description 09/21/2024 Refill [facility] [address] [place] [address] Joe Howard MD [address] [facility] 204 [place] [address] Social History Tobacco Use Types [...] Office Visit [facility] [address] [place] [address] Misael Mcneill MD 7434 [facility] 204 [place] [address] documented as of this encounter Visit Diagnoses Not on filedocumented in this encounter Care Teams Tapping Machine Operator Automatic Relationship Specialty Start Date End Date Sabas De Souza MD [facility] [place] [address] PCP - General Internal Medicine 12/24/20 documented as of this encounter
--- OUTSIDE RECORDS SUMMARY | 2024-09-21 15:51 | XMS_ITS ---
Author Organization [facility] Address [address] [place] [address] Care Team Providers Care Licensed Pesticide Applicator Name Role Phone Ap GODDARD, Bernadette Lyman Primary Care Provider Un available Terri Jacobo Unavailable [phone] Encounters Encounter Location Date Provider Diagnosis [address] [address] 05/10/2024 Terri Jacobo Plan Of Treatment Next Appt Details Provider Name:Terri ernandez, 10/28/2024 12:45:00 PM, [address] [place] [address], [phone], Progress Notes * Dannie FITZGERALDOB: (69 yo F)Acc No.[id number]:05/10/2024 Progress Note Patient:?Magy FITZGERALD Provider:?Terri Jacobo DPM :1955???Age:69 Y???Sex:Female D ate:05/10/2024 Address:[address] [place] [address] [address], [place], [place] Pcp:Jesus Hernandez Subjective: * Chief Complaints: * ??? * Medical History:? Objective: * Vitals:? Assessment: Plan: * Treatment: * Images: * The named appointment provid er may or may not be the originator of this progress note, and it is not deemed complete until electronically signed by the appointment provider. Sign off status: Pending * Provider:?Terri Jacobo DPM Date:? Generated for Janessa perez/Wade/Jamee on:?09/21/2024 03:51 PM EDT
--- OUTSIDE RECORDS SUMMARY | 2024-09-21 15:51 | XMS_ITS | Clinical Summary ---
Author Organization [facility] Address [address] [address] [address] [place] [address] Phone Care Team Providers Care Customer Relations Advisor Name Role Phone Sabas De Souza MD Primary Care Provider +1- [phone] Allergies Active Allergy Reactions Criticality Noted Date [...] Encounters Date Type Department Care Team Description 09/21/2024 Refill [facility] [address] [place], [place] [address] Joe Howard MD 08/25/2024 Office Communication [facility] 204 [place] [address] Maia Leon from Last 3 Months Immunizations Name Administration [...] Visit [facility] [address] [place] [place] [place] [address] Misael Mcneill MD 495[address] [facility] 204 [place] [address] Health Maintenance Due Date Last [...] 05/22/2016, 04/01/2012 Diabetes: Hemoglobin A1C 05/14/2023 02/11/2023, 11/2019 Influenza Vaccine (Season Ended) 2025 05/17/2015, 06/01/2014, 04/07/2013, Additional history exists Hepatitis B [...] Most Recently Relevant to Health Maintenance Insurance [facility] ([id number]) Care Teams Customer Relations Advisor Relationship Specialty Start Date End Date Sabas De Souza MD [address] [facility] [place] [address] PCP - General Internal Medicine 12/24/20
--- OUTSIDE RECORDS SUMMARY | 2024-09-21 15:51 | XMS_ITS | Encounter Summary ---
Author Organization [facility] Address [address] [facility] 200 [place] [address] Phone Care Team Providers Care Technology Support Analyst Name Role Phone Sabas De Souza MD Primary Care Provider +1- [phone] Encounter Details Date Type Department Care Team (Late Contact Info) Description 10/28/2021 Telephone [facility] [address] [place] [address] Misael Mcneill MD [address] [facility] 204 [place] [address] Social History Tobacco Use Types [...] speak with you. She was at the [facility] ER and was told she has kidney stones. She would like to speak with you about this. Please call her back at [phone] Thank you documented in this encounter Plan of Treatment Upcoming Encounters Date Type Department Care Team (Late Contact Info) Description 10/20/2024 2:45 PM EDT Office Visit [facility] [address] [place] [address] Misael Mcneill MD [address] [facility] 204 [place] [address] documented as of this encounter Visit Diagnoses Not on filedocumented in this encounter Care Teams Technology Support Analyst Relationship Specialty Start Date End Date Sabas De Souza [place] [address] PCP - General Internal Medicine 12/24/20 documented as of this encounter
--- OUTSIDE RECORDS SUMMARY | 2024-09-21 15:51 | XMS_ITS ---
Author Organization [facility] Address [address] [facility] [place] [address] Care Team Providers Care Grounds And Nursery Specialist Name Role Phone Ap GODDARD, Bernadette Lyman Primary Care Provider Un available Terri Jacobo Unavailable [phone] Medications Medication SIG (Take, Route, Frequency, Duration) [...] 09/22/22 from Urgent care Not-Taking oxyCODONE ER Not-Darsahn ing Bactrim DS 800-160 MG 1 tablet [...] a day for 30 day(s) Active pyRIDostigmine Hinckley ER 180 MG 1 tablet Orally Once a day for 30 day(s) Active Cholecalciferol 25 MCG (1000 UT) 1 capsule Orally Once a day for 30 day(s) Active oxyBUTYnin Chloride 5 MG 1 tablet Orally Twice a day for 30 day(s) Active Potassium Active Encounters Encounter Location Date Provider Diagnosis [facility] [address] [address] 07/05/2024 Terri Jacobo Plan Of Treatment Next Appt Details Provider Name:Terri ernandez, 10/28/2024 12:45:00 PM, [address] [place] [address], [phone], Progress Notes * Dannie FITZGERALDOB: (69 yo F)Acc No.[id number]:07/05/2024 Progress Note Patient:?Magy FITZGERALD Provider:?Terri Jacobo DPM :1955???Age:69 Y???Sex:Female D ate:07/05/2024 Address:[address] [place], [place] [id number] Pcp:Jesus Hernandez Subjective: * Chief Complaints: * [...] Orally Once a day , Taking pyRIDostigmine Hinckley ER 180 MG Tablet Extended Release 1 [...] DPM Date:? Generated for Janessa perez/Wade/Jamee on:?09/21/2024 02:31 PM EDT History and Physical Notes * HPI (History of Present Illness) Category Sub-Category Detail Notes Category Not es At Risk footcare Pt States Last PCP Visit: Date: 4
--- OUTSIDE RECORDS SUMMARY | 2024-09-21 15:51 | XMS_ITS | Encounter Summary ---
Author Organization [facility] Address [address] [facility] 200 [place] [address] Phone Care Team Providers Care Water Plant Operator Name Role Phone Sabas De Souza MD Primary Care Provider +1- [phone] Encounter Details Date Type Department Care Team ([facility] Contact Info) Description 12/03/2020 Orders Only [facility] [address] [place] [address] Misael Mcneill MD 3[address] [facility] [address] [place] [address] Persistent proteinuria; Type 2 diabetes [...] Upcoming Encounters Date Type Department Care Team ([facility] Contact Info) Description 10/20/2024 2:45 PM EDT Office Visit [facility] [address] [place] [address] Misael Mcneill MD [address] [facility] [address] [place] [address] documented as of this encounter Visit Diagnoses Diagnosis Persistent proteinuria Type 2 diabetes mellitus with diabetic chronic kidney disease (HCC) Hypertensive disorder documented in this encounter Care Teams Water Plant Operator Relationship Specialty Start Date End Date Sabas De Souza MD [facility] [place] [address] PCP - General Internal Medicine 12/24/20 documented as of this encounter
--- OUTSIDE RECORDS SUMMARY | 2024-09-21 15:51 | XMS_ITS ---
Author Organization [facility] Address [address] [place] [address] Care Team Providers Care General Claims Agent Name Role Phone Ap GODDARD, Bernadette Lyman Primary Care Provider Un available Terri Jacobo Unavailable [phone] REASON FOR VISIT day cx Encounters Encounter Location Date Provider Diagnosis [address] [address] 07/05/2024 Terri Jacobo Plan Of Treatment Next Appt Details Provider Name:Terri ernandez, 10/28/2024 12:45:00 PM, [address] [place] [address], [address], Progress Notes * Dannie FITZGERALDOB: [birth year] (69 yo F)Acc No.[id number]:07/05/2024 Patient:?Magy FITZGERALD :1955???Age:69 Y???Sex:Female Address:[address] [place] [address] [address], [place], [address] * true * Date:? Generated for Printi ana/Wade/eTransmitting on:?09/21/2024 03:51 PM EDT
== END 2024-09-21 14:45 | disposition home or self-care (01) ==
LOC: HO.HMCC 13:40
PROVIDERS: PCP Internal Medicine; Visit Provider Internal Medicine
DX: Z00.01 Encounter for general adult medical examination with abnormal findings (principal); E11.51 Type 2 diabetes mellitus with diabetic peripheral angiopathy without gangrene; Z79.4 Long term (current) use of insulin; I73.9 Peripheral vascular disease, unspecified; G70.00 Myasthenia gravis without (acute) exacerbation; I10 Essential (primary) hypertension; E04.2 Nontoxic multinodular goiter; E89.0 Postprocedural hypothyroidism; E55.9 Vitamin D deficiency, unspecified; D51.0 Vitamin B12 deficiency anemia due to intrinsic factor deficiency; F41.9 Anxiety disorder, unspecified

== ENCOUNTER → 2024-09-21 13:40 | Outpatient (BNVA) | payer OTHER, SELFPAY | PROVIDERS: PCP Internal Medicine; Visit Provider Internal Medicine | DX: Z00.01 Encounter for general adult medical examination with abnormal findings (principal); E78.5 Hyperlipidemia, unspecified; E11.51 Type 2 diabetes mellitus with diabetic peripheral angiopathy without gangrene; I10 Essential (primary) hypertension; E04.2 Nontoxic multinodular goiter; E89.0 Postprocedural hypothyroidism; E55.9 Vitamin D deficiency, unspecified; D51.0 Vitamin B12 deficiency anemia due to intrinsic factor deficiency; F41.9 Anxiety disorder, unspecified; F32.A Depression, unspecified; K21.9 Gastro-esophageal reflux disease without esophagitis; G70.00 Myasthenia gravis without (acute) exacerbation; N39.3 Stress incontinence (female) (male); F17.210 Nicotine dependence, cigarettes, uncomplicated; Z79.4 Long term (current) use of insulin; Z86.73 Personal history of transient ischemic attack (TIA), and cerebral infarction without residual deficits; Z79.01 Long term (current) use of anticoagulants; Z87.442 Personal history of urinary calculi | CPT/HCPCS: 96127; 99397 ==

== ENCOUNTER 2024-09-23 11:23 | Outpatient (AMB) | payer OTHER, SELFPAY ==
--- NOTE | 2024-09-23 11:27 | A.OFFVIS_ITS ---
Vital Signs 09/23/24 11:29 Height 5 ft 2 in Weight 134 lb 14.766 oz BMI 24.7 BP 184/80 H Blood Pressure Location Lt brachial Position Sitting Pulse 82 Intake Visit Reasons: Follow up GERD Intake Note: Patient presents in office today in follow up of GERD. CC: Patient report a lot of noise from her abdomen at night because she is taking a lot of medication. Pt also reports bloating. Ruching Machine Operator Required: No Accompanied by: Self / Same As Patient Allergies Penicillins [PCN] Allergy (Unknown, Verified 09/23/24 11:39) RASH pregabalin [From Lyrica] Adverse Reaction (Severe, Verified 09/23/24 11:39) skin peeling gabapentin Adverse Reaction (Unknown, Verified 09/23/24 11:39) Dizziness HPI HPI Follow up GERD: Details: Assessment & Plan ( Comment: [place] [facility] Code(s): K21.9 - Gastro-esophageal reflux disease without esophagitis Category: Medical (2) Irritable bowel syndrome with diarrhea: Code(s): K58.0 - Irritable bowel syndrome with diarrhea Category: Medical (3) Umbilical pain: Code(s): R10.33 - Periumbilical pain Category: Medical Plan She is now having bowel irritability with the increase of her metformin to bid dosing. Running to the [place] post prandially and even not after eating. Creson helped with the perceived gas and boborygmus. She never received the simethicne. Can not use traditional IBS/bowel relaxers r/t MG, will trial imipramine 10mg qhs. She has a perceived umbilical bulge and will get US to evaluate as PE indeterminate. ROV 6 weeks. Orders: Orders US abdomen limited 12/30/23 R10.33 - Periumbilical pain Medications: New imipramine HCl 10 mg PO BEDTIME 30 tabs 3RF 30 days K58.0 - Irritable bowel syndrome with diarrhea ULTRASOUND OF THE ABDOMEN 02/13/24 FINDINGS: There appears to be a periumbilical hernia. Fascial defect is suspected to measure approximately 6 cm. There is suspicion for herniation of bowel. US/US abdomen limited IMPRESSION: Periumbilical hernia is suspected, however, imaging was significantly limited due to patient body habitus. Further evaluation recommended with CT abdomen/pelvis. CT ABDOMEN AND AND PELVIS 05/31/2024 ADDENDUM ADDENDUM #1 Text communication acknowledged by Karon Puente on 07/04/2024 at 1:43 PM. EXAMINATION: CT ABDOMEN PELVIS WITH IV CONTRAST HISTORY: R10.33 - Periumbilical pain COMPARISON: Comparison is made with the prior examination dated 10/25/2021. Correlation is also made with a limited abdominal ultrasound dated 01/22/2024. FINDINGS: LOWER CHEST: The visualized lung bases are clear. There is no pleural effusion. CARDIOVASCULATURE: The heart is normal in size. There is no pericardial effusion. LIVER: The liver is normal in size and contour. No liver mass is identified. The hepatic and portal veins are patent. GALLBLADDER / BILE DUCTS: The gallbladder is surgically absent. There is no intra or extrahepatic biliary ductal dilatation. SPLEEN: The spleen is normal in size. No focal splenic lesion is identified. PANCREAS: The pancreas is unremarkable in appearance. ADRENAL GLANDS: Within normal limits. KIDNEYS/RETROPERITONEUM: No renal calculi are identified. There is moderate right hydronephrosis and proximal hydroureter to the level of a 7 mm proximal ureteral calculus at the L4 vertebral level. There is no left hydronephrosis. There is a 10 mm cyst at the upper pole of the left kidney. LYMPH NODES: No abdominal or pelvic lymphadenopathy. VASCULATURE: The abdominal aorta demonstrates atherosclerotic calcification, but is normal in caliber. MESENTERY/PERITONEUM: No free fluid. No masses. There is no free intraperitoneal gas. STOMACH: The stomach is unremarkable. SMALL BOWEL: The small bowel is normal in caliber. COLON: The colon is unremarkable. APPENDIX: Normal. URINARY BLADDER/PELVIC ORGANS: The urinary bladder is unremarkable. The patient is status post hysterectomy. BONES / SOFT TISSUES: No umbilical hernia is identified. There is degenerative disc disease of the lower lumbar spine. CT/CT abdomen pelvis w IV con IMPRESSION: 1. No evidence of an umbilical hernia. 2. Moderate right hydroureteronephrosis secondary to a 7 mm proximal ureteral calculus. CORRESPONDENCE On 07/12/24 @ 13:56 Karon Puente Wrote To Karon Puente (2) Please call this patient and tell her that the CT I ordered does not show an umbilical hernia, but it does show a large kidney stone on the right with some swelling of the right kidney. She may wish to call her urologist, depending on if she has pain.... TODAY'S VISIT I have started her on Creon try sending simethicone and send a trial of imipramine. Testing shows some conflicting results with ultrasound seeing me to indicate a 6-7 mm umbilical hernia with possible bowel entrapment, cat scan not seeing this hernia, but showing hydronephrosis (this appears to be chronic from her history and) but with a 7 mm renal calculus about the level of L4. SHe had a very bad new health problem of DVT of the bilateral legs and had several vascular surgeries. She also had gangrene of her small toe r/t lack of circulation. She was seen mostly at [facility], but has not been referred to hematology as of this date. I will refer her. Her abd pain has largely subsided. She now has borborymus again and a lot of gas. She was off of the creon r/t the hospitalizations and I think we will re start it. She is not taking the imipramine and her insurance did not cover her simethicone. ROV 3 mos. COUNT INCLUDES THE [facility] Medical History (Updated 09/23/24 @ 11:35 by SALO Yang) Ureteral stone with hydronephrosis Hyperparathyroidism Tinnitus Hearing loss Anxiety and depression Diabetes mellitus, with long-term current use of insulin Urinary, incontinence, stress female Wheezing Vitamin B12 deficiency Occlusion of stent of peripheral artery Personal history of nicotine dependence Chronic low back pain History of CVA (cerebrovascular accident) (~10/2020) History of kidney stones Tubular adenoma of colon COVID-19 vaccine series declined Colitis without complication Myasthenia gravis Pernicious anemia Myasthenia gravis Urge urinary incontinence Microalbuminuria Vitamin D deficiency Hypothyroidism Multinodular thyroid HTN (hypertension) Surgical History History of surgery History of amputation of toe Hx of blood clots Status post biopsy of thyroid gland (~2021) History of colonoscopy History of esophagogastroduodenoscopy (EGD) History of bilateral cataract extraction (~2019) History of parathyroidectomy History of lithotripsy (~2013) History of hernia repair History of hysterectomy (~1984) Family History Father Lung cancer Mother Asthma Diabetes HTN (hypertension) Heart attack Sister FH: mental illness Leukemia Mental health disorder Social History Household Members: None Housing: Apartment Alcohol intake: current Alcohol intake frequency: does not drink Patient Tobacco Use Status: Current someday Tobacco user Tobacco use type: Cigarette Years Smoked: 45 +/- e-Cigarette/Vaping Use: Never Used Advance Directives Date on File: 03/03/22 service: No Current occupational status: disabled Cognitive needs: No Hearing needs: No Vision needs: No Review of Systems Const Denies fatigue, Denies fever(s), Denies night sweats, Denies poor appetite and Denies weight loss ENT Reports Normal hearing present, Denies dental pain, Denies dysphagia, Denies hearing loss, Denies mouth pain, Denies odynophagia, Denies throat swelling, Denies tongue swelling and Reports other (Dentition adequate) Card Reports pedal edema Resp Reports no additional complaints GI Details: Denies abdominal pain, Denies melena, Reports bloating, Denies hematochezia, Denies constipation, Reports GI cramping, Denies dysphagia, Reports excessive flatus, Denies early satiety, Reports heartburn, Denies diarrhea, Reports loose stools, Denies nausea, Denies odynophagia, Denies vomiting and Denies hematemesis Skin/Breast Denies pruritus, Denies lesions, Denies rash, Reports skin swelling and Denies jaundice Neuro Reports Normal hearing present and Denies Abnormal speech present Endo Denies fatigue Aller/Immun Denies throat swelling and Denies tongue swelling Physical Exam Vital Signs: Last Vital Signs Pulse 82 09/23/24 11:29 BP 184/80 H 09/23/24 11:29 BMI result Body Mass Index 24.7 Const General: cooperative, no acute distress, well developed and well groomed Nutritional Appearance: average body habitus and well nourished Orientation/consciousness: oriented to person, oriented to place and oriented to time Limitations: No language barrier and ambulation with walker HEENT Head: Yes normocephalic and Yes atraumatic Eyes General: appearance normal, both eyes and all related structures Pupils: Equal, round and reactive pupils present Neck Neck: Yes normal visual inspection and Yes no lymphadenopathy Thyroid: Thyroid normal Resp Effort & Inspection: normal respiratory effort and able to speak in complete sentences Auscultation: clear to auscultation bilaterally Cardio Rate: regular rate Rhythm: regular rhythm Heart sounds: Normal, physiologic split S2 sound present Peripheral pulses: radial pulses present and posterior tibial pulses present GI Inspection: No distended and No Abdominal panniculus present Palpation (GI): Soft to palpation, nontender, no guarding, not rigid, No hepatosplenomegaly present and Hepatosplenomegaly present Percussion: Yes normal to percussion Auscultation: normal bowel sounds Rectal Exam - Female: deferred Skin General skin exam: no rashes or lesions noted, turgor normal, skin not dry, no jaundice, No spider nevi and no striae Rashes: no rashes Nails: normal Neuro General: oriented to person, oriented to place and oriented to time Cranial nerves: Yes Equal, round and reactive pupils present and Yes Normal hearing present Speech: No Abnormal speech present Extrem Other: weeping through tights right leg General: Yes normal to inspection, No clubbing, No cyanosis and Yes edema Psych Appearance: grossly normal and well kempt Mental Status: mental status grossly normal Speech and movement: Normal speech and movement present Affect: normal affect Attitude: cooperative Thought process: Normal thought process present and not confabulating Thought content: Normal thought content present Insight: Limited insight present (Psych) Judgement: Limited judgement present (Psych) Results Reviewed Results Reviewed: ULTRASOUND OF THE ABDOMEN 02/13/24 FINDINGS: There appears to be a periumbilical hernia. Fascial defect is suspected to measure approximately 6 cm. There is suspicion for herniation of bowel. US/US abdomen limited IMPRESSION: Periumbilical hernia is suspected, however, imaging was significantly limited due to patient body habitus. Further evaluation recommended with CT abdomen/pelvis. CT ABDOMEN AND AND PELVIS 05/31/2024 ADDENDUM ADDENDUM #1 Text communication acknowledged by Karon Puente on 07/04/2024 at 1:43 PM. EXAMINATION: CT ABDOMEN PELVIS WITH IV CONTRAST HISTORY: R10.33 - Periumbilical pain COMPARISON: Comparison is made with the prior examination dated 10/25/2021. Correlation is also made with a limited abdominal ultrasound dated 01/22/2024. FINDINGS: LOWER CHEST: The visualized lung bases are clear. There is no pleural effusion. CARDIOVASCULATURE: The heart is normal in size. There is no pericardial effusion. LIVER: The liver is normal in size and contour. No liver mass is identified. The hepatic and portal veins are patent. GALLBLADDER / BILE DUCTS: The gallbladder is surgically absent. There is no intra or extrahepatic biliary ductal dilatation. SPLEEN: The spleen is normal in size. No focal splenic lesion is identified. PANCREAS: The pancreas is unremarkable in appearance. ADRENAL GLANDS: Within normal limits. KIDNEYS/RETROPERITONEUM: No renal calculi are identified. There is moderate right hydronephrosis and proximal hydroureter to the level of a 7 mm proximal ureteral calculus at the L4 vertebral level. There is no left hydronephrosis. There is a 10 mm cyst at the upper pole of the left kidney. LYMPH NODES: No abdominal or pelvic lymphadenopathy. VASCULATURE: The abdominal aorta demonstrates atherosclerotic calcification, but is normal in caliber. MESENTERY/PERITONEUM: No free fluid. No masses. There is no free intraperitoneal gas. STOMACH: The stomach is unremarkable. SMALL BOWEL: The small bowel is normal in caliber. COLON: The colon is unremarkable. APPENDIX: Normal. URINARY BLADDER/PELVIC ORGANS: The urinary bladder is unremarkable. The patient is status post hysterectomy. BONES / SOFT TISSUES: No umbilical hernia is identified. There is degenerative disc disease of the lower lumbar spine. CT/CT abdomen pelvis w IV con IMPRESSION: 1. No evidence of an umbilical hernia. 2. Moderate right hydroureteronephrosis secondary to a 7 mm proximal ureteral calculus. Assessment & Plan Assessment & Plan (1) Irritable bowel syndrome with diarrhea: Code(s): K58.0 - Irritable bowel syndrome with diarrhea Category: Medical (2) GERD (gastroesophageal reflux disease): Comment: [place] [facility] [place] Code(s): K21.9 - Gastro-esophageal reflux disease without esophagitis Category: Medical (3) Ureteral stone with hydronephrosis: Comment: left 02/23 2020 s.p cystoscopy , right ureteroscopy and ureteral stent placement Code(s): N13.2 - Hydronephrosis with renal and ureteral calculous obstruction Category: Medical (4) Umbilical hernia: Comment: Some question about this diagnosis as it seen on ultrasound but not confirmed on CAT scan. aeb Code(s): K42.9 - Umbilical hernia without obstruction or gangrene Category: Medical (5) DVT (deep venous thrombosis): Code(s): I82.409 - Acute embolism and thrombosis of unspecified deep veins of unspecified lower extremity Category: Medical Qualifiers: Affected thrombotic vein of extremity: tibial Chronicity: acute DVT location: lower extremity Laterality: left Qualified Code(s): I82.442 - Acute embolism and thrombosis of left tibial vein Plan I have started her on Creon try sending simethicone and send a trial of imipramine. Testing shows some conflicting results with ultrasound seeing me to indicate a 6-7 mm umbilical hernia with possible bowel entrapment, cat scan not seeing this hernia, but showing hydronephrosis (this appears to be chronic from her history and) but with a 7 mm renal calculus about the level of L4. SHe had a very bad new health problem of DVT of the bilateral legs and had several vascular surgeries. She also had gangrene of her small toe r/t lack of circulation. She was seen mostly at [facility], but has not been referred to hematology as of this date. I will refer her. Her abd pain has largely subsided. She now has borborymus again and a lot of gas. She was off of the creon r/t the hospitalizations and I think we will re start it. She is not taking the imipramine and her insurance did not cover her simethicone. ROV 3 mos. Orders: Referrals Hematology & Oncology Referral I82.442 - Acute embolism and thrombosis of left tibial vein Medications: New vxyrye-pvommdsd-amdouzb 24,000-76,000 -120,000 unit (Creon) 2 caps PO BID 120 caps 6RF 30 days K58.9 - Irritable bowel syndrome, unspecified Discontinued imipramine HCl Discontinued Reason: Patient no longer taking 10 mg PO BEDTIME 90 tabs 1RF K58.0 - Irritable bowel syndrome with diarrhea Coding Level of Care Code Est Pt Level 3 (65652) Diagnoses Irritable bowel syndrome with diarrhea K58.0 GERD (gastroesophageal reflux disease) K21.9 Ureteral stone with hydronephrosis N13.2 Umbilical hernia K42.9 Acute deep vein thrombosis (DVT) of tibial vein of left lower extremity I82.442 Affected thrombotic vein of extremity: tibial Chronicity: acute DVT location: lower extremity Laterality: left
[2024-09-23 11:29] VITALS: BP 184/80; PULSE 82; BMI 24.7
--- OUTSIDE RECORDS SUMMARY | 2024-09-23 12:23 | XMS_ITS | Encounter Summary ---
Author Organization [facility] Address [address] [facility] [address] [place] [address] Phone Care Team Providers Care Crown Assembly Machine Set Up Mechanic Name Role Phone Sabas De Souza MD Primary Care Provider [phone]- [phone] Encounter Details Date Type Department Care Team ([facility] Contact Info) Description 12/03/2020 Orders Only [facility] [address] [place] [address] Misael Mcneill MD [address] [facility] [address] [place] [address] Persistent proteinuria; Type 2 diabetes [...] Upcoming Encounters Date Type Department Care Team ([facility] Contact Info) Description 10/20/2024 2:45 PM EDT Office Visit [facility] [address] [place] [address] Misael Mcneill MD [address] [facility] [address] [place] [address] documented as of this encounter Visit Diagnoses Diagnosis Persistent proteinuria Type 2 diabetes mellitus with diabetic chronic kidney disease (HCC) Hypertensive disorder documented in this encounter Care Teams Crown Assembly Machine Set Up Mechanic Relationship Specialty Start Date End Date Sabas De Souza MD [facility] [place] [address] PCP - General Internal Medicine 12/24/20 documented as of this encounter
--- OUTSIDE RECORDS SUMMARY | 2024-09-23 12:23 | XMS_ITS | Encounter Summary ---
Author Organization [facility] Address [address] [facility] [address] [place] [address] Phone Care Team Providers Care Associate Professor Of Criminal Justice Name Role Phone Sabas De Souza MD Primary Care Provider [phone]- [phone] Encounter Details Date Type Department Care Team (Late Contact Info) Description 10/28/2021 Telephone [facility] [address] [facility] [address] [place] [address] Misael Mcneill MD [address] [facility] [address] [place] [address] Social History Tobacco Use Types [...] speak with you. She was at the [facility] ER and was told she has kidney stones. She would like to speak with you about this. Please call her back at [phone] Thank you documented in this encounter Plan of Treatment Upcoming Encounters Date Type Department Care Team (Late Contact Info) Description 10/20/2024 2:45 PM EDT Office Visit [facility] the [address] [place] [address] Misael Mcneill MD [address] [facility] [address] [place] [address] documented as of this encounter Visit Diagnoses Not on filedocumented in this encounter Care Teams Associate Professor Of Criminal Justice Relationship Specialty Start Date End Date Sabas De Souza MD [facility] [place] [address] PCP - General Internal Medicine 12/24/20 documented as of this encounter
--- OUTSIDE RECORDS SUMMARY | 2024-09-23 12:23 | XMS_ITS | Patient Health Record ---
Author Organization [facility] Address [address] [facility] [place] [address] Care Team Providers Care Dumper Name Role Phone Ap GODDARD, Bernadette Lyman Primary Care Provider Un available [place] Terri Unavailable [phone] Allergies Allergen (clinical drug ingredient) Drug/Non Drug [...] 25 days from urgent care Not-Taking pyRIDostigmine Raphine ER 180 MG 1 tablet Orally Once [...] Problem Acquired hammer toe of right foot ([id number]) Other hammer toe(s) (acquired), right foot (M20.41) Active confirmed Problem Acquired hammer toe of left foot (8602570155278757) Other hammer toe(s) (acquired), left foot (M20.42) Active confirmed Problem 61175409 Non-pressure ulcer of right lower extremity, limited to breakdown of skin (L97.911) Active confirmed Problem 73787428 Type 2 diabetes mellitus with polyneuropathy (E11.42) Active confirmed Problem [id number] Atherosclerosi s of artery of both lower extremities (I70.203) Active confirmed Problem [id number] 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) Active confirmed Vital Signs Blood pressure diastolic 90 mm Hg 12/15/2023 Height 5ft1in in 12/15/2023 Blood pressure systolic 137 mm Hg 12/15/2023 Weight 140 lbs 12/15/2023 BMI 26.45 kg/m2 12/15/2023 Encounters Encounter Location Date Provider Diagnosis [address] [address] 12/15/2023 Terri Jacobo Atherosclerosis of artery of both lower extremities I70.203 ; Tinea pedis B35.3 and Type 2 diabetes mellitus with polyneuropathy E11.[address] [address] 10/28/2023 [facility] [address] 03/17/2024 Terri Jacobo [address] [address] 04/25/2024 Terri Jacobo [facility] [address] 07/05/2024 Terri Jacobo Assessments Encounter Date Diagnosis (ICD Code) Assessment Notes Treatment Notes Treatment Clinical Notes Section Notes 12/15/2023 Atherosclerosis of artery of both lower extremities (ICD-10 - I70.203) 12/15/2023 Tinea pedis (ICD-10 - B35.3) 12/15/2023 Type 2 diabetes mellitus with polyneuropathy (ICD-10 - E11.42) Plan Of Treatment Next Appt Details Provider Name:Terri ernandez, 10/28/2024 12:45:00 PM, [address] [place], [address], Insurance Providers Payer Name Payer Address Payer Phone Subscriber Number Group Number Insured Name Patient Relationship to Insured Coverage Start Date Coverage End Date [facility] [employer] Claims [address] [place] [address] [phone] [id number] Magy Trejo Self - patient is the [...]
--- OUTSIDE RECORDS SUMMARY | 2024-09-23 12:23 | XMS_ITS ---
Author Organization [facility] Address [address] [place] [address] Care Team Providers Care Dice Spotter Name Role Phone Ap GODDARD, Bernadette Lyman Primary Care Provider Un available Terri Jacobo Unavailable [phone] REASON FOR VISIT day cx Encounters Encounter Location Date Provider Diagnosis [address] [address] 07/05/2024 Terri Jacobo Plan Of Treatment Next Appt Details Provider Name:Terri ernandez, 10/28/2024 12:45:00 PM, [address] [place] [address], [phone], Progress Notes * Dannie FITZGERALDOB: 6 (69 yo F)Acc No.[id number]:07/05/2024 Patient:?Magy FITZGERALD :1955???Age:69 Y???Sex:Female Address:[address] [place] [address] [address], [place], [address] * true * Date:? Generated for Printi ana/Wade/eTransmitting on:?09/23/2024 12:23 PM EDT
--- OUTSIDE RECORDS SUMMARY | 2024-09-23 12:23 | XMS_ITS ---
[facility] Address [address] [facility] [place] [address] Care Team Providers Care Wire Stripping Machine Operator Name Role Phone Ap GODDARD, Bernadette Lyman Primary Care Provider Un available Terri Jacobo Unavailable [phone] Medications Medication SIG (Take, Route, Frequency, Duration) [...] a day for 30 day(s) Active pyRIDostigmine [place] ER 180 MG 1 tablet Orally Once a day for 30 day(s) Active Cholecalciferol 25 MCG (1000 UT) 1 capsule Orally Once a day for 30 day(s) Active oxyBUTYnin Chloride 5 MG 1 tablet Orally Twice a day for 30 day(s) Active Potassium Active Encounters Encounter Location Date Provider Diagnosis [facility] [address] [address] 07/05/2024 Terri Jacobo Plan Of Treatment Next Appt Details Provider Name:Terri ernandez, 10/28/2024 12:45:00 PM, [address] [place] [address], [phone], Progress Notes * Dannie FITZGERALDOB: (69 yo F)Acc No.[id number]:07/05/2024 Progress Note Patient:?Magy FITZGERALD Provider:?Terri Jacobo DPM :1955???Age:69 Y???Sex:Female D ate:07/05/2024 Address:[address] [place], [place] [phone] Pcp:Jesus Hernandez Subjective: * Chief Complaints: * [...] Orally Once a day , Taking pyRIDostigmine [place] ER 180 MG Tablet Extended Release 1 [...] Jacobo DPM Date:? Generated for Janessa perez/Wade/Jamee on:?09/23/2024 12:23 PM EDT History and Physical Notes * HPI (History of Present Illness) Category Sub-Category Detail Notes Category Not es At Risk footcare Pt States Last PCP Visit: Date: 4
--- OUTSIDE RECORDS SUMMARY | 2024-09-23 12:23 | XMS_ITS | Clinical Summary ---
Author Organization [facility] Address [address] [facility] [address] [place] [address] Phone Care Team Providers Care External Grinder Tool Name Role Phone Sabas De Souza MD Primary Care Provider +1- [phone] Allergies Active Allergy Reactions Criticality Noted Date [...] mouth 2 (two) times a day Active cholecalcifero l (VITAMIN D-3) 25 MCG (1000 UT) tablet Take 1 tablet by mouth 1 (one) time each day Active ezetimibe (ZETIA) 10 MG tablet TAKE 1 TABLET BY MOUNT ONCE DAILY 10/21/19 21 Active dicyclomine (BENTYL) 20 MG tablet Take 20 mg by mouth 4 times a day 10/21/19 21 Active mesalamine (LIALDA) 1.2 g EC tablet [...] Take 10 mg by mouth every night 01/15/20 21 Active levothyroxine (SYNTHROID, LEVOTHROID) 137 MCG tablet Take 137 mcg by mouth 1 (one) time each day 02/17/20 21 Active mycophenolate (CELLCEPT) 500 MG tablet Take by mouth 2 (two) times a day Active oxyCODONE (ROXICODONE) 5 MG immediate release tablet TAKE 1 TABLET BY MOUTH EVERY 12 HOURS FOR 7 DAYS NEEDED FOR PAIN Active hydroCHLOROthi azide 25 MG tablet TAKE 1 TABLET BY MOUTH 1 TIME EACH DAY. 90 tablet 3 03/07/20 24 Active amLODIPine (NORVASC) 5 MG tablet TAKE 2 TABLETS BY MOUTH 1 TIME EACH DAY. 180 tablet 2 05/31/20 24 Active potassium citrate 10 MEQ (1080 MG) CR tablet TAKE 1 TABLET BY MOUTH TWICE A DAY IN THE MORNING AND IN THE EVENING WITH MEALS. DO NOT CRUSH/CHEW/SP LIT. 180 tablet 09/23/19 25 Active potassium citrate 10 MEQ (1080 MG) CR tablet TAKE 1 TABLET BY MOUTH 2X/DAY IN THE MORNING AND IN THE EVENING WITH MEALS. DO NOT CRUSH/CHEW/SP LIT. 180 tablet 06/22/19 25 025 Discontinued Active Problems Problem Noted Date Diagnosed Date Hypercalcemia 10/02/2022 History of calculus of kidney 12/05/2020 Chronic kidney disease, stage 2 (mild) Type 2 diabetes mellitus wit h diabetic [...] 09/21/2024 Refill [facility] [address] [place] [address] Joe Howard MD 08/25/2024 Office Communication [facility] [address] [place] [address] [address] [place] [address] Maia Leon from Last 3 Months Immunizations Immunization Administration Dates Next Due Influenza TIV (IM) [...] Visit [facility] [address] [place], [place] [address] Misael Mcneill MD [address] [facility] [address] [place] [address] Health Maintenance Due Date Last Done Comments Breast Cancer Screening 1955 Colorectal Cancer Screening: Annual FOBT 2005 Colorectal Cancer Screening: Colonoscopy 2005 Colorectal Cancer Screening: Sigmoidoscopy 2005 Diabetes: Ophthalmology Exam 07/16/2020 Diabetes: Pedal Pulse Checked 07/16/2020 Diabetes: Sensory Foot Exam 07/16/2020 Diabetes: Visual Foot Exam 07/16/2020 Pneumococcal Vaccine: 50+ Years (3 of 3 - PCV) 02/28/2022 02/28/2021, 05/22/2016, 04/01/2012 Diabetes: Hemoglobin A1C 05/14/2023 02/11/2023, 11/0 11/2019 Influenza Vaccine (Season Ended) 2025 05/17/2015, 06/01/2014, 04/07/2013, Additional history exists Pneumococcal Vaccine: Peds (0 to 5 Years) and At-Risk Patients (6 to 49 Years) Discontinued 02/28/2021, 05/22/2016, 04/01/2012 Hepatitis B Vaccine Aged Out No longe [...] Most Recently Relevant to Health Maintenance [facility] ([id number]) Care Teams External Grinder Tool Relationship Specialty Start Date End Date Sabas De Souza MD [address] [place], [place] PCP - General Internal Medicine 12/24/20
--- OUTSIDE RECORDS SUMMARY | 2024-09-23 12:24 | XMS_ITS | Encounter Summary ---
Author Organization [facility] Address [address] [facility] 200 [place] [address] Phone Care Team Providers Care Hydraulic Mechanic Name Role Phone Sabas De Souza MD Primary Care Provider +1- [phone] Encounter Details Date Type Department Care Team (Late Contact Info) Description 10/31/2021 Documentation Only [facility] [address] [facility] 200 [place] [address] Misael Mcneill MD [address] [address] Social History Tobacco Use Types [...] Visit [facility] [address] [place] [address] Misael Mcneill MD [address] [address] documented as of this encounter Visit Diagnoses Not on filedocumented in this encounter Care Teams Hydraulic Mechanic Relationship Specialty Start Date End Date Sabas De Souza MD [facility] [place] [address] PCP - General Internal Medicine 12/24/20 documented as of this encounter
--- OUTSIDE RECORDS SUMMARY | 2024-09-23 12:24 | XMS_ITS | Encounter Summary ---
Author Organization [facility] Address [address] [facility] 200 [place] [address] Phone Care Team Providers Care Hand Candle Dipper Name Role Phone Sabas De Souza MD Primary Care Provider +1- [phone] Reason for Visit * Reason Comments Med Refill Encounter Details Date Type Department Care Team (Late Contact Info) Description 09/21/2024 Refill [facility] [address] [place] [address] Joe Hoawrd MD 8[address] [facility] [address] [place] [address] Social History Tobacco Use Types [...] Office Visit [facility] [address] [place] [address] Misael Mcneill MD 0[address] [facility] 204 [place] [address] documented as of this encounter Visit Diagnoses Not on filedocumented in this encounter Care Teams Hand Candle Dipper Relationship Specialty Start Date End Date Sabas De Souza MD [facility] [place] [address] PCP - General Internal Medicine 12/24/20 documented as of this encounter
--- OUTSIDE RECORDS SUMMARY | 2024-09-23 12:24 | XMS_ITS | Data Portability ---
Author Organization [employer] Address [address] [place] [address] Care Team Providers Care Child Psychometrist Name Role Phone [facility] Referring Provider [phone] Assessment Encounter Date Assessment Date Assessment LastModified by Organization Details LastModified Time 01/13/2022 01/13/2022 I have reviewed and agree with the assessment and plan as documented by the wood car builder. I provided real-time medical direction for this [...] Diagnosis Note 3085 Itzel Mott MD [facility] [address] [place] [address] 01/13/2022 20:36:58 02/19/2022 12:51:59 Chronic deep venous thrombosis of lower extremity 6963698844 89477 I82.509 Health Concerns Section Related Observation LastModified by Organization Detai ls LastModified Time None Recorded Concern Status LastModified by Organization Details LastModified Time None Recorded Advance Directives Directive None Recorded Payers Encounter Date Sequence Insurance Name Policy Number Policy Nicolas Covered Member ID Nicolas Member ID Guarantor Name 01/13/2022 1 [facility] - DOS PRIOR TO 2022 - DUAL ELIGIBLE (MEDICARE REPLACEMENT/ADV ANTAGE - HMO) Magy Fitzgerald [id number] Magy Fitzgerald Notes Date Note Type Note Provider Name and Address Organization Details Recorded Time 01/13/2022 text/html [facility] Nursing Assessment: Chief Complaints: Pain PMH: Diabetes Allergies: Unknown Comments: CUTTER APPRENTICE HAND concern for eval L foot pain and 5th toe discoloration increased pain this week decline ED at this time deny fevers await surgery poor historian Itzel Mott MD 30 [facility],[address]LO[address], [place], [address], [employer] 01/13/2022 20:48:35 OBGyn Episode No OBEpisode recorded.
--- OUTSIDE RECORDS SUMMARY | 2024-09-23 12:24 | XMS_ITS ---
Author Organization [facility] Address [address] [place] [address] Care Team Providers Care Foot Gatherer Name Role Phone Ap GODDARD, Bernadette Lyman Primary Care Provider Un available Terri Jacobo Unavailable [phone] Encounters Encounter Location Date Provider Diagnosis [address] [address] 05/10/2024 Terri Jacobo Plan Of Treatment Next Appt Details Provider Name:Terri ernandez, 10/28/2024 12:45:00 PM, [address] [place] [address], [address], Progress Notes * Dannie FITZGERALDOB: (69 yo F)Acc No.[id number]:05/10/2024 Progress Note Patient:?Magy FITZGERALD Provider:?Terri Jacobo DPM :1955???Age:69 Y???Sex:Female D ate:05/10/2024 Address:[address] [place] [address] [address], [place], [place] Pcp:Jesus Hernandez Subjective: * Chief Complaints: * [...]
== END 2024-09-23 12:21 | disposition home or self-care (01) ==
LOC: HO.HGI 11:23
PROVIDERS: PCP Internal Medicine; Visit Provider Nurse Practitioner
DX: K58.0 Irritable bowel syndrome with diarrhea (principal); K21.9 Gastro-esophageal reflux disease without esophagitis; N13.2 Hydronephrosis with renal and ureteral calculous obstruction; K42.9 Umbilical hernia without obstruction or gangrene; I82.442 Acute embolism and thrombosis of left tibial vein
CPT/HCPCS: 99213

== ENCOUNTER → 2024-09-23 11:23 | Outpatient (BNVA) | payer OTHER, SELFPAY | PROVIDERS: PCP Internal Medicine; Visit Provider Nurse Practitioner | DX: K21.9 Gastro-esophageal reflux disease without esophagitis (principal); K58.0 Irritable bowel syndrome with diarrhea; K42.9 Umbilical hernia without obstruction or gangrene; N13.2 Hydronephrosis with renal and ureteral calculous obstruction; I82.442 Acute embolism and thrombosis of left tibial vein | CPT/HCPCS: 99212 ==

== ENCOUNTER 2024-10-11 10:14 | Outpatient (REF) | payer OTHER, SELFPAY ==
--- OUTSIDE RECORDS SUMMARY | 2024-10-11 11:41 | XMS_ITS | Clinical Summary ---
Author Organization [facility] Address [address] [facility] [address] [place] [address] Phone Care Team Providers Care Senior Sustainability Advisor Name Role Phone Sabas De Souza MD Primary Care Provider +1- [phone] Allergies Active Allergy Reactions Criticality Noted Date [...] wall 09/04/2016 01/15/2021 Depressive disorder 09/04/2016 01/16/20 Chronic back pain 09/04/2016 01/15/2021 Asthma 09/04/2016 01/15/2021 Hypertensive disorder 09/04/20162020 Type 2 diabetes mellitus 09/04/201608/2020 Type 1 diabetes mellitus 01/30/201408/2020 Osteoporosis 09/05/2013 01/15/2021 Essential hypertension 09/05/201301/15 Encounters Date Type Department Care Team Description 09/21/2024 Refill [facility] [address] [place] [address] Joe Howard MD 08/25/2024 Office Communication [facility] [address] [place] [address] Maia Leon from Last 3 Months Immunizations [...] Visit [facility] [address] [place] [address] Misael Mcneill MD [address] [facility] 204 [place] [address] Health Maintenance Due Date Last Done Comments [...] Hemoglobin A1C 05/14/2023 02/11/2023, 1111/2019 Influenza Vaccine (Season Ended) 2025 05/17/2015, 06/01/2014, [...] Most Recently Relevant to Health Maintenance Insurance [facility] [place] [address] ([id number]) [facility] ([id number]) [place] [phone] Care Teams Senior Sustainability Advisor Relationship Specialty Start Date End Date Sabas De Souza MD [address] [place] [address] PCP - General Internal Medicine 12/24/20
--- OUTSIDE RECORDS SUMMARY | 2024-10-11 11:42 | XMS_ITS | Data Portability ---
Author Organization [employer] [place] [facility] Address [address] [place] [address] Care Team Providers Care Women'S Studies Professor Name Role Phone [facility] Referring Provider [phone] Assessment Encounter Date Assessment Date Assessment LastModified by Organization Details LastModified Time 01/13/2022 01/13/2022 I have reviewed and agree with the assessment and plan as documented by the vehicle maintenance supervisor. I provided real-time medical direction for this [...] Code Diagnosis Note 3085 Itzel Mott MD [facility] [address] [place] [address] 01/13/2022 20:36:58 02/19/2022 12:51:59 Chronic deep venous thrombosis of lower extremity [id number] 51715 I82.509 Health Concerns Section Related Observation LastModified by Organization Detai ls LastModified Time None Recorded Concern Status LastModified by Organization Details LastModified Time None Recorded Advance Directives Directive None Recorded Payers Encounter Date Sequence Insurance Name Policy Number Policy Nicolas Covered Member ID Nicolas Member ID Guarantor Name 01/13/[address] [facility] - DOS PRIOR TO 2022 - DUAL ELIGIBLE (MEDICARE REPLACEMENT/ADV ANTAGE - HMO) Magy Fitzgerald [id number] Magy Fitzgerald Notes Date Note Type Note Provider Name and Address Organization Details Recorded Time 01/13/2022 text/html [facility] Nursing Assessment: Chief Complaints: Pain PMH: Diabetes Allergies: Unknown Comments: DIRECTOR OF HEALTHCARE SYSTEMS concern for eval L foot pain and 5th toe discoloration increased pain this week decline ED at this time deny fevers await surgery poor historian Itzel Mott MD 30 [facility],[address]LO[address], [place], [address], [employer] 01/13/2022 20:48:35 OBGyn Episode No OBEpisode recorded.
--- OUTSIDE RECORDS SUMMARY | 2024-10-11 11:42 | XMS_ITS | Encounter Summary ---
Author Organization [facility] Address [address] [facility] 200 [place] [address] Phone Care Team Providers Care Retail Loan Officer Name Role Phone Sabas De Souza MD Primary Care Provider +1- [phone] Encounter Details Date Type Department Care Team ([facility] Contact Info) Description 12/03/2020 Orders Only [facility] [address] [place] [address] Misael Mcneill MD 4964 [facility] 204 [place] [address] Persistent proteinuria; Type 2 diabetes mellitus with [...] Upcoming Encounters Date Type Department Care Team ([facility] Contact Info) Description 10/20/2024 2:45 PM EDT Office Visit [facility] [address] [place] [phone] Misael Mcneill MD 5972 [facility] 204 [place] [address] documented as of this encounter Visit Diagnoses Diagnosis Persistent proteinuria Type 2 diabetes mellitus with diabetic chronic kidney disease (HCC) Hypertensive disorder documented in this encounter Care Teams Retail Loan Officer Relationship Specialty Start Date End Date Sabas De Souza MD [facility] [place] [address] PCP - General Internal Medicine 12/24/20 documented as of this encounter
--- OUTSIDE RECORDS SUMMARY | 2024-10-11 11:42 | XMS_ITS | Patient Health Record ---
Author Organization [facility] Address [address] [place] [address] Care Team Providers Care Manager Study Name Role Phone Ap GODDARD, Bernadette Lyman Primary Care Provider Un available [place] Terri Unavailable [phone] Allergies Allergen (clinical drug ingredient) Drug/Non Drug [...] 25 days from urgent care Not-Taking pyRIDostigmine [facility] 180 MG 1 tablet Orally Once [...] Problem Acquired hammer toe of right foot (4142326362901921) Other hammer toe(s) (acquired), right foot (M20.41) Active confirmed Problem Acquired hammer toe of left foot (3583085689491950) Other hammer toe(s) (acquired), left foot (M20.42) Active confirmed Problem 78725012 Non-pressure ulcer of right lower extremity, limited to breakdown of skin (L97.911) Active confirmed Problem 10311599 Type 2 diabetes mellitus with polyneuropathy (E11.42) Active confirmed Problem 80052054508334020 Atherosclerosi s of artery of both lower extremities (I70.203) Active confirmed Problem 45737300919795722 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 [address] 03/17/2024 Terri Jacobo [address] [address] 04/25/2024 Terri Jacobo [facility] [address] 07/05/2024 Terri Jacobo Assessments Encounter Date Diagnosis (ICD Code) Assessment Notes Treatment Notes Treatment Clinical Notes Section Notes 12/15/2023 Atherosclerosis of artery of both lower extremities (ICD-10 - I70.203) 12/15/2023 Tinea pedis (ICD-10 - B35.3) 12/15/2023 Type 2 diabetes mellitus with polyneuropathy (ICD-10 - E11.42) Plan Of Treatment Next Appt Details Provider Name:Terri ernandez, 10/28/2024 12:45:00 PM, [address] [place], [address], Insurance Providers Payer Name Payer Address Payer Phone Subscriber Number Group Number Insured Name Patient Relationship to Insured Coverage Start Date Coverage End Date [facility] [employer] Claims [address] [place] [address] [phone] [id number] Magy Trejo Self - patient is the [...]
--- OUTSIDE RECORDS SUMMARY | 2024-10-11 11:42 | XMS_ITS | Encounter Summary ---
Author Organization [facility] Address [address] [facility] 200 [place] [address] Phone Care Team Providers Care Assistant County Attorney Name Role Phone Sabas De Souza MD Primary Care Provider +1- [phone] Encounter Details Date Type Department Care Team (Late Contact Info) Description 10/28/2021 Telephone [facility] [address] [facility] 200 [place] [address] Misael Mcneill MD 4402 [facility] 204 [place] [address] Social History Tobacco Use Types Packs/Day Years [...] speak with you. She was at the [facility] ER and was told she has kidney stones. She would like to speak with you about this. Please call her back at [phone] Thank you documented in this encounter Plan of Treatment Upcoming Encounters Date Type Department Care Team (Late st Contact Info) Description 10/20/2024 2:45 PM EDT Office Visit [facility] [address] [place] [address] Misael Mcneill MD 9688 [facility] 204 [place] [address] documented as of this encounter Visit Diagnoses Not on filedocumented in this encounter Care Teams Assistant County Attorney Relationship Specialty Start Date End Date Sabas De Souza MD [facility] [place] [address] PCP - General Internal Medicine 12/24/20 documented as of this encounter
--- OUTSIDE RECORDS SUMMARY | 2024-10-11 11:42 | XMS_ITS ---
Author Organization [facility] Address 81 [facility] [place] [address] Care Team Providers Care Composition Molder Name Role Phone Ap GODDARD, Bernadette Lyman Primary Care Provider Un available Terri Jacobo Unavailable [phone] Medications Medication SIG (Take, Route, Frequency, Duration) [...] a day for 30 day(s) Active pyRIDostigmine [place] [facility] 180 MG 1 tablet Orally Once a day for 30 day(s) Active Cholecalciferol 25 MCG (1000 UT) 1 capsule Orally Once a day for 30 day(s) Active oxyBUTYnin Chloride 5 MG 1 tablet Orally Twice a day for 30 day(s) Active Potassium Active Encounters Encounter Location Date Provider Diagnosis [facility] [address] [address] 07/05/2024 Terri Jacobo Plan Of Treatment Next Appt Details Provider Name:Terri ernandez, 10/28/2024 12:45:00 PM, [address] [place] [address], [address], Progress Notes * Dannie FITZGERALDOB: (69 yo F)Acc No.[id number]:07/05/2024 Progress Note Patient:?Magy FITZGERALD Provider:?Terri Jacobo DPM :1955???Age:69 Y???Sex:Female D ate:07/05/2024 Address:[address] [place], [place] [address] Pcp:Jesus Hernandez Subjective: * Chief Complaints: * [...] Orally Once a day , Taking pyRIDostigmine [facility] [facility] 180 MG Tablet Extended Release 1 [...] Jacobo DPM Date:? Generated for Janessa perez/Wade/Rebekahitting on:?10/11/2024 11:41 AM EDT History and Physical Notes * HPI (History of Present Illness) Category Sub-Category Detail Notes Category Not es At Risk footcare Pt States Last PCP Visit: Date: 4
--- OUTSIDE RECORDS SUMMARY | 2024-10-11 11:42 | XMS_ITS ---
Author Organization [facility] Address [address] [place] [address] Care Team Providers Care Medical Office Representative Name Role Phone Ap GODDARD, Bernadette Lyman Primary Care Provider Un available Terri Jacobo Unavailable [phone] Encounters Encounter Location Date Provider Diagnosis [address] [address] 05/10/2024 Terri Jacobo Plan Of Treatment Next Appt Details Provider Name:Terri ernandez, 10/28/2024 12:45:00 PM, [address] [place] [address], [address], Progress Notes * Dannie FITZGERALDOB: (69 yo F)Acc No.[id number]:05/10/2024 Progress Note Patient:?Magy FITZGERALD Provider:?Terri Jacobo DPM :1955???Age:69 Y???Sex:Female D ate:05/10/2024 Address:[address] [place] [address] [address], [place], [place] Pcp:Jesus Hernandez Subjective: * Chief Complaints: * ??? * Medical History:? Objective: * Vitals:? Assessment: Plan: * Treatment: * Images: * The named appointment provid er may or may not be the originator of this progress note, and it is not deemed complete until electronically signed by the appointment provider. Sign off status: Pending * Provider:?Terri Jacobo DPM Date:? Generated for Janessa perez/Wade/Jamee on:?10/11/2024 11:42 AM EDT
--- OUTSIDE RECORDS SUMMARY | 2024-10-11 11:42 | XMS_ITS ---
Author Organization [facility] Address [address] [place] [address] Care Team Providers Care Grocery Deliverer Name Role Phone Ap GODDARD, Bernadette Lyman Primary Care Provider Un available Terri Jacobo Unavailable [phone] REASON FOR VISIT day cx Encounters Encounter Location Date Provider Diagnosis [address] [address] 07/05/2024 Terri Jacobo Plan Of Treatment Next Appt Details Provider Name:Terri ernandez, 10/28/2024 12:45:00 PM, [address] [place], [address], Progress Notes * Dannie FITZGERALDOB: 6 (69 yo F)Acc No.[id number]:07/05/2024 Patient:?Magy FITZGERALD :1955???Age:69 Y???Sex:Female Address:[address] [place] [address] [address], [place], [address] * true * Date:? Generated for Printi ana/Wade/eTransmitting on:?10/11/2024 11:42 AM EDT
--- OUTSIDE RECORDS SUMMARY | 2024-10-11 11:42 | XMS_ITS | Encounter Summary ---
Author Organization [facility] Address [address] [facility] 200 [place] [address] Phone Care Team Providers Care Seamless Hosiery Knitter Name Role Phone Sabas De Souza MD Primary Care Provider +1- [phone] Encounter Details Date Type Department Care Team (Late Contact Info) Description 10/31/2021 Documentation Only [facility] [address] [facility] 200 [place] [address] Misael Mcneill MD [address] [address] Social History Tobacco Use Types [...] Visit [facility] [address] [place] [phone] Misael Mcneill MD [address] [address] documented as of this encounter Visit Diagnoses Not on filedocumented in this encounter Care Teams Seamless Hosiery Knitter Relationship Specialty Start Date End Date Sabas De Souza MD [facility] [place] [address] PCP - General Internal Medicine 12/24/20 documented as of this encounter
[2024-10-11 13:06] LABS: MANUAL DIFF FLAG NO
[2024-10-11 13:23] LABS: Basophils Absolute Auto 0.1 X10*3/uL (0.0-0.2); Basophils Percent Auto 0.5 % (0-2); Eosinophils Absolute Auto 0.2 X10*3/uL (0.0-0.4); Eosinophils Percent Auto 1.8 % (0-4); Hemoglobin 11.3 g/dl (12.0-16.0); Imm Gran Abs Auto 0.04 X10*3/uL (0.00-0.03); Imm Gran Pct Auto 0.4 % (0.0-0.4); Lymphocytes Absolute Auto 2.4 X10*3/uL (1.2-4.9); Lymphocytes Percent Auto 23.2 % (20-40); Mean Corpuscular HGB Conc 29.7 g/dl (31.0-35.0); Mean Corpuscular Hemoglobin 22.9 pg (27.0-33.0); Mean Corpuscular Volume 77.1 fL (80.0-98.0); Mean Platelet Volume 10.4 fL (9.4-12.3); Monocytes Absolute Auto 0.8 X10*3/uL (0.1-1.2); Neutrophils Percent Auto 66.1 % (45-73); Platelet Count 483 X10*3/uL (160-400); Red Blood Count 4.93 X10*6/uL (4.20-5.50); Red Cell Distribution Width 17.2 % (11.0-16.0); White Blood Count 10.5 X10*3/uL (4.8-10.8)
[2024-10-11 14:00] LABS: Alanine Aminotransferase 12 U/L (0-31); Albumin Level 4.3 g/dL (3.5-5.0); Alkaline Phosphatase 72 U/L (39-117); Anion Gap 11 (12-20); Aspartate Amino Transferase 19 U/L (5-31); Bilirubin Total 0.3 mg/dL (0.0-1.0); Blood Urea Nitrogen 18 mg/dL (9-16); Calcium 9.9 mg/dL (8.4-10.2); Carbon Dioxide 28 mmol/L (22-29); Chloride 104 mmol/L (96-108); Cholesterol 227 mg/dL (<200); Estimated Glomerular Filt Rate > 60; Free T4 (Free Thyroxine) 1.48 ng/dL (0.71-1.85); Glucose Fasting 119 mg/dL (60-99); HDL Cholesterol 52 mg/dL (>40); LDL Cholesterol Calculated 149 mg/dL (<100); Potassium 3.5 mmol/L (3.3-5.1); Sodium 139 mmol/L (135-145); Thyroid Stimulating Hormone 1.57 uIU/mL (0.32-4.0); Total Protein 7.7 g/dL (6.5-8.0); Triglycerides 133 mg/dL (<150); Vitamin D 25-OH Total 58.3 ng/mL (>30)
[2024-10-11 14:08] LABS: Vitamin B12 241 pg/mL (200-900)
== END 2024-10-11 10:15 | disposition home or self-care (01) ==
LOC: HO.HMGCLDS 10:14
PROVIDERS: PCP Internal Medicine; Visit Provider Internal Medicine
DX: F41.9 Anxiety disorder, unspecified (principal); F32.A Depression, unspecified; E78.5 Hyperlipidemia, unspecified; I73.9 Peripheral vascular disease, unspecified; N39.3 Stress incontinence (female) (male); E04.2 Nontoxic multinodular goiter; E89.0 Postprocedural hypothyroidism; I10 Essential (primary) hypertension; D51.0 Vitamin B12 deficiency anemia due to intrinsic factor deficiency; E55.9 Vitamin D deficiency, unspecified
CPT/HCPCS: 36415; 80053; 80061; 82306; 82607; 82746; 84439; 84443; 85025

== ENCOUNTER → 2024-11-01 13:14 | Outpatient (BNV) | payer OTHER, SELFPAY | PROVIDERS: PCP Internal Medicine; Referring Provider Nurse Practitioner; Visit Provider Internal Medicine Medical Oncology | DX: I82.90 Acute embolism and thrombosis of unspecified vein (principal) | CPT/HCPCS: 99204 ==

== ENCOUNTER 2024-11-08 09:11 | Outpatient (AMB) | payer OTHER, SELFPAY ==
--- NOTE | 2024-11-08 09:21 | AM.OFFWIN_ITS ---
Intake Vital Signs 3 11/08/24 09:22 Height 5 ft 1 in Weight 136 lb BMI 25.7 BP 136/76 Blood Pressure Location Rt brachial Position Sitting Pulse 78 Pulse Source Pulse Oximeter Pulse Oximetry (%) 97 Oxygen Delivery Method Room Air Intake Visit Reasons: EP personal concerns to discuss Patient Tobacco Use Status: Former Tobacco user Allergies Penicillins [PCN] Allergy (Unknown, Verified 11/08/24 09:22) RASH pregabalin [From Lyrica] Adverse Reaction (Severe, Verified 11/08/24 09:22) skin peeling gabapentin Adverse Reaction (Unknown, Verified 11/08/24 09:22) Dizziness Do you need a note to return to daycare/school/sports/work: No HPI HPI Comments 2 History of Present Illness0 Details 69 y/o Female patient who presents to [facility] walk in clinic with c/o feeling numbness, tingling and pain inside bladder/Vagina for a week now. Reports h/o Hematuria and kidney stones, and [facility]. Prior Hysterectomy. H/o Urge Urinary incontinence and frequency. Reports pain with sitting down, walking and standing. Reports vaginal discharge and foul odor. Reports washing her vaginal frequently, because she feels uncomfortable due to smell. [facility] Medical History Ureteral stone with hydronephrosis Hyperparathyroidism Tinnitus Hearing loss Anxiety and depression Diabetes mellitus, with long-term current use of insulin Urinary, incontinence, stress female Wheezing Vitamin B12 deficiency Occlusion of stent of peripheral artery Personal history of nicotine dependence Chronic low back pain History of CVA (cerebrovascular accident) (~10/2020) History of kidney stones Tubular adenoma of colon COVID-19 vaccine series declined Colitis without complication Myasthenia gravis Pernicious anemia Myasthenia gravis Urge urinary incontinence Microalbuminuria Vitamin D deficiency Hypothyroidism Multinodular thyroid HTN (hypertension) Surgical History History of surgery History of amputation of toe Hx of blood clots Status post biopsy of thyroid gland (~2021) History of colonoscopy History of esophagogastroduodenoscopy (EGD) History of bilateral cataract extraction (~2019) History of parathyroidectomy History of lithotripsy (~2013) History of hernia repair History of hysterectomy (~1984) Family History Father Lung cancer Mother Asthma Diabetes HTN (hypertension) Heart attack Sister FH: mental illness Leukemia Mental health disorder Social History (Updated 11/01/24 @ 13:42 by Meredith Vasquez) Household Members: None Housing: Apartment Alcohol intake: current Alcohol intake frequency: does not drink Patient Tobacco Use Status: Former Tobacco user Tobacco use type: Cigarette Years Smoked: 45 +/- e-Cigarette/Vaping Use: Never Used Advance Directives Date on File: 03/03/22 service: No Current occupational status: disabled Cognitive needs: No Hearing needs: No Vision needs: No Review of Systems Const All systems reviewed & are unremarkable except as noted in HPI and below Physical Exam Vital Signs: Last Vital Signs Pulse 78 11/08/24 09:22 BP 136/76 11/08/24 09:22 Pulse Ox 97 11/08/24 09:22 Oxygen Delivery Method Room Air 11/08/24 09:22 BMI result Body Mass Index 25.7 Const General: no acute distress Orientation/consciousness: patient oriented x3 Other: Bladder and pelvic TTP. General: Yes no CVA tenderness External Female Exam: normal appearance of the urethra Speculum Exam - Vagina: normal vaginal discharge, erythematous, no lesions, No vaginal bleeding and tenderness Speculum Exam - Cervix: Cervix absent Bimanual exam- vagina & uterus: uterus absent OB/external & speculum: No vaginal bleeding Female genitals images: 2 1. Vaginal prolapse present. Back/Spine/Pelvis Back: no CVA tenderness Neuro General: patient oriented x3 and moves all extremities Psych Speech and movement: Normal speech and movement present Results AMB Urinalysis, Automated 2 UA Leukoctes 0 Aldo/uL Last Edit by Jamil Perez CMA on 11/08/24 10:03 UA Nitrite Negative Last Edit by Jamil Perez CMA on 11/08/24 10:03 UA Urobilinogen 0.2 mg/dL Last Edit by Jamil Perez CMA on 11/08/24 10 :03 UA Protein 6.0 mg/dL Last Edit by Jamil Perez CMA on 11/08/24 10:03 UA pH 0 Last Edit by Jamil Perez CMA on 11/08/24 10:03 UA Blood 0 Hossein/uL Last Edit by Jamil Perez CMA on 11/08/24 10:03 UA Specific [place] 1.015 Last Edit by Jamil Perez CMA on 11/08/24 10:03 UA Ketone Negative Last Edit by Jamil Perez CMA on 11/08/24 10:03 UA Bilirubin 0 mg/dL Last Edit by Jamil Perez CMA on 11/08/24 10:03 UA Glucose 0 mg/dL Last Edit by Jamil Perez CMA on 11/08/24 10:03 Results Reviewed Results Reviewed: Laboratory Last Values Urine pH (Auto) 0 11/08/24 09:33 Specific [place] (Auto) 1.015 11/08/24 09:33 Urine Protein (Auto) 6.0 mg/dL 11/08/24 09:33 Glucose (UA)(Auto) 0 mg/dL 11/08/24 09:33 Urine Ketones (Auto) Negative 11/08/24 09:33 Urine Blood (Auto) 0 Hossein/uL 11/08/24 09:33 Urine Nitrite (Auto) Negative 11/08/24 09:33 Urine Bilirubin (Auto) 0 mg/dL 11/08/24 09:33 Urine Urobilinogen (Auto) 0.2 mg/dL 11/08/24 09:33 Leukocyte Esterase (Auto) 0 Aldo/uL 11/08/24 09:33 Assessment & Plan Assessment & Plan (1) Spasm of bladder: Code(s): N32.89 - Other specified disorders of bladder Plan: Patient is diagnosed with Bladder Spasm. Previously was taking Oxybutyin 2023. Pt sees Urology [facility] - will have her f/u them. Ordered Oxybutyin for 2 weeks. Orders: Orders 2 AMB Urinalysis Automated Today Alba Birch PA-C Z13.9 - Encounter for screening, unspecified Medications: New 2 oxybutynin chloride ER 10 mg PO DAILY 2 weeks 14 tabs 0RF Anahi Austin NP N32.89 - Other specified disorders of bladder Discontinued 2 oxybutynin chloride ER Discontinued Reason: Patient no longer taking 15 mg PO DAILY 90 tabs 1RF Coding Level of Care Code Est Pt Level 4 (57275) Diagnoses Spasm of bladder N32.89 Time Spent (min) 20
[2024-11-08 09:22] VITALS: BP 136/76; PULSE 78; O2SAT 97; BMI 25.7
--- OUTSIDE RECORDS SUMMARY | 2024-11-08 09:42 | XMS_ITS | Clinical Summary ---
Author Organization [facility] Address [address] [place] [address] [place] [address] Phone Care Team Providers Care Pool Manager Name Role Phone Sabas De Souza MD Primary Care Provider +1- [phone] Allergies Active Allergy Reactions Criticality Noted Date [...] Encounters Date Type Department Care Team Description 10/20/2024 2:45 PM EDT Office Visit [facility] [address] [place] [address] Misael Mcneill MD History of calculus of kidney (Primary Dx); Essential hypertension; Type 2 diabetes mellitus with diabetic chronic kidney disease (HCC) 09/21/2024 Refill [facility] [address] [place] [address] Joe [place] MD 08/25/2024 Office Communication [facility] [address] [place] [address] [facility] from Last 3 Months Immunizations Immunization Administration Dates Next Due Influenza TIV (IM) 05/17/2015,06/01/2014,2 013,04/01/2012 Pfizer SARS-COV-2 05/06/2021,04/15/2021 Pneumococcal Polysaccharide 02/28/2021, [...] Sign Reading Time Taken Comments Blood Pressure 136/66 10/20/2024 2:56 PM EDT Pulse 84 10/20/2024 2:56 PM EDT Temperature - - Respiratory Rate - - Oxygen Saturation 99% 09/15/2023 1:30 PM EDT Inhaled Oxygen Concentration - - Weight 61.2 kg (135 lb) 10/20/2024 2:56 PM EDT Height 157.5 cm (5' 2 ) 04/14/2022 3:55 PM EDT Body Mass Index 24.69 04/14/2022 3:55 PM EDT Plan of Treatment Upcoming Encounters Date Type Department Care Team (Late st Contact Info) Description 10/19/2025 2:15 PM EDT Office Visit [facility] [address] [place] [address] Misael Mcneill MD [address] [facility] [address] [place] [address] Health Maintenance Due Date Last [...] Procedure Name Priority Date/Time Associated Diagnosis Comments ALT EXT LABS Routine 10/11/2024 EXT RESULT ENTRY Routine 02/11/2023 from Last 3 Months or Most Recently Relevant to Health Maintenance Results * (ABNORMAL) ALT EXT LABS (10/11/2024) WBC 10.5(A) 3.3 - 10.0 10*3/ML Red Blood Cell Count 4.93 Hemoglobin 11.3(A) 12.0 - 16.0 Hematocrit 38.0 36.0 - 46.0 Platelets 438(A) 150 - 399 10*3/UL BUN 18 4 - 21 mg/dL Creatinine 0.63 0.50 - 1.10 mg/dL Albumin 4.3 3.5 - 5.0 g/dL Calcium 9.9 8.7 - 10.7 mg/dL Sodium 139 137 - 147 Potassium 3.5 3.4 - 5.5 Chloride 104.0 99.0 - 108.0 10/11/2024 Historical Provider MD LAB BLOOD ORDERABLES Angie l Result * (ABNORMAL) EXT RESULT ENTRY (02/11/2023) Hemoglobin A1C 6.3(A) 4.0 - 6.0 02/11/2023 us Historical Provider MD LAB BLOOD ORDERABLES Angie l Result from Last 3 Months or Most Recently Relevant to Health Maintenance Insurance Healthnet [facility] ([id number]) [facility] ([id number]) Care Teams Pool Manager Relationship Specialty Start Date End Date Sabas De Souza MD [address] [place] [address] PCP - General Internal Medicine 12/24/20
== END 2024-11-08 10:38 | disposition home or self-care (01) ==
PROVIDERS: PCP Internal Medicine; Visit Provider Nurse Practitioner Family
DX: Z13.9 Encounter for screening, unspecified (principal); N32.89 Other specified disorders of bladder

== ENCOUNTER → 2024-11-08 09:11 | Outpatient (BNVA) | payer OTHER, SELFPAY | PROVIDERS: PCP Internal Medicine; Visit Provider Nurse Practitioner Family | DX: N32.9 Bladder disorder, unspecified (principal) | CPT/HCPCS: 81003; 99212 ==

== ENCOUNTER 2024-12-19 10:29 | Outpatient (AMB) | payer OTHER, SELFPAY ==
--- OUTSIDE RECORDS SUMMARY | 2024-12-19 11:20 | XMS_ITS | Encounter Summary ---
Author Organization [facility] Address [address] [place] [address] Care Team Providers Care Stem Threshing Machine Operator Name Role Phone Unavailable Primary Care Provider Unavailabl e Encounter Details Date Type Department Care Team (Late st Contact Info) Description 10/24/2024 Lab Requisition [facility] - Main Lab [address] [facility] [place] [address] Sasha Storm PA [address] [place] [address] Gross hematuria Social History Tobacco Use Types Packs/Day Years Used Date Smoking Tobacco: Never Assessed Comments Unknown Sex and Gender Information Value Date Recorded Sex Assigned at Not on file Legal Sex Female 4:52 AM EST Gender Identity Not on file Sexual Orientation Not on file documented as of this encounter Plan of Treatment Not on file documented as of this encounter Procedures Procedure Name Priority Date/Time Associated Diagnosis Comments AP OUTSIDE CONSULT Routine 10/18/2024 12 :00 AM EDT Gross hematuria documented in this encounter Results * Anatomic pathology outside consult (10/18/2024 12:00 AM EDT) Final Diagnosis A. Urine, Voided, [id number]: Negative for high grade urothelial carcinoma. Results of UroVysion fluorescence in situ hybridization (FISH) testing: CEP3: Normal CEP7: Normal CEP17: Normal LSI 9p21: Normal Interpretation: Normal profile Controls stained appropriately. Note: The results are intended as a screening device and should be interpreted in association with other clinical and pathological findings. 11/04/2024 2:06 PM EDT [facility] Clinical Information Gross hematuria R31.0 Urine Cytology/FISH (now) 11/04/2024 2:06 PM EDT [facility] Gross Description A. Urine, Voided, [id number]: Received one ThinPrep slide for cytology and one ThinPrep slide for UroVysion FISH 11/04/2024 2:06 PM EDT [facility] Disclaimer Unless otherwise specified, all tissue is 10% NB formalin fixed and paraffin embedded. Technical pathology services provided by [facility] at [address] [place] [address] [address], [place] [address] (CLIA #[id number]/Екатерина Elliott MD, [employer]) 11/04/2024 2:06 PM EDT [facility] Tissue Urine specimen from urethra / Unknown 10/18/2024 10/24/2024 9:17 AM EDT us Sasha TRIANA LAB PATHOLOGY ORDERABLES Final Result [facility] [address] [place] [address], documented in this encounter Visit Diagnoses Diagnosis Gross hematuria documented in this encounter
--- OUTSIDE RECORDS SUMMARY | 2024-12-19 11:20 | XMS_ITS | Clinical Summary ---
Author Organization [facility] Address [address] [place] [address] [place] [address] Phone Care Team Providers Care Retail Grocer Name Role Phone Sabas De Souza MD Primary Care Provider +1- [phone] Allergies Active Allergy Reactions Criticality Noted Date [...] Visit [facility] [address] [place] [address] Misael Mcneill MD History of calculus of kidney (Primary Dx); Essential hypertension; Type 2 diabetes mellitus with diabetic chronic kidney disease (HCC) 09/21/2024 Refill [facility] [address] [place] [address] Joe Howard MD from Last 3 Months Immunizations Immunization Administration [...] Visit [facility] [address] [place] [address] Misael Mcneill MD [address] [facility] [address] [place] [address] Health Maintenance Due Date Last [...] A1C 05/14/2023 02/11/2023, 11/0 11/2019 Influenza Vaccine (#1) 2025 5, 06/01/2014, 04/07/2013, Additional history exists Pneumococcal Vaccine: [...] 104.0 99.0 - 108.0 10/11/2024 Historical Provider LAB BLOOD ORDERABLES Angie l Result * (ABNORMAL) EXT RESULT ENTRY (02/11/2023) Hemoglobin A1C 6.3(A) 4.0 - 6.0 02/11/2023 Historical Provider LAB BLOOD ORDERABLES Angie l Result from Last 3 Months or Most Recently Relevant to Health Maintenance Insurance [facility] Healthnet [facility] ([id number]) [facility] ([id number]) Care Teams Retail Grocer Relationship Specialty Start Date End Date Sabas De Souza MD [address] [facility] [place] [address] PCP - General Internal Medicine 12/24/20
--- OUTSIDE RECORDS SUMMARY | 2024-12-19 11:21 | XMS_ITS | Data Portability ---
Author Organization [facility] Address [address] [place] [address] Care Team Providers Care Dry House Attendant Name Role Phone [facility] Referring Provider Assessment Encounter Date Assessment Date Assessment LastModified by Organization Details LastModified Time 01/13/2022 01/13/2022 I have reviewed and agree with the assessment and plan as documented by the manager ship. I provided real-time medical direction for this [...] in Arterial blood by Pulse oximetry Systolic And Diastolic Provider Name and Address Organization Details Last Updated DateTime 18 /min 98.9 [degF] 87 /min 98 % 98 % 139/89 mm[Hg] Not Available [employer] - production 20:37:06 [...] Note 3085 Itzel Mott MD [facility] [address] [place] [phone] 01/13/2022 20:36:58 02/19/2022 12:51:59 Chronic deep venous thrombosis of lower extremity [id number] I82.509 Health Concerns Section Related Observation LastModified by Organization Detai ls LastModified Time None Recorded Concern Status LastModified by Organization Details LastModified Time None Recorded Advance Directives Directive None Recorded Payers Insurance Date Sequence Insurance Name Policy Number Policy Nicolas Covered Member ID Nicolas Member ID Guarantor Name 08/17/2023 1 [facility] [employer] - DOS PRIOR TO 2022 - DUAL ELIGIBLE (MEDICARE REPLACEMENT/AD VANTAGE - HMO) Magy Fitzgerald [id number] Magy Fitzgerald 08/17/2023 1 [facility] [employer] - DOS ON OR AFTER 2022 - DUAL ELIGIBLE - [facility] OPTIONS AND ONE CARE (MEDICARE REPLACEMENT/AD VANTAGE - HMO) Magy Fitzgerald [id number] Magy Fitzgerald Notes Date Note Type Note Provider Name and Address Organization Details Recorded Time 01/13/2022 text/html [facility] Nursing Assessment: Chief Complaints: Pain PMH: Diabetes Allergies: Unknown Comments: LIBRARY MEDIA SPECIALIST concern for eval L foot pain and 5th toe discoloration increased pain this week decline ED at this time deny fevers await surgery poor historian Itzel Mott MD [address] [facility], [place], [address], [employer] 01/13/2022 20:48:35 OBGyn Episode No OBEpisode recorded.
[2024-12-19 11:41] VITALS: BP 130/82; PULSE 75; TEMP 35.3; O2SAT 99; BMI 26.4
--- NOTE | 2024-12-19 11:41 | MHC.PC.OV ---
Vital Signs 12/19/24 11:41 Height 5 ft 1 in Weight 140 lb BMI 26.4 BP 130/82 Blood Pressure Location Rt brachial Position Sitting Pulse 75 Pulse Source Pulse Oximeter Temp 95.5 F L Temp Source Oral Pulse Oximetry (%) 99 Oxygen Delivery Method Room Air Intake Visit Reasons: follow up Allergies Penicillins (PCN) Allergy (Unknown, Verified 12/19/24 11:56) RASH pregabalin (From Lyrica) Adverse Reaction (Severe, Verified 12/19/24 11:56) skin peeling gabapentin Adverse Reaction (Unknown, Verified 12/19/24 11:56) Dizziness Medication List - Last Reconciled 12/19/24 by Bernadette De Souza MD amlodipine 5 mg PO BID apixaban 5 mg PO BID aspirin 81 mg PO DAILY atorvastatin 40 mg PO DAILY [bed rail As directed NS] blood pressure test kit-medium As directed to monitor blood pressure blood sugar diagnostic (FreeStyle Lite Strips) qid blood-glucose meter (FreeStyle Lite Meter kit) As directed blood-glucose meter (FreeStyle Lite Meter kit) As directed blood-glucose sensor (FreeStyle Oren 3 Plus Sensor device) As directed use in place of freestyle 3 due to shortage of FS3 blood-glucose,various exceptionalities teacher,cont (FreeStyle Oren 3 [place]) As directed chlorthalidone 25 mg PO DAILY duloxetine 60 mg PO DAILY hydrochlorothiazide 25 mg PO DAILY incontinence pad, liner, disp As directed-use up to 4 per day insulin glargine (Lantus Solostar U-100 Insulin) 12 units (0.12 mL) subcut BEDTIME 30 days lancets (FreeStyle Lancets) 4x daily levothyroxine 125 mcg PO DAILY levothyroxine 112 mcg PO DAILY lidocaine 5% 1 patch topical DAILY metformin 1,000 mg PO BID 30 days metoprolol succinate ER 25 mg (1/2 x 50 mg) PO DAILY mycophenolate mofetil 1,000 mg PO TID@0800,1300,1900 nut.tx.gluc.intol,lac-free,soy (Glucerna oral liquid) 1 ea PO TID oxybutynin chloride ER 10 mg PO DAILY 2 weeks oxycodone mg PO pen needle, diabetic once daily pyridostigmine bromide 180 mg PO TID [shower bench without back As directed] Tobacco use date assessed: 12/19/24 Fall risk assessment: No Falls in past year Last assessed Fall Risk: 12/19/24 Dental Screening Dental Screen Date: 12/19/24 Did you have a dental visit in the last 12 months?: Yes Did you have a dental problem in the last 6 months where you did not have access to dental care?: No Was dental information given to patient?: Patient has dentist [facility] Medical History (Updated 11/08/24 @ 10:37 by Anahi Austin NP) Spasm of bladder Ureteral stone with hydronephrosis Hyperparathyroidism Tinnitus Hearing loss Anxiety and depression Diabetes mellitus, with long-term current use of insulin Urinary, incontinence, stress female Wheezing Vitamin B12 deficiency Occlusion of stent of peripheral artery Personal history of nicotine dependence Chronic low back pain History of CVA (cerebrovascular accident) (~10/2020) History of kidney stones Tubular adenoma of colon COVID-19 vaccine series declined Colitis without complication Myasthenia gravis Pernicious anemia Myasthenia gravis Urge urinary incontinence Microalbuminuria Vitamin D deficiency Hypothyroidism Multinodular thyroid HTN (hypertension) Surgical History (Updated 11/01/24 @ 13:55 by Massiel New MD) History of surgery History of amputation of toe Hx of blood clots Status post biopsy of thyroid gland (~2021) History of colonoscopy History of esophagogastroduodenoscopy (EGD) History of bilateral cataract extraction (~2019) History of parathyroidectomy History of lithotripsy (~2013) History of hernia repair History of hysterectomy (~1984) Family History Father Lung cancer Mother Asthma Diabetes HTN (hypertension) Heart attack Sister FH: mental illness Leukemia Mental health disorder Social History (Updated 11/01/24 @ 13:42 by Meredith Vasquez) Household Members: None Housing: Apartment Alcohol intake: current Alcohol intake frequency: does not drink Patient Tobacco Use Status: Former Tobacco user Tobacco use type: Cigarette Years Smoked: 45 +/- e-Cigarette/Vaping Use: Never Used Advance Directives Date on File: 03/03/22 service: No Current occupational status: disabled Cognitive needs: No Hearing needs: No Vision needs: No Questionnaire Thrive Questionnaire Date Thrive assessed: 09/21/24 APARNA-7 AMB Questionnaire APARNA-7 Date APARNA - 7 assessed: 10/16/23 Source: Developed by DrsShirley De Luna, Bertha Robbins, Gallo Leiva and colleagues, with an educational jud from [employer]. Physical exam (Primary Care) Vital Signs: Last Vital Signs Temp 95.5 F L 12/19/24 11:41 Pulse 75 12/19/24 11:41 BP 130/82 12/19/24 11:41 Pulse Ox 99 12/19/24 11:41 Oxygen Delivery Method Room Air 12/19/24 11:41 BMI result Body Mass Index 26.4 Tobacco/Smoking Status: Tobacco use Status Tobacco use date assessed 12/19/24 12/19/24 11:46 Patient Tobacco Use Status Former Tobacco user 12/19/24 11:46 Tobacco use type Cigarette 12/19/24 11:46 e-Cigarette/Vaping Use Never Used 12/19/24 11:46 Thrive Assessment: Date of Thrive Assessment Date Thrive assessed 09/21/24 12/19/24 11:46 Results AMB Hemoglobin A1c AMB Hemoglobin A1c 7.1 % Last Edit by Gretchen Jones CMA on 12/19/24 12:02 Results Reviewed Results Reviewed: Laboratory Last Values Hgb A1c (Clinic) 7.1 % (4.0-6.0) H 12/19/24 11:54 Coding Diagnoses Hypertension, unspecified type I10 Hypertension type: unspecified 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 Diabetes mellitus, with long-term current use of insulin E11.9; Z79.4 HLD (hyperlipidemia) E78.5 History of vitamin D deficiency Z86.39 Assessment & Plan Assessment & Plan (1) HTN (hypertension): Code(s): I10 - Essential (primary) hypertension Category: Medical Qualifiers: Hypertension type: unspecified Qualified Code(s): I10 - Essential (primary) hypertension (2) Hypothyroidism: Code(s): E03.9 - Hypothyroidism, unspecified Category: Medical Qualifiers: Hypothyroidism type: postablative Qualified Code(s): E89.0 - Postprocedural hypothyroidism (3) Diabetes mellitus, with long-term current use of insulin: Code(s): E11.9 - Type 2 diabetes mellitus without complications; Z79.4 - alf (current) use of insulin Category: Medical (4) HLD (hyperlipidemia): Code(s): E78.5 - Hyperlipidemia, unspecified Category: Medical (5) History of vitamin D deficiency: Code(s): Z86.39 - Personal history of other endocrine, nutritional and metabolic disease Orders: Orders Hemoglobin A1c Today E11.9 - Type 2 diabetes mellitus without complications, E78.5 - Hyperlipidemia, unspecified, E89.0 - Postprocedural hypothyroidism, I10 - Essential (primary) hypertension, Z79.4 - terminal make up operator (current) use of insulin, Z86.39 - Personal history of other endocrine, nutritional and metabolic disease Alanine Aminotransferase Today E11.9 - Type 2 diabetes mellitus without complications, E78.5 - Hyperlipidemia, unspecified, E89.0 - Postprocedural hypothyroidism, I10 - Essential (primary) hypertension, Z79.4 - terminal make up operator (current) use of insulin, Z86.39 - Personal history of other endocrine, nutritional and metabolic disease Lipid Panel Today E11.9 - Type 2 diabetes mellitus without complications, E78.5 - Hyperlipidemia, unspecified, E89.0 - Postprocedural hypothyroidism, I10 - Essential (primary) hypertension, Z79.4 - terminal make up operator (current) use of insulin, Z86.39 - Personal history of other endocrine, nutritional and metabolic disease Thyroid Stimulating Hormone Today E11.9 - Type 2 diabetes mellitus without complications, E78.5 - Hyperlipidemia, unspecified, E89.0 - Postprocedural hypothyroidism, I10 - Essential (primary) hypertension, Z79.4 - alf (current) use of insulin, Z86.39 - Personal history of other endocrine, nutritional and metabolic disease Free T4 (Free Thyroxine) Today E11.9 - Type 2 diabetes mellitus without complications, E78.5 - Hyperlipidemia, unspecified, E89.0 - Postprocedural hypothyroidism, I10 - Essential (primary) hypertension, Z79.4 - terminal make up operator (current) use of insulin, Z86.39 - Personal history of other endocrine, nutritional and metabolic disease AMB Hemoglobin A1c Today Z13.9 - Encounter for screening, unspecified Microalbumin, Random (w Creat) Today E11.9 - Type 2 diabetes mellitus without complications, E78.5 - Hyperlipidemia, unspecified, E89.0 - Postprocedural hypothyroidism, I10 - Essential (primary) hypertension, Z79.4 - terminal make up operator (current) use of insulin, Z86.39 - Personal history of other endocrine, nutritional and metabolic disease Basic Metabolic Panel Fasting Today E11.9 - Type 2 diabetes mellitus without complications, E78.5 - Hyperlipidemia, unspecified, E89.0 - Postprocedural hypothyroidism, I10 - Essential (primary) hypertension, Z79.4 - alf (current) use of insulin, Z86.39 - Personal history of other endocrine, nutritional and metabolic disease Aspartate Amino Transferase Today E11.9 - Type 2 diabetes mellitus without complications, E78.5 - Hyperlipidemia, unspecified, E89.0 - Postprocedural hypothyroidism, I10 - Essential (primary) hypertension, Z79.4 - terminal make up operator (current) use of insulin, Z86.39 - Personal history of other endocrine, nutritional and metabolic disease Vitamin D 25-OH Total Today E11.9 - Type 2 diabetes mellitus without complications, E78.5 - Hyperlipidemia, unspecified, E89.0 - Postprocedural hypothyroidism, I10 - Essential (primary) hypertension, Z79.4 - terminal make up operator (current) use of insulin, Z86.39 - Personal history of other endocrine, nutritional and metabolic disease
== END 2024-12-19 12:10 | disposition home or self-care (01) ==
LOC: HO.HMCC 10:29
PROVIDERS: PCP Internal Medicine; Visit Provider Internal Medicine
DX: Z13.9 Encounter for screening, unspecified (principal)

== ENCOUNTER → 2024-12-19 10:29 | Outpatient (BNVA) | payer OTHER, SELFPAY | PROVIDERS: PCP Internal Medicine; Visit Provider Internal Medicine | DX: E11.51 Type 2 diabetes mellitus with diabetic peripheral angiopathy without gangrene (principal); M81.0 Age-related osteoporosis without current pathological fracture; I10 Essential (primary) hypertension; E78.5 Hyperlipidemia, unspecified; E89.0 Postprocedural hypothyroidism; Z86.39 Personal history of other endocrine, nutritional and metabolic disease; Z79.4 Long term (current) use of insulin; Z79.01 Long term (current) use of anticoagulants; Z86.73 Personal history of transient ischemic attack (TIA), and cerebral infarction without residual deficits | CPT/HCPCS: 83036; 99212 ==

== ENCOUNTER 2024-12-27 11:50 | Outpatient (REF) | payer OTHER, SELFPAY ==
--- OUTSIDE RECORDS SUMMARY | 2024-12-27 13:10 | XMS_ITS | Encounter Summary ---
Author Organization [facility] Address [address] [place] [address] Care Team Providers Care Woodworking Machine Setter Name Role Phone Unavailable Primary Care Provider Unavailabl e Encounter Details Date Type Department Care Team (Late st Contact Info) Description 10/24/2024 Lab Requisition [facility] - Main Lab [address] [facility] [place] [address] Sasha Storm PA [address] [place] [address] Gross hematuria Social History Tobacco Use Types [...] AM EDT) Final Diagnosis A. Urine, Voided, [id number]: Negative for high grade urothelial carcinoma. Results of UroVysion fluorescence in situ hybridization (FISH) testing: CEP3: Normal CEP7: Normal CEP17: Normal LSI 9p21: Normal Interpretation: Normal profile Controls stained appropriately. Note: The results are intended as a screening device and should be interpreted in association with other clinical and pathological findings. 11/04/2024 2:06 PM EDT [facility] Clinical Information Gross hematuria R31.0 Urine Cytology/FISH (now) 11/04/2024 2:06 PM EDT [facility] Gross Description A. Urine, Voided, [id number]: Received one ThinPrep slide for cytology and one ThinPrep slide for UroVysion FISH 11/04/2024 2:06 PM EDT [facility] Disclaimer Unless otherwise specified, all tissue is 10% NB formalin fixed and paraffin embedded. Technical pathology services provided by [facility] at [address] [place] [address] [address], [place] [address] (CLIA #[id number]/Екатерина Elliott MD, Junior Network Engineer) 11/04/2024 2:06 PM EDT [facility] Tissue Urine specimen from urethra / Unknown 10/18/2024 10/24/2024 9:17 AM EDT us Sasha [facility] LAB PATHOLOGY ORDERABLES Final Result [facility] [address] [place] [address], documented in this encounter Visit Diagnoses Diagnosis Gross hematuria documented in this encounter
--- OUTSIDE RECORDS SUMMARY | 2024-12-27 13:10 | XMS_ITS | Data Portability ---
Author Organization [facility] Address [address] [place] [address] Care Team Providers Care Client Support Administrator Name Role Phone [facility] Referring Provider Assessment Encounter Date Assessment Date Assessment LastModified by Organization Details LastModified Time 01/13/2022 01/13/2022 I have reviewed and agree with the assessment and plan as documented by the flaking roll operator. I provided real-time medical direction for this [...] Code Diagnosis Note 3085 Itzel Mott MD [facility] [address] [place] [phone] 0 01/13/2022 20:36:58 02/19/2022 12:51:59 Chronic deep venous thrombosis of lower extremity [id number] I82.509 Health Concerns Section Related Observation LastModified by Organization Detai ls LastModified Time None Recorded Concern Status LastModified by Organization Details LastModified Time None Recorded Advance Directives Directive None Recorded Payers Insurance Date Sequence Insurance Name Policy Number Policy Nicolas Covered Member ID Nicolas Member ID Guarantor Name 08/17/2023 1 [facility] - DOS PRIOR TO 2022 - DUAL ELIGIBLE (MEDICARE REPLACEMENT/AD VANTAGE - HMO) Magy Fitzgerald [id number] Magy Fitzgerald 08/17/2023 1 [facility] - DOS ON OR AFTER 2022 - DUAL ELIGIBLE - ALF OPTIONS AND ONE CARE (MEDICARE REPLACEMENT/AD VANTAGE - HMO) Magy Fitzgerald [id number] Magy Fitzgerald Notes Date Note Type Note Provider Name and Address Organization Details Recorded Time 01/13/2022 text/html [facility] Nursing Assessment: Chief Complaints: Pain PMH: Diabetes Allergies: Unknown 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
--- OUTSIDE RECORDS SUMMARY | 2024-12-27 13:10 | XMS_ITS | Clinical Summary ---
Author Organization [facility] Address [address] [place] [address] [place] [address] Phone Care Team Providers Care Exercise Equipment Specialist Name Role Phone Sabas De Souza MD Primary Care Provider [phone] Allergies Active Allergy Reactions Criticality Noted Date [...] CR tablet TAKE 1 TABLET BY MOUTH IN THE MORNING AND EVENING WITH MEALS DO NOT CRUSH/CHEW/SP LIT 180 tablet 12/27/19 25 Active potassium citrate 10 MEQ (1080 MG) CR tablet TAKE 1 TABLET BY MOUTH TWICE A DAY IN THE MORNING AND IN THE EVENING WITH MEALS. DO NOT CRUSH/CHEW/SP LIT. 180 tablet 09/23/19 25 025 Discontinued Active Problems Problem Noted [...] Encounters Date Type Department Care Team Description 12/24/2024 Refill [facility] [address] [place] [address] Ambrosio Brewer MD 10/20/2024 2:45 PM EDT Office Visit [facility] [address] [place] [address] Misael Mcneill MD History of calculus of kidney (Primary Dx); Essential hypertension; Type 2 diabetes mellitus with diabetic chronic kidney disease (HCC) from Last 3 Months Immunizations Immunization Administration [...] Visit [facility] [address] [place] [address] Misael Mcneill MD [address] [facility] [address] [place] [address] Health Maintenance Due Date Last [...] 05/22/2016, 04/01/2012 Diabetes: Hemoglobin A1C 05/14/2023 02/11/2023, 11/11/2019 Influenza Vaccine (#1) 2025 5, 06/01/2014, 04/07/2013, [...] 6.3(A) 4.0 - 6.0 02/11/2023 Historical Provider MD LAB BLOOD ORDERABLES Angie l Result from Last 3 Months or Most Recently Relevant to Health Maintenance [place] [address] [employer] [facility] ([id number]) [facility] ([id number]) Care Teams Exercise Equipment Specialist Relationship Specialty Start Date End Date Sabas De Souza MD 1960 [place] [address] PCP - General Internal Medicine 12/24/20
--- OUTSIDE RECORDS SUMMARY | 2024-12-27 13:10 | XMS_ITS | Patient Health Record ---
Author Organization [facility] Address [address] [facility] [place] [address] Care Team Providers Care Mercury Washer Name Role Phone Ap GODDARD, Bernadette Lyman Primary Care Provider Un available [place] Terri Unavailable [phone] Allergies Allergen (clinical drug ingredient) Drug/Non Drug Allergy documented on EMR Reaction Allergy Type Onset Date Status gabapentin Gabapentin Unknown Drug Allergy Activ e Penicillin Unknown Drug Allergy Active Reason For Referral No Information Medications Medication SIG (Take, Route, Frequency, Duration) Notes Start Date End Date Status Clotrimazole-Betamethason e 1-0.05 % APPLY TO AFFECTED AREA ON FEET TWICE A DAY; Duration: 30 Active Potassium Active amLODIPine Besylate 5 MG 1 tablet Orally Once a day; Duration: 30 day(s) Active Bactrim DS 800-160 MG 1 tablet Orally every 12 hrs; Duration: 5 days 09/16/2022 Not-Taking Levothyroxine Sodium 137 MCG 1 tablet in the morning on an empty stomach Orally Once a day; Duration: 30 day(s) Active Ciclopirox Olamine 0.77 % 1 application to affected area Externally to feet Twice a day; Duration: 30 days Not-Taking Extra Depth Orthopedic Shoes [...] Once a day; Duration: 30 day(s) Active oxyCODONE ER Not-Darshan ing Rosuvastatin Calcium 40 MG 1 tablet Orally Once a day; Duration: 30 day(s) Active Bactrim DS 800-160 MG 1 tablet Orally every 12 hrs; Duration: 10 day(s) 06/03/2023 Not-Taking metFORMIN HCl 1000 MG 1 tablet with a meal Orally Once a day; Duration: 30 day(s) Active Meloxicam 15 MG as directed Orally Once a day; Duration: 25 days from urgent care Not-Taking pyRIDostigmine [place] ER 180 MG 1 tablet Orally Once a day; Duration: 30 day(s) Active Bactrim 09/22/22 from Urgent care Not-Taking Metoprolol Succinate ER 25 MG Oral; Duration: 90 Active Cholecalciferol 25 MCG (1000 UT) 1 capsule Orally Once a day; Duration: 30 day(s) Active Atorvastatin Calcium 80 MG 1 tablet Orally Once a day; Duration: 30 day(s) Not-Taking oxyBUTYnin Chloride 5 MG 1 tablet Orally Twice a day; Duration: 30 day(s) Active hydroCHLOROthiazide 25 MG 1 tablet in e morning Orally Once a day; Duration: 30 day(s) Not-Taking Immunizations Vaccine Route Administration [...] Problem Acquired hammer toe of right foot (1019450151998445) Other hammer toe(s) (acquired), right foot (M20.41) Active confirmed Problem Acquired hammer toe of left foot (3898920375090592) Other hammer toe(s) (acquired), left foot (M20.42) Active confirmed Problem Non-pressure ulc er of right lower extremity, limited to breakdown of skin (L97.911) Active confirmed Problem Polyneuropathy due to type 2 diabetes mellitus ([id number]) Type 2 diabetes mellitus with polyneuropathy (E11.42) Active confirmed Problem Bilateral atherosclerosis of arteries of lower limbs (disorder) (85211726838326446 ) Atherosclerosis of artery of both lower extremities (I70.203) Active confirmed Problem Neuropathic ulce r of right foot with fat layer exposed (L97.512) Active confirmed Encounters Encounter Location Date Provider Diagnosis [facility] [address] 03/17/2024 Terri Jacobo [facility] [address] 04/25/2024 Terri Jacobo [facility] [address] 07/05/2024 Terri Jacobo Plan Of Treatment Next Appt Details Provider Name:Terri ernandez, 12/28/2024 02:00:00 PM, [address] [place] [address], [phone], Insurance Providers Payer Name Payer Address Payer Phone Subscriber Number Group Number Insured Name Patient Relationship to Insured Coverage Start Date Coverage End Date [facility] [employer] Claims [address] [place] [address] [id number] Magy Trejo Self - patient is the [...]
[2024-12-27 14:12] LABS: Hemoglobin A1C 179.7288 umol/L; Total Hemoglobin (HGBA1C) 3125.8738 umol/L
[2024-12-27 14:24] LABS: Alanine Aminotransferase 14 U/L (0-31); Anion Gap 10 (12-20); Aspartate Amino Transferase 23 U/L (5-31); Blood Urea Nitrogen 16 mg/dL (9-16); Calcium 9.7 mg/dL (8.4-10.2); Carbon Dioxide 29 mmol/L (22-29); Chloride 106 mmol/L (96-108); Cholesterol 264 mg/dL (<200); Estimated Glomerular Filt Rate > 60; HDL Cholesterol 50 mg/dL (>40); Potassium 3.5 mmol/L (3.3-5.1); Sodium 141 mmol/L (135-145); Triglycerides 176 mg/dL (<150)
[2024-12-27 14:51] LABS: Free T4 (Free Thyroxine) 1.10 ng/dL (0.71-1.85); Thyroid Stimulating Hormone 0.53 uIU/mL (0.32-4.0)
[2024-12-27 14:59] LABS: Microalbum/Creatinine Ratio Ur 74.0 ug/mg cr (<30)
== END 2024-12-27 11:51 | disposition home or self-care (01) ==
LOC: HO.HMGCLDS 11:50
PROVIDERS: PCP Internal Medicine; Visit Provider Internal Medicine
DX: I10 Essential (primary) hypertension (principal); E11.9 Type 2 diabetes mellitus without complications; E78.5 Hyperlipidemia, unspecified; Z79.4 Long term (current) use of insulin; E89.0 Postprocedural hypothyroidism; Z86.39 Personal history of other endocrine, nutritional and metabolic disease
CPT/HCPCS: 36415; 80048; 80061; 82043; 82306; 82570; 83036; 84439; 84443; 84450; 84460; 99212

== ENCOUNTER 2024-12-27 12:30 | Outpatient (AMB) | payer OTHER, SELFPAY ==
--- NOTE | 2024-12-27 12:32 | A.OFFVIS_ITS ---
Vital Signs 12/27/24 12:41 Height 5 ft 1 in Weight 141 lb 8.588 oz BMI 26.7 BP 154/83 H Blood Pressure Location Rt brachial Position Sitting Pulse 82 Intake Visit Reasons: 3 month f/u IBS Intake Note: Patient here for 3m follow up IBS. Reports improvement with Creon. Patient c/o belly inflammation. Ppap Coordinator Required: No Accompanied by: Felicia Marks RESEARCH QUALITY ASSURANCE SPECIALIST Allergies Penicillins (PCN) Allergy (Unknown, Verified 12/27/24 12:47) RASH pregabalin (From Lyrica) Adverse Reaction (Severe, Verified 12/27/24 12:47) skin peeling gabapentin Adverse Reaction (Unknown, Verified 12/27/24 12:47) Dizziness HPI HPI 3 month f/u IBS: Details: Assessment & Plan (1) Irritable bowel syndrome with diarrhea: Code(s): K58.0 - Irritable bowel syndrome with diarrhea Category: Medical (2) GERD (gastroesophageal reflux disease): Comment: sees [facility]- September Code(s): K21.9 - Gastro-esophageal reflux disease without esophagitis Category: Medical (3) Ureteral stone with hydronephrosis: Comment: left 02/23 2020 s.p cystoscopy , right ureteroscopy and ureteral stent placement Code(s): N13.2 - Hydronephrosis with renal and ureteral calculous obstruction Category: Medical (4) Umbilical hernia: Comment: Some question about this diagnosis as it seen on ultrasound but not confirmed on CAT scan. aeb Code(s): K42.9 - Umbilical hernia without obstruction or gangrene Category: Medical (5) DVT (deep venous thrombosis): Code(s): I82.409 - Acute embolism and thrombosis of unspecified deep veins of unspecified lower extremity Category: Medical Qualifiers: Affected thrombotic vein of extremity: tibial Chronicity: acute DVT location: lower extremity Laterality: left Qualified Code(s): I82.442 - Acute embolism and thrombosis of left tibial vein Plan I have started her on Creon try sending simethicone and send a trial of imipramine. Testing shows some conflicting results with ultrasound seeing me to indicate a 6-7 mm umbilical hernia with possible bowel entrapment, cat scan not seeing this hernia, but showing hydronephrosis (this appears to be chronic from her history and) but with a 7 mm renal calculus about the level of L4. She had a very bad new health problem of DVT of the bilateral legs and had several vascular surgeries. She also had gangrene of her small toe r/t lack of circulation. She was seen mostly at [facility], but has not been referred to hematology as of this date. I will refer her. Her abd pain has largely subsided. She now has borborymus again and a lot of gas. She was off of the creon r/t the hospitalizations and I think we will re start it. She is not taking the imipramine and her insurance did not cover her simethicone. ROV 3 mos. Orders: Referrals Hematology & Oncology Referral I82.442 - Acute embolism and thrombosis of left tibial vein Medications: New bcuhot-[id number]-lrecndk 24,000-76,000 -120,000 unit (Creon) 2 caps PO BID 120 caps 6RF 30 days K58.9 - Irritable bowel syndrome, unspecified Discontinued imipramine HCl Discontinued Reason: Patient no longer taking 10 mg PO BEDTIME 90 tabs 1RF K58.0 - Irritable bowel syndrome with diarrhea TODAYS VISIT [place] then had to be seen in our ER for lack of circulation. She is upset because they had to make surgical scars to correct the situation. She is doing well and she really likes the Creon she feels it cuts down quite a bit on the borborygmus. However, she continues to have postprandial soft bowel movements with quite a bit of bloating. I was unaware that she was status post cholecystectomy because this was taken out in [place], and this is the most likely reason. She was educated about avoiding fats but it will also start her on a light dose of cholestyramine. I am going to start a just at once a day because 1. I do not want her to be constipated and 2. She takes mycophenolate and I do not want to interfere with the absorption. (however she has been unable to get in to see her neurologist and she is currently out of that medication) Return office visit in 3 weeks to evaluate her response. [facility] Medical History Spasm of bladder Ureteral stone with hydronephrosis Hyperparathyroidism Tinnitus Hearing loss Anxiety and depression Diabetes mellitus, with long-term current use of insulin Urinary, incontinence, stress female Wheezing Vitamin B12 deficiency Occlusion of stent of peripheral artery Personal history of nicotine dependence Chronic low back pain History of CVA (cerebrovascular accident) (~10/2020) History of kidney stones Tubular adenoma of colon COVID-19 vaccine series declined Colitis without complication Myasthenia gravis Pernicious anemia Myasthenia gravis Urge urinary incontinence Microalbuminuria Vitamin D deficiency Hypothyroidism Multinodular thyroid HTN (hypertension) Surgical History (Updated 12/27/24 @ 13:09 by SALO Yang) History of cholecystectomy History of surgery History of amputation of toe Hx of blood clots Status post biopsy of thyroid gland (~2021) History of colonoscopy History of esophagogastroduodenoscopy (EGD) History of bilateral cataract extraction (~2019) History of parathyroidectomy History of lithotripsy (~2013) History of hernia repair History of hysterectomy (~1984) Family History Father Lung cancer Mother Asthma Diabetes HTN (hypertension) Heart attack Sister FH: mental illness Leukemia Mental health disorder Social History Household Members: None Housing: Apartment Alcohol intake: current Alcohol intake frequency: does not drink Patient Tobacco Use Status: Former Tobacco user Tobacco use type: Cigarette Years Smoked: 45 +/- e-Cigarette/Vaping Use: Never Used Advance Directives Date on File: 03/03/22 service: No Current occupational status: disabled Cognitive needs: No Hearing needs: No Vision needs: No Review of Systems Const Denies fatigue, Denies fever(s), Denies night sweats, Denies poor appetite and Denies weight loss ENT Reports Normal hearing present, Denies dental pain, Denies dysphagia, Denies hearing loss, Denies mouth pain, Denies odynophagia, Denies throat swelling, Denies tongue swelling and Reports other (Dentition adequate) Card Reports no additional complaints Resp Reports no additional complaints GI Details: Denies abdominal pain, Denies melena, Reports bloating, Denies hematochezia, Denies constipation, Denies GI cramping, Denies dysphagia, Denies excessive flatus, Denies early satiety, Reports heartburn, Denies diarrhea, Reports loose stools, Denies nausea, Denies odynophagia, Denies vomiting and Denies pranav temesis Skin/Breast Denies pruritus, Denies lesions, Denies rash and Denies jaundice Neuro Reports Normal hearing present and Denies Abnormal speech present Endo Denies fatigue Aller/Immun Denies throat swelling and Denies tongue swelling Physical Exam Vital Signs: Last Vital Signs Pulse 82 12/27/24 12:41 BP 154/83 H 12/27/24 12:41 BMI result Body Mass Index 26.7 Const General: cooperative, no acute distress, well developed and well groomed Nutritional Appearance: well nourished Orientation/consciousness: oriented to person, oriented to place and oriented to time Limitations: No language barrier HEENT Head: Yes normocephalic and Yes atraumatic Eyes General: appearance normal, both eyes and all related structures Pupils: Equal, round and reactive pupils present Neck Neck: Yes normal visual inspection and Yes no lymphadenopathy Thyroid: Thyroid normal Resp Effort & Inspection: normal respiratory effort and able to speak in complete sentences Auscultation: clear to auscultation bilaterally Cardio Rate: regular rate Rhythm: regular rhythm Heart sounds: Normal, physiologic split S2 sound present Peripheral pulses: radial pulses present and posterior tibial pulses present GI Inspection: No distended and No Abdominal panniculus present Palpation (GI): Soft to palpation, nontender, no guarding, not rigid and No hepatosplenomegaly present Percussion: Yes normal to percussion Auscultation: normal bowel sounds Rectal Exam - Female: deferred Skin General skin exam: no rashes or lesions noted, turgor normal, skin not dry, no jaundice, No spider nevi and no striae Rashes: no rashes Nails: normal Neuro General: oriented to person, oriented to place and oriented to time Cranial nerves: Yes Equal, round and reactive pupils present and Yes Normal hearing present Speech: No Abnormal speech present Extrem General: Yes normal to inspection, No clubbing, No cyanosis and No edema Psych Appearance: grossly normal and well kempt Mental Status: mental status grossly normal Speech and movement: Normal speech and movement present Affect: normal affect Attitude: cooperative Thought process: Normal thought process present and not confabulating Thought content: Normal thought content present Insight: Fair insight present (Psych) Judgement: Fair judgement present (Psych) Assessment & Plan Assessment & Plan (1) GERD (gastroesophageal reflux disease): Comment: sees [facility] GI- Karon adams Code(s): K21.9 - Gastro-esophageal reflux disease without esophagitis Category: Medical (2) Irritable bowel syndrome with diarrhea: Code(s): K58.0 - Irritable bowel syndrome with diarrhea Category: Medical Plan [place] be seen in our ER for lack of circulation. She is upset because they had to make surgical scars to correct the situation. She is doing well and she really likes the Creon she feels it cuts down quite a bit on the borborygmus. However, she continues to have postprandial soft bowel movements with quite a bit of bloating. I was unaware that she was status post cholecystectomy because this was taken out in [place], and this is the most likely reason. She was educated about avoiding fats but it will also start her on a light dose of cholestyramine. I am going to start a just at once a day because 1. I do not want her to be constipated and 2. She takes mycophenolate and I do not want to interfere with the absorption. (however she has been unable to get in to see her neurologist and she is currently out of that medication) Return office visit in 3 weeks to evaluate her response. Medications: New llsdlm-sorrmhfx-mjfrtjw 36,000-114,000- 180,000 unit (Creon) administer with meals and/or snacks 2 caps PO BID 360 caps 1RF cholestyramine (Cholestyramine Light) administer w/meal; avoid other meds within 1hr before or 4-6hr after dose 4 grams PO DAILY 30 ea 6RF K58.0 - Irritable bowel syndrome with diarrhea Coding Level of Care Code Est Pt Level 3 (83503) Diagnoses GERD (gastroesophageal reflux disease) K21.9 Irritable bowel syndrome with diarrhea K58.0
[2024-12-27 12:41] VITALS: BP 154/83; PULSE 82; BMI 26.7
== END 2024-12-27 13:27 | disposition home or self-care (01) ==
LOC: HO.HGI 12:30
PROVIDERS: PCP Internal Medicine; Visit Provider Nurse Practitioner
DX: K21.9 Gastro-esophageal reflux disease without esophagitis (principal); K58.0 Irritable bowel syndrome with diarrhea
CPT/HCPCS: 99213

== ENCOUNTER 2025-01-02 10:03 | Outpatient (AMB) | payer OTHER, SELFPAY ==
--- NOTE | 2025-01-02 10:11 | A.OFFVIS_ITS ---
Intake Visit Reasons: 3m / mg Allergies Penicillins (PCN) Allergy (Unknown, Verified 12/27/24 12:47) RASH pregabalin (From Lyrica) Adverse Reaction (Severe, Verified 12/27/24 12:47) skin peeling gabapentin Adverse Reaction (Unknown, Verified 12/27/24 12:47) Dizziness Medication List - Last Reconciled 01/02/25 by Darlene Andrade MD amlodipine 5 mg PO BID apixaban 5 mg PO BID aspirin 81 mg PO DAILY atorvastatin 40 mg PO DAILY [bed rail As directed NS] blood pressure test kit-medium As directed to monitor blood pressure blood sugar diagnostic (FreeStyle Lite Strips) qid blood-glucose meter (FreeStyle Lite Meter kit) As directed blood-glucose meter (FreeStyle Lite Meter kit) As directed blood-glucose sensor (FreeStyle Oren 3 Plus Sensor device) As directed use in place of freestyle 3 due to shortage of FS3 blood-glucose,sap ariba consultant,cont (FreeStyle Oren 3 [place]) As directed chlorthalidone 25 mg PO DAILY cholestyramine (Cholestyramine Light) 4 grams PO DAILY duloxetine 60 mg PO DAILY incontinence pad, liner, disp As directed-use up to 4 per day insulin glargine (Lantus Solostar U-100 Insulin) 10 units (0.1 mL) subcut BEDTIME 30 days lancets (FreeStyle Lancets) 4x daily levothyroxine 125 mcg PO DAILY levothyroxine 112 mcg PO DAILY lidocaine 5% 1 patch topical DAILY abbqja-zxiwewfa-wcqwbja 36,000-114,000- 180,000 unit (Creon) 2 caps PO BID metformin 1,000 mg PO BID 30 days metoprolol succinate ER 25 mg (1/2 x 50 mg) PO DAILY mycophenolate mofetil 1,000 mg (2 x 500 mg) PO TID@0800,1300,1900 nut.tx.gluc.intol,lac-free,soy (Glucerna oral liquid) 1 ea PO TID oxybutynin chloride ER 10 mg PO DAILY 2 weeks oxycodone mg PO pen needle, diabetic once daily pyridostigmine bromide 180 mg PO TID [shower bench without back As directed] HPI Comments Details: 69 yo woman with 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 She was diabetic and could not take prednisone. She has been taking large dose of mycopheylate and pyridostigmine without full control of symptoms. Previously she was treated wtih plasmapharesis and she was allergic to IVIG. She was given the option of taking a biological drug but she was afraid to take another toxic drug and preferred to stay with present drugs and PRN plasmapharesis. She was complaining of difficulty swallowing especially with liquids. No significant difficulty breathing. No double vision. She was having some unsteadiness of gait. [facility] Medical History (Updated 01/02/25 @ 10:14 by Darlene Andrade MD) Spasm of bladder Ureteral stone with hydronephrosis Hyperparathyroidism Tinnitus Hearing loss Anxiety and depression Diabetes mellitus, with long-term current use of insulin Urinary, incontinence, stress female Wheezing Vitamin B12 deficiency Occlusion of stent of peripheral artery Personal history of nicotine dependence Chronic low back pain History of CVA (cerebrovascular accident) (~10/2020) History of kidney stones Tubular adenoma of colon COVID-19 vaccine series declined Colitis without complication Myasthenia gravis Pernicious anemia Myasthenia gravis Urge urinary incontinence Microalbuminuria Vitamin D deficiency Hypothyroidism Multinodular thyroid HTN (hypertension) Surgical History (Updated 12/27/24 @ 13:09 by SALO Yang) History of cholecystectomy History of surgery History of amputation of toe Hx of blood clots Status post biopsy of thyroid gland (~2021) History of colonoscopy History of esophagogastroduodenoscopy (EGD) History of bilateral cataract extraction (~2019) History of parathyroidectomy History of lithotripsy (~2013) History of hernia repair History of hysterectomy (~1984) Family History Father Lung cancer Mother Asthma Diabetes HTN (hypertension) Heart attack Sister FH: mental illness Leukemia Mental health disorder Social History Household Members: None Housing: Apartment Alcohol intake: current Alcohol intake frequency: does not drink Patient Tobacco Use Status: Former Tobacco user Tobacco use type: Cigarette Years Smoked: 45 +/- e-Cigarette/Vaping Use: Never Used Advance Directives Date on File: 03/03/22 service: No Current occupational status: disabled Cognitive needs: No Hearing needs: No Vision needs: No Review of Systems Const Details: Constitutional:?No fever, chills, fatigue, weight loss, or night sweats. HEENT:?No headache, vision changes, hearing loss, nasal congestion, sore throat. Neurological:?No dizziness, syncope, seizures, numbness, tingling, weakness, tremors, memory loss. Psychiatric:?No anxiety, depression, mood swings, sleep disturbance, or hallucinations. Endocrine:?No heat/cold intolerance, polydipsia, polyuria, or hair/skin changes. Hematologic/Lymphatic:?No easy bruising, bleeding, or lymphadenopathy. Integumentary (Skin):?No rash, lesions, itching, or color changes. ? Physical Exam Neuro Other: Mental Status: Alert and oriented to person, place, and time. Normal attention. Normal spontaneous speech, fluency, and comprehension. No obvious issues with mood and memory. Affect is appropriate. Cranial Nerves: CN II: Visual sainz full to confrontation, visual acuity intact. CN III, IV, : Pupils equal, round, reactive to light and accommodation. Extraocular movements are normal. CN V: Facial sensation is normal. CN VII: Facial movements symmetrical. CN VIII: Hearing intact to bedside conversation is normal. CN IX, X: Palate elevates symmetrically. CN XI: Shoulder shrug and head turn symmetrical. CN XII: Tongue midline without atrophy or fasciculations. Extrapyramidal: Full facial expressions and blinking. No rigidity. Movements are appropriate with no tremor or abnormality. Speech: Normal; no dysarthria or tremor. Assessment & Plan Assessment & Plan (1) Myasthenia gravis: Comment: ACh Abs at [facility] in 2019: Binding titer is high, blocking and modulating ok CT chest/lungs at [facility] in 2022: Mild emphyesema and granumalous disease. Code(s): G70.00 - Myasthenia gravis without (acute) exacerbation Category: Medical Plan Impression: Antibody positive generalized myasthenia gravis Recommendations: 1. Mycophenolate 500 mg to, 3 times a day 2. Folic acid 1 mg daily 3. Pyridostigmine 60 mg 3 times a day 4. IVIg PRN Medications: New pyridostigmine bromide 180 mg (3 x 60 mg) PO TID 270 tabs 1RF folic acid 1 mg PO DAILY 90 tabs 1RF Refilled mycophenolate mofetil 1,000 mg (2 x 500 mg) PO TID@0800,1300,1900 540 tabs 1RF Coding Level of Care Code Est Pt Level 5 (05847) Diagnoses Myasthenia gravis G70.00
--- OUTSIDE RECORDS SUMMARY | 2025-01-02 10:51 | XMS_ITS | Data Portability ---
Author Organization [facility] Address [address] [place] [address] Care Team Providers Care Lead Shop Operator Name Role Phone [facility] Referring Provider Assessment Encounter Date Assessment Date Assessment LastModified by Organization Details LastModified Time 01/13/2022 01/13/2022 I have reviewed and agree with the assessment and plan as documented by the paramedic rn. I provided real-time medical direction for this [...] Note 3085 Itzel Mott MD [facility] [address] [place] [phone] 01/13/2022 20:36:58 02/19/2022 12:51:59 Chronic deep venous thrombosis of lower extremity [id number] I82.509 Health Concerns Section Related Observation LastModified by Organization Detai ls LastModified Time None Recorded Concern Status LastModified by Organization Details LastModified Time None Recorded Advance Directives Directive None Recorded Payers Insurance Date Sequence Insurance Name Policy Number Policy Nciolas Covered Member ID Nicolas Member ID Guarantor Name 08/17/2023 1 [facility] - DOS PRIOR TO 2022 - DUAL ELIGIBLE (MEDICARE REPLACEMENT/AD VANTAGE - HMO) Magy Fitzgerald [id number] Magy Fitzgerald 08/17/2023 1 [facility] - DOS ON OR AFTER 2022 - DUAL ELIGIBLE - PENITENTIARY OPTIONS AND ONE CARE (MEDICARE REPLACEMENT/AD VANTAGE - HMO) Magy Fitzgerald [id number] Magy Fitzgerald Notes Date Note Type Note Provider Name and Address Organization Details Recorded Time 01/13/2022 text/html CRC Nursing Assessment: Chief Complaints: Pain PMH: Diabetes Allergies: Unknown 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
--- OUTSIDE RECORDS SUMMARY | 2025-01-02 10:51 | XMS_ITS | Clinical Summary ---
Author Organization [facility] Address [address] [facility] [address] [place] [phone] Phone Care Team Providers Care Labor And Delivery Registered Nurse Name Role Phone Unknown, Unknown Primary Care Provider Camelia morrow Social History Tobacco Use Types Packs/Day Years Used Date Smoking Tobacco: Never Assessed Education Answer Date Recorded Are you interested in more education? Not on sarath e 06/12/2023 Are you concerned about learning? Not on file 06/12/2023 No 06/12/2023 No 06/12/2023 Digital Access Answer Date Recorded No 06/12/2023 No 06/12/2023 Reliable internet access at home? Not on file 06/12/2023 Device with a working camera? Not on file Comments Unknown Sex and Gender Information Value Date Recorded Sex Assigned at Not on file Legal Sex Female 6:40 AM EST Gender Identity Not on file Sexual Orientation Not on file Plan of Treatment Not on file Medical Devices Not on file Insurance [facility] MEDICARE REPLACEMENT [facility] MEDICARE REPLACEMENT Care Teams Labor And Delivery Registered Nurse Relationship Specialty Start Date End Date Unknown, Unknown, PCP - General 06/12/23 Additional Source Comments The information contained in this document represents components of the legal health record. It is not the complete legal health record.[facility]
--- OUTSIDE RECORDS SUMMARY | 2025-01-02 10:51 | XMS_ITS | Patient Health Record ---
[facility] Organization [facility] Address [address] [facility] [place] [address] Care Team Providers Care Bolt Cutter Name Role Phone Ap GODDARD, Bernadette Lyman Primary Care Provider Un available Jr Jacoboen Unavailable [phone] Allergies Allergen (clinical drug ingredient) Drug/Non Drug Allergy documented on EMR Reaction Allergy Type Onset Date Status Influenza A (H1N1) Monoval PF Unknown Drug Allergy Active gabapentin Gabapentin Unknown Drug Allergy Activ e Penicillin Unknown Drug Allergy Active Results Component Value Reference Range Notes HEMOGLOBIN A1C (GLYCOHEMOGLO BIN) Reviewed date:12/30/2024 11:18:36 AM Interpretation: Performing Lab: Notes/Report: HEMOGLOBIN A1C (HH) 7.4 Reason For Referral No Information Medications Medication SIG (Take, Route, Frequency, Duration) Notes Start Date End Date Status Potassium Active Metoprolol Succinate ER 25 MG Oral; Duration: 90 Active Extra Depth Orthopedic Shoes (1 Pair) with Customized Heat Molded Multidensity Innersoles (3 Pair) Dx: NIDDM/Polyneuropath y (E11.42), Hammertoe Foot Deformity (M20.41,M20.42), Preulcerative Skin Lesion(s) (L85.1); Duration: 365 days 12/28/2024 Active Extra Depth Orthopedic Shoes (1 Pair) with Customized Heat Molded Multidensity Innersoles (3 Pair) as directed Dx: NIDDM/Polyneuropath y (E11.42), Hammertoe Foot Deformity (M20.41,M20.42), Preulcerative Skin Lesion(s) (L85.1 09/16/2022 Active oxyBUTYnin Chloride 5 MG 1 tablet Orally Twice a day; Duration: 30 day(s) Active Clotrimazole-Betamethason e 1-0.05 % APPLY TO AFFECTED AREA ON FEET TWICE A DAY; Duration: 30 Active Levothyroxine Sodium 137 MCG 1 tablet in the morning on an empty stomach Orally Once a day; Duration: 30 day(s) Active Meloxicam 15 MG as directed Orally Once a day; Duration: 25 days from urgent care Active metFORMIN HCl 1000 MG 1 tablet with a meal Orally Once a day; Duration: 30 day(s) Active Bactrim 09/22/22 from Urgent care Not-Taking Extra Depth Orthopedic Shoes (1 Pair) with Customized Heat Molded Multidensity Innersoles (3 Pair) as directed Add filler left shoe _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 Dx: NIDDM/Polyneuropath y (E11.42), Hammertoe Foot Deformity (M20.41,M20.42), Preulcerative Skin Lesion(s) (L85.1 07/02/2022 Active Bactrim DS 800-160 MG 1 tablet Orally every 12 hrs; Duration: 5 days 09/16/2022 Not-Taking amLODIPine Besylate 5 MG 1 tablet Orally Once a day; Duration: 30 day(s) Active Ciclopirox Olamine 0.77 % 1 application to affected area Externally to feet Twice a day; Duration: 30 days Not-Taking Rosuvastatin Calcium 40 MG 1 tablet Orally Once a day; Duration: 30 day(s) Active Atorvastatin Calcium 80 MG 1 tablet Orally Once a day; Duration: 30 day(s) Not-Taking Cholecalciferol 25 MCG (1000 UT) 1 capsule Orally Once a day; Duration: 30 day(s) Active hydroCHLOROthiazide 25 MG 1 tablet in morning Orally Once a day; Duration: 30 day(s) Not-Taking pyRIDostigmine [place] ER 180 MG 1 tablet Orally Once a day; Duration: 30 day(s) Active oxyCODONE ER Not-Darshan ing Ramipril 10 MG 1 capsule Orally Once a day; Duration: 30 day(s) Active Bactrim DS 800-160 MG 1 tablet Orally every 12 hrs; Duration: 10 day(s) 06/03/2023 Not-Taking Immunizations Vaccine Route Administration Date Status Comme nts Influenza Unknown 08/18/2023 Refused Influenza Unknown 12/28/2024 Refused Social History Tobacco Use: Social History Observation Description Date Details (start date - stop date) Never Smoker NA - NA Tobacco use other than smoking: Question Answer Notes Are you an other tobacco user? No Tobacco Control (Standard) Question Answer Notes Tobacco use: Nonsmoker Additional Findings: Tobacco non-user Current no nsmoker AUDIT-C (Standard) Question Answer Notes Did you have a drink containing alcohol in the p ast year? No Points 0 Interpretation Negative Problems Problem Type SNOMED Code ICD Code Onset Dates Problem Status W/U Status Risk Notes Problem Type 2 diabetes mellitus with polyneuropathy (E11.42) Active confirmed Problem Bilateral atherosclerosis of arteries of lower limbs (disorder) (37001326287593996 ) Atherosclerosis of artery of both lower extremities (I70.203) Active confirmed Vital Signs Blood pressure diastolic 80 mm Hg 12/28/2024 Height 5ft 1in in 12/28/2024 Blood pressure systolic 130 mm Hg 12/28/2024 Weight 140 lbs 12/28/2024 BMI 26.45 kg/m2 12/28/2024 Encounters Encounter Location Date Provider Diagnosis [address] [address] 12/28/2024 Terri Jacobo Atherosclerosis of artery of both lower extremities I70.203 ; Other hammer toe(s) (acquired), left foot M20.42 ; Type 2 diabetes mellitus with polyneuropathy E11.42 and Other hammer toe(s) (acquired), right foot M20.[address] [address] 03/17/2024 Terri Jacobo [address] [address] 04/25/2024 Terri Jacobo [address] [address] 07/05/2024 Terri Jacobo [address] [address] 12/28/2024 Terri Jacobo Assessments Encounter Date Diagnosis (ICD Code) Assessment Notes Treatment Notes Treatment Clinical Notes Section Notes 12/28/2024 Other hammer toe(s) (acquired), left foot (ICD-10 - M20.42) 12/28/2024 Atherosclerosis of artery of both lower extremities (ICD-10 - I70.203) 12/28/2024 Type 2 diabetes mellitus with polyneuropathy (ICD-10 - E11.42) 12/28/2024 Other hammer toe(s) (acquired), right foot (ICD-10 - M20.41) Patient Educated with: DIABETIC FOOT CARE INSTRUCTIONS. pdf (DIABETIC FOOT CARE INSTRUCTIONS. pdf) Plan Of Treatment Next Appt Details Provider Name:Terri ernandez, 05/02/2025 02:30:00 PM, [address] [place] [address], [phone], Insurance Providers Payer Name Payer Address Payer Phone Subscriber Number Group Number Insured Name Patient Relationship to Insured Coverage Start Date Coverage End Date [facility] [employer] S[employer] Claims [address] [place] [id number] Magy Trejo Self - patient is the [...] 05/29/[address] Carmona 07/16/23 blood clot 07/09 Hospitalization History Reason Date(Month/Year) blood clot 07/09
--- OUTSIDE RECORDS SUMMARY | 2025-01-02 10:51 | XMS_ITS | Clinical Summary ---
Author Organization [facility] Address [address] [place] [address] [place] [address] Phone Care Team Providers Care Wafer Mounter Name Role Phone Sabas De Souza MD Primary Care Provider +1- [phone] Allergies Active Allergy Reactions Criticality Noted Date [...] 12/24/2024 Refill [facility] [address] [place] [address] Ambrosio Brewer MD 10/20/2024 2:45 PM EDT Office Visit [facility] [address] [place] [address] Misael Mcneill MD History of calculus of [...] [facility] [address] [place] [address] Misael Mcneill MD [address] [facility] [address] [place] [address] Health Maintenance Due Date Last [...] Most Recently Relevant to Health Maintenance [place] [address] [employer] ([id number]) [employer] ([id number]) Care Teams Wafer Mounter Relationship Specialty Start Date End Date Sabas De Souza MD [address] [facility] [place] [address] PCP - General Internal Medicine 12/24/20
--- OUTSIDE RECORDS SUMMARY | 2025-01-02 10:51 | XMS_ITS | Encounter Summary ---
Author Organization [facility] Address [address] [place] [address] Care Team Providers Care Sales Process Manager Name Role Phone Unavailable Primary Care Provider Unavailabl e Encounter Details Date Type Department Care Team (Late st Contact Info) Description 10/24/2024 Lab Requisition [facility] - Main Lab [address] [facility] [place] [address] Sasha Storm PA [address] [place] [address] Gross hematuria Social History Tobacco Use Types [...] AM EDT) Final Diagnosis A. Urine, Voided, [id number]: Negative for high grade urothelial carcinoma. Results of UroVysion fluorescence in situ hybridization (FISH) testing: CEP3: Normal CEP7: Normal CEP17: Normal LSI 9p21: Normal Interpretation: Normal profile Controls stained appropriately. Note: The results are intended as a screening device and should be interpreted in association with other clinical and pathological findings. 11/04/2024 2:06 PM EDT [facility] Clinical Information Gross hematuria R31.0 Urine Cytology/FISH (now) 11/04/2024 2:06 PM EDT [facility] Gross Description A. Urine, Voided, [id number]: Received one ThinPrep slide for cytology and one ThinPrep slide for UroVysion FISH 11/04/2024 2:06 PM EDT [facility] Disclaimer Unless otherwise specified, all tissue is 10% NB formalin fixed and paraffin embedded. Technical pathology services provided by [facility] at [address] [place] [address] [address], [place] [address] (CLIA #[id number]/Екатерина Elliott MD, [employer]) 11/04/2024 2:06 PM EDT [facility] Tissue Urine specimen from urethra / Unknown 10/18/2024 10/24/2024 9:17 AM EDT us Sasha [facility] PATHOLOGY ORDERABLES Final Result [facility] [address] [place] [address], documented in this encounter Visit Diagnoses Diagnosis Gross hematuria documented in this encounter
== END 2025-01-02 10:24 | disposition home or self-care (01) ==
LOC: HO.HSM 10:03
PROVIDERS: PCP Internal Medicine; Visit Provider Psychiatry & Neurology Neurology
DX: G70.00 Myasthenia gravis without (acute) exacerbation (principal)
CPT/HCPCS: 99214

== ENCOUNTER → 2025-01-02 10:03 | Outpatient (BNVA) | payer OTHER, SELFPAY | PROVIDERS: PCP Internal Medicine; Visit Provider Psychiatry & Neurology Neurology | DX: G70.00 Myasthenia gravis without (acute) exacerbation (principal) | CPT/HCPCS: 99212 ==

== ENCOUNTER 2025-01-18 10:21 | Outpatient (AMB) | payer OTHER, SELFPAY ==
--- NOTE | 2025-01-18 10:23 | MHC.OFFVIS ---
Vital Signs 01/18/25 10:29 Height 5 ft 1 in Weight 145 lb 1.027 oz BMI 27.4 BP 176/99 H Blood Pressure Location Rt brachial Position Sitting Pulse 75 Intake Visit Reasons: IBS-D Intake Note: Magy returns to in office follow up of IBS-D. CC: Patient states that she is doing better but still hears a lot of noise from her stomach. Hvac Engineering Technician Required: No Accompanied by: Self / Same As Patient Allergies Penicillins (PCN) Allergy (Unknown, Verified 01/18/25 10:41) RASH pregabalin (From Lyrica) Adverse Reaction (Severe, Verified 01/18/25 10:41) skin peeling gabapentin Adverse Reaction (Unknown, Verified 01/18/25 10:41) Dizziness HPI HPI IBS-D: Details: Assessment & Plan (1) GERD (gastroesophageal reflux disease): Comment: sees [facility] Karon angie Code(s): K21.9 - Gastro-esophageal reflux disease without esophagitis Category: Medical (2) Irritable bowel syndrome with diarrhea: Code(s): K58.0 - Irritable bowel syndrome with diarrhea Category: Medical Plan She had her vascular surgery in [place] but then had to be seen in our ER for lack of circulation. She is upset because they had to make surgical scars to correct the situation. She is doing well and she really likes the Creon she feels it cuts down quite a bit on the borborygmus. However, she continues to have postprandial soft bowel movements with quite a bit of bloating. I was unaware that she was status post cholecystectomy because this was taken out in [place], and this is the most likely reason. She was educated about avoiding fats but it will also start her on a light dose of cholestyramine. I am going to start a just at once a day because 1. I do not want her to be constipated and 2. She takes mycophenolate and I do not want to interfere with the absorption. (however she has been unable to get in to see her neurologist and she is currently out of that medication) Return office visit in 3 weeks to evaluate her response. Medications: New fmroqb-xmkwvgdq-zzxkljm 36,000-114,000- 180,000 unit (Creon) administer with meals and/or snacks 2 caps PO BID 360 caps 1RF cholestyramine (Cholestyramine Light) administer w/meal; avoid other meds within 1hr before or 4-6hr after dose 4 grams PO DAILY 30 ea 6RF K58.0 - Irritable bowel syndrome with diarrhea TODAYS VISIT She continues to have dyspepsia nad borborygmus, mostly after taking her pyrostigmigne - which is a possible s/e documented. It is improved with her Creon, but she did not understand that she could take it more than once a day so I educated her that she has a enough to take up to 4 tablets a day. She also says she has utilize Pepcid in the past with good results so I will prescribe this to her twice a day. It is extremely difficult to offset the side effects of a medication that is absolutely essential to treat her myasthenia gravis. However we have managed to do so to some extent to make her life more manageable. She is happy with this. She also continues to do well with the cholestyramine. Return office visit in 6 months. [facility] Medical History Spasm of bladder Ureteral stone with hydronephrosis Hyperparathyroidism Tinnitus Hearing loss Anxiety and depression Diabetes mellitus, with long-term current use of insulin Urinary, incontinence, stress female Wheezing Vitamin B12 deficiency Occlusion of stent of peripheral artery Personal history of nicotine dependence Chronic low back pain History of CVA (cerebrovascular accident) (~10/2020) History of kidney stones Tubular adenoma of colon COVID-19 vaccine series declined Colitis without complication Myasthenia gravis Pernicious anemia Myasthenia gravis Urge urinary incontinence Microalbuminuria Vitamin D deficiency Hypothyroidism Multinodular thyroid HTN (hypertension) Surgical History History of cholecystectomy History of surgery History of amputation of toe Hx of blood clots Status post biopsy of thyroid gland (~2021) History of colonoscopy History of esophagogastroduodenoscopy (EGD) History of bilateral cataract extraction (~2019) History of parathyroidectomy History of lithotripsy (~2013) History of hernia repair History of hysterectomy (~1984) Family History Father Lung cancer Mother Asthma Diabetes HTN (hypertension) Heart attack Sister FH: mental illness Leukemia Mental health disorder Social History Household Members: None Housing: Apartment Alcohol intake: current Alcohol intake frequency: does not drink Patient Tobacco Use Status: Former Tobacco user Tobacco use type: Cigarette Years Smoked: 45 +/- e-Cigarette/Vaping Use: Never Used Advance Directives Date on File: 03/03/22 service: No Current occupational status: disabled Cognitive needs: No Hearing needs: No Vision needs: No Review of Systems Const Denies fatigue, Denies fever(s), Denies night sweats, Denies poor appetite and Denies weight loss ENT Reports Normal hearing present, Denies dental pain, Denies dysphagia, Denies hearing loss, Denies mouth pain, Denies odynophagia, Denies throat swelling, Denies tongue swelling and Reports other (Dentition adequate) Card Reports no additional complaints Resp Reports no additional complaints GI Details: Denies abdominal pain, Denies melena, Reports bloating, Denies hematochezia, Denies constipation, Reports GI cramping, Denies dysphagia, Denies excessive flatus, Denies early satiety, Reports dyspepsia, Reports heartburn, Denies diarrhea, Reports loose stools, Denies nausea, Denies odynophagia, Denies vomiting and Denies hematemesis Skin/Breast Denies pruritus, Denies lesions, Denies rash and Denies jaundice Neuro Reports Normal hearing present and Denies Abnormal speech present Endo Denies fatigue Aller/Immun Denies throat swelling and Denies tongue swelling Physical Exam Vital Signs: Last Vital Signs Pulse 75 01/18/25 10:29 BP 176/99 H 01/18/25 10:29 BMI result Body Mass Index 27.4 Const General: cooperative, no acute distress, well developed and well groomed Nutritional Appearance: well nourished and overweight Orientation/consciousness: oriented to person, oriented to place and oriented to time Limitations: No language barrier HEENT Head: Yes normocephalic and Yes atraumatic Eyes General: appearance normal, both eyes and all related structures Pupils: Equal, round and reactive pupils present Neck Neck: Yes normal visual inspection and Yes no lymphadenopathy Thyroid: Thyroid normal Resp Effort & Inspection: normal respiratory effort and able to speak in complete sentences Auscultation: clear to auscultation bilaterally Cardio Rate: regular rate Rhythm: regular rhythm Heart sounds: Normal, physiologic split S2 sound present Peripheral pulses: radial pulses present and posterior tibial pulses present GI Inspection: No distended, No Abdominal panniculus present and Yes obesity Palpation (GI): Soft to palpation, nontender, no guarding, not rigid and No hepatosplenomegaly present Percussion: Yes normal to percussion Auscultation: normal bowel sounds Rectal Exam - Female: deferred Skin General skin exam: no rashes or lesions noted, turgor normal, skin not dry, no jaundice, No spider nevi and no striae Rashes: no rashes Nails: normal Neuro General: oriented to person, oriented to place and oriented to time Cranial nerves: Yes Equal, round and reactive pupils present and Yes Normal hearing present Speech: No Abnormal speech present Extrem General: Yes normal to inspection, No clubbing, No cyanosis and No edema Psych Appearance: grossly normal and well kempt Mental Status: mental status grossly normal Speech and movement: Normal speech and movement present Affect: normal affect Attitude: cooperative Thought process: Normal thought process present and not confabulating Thought content: Normal thought content present Insight: Good insight present (Psych) Judgement: Good judgement present (Psych) Assessment & Plan Assessment & Plan (1) Irritable bowel syndrome with diarrhea: Code(s): K58.0 - Irritable bowel syndrome with diarrhea Category: Medical (2) GERD (gastroesophageal reflux disease): Comment: sees [facility]- [place] Code(s): K21.9 - Gastro-esophageal reflux disease without esophagitis Category: Medical (3) Dyspepsia: Code(s): R10.13 - Epigastric pain Category: Medical Plan She continues to have dyspepsia nad borborygmus, mostly after taking her pyrostigmigne - which is a possible s/e documented. It is improved with her Creon, but she did not understand that she could take it more than once a day so I educated her that she has a enough to take up to 4 tablets a day. She also says she has utilize Pepcid in the past with good results so I will prescribe this to her twice a day. It is extremely difficult to offset the side effects of a medication that is absolutely essential to treat her myasthenia gravis. However we have managed to do so to some extent to make her life more manageable. She is happy with this. She also continues to do well with the cholestyramine. Return office visit in 6 months. Medications: New famotidine (Pepcid) 20 mg PO BID 60 tabs 11RF K21.9 - Gastro-esophageal reflux disease without esophagitis, R10.13 - Epigastric pain Coding Level of Care Code Est Pt Level 3 (47822) Diagnoses Irritable bowel syndrome with diarrhea K58.0 GERD (gastroesophageal reflux disease) K21.9 Dyspepsia R10.13
[2025-01-18 10:29] VITALS: BP 176/99; PULSE 75; BMI 27.4
--- OUTSIDE RECORDS SUMMARY | 2025-01-18 10:58 | XMS_ITS | Patient Health Record ---
Author Organization [facility] Address [address] [facility] [place] [address] Care Team Providers Care Piece Jobber Name Role Phone Ap GODDARD, Bernadette Lyman Primary Care Provider Un available Jr Jacoboen Unavailable [phone] Allergies Allergen (clinical drug ingredient) Drug/Non Drug [...] a day; Duration: 30 day(s) Not-Taking pyRIDostigmine [place] ER 180 MG 1 tablet Orally Once [...] atherosclerosis of arteries of lower limbs (disorder) (26201271520463082 ) Atherosclerosis of artery of both lower extremities (I70.203) Active confirmed Vital Signs Blood pressure diastolic 80 mm Hg 12/28/2024 Height 5ft 1in in 12/28/2024 Blood pressure systolic 130 mm Hg 12/28/2024 Weight 140 lbs 12/28/2024 BMI 26.45 kg/m2 12/28/2024 Encounters Encounter Location Date Provider Diagnosis [address] [address] 12/28/2024 Terri Jacobo Atherosclerosis of artery of both lower extremities I70.203 ; Other hammer toe(s) (acquired), left foot M20.42 ; Type 2 diabetes mellitus with polyneuropathy E11.42 and Other hammer toe(s) (acquired), right foot M20.[address] [address] 03/17/2024 Terri Jacobo [address] [address] 04/25/2024 Terir Jacobo [address] [address] 07/05/2024 Terri Jacobo [address] [address] 12/28/2024 Terri Jacobo Assessments Encounter Date Diagnosis [...] Provider Name:Terri ernandez, 05/02/2025 02:30:00 PM, [address] [place] [address], [phone], Insurance Providers Payer Name Payer Address Payer Phone Subscriber Number Group Number Insured Name Patient Relationship to Insured Coverage Start Date Coverage End Date [facility] [employer] Claims [address] [place] [phone] [id number] Magy Trejo Self - patient is the [...]
--- OUTSIDE RECORDS SUMMARY | 2025-01-18 10:58 | XMS_ITS | Clinical Summary ---
Author Organization [facility] Address [address] [facility] [address] [place] [address] Phone Care Team Providers Care Inside Phone Sales Name Role Phone Unknown, Unknown Primary Care [...] file Medical Devices Not on file Insurance [facility] MED[facility] REPLACEMENT [facility] Care Teams Inside Phone Sales Relationship Specialty Start Date End Date Unknown, Unknown, PCP - General 06/12/23 Additional Source Comments The information contained in this document represents components of the legal health record. It is not the complete legal health record.[facility]
--- OUTSIDE RECORDS SUMMARY | 2025-01-18 10:58 | XMS_ITS | Clinical Summary ---
Author Organization [facility] Address [address] [place] [address] [place] [address] Phone Care Team Providers Care Web Portal Developer Name Role Phone Sabas De Souza MD Primary Care Provider +1- [phone] Allergies Active Allergy Reactions Criticality Noted Date [...] [facility]ill [facility] [address] [place] [address] Ambrosio Brewer MD 10/20/2024 2:45 PM EDT Office Visit [facility] [address] [place] [address] Misael Mcneill MD History of calculus of [...] Visit [facility] [address] [place] [address] Misael Mcneill MD [address] [facility] [address] [place] [address] Health Maintenance Due Date Last [...] Most Recently Relevant to Health Maintenance [place] [address] [facility] ([id number]) [facility] ([id number]) Care Teams Web Portal Developer Relationship Specialty Start Date End Date Sabas De Souza MD [address] [place] [phone] PCP - General Internal Medicine 12/24/20
--- OUTSIDE RECORDS SUMMARY | 2025-01-18 10:58 | XMS_ITS | Encounter Summary ---
Author Organization [facility] Address [address] [place] [address] Care Team Providers Care Climatology Teacher Name Role Phone Unavailable Primary Care Provider Unavailabl e Encounter Details Date Type Department Care Team (Late st Contact Info) Description 10/24/[address] [facility] - Main Lab [address] [facility] [place] [address] Sasha Storm PA [address] [place] [address] Gross hematuria Social History Tobacco Use Types [...] AM EDT) Final Diagnosis A. Urine, Voided, [id number]: Negative for high grade urothelial carcinoma. Results of UroVysion fluorescence in situ hybridization (FISH) testing: CEP3: Normal CEP7: Normal CEP17: Normal LSI 9p21: Normal Interpretation: Normal profile Controls stained appropriately. Note: The results are intended as a screening device and should be interpreted in association with other clinical and pathological findings. 11/04/2024 2:06 PM EDT [facility] HOSPITAL LAB Clinical Information Gross hematuria R31.0 Urine Cytology/FISH (now) 11/04/2024 2:06 PM EDT [facility] Gross Description A. Urine, Voided, [id number]: Received one ThinPrep slide for cytology and one ThinPrep slide for UroVysion FISH 11/04/2024 2:06 PM EDT [facility] Disclaimer Unless otherwise specified, all tissue is 10% NB formalin fixed and paraffin embedded. Technical pathology services provided by [facility] at [address] [place] [address] [address], [place] [address] (CLIA #[id number]/Екатерина Elliott MD, Crude Oil Treater) 11/04/2024 2:06 PM EDT [facility] Tissue Urine specimen from urethra / Unknown 10/18/2024 10/24/2024 9:17 AM EDT us Sasha TRIANA LAB PATHOLOGY ORDERABLES Final Result [facility] [address] [place] [address], documented in this encounter Visit Diagnoses Diagnosis Gross hematuria documented in this encounter
== END 2025-01-18 10:57 | disposition home or self-care (01) ==
LOC: HO.HGI 10:22
PROVIDERS: PCP Internal Medicine; Visit Provider Nurse Practitioner
DX: K58.0 Irritable bowel syndrome with diarrhea (principal); K21.9 Gastro-esophageal reflux disease without esophagitis; R10.13 Epigastric pain
CPT/HCPCS: 99213

== ENCOUNTER → 2025-01-18 10:21 | Outpatient (BNVA) | payer OTHER, SELFPAY | PROVIDERS: PCP Internal Medicine; Visit Provider Nurse Practitioner | DX: K21.9 Gastro-esophageal reflux disease without esophagitis (principal); K58.0 Irritable bowel syndrome with diarrhea; R10.13 Epigastric pain | CPT/HCPCS: 99212 ==

== ENCOUNTER 2025-01-19 15:29 | Outpatient (AMB) | payer OTHER, SELFPAY ==
--- OUTSIDE RECORDS SUMMARY | 2025-01-19 15:32 | XMS_ITS | Clinical Summary ---
Author Organization [facility] Address [address] [place] [address] [place] [address] Phone Care Team Providers Care Exam Proctor Name Role Phone Sabas De Souza MD Primary Care Provider [phone]- [phone] Allergies Active Allergy Reactions Criticality Noted Date [...] 12/24/2024 Refill [facility] [address] [place] [address] Ambrosio Brewer MD 10/20/2024 2:45 PM EDT Office Visit [facility] [address] [place] [address] Misael Mcneill MD History of calculus of [...] Visit [facility] [address] [place] [address] Misael Mcneill MD [address] [facility] [address] [place] [address] Health Maintenance Due Date Last [...] Most Recently Relevant to Health Maintenance [place] [address] [facility] ([id number]) [facility] ([id number]) Care Teams Exam Proctor Relationship Specialty Start Date End Date Sabas De Souza MD [address] [place] [id number] PCP - General Internal Medicine 12/24/20
--- OUTSIDE RECORDS SUMMARY | 2025-01-19 15:32 | XMS_ITS | Patient Health Record ---
Author Organization [facility] Address [address] [facility] [place] [address] Care Team Providers Care Help Desk Manager Name Role Phone Ap GODDARD, Bernadette Lyman Primary Care Provider Un available Jr Jacoboen Unavailable [phone] Allergies Allergen (clinical drug ingredient) Drug/Non Drug [...] a day; Duration: 30 day(s) Not-Taking pyRIDostigmine [place] ER 180 MG 1 tablet Orally Once [...] Problem Status W/U Status Risk Notes Problem Polyneuropathy due to type 2 diabetes mellitus (795001922) Type 2 diabetes mellitus with polyneuropathy (E11.42) Active confirmed Problem Bilateral atherosclerosis of arteries of lower limbs (disorder) ([id number] ) Atherosclerosis of artery of both lower extremities (I70.203) Active confirmed Vital Signs Blood pressure diastolic 80 mm Hg 12/28/2024 Height 5ft 1in in 12/28/2024 Blood pressure systolic 130 mm Hg 12/28/2024 Weight 140 lbs 12/28/2024 BMI 26.45 kg/m2 12/28/2024 Encounters Encounter Location Date Provider Diagnosis [address] [address] 12/28/2024 Terri Jacobo Atherosclerosis of artery of both lower extremities I70.203 ; Other hammer toe(s) (acquired), left foot M20.42 ; Type 2 diabetes mellitus with polyneuropathy E11.42 and Other hammer toe(s) (acquired), right foot M20.[address] [address] 03/17/2024 Terri Jacobo [address] [address] 04/25/2024 Terri Jacobo [address] [address] 07/05/2024 Terri Jacobo [address] [address] 12/28/2024 Terri Jacobo Assessments Encounter Date Diagnosis [...] Provider Name:Terri ernandez, 05/02/2025 02:30:00 PM, [address] [place], [address], Insurance Providers Payer Name Payer Address Payer Phone Subscriber Number Group Number Insured Name Patient Relationship to Insured Coverage Start Date Coverage End Date [facility] [employer] Claims [address] [place] [address] [phone] [id number] Magy Trejo Self - patient is the [...]
--- OUTSIDE RECORDS SUMMARY | 2025-01-19 15:32 | XMS_ITS | Encounter Summary ---
Author Organization [facility] Address [address] [place] [address] Care Team Providers Care Product Tester Fiberglass Name Role Phone Unavailable Primary Care Provider Unavailabl e Encounter Details Date Type Department Care Team (Late st Contact Info) Description 10/24/2024 Lab Requisition [facility] - Main Lab [address] [facility] [place] [address] Sasha Storm PA [address] [place] [address] Gross hematuria Social History Tobacco Use Types [...] AM EDT) Final Diagnosis A. Urine, Voided, [id number]: Negative for high grade urothelial carcinoma. Results of UroVysion fluorescence in situ hybridization (FISH) testing: CEP3: Normal CEP7: Normal CEP17: Normal LSI 9p21: Normal Interpretation: Normal profile Controls stained appropriately. Note: The results are intended as a screening device and should be interpreted in association with other clinical and pathological findings. 11/04/2024 2:06 PM EDT [facility] HOSPITAL LAB Clinical Information Gross hematuria R31.0 Urine Cytology/FISH (now) 11/04/2024 2:06 PM EDT [facility] Gross Description A. Urine, Voided, [id number]: Received one ThinPrep slide for cytology and one ThinPrep slide for UroVysion FISH 11/04/2024 2:06 PM EDT [facility] Disclaimer Unless otherwise specified, all tissue is 10% NB formalin fixed and paraffin embedded. Technical pathology services provided by [facility] at [address] [place] [address] [address], [place] [address] (CLIA #[id number]/Екатерина Elliott MD, Foundry Operator) 11/04/2024 2:06 PM EDT [facility] Tissue Urine specimen from urethra / Unknown 10/18/2024 10/24/2024 9:17 AM EDT us Sasha TRIANA LAB PATHOLOGY ORDERABLES Final Result [facility] [address] [place] [address], documented in this encounter Visit Diagnoses Diagnosis Gross hematuria documented in this encounter
--- OUTSIDE RECORDS SUMMARY | 2025-01-19 15:32 | XMS_ITS | Clinical Summary ---
Author Organization [facility] Address [address] [facility] [address] [place] [address] Phone Care Team Providers Care Cigarette Inspector Name Role Phone Unknown, Unknown Primary Care [...] file Medical Devices Not on file Insurance [facility] MEDICARE REPLACEMENT [facility] MEDICARE REPLACEMENT Care Teams Cigarette Inspector Relationship Specialty Start Date End Date Unknown, Unknown, PCP - General 06/12/23 Additional Source Comments The information contained in this document represents components of the legal health record. It is not the complete legal health record.[facility]
[2025-01-19 16:10] VITALS: BP 136/80; PULSE 82; RESP 16; TEMP 36.7; O2SAT 98; BMI 27.4
--- NOTE | 2025-01-19 16:10 | A.OFFPC_ITS ---
Vital Signs 01/19/25 16:10 Height 5 ft 1 in Weight 145 lb BMI 27.4 BP 136/80 Blood Pressure Location Lt brachial Position Sitting Respiration 16 Pulse 82 Pulse Source Pulse Oximeter Temp 98.1 F Temp Source Oral Pulse Oximetry (%) 98 Oxygen Delivery Method Room Air Intake Visit Reasons: HTN f/u labs Intake Note: Pt is here today for f/u HTn and labs Allergies Penicillins (PCN) Allergy (Unknown, Verified 01/19/25 16:22) RASH pregabalin (From Lyrica) Adverse Reaction (Severe, Verified 01/19/25 16:22) skin peeling gabapentin Adverse Reaction (Unknown, Verified 01/19/25 16:22) Dizziness Medication List - Last Reconciled 01/19/25 by Bernadette De Souza MD amlodipine 5 mg PO .qd apixaban 5 mg PO DAILY aspirin 81 mg PO DAILY atorvastatin 40 mg PO DAILY [bed rail As directed NS] blood pressure test kit-medium As directed to monitor blood pressure blood sugar diagnostic (FreeStyle Lite Strips) qid blood-glucose meter (FreeStyle Lite Meter kit) As directed blood-glucose meter (FreeStyle Lite Meter kit) As directed blood-glucose sensor (FreeStyle Oren 3 Plus Sensor device) As directed use in place of freestyle 3 due to shortage of FS3 blood-glucose,quality project manager,cont (FreeStyle Oren 3 [place]) As directed chlorthalidone 25 mg PO DAILY cholestyramine (Cholestyramine Light) 4 grams PO DAILY famotidine (Pepcid) 20 mg PO BID folic acid 1 mg PO DAILY incontinence pad, liner, disp As directed-use up to 4 per day insulin glargine (Lantus Solostar U-100 Insulin) 16 units subcut BEDTIME lancets (FreeStyle Lancets) 4x daily levothyroxine 125 mcg PO DAILY levothyroxine 112 mcg PO DAILY lidocaine 5% 1 patch topical DAILY mzdrtc-plemqtbe-epajdvn 36,000-114,000- 180,000 unit (Creon) 2 caps PO BID metformin 1,000 mg PO BID 30 days metoprolol succinate ER 25 mg (1/2 x 50 mg) PO DAILY mycophenolate mofetil 1,000 mg (2 x 500 mg) PO TID@0800,1300,1900 nut.tx.gluc.intol,lac-free,soy (Glucerna oral liquid) 1 ea PO TID oxybutynin chloride ER 10 mg PO DAILY 2 weeks pen needle, diabetic once daily potassium citrate ER 10 mEq PO BID pyridostigmine bromide 180 mg (3 x 60 mg) PO TID [shower bench without back As directed] Tobacco use date assessed: 01/19/25 Fall risk assessment: No Falls in past year Last assessed Fall Risk: 01/19/25 Dental Screening Dental Screen Date: 01/19/25 Did you have a dental visit in the last 12 months?: Yes Did you have a dental problem in the last 6 months where you did not have access to dental care?: No Was dental information given to patient?: Patient has dentist HPI HTN f/u labs HPI Details - The patient is a 69-year-old female he re for follow-up on her anemia, diabetes mellitus and dyslipidemia. - Anemia: The patient reports mild anemi a with a hemoglobin level of 11.4 g/dL, slightly below the normal range of 12 g/dL. - She is not currently taking iron suppl ements and reports dizziness, most likely due to anemia. - Type 2 Diabetes Mellitus: The patient' s blood glucose level was 143 mg/dL, with an HbA1c of 7.4%, indicating a slight increase from the previous 7.1%. She is currently on metformin and insulin, with a recent adjustment to increase insulin dosage to 20 units at night. - Hyperlipidemia: The patient's LDL chol esterol level is 179 mg/dL, which is elevated. Currently on atorvastatin 40 mg daily - Smoking Cessation: The patient has sabrina t smoking since her last operation in July. - Preventative Care: The patient is due for a lung cancer screening in March, as she had one last year in March. [facility] Medical History Spasm of bladder Ureteral stone with hydronephrosis Hyperparathyroidism Tinnitus Hearing loss Anxiety and depression Diabetes mellitus, with long-term current use of insulin Urinary, incontinence, stress female Wheezing Vitamin B12 deficiency Occlusion of stent of peripheral artery Personal history of nicotine dependence Chronic low back pain History of CVA (cerebrovascular accident) (~10/2020) History of kidney stones Tubular adenoma of colon COVID-19 vaccine series declined Colitis without complication Myasthenia gravis Pernicious anemia Myasthenia gravis Urge urinary incontinence Microalbuminuria Vitamin D deficiency Hypothyroidism Multinodular thyroid HTN (hypertension) Surgical History History of cholecystectomy History of surgery History of amputation of toe Hx of blood clots Status post biopsy of thyroid gland (~2021) History of colonoscopy History of esophagogastroduodenoscopy (EGD) History of bilateral cataract extraction (~2019) History of parathyroidectomy History of lithotripsy (~2013) History of hernia repair History of hysterectomy (~1984) Family History Father Lung cancer Mother Asthma Diabetes HTN (hypertension) Heart attack Sister FH: mental illness Leukemia Mental health disorder Social History Household Members: None Housing: Apartment Alcohol intake: current Alcohol intake frequency: does not drink Patient Tobacco Use Status: Former Tobacco user Tobacco use type: Cigarette Years Smoked: 45 +/- e-Cigarette/Vaping Use: Never Used Advance Directives Date on File: 03/03/22 service: No Current occupational status: disabled Cognitive needs: No Hearing needs: No Vision needs: No Questionnaire Thrive Questionnaire Date Thrive assessed: 09/21/24 APARNA-7 AMB Questionnaire APARNA-7 Date APARNA - 7 assessed: 10/16/23 Source: Developed by Drs. Cristi De Luna, Bertha Robbins, Gallo Leiva and colleagues, with an educational jud from [employer]. Review of Systems Const Denies fever(s), Denies night sweats, Denies poor appetite and Denies weight loss Eyes Reports no additional complaints ENT Reports no additional complaints and Reports other (Dentition adequate) Card Reports no additional complaints Resp Reports no additional complaints GI Details: Denies abdominal pain, Denies melena, Denies hematochezia, Denies change in bow el habits and Denies heartburn Reports no additional complaints Musc Reports no additional complaints Skin/Breast Denies jaundice Neuro Denies Abnormal speech present Psych Reports no additional complaints Endo Reports no additional complaints Jesus/Lymph Reports no additional complaints Aller/Immun Reports no additional complaints Physical exam (Primary Care) Vital Signs: Last Vital Signs Temp 98.1 F 01/19/25 16:10 Pulse 82 01/19/25 16:10 Resp 16 01/19/25 16:10 BP 136/80 01/19/25 16:10 Pulse Ox 98 01/19/25 16:10 Oxygen Delivery Method Room Air 01/19/25 16:10 BMI result Body Mass Index 27.4 Tobacco/Smoking Status: Tobacco use Status Tobacco use date assessed 01/19/25 01/19/25 16:14 Patient Tobacco Use Status Former Tobacco user 01/19/25 16:14 Tobacco use type Cigarette 01/19/25 16:14 e-Cigarette/Vaping Use Never Used 01/19/25 16:14 Are you ready to quit: No Thrive Assessment: Date of Thrive Assessment Date Thrive assessed 09/21/24 01/19/25 16:14 Const General: no acute distress and alert Orientation/consciousness: patient oriented x3 HENMT Face and sinus: Yes face symmetric Mouth: Normal oral and palatal mucosa present, oropharynx normal and moist mucous membranes Eyes General: appearance normal, both eyes and all related structures Neck Neck: Yes full ROM, Yes no lymphadenopathy and Yes supple Resp Effort & Inspection: normal respiratory effort and able to speak in complete sentences Cardio Other: S1-S2 present regular rate and rhythm GI Palpation (GI): Soft to palpation, nontender and no guarding Auscultation: normal bowel sounds Neuro General: patient oriented x3, moves all extremities, no focal motor deficits, CN's II-XI intact bilaterally and decrease sensation to monofilament (In both lower extremities) Speech: No Abnormal speech present Extrem Other: No pedal edema noted, no gross bone deformity seen, Absent 5th digits in both feet Psych Appearance: grossly normal and well kempt Mental Status: mental status grossly normal Speech and movement: Normal speech and movement present Affect: normal affect Results Reviewed Results Reviewed: Laboratory Tests 12/19/24 12/27/24 11:54 12:00 Hgb A1c (Clinic) 7.1 H Urine Creatinine 139.02 Urine Microalbumin 103.0 Microalb/Creat Ratio 74.0 H Name: Magy Fitzgerald I Age/Sex: 69/F : 1955 Unit#: [id number] Attend Dr: Bernadette De Souza MD Re12/27/24 Status: DEP REF [facility] Disch: SPEC : [id number] CECI: 12/27/24 STATUS: COMP REQ : [id number] RECD: 12/27/[address]: Bernadette De Souza MD COMP: 12/27/24 ENTERED: 12/27/24 [facility] DR: ORDERED: Met Prof Fast, AST, ALT, Lipid Panel, Vitamin D 25-OH, Free T4, TSH Test Result Flag Reference Sodium 141 135-145 mmol/L Potassium 3.5 3.3-5.1 mmol/L CL 106 96-108 mmol/L CO2 29 22-29 mmol/L Gap 10 L 12-20 BUN 16 9-16 mg/dL Creat 0.66 0.5-1.4 mg/dL eGFR > 60 Chronic Kidney Disease: Estimated GFR < 60 mL/min/1.7 3m2 Severe Kidney Disease: Estimated GFR < 15 mL/min/1.73m2 FBS 143 H 60-99 mg/dL A fasting glucose of 126 mg/dl or greater on more than one occasion is considered diagnostic of diabetes. CA 9.7 # 8.4-10.2 mg/dL AST (GOT) 23 5-31 U/L ALT (GPT) 14 0-31 U/L Triglyceride 176 H <150 mg/dL Desirable Triglyceride: less than 150 mg/dL Borderline High Triglyceride 150-199 mg/dL High Triglyceride: 200-499 mg/dL Very High Triglyceride: greater than or equal to 5OO mg/dL Cholesterol 264 H <200 mg/dL Desirable Cholesterol: less than 200 mg/dL Borderline High Cholesterol: 200-239 mg/dL High Cholesterol: greater than 239 mg/dL LDL Calculated 179 H <100 mg/dL Desirable LDL: less than 100 mg/dL Near Optimal/Above Optimal LDL: 110-129 mg/dL Borderline High LDL: 130-159 mg/dL High LDL: 160-189 mg/dL Very High LDL: greater than or equal to 190 mg/dL HDL 50 >40 mg/dL Desirable HDL: greater than 40 mg/dL Note: This HDL assay may give artificially low results in patients with liver disease. Vitamin D 25-OH 40.2 >30 ng/mL Health Based Reference Values* < 20 ng/mL Deficient 20-30 ng/mL Insufficient > 30 ng/mL Sufficient *Holick MF. N Engl J Med. 2007;357:266-280 There is no well-established upper level of normal vitamin D levels. Some laboratories use 50 ng/mL as an upper limit of normal. However, toxicity is patient-dependent and may occur at any level. Careful correlation with the patient's presentation is necessary and, if there is concern for vitamin D toxicity, treatment should be considered irrespective of the serum level. Care must be taken in interpreting Vitamin D results from different laboratories and methodologies. Published data demonstrated that results from patients undergoing hemodialysis may show a negative bias when tested with various automated 25-OH vitamin D assays when compared to LC-MS/MS. When testing samples from patients whose predominant form of Vitamin D is Vitamin D2, such as patients receiving Vitamin D2 supplementation, results that are subtherapeutic should be confirmed with another method such as LC-MS/MS. Free T4 1.10 0.71-1.85 ng/dL TSH 3rd Gen. 0.53 0.32-4.0 uIU/mL TSH 3rd Generation ([facility]) Coding Level of Care Code Est Pt Level 4 (47586) Complex EM visit Add On G2211 Diagnoses Hypertension, unspecified type I10 Hypertension type: unspecified HLD (hyperlipidemia) E78.5 Diabetes mellitus, with long-term current use of insulin E11.9; Z79.4 Assessment & Plan Assessment & Plan (1) HTN (hypertension): Code(s): I10 - Essential (primary) hypertension Category: Medical Qualifiers: Hypertension type: unspecified Qualified Code(s): I10 - Essential (primary) hypertension (2) HLD (hyperlipidemia): Code(s): E78.5 - Hyperlipidemia, unspecified Category: Medical (3) Diabetes mellitus, with long-term current use of insulin: Code(s): E11.9 - Type 2 diabetes mellitus without complications; Z79.4 - snf (current) use of insulin Category: Medical Plan The patient will begin iron supplementation to address mild anemia, with instructions to take ferrous sulfate with food to minimize gastrointestinal side effects. The atorvastatin dosage will be increased to 80 mg to better manage elevated LDL cholesterol levels. For diabetes management, the insulin dosage will be increased to 20 units at night, and the patient will continue with metformin. Blood pressure better controlled on current dose of amlodipine 5 mg daily taken together with metoprolol and chlorthalidone at the same dose The patient is advised to schedule a lung cancer screening in March as part of her preventative care measures. Patient was informed and verbally consented to the use of an ambient scribe for clinic note documentation during this visit. Medications: New ferrous sulfate 325 mg PO DAILY 90 tabs 1RF atorvastatin (Lipitor) 80 mg PO DAILY 90 tabs 1RF
== END 2025-01-19 16:39 | disposition home or self-care (01) ==
LOC: HO.HMCC 15:29
PROVIDERS: PCP Internal Medicine; Visit Provider Internal Medicine
DX: I10 Essential (primary) hypertension (principal); E78.5 Hyperlipidemia, unspecified; E11.9 Type 2 diabetes mellitus without complications; Z79.4 Long term (current) use of insulin

== ENCOUNTER → 2025-01-19 15:29 | Outpatient (BNVA) | payer OTHER, SELFPAY | PROVIDERS: PCP Internal Medicine; Visit Provider Internal Medicine | DX: I10 Essential (primary) hypertension (principal); D64.9 Anemia, unspecified; E11.9 Type 2 diabetes mellitus without complications; E78.5 Hyperlipidemia, unspecified; Z79.4 Long term (current) use of insulin; Z87.891 Personal history of nicotine dependence; Z79.899 Other long term (current) drug therapy | CPT/HCPCS: 99212 ==

== ENCOUNTER 2025-03-13 12:52 | Outpatient (AMB) | payer OTHER, SELFPAY ==
--- OUTSIDE RECORDS SUMMARY | 2024-03-22 07:15 | XMS_ITS ---
Author Organization [facility] Address [address] [place] [address] Care Team Providers Care Double Cutter Name Role Phone Ap GODDARD, Bernadette Lyman Primary Care Provider Un available Terri Jacobo Unavailable [phone] Encounters Encounter Location Date Provider Diagnosis [address] [address] 03/22/2024 Terri Jacobo Plan Of Treatment Next Appt Details Provider Name:Terri ernandez, 05/02/2025 02:30:00 PM, [address] [place], [address], Progress Notes * Dannie FITZGERALDOB: (70 yo F)Acc No.[id number]:03/22/2024 Progress Note Patient: Arnol GUTHRIEba Provider: Socorro Jacobo DPM :1955 A ge:69 Y S ex:Female Date:03/22/2024 Address:[address] [place] [address] [address], [place], [place] Pcp:Jesus Hernandez Subjective: * Chief Complaints: * [...] Date: 1 Generated for Janessa perez/Wade/Jamee on: 0 03/13/2025 02:01 PM EDT
--- OUTSIDE RECORDS SUMMARY | 2024-05-10 11:15 | XMS_ITS ---
Author Organization [facility] Address [address] [place] [address] Care Team Providers Care Bank Manager Name Role Phone Ap GODDARD, Bernadette Lyman Primary Care Provider Un available Terri Jacobo Unavailable [phone] Encounters Encounter Location Date Provider Diagnosis [address] [address] 05/10/2024 Terri Jacobo Plan Of Treatment Next Appt Details Provider Name:Terri ernandez, 05/02/2025 02:30:00 PM, [address] [place], [address], Progress Notes * Dannie FITZGERALDOB: (70 yo F)Acc No.[id number]:05/10/2024 Progress Note Patient: Arnol GUTHRIEba Provider: Socorro Jacobo DPM :1955 A ge:69 Y S ex:Female Date:05/10/2024 Address:[address] [place] [address] [address], [place], [place] Pcp:Jesus Hernandez Subjective: * Chief Complaints: * [...] Date: 07/10/2023 Generated for Janessa perez/Wade/Jamee on: 0 03/13/2025 02:00 PM EDT
--- OUTSIDE RECORDS SUMMARY | 2024-07-05 12:00 | XMS_ITS ---
Author Organization [facility] Address [address] [facility] [place] [address] Care Team Providers Care Sheltered Workshop Executive Director Name Role Phone Ap GODDARD, Bernadette Lyman Primary Care Provider Un available Terri Jacobo Unavailable [phone] Medications Medication SIG (Take, Route, Frequency, Duration) [...] a day; Duration: 30 day(s) Active pyRIDostigmine [place] ER 180 MG 1 tablet Orally Once a day; Duration: 30 day(s) Active Cholecalciferol 25 MCG (1000 UT) 1 capsule Orally Once a day; Duration: 30 day(s) Active oxyBUTYnin Chloride 5 MG 1 tablet Orally Twice a day; Duration: 30 day(s) Active Potassium Active Encounters Encounter Location Date Provider Diagnosis [facility] [address] [address] 07/05/2024 Terri Jacobo Plan Of Treatment Next Appt Details Provider Name:Terri ernandez, 05/02/2025 02:30:00 PM, [address] [place] [address], [address], Progress Notes * Dannie FITZGERALDOB: 6 (70 yo F)Acc No.[id number]:07/05/2024 Progress Note Patient: Arnol GUTHRIEba Provider: Socorro Jacobo DPM :1955 A ge:69 Y S ex:Female Date:07/05/2024 Address:[address] [place], [place] [address] Pcp:Jesus Hernandez Subjective: * Chief Complaints: * [...] Orally Once a day , Taking pyRIDostigmine [place] ER 180 MG Tablet Extended Release 1 [...] 0 07/05/2024 Generated for Janessa perez/Wade/Jamee on: 0 03/13/2025 02:01 PM EDT History and Physical Notes * HPI (History of Present Illness) Category Sub-Category Detail Notes Category Not es At Risk footcare Pt States Last PCP Visit: Date: 4
--- OUTSIDE RECORDS SUMMARY | 2024-10-28 08:45 | XMS_ITS ---
Author Organization [facility] Address [address] [place] [address] Care Team Providers Care Treasury Accountant Name Role Phone Ap GODDARD, Bernadette Lyman Primary Care Provider Un available Terri Jacobo Unavailable [phone] Rain Encounters Encounter Location Date Provider Diagnosis [address] [address] 10/28/2024 Terri Jacobo Plan Of Treatment Next Appt Details Provider Name:Terri ernandez, 05/02/2025 02:30:00 PM, [address] [place] [address], [phone], Progress Notes * Dannie FITZGERALDOB: 6 (70 yo F)Acc No.[id number]:10/28/2024 Progress Note Patient: Shaila MORGANVIRY Magy Provider: Socorro Jacobo DPM :1955 A ge:69 Y S ex:Female Date:10/28/2024 Address:[address] [place] [address] [address], [place] Pcp:Jesus Hernandez Subjective: * Chief Complaints: * [...] 0 10/28/2024 Generated for Janessa perez/Wade/Jamee on: 0 03/13/2025 02:00 PM EDT
[2025-03-13 13:04] VITALS: BP 170/82; PULSE 94; BMI 28.0
--- NOTE | 2025-03-13 13:04 | MHC.OFFVIS ---
Vital Signs 03/13/25 13:04 Height 5 ft 1 in Weight 148 lb 2.41 oz BMI 28.0 BP 170/82 H Blood Pressure Location Lt brachial Position Sitting Pulse 94 Pulse Source Monitor Intake Visit Reasons: 6m follow up Intake Note: 6 mth f/up Lithographic Photographer Apprentice Required: No Accompanied by: Self / Same As Patient Allergies Penicillins (PCN) Allergy (Unknown, Verified 01/19/25 16:22) RASH pregabalin (From Lyrica) Adverse Reaction (Severe, Verified 01/19/25 16:22) skin peeling gabapentin Adverse Reaction (Unknown, Verified 01/19/25 16:22) Dizziness Medication List - Last Reconciled 03/13/25 by Duke Izaguirre MD amlodipine 5 mg PO .qd apixaban 5 mg PO DAILY aspirin 81 mg PO DAILY atorvastatin (Lipitor) 80 mg PO DAILY [bed rail As directed NS] blood pressure test kit-medium As directed to monitor blood pressure blood sugar diagnostic (FreeStyle Lite Strips) qid blood-glucose meter (FreeStyle Lite Meter kit) As directed blood-glucose meter (FreeStyle Lite Meter kit) As directed blood-glucose sensor (FreeStyle Oren 3 Plus Sensor device) As directed use in place of freestyle 3 due to shortage of FS3 blood-glucose,reading assistant,cont (FreeStyle Oren 3 [place]) As directed chlorthalidone 25 mg PO DAILY cholestyramine (Cholestyramine Light) 4 grams PO DAILY famotidine (Pepcid) 20 mg PO BID ferrous sulfate 325 mg PO DAILY folic acid 1 mg PO DAILY incontinence pad, liner, disp As directed-use up to 4 per day insulin glargine (Lantus Solostar U-100 Insulin) 16 units subcut BEDTIME lancets (FreeStyle Lancets) 4x daily levothyroxine 125 mcg PO DAILY levothyroxine 112 mcg PO DAILY lidocaine 5% 1 patch topical DAILY pqtbkw-uurtjkao-mihhgtr 36,000-114,000- 180,000 unit (Creon) 2 caps PO BID metformin 1,000 mg PO BID 30 days metoprolol succinate ER 25 mg (1/2 x 50 mg) PO DAILY mycophenolate mofetil 1,000 mg (2 x 500 mg) PO TID@0800,1300,1900 nut.tx.gluc.intol,lac-free,soy (Glucerna oral liquid) 1 ea PO TID oxybutynin chloride ER 10 mg PO DAILY 2 weeks pen needle, diabetic once daily potassium citrate ER 10 mEq PO BID pyridostigmine bromide 180 mg (3 x 60 mg) PO TID [shower bench without back As directed] HPI Comments Details: 70-year-old female with complex past medical issues including hypertension, hyperlipidemia, myasthenia gravis and CVA. She had CVA while she was in [place] in October 2020. She has myasthenia gravis and she is an active smoker but trying to quit. She is stable from myasthenia point of view. Her blood pressure is elevated. she is saying her sugar is also difficult to control. Her last visit she complains about nighttime snoring and daytime sleepiness and she was referred for sleep study which was normal. Today she is here for follow-up. She is complaining of cramping in her abdomen and nausea. She had 3 episodes of bloody stools yesterday. She is saying that she also noticed some blood in her urine. Difficult to say whether this is GI or blood loss but she is having a lot of cramping in her abdomen. This has continued into today. She said she had peptic ulcer disease approximately 10 years ago. 10/12/23: She returns for follow-up. It appears she underwent right femoral to below knee popliteal artery bypass on 09/01/[address] Padilla. She is saying that she has been doing well. She is smoking 1 cigarette per day. She is currently taking Plavix only. It appears she was given Xarelto but this was discontinued. She said she had some bleeding from her nose. Blood pressure is elevated. She is taking ramipril 10 mg daily and metoprolol succinate 25 mg daily. 01/20/24: She is here for follow-up. Her blood pressure is elevated. She continues to smoke 1 cigarette when she is under stress. She is taking medications regularly. She said she was following with neurologist at [facility] for myasthenia gravis and was periodically getting plasma exchange. For the last 5-6 months she has not seen anyone because her neurologist has left the practice. She is saying she has been feeling weak and there is some drooping of her right eyelid too. 05/02/2024: She is here for follow-up. Blood pressure in the office is 132/64. No chest pain or shortness of breath. She is following with Neurology for myasthenia gravis she continues to smoke. 09/05/2024: She is here for follow-up. In the last few months a lot happened to her. She was in [place] where she had leg pain and went to [facility]. Apparently she had surgery done there. She said the left catheters in there which appears to be they gave her tPA for thrombus. She said she came back and a week later she was in [facility] with leg issues and underwent surgery again. We will get records. She is now recovering and walking with a walker. She has stopped smoking. She is saying she is on Eliquis and baby aspirin now and Plavix has been stopped. 03/13/2025: She is here for follow-up. She is complaining of left-sided sharp chest pains off and on which lasts for 1-2 seconds. Story is quite atypical. Denying any other complaints. Her LDL cholesterol is quite high at 179. Total cholesterol 264 and triglyceride 176. Blood pressure is elevated also. [facility] Medical History Personal history of nicotine dependence Spasm of bladder Ureteral stone with hydronephrosis Hyperparathyroidism Tinnitus Hearing loss Anxiety and depression Diabetes mellitus, with long-term current use of insulin Urinary, incontinence, stress female Wheezing Vitamin B12 deficiency Occlusion of stent of peripheral artery Chronic low back pain History of CVA (cerebrovascular accident) (~10/2020) History of kidney stones Tubular adenoma of colon COVID-19 vaccine series declined Colitis without complication Myasthenia gravis Pernicious anemia Myasthenia gravis Urge urinary incontinence Microalbuminuria Vitamin D deficiency Hypothyroidism Multinodular thyroid HTN (hypertension) Surgical History History of cholecystectomy History of surgery History of amputation of toe Hx of blood clots Status post biopsy of thyroid gland (~2021) History of colonoscopy History of esophagogastroduodenoscopy (EGD) History of bilateral cataract extraction (~2019) History of parathyroidectomy History of lithotripsy (~2013) History of hernia repair History of hysterectomy (~1984) Family History Father Lung cancer Mother Asthma Diabetes HTN (hypertension) Heart attack Sister FH: mental illness Leukemia Mental health disorder Social History Household Members: None Housing: Apartment Alcohol intake: current Alcohol intake frequency: does not drink Patient Tobacco Use Status: Former Tobacco user Tobacco use type: Cigarette Years Smoked: 45 +/- e-Cigarette/Vaping Use: Never Used Advance Directives Date on File: 03/03/22 service: No Current occupational status: disabled Cognitive needs: No Hearing needs: No Vision needs: No Review of Systems Const Denies chills, Denies fatigue, Denies fever(s), Denies frequent falls, Denies weakness, Denies weight gain and Denies weight loss ENT Denies dizziness Card Denies chest pain, Denies leg edema, Denies lightheadedness, Denies palpitations, Denies dyspnea and Denies dyspnea on exertion Resp Denies cough, Denies dyspnea and Denies dyspnea on exertion GI Denies hematochezia Musc Denies abnormal gait, Denies muscle weakness, Denies numbness, Denies radiating pain into limb and Denies tingling Neuro Denies abnormal gait, Denies dizziness, Denies frequent falls, Denies numbness, Denies tingling and Denies weakness Endo Denies fatigue and Denies palpitations Physical Exam Vital Signs: Last Vital Signs Pulse 94 03/13/25 13:04 BP 170/82 H 03/13/25 13:04 BMI result Body Mass Index 28.0 GENERAL APPEARANCE: in no acute distress. HEART: no murmurs, regular rate and rhythm, S1, S2 normal. LUNGS: clear to auscultation bilaterally. ABDOMEN: normal, bowel sounds present, soft, nontender, nondistended. EXTREMITIES: no clubbing, cyanosis, or edema. PERIPHERAL PULSES: equal. NEUROLOGIC: AAO x 3. PSYCH: mood/affect full range. Office Procedures EKG Details: Sinus rhythm 94 beats per minute, normal axis, minimal voltage criteria for left ventricular hypertrophy, QTC 450 milliseconds. [id number]-[id number], Complete Assessment & Plan Assessment & Plan (1) HTN (hypertension): Code(s): I10 - Essential (primary) hypertension Category: Medical Qualifiers: Hypertension type: unspecified Qualified Code(s): I10 - Essential (primary) hypertension (2) PAD (peripheral artery disease): Code(s): I73.9 - Peripheral vascular disease, unspecified Category: Medical (3) HLD (hyperlipidemia): Code(s): E78.5 - Hyperlipidemia, unspecified Category: Medical Plan Very pleasant 70-year-old female who is here for follow-up. She has known history of peripheral vascular disease with previous right fem pop bypass. In 2024 she was admitted at [facility] with leg pain and from her description she had thrombectomy. After that she got admitted to [facility] a week later and had vascular surgery done again. She is on aspirin and apixaban currently. Blood pressure is significantly elevated. I have advised her to increase amlodipine to 5 mg twice a day. She will come back in 2 weeks for blood pressure check. Her cholesterol is significantly elevated and LDL cholesterol is 179. Her target is less than 70, ideally less than 55. Adding rosuvastatin 40 mg daily. We will repeat lipid panel before next office visit. Thank you for allowing me to participate in the care of your patient. Please feel free to contact me if you have any questions. Orders: Orders Lipid Panel 3 Months E78.5 - Hyperlipidemia, unspecified Medications: New rosuvastatin 40 mg PO DAILY 90 tabs 3RF Changed From amlodipine 5 mg PO .qd To amlodipine 5 mg PO BID 100 tabs 3RF Discontinued atorvastatin (Lipitor) Discontinued Reason: Doctor's Order 80 mg PO DAILY 90 tabs 1RF Coding Level of Care Code Est Pt Level 4 (42339) Diagnoses Hypertension, unspecified type I10 Hypertension type: unspecified PAD (peripheral artery disease) I73.9 HLD (hyperlipidemia) E78.5 CPT Codes EKG - CPT: 32877-[id number], Complete ([id number])
--- OUTSIDE RECORDS SUMMARY | 2025-03-13 14:00 | XMS_ITS | Clinical Summary ---
Author Organization [facility] Address [address] [place] [id number] Phone Care Team Providers Care Certified Juvenile Probation Officer Name Role Phone Unknown, Unknown Primary Care [...] file Medical Devices Not on file Insurance [facility] MEDIC[facility] REPLACEMENT [facility] MED[facility] REPLAC[facility] Care Teams Certified Juvenile Probation Officer Relationship Specialty Start Date End Date Unknown, Unknown, PCP - General 06/12/23 Additional Source Comments The information contained in this document represents components of the legal health record. It is not the complete legal health record.[facility]
--- OUTSIDE RECORDS SUMMARY | 2025-03-13 14:01 | XMS_ITS | Patient Health Record ---
[facility] Address [address] [place] [address] Care Team Providers Care Family Day Carer Name Role Phone Ap GODDARD, Bernadette Lyman Primary Care Provider Un available Jr Jacoboen Unavailable [phone] Allergies Allergen (clinical drug ingredient) Drug/Non Drug [...] a day; Duration: 30 day(s) Not-Taking pyRIDostigmine Klondike ER 180 MG 1 tablet Orally Once [...] Polyneuropathy due to type 2 diabetes mellitus (541372901) Type 2 diabetes mellitus with polyneuropathy (E11.42) Active confirmed Problem Bilateral atherosclerosis of arteries of lower limbs (disorder) ([id number] ) Atherosclerosis of artery of both lower extremities (I70.203) Active confirmed Vital Signs Blood pressure diastolic 80 mm Hg 12/28/2024 Height 5ft 1in in 12/28/2024 Blood pressure systolic 130 mm Hg 12/28/2024 Weight 140 lbs 12/28/2024 BMI 26.45 kg/m2 12/28/2024 Encounters Encounter Location Date Provider Diagnosis [address] [address] 12/28/2024 Terri Jacobo Atherosclerosis of artery of both lower extremities I70.203 ; Other hammer toe(s) (acquired), left foot M20.42 ; Type 2 diabetes mellitus with polyneuropathy E11.42 and Other hammer toe(s) (acquired), right foot M20.[address] [address] 03/17/2024 Terri Jacobo [address] [address] 04/25/2024 Terri Jacobo [address] [address] 07/05/2024 Terri Jacobo [address] [address] 12/28/2024 Terri Jacobo Assessments Encounter Date Diagnosis [...] Provider Name:Terri ernandez, 05/02/2025 02:30:00 PM, [address] [place], [address], Insurance Providers Payer Name Payer Address Payer Phone Subscriber Number Group Number Insured Name Patient Relationship to Insured Coverage Start Date Coverage End Date [facility] [employer] Claims [address] [place] [address] [phone] [id number] Magy Trejo Self - patient is the [...]
== END 2025-03-13 13:26 | disposition home or self-care (01) ==
LOC: HO.HCS 12:53
PROVIDERS: PCP Internal Medicine; Visit Provider Internal Medicine Cardiovascular Disease
DX: I10 Essential (primary) hypertension (principal); I73.9 Peripheral vascular disease, unspecified; E78.5 Hyperlipidemia, unspecified
CPT/HCPCS: 93010; 99214

== ENCOUNTER → 2025-03-13 12:52 | Outpatient (BNVA) | payer OTHER, SELFPAY | PROVIDERS: PCP Internal Medicine; Visit Provider Internal Medicine Cardiovascular Disease | DX: I10 Essential (primary) hypertension (principal); E78.5 Hyperlipidemia, unspecified; I73.9 Peripheral vascular disease, unspecified | CPT/HCPCS: 93005; 99212 ==

== ENCOUNTER 2025-03-17 12:33 | Outpatient (AMB) | payer OTHER, SELFPAY ==
--- OUTSIDE RECORDS SUMMARY | 2024-03-22 07:15 | XMS_ITS ---
Author Organization [facility] Address [address] [place] [address] Care Team Providers Care Medicaid Plan Compliance Director Name Role Phone Ap GODDARD, Bernadette Lyman Primary Care Provider Un available Terri Jacobo Unavailable [phone] Encounters Encounter Location Date Provider Diagnosis [address] [address] 03/22/2024 Terri Jacobo Plan Of Treatment Next Appt Details Provider Name:Terri ernandez, 05/02/2025 02:30:00 PM, [address] [place], [address], Progress Notes * Dannie FITZGERALDOB: (70 yo F)Acc No.[id number]:03/22/2024 Progress Note Patient: Arnol GUTHRIEba Provider: Socorro Jacobo DPM :1955 A ge:69 Y S ex:Female Date:03/22/2024 Address:[address] [place] [address] [address], [place], [place] Pcp:Jesus Hernandez Subjective: * Chief Complaints: * [...] Date: 1 Generated for Janessa perez/Wade/Jamee on: 01:11 PM EDT
--- OUTSIDE RECORDS SUMMARY | 2024-05-10 11:15 | XMS_ITS ---
Author Organization [facility] Address [address] [place] [address] Care Team Providers Care Certified Shorthand Reporter Name Role Phone Ap GODDARD, Bernadette Lyman Primary Care Provider Un available Terri Jacobo Unavailable [phone] Encounters Encounter Location Date Provider Diagnosis [address] [address] 05/10/2024 Terri Jacobo Plan Of Treatment Next Appt Details Provider Name:Terri ernandez, 05/02/2025 02:30:00 PM, [address] [place], [address], Progress Notes * Dannie FITZGERALDOB: (70 yo F)Acc No.[id number]:05/10/2024 Progress Note Patient: Arnol GUTHRIEba Provider: Socorro Jacobo DPM :1955 A ge:69 Y S ex:Female Date:05/10/2024 Address:[address] [place] [address] [address], [place], [place] Pcp:Jesus Hernandez Subjective: * Chief Complaints: * [...] Date: 07/10/2023 Generated for Janessa perez/Wade/Jamee on: 01:11 PM EDT
--- OUTSIDE RECORDS SUMMARY | 2024-07-05 12:00 | XMS_ITS ---
Author Organization [facility] Address [address] [facility] [place] [address] Care Team Providers Care Concrete Craftsman Name Role Phone Ap GODDARD, Bernadette Lyman Primary Care Provider Un available Terri Jacobo Unavailable [phone] Medications Medication SIG (Take, Route, Frequency, Duration) [...] a day; Duration: 30 day(s) Active pyRIDostigmine [place] ER 180 MG 1 tablet Orally Once a day; Duration: 30 day(s) Active Cholecalciferol 25 MCG (1000 UT) 1 capsule Orally Once a day; Duration: 30 day(s) Active oxyBUTYnin Chloride 5 MG 1 tablet Orally Twice a day; Duration: 30 day(s) Active Potassium Active Encounters Encounter Location Date Provider Diagnosis [facility] [address] [address] 07/05/2024 Terri Jacobo Plan Of Treatment Next Appt Details Provider Name:Terri ernandez, 05/02/2025 02:30:00 PM, [address] [place] [address], [phone], Progress Notes * Dannie FITZGERALDOB: 6 (70 yo F)Acc No.[id number]:07/05/2024 Progress Note Patient: Arnol GUTHRIEba Provider: Socorro Jacobo DPM :1955 A ge:69 Y S ex:Female Date:07/05/2024 Address:[address] [place], [place] [phone] Pcp:Jesus Hernandez Subjective: * Chief Complaints: * [...] Orally Once a day , Taking pyRIDostigmine [place] ER 180 MG Tablet Extended Release 1 [...] 0 07/05/2024 Generated for Janessa perez/Wade/Jamee on: 01:12 PM EDT History and Physical Notes * HPI (History of Present Illness) Category Sub-Category Detail Notes Category Not es At Risk footcare Pt States Last PCP Visit: Date: 4
--- OUTSIDE RECORDS SUMMARY | 2024-10-28 08:45 | XMS_ITS ---
Author Organization [facility] Address [address] [place] [address] Care Team Providers Care Conductor Yard Name Role Phone Ap GODDARD, Bernadette Lyman Primary Care Provider Un available Terri Jacobo Unavailable [phone] Rain Encounters Encounter Location Date Provider Diagnosis [address] [address] 10/28/2024 Terri Jacobo Plan Of Treatment Next Appt Details Provider Name:Terri ernandez, 05/02/2025 02:30:00 PM, [address] [place], [address], Progress Notes * Dannie FITZGERALDOB: 6 (70 yo F)Acc No.[id number]:10/28/2024 Progress Note Patient: Shaila MORGANVIRY Magy Provider: Socorro Jacobo DPM :1955 A ge:69 Y S ex:Female Date:10/28/2024 Address:[address] [place] [address] [address], [place] Pcp:Jesus Hernandez Subjective: * Chief Complaints: * [...] 10/28/2024 Generated for Janessa perez/Wade/Jamee on: 1 01:11 PM EDT
--- NOTE | 2025-03-17 12:54 | MHC.OFFVIS ---
Vital Signs 03/17/25 13:01 Height 5 ft 1 in Weight 147 lb 11.355 oz BMI 27.9 BP 172/82 H Blood Pressure Location Rt brachial Position Sitting Pulse 80 Pulse Source Pulse Oximeter Pulse Oximetry (%) 99 Oxygen Delivery Method Room Air Intake Visit Reasons: DM Intake Note: NEW Patient presents today to establish treatment for Type 2 Diabetes Mellitus: Last Diabetic eye exam was on: 11/2024, [facility] Last Podiatry exam was on: 12/28/2024, [facility] In[facility] Most recent HbA1c: 7.6%, 03/17/2025 Random Glucose: 167 mg/dL Friction Paint Machine Tender Required: No Accompanied by: Self / Same As Patient Allergies Penicillins (PCN) Allergy (Unknown, Verified 03/17/25 13:00) RASH pregabalin (From Lyrica) Adverse Reaction (Severe, Verified 03/17/25 13:00) skin peeling gabapentin Adverse Reaction (Unknown, Verified 03/17/25 13:00) Dizziness HPI Comments Details: 69 YO F with a past medical history of Myasthenia Gravis, 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 Last seen here on 09/15/2024 by Rebecca Best NP. This is the 1st time that I see this patient. Diabetes mellitus Initially diagnosed with T2DM in 2006 during a routine screening exam Currently using Metformin 1000 mg PO BID, Lantus 10 units daily Previous medications: Jardiance 25 mg PO daily (did not take this due to her being concerned about vaginal yeast infection). Tried and failed Januvia 100 mg PO daily. . She was on Trulicity but this was discontinued due to pancreatitis. She gets bloating and some diarrhea with metformin. Hypoglycemia: Not recently Macrovascular/microvascular complications: Has neuropathy, not painful. She is seen by podiatry. 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 Has nephropathy, on Ramipril 10 mg PO daily. Following with Dr. Mcneill from Nephrology. No history of CAD, but did have CVA in the past. Eye exam: has appointment in , prev visit Nov 2024. Weight: Overall stable. She experiences ups and downs. Toxic MNG: Hypothyroidsm: She moved here from [facility] and established care with new PCP. PCP ordered thyroid ultrasound 03/15/18. This revealed multiple thyroid nodules, 4 nodules within the R lobe and 4 nodules within the L lobe. Review of records from her former Cell Repairer in [facility] reveals prior FNA biopsy 08/23/13 of 3 nodules, all benign. The 3 nodules biopsied were the R lower pole 1.6 cm nodule- benign; R upper pole 1.1 cm nodule - benign; L upper 2.2 cm nodule - benign. She was found to be hyperthyroid with suppressed TSH, with uptake and scan consistent with a toxic MNG. She did meet with Dr. Becerra to discuss todal thyroidectomy, but this was thought to be a risky procedure as she requires preoperative plasmapheresis due to her myasthenia gravis. Discussion was held with Dr. Becerra with the decision to proceed with I131 ablation with FNA of any concerning appearing nodules. She underwent I131 ablation with 11.56 millicurries 05/02/19. She underwent FNA biopsy 07/04/2021 of her RMP 1.3 cm thyroid nodule, with benign cytology. At that time there were no nodules visualized in the L lobe of the thyroid. The L lobe was diffusely heterogenous with multiple pseudonodules, but no true nodules. She is currently on levothyroxine 125 mcg PO daily. . Hypercalcemia: She also reports a history of primary hyperparathyroidism. She had 2 parathyroid glands removed in 2013 in [facility]. She has had recurrent kidney stones-Last episode??. She does not take Vitamin D. She has had no fractures. She does report a history of Osteoporosis, but this does appear to have resolved as her recent BMD was normal as of 08/27/18. She did have labs that are concerning for recurrence of hyperparathyroidism with elevated PTH. Calcium remained normal, but on repeat labs 02/25/19 this was again elevated to 10.3. She was on HCTZ 25 mg PO daily. HCTZ was stopped and she had labs repeated 4 weeks later. Labs 06/24/2019 were WNL with PTH 46, Calcium 9.9. She remained off HCTZ but then developed obstructive nephrolithiasis which she was hospitalized for in [facility]. Labs in December 2024 showed Ca 9.7 and Vitamin D 40.2. Most recent Ca 10.0 om 03/16/25. Interval history 03/17/25 The patient sometimes skips insulin injections when blood sugar levels are high, rather than injecting daily. The patient experienced nocturnal hypoglycemia in the past, but not recently. Performed 3 patient did not bring her sensor/meter data to interpret. The patient's diet includes typical English foods such as mashed potatoes, but they have reduced their intake of sweets. No recent history of kidney stones. She reports feeling overall well Unfortunately, she cannot stay for the full visit to address thyroid nodules and hypothyroidism, which will be addressed in another visit. Physical Exam: - General: Well appearing, NAD. - CV: Regular heart rate and rhythm. Peripheral pulses normal, no edema. - Resp: Lungs clear to auscultation bilaterally. - Abdomen: Soft, nontender, nondistended. - Extremities/Neuro: No weakness or edema. Monofilament exam not performed. - Diabetic Foot Exam: Not performed. Labs Laboratory Tests 03/17/25 03/17/25 13:03 13:13 Glucose (Clinic) 167 H Hgb A1c (Clinic) 7.6 H Laboratory Tests 12/27/24 03/16/25 11:55 11:27 Sodium 138 Potassium 4.3 D Creatinine 0.68 Estimated GFR > 60 Calcium 10.0 Albumin 4.6 TSH 0.53 Free T4 1.10 Imaging Thyroid ultrasound 04/06/2024 FINDINGS: SIZE: Measurements of the thyroid lobes and nodules are given in sagittal, anteroposterior and transverse dimensions respectively. Right Thyroid Lobe: 3.8 x 1.3 x 1.1 cm, volume 2.9 mL. Previously 2.9 x 1.2 x 1.2 cm, volume 2.2 mL. Parenchyma: The gland echotexture is heterogeneous. Thyroid vascularity is normal. Left Thyroid Lobe: 3.7 x 1.2 x 1.0 cm, volume 2.3 mL. Previously 3.2 x 1.3 x 1.0 cm, volume 2.2 mL. Parenchyma: The gland echotexture is heterogeneous. Thyroid vascularity is normal. Isthmus: 0.2 cm in maximum AP dimension. Previously 0.2 cm. Estimated total number of nodules greater than or equal to 1 cm: 1. Director Internal Control nodules are described as follows: 1. Location: Right mid. Size: 0.4 x 0.3 x 0.3 cm, volume 0.03 mL. Previously: 0.4 x 0.4 x 0.4 cm, volume 0.03 mL. Nodule characteristics: Composition: Solid (2). Echogenicity: Isoechoic (1). Shape: Not taller than wide (0). Margins: Smooth (0). Echogenic Foci: None (0). ACR TI-RADS total points: 3 Previous: 3 ACR TI-RADS category: 3 Previous: 3 Significant change in size (>/= 20% in 2 dimensions and minimal increase of 2 mm or 50% or greater increase in volume): No Change in features: No Change in ACR TI-RADS risk category: No 2. Location: Right mid/inferior. Size: 1.3 x 0.9 x 0.8 cm, volume 0.48 mL. Previously: 1.2 x 0.9 x 0.9 cm, volume 0.39 mL. Nodule characteristics: Composition: Solid (2). Echogenicity: Isoechoic (1). Shape: Taller than wide (3). Margins: Smooth (0). Echogenic Foci: Peripheral calcifications (2). ACR TI-RADS total points: 8 Previous: 5 ACR TI-RADS category: 5 Previous: 4 Significant change in size (>/= 20% in 2 dimensions and minimal increase of 2 mm or 50% or greater increase in volume): No Change in features: Yes Change in ACR TI-RADS risk category: Yes 3. Location: Left superior. Size: 0.8 x 0.5 x 0.5 cm, volume 0.10 mL. Previously: 0.5 x 0.5 x 0.4 cm, volume 0.03 mL. Nodule characteristics: Composition: Solid (2). Echogenicity: Hypoechoic (2). Shape: Not taller than wide (0). Margins: Smooth (0). Echogenic Foci: Macrocalcifications (1). ACR TI-RADS total points: 5 Previous: 4 ACR TI-RADS category: 4 Previous: 4 Significant change in size (>/= 20% in 2 dimensions and minimal increase of 2 mm or 50% or greater increase in volume): Yes Change in features: Yes Change in ACR TI-RADS risk category: No 4. Location: Left inferior. Size: 0.5 x 0.3 x 0.3 cm, volume 0.02 mL. Previously: New since the previous study. Nodule characteristics: Composition: Solid (2). Echogenicity: Isoechoic (1). Shape: Not taller than wide (0). Margins: Smooth (0). Echogenic Foci: None (0). ACR TI-RADS total points: 3 ACR TI-RADS category: 3 NODES: No lymphadenopathy is seen in the tissue surrounding the thyroid gland. IMPRESSION: 1. Heterogeneous, hypervascular, multinodular thyroid gland with bilateral macrocalcifications. 2. A 1.3 cm right [id number]-[id number] pole TR 5 thyroid nodule meets criteria for biopsy. Fine-needle aspiration recommended if not already performed. 3. Additional subcentimeter thyroid nodules, largest 0.8 cm left upper TR 4. [facility] Medical History Personal history of nicotine dependence Spasm of bladder Ureteral stone with hydronephrosis Hyperparathyroidism Tinnitus Hearing loss Anxiety and depression Diabetes mellitus, with long-term current use of insulin Urinary, incontinence, stress female Wheezing Vitamin B12 deficiency Occlusion of stent of peripheral artery Chronic low back pain History of CVA (cerebrovascular accident) (~10/2020) History of kidney stones Tubular adenoma of colon COVID-19 vaccine series declined Colitis without complication Myasthenia gravis Pernicious anemia Myasthenia gravis Urge urinary incontinence Microalbuminuria Vitamin D deficiency Hypothyroidism Multinodular thyroid HTN (hypertension) Surgical History History of cholecystectomy History of surgery History of amputation of toe Hx of blood clots Status post biopsy of thyroid gland (~2021) History of colonoscopy History of esophagogastroduodenoscopy (EGD) History of bilateral cataract extraction (~2019) History of parathyroidectomy History of lithotripsy (~2013) History of hernia repair History of hysterectomy (~1984) Family History Father Lung cancer Mother Asthma Diabetes HTN (hypertension) Heart attack Sister FH: mental illness Leukemia Mental health disorder Social History Household Members: None Housing: Apartment Alcohol intake: current Alcohol intake frequency: does not drink Patient Tobacco Use Status: Former Tobacco user Tobacco use type: Cigarette Years Smoked: 45 +/- e-Cigarette/Vaping Use: Never Used Advance Directives Date on File: 03/03/22 service: No Current occupational status: disabled Cognitive needs: No Hearing needs: No Vision needs: No Physical Exam Vital Signs: Last Vital Signs Pulse 80 03/17/25 13:01 BP 172/82 H 03/17/25 13:01 Pulse Ox 99 03/17/25 13:01 Oxygen Delivery Method Room Air 03/17/25 13:01 BMI result Body Mass Index 27.9 Results AMB Hemoglobin A1c AMB Hemoglobin A1c 7.6 % Last Edit by GRACE Madden on 03/17/25 13:50 AMB Hemoglobin A1c previously reported as [id number] Idalia Zhou 03/17/25 13:50 Results Reviewed Results Reviewed: Laboratory Last Values Glucose (Clinic) 167 mg/dL (60-115) H 03/17/25 13:03 Hgb A1c (Clinic) 7.6 % (4.0-6.0) H 03/17/25 13:13 Assessment & Plan Assessment & Plan (1) Diabetes mellitus, with long-term current use of insulin: Code(s): E11.9 - Type 2 diabetes mellitus without complications; 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 Patient's suboptimal control likely related to medication noncompliance and dietary transgressions. Advise the patient to monitor blood glucose at least 4 times per day Counseled the patient on importance of medication compliance to achieve better diabetes control Discussed with the patient the importance of low carb diet to avoid diabetes complications and weight gain Provided the patient with the you were 3 sensor plus sample and prescribed Oren sensor 3+ (2) Primary hyperparathyroidism: Code(s): E21.0 - Primary hyperparathyroidism Category: Medical Plan: She also reports a history of primary hyperparathyroidism. She had 2 parathyroid glands removed in 2013 in [facility]. She did have episode of nephrolithiasis in the past, but not recently. She has not been on hydrochlorothiazide since around 2019. Her more recent calcium is 10.0 on 03/16/2025. She is not currently taking vitamin-D supplementation. Discussed with the patient the importance of taking vitamin-D supplementation Advised the patient that calcium has been stable in the last 2 measurements in December and March 2025, we will likely monitor it again in 6 months. Advised the patient that I will order a renal ultrasound to rule out nonobstructive nephrolithiasis Advised the patient that I would likely order a 24 hours urine calcium in our next visit (3) Multinodular thyroid: Code(s): E04.2 - Nontoxic multinodular goiter Category: Medical (4) Hypothyroidism: Code(s): E03.9 - Hypothyroidism, unspecified Category: Medical Qualifiers: Hypothyroidism type: postablative Qualified Code(s): E89.0 - Postprocedural hypothyroidism Plan Patient with history of multiple thyroid nodules in both right and left thyroid levels, for which she underwent biopsy in 08/2013 ( R lower pole 1.6 cm nodule; R upper pole 1.1 cm nodule; L upper 2.2 cm nodule), all resulted in benign. She was also found to have a toxic nodule for which she underwent radioactive iodine ablation with 11.56 millicurries 05/02/19 after she was deemed a high risk for thyroidectomy due to her history of myasthenia gravis. She underwent FNA biopsy 07/04/2021 of her RM pole 1.3 cm thyroid nodule, with benign cytology. Most recent ultrasound in March/2024 showed some increased on some of the thyroid nodules, but the most significant 1 that was noticed to be changed, was already biopsied in 2021 and was benign. Due to time constraints the patient was unable to stay for the phone visit. We deferred the evaluation of thyroid nodule hypothyroidism today I recommended the patient to obtain labs and a new thyroid ultrasound. We will have a new visit on in a month just for evaluation thyroid nodules and hypothyroidism Orders: Orders Thyroid Stimulating Hormone Today E04.2 - Nontoxic multinodular goiter, E89.0 - Postprocedural hypothyroidism US thyroid Today E04.2 - Nontoxic multinodular goiter, E89.0 - Postprocedural hypothyroidism AMB Hemoglobin A1c Today E11.9 - Type 2 diabetes mellitus without complications, Z79.4 - longterm (current) use of insulin US renal BI Today E21.0 - Primary hyperparathyroidism Free T4 (Free Thyroxine) Today E04.2 - Nontoxic multinodular goiter, E89.0 - Postprocedural hypothyroidism Lipid Panel Today E11.9 - Type 2 diabetes mellitus without complications, Z79.4 - longterm (current) use of insulin Microalbumin, Random (w Creat) Today E11.9 - Type 2 diabetes mellitus without complications, 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 Medications: Refilled blood-glucose sensor (FreeStyle Oren 3 Plus Sensor device) As directed use in place of freestyle 3 due to shortage of FS3 2 ea 6RF E11.9 - Type 2 diabetes mellitus without complications, 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
[2025-03-17 13:01] VITALS: BP 172/82; PULSE 80; O2SAT 99; BMI 27.9
[2025-03-17 13:09] LABS: Glucose, Whole Blood 167 mg/dL (60-115)
--- OUTSIDE RECORDS SUMMARY | 2025-03-17 13:11 | XMS_ITS | Clinical Summary ---
Author Organization [facility] Address [address] [place] [phone] Phone Care Team Providers Care Gift Shop Clerk Name Role Phone Unknown, Unknown Primary Care [...] file Medical Devices Not on file Insurance [facility] MED[employer] REPLACEMENT [facility] MED[employer] REPLACEMENT Care Teams Gift Shop Clerk Relationship Specialty Start Date End Date Unknown, Unknown, PCP - General 06/12/23 Additional Source Comments The information contained in this document represents components of the legal health record. It is not the complete legal health record.[facility]
--- OUTSIDE RECORDS SUMMARY | 2025-03-17 13:12 | XMS_ITS | Encounter Summary ---
Author Organization [facility] Address [address] [place] [address] Care Team Providers Care Online Trader Name Role Phone Unavailable Primary Care Provider Unavailabl e Encounter Details Date Type Department Care Team (Late st Contact Info) Description 10/24/2024 Lab Requisition [facility] - Main Lab [address] [facility] [place] [address] Sasha Storm PA [address] [place] [address] Gross hematuria Social History Tobacco Use Types [...] AM EDT) Final Diagnosis A. Urine, Voided, [id number]: Negative for high grade urothelial carcinoma. Results of UroVysion fluorescence in situ hybridization (FISH) testing: CEP3: Normal CEP7: Normal CEP17: Normal LSI 9p21: Normal Interpretation: Normal profile Controls stained appropriately. Note: The results are intended as a screening device and should be interpreted in association with other clinical and pathological findings. 11/04/2024 2:06 PM EDT [facility] HOSP[facility] LAB Clinical Information Gross hematuria R31.0 Urine Cytology/FISH (now) 11/04/2024 2:06 PM EDT [facility] Gross Description A. Urine, Voided, [id number]: Received one ThinPrep slide for cytology and one ThinPrep slide for UroVysion FISH 11/04/2024 2:06 PM EDT [facility] Disclaimer Unless otherwise specified, all tissue is 10% NB formalin fixed and paraffin embedded. Technical pathology services provided by [facility] at [address] [place] [address] [address], [place] [address] (CLIA #[id number]/Екатерина Elliott MD, Instructional Manager) 11/04/2024 2:06 PM EDT [facility] Tissue Urine specimen from urethra / Unknown 10/18/2024 10/24/2024 9:17 AM EDT us Sasha [facility] PATHOLOGY ORDERABLES Final Result [facility] [address] [place] [address], documented in this encounter Visit Diagnoses Diagnosis Gross hematuria documented in this encounter
--- OUTSIDE RECORDS SUMMARY | 2025-03-17 13:12 | XMS_ITS | Patient Health Record ---
Author Organization [facility] Address [address] [facility] [facility] [place] [address] Care Team Providers Care Application Support Developer Name Role Phone Ap GODDARD, Bernadette Lyman Primary Care Provider Un available Jr Jacoboen Unavailable [phone] Allergies Allergen (clinical drug ingredient) Drug/Non Drug [...] a day; Duration: 30 day(s) Not-Taking pyRIDostigmine [place] ER 180 MG 1 tablet Orally Once [...] Polyneuropathy due to type 2 diabetes mellitus ([id number]) Type 2 diabetes mellitus with polyneuropathy (E11.42) Active confirmed Problem Bilateral atherosclerosis of arteries of lower limbs (disorder) ([id number] ) Atherosclerosis of artery of both lower extremities (I70.203) Active confirmed Vital Signs Blood pressure diastolic 80 mm Hg 12/28/2024 Height 5ft 1in in 12/28/2024 Blood pressure systolic 130 mm Hg 12/28/2024 Weight 140 lbs 12/28/2024 BMI 26.45 kg/m2 12/28/2024 Encounters Encounter Location Date Provider Diagnosis [address] [address] 12/28/2024 Terri Jacobo Atherosclerosis of artery of both lower extremities I70.203 ; Other hammer toe(s) (acquired), left foot M20.42 ; Type 2 diabetes mellitus with polyneuropathy E11.42 and Other hammer toe(s) (acquired), right foot M20.[address] [address] 03/17/2024 Terri Jacobo [address] [address] 04/25/2024 Terri Jacobo [address] [address] 07/05/2024 Terri Jacobo [address] [address] 12/28/2024 Terri Jacobo Assessments Encounter Date Diagnosis [...] Provider Name:Terri ernandez, 05/02/2025 02:30:00 PM, [address] [place], [address], Insurance Providers Payer Name Payer Address Payer Phone Subscriber Number Group Number Insured Name Patient Relationship to Insured Coverage Start Date Coverage End Date [facility] [employer] Claims [address] [place] [id number] [phone] [id number] Magy Trejo Self - patient is the [...]
--- OUTSIDE RECORDS SUMMARY | 2025-03-17 13:12 | XMS_ITS | Clinical Summary ---
Author Organization [address] Address [address] [place] [address] Phone Care Team Providers Care Teacher Education Director Name Role Phone Unavailable Primary Care Provider Unavailabl e Social History Tobacco Use Types Packs/Day Years Used Date Smoking Tobacco: Never Assessed Comments Unknown Sex and Gender Information Value Date Recorded Sex Assigned at Not on file Legal Sex Female 4:52 AM EST Gender Identity Not on file Sexual Orientation Not on file Plan of Treatment Health Maintenance Due Date Last Done Comments Colorectal Cancer Screening: Colonoscopy 1956 Diabetes: Annual Foot Exam 1966 Diabetes: Annual Retina Eye Exam 1966 Zoster Vaccines (1 of 2) 1975 RSV Immunization Adult Patients (1 - Risk 60-74 years 1-dose series) 2016 Breast Cancer Screening 06/19/2017 06/19/2015 COVID-19 Vaccine (3 - Pfizer risk series) 06/03/2021 05/06/2021, 04/15/2021 Pneumococcal Vaccine: 50+ Years (3 of 3 - PCV) 02/28/2022 02/28/2021, 05/22/2016, 04/01/2012 Depression Screening 06/15/2024 Diabetes: Annual Urine Albumin-Creatinine Ratio (uACR) 10/24/2024 Diabetes: Blood Sugar Control Test (HGBA1C) 10/24/2024 Falls Risk Assessment 10/24/2024 Hepatitis C Screening 10/24/2024 Osteoporosis Screening (Bone Density Screening) 10/24/2024 03/07/2014 Social Influencers of Health Screening 10/24/2024 Influenza Vaccine (#1) 2025 5, 06/01/2014, 04/07/2013, Additional history exists Diabetes: Annual GFR (Glomerular Filtration Rate) 07/02/2025 07/02/2024, 07/02/2024, 07/01/2024, Additional history exists Hypertension/CHF/CAD Annual BMP Blood Test 07/02/2025 07/02/2024, 07/02/2024, 07/01/2024, Additional history exists DTaP,Tdap,and Td Vaccines (2 - Td or Tdap) 04/30/2027 04/30/2017 Cholesterol Screening (Lipid Panel) 06/26/2029 06/26/2024 HIB Vaccines Aged Out No longer eligi ble based on patient's age to complete this topic HPV Vaccines Aged Out No longer eligi ble based on patient's age to complete this topic Hepatitis A Vaccines Aged Out No long er eligible based on patient's age to complete this topic Hepatitis B Vaccines Aged Out No long er eligible based on patient's age to complete this topic IPV Vaccines Aged Out No longer eligi ble based on patient's age to complete this topic MMR Vaccines Aged Out No longer eligi ble based on patient's age to complete this topic Meningococcal ACWY Vaccine Aged Out N o longer eligible based on patient's age to complete this topic Meningococcal B Vaccine Aged Out No l onger eligible based on patient's age to complete this topic RSV Immunization Patients Under 20 months Aged Out No longer eligible based on patient's age to complete this topic Varicella Vaccines Aged Out No longer eligible based on patient's age to complete this topic Insurance [place] - [place] [facility] Member Subscriber Plan / Payer (Ef fective 2021-Present) Name:Magy Fitzgerald i Relation to Subscriber:Self Name:Amilcar Magy I Payer ID:[id number] Group ID:[id number] Type:Not on file Address: [address] [place] [place] [id number]
== END 2025-03-17 13:42 | disposition home or self-care (01) ==
LOC: HO.ENCR 12:34
PROVIDERS: PCP Internal Medicine; Visit Provider Student in an Organized Health Care Education/Training Program
DX: E11.9 Type 2 diabetes mellitus without complications (principal); Z79.4 Long term (current) use of insulin; E21.0 Primary hyperparathyroidism; E04.2 Nontoxic multinodular goiter; E89.0 Postprocedural hypothyroidism
CPT/HCPCS: 99214

== ENCOUNTER → 2025-03-17 12:33 | Outpatient (BNVA) | payer OTHER, SELFPAY | PROVIDERS: PCP Internal Medicine; Visit Provider Student in an Organized Health Care Education/Training Program | DX: E04.2 Nontoxic multinodular goiter (principal); E11.9 Type 2 diabetes mellitus without complications; Z79.4 Long term (current) use of insulin; E21.0 Primary hyperparathyroidism; E03.9 Hypothyroidism, unspecified | CPT/HCPCS: 82947; 83036; 99212 ==

== ENCOUNTER 2025-03-27 12:54 | Outpatient (REF) | payer OTHER, SELFPAY ==
--- OUTSIDE RECORDS SUMMARY | 2024-03-22 07:15 | XMS_ITS ---
Author Organization [facility] Address [address] [place] [address] Care Team Providers Care Ore Trimmer Name Role Phone Ap GODDARD, Bernadette Lyman Primary Care Provider Un available Terri Jacobo Unavailable [phone] Encounters Encounter Location Date Provider Diagnosis [address] [address] 03/22/2024 Terri Jacobo Plan Of Treatment Next Appt Details Provider Name:Terri ernandez, 05/02/2025 02:30:00 PM, [address] [place], [address], Progress Notes * Dannie FITZGERALDOB: (70 yo F)Acc No.[id number]:03/22/2024 Progress Note Patient: Arnol GUTHRIEba Provider: Socorro Jacobo DPM :1955 A ge:69 Y S ex:Female Date:03/22/2024 Address:[address] [place] [address] [address], [place], [place] Pcp:Jesus Hernandez Subjective: * Chief Complaints: * [...] 1 Generated for Janessa perez/Wade/Jamee on: 1 12:57 PM EDT
--- OUTSIDE RECORDS SUMMARY | 2024-05-10 11:15 | XMS_ITS ---
Author Organization [facility] Address [address] [place] [address] Care Team Providers Care Professor Of Apologetics Name Role Phone Ap GODDARD, Bernadette Lyman Primary Care Provider Un available Terri Jacobo Unavailable [phone] Encounters Encounter Location Date Provider Diagnosis [address] [address] 05/10/2024 Terri Jacobo Plan Of Treatment Next Appt Details Provider Name:Terri ernandez, 05/02/2025 02:30:00 PM, [address] [place], [address], Progress Notes * Dannie FITZGERALDOB: (70 yo F)Acc No.[id number]:05/10/2024 Progress Note Patient: Arnol GUTHRIEba Provider: Socorro Jacobo DPM :1955 A ge:69 Y S ex:Female Date:05/10/2024 Address:[address] [place] [address] [address], [place] Pcp:Jesus Hernandez Subjective: * Chief Complaints: * [...] Date: 07/10/2023 Generated for Janessa perez/Wade/Jamee on: 12:57 PM EDT
--- OUTSIDE RECORDS SUMMARY | 2024-10-28 08:45 | XMS_ITS ---
Author Organization [facility] Address [address] [place] [address] Care Team Providers Care Customer Field Representative Name Role Phone Ap GODDARD, Bernadette Lyman Primary Care Provider Un available Terri Jacobo Unavailable [phone] Rain Encounters Encounter Location Date Provider Diagnosis [address] [address] 10/28/2024 Terri Jacobo Plan Of Treatment Next Appt Details Provider Name:Terri ernandez, 05/02/2025 02:30:00 PM, [address] [place] [address], [phone], Progress Notes * Dannie FITZGERALDOB: 6 (70 yo F)Acc No.[id number]:10/28/2024 Progress Note Patient: Shaila MORGANVIRY Magy Provider: Socorro Jacobo DPM :1955 A ge:69 Y S ex:Female Date:10/28/2024 Address:[address] [place] [address] [address], [place] Pcp:Jesus Hernandez Subjective: * Chief Complaints: * [address] Rain. * Medical History: Objective: * Vitals: Assessment: Plan: * Treatment: * Images: * The named appointment provid er may or may not be the originator of this progress note, and it is not deemed complete until electronically signed by the appointment provider. Sign off status: Pending * Provider: Socorro Jacobo, DPJesus Date: 0 10/28/2024 Generated for Janessa perez/Wade/Jamee on: 1 12:57 PM EDT
--- OUTSIDE RECORDS SUMMARY | 2025-03-27 12:57 | XMS_ITS | Clinical Summary ---
Author Organization [facility] Address [address] [facility] [address] [place] [address] Phone Care Team Providers Care Hose Wrapper Name Role Phone Unknown, Unknown Primary Care [...] file Medical Devices Not on file Insurance [facility] MEDICARE REPLACEMENT [facility] MEDICARE REPLACEMENT Care Teams Hose Wrapper Relationship Specialty Start Date End Date Unknown, Unknown, PCP - General 06/12/23 Additional Source Comments The information contained in this document represents components of the legal health record. It is not the complete legal health record.[facility]
--- OUTSIDE RECORDS SUMMARY | 2025-03-27 12:57 | XMS_ITS | Clinical Summary ---
Author Organization [facility] Address [address] [place] [address] [place] [address] Phone Care Team Providers Care Auto Parker Name Role Phone Sabas De Souza MD Primary Care Provider +1- [phone] Allergies Active Allergy Reactions Criticality Noted Date [...] MEALS DO NOT CRUSH/CHEW/SP LIT 180 tablet 03/23/20 25 Active potassium citrate 10 MEQ (1080 MG) CR tablet TAKE 1 TABLET BY MOUTH IN THE MORNING AND EVENING WITH MEALS DO NOT CRUSH/CHEW/SP LIT 180 tablet 12/27/19 25 025 Discontinued Active Problems Problem Noted [...] Encounters Date Type Department Care Team Description 03/23/2025 Refill [facility] [address] [place] [address] Ambrosio Brewer MD from Last 3 Months Immunizations Immunization [...] Visit [facility] [address] [place] [address] Misael Mcneill MD [address] [facility] [address] [place] [address] Health Maintenance Due Date Last [...] Relevant to Health Maintenance [place] [address] ([id number]) [facility] ([id number]) Care Teams Auto Parker Relationship Specialty Start Date End Date Sabas De Souza MD [address] [place] [address] [place] [address] PCP - General Internal Medicine 12/24/20
--- OUTSIDE RECORDS SUMMARY | 2025-03-27 12:58 | XMS_ITS | Encounter Summary ---
Author Organization [facility] Address [address] [facility] [address] [place] [address] Phone Care Team Providers Care Extraction Supervisor Name Role Phone Sabas De Souza MD Primary Care Provider +1- [phone] Encounter Details Date Type Department Care Team (Late Contact Info) Description 10/28/2021 Telephone [facility] [address] [facility] [address] [place] [address] Misael Mcneill MD [address] [facility] [address] [place] [phone] Social History Tobacco Use Types Packs/Day Years [...] speak with you. She was at the [facility] ER and was told she has kidney stones. She would like to speak with you about this. Please call her back at [phone] Thank you documented in this encounter Plan of Treatment Upcoming Encounters Date Type Department Care Team (Late st Contact Info) Description 10/19/2025 2:15 PM EDT Office Visit [facility] [address] [place] [address] Misael Mcneill MD [address] [facility] [address] [place] [phone] documented as of this encounter Visit Diagnoses Not on filedocumented in this encounter Care Teams Extraction Supervisor Relationship Specialty Start Date End Date Sabas De Souza MD [facility] [place] [address] PCP - General Internal Medicine 12/24/20 documented as of this encounter
--- OUTSIDE RECORDS SUMMARY | 2025-03-27 12:58 | XMS_ITS | Encounter Summary ---
Author Organization [facility] Address [address] [facility] 200 [place] [address] Phone Care Team Providers Care Cath Lab Radiological Technologist Name Role Phone Sabas De Souza MD Primary Care Provider +1- [phone] Encounter Details Date Type Department Care Team ([facility] Contact Info) Description 12/03/2020 Orders Only [facility] [address] [place] [address] Misael Mcneill MD [address] [facility] [address] [place] [phone] Persistent proteinuria; Type 2 diabetes mellitus with [...] Upcoming Encounters Date Type Department Care Team ([facility] Contact Info) Description 10/19/2025 2:15 PM EDT Office Visit [facility] [address] [place] [phone] Misael Mcneill MD [address] [facility] [address] [place] [address] documented as of this encounter Visit Diagnoses Diagnosis Persistent proteinuria Type 2 diabetes mellitus with diabetic chronic kidney disease (HCC) Hypertensive disorder documented in this encounter Care Teams Cath Lab Radiological Technologist Relationship Specialty Start Date End Date Sabas De Souza MD [facility] [place] [address] PCP - General Internal Medicine 12/24/20 documented as of this encounter
--- OUTSIDE RECORDS SUMMARY | 2025-03-27 12:58 | XMS_ITS | Clinical Summary ---
Author Organization [address] Address [address] [place] [address] Phone Care Team Providers Care Tumbler Machine Operator Name Role Phone Unavailable Primary [...] complete this topic Insurance [place] [facility] Member Subscriber Plan / Payer (Ef fective 2021-Present) Name:Magy Fitzgerald i Relation to Subscriber:Self Name:Amilcar Magy I Payer ID:[id number] Group ID:[id number] Type:Not on file Address: [address] [address]
--- OUTSIDE RECORDS SUMMARY | 2025-03-27 12:58 | XMS_ITS | Encounter Summary ---
Author Organization [facility] Address [address] [place] [address] Care Team Providers Care Crowning Inspector Name Role Phone Unavailable Primary Care Provider Unavailabl e Encounter Details Date Type Department Care Team (Late st Contact Info) Description 10/24/2024 Lab Requisition [facility] - Main Lab [address] [facility] [place] [address] Sasha Storm PA [address] [place] [address] Gross hematuria Social History Tobacco Use Types [...] AM EDT) Final Diagnosis A. Urine, Voided, [id number]: Negative for high grade urothelial carcinoma. Results of UroVysion fluorescence in situ hybridization (FISH) testing: CEP3: Normal CEP7: Normal CEP17: Normal LSI 9p21: Normal Interpretation: Normal profile Controls stained appropriately. Note: The results are intended as a screening device and should be interpreted in association with other clinical and pathological findings. 11/04/2024 2:06 PM EDT [facility] Clinical Information Gross hematuria R31.0 Urine Cytology/FISH (now) 11/04/2024 2:06 PM EDT [facility] Gross Description A. Urine, Voided, [id number]: Received one ThinPrep slide for cytology and one ThinPrep slide for UroVysion FISH 11/04/2024 2:06 PM EDT [facility] Disclaimer Unless otherwise specified, all tissue is 10% NB formalin fixed and paraffin embedded. Technical pathology services provided by [facility] at [address] [place] [address] [address], [place] [address] (CLIA #[id number]/Екатерина Elliott MD, Steam Drier Operator) 11/04/2024 2:06 PM EDT [facility] Tissue Urine specimen from urethra / Unknown 10/18/2024 10/24/2024 9:17 AM EDT us Sasha [facility] LAB PATHOLOGY ORDERABLES Final Result [facility] [address] [place] [address], documented in this encounter Visit Diagnoses Diagnosis Gross hematuria documented in this encounter
--- OUTSIDE RECORDS SUMMARY | 2025-03-27 12:58 | XMS_ITS | Encounter Summary ---
Author Organization [facility] Address [address] [facility] [address] [place] [address] Phone Care Team Providers Care Systems Analyst Engineer Name Role Phone Sabas De Souza MD Primary Care Provider +1- [phone] Reason for Visit * Reason Comments Med Refill Encounter Details Date Type Department Care Team ([facility] Contact Info) Description 03/23/2025 Refill [facility] [address] [place] [address] Ambrosio Brewer MD [address] [address] Social History Tobacco Use Types [...] Upcoming Encounters Date Type Department Care Team ([facility] Contact Info) Description 10/19/2025 2:15 PM EDT Office Visit [facility] [address] [place] [address] Misael Mcneill MD [address] [address] documented as of this encounter Visit Diagnoses Not on filedocumented in this encounter Care Teams Systems Analyst Engineer Relationship Specialty Start Date End Date Sabas De Souza MD [address] [place] [address] PCP - General Internal Medicine 12/24/20 documented as of this encounter
--- OUTSIDE RECORDS SUMMARY | 2025-03-27 12:58 | XMS_ITS | Encounter Summary ---
Author Organization [facility] Address [address] [facility] [address] [place] [address] Phone Care Team Providers Care Pallet Sorter Name Role Phone Sabas De Souza MD Primary Care Provider +1- [phone] Encounter Details Date Type Department Care Team (Late Contact Info) Description 10/31/2021 Documentation Only [facility] [address] [facility] [address] [place] [address] Misael Mcneill MD [address] [address] Social History Tobacco Use [...] Department Care Team (Late Contact Info) Description 10/19/2025 2:15 PM EDT Office Visit [facility] [address] [place] [phone] Misael Mcneill MD [address] [address] documented as of this encounter Visit Diagnoses Not on filedocumented in this encounter Care Teams Pallet Sorter Relationship Specialty Start Date End Date Sabas De Souza MD [facility] [place] [address] PCP - General Internal Medicine 12/24/20 documented as of this encounter
[2025-03-27 16:35] LABS: Microalbum/Creatinine Ratio Ur 531.3 ug/mg cr (<30)
[2025-03-27 16:47] LABS: Cholesterol 131 mg/dL (<200); HDL Cholesterol 45 mg/dL (>40); Triglycerides 127 mg/dL (<150)
[2025-03-27 17:04] LABS: Free T4 (Free Thyroxine) 0.98 ng/dL (0.71-1.85); Thyroid Stimulating Hormone 5.35 uIU/mL (0.32-4.0)
== END 2025-03-27 12:55 | disposition home or self-care (01) ==
LOC: HO.HMGCLDS 12:54
PROVIDERS: PCP Internal Medicine; Visit Provider Student in an Organized Health Care Education/Training Program
DX: E04.2 Nontoxic multinodular goiter (principal); E89.0 Postprocedural hypothyroidism; E11.9 Type 2 diabetes mellitus without complications; Z79.4 Long term (current) use of insulin
CPT/HCPCS: 36415; 80061; 82043; 82570; 84439; 84443

== ENCOUNTER 2025-03-30 13:11 | Outpatient (AMB) | payer OTHER, SELFPAY ==
--- OUTSIDE RECORDS SUMMARY | 2023-11-03 09:30 | XMS_ITS ---
Author Organization [facility] Address [address] [place] [phone] Care Team Providers Care Derrick Man Name Role Phone Ap GODDARD, Bernadette Lyman Primary Care Provider Un available Terri Jacobo Unavailable [phone] Encounters Encounter Location Date Provider Diagnosis [address] [address] 11/03/2023 Terri Jacobo Plan Of Treatment Next Appt Details Provider Name:Terri ernandez, 05/02/2025 02:30:00 PM, [address] [place], [address], Progress Notes * Dannie FITZGERALDOB: (70 yo F)Acc No.[id number]:11/03/2023 Progress Note Patient: Arnol GUTHRIEba Provider: Socorro Jacobo DPM :1955 A ge:68 Y S ex:Female Date:11/03/2023 Address:[address] [place] [address] [address], [place], [place] Pcp:Jesus Hernandez Subjective: * Chief Complaints: * [...] 11/03/2023 Generated for Janessa perez/Wade/Jamee on: 1 04:35 PM EDT
--- OUTSIDE RECORDS SUMMARY | 2024-03-22 07:15 | XMS_ITS ---
Author Organization [facility] Address [address] [place] [address] Care Team Providers Care Sheet Rock Hanger Name Role Phone Ap GODDARD, Bernadette Lyman Primary Care Provider Un available Terri Jacobo Unavailable [phone] Encounters Encounter Location Date Provider Diagnosis [address] [address] 03/22/2024 Terri Jacobo Plan Of Treatment Next Appt Details Provider Name:Terri ernandez, 05/02/2025 02:30:00 PM, [address] [place], [address], Progress Notes * Dannie FITZGERALDOB: (70 yo F)Acc No.[id number]:03/22/2024 Progress Note Patient: Arnol GUTHRIEba Provider: Socorro Jacobo DPM :1955 A ge:69 Y S ex:Female Date:03/22/2024 Address:[address] [place] [address] [address], [place], [place] Pcp:Jesus Hernandez Subjective: * Chief Complaints: * [...] Date: 1 Generated for Janessa perez/Wade/Jamee on: 04:34 PM EDT
--- OUTSIDE RECORDS SUMMARY | 2024-05-10 11:15 | XMS_ITS ---
Author Organization [facility] Address [address] [place] [address] Care Team Providers Care Oil Well Engineer Name Role Phone Ap GODDARD, Bernadette Lyman Primary Care Provider Un available Terri Jacobo Unavailable [phone] Encounters Encounter Location Date Provider Diagnosis [address] [address] 05/10/2024 Terri Jacobo Plan Of Treatment Next Appt Details Provider Name:Terri ernandez, 05/02/2025 02:30:00 PM, [address] [place], [address], Progress Notes * Dannie FITZGERALDOB: (70 yo F)Acc No.[id number]:05/10/2024 Progress Note Patient: Arnol GUTHRIEba Provider: Socorro Jacobo DPM :1955 A ge:69 Y S ex:Female Date:05/10/2024 Address:[address] [place] [address] [address], [place] Pcp:Jesus Hernandez Subjective: * Chief Complaints: * [...] Date: 07/10/2023 Generated for Janessa perez/Wade/Jamee on: 04:34 PM EDT
--- OUTSIDE RECORDS SUMMARY | 2024-07-05 12:00 | XMS_ITS ---
Author Organization [facility] Address [address] [facility] [place] [address] Care Team Providers Care Photogrammetric Technician Name Role Phone Ap GODDARD, Bernadette Lyman Primary Care Provider Un available Terri Jacobo Unavailable [phone] Medications Medication SIG (Take, Route, Frequency, Duration) [...] a day; Duration: 30 day(s) Active pyRIDostigmine [place] ER 180 MG 1 tablet Orally Once a day; Duration: 30 day(s) Active Cholecalciferol 25 MCG (1000 UT) 1 capsule Orally Once a day; Duration: 30 day(s) Active oxyBUTYnin Chloride 5 MG 1 tablet Orally Twice a day; Duration: 30 day(s) Active Potassium Active Encounters Encounter Location Date Provider Diagnosis [facility] [address] [address] 07/05/2024 Terri Jacobo Plan Of Treatment Next Appt Details Provider Name:Terri ernandez, 05/02/2025 02:30:00 PM, [address] [place] [address], [address], Progress Notes * Dannie FITZGERALDOB: 6 (70 yo F)Acc No.[id number]:07/05/2024 Progress Note Patient: Arnol GUTHRIEba Provider: Socorro Jacobo DPM :1955 A ge:69 Y S ex:Female Date:07/05/2024 Address:[address] [place], [place] [address] Pcp:Jesus Hernandez Subjective: * Chief Complaints: * [...] Orally Once a day , Taking pyRIDostigmine [place] ER 180 MG Tablet Extended Release 1 [...] 0 07/05/2024 Generated for Janessa perez/Wade/Jamee on: 1 04:34 PM EDT History and Physical Notes * HPI (History of Present Illness) Category Sub-Category Detail Notes Category Not es At Risk footcare Pt States Last PCP Visit: Date: 4
--- OUTSIDE RECORDS SUMMARY | 2024-10-28 08:45 | XMS_ITS ---
Author Organization [facility] Address [address] [place] [address] Care Team Providers Care Chief Design Engineer Name Role Phone Ap GODDARD, Bernadette Lyman Primary Care Provider Un available Terri Jacobo Unavailable [phone] Rain Encounters Encounter Location Date Provider Diagnosis [address] [address] 10/28/2024 Terri Jacobo Plan Of Treatment Next Appt Details Provider Name:Terri ernandez, 05/02/2025 02:30:00 PM, [address] [place] [address], [phone], Progress Notes * Dannie FITZGERALDOB: 6 (70 yo F)Acc No.[id number]:10/28/2024 Progress Note Patient: Shaila MORGANVIRY Magy Provider: Socorro Jacobo DPM :1955 A ge:69 Y S ex:Female Date:10/28/2024 Address:[address] [place] [address] [address], [place] Pcp:Jesus Hernanedz Subjective: * Chief Complaints: * 1 . [...] 10/28/2024 Generated for Janessa perez/Wade/Jamee on: 1 04:34 PM EDT
--- NOTE | 2025-03-30 13:29 | A.OFFPC_ITS ---
Vital Signs 03/30/25 13:36 Height 5 ft 1 in Weight 149 lb BMI 28.2 BP 186/100 H Blood Pressure Location Lt brachial Position Sitting Respiration 16 Pulse 93 Pulse Source Pulse Oximeter Temp 98.6 F Temp Source Oral Pulse Oximetry (%) 98 Oxygen Delivery Method Room Air Intake Visit Reasons: 6m follow up Intake Note: Pt is here today for her 6mo. f/u and preoperative exam Welding Process Engineer Required: No Allergies Penicillins (PCN) Allergy (Unknown, Verified 03/30/25 14:00) RASH pregabalin (From Lyrica) Adverse Reaction (Severe, Verified 03/30/25 14:00) skin peeling gabapentin Adverse Reaction (Unknown, Verified 03/30/25 14:00) Dizziness Medication List - Last Reconciled 03/30/25 by Bernadette De Souza MD amlodipine 5 mg PO BID apixaban 5 mg PO DAILY aspirin 81 mg PO DAILY [bed rail As directed NS] blood pressure test kit-medium As directed to monitor blood pressure blood sugar diagnostic (FreeStyle Lite Strips) qid blood-glucose meter (FreeStyle Lite Meter kit) As directed blood-glucose meter (FreeStyle Lite Meter kit) As directed blood-glucose sensor (FreeStyle Oren 3 Plus Sensor device) As directed use in place of freestyle 3 due to shortage of FS3 blood-glucose,ore miner blasting,cont (FreeStyle Oren 3 [place]) As directed chlorthalidone 25 mg PO DAILY cholestyramine (Cholestyramine Light) 4 grams PO DAILY famotidine (Pepcid) 20 mg PO BID ferrous sulfate 325 mg PO DAILY folic acid 1 mg PO DAILY incontinence pad, liner, disp As directed-use up to 4 per day insulin glargine (Lantus Solostar U-100 Insulin) 16 units subcut BEDTIME lancets (FreeStyle Lancets) 4x daily levothyroxine 125 mcg PO DAILY gavrnb-vmsssdec-rtmwwmk (pork) 36,000-114,000- 180,000 unit (Creon) 2 caps PO BID lisinopril 5 mg PO DAILY metformin 1,000 mg PO BID 30 days metoprolol succinate ER 25 mg (1/2 x 50 mg) PO DAILY mycophenolate mofetil 1,000 mg (2 x 500 mg) PO TID@0800,1300,1900 nut.tx.gluc.intol,lac-free,soy (Glucerna oral liquid) 1 ea PO TID oxybutynin chloride ER 10 mg PO DAILY 2 weeks pen needle, diabetic once daily potassium citrate ER 10 mEq PO BID pyridostigmine bromide 180 mg (3 x 60 mg) PO TID rosuvastatin 40 mg PO DAILY [shower bench without back As directed] Tobacco use date assessed: 03/30/25 Fall risk assessment: No Falls in past year Last assessed Fall Risk: 03/30/25 Dental Screening Dental Screen Date: 03/30/25 Did you have a dental visit in the last 12 months?: Yes Did you have a dental problem in the last 6 months where you did not have access to dental care?: No Was dental information given to patient?: Patient has dentist HPI 6m follow up HPI Details 70-year-old female with complex past med ical issues which include including hypertension, hyperlipidemia, myasthenia gravis, history of CVA. October 2020, and history of peripheral vascular disease with previous right fem pop bypass, here today for preoperative exam for cystoscopy with retrograde pyelograms scheduled for 04/14/2025. She is on aspirin and apixaban currently. As per patient, she has been advised to hold apixaban 2 days prior to scheduled procedure. Blood pressure is significantly elevated. She has already been seen by It[facility] green weeks ago increased her amlodipine to 5 mg twice a day. Patient however has only been taking it once a day together with her chlorthalidone 25 mg daily , metoprolol succinate ER 25 mg daily and lisinopril 5 mg once a day. Her cholesterol is significantly elevated , with an LDL cholesterol of 179 mg per dL. Her target is less than 70, ideally less than 55. Started on rosuvastatin 40 mg daily. Her myasthenia gravis , for the most part is stable with present treatment of pyridostigmine and mycophenolate mofetil. Currently being followed by Neurology clinic. Denies change in her vision, speech, swallowing or breathing. Last hemoglobin A1c on 03/16/2025 was 7.6%, currently on metformin a 1000 mg 1 tablet twice a day together with Lantus 16 units at bedtime. She has not been using her Typekit Oren, will refer to nurse navigator for diabetic teaching. Denies chest pain, abnormal bleeding, no shortness of breath or lightheadedness reported. Continues to smoke cigarettes, trying to quit. [facility] Medical History Personal history of nicotine dependence Spasm of bladder Ureteral stone with hydronephrosis Hyperparathyroidism Tinnitus Hearing loss Anxiety and depression Diabetes mellitus, with long-term current use of insulin Urinary, incontinence, stress female Wheezing Vitamin B12 deficiency Occlusion of stent of peripheral artery Chronic low back pain History of CVA (cerebrovascular accident) (~10/2020) History of kidney stones Tubular adenoma of colon COVID-19 vaccine series declined Colitis without complication Myasthenia gravis Pernicious anemia Myasthenia gravis Urge urinary incontinence Microalbuminuria Vitamin D deficiency Hypothyroidism Multinodular thyroid HTN (hypertension) Surgical History History of cholecystectomy History of surgery History of amputation of toe Hx of blood clots Status post biopsy of thyroid gland (~2021) History of colonoscopy History of esophagogastroduodenoscopy (EGD) History of bilateral cataract extraction (~2019) History of parathyroidectomy History of lithotripsy (~2013) History of hernia repair History of hysterectomy (~1984) Family History Father Lung cancer Mother Asthma Diabetes HTN (hypertension) Heart attack Sister FH: mental illness Leukemia Mental health disorder Social History (Updated 04/06/25 @ 13:46 by Oriana Wade RN) Household Members: None Both parents involved: No Caregiver staying overnight: No Housing: Apartment Are you a primary rn transitional care to a significant other at home: No Do you presently have visiting nurse or other home services: Yes (MATERIAL ASSEMBLER 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 How often do you have a drink containing alcohol?: Never Total Score: 0 APARNA-7 AMB Questionnaire APARNA-7 Date APARNA - 7 assessed: 10/16/23 Source: Developed by Drs. Cristi De Luna, Bertha Robbins, Gallo Leiva and colleagues, with an educational jud from [employer]. Review of Systems Const Denies fever(s), Denies frequent falls, Denies headache(s), Denies lethargy, Denies stops breathing during sleep and Denies weakness Eyes Denies change in vision ENT Denies change in voice, Denies dysphagia, Denies dizziness, Denies headache(s) and Denies disequilibrium Card Denies chest pain, Denies leg edema, Denies lightheadedness, Denies palpitations, Denies dyspnea and Denies dyspnea on exertion Resp Denies cough, Denies dyspnea and Denies dyspnea on exertion GI Denies hematochezia and Denies dysphagia Reports no additional complaints Musc Denies muscle weakness, Denies radiating pain into limb and Reports tingling (Lower extremity extremity) Skin/Breast Denies breast pain, Denies breast mass and Denies rash Neuro Denies Abnormal speech present, Denies dizziness, Denies frequent falls, Denies headache(s), Denies focal weakness, Reports tingling (Lower extremity extremity), Denies disequilibrium and Denies weakness Psych Reports no additional complaints Endo Denies palpitations Jesus/Lymph Reports no additional complaints Aller/Immun Reports no additional complaints Physical exam (Primary Care) Vital Signs: Last Vital Signs Temp 98.6 F 03/30/25 13:36 Pulse 93 03/30/25 13:36 Resp 16 03/30/25 13:36 BP 186/100 H 03/30/25 13:36 Pulse Ox 98 03/30/25 13:36 Oxygen Delivery Method Room Air 03/30/25 13:36 BMI result Body Mass Index 28.2 Tobacco/Smoking Status: Tobacco use Status Tobacco use date assessed 03/30/25 03/30/25 13:44 Patient Tobacco Use Status Former Tobacco user 03/30/25 13:31 Tobacco use type Cigarette 03/30/25 13:31 e-Cigarette/Vaping Use Never Used 03/30/25 13:31 Are you ready to quit: No Thrive Assessment: Date of Thrive Assessment Date Thrive assessed 09/21/24 03/30/25 13:31 Const General: no acute distress and alert Orientation/consciousness: patient oriented x3 HENMT Face and sinus: Yes face symmetric Mouth: Normal oral and palatal mucosa present and moist mucous membranes Eyes General: appearance normal, both eyes and all related structures Neck Neck: Yes full ROM, Yes no lymphadenopathy and Yes supple Resp Effort & Inspection: normal respiratory effort and able to speak in complete sentences Cardio Other: S1-S2 present regular rate and rhythm GI Palpation (GI): Soft to palpation, nontender and no guarding Auscultation: normal bowel sounds General: Yes no CVA tenderness Back/Spine/Pelvis Back: no CVA tenderness and No back tenderness Skin General skin exam: no rashes or lesions noted Neuro General: patient oriented x3, moves all extremities, no focal motor deficits, CN's II-XI intact bilaterally and decrease sensation to monofilament (In both lower extremities) Speech: No Abnormal speech present Extrem Other: No pedal edema noted, no gross bone deformity seen, Absent 5th digits in both feet Psych Appearance: grossly normal and well kempt Mental Status: mental status grossly normal Speech and movement: Normal speech and movement present Affect: normal affect Results Reviewed Results Reviewed: Name: Magy Fitzgerald I Age/Sex: 70/F : 1955 Unit#: [id number] Attend Dr: Massiel New MD Re03/16/25 Status: REG [facility] Location: HO.ONC Disch: SPEC : [id number] CECI: 03/16/25 STATUS: COMP REQ : [id number] RECD: 03/16/[address]: Massiel New MD COMP: 03/16/25 ENTERED: 03/16/[address]: Bernadette De Souza MD ORDERED: CBC Auto Diff Test Result Flag Reference WBC 8.1 4.8-10.8 X10*3/uL RBC 5.46 4.20-5.50 X10*6/uL HGB 13.0 12.0-16.0 g/dl HCT 40.9 37.0-47.0 % MCV 74.9 L 80.0-98.0 fL MCH 23.8 L 27.0-33.0 pg MCHC 31.8 31.0-35.0 g/dl RDW 19.9 H 11.0-16.0 % PLT 290 # 160-400 X10*3/uL MPV 9.7 9.4-12.3 fL Neut Pct Auto 64.8 45-73 % ImGran Pct Auto 0.2 0.0-0.4 % Lymp Pct Auto 24.9 20-40 % [place] Pct Auto 8.1 2-11 % Eos Pct Auto 1.4 0-4 % Baso Pct Auto 0.6 0-2 % NRBC Pct Auto 0.0 0.0-0.2 /100WBC ANC Neut Abs # 5.2 2.0-8.3 x10*3/uL ImGran Abs Auto 0.02 0.00-0.03 X10*3/uL Lymph Abs Auto 2.0 1.2-4.9 X10*3/uL [place] Abs Auto 0.7 0.1-1.2 X10*3/uL Eos Abs Auto 0.1 0.0-0.4 X10*3/uL Baso Abs Auto 0.1 0.0-0.2 X10*3/uL NRBC Abs Auto 0.000 0.0-0.012 X10*3/uL alton: Magy Fitzgerald I Age/Sex: 70/F : 1955 Unit#: [id number] Attend Dr: Kalin Sanford MD Re03/27/25 Status: DEP REF Location: [facility] Disch: SPEC : [id number] CECI: 03/27/25 STATUS: COMP REQ : [id number] RECD: 03/27/[address]: Kalin Sanford MD COMP: 03/27/25-1703 ENTERED: 03/27/25-1258 [facility] DR: Bernadette De Souza MD ORDERED: Lipid Panel, Free T4, TSH Test Result Flag Reference Triglyceride 127 <150 mg/dL Desirable Triglyceride: less than 150 mg/dL Borderline High Triglyceride 150-199 mg/dL High Triglyceride: 200-499 mg/dL Very High Triglyceride: greater than or equal to 5OO mg/dL Cholesterol 131 <200 mg/dL Desirable Cholesterol: less than 200 mg/dL Borderline High Cholesterol: 200-239 mg/dL High Cholesterol: greater than 239 mg/dL LDL Calculated 61 <100 mg/dL Desirable LDL: less than 100 mg/dL Near Optimal/Above Optimal LDL: 110-129 mg/dL Borderline High LDL: 130-159 mg/dL High LDL: 160-189 mg/dL Very High LDL: greater than or equal to 190 mg/dL HDL 45 >40 mg/dL Desirable HDL: greater than 40 mg/dL Note: This HDL assay may give artificially low results in patients with liver disease. Free T4 0.98 0.71-1.85 ng/dL TSH 3rd Gen. 5.35 H 0.32-4.0 uIU/mL Note: A sustained TSH level above 2.5 uIU/mL may warrant further investigation. TSH 3rd Generation ([facility]) Laboratory Tests 03/16/25 03/17/25 03/27/25 11:27 13:13 13:05 Hgb A1c (Clinic) 7.6 H Calcium 10.0 Total Bilirubin 0.2 AST 23 ALT 18 Alkaline Phosphatase 80 Total Protein 7.7 Albumin 4.6 Urine Creatinine 56.27 Urine Microalbumin 299.0 Microalb/Creat Ratio 531.3 H Coding Level of Care Code Est Pt Level 4 (38958) Complex EM visit Add On G2211 Diagnoses Preoperative examination Z01.818 Hypertension, unspecified type I10 Hypertension type: unspecified PAD (peripheral artery disease) I73.9 Mixed hyperlipidemia E78.2 Hyperlipidemia type: mixed hyperlipidemia Type 2 diabetes mellitus with stage 2 chronic kidney disease, with long-term current use of insulin E11.22; N18.2; Z79.4 Diabetes mellitus type: type 2 Diabetes mellitus complication status: with kidney complications Diabetes mellitus complication detail: with chronic kidney disease Chronic kidney disease stage: stage 2 (mild) 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 Myasthenia gravis G70.00 Anxiety and depression F41.9; F32.A Assessment & Plan Assessment & Plan (1) Preoperative examination: Code(s): Z01.818 - Encounter for other preprocedural examination (2) HTN (hypertension): Code(s): I10 - Essential (primary) hypertension Category: Medical Qualifiers: Hypertension type: unspecified Qualified Code(s): I10 - Essential (primary) hypertension (3) PAD (peripheral artery disease): Code(s): I73.9 - Peripheral vascular disease, unspecified Category: Medical (4) HLD (hyperlipidemia): Code(s): E78.5 - Hyperlipidemia, unspecified Category: Medical Qualifiers: Hyperlipidemia type: mixed hyperlipidemia Qualified Code(s): E78.2 - Mixed hyperlipidemia (5) Diabetes mellitus, with long-term current use of insulin: Code(s): E11.9 - Type 2 diabetes mellitus without complications; Z79.4 - terminal makeup operator (current) use of insulin Category: Medical Qualifiers: Diabetes mellitus type: type 2 Diabetes mellitus complication status: with kidney complications Diabetes mellitus complication detail: with chronic kidney disease Chronic kidney disease stage: stage 2 (mild) Qualified Code(s): E11.22 - Type 2 diabetes mellitus with diabetic chronic kidney disease; N18.2 - Chronic kidney disease, stage 2 (mild); Z79.4 - MCC (current) use of ins ulin (6) Hypothyroidism: Code(s): E03.9 - Hypothyroidism, unspecified Category: Medical Qualifiers: Hypothyroidism type: postablative Qualified Code(s): E89.0 - Postprocedural hypothyroidism (7) Myasthenia gravis: Code(s): G70.00 - Myasthenia gravis without (acute) exacerbation Category: Medical (8) Anxiety and depression: Code(s): F41.9 - Anxiety disorder, unspecified; F32.A - Depression, unspecified Category: Medical Plan 70-year-old female with complex past medical issues which include including hypertension, hyperlipidemia, myasthenia gravis, history of CVA. October 2020, and history of peripheral vascular disease with previous right fem pop bypass, here today for preoperative exam for cystoscopy with retrograde pyelograms scheduled for 04/14/2025. Currently controlled hemoglobin A1c at 7.6%, higher than last check. Her myasthenia gravis stable medications. Currently on rosuvastatin 40 mg daily to for treatment of dyslipidemia. Pt for nipples are taking on current dose levothyroxine. Her Blood pressure is poorly controlled, reminded to increase her amlodipine dose to 5 mg 1 tablet twice a day, as advised by director of purchasing, continue [place] down, lisinopril, metoprolol at the same dose. Will have her come back later this week to check blood pressure, prior to get granting clearance. She denies having headache, no chest pain shortness of breath, no palpitations , weakness or nausea reported. EKG done on 03/13/2025 at director of purchasing office showed normal sinus rhythm with no acute ST-T changes seen. She has been advised to stop apixaban 2 days prior to procedure and has been at least 5 days prior to procedure.
[2025-03-30 13:36] VITALS: BP 186/100; PULSE 93; RESP 16; TEMP 37; O2SAT 98; BMI 28.2
--- OUTSIDE RECORDS SUMMARY | 2025-03-30 16:34 | XMS_ITS | Patient Health Record ---
[facility] Address [address] [place] [address] Care Team Providers Care Product Safety And Standards Engineer Name Role Phone Ap GODDARD, Bernadette Lyman Primary Care Provider Un available Jr Jacoboen Unavailable [phone] Allergies Allergen (clinical drug ingredient) Drug/Non Drug [...] a day; Duration: 30 day(s) Not-Taking pyRIDostigmine Glady ER 180 MG 1 tablet Orally Once [...] Polyneuropathy due to type 2 diabetes mellitus (744395630) Type 2 diabetes mellitus with polyneuropathy (E11.42) Active confirmed Problem Bilateral atherosclerosis of arteries of lower limbs (disorder) ([id number] ) Atherosclerosis of artery of both lower extremities (I70.203) Active confirmed Vital Signs Blood pressure diastolic 80 mm Hg 12/28/2024 Height 5ft 1in in 12/28/2024 Blood pressure systolic 130 mm Hg 12/28/2024 Weight 140 lbs 12/28/2024 BMI 26.45 kg/m2 12/28/2024 Encounters Encounter Location Date Provider Diagnosis [address] [address] 12/28/2024 Terri Jacobo Atherosclerosis of artery of both lower extremities I70.203 ; Other hammer toe(s) (acquired), left foot M20.42 ; Type 2 diabetes mellitus with polyneuropathy E11.42 and Other hammer toe(s) (acquired), right foot M20.[address] [address] 04/25/2024 Terri Jacobo [address] [address] 07/05/2024 Terri Jacobo [address] [address] 12/28/2024 Terri Jacobo Assessments Encounter Date Diagnosis [...] Plan Of Treatment Next Appt Details Provider Name:Terrisukhwinder ernandez, 05/02/2025 02:30:00 PM, [address] [place] [address], [phone], Insurance Providers Payer Name Payer Address Payer Phone Subscriber Number Group Number Insured Name Patient Relationship to Insured Coverage Start Date Coverage End Date [facility] [employer] Claims [address] [place] [address] [id number] Magy Trejo Self - patient is the [...]
--- OUTSIDE RECORDS SUMMARY | 2025-03-30 16:34 | XMS_ITS | Clinical Summary ---
Author Organization [facility] Address [address] [place] [address] [place] [address] Phone Care Team Providers Care Cdl A Driver Name Role Phone Sabas De Souza MD Primary Care Provider [phone] Allergies Active Allergy Reactions Criticality Noted Date [...] 03/23/2025 Refill [facility] [address] [place] [address] Ambrosio Brewer MD from Last 3 Months [...] Visit [facility] [address] [place] [address] Misael Mcneill MD [address] [facility] [address] [place] [address] Health Maintenance Due Date Last [...] Most Recently Relevant to Health Maintenance [place] [address] [place] [address] ([id number]) [facility] ([id number]) Care Teams Cdl A Driver Relationship Specialty Start Date End Date Sabas De Souza MD [address] [place] [address] [place] [address] PCP - General Internal Medicine 12/24/20
--- OUTSIDE RECORDS SUMMARY | 2025-03-30 16:34 | XMS_ITS | Clinical Summary ---
Author Organization [facility] Address [address] [place] [address] Phone Care Team Providers Care Hvac R Tech Name Role Phone Unknown, Unknown Primary Care [...] file Medical Devices Not on file Insurance [facility] MEDICARE REPLACEMENT [facility] MEDICARE REPLACEMENT Care Teams Hvac R Tech Relationship Specialty Start Date End Date Unknown, Unknown, PCP - General 06/12/23 Additional Source Comments The information contained in this document represents components of the legal health record. It is not the complete legal health record.[facility]
--- OUTSIDE RECORDS SUMMARY | 2025-03-30 16:34 | XMS_ITS | Data Portability ---
Author Organization [facility] Address [address] [place] [address] Care Team Providers Care Paedodontist Name Role Phone [facility] Referring Provider [phone] Assessment Encounter Date Assessment Date Assessment LastModified by Organization Details LastModified Time 01/13/2022 01/13/2022 I have reviewed and agree with the assessment and plan as documented by the insurance case manager. I provided real-time medical direction for this [...] Diagnosis SNOMED-CT Code Diagnosis ICD10 Code Diagnosis IMO Codes Diagnosis Note 3085 Itzel Mott MD [facility] [address] [place] [phone] 01/13/2022 20:36:58 02/19/2022 12:51:59 Chronic deep venous thrombosis of lower extremity [id number] I82.509 Health Concerns Section Related Observation LastModified by Organization Detai ls LastModified Time None Recorded Concern Status LastModified by Organization Details LastModified Time None Recorded Advance Directives Directive None Recorded Payers Insurance Date Sequence Insurance Name Policy Number Policy Nicolas Covered Member ID Nicolas Member ID Guarantor Name 08/17/[address] [facility] [employer] - DOS PRIOR TO 2022 - DUAL ELIGIBLE (MEDICARE REPLACEMENT/AD VANTAGE - HMO) Magy Fitzgerald [id number] Magy Fitzgerald 08/17/[address] [facility] [employer] - DOS ON OR AFTER 2022 - DUAL ELIGIBLE - LONGTERM OPTIONS AND ONE CARE (MEDICARE REPLACEMENT/AD VANTAGE - HMO) Magy Fitzgerald [id number] Magy Fitzgerald Notes Date Note Type Note Provider Name and Address Organization Details Recorded Time 01/13/2022 text/html [facility] Nursing Assessment: Chief Complaints: Pain PMH: Diabetes Allergies: Unknown Comments: VALVE INSPECTOR concern for eval L foot pain and 5th toe discoloration increased pain this week decline ED at this time deny fevers await surgery poor historian Itzel Mott MD [address] [facility], [place], [address], [employer] 01/13/2022 20:48:35 OBGyn Episode No OBEpisode recorded.
--- OUTSIDE RECORDS SUMMARY | 2025-03-30 16:35 | XMS_ITS | Encounter Summary ---
Author Organization [facility] Address [address] [place] [address] Care Team Providers Care Hardwood Sawyer Name Role Phone Unavailable Primary Care Provider Unavailabl e Encounter Details Date Type Department Care Team (Late st Contact Info) Description 10/24/2024 Lab Requisition [facility] - Main Lab [address] [facility] [place] [address] Sasha Storm PA [address] [place] [address] Gross hematuria Social History Tobacco Use Types [...] AM EDT) Final Diagnosis A. Urine, Voided, [id number]: Negative for high grade urothelial carcinoma. Results of UroVysion fluorescence in situ hybridization (FISH) testing: CEP3: Normal CEP7: Normal CEP17: Normal LSI 9p21: Normal Interpretation: Normal profile Controls stained appropriately. Note: The results are intended as a screening device and should be interpreted in association with other clinical and pathological findings. 11/04/2024 2:06 PM EDT [facility] Clinical Information Gross hematuria R31.0 Urine Cytology/FISH (now) 11/04/2024 2:06 PM EDT [facility] Gross Description A. Urine, Voided, [id number]: Received one ThinPrep slide for cytology and one ThinPrep slide for UroVysion FISH 11/04/2024 2:06 PM EDT [facility] Disclaimer Unless otherwise specified, all tissue is 10% NB formalin fixed and paraffin embedded. Technical pathology services provided by [facility] at [address] [place] [address] [address], [place] [address] (CLIA #[id number]/Екатерина Elliott MD, Flame Degreaser) 11/04/2024 2:06 PM EDT [facility] Tissue Urine specimen from urethra / Unknown 10/18/2024 10/24/2024 9:17 AM EDT us Sasha [facility] LAB PATHOLOGY ORDERABLES Final Result [facility] [address] [place] [address], documented in this encounter Visit Diagnoses Diagnosis Gross hematuria documented in this encounter
--- OUTSIDE RECORDS SUMMARY | 2025-03-30 16:35 | XMS_ITS | Encounter Summary ---
Author Organization [facility] Address [address] [facility] [address] [place] [address] Phone Care Team Providers Care Nurse Discharge Planner Name Role Phone Sabas De Souza MD Primary Care Provider +1- [phone] Encounter Details Date Type Department Care Team (Late Contact Info) Description 10/28/2021 Telephone [facility] [address] [facility] [address] [place] [address] Misael Mcneill MD [address] [facility] [address] [place] [phone] Social History Tobacco Use Types Packs/Day Years [...] speak with you. She was at the [facility] ER and was told she has kidney stones. She would like to speak with you about this. Please call her back at [phone] Thank you documented in this encounter Plan of Treatment Upcoming Encounters Date Type Department Care Team (Late st Contact Info) Description 10/19/2025 2:15 PM EDT Office Visit [facility] [address] [place] [phone] Misael Mcneill MD [address] [facility] [address] [place] [phone] documented as of this encounter Visit Diagnoses Not on filedocumented in this encounter Care Teams Nurse Discharge Planner Relationship Specialty Start Date End Date Sabas De Souza MD [facility] [place] [address] PCP - General Internal Medicine 12/24/20 documented as of this encounter
--- OUTSIDE RECORDS SUMMARY | 2025-03-30 16:35 | XMS_ITS | Encounter Summary ---
Author Organization [facility] Address [address] [facility] [address] [place] [address] Phone Care Team Providers Care Receptionist/Telephone Operator Name Role Phone Sabas De Souza MD Primary Care Provider +1- [phone] Encounter Details Date Type Department Care Team (Late Contact Info) Description 10/31/2021 Documentation Only [facility] [address] [facility] [address] [place] [address] Misael Mcneill MD [address] [address] Social History Tobacco Use Types [...] [facility] [address] [place] [phone] Misael Mcneill MD [address] [address] documented as of this encounter Visit Diagnoses Not on filedocumented in this encounter Care Teams Receptionist/Telephone Operator Relationship Specialty Start Date End Date Sabas De Souza MD [facility] [place] [address] PCP - General Internal Medicine 12/24/20 documented as of this encounter
--- OUTSIDE RECORDS SUMMARY | 2025-03-30 16:35 | XMS_ITS | Encounter Summary ---
Author Organization [facility] Address [address] [facility] [address] [place] [address] Phone Care Team Providers Care Fringe Knotter Name Role Phone Sabas De Souza MD Primary Care Provider +1- [phone] Encounter Details Date Type Department Care Team ([facility] Contact Info) Description 12/03/2020 Orders Only [facility] [address] [place] [address] Misael Mcneill MD [address] [facility] [address] [place] [phone] Persistent proteinuria; Type 2 diabetes mellitus with [...] Upcoming Encounters Date Type Department Care Team ([facility] Contact Info) Description 10/19/2025 2:15 PM EDT [facility] Visit [facility] [address] [place] [phone] Misael Mcneill MD [address] [facility] [address] [place] [address] documented as of this encounter Visit Diagnoses Diagnosis Persistent proteinuria Type 2 diabetes mellitus with diabetic chronic kidney disease (HCC) Hypertensive disorder documented in this encounter Care Teams Fringe Knotter Relationship Specialty Start Date End Date Sabas De Souza MD [facility] [place] [address] PCP - General Internal Medicine 12/24/20 documented as of this encounter
--- OUTSIDE RECORDS SUMMARY | 2025-03-30 16:35 | XMS_ITS | Clinical Summary ---
Author Organization [address] Address [address] [place] [address] Phone Care Team Providers Care It Quality Assurance Analyst Name Role Phone Unavailable Primary Care Provider [...] RSV Immunization Adult Patients (1 - Risk 50-74 years 1-dose series) 2006 Breast Cancer Screening 06/19/2017 06/19/2015 COVID-19 Vaccine [...] complete this topic Insurance MEDICA[place] - [place] [facility] Member Subscriber Plan / Payer (Ef fective 2021-Present) Name:Magy Fitzgerald i Relation to Subscriber:Self Name:Amilcar Magy I Payer ID:[id number] Group ID:[id number] Type:Not on file Address: [address] [id number]
== END 2025-03-30 14:37 | disposition home or self-care (01) ==
LOC: HO.HMCC 13:11
PROVIDERS: PCP Internal Medicine; Visit Provider Internal Medicine
DX: I12.9 Hypertensive chronic kidney disease with stage 1 through stage 4 chronic kidney disease, or unspecified chronic kidney disease (principal); E11.22 Type 2 diabetes mellitus with diabetic chronic kidney disease; N18.2 Chronic kidney disease, stage 2 (mild); Z79.4 Long term (current) use of insulin; Z01.818 Encounter for other preprocedural examination; I73.9 Peripheral vascular disease, unspecified; G70.00 Myasthenia gravis without (acute) exacerbation; E78.2 Mixed hyperlipidemia; E89.0 Postprocedural hypothyroidism; F41.9 Anxiety disorder, unspecified; F32.A Depression, unspecified

== ENCOUNTER → 2025-03-30 13:11 | Outpatient (BNVA) | payer OTHER, SELFPAY | PROVIDERS: PCP Internal Medicine; Visit Provider Internal Medicine | DX: Z01.818 Encounter for other preprocedural examination (principal); E78.2 Mixed hyperlipidemia; I12.9 Hypertensive chronic kidney disease with stage 1 through stage 4 chronic kidney disease, or unspecified chronic kidney disease; E11.51 Type 2 diabetes mellitus with diabetic peripheral angiopathy without gangrene; E11.22 Type 2 diabetes mellitus with diabetic chronic kidney disease; N18.2 Chronic kidney disease, stage 2 (mild); G47.00 Insomnia, unspecified; F41.9 Anxiety disorder, unspecified; F32.A Depression, unspecified; Z79.4 Long term (current) use of insulin; Z86.73 Personal history of transient ischemic attack (TIA), and cerebral infarction without residual deficits | CPT/HCPCS: 99212 ==

== ENCOUNTER → 2025-04-03 11:15 | Outpatient (BNVA) | payer OTHER, SELFPAY | PROVIDERS: PCP Internal Medicine; Visit Provider Psychiatry & Neurology Neurology | DX: G70.00 Myasthenia gravis without (acute) exacerbation (principal) | CPT/HCPCS: 99212 ==

== ENCOUNTER → 2025-04-03 11:15 | Outpatient (AMB) | payer OTHER, SELFPAY ==
--- NOTE | 2025-04-03 11:40 | MHC.OFFVIS ---
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 She was diabetic and could not take prednisone. She has been taking large dose of mycopheylate and pyridostigmine without full control of symptoms. Previously she was treated wtih plasmapharesis and she was allergic to IVIG. She was given the option of taking a biological drug but she was afraid to take another toxic drug and preferred to stay with present drugs and PRN plasmapharesis. She said that dose of pyridostigmine was lasting 2-3 hours and then she was getting weak again. There was no significant change in her vision, speech, swallowing or breathing. At the same time she was concerned that her condition was getting worse and wanted to have some treatment. [facility] Medical History Personal history of nicotine dependence Spasm of bladder Ureteral stone with hydronephrosis Hyperparathyroidism Tinnitus Hearing loss Anxiety and depression Diabetes mellitus, with long-term current use of insulin Urinary, incontinence, stress female Wheezing Vitamin B12 deficiency Occlusion of stent of peripheral artery Chronic low back pain History of CVA (cerebrovascular accident) (~10/2020) History of kidney stones Tubular adenoma of colon COVID-19 vaccine series declined Colitis without complication Myasthenia gravis Pernicious anemia Myasthenia gravis Urge urinary incontinence Microalbuminuria Vitamin D deficiency Hypothyroidism Multinodular thyroid HTN (hypertension) Surgical History History of cholecystectomy History of surgery History of amputation of toe Hx of blood clots Status post biopsy of thyroid gland (~2021) History of colonoscopy History of esophagogastroduodenoscopy (EGD) History of bilateral cataract extraction (~2019) History of parathyroidectomy History of lithotripsy (~2013) History of hernia repair History of hysterectomy (~1984) Family History Father Lung cancer Mother Asthma Diabetes HTN (hypertension) Heart attack Sister FH: mental illness Leukemia Mental health disorder Social History Household Members: None Housing: Apartment Alcohol intake: current Alcohol intake frequency: does not drink Patient Tobacco Use Status: Former Tobacco user Tobacco use type: Cigarette Years Smoked: 45 +/- e-Cigarette/Vaping Use: Never Used Advance Directives Date on File: 03/03/22 service: No Current occupational status: disabled Cognitive needs: No Hearing needs: No Vision needs: No Review of Systems Narrative Constitutional:?No fever, chills, fatigue, weight loss, or night sweats. HEENT:?No headache, vision changes, hearing loss, nasal congestion, sore throat. Neurological:?No dizziness, syncope, seizures, numbness, tingling, weakness, tremors, memory loss. Psychiatric:?No anxiety, depression, mood swings, sleep disturbance, or hallucinations. Endocrine:?No heat/cold intolerance, polydipsia, polyuria, or hair/skin changes. Hematologic/Lymphatic:?No easy bruising, bleeding, or lymphadenopathy. Integumentary (Skin):?No rash, lesions, itching, or color changes. ? Physical Exam Neuro Other: Mental Status: Alert and oriented to person, place, and time. Normal attention. Normal spontaneous speech, fluency, and comprehension. No obvious issues with mood and memory. Affect is appropriate. Cranial Nerves: CN II: Visual sainz full to confrontation, visual acuity intact. CN III, IV, : Pupils equal, round, reactive to light and accommodation. Extraocular movements are normal. CN V: Facial sensation is normal. CN VII: Facial movements symmetrical. CN VIII: Hearing intact to bedside conversation is normal. CN IX, X: Palate elevates symmetrically. CN XI: Shoulder shrug and head turn symmetrical. CN XII: Tongue midline without atrophy or fasciculations. Motor: Bulk and tone normal in all extremities. No significant muscle weakness in arms and legs. No drift. Reflexes: Deep tendon reflexes 2+ and symmetric. Plantar response down-going bilaterally. Coordination: [id number] and [id number] testing normal. No dysmetria. Gait and Station: No obvious gait abnormality. No ataxia or instability. Extrapyramidal: Full facial expressions and blinking. No rigidity. Movements are appropriate with no tremor or abnormality. Speech: Normal; no dysarthria or tremor. Assessment & Plan Assessment & Plan (1) Myasthenia gravis: Comment: ACh Abs at [facility] in 2019: Binding titer is high, blocking and modulating ok CT chest/lungs at [facility] in 2022: Mild emphyesema and granumalous disease. Code(s): G70.00 - Myasthenia gravis without (acute) exacerbation Category: Medical Plan Impression: Antibody positive generalized myasthenia gravis Recommendations: 1. Mycophenolate 500 mg to, 3 times a day 2. Folic acid 1 mg daily 3. Pyridostigmine 60 mg 3 times a day 4. In case of worsening, a biological drug or IVIg with benadryl can be tried. We discussed possibility of trying IVIG again. She said that despite being allergic to it, she had another dose of IVIG with premedication with Benadryl without difficulty. If that is the case, IVIG can be tried again. Alternatively a biological drug can be tried but she was afraid of complications of that type of drugs. Finally there was complication of plasmapheresis that it was not available here and I have to transfer her care to [facility]. At this time, she wanted to wait and see. Coding Level of Care Code Est Pt Level 4 (86399) Diagnoses Myasthenia gravis G70.00
== END ==
LOC: HO.HSM 11:15
PROVIDERS: PCP Internal Medicine; Visit Provider Psychiatry & Neurology Neurology
DX: G70.00 Myasthenia gravis without (acute) exacerbation (principal)
CPT/HCPCS: 99214

== ENCOUNTER → 2025-04-06 11:12 | Outpatient (BNVA) | payer OTHER, SELFPAY | PROVIDERS: PCP Internal Medicine | DX: I10 Essential (primary) hypertension (principal); E11.9 Type 2 diabetes mellitus without complications | CPT/HCPCS: 99211 ==

== ENCOUNTER 2025-04-10 12:49 | Outpatient (AMB) | payer OTHER, SELFPAY ==
--- OUTSIDE RECORDS SUMMARY | 2023-11-03 09:30 | XMS_ITS ---
Author Organization [facility] Address [address] [place] [phone] Care Team Providers Care Training And Development Specialist Name Role Phone Ap GODDARD, Bernadette Lyman Primary Care Provider Un available Terri Jacobo Unavailable [phone] Encounters Encounter Location Date Provider Diagnosis [address] [address] 11/03/2023 Terri Jacobo Plan Of Treatment Next Appt Details Provider Name:Terri ernandez, 05/02/2025 02:30:00 PM, [address] [place], [address], Progress Notes * Dannie FITZGERALDOB: (70 yo F)Acc No.[id number]:11/03/2023 Progress Note Patient: Arnol GUTHRIEba Provider: Socorro Jacobo DPM :1955 A ge:68 Y S ex:Female Date:11/03/2023 Address:[address] [place] [address] [address], [place], [place] Pcp:Jesus Hernandez Subjective: * Chief Complaints: * [...] 11/03/2023 Generated for Janessa perez/Wade/Jamee on: 1 04:17 PM EDT
--- OUTSIDE RECORDS SUMMARY | 2024-03-22 07:15 | XMS_ITS ---
Author Organization [facility] Address [address] [place] [address] Care Team Providers Care Continuous Pickling Line Pickler Name Role Phone Ap GODDARD, Bernadette Lyman Primary Care Provider Un available Terri Jacobo Unavailable [phone] Encounters Encounter Location Date Provider Diagnosis [address] [address] 03/22/2024 Terri Jacobo Plan Of Treatment Next Appt Details Provider Name:Terri ernandez, 05/02/2025 02:30:00 PM, [address] [place], [address], Progress Notes * Dannie FITZGERALDOB: (70 yo F)Acc No.[id number]:03/22/2024 Progress Note Patient: Arnol GUTHRIEba Provider: Socorro Jacobo DPM :1955 A ge:69 Y S ex:Female Date:03/22/2024 Address:[address] [place] [address] [address], [place], [place] Pcp:Jesus Hernandez Subjective: * Chief Complaints: * [...] Date: 1 Generated for Janessa perez/Wade/Jamee on: 04:16 PM EDT
--- OUTSIDE RECORDS SUMMARY | 2024-05-10 11:15 | XMS_ITS ---
Author Organization [facility] Address [address] [place] [address] Care Team Providers Care Melt Superintendant Name Role Phone Ap GODDARD, Bernadette Lyman Primary Care Provider Un available Terri Jacobo Unavailable [phone] Encounters Encounter Location Date Provider Diagnosis [address] [address] 05/10/2024 Terri Jacobo Plan Of Treatment Next Appt Details Provider Name:Terri ernandez, 05/02/2025 02:30:00 PM, [address] [place], [address], Progress Notes * Dannie FITZGERALDOB: (70 yo F)Acc No.[id number]:05/10/2024 Progress Note Patient: Arnol GUTHRIEba Provider: Socorro Jacobo DPM :1955 A ge:69 Y S ex:Female Date:05/10/2024 Address:[address] [place] [address] [address], [place], [place] Pcp:Jesus Hernandez Subjective: * Chief Complaints: * [...] Date: 07/10/2023 Generated for Janessa perez/Wade/Jamee on: 04:17 PM EDT
--- OUTSIDE RECORDS SUMMARY | 2024-07-05 12:00 | XMS_ITS ---
Author Organization [facility] Address [address] [facility] [place] [address] Care Team Providers Care Account General Manager Name Role Phone Ap GODDARD, Bernadette Lyman Primary Care Provider Un available Terri Jacobo Unavailable [phone] Medications Medication SIG (Take, Route, Frequency, Duration) [...] a day; Duration: 30 day(s) Active pyRIDostigmine [place] ER 180 MG 1 tablet Orally Once a day; Duration: 30 day(s) Active Cholecalciferol 25 MCG (1000 UT) 1 capsule Orally Once a day; Duration: 30 day(s) Active oxyBUTYnin Chloride 5 MG 1 tablet Orally Twice a day; Duration: 30 day(s) Active Potassium Active Encounters Encounter Location Date Provider Diagnosis [facility] [address] [address] 07/05/2024 Terri Jacobo Plan Of Treatment Next Appt Details Provider Name:Terri ernandez, 05/02/2025 02:30:00 PM, [address] [place] [address], [address], Progress Notes * Dannie FITZGERALDOB: 6 (70 yo F)Acc No.[id number]:07/05/2024 Progress Note Patient: Arnol GUTHRIEba Provider: Socorro Jacobo DPM :1955 A ge:69 Y S ex:Female Date:07/05/2024 Address:[address] [place], [place] [address] Pcp:Jesus Hernandez Subjective: * Chief Complaints: * [...] Orally Once a day , Taking pyRIDostigmine [place] ER 180 MG Tablet Extended Release 1 [...] 0 07/05/2024 Generated for Janessa perez/Wade/Jamee on: 04:16 PM EDT History and Physical Notes * HPI (History of Present Illness) Category Sub-Category Detail Notes Category Not es At Risk footcare Pt States Last PCP Visit: Date: 4
--- OUTSIDE RECORDS SUMMARY | 2024-10-28 08:45 | XMS_ITS ---
Author Organization [facility] Address [address] [place] [address] Care Team Providers Care Beauty Culturist Name Role Phone Ap GODDARD, Bernadette Lyman Primary Care Provider Un available Terri Jacobo Unavailable [phone] Rain Encounters Encounter Location Date Provider Diagnosis [address] [address] 10/28/2024 Terri Jacobo Plan Of Treatment Next Appt Details Provider Name:Terri ernandez, 05/02/2025 02:30:00 PM, [address] [place] [address], [phone], Progress Notes * Dannie FITZGERALDOB: 6 (70 yo F)Acc No.[id number]:10/28/2024 Progress Note Patient: Shaila MORGANVIRY Magy Provider: Socorro Jacobo DPM :1955 A ge:69 Y S ex:Female Date:10/28/2024 Address:[address] [place] [address] [address], [place] Pcp:Jesus Hernandez Subjective: * Chief Complaints: * [...] 0 10/28/2024 Generated for Janessa perez/Wade/Jamee on: 04:16 PM EDT
--- NOTE | 2025-04-10 13:09 | MHC.PC.OV ---
Vital Signs 04/10/25 13:10 04/10/25 13:23 Height 5 ft 1 in Weight 147 lb BMI 27.8 BP 158/70 H 145/70 H Blood Pressure Location Rt brachial Lt brachial Position Sitting Sitting Respiration 16 Pulse 70 Pulse Source Pulse Oximeter Temp 97.6 F Temp Source Oral Pulse Oximetry (%) 98 Oxygen Delivery Method Room Air Intake Visit Reasons: b/p check Allergies Penicillins (PCN) Allergy (Unknown, Verified 04/10/25 13:14) RASH pregabalin (From Lyrica) Adverse Reaction (Severe, Verified 04/10/25 13:14) skin peeling gabapentin Adverse Reaction (Unknown, Verified 04/10/25 13:14) Dizziness Medication List - Last Reconciled 04/10/25 by Bernadette De Suoza MD amlodipine 5 mg PO BID apixaban 5 mg PO DAILY aspirin 81 mg PO DAILY [bed rail As directed NS] blood pressure test kit-medium As directed to monitor blood pressure blood sugar diagnostic (FreeStyle Lite Strips) qid blood-glucose meter (FreeStyle Lite Meter kit) As directed blood-glucose meter (FreeStyle Lite Meter kit) As directed blood-glucose sensor (FreeStyle Oren 3 Plus Sensor device) As directed use in place of freestyle 3 due to shortage of FS3 blood-glucose,manager net,cont (FreeStyle Oren 3 Canones) As directed chlorthalidone 25 mg PO DAILY cholestyramine (Cholestyramine Light) 4 grams PO DAILY famotidine (Pepcid) 20 mg PO BID ferrous sulfate 325 mg PO DAILY folic acid 1 mg PO DAILY incontinence pad, liner, disp As directed-use up to 4 per day insulin glargine (Lantus Solostar U-100 Insulin) 16 units subcut BEDTIME lancets (FreeStyle Lancets) 4x daily levothyroxine 125 mcg PO DAILY elrlsh-uaxmaffj-qwtecyr (pork) 36,000-114,000- 180,000 unit (Creon) 2 caps PO BID lisinopril 5 mg PO DAILY metformin 1,000 mg PO BID 30 days metoprolol succinate ER 25 mg (1/2 x 50 mg) PO DAILY mycophenolate mofetil 1,000 mg (2 x 500 mg) PO TID@0800,1300,1900 nut.tx.gluc.intol,lac-free,soy (Glucerna oral liquid) 1 ea PO TID oxybutynin chloride ER 10 mg PO DAILY 2 weeks pen needle, diabetic once daily potassium citrate ER 10 mEq PO BID pyridostigmine bromide 180 mg (3 x 60 mg) PO TID rosuvastatin 40 mg PO DAILY [shower bench without back As directed] Tobacco use date assessed: 04/10/25 Dental Screening Dental Screen Date: 03/30/25 HPI b/p check HPI Details Magy is here today for follow-up regarding her blood pressure. She was seen 03/30/2025 for preoperative exam for cystoscopy with retrograde pyelogram schedule on 04/14/2025, but blood pressure at that time was markedly elevated. Patient was recently seen by her human resources operations director who instructed her to increase her amlodipine dose to 5 mg twice a day, but she has only been taking it once a day together with her metoprolol, chlorthalidone, and lisinopril . She has now started taking her amlodipine twice a day as directed, and is here to have her blood pressure checked. Denies experiencing any headache, no lightheadedness, no chest pain, shortness of breath or palpitations. Her blood pressure today is still not at goal , but lower than last visit a week ago. [facility] Medical History Personal history of nicotine dependence Spasm of bladder Ureteral stone with hydronephrosis Hyperparathyroidism Tinnitus Hearing loss Anxiety and depression Diabetes mellitus, with long-term current use of insulin Urinary, incontinence, stress female Wheezing Vitamin B12 deficiency Occlusion of stent of peripheral artery Chronic low back pain History of CVA (cerebrovascular accident) (~10/2020) History of kidney stones Tubular adenoma of colon COVID-19 vaccine series declined Colitis without complication Myasthenia gravis Pernicious anemia Myasthenia gravis Urge urinary incontinence Microalbuminuria Vitamin D deficiency Hypothyroidism Multinodular thyroid HTN (hypertension) Surgical History History of cholecystectomy History of surgery History of amputation of toe Hx of blood clots Status post biopsy of thyroid gland (~2021) History of colonoscopy History of esophagogastroduodenoscopy (EGD) History of bilateral cataract extraction (~2019) History of parathyroidectomy History of lithotripsy (~2013) History of hernia repair History of hysterectomy (~1984) Family History Father Lung cancer Mother Asthma Diabetes HTN (hypertension) Heart attack Sister FH: mental illness Leukemia Mental health disorder Social History Household Members: None Both parents involved: No Caregiver staying overnight: No Housing: Apartment Are you a primary career placement specialist to a significant other at home: No Do you presently have visiting nurse or other home services: Yes ([employer]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 Cristi De Luna, Bertha Robbins, Gallo Leiva and colleagues, with an educational jud from [employer]. Review of Systems Const All systems reviewed & are unremarkable except as noted in HPI and below Neuro Denies Abnormal speech present Physical exam (Primary Care) Vital Signs: Last Vital Signs Temp 97.6 F 04/10/25 13:10 Pulse 70 04/10/25 13:10 Resp 16 04/10/25 13:10 BP 145/70 H 04/10/25 13:23 Pulse Ox 98 04/10/25 13:10 Oxygen Delivery Method Room Air 04/10/25 13:10 BMI result Body Mass Index 27.8 Tobacco/Smoking Status: Tobacco use Status Tobacco use date assessed 04/10/25 04/10/25 13:13 Patient Tobacco Use Status Current someday Tobacco 04/10/25 13:13 Tobacco use type Cigarette 04/10/25 13:13 e-Cigarette/Vaping Use Never Used 04/10/25 13:13 Are you ready to quit: No Thrive Assessment: Date of Thrive Assessment Date Thrive assessed 09/21/24 04/10/25 13:13 Const General: no acute distress and alert Orientation/consciousness: patient oriented x3 HENMT Face and sinus: Yes face symmetric Mouth: Normal oral and palatal mucosa present and moist mucous membranes Neck Neck: Yes full ROM, Yes no lymphadenopathy and Yes supple Resp Effort & Inspection: normal respiratory effort and able to speak in complete sentences Cardio Other: S1-S2 present regular rate and rhythm GI Palpation (GI): Soft to palpation, nontender and no guarding Auscultation: normal bowel sounds Skin General skin exam: no rashes or lesions noted Neuro General: patient oriented x3, moves all extremities, no focal motor deficits, CN's II-XI intact bilaterally and decrease sensation to monofilament (In both lower extremities) Speech: No Abnormal speech present Extrem Other: No pedal edema noted, no gross bone deformity seen, Absent 5th digits in both feet Results Reviewed Results Reviewed: Name: Magy Fitzgerald I Age/Sex: 70/F : 1955 Unit#: [id number] Attend Dr: Massiel New MD Re03/16/25 Status: REG RCR Location: [facility] Disch: SPEC : [id number] CECI: 03/16/25 STATUS: COMP REQ : [id number] RECD: 03/16/[address]: Massiel New MD COMP: 03/16/25 ENTERED: 03/16/[address]: Bernadette De Souza MD ORDERED: CBC Auto Diff Test Result Flag Reference WBC 8.1 4.8-10.8 X10*3/uL RBC 5.46 4.20-5.50 X10*6/uL HGB 13.0 12.0-16.0 g/dl HCT 40.9 37.0-47.0 % MCV 74.9 L 80.0-98.0 fL MCH 23.8 L 27.0-33.0 pg MCHC 31.8 31.0-35.0 g/dl RDW 19.9 H 11.0-16.0 % PLT 290 # 160-400 X10*3/uL MPV 9.7 9.4-12.3 fL Neut Pct Auto 64.8 45-73 % ImGran Pct Auto 0.2 0.0-0.4 % Lymp Pct Auto 24.9 20-40 % [place] Pct Auto 8.1 2-11 % Eos Pct Auto 1.4 0-4 % Baso Pct Auto 0.6 0-2 % NRBC Pct Auto 0.0 0.0-0.2 /100WBC ANC Neut Abs # 5.2 2.0-8.3 x10*3/uL ImGran Abs Auto 0.02 0.00-0.03 X10*3/uL Lymph Abs Auto 2.0 1.2-4.9 X10*3/uL [place] Abs Auto 0.7 0.1-1.2 X10*3/uL Eos Abs Auto 0.1 0.0-0.4 X10*3/uL Baso Abs Auto 0.1 0.0-0.2 X10*3/uL NRBC Abs Auto 0.000 0.0-0.012 X10*3/uL RUN: 04/11/25 1520 PAGE 1 [facility] [address] [place] [id number] Clay Miller: John Mast M.D. Specimen Inquiry Name: Magy Fitzgerald I Age/Sex: 70/F : 1955 Unit#: [id number] Attend Dr: Kalin Sanford MD Re03/27/25 Status: DEP REF Location: [facility] Disch: SPEC : [id number] CECI: 03/27/25 STATUS: COMP REQ : [id number] RECD: 03/27/[address]: Kalin Sanford MD COMP: 03/27/25-1703 ENTERED: 03/27/25-125 [facility] DR: Bernadette De Souza MD ORDERED: Lipid Panel, Free T4, TSH Test Result Flag Reference Triglyceride 127 <150 mg/dL Desirable Triglyceride: less than 150 mg/dL Borderline High Triglyceride 150-199 mg/dL High Triglyceride: 200-499 mg/dL Very High Triglyceride: greater than or equal to 5OO mg/dL Cholesterol 131 <200 mg/dL Desirable Cholesterol: less than 200 mg/dL Borderline High Cholesterol: 200-239 mg/dL High Cholesterol: greater than 239 mg/dL LDL Calculated 61 <100 mg/dL Desirable LDL: less than 100 mg/dL Near Optimal/Above Optimal LDL: 110-129 mg/dL Borderline High LDL: 130-159 mg/dL High LDL: 160-189 mg/dL Very High LDL: greater than or equal to 190 mg/dL HDL 45 >40 mg/dL Desirable HDL: greater than 40 mg/dL Note: This HDL assay may give artificially low results in patients with liver disease. Free T4 0.98 0.71-1.85 ng/dL TSH 3rd Gen. 5.35 H 0.32-4.0 uIU/mL Note: A sustained TSH level above 2.5 uIU/mL may warrant further investigation. Laboratory Tests 03/17/25 13:13 Hgb A1c (Clinic) 7.6 H alton: Magy Fitzgerald I Age/Sex: 70/F : 1955 Unit#: [id number] Attend Dr: Massiel New MD Re03/16/25 Status: REG RCR [facility] Disch: SPEC : [id number] CECI: 03/16/25 STATUS: COMP REQ : [id number] RECD: 03/16/[address]: Massiel New MD COMP: 03/16/25 ENTERED: 03/16/[address]: Bernadette De Souza MD ORDERED: CMP Test Result Flag Reference Sodium 138 135-145 mmol/L Potassium 4.3 # 3.3-5.1 mmol/L CL 106 96-108 mmol/L CO2 25 22-29 mmol/L Gap 11 L 12-20 BUN 18 H 9-16 mg/dL Creat 0.68 0.5-1.4 mg/dL Estimated CrCl 65.9 Provided height and weight: 154.94 cm, 62 kg. eGFR (calculated from the MDRD study equation) and eCrCl (calculated from the Cockcroft-Gault equation) are based on different parameters and may not yield comparable results. If eCrCl result is absurd, please check patient's height/weight. eGFR > 60 Chronic Kidney Disease: Estimated GFR < 60 mL/min/1.73m2 Severe Kidney Disease: Estimated GFR < 15 mL/min/1.73m2 Glucose, Random 179 H 60-115 mg/dL CA 10.0 8.4-10.2 mg/dL Total Bili 0.2 0.0-1.0 mg/dL AST (GOT) 23 5-31 U/L ALT (GPT) 18 0-31 U/L Protein, Total 7.7 6.5-8.0 g/dL Alb 4.6 3.5-5.0 g/dL Alk Phos 80 39-117 U/L Coding Level of Care Code Est Pt Level 4 (92878) Complex EM visit Add On G2211 Diagnoses Preoperative examination Z01.818 Hypertension, unspecified type I10 Hypertension type: unspecified Mixed hyperlipidemia E78.2 Hyperlipidemia type: mixed hyperlipidemia Type 2 diabetes mellitus with stage 2 chronic kidney disease, with long-term current use of insulin E11.22; N18.2; Z79.4 Diabetes mellitus type: type 2 Diabetes mellitus complication status: with kidney complications Diabetes mellitus complication detail: with chronic kidney disease Chronic kidney disease stage: stage 2 (mild) 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 PAD (peripheral artery disease) I73.9 Myasthenia gravis G70.00 Anxiety and depression F41.9; F32.A Assessment & Plan Assessment & Plan (1) Preoperative examination: Code(s): Z01.818 - Encounter for other preprocedural examination (2) HTN (hypertension): Code(s): I10 - Essential (primary) hypertension Category: Medical Qualifiers: Hypertension type: unspecified Qualified Code(s): I10 - Essential (primary) hypertension Plan: Blood pressure not at goal of less than 130/80 but lower than last check a week ago. Continue taking amlodipine 5 mg 1 tablet twice a day, chlorthalidone 25 mg in the morning and lisinopril 5 mg once a day (3) HLD (hyperlipidemia): Code(s): E78.5 - Hyperlipidemia, unspecified Category: Medical Qualifiers: Hyperlipidemia type: mixed hyperlipidemia Qualified Code(s): E78.2 - Mixed hyperlipidemia (4) Diabetes mellitus, with long-term current use of insulin: Code(s): E11.9 - Type 2 diabetes mellitus without complications; Z79.4 - long term care social worker (current) use of insulin Category: Medical Qualifiers: Diabetes mellitus type: type 2 Diabetes mellitus complication status: with kidney complications Diabetes mellitus complication detail: with chronic kidney disease Chronic kidney disease stage: stage 2 (mild) Qualified Code(s): E11.22 - Type 2 diabetes mellitus with diabetic chronic kidney disease; N18.2 - Chronic kidney disease, stage 2 (mild); Z79.4 - skilled nursing (current) use of insulin (5) Hypothyroidism: Code(s): E03.9 - Hypothyroidism, unspecified Category: Medical Qualifiers: Hypothyroidism type: postablative Qualified Code(s): E89.0 - Postprocedural hypothyroidism (6) PAD (peripheral artery disease): Code(s): I73.9 - Peripheral vascular disease, unspecified Category: Medical (7) Myasthenia gravis: Code(s): G70.00 - Myasthenia gravis without (acute) exacerbation Category: Medical (8) Anxiety and depression: Code(s): F41.9 - Anxiety disorder, unspecified; F32.A - Depression, unspecified Category: Medical Plan 70-year-old female with complex past medical history, which include including hypertension, hyperlipidemia, myasthenia gravis, history of CVA. October 2020, and history of peripheral vascular disease with previous right fem-pop bypass , seen for preoperative exam on 03/30/2025 for cystoscopy with retrograde pyelograms scheduled for 04/14/2025. She has diabetes mellitus with latest hemoglobin A1c at 7.6%, higher than last check, continued on current dose of Lantus, metformin. Her myasthenia gravis is stable. Currently on rosuvastatin 40 mg daily for treatment of dyslipidemia. Continue on on current dose levothyroxine for hypothyroidism. Her Blood pressure is better controlled as compared to last visit on 03/30/2025, continue with amlodipine 5 mg , take 1 tablet twice a day, as advised by human resources operations director, continue chlorthalidone, lisinopril, metoprolol at the same dose. She denies having headaches, chest pain, shortness of breath, palpitations , weakness or nausea . EKG , done on 03/13/2025 at human resources operations director office, showed normal sinus rhythm with no acute ST-T changes seen. She has been advised to stop apixaban 2 days prior to procedure , and hold evans ing aspirin at least 5 days prior to procedure. Patient with a low to moderate cardiac risk index for proposed surgery Medications: Refilled albuterol sulfate 90 mcg/actuation (ProAir HFA) 2 puffs inhalation Q6H PRN 8.5 grams 1RF for wheezing
[2025-04-10 13:10] VITALS: BP 158/70; PULSE 70; RESP 16; TEMP 36.4; O2SAT 98; BMI 27.8
[2025-04-10 13:23] VITALS: BP 145/70
--- OUTSIDE RECORDS SUMMARY | 2025-04-10 16:16 | XMS_ITS | Data Portability ---
Author Organization [facility] Address [address] [place] [address] Care Team Providers Care Global Climate Change Researcher Name Role Phone [facility] Referring Provider Assessment Encounter Date Assessment Date Assessment LastModified by Organization Details LastModified Time 01/13/2022 01/13/2022 I have reviewed and agree with the assessment and plan as documented by the risk control representative. I provided real-time medical direction for this [...] Mott MD [facility] [address] [place] [phone] 01/13/2022 20:36:58 02/19/2022 12:51:59 Chronic deep venous thrombosis of lower extremity [id number] 16013 I82.509 Health Concerns Section Related Observation LastModified by Organization Detai ls LastModified Time None Recorded Concern Status LastModified by Organization Details LastModified Time None Recorded Advance Directives Directive None Recorded Payers Insurance Date Sequence Insurance Name Policy Number Policy Nicolas Covered Member ID Nicolas Member ID Guarantor Name 08/17/2023 1 [facility] - DOS PRIOR TO 2022 - DUAL ELIGIBLE (MEDICARE REPLACEMENT/AD VANTAGE - HMO) Magy Fitzgerald [id number] Magy Fitzgerald 08/17/2023 1 [facility] [employer] - DOS ON OR AFTER 2022 - DUAL ELIGIBLE - CUSTODIAL OPTIONS AND ONE CARE (MEDICARE REPLACEMENT/AD VANTAGE - HMO) Magy Fitzgerald [id number] Magy Fitzgerald Notes Date Note Type Note Provider Name and Address Organization Details Recorded Time 01/13/2022 text/html [facility] Nursing Assessment: Chief Complaints: Pain PMH: Diabetes Allergies: Unknown Comments: FINISHED GARMENT INSPECTOR concern for eval L foot pain and 5th toe discoloration increased pain this week decline ED at this time deny fevers await surgery poor historian Itzel oMtt MD [address] [facility], [place], [address], [employer] 01/13/2022 20:48:35 OBGyn Episode No OBEpisode recorded.
--- OUTSIDE RECORDS SUMMARY | 2025-04-10 16:16 | XMS_ITS | Clinical Summary ---
Author Organization [facility] Address [address] [facility] [address] [place] [phone] Phone Care Team Providers Care Certified Physical Therapist Assistant Name Role Phone Unknown, Unknown Primary Care [...] file Medical Devices Not on file Insurance [facility] MEDICARE REPLACEMENT [facility] MEDICARE REPLACEMENT Care Teams Certified Physical Therapist Assistant Relationship Specialty Start Date End Date Unknown, Unknown, PCP - General 06/12/23 Additional Source Comments The information contained in this document represents components of the legal health record. It is not the complete legal health record.[facility]
--- OUTSIDE RECORDS SUMMARY | 2025-04-10 16:16 | XMS_ITS | Clinical Summary ---
Author Organization [facility] Address [address] [place] [address] [place] [address] Phone Care Team Providers Care Prosthetic Aides Teacher Name Role Phone Sabas De Souza MD Primary Care Provider [phone]- [phone] Allergies Active Allergy Reactions Criticality Noted Date [...] FOR 7 DAYS NEEDED FOR PAIN Active amLODIPine (NORVASC) 5 MG tablet TAKE 2 TABLETS BY MOUTH 1 TIME EACH DAY. 180 tablet 2 05/31/20 24 Active potassium citrate 10 MEQ (1080 MG) CR tablet TAKE 1 TABLET BY MOUTH IN THE MORNING AND EVENING WITH MEALS DO NOT CRUSH/CHEW/SP LIT 180 tablet 03/23/20 25 Active hydroCHLOROthi azide 25 MG tablet TAKE 1 TABLET BY MOUTH EVERY DAY 90 tablet 3 04/05/20 25 Active hydroCHLOROthi azide 25 MG tablet TAKE 1 TABLET BY MOUTH 1 TIME EACH DAY. 90 tablet 3 03/07/20 24 025 Discontinued potassium citrate 10 MEQ (1080 MG) CR [...] 2 diabetes mellitus 11/09/202008/2020 Hyperparathyroidism 06/23/2017 01/16/20 Carpal tunnel syndrome 11/20/201601/15 Gastroesophageal reflux disease [...] Encounters Date Type Department Care Team Description 04/05/2025 [facility]ill [facility] [address] [place] [address] Misael Mcneill MD 03/23/2025 Refill [facility] [address] [place] [address] Ambrosio Brewer MD from Last 3 Months [...] Visit [facility] [address] [place] [address] Misael Mcneill MD [address] [facility] [address] [place] [phone] Health Maintenance Due Date Last Done Comments [...] A1C 05/14/2023 02/11/2023, 1111/2019 Influenza Vaccine (#1) 2025 5, 06/01/2014, 04/07/2013, [...] Most Recently Relevant to Health Maintenance Insurance [facility] ([id number]) [facility] ([id number]) Care Teams Prosthetic Aides Teacher Relationship Specialty Start Date End Date Sabas De Souza MD [address] [place] [phone] PCP - General Internal Medicine 12/24/20
--- OUTSIDE RECORDS SUMMARY | 2025-04-10 16:16 | XMS_ITS | Patient Health Record ---
Author Organization [facility] Address [address] [facility] [place] [address] Care Team Providers Care Materials Director Name Role Phone Ap GODDARD, Bernadette Lyman Primary Care Provider Un available Jr Jacoboen Unavailable [phone] Allergies Allergen (clinical drug ingredient) Drug/Non Drug [...] a day; Duration: 30 day(s) Not-Taking pyRIDostigmine Two Dot ER 180 MG 1 tablet Orally Once [...] Polyneuropathy due to type 2 diabetes mellitus ([id number]) Type 2 diabetes mellitus with polyneuropathy (E11.42) Active confirmed Problem Bilateral atherosclerosis of arteries of lower limbs (disorder) ([id number] ) Atherosclerosis of artery of both lower extremities (I70.203) Active confirmed Vital Signs Blood pressure diastolic 80 mm Hg 12/28/2024 Height 5ft 1in in 12/28/2024 Blood pressure systolic 130 mm Hg 12/28/2024 Weight 140 lbs 12/28/2024 BMI 26.45 kg/m2 12/28/2024 Encounters Encounter Location Date Provider Diagnosis [address] [address] 12/28/2024 Terri Jacobo Atherosclerosis of artery of both lower extremities I70.203 ; Other hammer toe(s) (acquired), left foot M20.42 ; Type 2 diabetes mellitus with polyneuropathy E11.42 and Other hammer toe(s) (acquired), right foot M20.[address] [address] 04/25/2024 Terri Jacobo [address] [address] 07/05/2024 Terri Jacobo [address] [address] 12/28/2024 Terri Jacobo Assessments Encounter Date Diagnosis [...] Details Provider Name:Terrisukhwinder ernandez, 05/02/2025 02:30:00 PM, [address] [place] [address], [phone], Insurance Providers Payer Name Payer Address Payer Phone Subscriber Number Group Number Insured Name Patient Relationship to Insured Coverage Start Date Coverage End Date [facility] [employer] Claims [address] [place] [address] [id number] Magy Trejo Self - patient is the [...]
--- OUTSIDE RECORDS SUMMARY | 2025-04-10 16:17 | XMS_ITS | Encounter Summary ---
Author Organization [facility] Address [address] [place] [address] Phone Care Team Providers Care Dispatcher Chief Oil Name Role Phone Sabas De Souza MD Primary Care Provider +1- [phone] Reason for Visit * Reason Comments Med Refill Encounter Details Date Type Department Care Team (Late Contact Info) Description 04/05/2025 Refill [facility] [place] [address] [place] [address] Misael Mcneill MD [address] [address] Social History Tobacco Use Types [...] Visit [facility] [address] [place] [address] Misael Mcneill MD [address] [address] documented as of this encounter Visit Diagnoses Not on filedocumented in this encounter Care Teams Dispatcher Chief Oil Relationship Specialty Start Date End Date Sabas De Souza MD [address] [facility] [place] [address] PCP - General Internal Medicine 12/24/20 documented as of this encounter
--- OUTSIDE RECORDS SUMMARY | 2025-04-10 16:17 | XMS_ITS | Encounter Summary ---
Author Organization [facility] Address [address] [facility] [address] [place] [address] Phone Care Team Providers Care Order Dispatcher Name Role Phone Sabas De Souza MD Primary Care Provider +1- [phone] Encounter Details Date Type Department Care Team (Late Contact Info) Description 10/31/2021 Documentation Only [facility] [address] [facility] [address] [place] [address] Misael Mcneill MD [address] [address] Social History Tobacco Use Types [...] Visit [facility] [address] [place] [phone] Misael Mcneill MD [address] [address] documented as of this encounter Visit Diagnoses Not on filedocumented in this encounter Care Teams Order Dispatcher Relationship Specialty Start Date End Date Sabas De Souza MD [facility] [place] [address] PCP - General Internal Medicine 12/24/20 documented as of this encounter
--- OUTSIDE RECORDS SUMMARY | 2025-04-10 16:17 | XMS_ITS | Encounter Summary ---
Author Organization [facility] Address [address] [facility] [address] [place] [address] Phone Care Team Providers Care Trucking Manager Name Role Phone Sabas De Souza MD Primary Care Provider +1- [phone] Encounter Details Date Type Department Care Team ([facility] Contact Info) Description 12/03/2020 Orders Only [facility] [address] [place] [address] Misael Mcneill MD [address] [facility] [address] [place] [phone] Persistent proteinuria; Type 2 diabetes mellitus with [...] Department Care Team ([facility] Contact Info) Description 10/19/2025 2:15 PM EDT Office Visit [facility] [address] [place] [phone] Misael Mcneill MD [address] [facility] [address] [place] [address] documented as of this encounter Visit Diagnoses Diagnosis Persistent proteinuria Type 2 diabetes mellitus with diabetic chronic kidney disease (HCC) Hypertensive disorder documented in this encounter Care Teams Trucking Manager Relationship Specialty Start Date End Date Sabas De Souza MD [facility] [place] [address] PCP - General Internal Medicine 12/24/20 documented as of this encounter
--- OUTSIDE RECORDS SUMMARY | 2025-04-10 16:17 | XMS_ITS | Clinical Summary ---
Author Organization [address] Address [address] [place] [address] Phone Care Team Providers Care Ball Ender Name Role Phone Unavailable Primary Care Provider [...] complete this topic Insurance MEDICAID - [place] [facility] Member Subscriber Plan / Payer (Ef fective 2021-Present) Name:Magy Fitzgerald i Relation to Subscriber:Self Name:Amilcar Magy I Payer ID:[id number] Group ID:[id number] Type:Not on file Address: [address] [id number]
--- OUTSIDE RECORDS SUMMARY | 2025-04-10 16:17 | XMS_ITS | Encounter Summary ---
Author Organization [facility] Address [address] [facility] [address] [place] [address] Phone Care Team Providers Care Communications Editor Name Role Phone Sabas De Souza MD Primary Care Provider +1- [phone] Encounter Details Date Type Department Care Team (Late Contact Info) Description 10/28/2021 Telephone [facility] [address] [facility] [address] [place] [address] Misael Mcneill MD [address] [facility] [address] [place] [phone] Social History Tobacco Use Types Packs/Day Years [...] speak with you. She was at the [facility] ER and was told she has kidney stones. She would like to speak with you about this. Please call her back at [phone] Thank you documented in this encounter Plan of Treatment Upcoming Encounters Date Type Department Care Team (Late st Contact Info) Description 10/19/2025 2:15 PM EDT Office Visit [facility] [address] [place] [address] Misael Mcneill MD [address] [facility] [address] [place] [phone] documented as of this encounter Visit Diagnoses Not on filedocumented in this encounter Care Teams Communications Editor Relationship Specialty Start Date End Date Sabas De Souza MD [facility] [place] [address] PCP - General Internal Medicine 12/24/20 documented as of this encounter
--- OUTSIDE RECORDS SUMMARY | 2025-04-10 16:17 | XMS_ITS | Encounter Summary ---
Author Organization [facility] Address [address] [place] [address] Care Team Providers Care Threading Machine Setter Name Role Phone Unavailable Primary Care Provider Unavailabl e Encounter Details Date Type Department Care Team (Late st Contact Info) Description 10/24/2024 Lab Requisition [facility] - Main Lab [address] [facility] [place] [address] Sasha Storm PA [address] [place] [address] Gross hematuria Social History Tobacco Use Types [...] AM EDT) Final Diagnosis A. Urine, Voided, [id number]: Negative for high grade urothelial carcinoma. Results of UroVysion fluorescence in situ hybridization (FISH) testing: CEP3: Normal CEP7: Normal CEP17: Normal LSI 9p21: Normal Interpretation: Normal profile Controls stained appropriately. Note: The results are intended as a screening device and should be interpreted in association with other clinical and pathological findings. 11/04/2024 2:06 PM EDT [facility] Clinical Information Gross hematuria R31.0 Urine Cytology/FISH (now) 11/04/2024 2:06 PM EDT [facility] Gross Description A. Urine, Voided, [id number]: Received one ThinPrep slide for cytology and one ThinPrep slide for UroVysion FISH 11/04/2024 2:06 PM EDT [facility] Disclaimer Unless otherwise specified, all tissue is 10% NB formalin fixed and paraffin embedded. Technical pathology services provided by [facility] at [address] [place] [address] [address], [place] [address] (CLIA #[id number]/Екатерина Elliott MD, Paint Prep Technician) 11/04/2024 2:06 PM EDT [facility] Tissue Urine specimen from urethra / Unknown 10/18/2024 10/24/2024 9:17 AM EDT us Sasha [facility] PATHOLOGY ORDERABLES Final Result [facility] [address] [place] [address], documented in this encounter Visit Diagnoses Diagnosis Gross hematuria documented in this encounter
== END 2025-04-10 13:36 | disposition home or self-care (01) ==
LOC: HO.HMCC 12:50
PROVIDERS: PCP Internal Medicine; Visit Provider Internal Medicine
DX: I12.9 Hypertensive chronic kidney disease with stage 1 through stage 4 chronic kidney disease, or unspecified chronic kidney disease (principal); Z79.4 Long term (current) use of insulin; E11.22 Type 2 diabetes mellitus with diabetic chronic kidney disease; G70.00 Myasthenia gravis without (acute) exacerbation; Z01.818 Encounter for other preprocedural examination; N18.2 Chronic kidney disease, stage 2 (mild); E78.2 Mixed hyperlipidemia; E89.0 Postprocedural hypothyroidism; I73.9 Peripheral vascular disease, unspecified; F41.9 Anxiety disorder, unspecified; F32.A Depression, unspecified

== ENCOUNTER → 2025-04-10 12:49 | Outpatient (BNVA) | payer OTHER, SELFPAY | PROVIDERS: PCP Internal Medicine; Visit Provider Internal Medicine | DX: Z01.818 Encounter for other preprocedural examination (principal); E78.2 Mixed hyperlipidemia; E11.22 Type 2 diabetes mellitus with diabetic chronic kidney disease; I12.9 Hypertensive chronic kidney disease with stage 1 through stage 4 chronic kidney disease, or unspecified chronic kidney disease; N18.2 Chronic kidney disease, stage 2 (mild); E89.0 Postprocedural hypothyroidism; I73.9 Peripheral vascular disease, unspecified; G70.00 Myasthenia gravis without (acute) exacerbation; F41.9 Anxiety disorder, unspecified; F32.A Depression, unspecified; Z79.4 Long term (current) use of insulin; Z79.899 Other long term (current) drug therapy | CPT/HCPCS: 99212 ==

== ENCOUNTER 2025-05-03 11:25 | Outpatient (REF) | payer OTHER, SELFPAY ==
--- OUTSIDE RECORDS SUMMARY | 2023-11-03 08:30 | XMS_ITS ---
Author Organization [facility] Address [address] [place] [phone] Care Team Providers Care Wide Piece Goods Inspector Name Role Phone Ap GODDARD, Bernadette Lyman Primary Care Provider Un available Terri Jacobo Unavailable [phone] Encounters Encounter Location Date Provider Diagnosis [address] [address] 11/03/2023 Terri Jacobo Plan Of Treatment Next Appt Details Provider Name:Terri ernandez, 08/09/2025 01:00:00 PM, [address] [place] [address], [id number], Progress Notes * Dannie FITZGERALDOB: (70 yo F)Acc No.[id number]:11/03/2023 Progress Note Patient: Arnol GUTHRIEba Provider: Socorro Jacobo DPM :1955 A ge:68 Y S ex:Female Date:11/03/2023 Address:[address] [place] [address] [address], [place], [place] Pcp:Jesus Hernandez Subjective: * Chief Complaints: * * Medical History: Objective: * Vitals: Assessment: Plan: * Treatment: * Images: * The named appointment provid er may or may not be the originator of this progress note, and it is not deemed complete until electronically signed by the appointment provider. Sign off status: Pending * Provider: Socorro Jacobo DPM Date: 0 11/03/2023 Generated for Janessa perez/Wade/Jamee on: 1 07/03/2024 10:30 PM EST
--- OUTSIDE RECORDS SUMMARY | 2024-03-22 06:15 | XMS_ITS ---
Author Organization [facility] Address [address] [place] [address] Care Team Providers Care Extension Service Specialist Name Role Phone Ap GODDARD, Bernadette Lyman Primary Care Provider Un available Terri Jacobo Unavailable [phone] Encounters Encounter Location Date Provider Diagnosis [address] [address] 03/22/2024 Terri Jacobo Plan Of Treatment Next Appt Details Provider Name:Terri ernandez, 08/09/2025 01:00:00 PM, [address] [place] [address], [address], Progress Notes * Dannie FITZGERALDOB: (70 yo F)Acc No.[id number]:03/22/2024 Progress Note Patient: Arnol GUTHRIEba Provider: Socorro Jacobo DPM :1955 A ge:69 Y S ex:Female Date:03/22/2024 Address:[address] [place] [address] [address], [place], [place] Pcp:Jesus Hernandez Subjective: * Chief Complaints: * * Medical History: Objective: * Vitals: Assessment: Plan: * Treatment: * Images: * The named appointment provid er may or may not be the originator of this progress note, and it is not deemed complete until electronically signed by the appointment provider. Sign off status: Pending * Provider: Socorro Jacobo DPM Date: 1 Generated for Janessa perez/Wade/Jamee on: 1 07/03/2024 10:31 PM EST
--- OUTSIDE RECORDS SUMMARY | 2024-05-10 10:15 | XMS_ITS ---
Author Organization [facility] Address [address] [place] [address] Care Team Providers Care Slat Basket Maker Name Role Phone Ap GODDARD, Bernadette Lyman Primary Care Provider Un available Terri Jacobo Unavailable [phone] Encounters Encounter Location Date Provider Diagnosis [address] [address] 05/10/2024 Terri Jacobo Plan Of Treatment Next Appt Details Provider Name:Terri ernandez, 08/09/2025 01:00:00 PM, [address] [place] [address], [address], Progress Notes * Dannie FITZGERALDOB: (70 yo F)Acc No.[id number]:05/10/2024 Progress Note Patient: Arnol GUTHRIEba Provider: Socorro Jacobo DPM :1955 A ge:69 Y S ex:Female Date:05/10/2024 Address:[address] [place] [address] [address], [place], [place] Pcp:Jesus Hernandez Subjective: * Chief Complaints: * * Medical History: Objective: * Vitals: Assessment: Plan: * Treatment: * Images: * The named appointment provid er may or may not be the originator of this progress note, and it is not deemed complete until electronically signed by the appointment provider. Sign off status: Pending * Provider: Socorro Jacobo DPM Date: 07/10/2023 Generated for Janessa perez/Wade/Jamee on: 07/03/2024 10:31 PM EST
--- OUTSIDE RECORDS SUMMARY | 2024-07-05 11:00 | XMS_ITS ---
Author Organization [facility] Address [address] [facility] [place] [address] Care Team Providers Care Metallography Teacher Name Role Phone Ap GODDARD, Bernadette Lyman Primary Care Provider Un available Terri Jacobo Unavailable [phone] Medications Medication SIG (Take, Route, Frequency, Duration) Notes Start Date End Date Status Bactrim DS 800-160 MG 1 tablet Orally every 12 hrs; Duration: 5 days 09/16/2022 Not-Taking Ciclopirox Olamine 0.77 % 1 application to affected area Externally to feet Twice a day; Duration: 30 days Not-Taking Clotrimazole-Betamethason e 1-0.05 % APPLY TO AFFECTED AREA ON FEET TWICE A DAY; Duration: 30 Active Meloxicam 15 MG as directed Orally Once a day; Duration: 25 days from urgent care Not-Taking Bactrim 09/22/22 from Urgent care Not-Taking oxyCODONE ER Not-Darshan ing Bactrim DS 800-160 MG 1 tablet Orally every 12 hrs; Duration: 10 day(s) 06/03/2023 Not-Taking Metoprolol Succinate ER 25 MG Oral; Duration: 90 Active Atorvastatin Calcium 80 MG 1 tablet Orally Once a day; Duration: 30 day(s) Not-Taking hydroCHLOROthiazide 25 MG 1 tablet in morning Orally Once a day; Duration: 30 day(s) Not-Taking amLODIPine Besylate 5 MG 1 tablet Orally Once a day; Duration: 30 day(s) Active Levothyroxine Sodium 137 MCG 1 tablet in the morning on an empty stomach Orally Once a day; Duration: 30 day(s) Active Extra Depth Orthopedic Shoes (1 Pair) with Customized Heat Molded Multidensity Innersoles (3 Pair) as directed Dx: NIDDM/Polyneuropath y (E11.42), Hammertoe Foot Deformity (M20.41,M20.42), Preulcerative Skin Lesion(s) (L85.1 09/16/2022 Active Extra Depth Orthopedic Shoes (1 Pair) with Customized Heat Molded Multidensity Innersoles (3 Pair) as directed Add filler left shoe _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 Dx: NIDDM/Polyneuropath y (E11.42), Hammertoe Foot Deformity (M20.41,M20.42), Preulcerative Skin Lesion(s) (L85.1 07/02/2022 Active metFORMIN HCl 1000 MG 1 tablet with a meal Orally Once a day; Duration: 30 day(s) Active Ramipril 10 MG 1 capsule Orally Once a day; Duration: 30 day(s) Active Rosuvastatin Calcium 40 MG 1 tablet Orally Once a day; Duration: 30 day(s) Active pyRIDostigmine [place] ER 180 MG 1 tablet Orally Once a day; Duration: 30 day(s) Active Cholecalciferol 25 MCG (1000 UT) 1 capsule Orally Once a day; Duration: 30 day(s) Active oxyBUTYnin Chloride 5 MG 1 tablet Orally Twice a day; Duration: 30 day(s) Active Potassium Active Encounters Encounter Location Date Provider Diagnosis [facility] [address] [address] 07/05/2024 Terri Jacobo Plan Of Treatment Next Appt Details Provider Name:Terri ernandez, 08/09/2025 01:00:00 PM, [address] [place] [address], [address], Progress Notes * Dannie FITZGERALDOB: 6 (70 yo F)Acc No.[id number]:07/05/2024 Progress Note Patient: Arnol GUTHRIEba Provider: Socorro Jacobo DPM :1955 A ge:69 Y S ex:Female Date:07/05/2024 Address:[address] [place], [place] [address] Pcp:Jesus Hernandez Subjective: * Chief Complaints: * * HPI: A t Risk footcare: Pt States Last PCP Visit: Minna herndon 0 11/16/2023 * Medical History: * Medications: T aking Potassium , Taking oxyBUTYnin Chloride 5 MG Tablet 1 tablet Orally Twice a day , Taking Cholecalciferol 25 MCG (1000 UT) Capsule 1 capsule Orally Once a day , Taking Rosuvastatin Calcium 40 MG Tablet 1 tablet Orally Once a day , Taking Ramipril 10 MG Capsule 1 capsule Orally Once a day , Taking pyRIDostigmine [place] ER 180 MG Tablet Extended Release 1 tablet Orally Once a day , Taking metFORMIN HCl 1000 MG Tablet 1 tablet with a meal Orally Once a day , Taking Levothyroxine Sodium 137 MCG Tablet 1 tablet in the morning on an empty stomach Orally Once a day , Taking amLODIPine Besylate 5 MG Tablet 1 tablet Orally Once a day , Taking Extra Depth Orthopedic Shoes (1 Pair) with Customized Heat Molded Multidensity Innersoles (3 Pair) as directed Add filler left shoe _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 Dx: NIDDM/Polyneuropathy (E11.42), Hammertoe Foot Deformity (M20.41,M20.42), Preulcerative Skin Lesion(s) (L85.1 , Taking Extra Depth Orthopedic Shoes (1 Pair) with Customized Heat Molded Multidensity Innersoles (3 Pair) as directed Dx: NIDDM/Polyneuropathy (E11.42), Hammertoe Foot Deformity (M20.41,M20.42), Preulcerative Skin Lesion(s) (L85.1 , Taking Metoprolol Succinate ER 25 MG Tablet Extended Release 24 Hour Oral , Taking Clotrimazole-Betamethasone 1-0.05 % Cream APPLY TO AFFECTED AREA ON FEET TWICE A DAY , Not-Taking/PRN hydroCHLOROthiazide 25 MG Tablet 1 tablet in the morning Orally Once a day , Not-Taking/PRN Atorvastatin Calcium 80 MG Tablet 1 tablet Orally Once a day , Not-Taking/PRN Bactrim DS 800- 160 MG Tablet 1 tablet Orally every 12 hrs , Not-Taking/PRN oxyCODONE ER , Not- Taking/PRN Bactrim , Notes to Pharmacist: 09/22/22 from Urgent care, Not-Taking/PRN Meloxicam 15 MG Tablet as directed Orally Once a day , Notes to Pharmacist: from urgent care, Not-Taking/PRN Ciclopirox Olamine 0.77 % Cream 1 application to affected area Externally to feet Twice a day , Not-Taking/PRN Bactrim DS 800-160 MG Tablet 1 tablet Orally every 12 hrs Objective: * Vitals: Assessment: Plan: * Treatment: * Images: * The named appointment provid er may or may not be the originator of this progress note, and it is not deemed complete until electronically signed by the appointment provider. Sign off status: Pending * Provider: Socorro Jacobo DPM Date: 0 07/05/2024 Generated for Janessa perez/Wade/Jamee on: 07/03/2024 10:30 PM EST History and Physical Notes * HPI (History of Present Illness) Category Sub-Category Detail Notes Category Not es At Risk footcare Pt States Last PCP Visit: Date: 4
--- OUTSIDE RECORDS SUMMARY | 2024-10-28 07:45 | XMS_ITS ---
Author Organization [facility] Address [address] [place] [address] Care Team Providers Care Senior Cytotechnologist Name Role Phone Ap GODDARD, Bernadette Lyman Primary Care Provider Un available Terri Jacobo Unavailable [phone] Rain Encounters Encounter Location Date Provider Diagnosis [address] [address] 10/28/2024 Terri Jacobo Plan Of Treatment Next Appt Details Provider Name:Terri ernandez, 08/09/2025 01:00:00 PM, [address] [place] [address], [phone], Progress Notes * Dannie FITZGERALDOB: 6 (70 yo F)Acc No.[id number]:10/28/2024 Progress Note Patient: Shaila MORGANVIRY Magy Provider: Socorro Jacobo DPM :1955 A ge:69 Y S ex:Female Date:10/28/2024 Address:[address] [place] [address] [address], [place], [place] Pcp:Jesus Hernandez Subjective: * Chief Complaints: * [address] Rain. * Medical History: Objective: * Vitals: Assessment: Plan: * Treatment: * Images: * The named appointment provid er may or may not be the originator of this progress note, and it is not deemed complete until electronically signed by the appointment provider. Sign off status: Pending * Provider: Socorro Jacobo, ZACK Date: 0 10/28/2024 Generated for Janessa perez/Wade/Jamee on: 1 07/03/2024 10:30 PM EST
--- OUTSIDE RECORDS SUMMARY | 2025-04-27 23:59 | XMS_ITS | Continuity of Care Document ---
Author Organization [facility] Address [address] [place] [address]- Care Team Providers Care Forensic Investigator Name Role Phone Ap GODDARD, Bernadette Garcia Primary Care Physician Encounter [facility] Date(s): 03/28/25 - 04/27/25 [facility] [address] [place], [place] [address] Encounter Type: Triage Allergies, Adverse Reactions, Alerts Substance Criticality Severity Reaction Reaction Severity Status penicillin RASH Active pregabalin Active gabapentin Blacks Out Active Immunizations Given and Recorded Vaccine Date Status Refusal Reason SARS-CoV-2 (COVID-19) mRNA BNT-162b2 vac 05/06/21 Recorded SARS-CoV-2 (COVID-19) mRNA BNT-162b2 vac 04/15/21 Recorded pneumococcal 23-valent vaccine 02/28/21 Recorded Medications acetaminophen 325 mg oral tablet 650 mg, By Mouth, Every 6 hours, PRN, Refills 0, Maintenance, Pain , Moderate, 09/28/24 8:46:00 AM EDT, Partial fill upon patient request if the prescription is for a schedule II opioid drug. Start Date: 09/28/24 Status: Ordered Medication Dispense Status: Completed Total Allowed Fills: 1 Fills Dispensed: 0 amLODIPine 5 mg oral tablet 5 mg, 1, tablet, By Mouth, Daily, # 30 tablet, Refills 0, Maintenance, 01/25/21 1:02:00 PM EDT, Partial fill upon patient request if the prescription is for a schedule II opioid drug. Start Date: 01/25/21 Status: Ordered Medication Dispense Status: Completed Quantity: 30.0 Unit: tablet Total Allowed Fills: 1 Fills Dispensed: 0 apixaban 5 mg oral tablet 1 tablet = 5 mg, By Mouth, 2 times a day, # 60 tablet, 3 Refills, Maintenance, 11/22/24 3:45:00 PM EDT, [facility]/pharmacy #[id number], Partial fill upon patient request if the prescription is for a schedule II opioid drug., 157.5, cm, 10/25/24 11:43:00 EDT, Height, 61.7, kg, 09/26/24 1:05:00 EDT, Dry Weight Start Date: 11/22/24 Stop Date: 03/22/25 Status: Ordered Medication Dispense Status: Completed Quantity: 60.0 Unit: tablet Total Allowed Fills: 4 Fills Dispensed: 0 Indications: Peripheral vascular disease, unspecified; Aspirin Low Dose 81 mg oral delayed release tablet 1 tablet, By Mouth, Daily, # 90 tablet, 1 Refills, Maintenance, 10/31/24 8:01:00 AM EDT, [facility], 157.5, cm, 10/25/24 11:43:00 EDT, Height, 61.7, kg, 09/26/24 1:05:00 EDT, Dry Weight Start Date: 10/31/24 Status: Ordered Medication Dispense Status: Completed Quantity: 90.0 Unit: tablet Total Allowed Fills: 1 Fills Dispensed: 0 atorvastatin 40 mg oral tablet 1 tablet = 40 mg, By Mouth, Daily, # 30 tablet, 0 Refills, Maintenance, Tablet Start Date: 04/09/18 Status: Ordered Medication Dispense Status: Completed Quantity: 30.0 Unit: tablet Total Allowed Fills: 1 Fills Dispensed: 0 biotin 5 mg oral capsule 1 capsule = 5 mg, By Mouth, Daily, # 30 capsule, 0 Refills, Maintenance, 04/11/25 3:50:00 PM EDT, Capsule, Partial fill upon patient request if the prescription is for a schedule II opioid drug. Start Date: 04/11/25 Status: Ordered Medication Dispense Status: Completed Quantity: 30.0 Unit: capsule Total Allowed Fills: 1 Fills Dispensed: 0 Creon 24,000 units oral delayed release capsule TAKE 2 CAPSULES BY MOUTH 2 TIMES A DAY FOR 30 DAYS Start Date: 04/11/25 Status: Ordered Medication Dispense Status: Completed Total Allowed Fills: 1 Fills Dispensed: 0 duloxetine 60 mg oral enteric coated capsule = 60 mg, By Mouth, Daily, do not crush or chew, # 30 capsule, 0 Refills, Maintenance, 10/28/24 8:46:00 AM EDT, Capsule, [facility]/pharmacy #[id number], Partial fill upon patient request if the prescription is fora schedule II opioid drug., 157.5, cm, 10/25/24 11:43:00 EDT, Height, 61.7, kg, 09/26/24 1:05:00 EDT, Dry Weight Start Date: 10/28/24 Stop Date: 11/27/24 Status: Ordered Medication Dispense Status: Completed Quantity: 30.0 Unit: capsule Total Allowed Fills: 1 Fills Dispensed: 0 Indications: Other specified postprocedural states; escitalopram 20 mg oral tablet 1 tablet = 20 mg, By Mouth, Daily, # 30 tablet, 0 Refills, Maintenance, 04/11/25 3:44:00 PM EDT, Tablet, Partial fill upon patient request if the prescription is for a schedule II opioid drug. Start Date: 04/11/25 Status: Ordered Medication Dispense Status: Completed Quantity: 30.0 Unit: tablet Total Allowed Fills: 1 Fills Dispensed: 0 famotidine 20 mg oral tablet 20 mg, 1, tablet, By Mouth, 2 times a day, # 180 tablet, Refills 0, Maintenance, 04/11/25 3:50:00 PM EDT, Partial fill upon patient request if the prescription is for a schedule II opioid drug. Start Date: 04/11/25 Status: Ordered Medication Dispense Status: Completed Quantity: 180.0 Unit: tablet Total Allowed Fills: 1 Fills Dispensed: 0 Lantus Solostar Pen 100 units/mL subcutaneous solution 15 mL, 0 Refill(s), INJECT 12 UNIT (0.12 ML) SUBCUTANEOUSLY BEDTIME FOR 30 DAYS, 0 Refills, :06:00 PM EDT, Partial fill upon patient request if the prescription is for a schedule II opioid drug. Start Date: 09/11/23 Status: Ordered Medication Dispense Status: Completed Total Allowed Fills: 1 Fills Dispensed: 0 levothyroxine 125 mcg (0.125 mg) oral tablet 1 tablet = 125 mcg, By Mouth, Daily, # 30 tablet, 0 Refills, Maintenance, 04/11/25 3:45:00 PM EDT, Tablet, Partial fill upon patient request if the prescription is for a schedule II opioid drug. Start Date: 04/11/25 Status: Ordered Medication Dispense Status: Completed Quantity: 30.0 Unit: tablet Total Allowed Fills: 1 Fills Dispensed: 0 metFORMIN 1000 mg oral tablet, extended release 1 tablet = 1,000 mg, By Mouth, 2 times a day, with evening meal, # 30 tablet, 0 Refills, Maintenance, 04/09/18 3:05:21 PM EDT, ER Tablet Start Date: 04/09/18 Status: Ordered Medication Dispense Status: Completed Quantity: 30.0 Unit: tablet Total Allowed Fills: 1 Fills Dispensed: 0 methocarbamol 500 mg oral tablet = 750 mg, By Mouth, Daily at bedtime, 0 Refills, Maintenance, 09/28/24 9:06:00 AM EDT, Tablet, Partial fill upon patient request if the prescription is for a schedule II opioid drug. Start Date: 09/28/24 Status: Ordered Medication Dispense Status: Completed Total Allowed Fills: 1 Fills Dispensed: 0 Metoprolol Succinate ER 25 mg oral tablet, extended release 90 each, 0 Refill(s), TAKE 1 TABLET BY MOUTH DAILY, 0 Refills, 09/11/23 1:06:00 PM EDT, Partial fillupon patient request if the prescription is for a schedule II opioid drug. Start Date: 09/11/23 Status: Ordered Medication Dispense Status: Completed Total Allowed Fills: 1 Fills Dispensed: 0 mycophenolate mofetil 500 mg oral tablet 1 tablet = 500 mg, By Mouth, 3 times a day, 0 Refills, Maintenance, 07/23/24 3:54:00 PM EST, Tablet, Partial fill upon patient request if the prescription is for a schedule II opioid drug. Start Date: 07/23/24 Status: Ordered Medication Dispense Status: Completed Total Allowed Fills: 1 Fills Dispensed: 0 Myrbetriq 25 mg oral tablet, extended release 90 each, 0 Refill(s), TAKE 1 TABLET BY MOUTH EVERY DAY, 0 Refills, 09/11/23 1:06:00 PM EDT, Partial fill upon patient request if the prescription is for a schedule II opioid drug. Start Date: 09/11/23 Status: Ordered Medication Dispense Status: Completed Total Allowed Fills: 1 Fills Dispensed: 0 ondansetron 4 mg oral tablet, disintegrating 1 tablet = 4 mg, By Mouth, Every 8 hours, PRN Nausea & Vomiting, # 15 tablet, 0 Refills, Maintenance, 08/11/24 1:16:00 AM EST, Tablet, [facility]/pharmacy #[id number], Partial fill upon patient request if the prescription is for a schedule II opioid drug., 158, cm, 08/04/24 12:35:00 EST, Height, 56.5, kg, 07/26/24 12:22:00 EST, Dry Weight Start Date: 08/11/24 Status: Ordered Medication Dispense Status: Completed Quantity: 15.0 Unit: tablet Total Allowed Fills: 1 Fills Dispensed: 0 potassium citrate 10 mEq oral tablet TAKE 1 TABLET BY MOUTH IN THE MORNING AND EVENING WITH MEALS DO NOT CRUSH/CHEW/SPLIT Start Date: 04/11/25 Status: Ordered Medication Dispense Status: Completed Total Allowed Fills: 1 Fills Dispensed: 0 pyridostigmine 60 mg oral tablet 180 mg, 3, tablet, 3 times a day, 180mg three times a day, 07/23/24 3:45:00 PM EST Start Date: 07/23/24 Status: Ordered Medication Dispense Status: Completed Total Allowed Fills: 1 Fills Dispensed: 0 traZODone 150 mg oral tablet TAKE 1 TAB BY MOUTH EVERY NIGHT AT BEDTIME MAY REPEAT UP TO 1X/NIGHT NEEDED FOR AWAKENING Start Date: 04/11/25 Status: Ordered Medication Dispense Status: Completed Total Allowed Fills: 1 Fills Dispensed: 0 Vitamin D2 2000 intl units oral capsule 1 capsule = 50 mcg, By Mouth, Daily, with food, # 60 capsule, 0 Refills, Maintenance, 04/11/25 3:49:00 PM EDT, Capsule, Partial fill upon patient request if the prescription is for a schedule II opioid drug. Start Date: 04/11/25 Status: Ordered Medication Dispense Status: Completed Quantity: 60.0 Unit: capsule Total Allowed Fills: 1 Fills Dispensed: 0 Problem List Condition Confirmation Course Effective Dates Status H ealth Status Informant CVA (cerebrovascular accident) Confirmed Active Chronic low back pain Confirmed Active Critical limb ischemia of left lower extremity Confirmed Active Diabetes Confirmed Active Ureteral stone with hydronephrosis Confirmed Active Hypercalcemia Confirmed Active Hyperlipidemia Confirmed Active Hypertension Confirmed Active Hypothyroid Confirmed Active Myasthenia gravis Confirmed Active Pelvic mass Confirmed Active Pernicious anemia Confirmed Active Tubular adenoma of colon Confirmed Active Urge urinary incontinence Confirmed Active Vitamin D deficiency Confirmed Active Social History Social History Type Response Sexual Sexually involved in last 6 months: No. Smoking Status Former smoker, quit more than 30 days ago entered on: 05/10/24 Sex Sex Representation Female (finding) Patient Care team information Care Team Personnel Name: Marily Chand NP Position: [facility] PCO Associate Professional Member Role: Lifetime Consulting Provider Name: Ap GODDARD , Bernadette Garcia Position: Reference Physician Member Role: PCP Address: [address] [place] [address]- Telecom: Name: Guillermo Flannery RN Position: [facility] RN Member Role: Primary Care Nurse Name: Huong Seymour RN Position: S RN Member Role: Primary Care Nurse Name: Osmin Gore RN Position: S RN Member Role: Primary Care Nurse Name: Karen Ferreira RN Position: [facility] RN Member Role: Primary Care Nurse Name: Taylor Pham RN Position: [facility] RN Member Role: Primary Care Nurse Name: Peggy Lozada RN Position: S RN Member Role: Primary Care Nurse Name: Matthew Casiano Position: [facility] Outreach Member Role: Lifetime Consulting Physician Name: Misael Mcneill MD Position: [facility] Renal MD Member Role: Lifetime Consulting Physician Address: [address] [facility] [address] [facility] [place] [address]- Telecom: Name: Belia Henriquez RN Position: [facility] RN Member Role: Primary Care Nurse Name: Cecilia Valdez RN Position: [facility] RN Member Role: Primary Care Nurse Care Team Related Persons Name: HERNANDO TOSCANO Name: LIVE HEWITT Insurance Providers Guarantor name: [facility] [employer] [facility] Information #: 1 Payer: [facility] Payer Identifier: NA Member Number: [id number] Group Number: [id number] Subscriber Identifier: NA Relationship to Subscriber: self Coverage Type: Medicare Managed Care (Includes Medicare Advantage Plans) Coverage Verification Date: NA Telecom: NA Address:
--- OUTSIDE RECORDS SUMMARY | 2025-04-28 23:59 | XMS_ITS | Continuity of Care Document ---
Author Organization [facility] Address [address] [place] [address]- Care Team Providers Care Power System Electrical Engineer Name Role Phone Ap GODDARD, Bernadette Garcia Primary Care Physician Encounter [facility] Date(s): 03/29/25 - 04/28/25 [facility] [address] [place] [address]- Encounter Type: Triage Allergies, Adverse Reactions, Alerts [...] 3 Refills, Maintenance, 11/22/24 3:45:00 PM EDT, [facility]/pharmacy #[id number], Partial fill upon patient request if [...] Maintenance, 10/31/24 8:01:00 AM EDT, [facility], 157.5, cm, 10/25/24 11:43:00 EDT, Height, 61.7, [...] Refills, Maintenance, 10/28/24 8:46:00 AM EDT, Capsule, [facility]/pharmacy #[id number], Partial fill upon patient request if [...] Refills, Maintenance, 08/11/24 1:16:00 AM EST, Tablet, [id number], Partial fill upon patient request if [...] Team Personnel Name: Marily Chand NP Position: [facility] PCO Associate Professional Member Role: Lifetime Consulting Provider Name: Ap GODDARD , Bernadette Garcia Position: Reference Physician Member Role: PCP Address: [address] [place] [address]- Telecom: Name: Guillermo Flannery RN Position: [facility] RN Member Role: Primary Care Nurse Name: Huong Seymour RN Position: [facility] RN Member Role: Primary Care Nurse Name: Osmin Gore RN Position: [facility] RN Member Role: Primary Care Nurse Name: Karen Ferreira RN Position: [facility] RN Member Role: Primary Care Nurse Name: Taylor Pham RN Position: [facility] RN Member Role: Primary Care Nurse Name: Peggy Lozada RN Position: [facility] RN Member Role: Primary Care Nurse Name: Matthew Casiano Position: [facility] Outreach Member Role: Lifetime Consulting Physician Name: Misael Mcneill MD Position: [facility] Renal MD Member Role: Lifetime Consulting Physician Address: [address] [facility] [address] [facility] [place] [address]- Telecom: Name: Belia Henriquez RN Position: [facility] RN Member Role: Primary Care Nurse Name: Cecilia Valdez RN Position: [facility] RN Member Role: Primary Care Nurse Care Team Related Persons Name: HERNANDO TOSCANO Name: LIVE HEWITT Insurance Providers Guarantor name: [employer] [facility] Information #: 1 Payer: [facility] Payer Identifier: NA Member Number: [id number] Group Number: [id number] Subscriber Identifier: NA Relationship to Subscriber: self Coverage Type: Medicare Managed Care (Includes Medicare Advantage Plans) Coverage Verification Date: NA Telecom: NA Address: NA
--- OUTSIDE RECORDS SUMMARY | 2025-05-02 09:30 | XMS_ITS ---
Author Organization [facility] Address [address] [place] [address] Care Team Providers Care Sales Performance Manager Name Role Phone Ap GODDARD, Bernadette Lyman Primary Care Provider Un available Terri Jacobo Unavailable [phone] Allergies Allergen (clinical drug ingredient) Drug/Non Drug [...] a day; Duration: 30 day(s) Active pyRIDostigmine [employer] ER 180 MG 1 tablet Orally Once [...] 025 Encounters Encounter Location Date Provider Diagnosis [facility] [address] [address] 05/02/2025 Terri Jacobo Atherosclerosis of artery of [...] Reason: Provider Name:Terri ernandez, 08/09/2025 01:00:00 PM, [address] [place] [address], [phone], Procedure Notes * Category Sub-Category Detail Notes [...] use of a nail nipper and/or dremel-type backside grinder, to a more viable healthy nail [...] to maintain effectiveness in symptomatic relief - 21036 Keratoma Treatment Parring or Cutting o f [...] instrumentation by the physician of record - 98827 Progress Notes * Dannie FITZGERALDOB: 6 (70 yo F)Acc No.[id number]:05/02/2025 Progress Note Patient: Magy GUTHRIE Provider: Socorro Jacobo DPM :1955 A ge:70 Y S ex:Female Date:05/02/2025 Address:[address] [place], [place] [address] Pcp:Jesus Hernandez Subjective: * Chief Complaints: * [...] dmits. C ardiovascular: Pacemaker d enies. M COMMERCIAL MORTGAGE BROKER d enies. W PW d enies. C [...] no. Marital status: single. 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 D rug/Alcohol: A CHRIS-C (Standard) D id [...] 1 capsule Orally Once a day pyRIDostigmine [employer] ER 180 MG Tablet Extended Release 1 [...] capsule Orally Once a day Taking pyRIDostigmine [employer] ER 180 MG Tablet Extended Release 1 [...] an absence of tested sensitivity to 5.07 [place] monofilament at 2 or more sites out [...] of a nail nipper and/or dremel- type backside grinder, to a more viable healthy nail [...] to maintain effectiveness in symptomatic relief - 88170. K eratoma Treatment: Parring or Cutting of [...] instrumentation by the physician of record - 02736. * Procedure Codes: 1 1057 TRIM SKIN LESIONS, OVER 4, Modifiers: XS 74217 DEBRIDE NAIL, 6 OR MORE, Modifiers: XS [...] Date: 07/02/2024 Generated for Janessa perez/Wade/Jamee on: 07/03/2024 10:31 PM EST History and Physical Notes * [...] an absence of tested sensitivity to 5.07 [place] monofilament at 2 or more sites out [...]
--- OUTSIDE RECORDS SUMMARY | 2025-05-03 22:30 | XMS_ITS | Encounter Summary ---
Author Organization [facility] Address [address] [facility] 200 [place] [address] Phone Care Team Providers Care Container Packer Operator Name Role Phone Sabas De Souza MD Primary Care Provider +1- [phone] Encounter Details Date Type Department Care Team (Late Contact Info) Description 10/31/2021 Documentation Only [facility] [address] [facility] [address] [place] [address] Misael Mcneill MD [address] [address] Social History Tobacco Use Types [...] Visit [facility] [address] [place] [phone] [place] [address] [address] documented as of this encounter Visit Diagnoses Not on filedocumented in this encounter Care Teams Container Packer Operator Relationship Specialty Start Date End Date Sabas De Souza MD PCP - General Internal Medicine 12/24/20 documented as of this encounter
--- OUTSIDE RECORDS SUMMARY | 2025-05-03 22:30 | XMS_ITS | Clinical Summary ---
Author Organization [facility] Address [address] [place] [address] [place] [address] Phone Care Team Providers Care Plow Holder Name Role Phone Sabas De Souza MD Primary Care Provider +1- [phone] Allergies Active Allergy Reactions Criticality Noted Date [...] 90 tablet 3 03/07/20 24 025 Discontinued Active Problems Problem Noted Date [...] 04/05/2025 [facility] [address] [place] [address] Misael Mcneill MD 03/23/2025 Refill [facility] [place] [address] [facility] [address] [place] [address] Ambrosio Brewer MD from Last 3 Months [...] Visit [facility] [address] [place] [address] Misael Mcneill MD [address] [facility] [address] [place] [address] Health Maintenance Due Date Last [...] Most Recently Relevant to Health Maintenance Insurance [facility] Healthnet [facility] ([id number]) [facility] ([id number]) Care Teams Plow Holder Relationship Specialty Start Date End Date Sabas De Souza MD PCP - General Internal Medicine 12/24/20
--- OUTSIDE RECORDS SUMMARY | 2025-05-03 22:30 | XMS_ITS | Patient Health Record ---
Author Organization [facility] Address [address] [facility] [place] [address] Care Team Providers Care Supervisor Industrial Garment Name Role Phone Ap GODDARD, Bernadette Lyman Primary Care Provider Un available Onealoma Terri Unavailable [phone] Allergies Allergen (clinical drug ingredient) Drug/Non Drug Allergy documented on EMR Reaction Allergy Type Onset Date Status Influenza A (H1N1) Monoval PF Unknown Drug Allergy Active gabapentin Gabapentin Unknown Drug Allergy Activ e Penicillin Unknown Drug Allergy Active Results Component Value Reference Range Notes HEMOGLOBIN A1C (GLYCOHEMOGLO BIN) Reviewed date:12/30/2024 11:18:36 AM Interpretation: Performing Lab: Notes/Report: HEMOGLOBIN A1C (HH) 7.4 HEMOGLOBIN A1C (GLYCOHEMOGLO BIN) Reviewed date:05/02/2025 02:26:31 PM Interpretation: Performing Lab: Notes/Report: HEMOGLOBIN A1C % (HH) 7.5 Reason For Referral No Information Medications Medication SIG (Take, Route, Frequency, Duration) Notes Start Date End Date Status metFORMIN HCl 1000 MG 1 tablet with a meal Orally Once a day; Duration: 30 day(s) Active Bactrim DS 800-160 MG 1 tablet Orally every 12 hrs; Duration: 10 day(s) 06/03/2023 Not-Taking Atorvastatin Calcium 80 MG 1 tablet Orally Once a day; Duration: 30 day(s) Not-Taking amLODIPine Besylate 5 MG 1 tablet Orally Once a day; Duration: 30 day(s) Active Bactrim 09/22/22 from Urgent care Not-Taking Levothyroxine Sodium 137 MCG 1 tablet [...] Lesion(s) (L85.1); Duration: 365 days 12/28/2024 Active Cholecalciferol 25 MCG (1000 UT) 1 capsule Orally Once a day; Duration: 30 day(s) Active Meloxicam 15 MG as directed Orally Once a day; Duration: 25 days from urgent care Active pyRIDostigmine [place] ER 180 MG 1 tablet Orally Once [...] (M20.41,M20.42), Preulcerative Skin Lesion(s) (L85.1 09/16/2022 Active Bactrim DS 800-160 MG 1 tablet Orally every 12 hrs; Duration: 5 days 09/16/2022 Not-Taking Extra Depth Orthopedic Shoes (1 Pair) with Customized Heat Molded Multidensity Innersoles (3 Pair) as directed Add filler left shoe _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 Dx: NIDDM/Polyneuropath y (E11.42), Hammertoe Foot Deformity (M20.41,M20.42), Preulcerative Skin Lesion(s) (L85.1 07/02/2022 Active Ciclopirox Olamine 0.77 % 1 application to affected area Externally to feet Twice a day; Duration: 30 days Not-Taking oxyBUTYnin Chloride 5 MG 1 tablet Orally Twice a day; Duration: 30 day(s) Active Clotrimazole-Betamethason e 1-0.05 % APPLY TO AFFECTED AREA ON FEET TWICE A DAY; Duration: 30 Active Potassium Active Metoprolol Succinate ER 25 MG Oral; Duration: 90 Active Immunizations Vaccine Route Administration Date Status Comme [...] Polyneuropathy due to type 2 diabetes mellitus (097450905) Type 2 diabetes mellitus with polyneuropathy (E11.42) Active confirmed Problem Bilateral atherosclerosis of arteries of lower limbs (disorder) (96919703030283409 ) Atherosclerosis of artery of both lower extremities (I70.203) Active confirmed Vital Signs Blood pressure diastolic 80 mm Hg 05/02/2025 Height 5ft1in in 05/02/2025 Blood pressure systolic 128 mm Hg 05/02/2025 Weight 160 lbs 05/02/2025 BMI 30.23 kg/m2 05/02/2025 Encounters Encounter Location Date Provider Diagnosis [address] [address] 12/28/2024 Terri Jacobo Atherosclerosis of artery of both lower extremities I70.203 ; Other hammer toe(s) (acquired), left foot M20.42 ; Type 2 diabetes mellitus with polyneuropathy E11.42 and Other hammer toe(s) (acquired), right foot M20.[address] [address] 05/02/2025 Terri Jacobo Atherosclerosis of artery of both lower extremities I70.203 ; Type 2 diabetes mellitus with polyneuropathy E11.42 ; Tinea pedis B35.3 and Tinea unguium B35.[address] [address] 07/05/2024 Terri Jacobo [address] [address] 12/28/2024 Terri Jacobo Assessments Encounter Date Diagnosis (ICD Code) Assessment Notes Treatment Notes Treatment Clinical Notes Section Notes 12/28/2024 Other hammer toe(s) (acquired), left foot (ICD-10 - M20.42) 12/28/2024 Atherosclerosis of artery of both lower extremities (ICD-10 - I70.203) 05/02/2025 Type 2 diabetes mellitus with polyneuropathy (ICD-10 - E11.42) 05/02/2025 Atherosclerosis of artery of both lower extremities (ICD-10 - I70.203) 05/02/2025 Tinea pedis (ICD-10 - B35.3) 12/28/2024 Type 2 diabetes mellitus with polyneuropathy (ICD-10 - E11.42) 12/28/2024 Other hammer toe(s) (acquired), right foot (ICD-10 - M20.41) Patient Educated with: DIABETIC FOOT CARE INSTRUCTIONS. pdf (DIABETIC FOOT CARE INSTRUCTIONS. pdf) 05/02/2025 Tinea unguium (ICD-10 - B35.1) 05/02/2025 Other Plan Of Treatment Next Appt Details Provider Name:Terri ernandez, 08/09/2025 01:00:00 PM, [address] [facility], [place], [address], Insurance Providers Payer Name Payer Address Payer Phone Subscriber Number Group Number Insured Name Patient Relationship to Insured Coverage Start Date Coverage End Date [facility] CCA SCO Claims [address] [place] [address] [id number] Magy Trejo Self - patient is the [...] with Dr Carmona 07/16/23 blood clot 07/09 cyst on kidney removed 05/09 Hospitalization History Reason Date(Month/Year) blood clot 07/09
--- OUTSIDE RECORDS SUMMARY | 2025-05-03 22:31 | XMS_ITS | Encounter Summary ---
Author Organization [facility] Address [address] [facility] 200 [place] [address] Phone Care Team Providers Care Tape Calender Name Role Phone Sabas De Souza MD Primary Care Provider +1- [phone] Encounter Details Date Type Department Care Team ([facility] Contact Info) Description 12/03/2020 Orders Only [facility] [address] [place] [address] Misael Mcneill MD [address] [facility] [address] [place] [address] Persistent proteinuria; Type 2 diabetes mellitus with [...] Upcoming Encounters Date Type Department Care Team ([facility] Contact Info) Description 10/19/2025 2:15 PM EDT Office Visit [facility] [address] [place] [address] Misael Mcneill MD [address] [address] documented as of this encounter Visit Diagnoses Diagnosis Persistent proteinuria Type 2 diabetes mellitus with diabetic chronic kidney disease (HCC) Hypertensive disorder documented in this encounter Care Teams Tape Calender Relationship Specialty Start Date End Date Sabas De Souza MD PCP - General Internal Medicine 12/24/20 documented as of this encounter
--- OUTSIDE RECORDS SUMMARY | 2025-05-03 22:31 | XMS_ITS | Clinical Summary ---
Author Organization [facility] Address [address] [facility] [address] [place] [address] Phone Care Team Providers Care Engraved Roller Inspector Name Role Phone Unknown, Unknown Primary [...] file Medical Devices Not on file Insurance [facility] MEDIC[facility] REPLACEMENT [facility] MED[facility] REPLACEMENT Care Teams Engraved Roller Inspector Relationship Specialty Start Date End Date Unknown, Unknown, PCP - General 06/12/23 Additional Source Comments The information contained in this document represents components of the legal health record. It is not the complete legal health record.[facility]
--- OUTSIDE RECORDS SUMMARY | 2025-05-03 22:31 | XMS_ITS | Encounter Summary ---
Author Organization [facility] Address [address] [facility] 200 [place] [address] Phone Care Team Providers Care Wastewater Plant Civil Engineer Name Role Phone Sabas De Souza MD Primary Care Provider +1- [phone] Encounter Details Date Type Department Care Team (Late Contact Info) Description 10/28/2021 Telephone [facility] [address] [facility] 200 [place] [address] Misael Mcneill MD [address] [facility] [address] [place] [address] Social History Tobacco Use Types Packs/Day Years [...] speak with you. She was at the [facility] ER and was told she has kidney stones. She would like to speak with you about this. Please call her back at [phone] Thank you documented in this encounter Plan of Treatment Upcoming Encounters Date Type Department Care Team (Late st Contact Info) Description 10/19/2025 2:15 PM EDT Office Visit [facility] [address] [place] [address] Misael Mcneill MD [address] [facility] [address] [place] [address] documented as of this encounter Visit Diagnoses Not on filedocumented in this encounter Care Teams Wastewater Plant Civil Engineer Relationship Specialty Start Date End Date Sabas De Souza MD PCP - General Internal Medicine 12/24/20 documented as of this encounter
--- OUTSIDE RECORDS SUMMARY | 2025-05-03 22:31 | XMS_ITS | Data Portability ---
Author Organization [address] [employer] Address [address] [place] [address] Care Team Providers Care Diesel Engine Mechanic Apprentice Name Role Phone [facility] Referring Provider Assessment Encounter Date Assessment Date Assessment LastModified by Organization Details LastModified Time 01/13/2022 01/13/2022 I have reviewed and agree with the assessment and plan as documented by the falafel cart cook. I provided real-time medical direction for this [...] Note 3085 Itzel Mott MD [facility] [employer] [address] [place] [address] 01/13/2022 20:36:58 02/19/2022 12:51:59 Chronic deep venous thrombosis of lower extremity [id number] 55166 I82.509 Health Concerns Section Related Observation LastModified by Organization Detai ls LastModified Time None Recorded Concern Status LastModified by Organization Details LastModified Time None Recorded Advance Directives Directive None Recorded Payers Insurance Date Sequence Insurance Name Policy Number Policy Nicolas Covered Member ID Nicolas Member ID Guarantor Name 08/17/2023 1 [facility] - DOS PRIOR TO 2022 - DUAL ELIGIBLE (MEDICARE REPLACEMENT/AD VANTAGE - HMO) Magy Fitzgerald [id number] Magy Fitzgerald 08/17/2023 1 [facility] [employer] - DOS ON OR AFTER 2022 - DUAL ELIGIBLE - FPC OPTIONS AND ONE CARE (MEDICARE REPLACEMENT/AD VANTAGE - HMO) Magy Fitzgerald [id number] Magy Fitzgerald Notes Date Note Type Note Provider Name and Address Organization Details Recorded Time 01/13/2022 text/html [facility] Nursing Assessment: Chief Complaints: Pain PMH: Diabetes Allergies: Unknown Comments: REPORTER ANCHOR concern for eval L foot pain and 5th toe discoloration increased pain this week decline ED at this time deny fevers await surgery poor historian Itzel Mott MD [address] [facility],[address], [place], [address], [employer] 01/13/2022 20:48:35 OBGyn Episode No OBEpisode recorded.
== END 2025-05-03 11:26 | disposition home or self-care (01) ==
LOC: HO.MAMMO 11:25
PROVIDERS: PCP Internal Medicine; Visit Provider Internal Medicine
DX: Z12.31 Encounter for screening mammogram for malignant neoplasm of breast (principal)
CPT/HCPCS: 77063; 77067

== ENCOUNTER → 2025-05-03 11:30 | Outpatient (BNV) | payer OTHER, SELFPAY | PROVIDERS: PCP Internal Medicine; Visit Provider Radiology Body Imaging | DX: Z12.31 Encounter for screening mammogram for malignant neoplasm of breast (principal) | CPT/HCPCS: 77063; 77067 ==

== ENCOUNTER 2025-05-04 07:54 | Outpatient (REF) | payer OTHER, SELFPAY ==
--- OUTSIDE RECORDS SUMMARY | 2023-11-03 08:30 | XMS_ITS ---
Author Organization [facility] Address [address] [place] [address] Care Team Providers Care Blood Tester Fowl Name Role Phone Ap GODDARD, Bernadette Lyman Primary Care Provider Un available Terri Jacobo [phone] Encounters Encounter Location Date Provider Diagnosis [address] [address] 11/03/2023 Terri Jacobo Plan Of Treatment Next Appt Details Provider Name:Terri ernandez, 08/09/2025 01:00:00 PM, [address] [place] [address], [phone], Progress Notes * Dannie FITZGERALDOB: (70 yo F)Acc No.[id number]:11/03/2023 Progress Note Patient: Arnol GUTHRIEba Provider: Socorro Jacobo DPM :1955 A ge:68 Y S ex:Female Date:11/03/2023 Address:[address] [place] [address] [address], [place] Pcp:Jesus Hernandez Subjective: * Chief Complaints: * [...] 11/03/2023 Generated for Janessa perez/Wade/Jamee on: 1 07/04/2024 08:07 AM EST
--- OUTSIDE RECORDS SUMMARY | 2024-03-22 06:15 | XMS_ITS ---
Author Organization [facility] Address [address] [place] [address] Care Team Providers Care Chemical Detection Expert Name Role Phone Ap GODDARD, Bernadette Lyman Primary Care Provider Un available Terri Jacobo Unavailable [phone] Encounters Encounter Location Date Provider Diagnosis [address] [address] 03/22/2024 Terri Jacobo Plan Of Treatment Next Appt Details Provider Name:Terri ernandez, 08/09/2025 01:00:00 PM, [address] [place] [address], [phone], Progress Notes * Dannie FITZGERALDOB: (70 yo F)Acc No.[id number]:03/22/2024 Progress Note Patient: Arnol GUTHRIE[facility] Provider: Socorro Jacobo DPM :1955 A ge:69 Y S ex:Female Date:03/22/2024 Address:[address] [place] [address] [address], [place], [place] Pcp:Jesus Hernandez Subjective: * Chief Complaints: * * Medical History: Objective: * Vitals: Assessment: Plan: * Treatment: * Images: * The named appointment provid er may or may not be the originator of this progress note, and it is not deemed complete until electronically signed by the appointment provider. Sign off status: Pending * Provider: Socorro Jacobo DPM Date: Generated for Janessa perez/Wade/Jamee on: 07/04/2024 08:07 AM EST
--- OUTSIDE RECORDS SUMMARY | 2024-05-10 10:15 | XMS_ITS ---
Author Organization [facility] Address [address] [place] [address] Care Team Providers Care Claims Configuration Analyst Name Role Phone Ap GODDARD, Bernadette Lyman Primary Care Provider Un available Terri Jacobo Unavailable [phone] Encounters Encounter Location Date Provider Diagnosis [address] [address] 05/10/2024 Terri Jacobo Plan Of Treatment Next Appt Details Provider Name:Terri ernandez, 08/09/2025 01:00:00 PM, [address] [place] [address], [address], Progress Notes * Dannie FITZGERALDOB: (70 yo F)Acc No.[id number]:05/10/2024 Progress Note Patient: Arnol GUTHRIEba Provider: Socorro Jacobo DPM :1955 A ge:69 Y S ex:Female Date:05/10/2024 Address:[address] [place] [address] [address], [place], [place] Pcp:Jesus Hernandez Subjective: * Chief Complaints: * [...] Date: 07/10/2023 Generated for Janessa perez/Wade/Jamee on: 07/04/2024 08:08 AM EST
--- OUTSIDE RECORDS SUMMARY | 2024-07-05 11:00 | XMS_ITS ---
Author Organization [facility] Address [address] [facility] [place] [address] Care Team Providers Care Program Manager Rn Name Role Phone Ap GODDARD, Bernadette Lyman Primary Care Provider Un available Terri Jacobo Unavailable [phone] Medications Medication SIG (Take, Route, Frequency, Duration) [...] a day; Duration: 30 day(s) Active pyRIDostigmine [place] ER 180 MG 1 tablet Orally Once a day; Duration: 30 day(s) Active Cholecalciferol 25 MCG (1000 UT) 1 capsule Orally Once a day; Duration: 30 day(s) Active oxyBUTYnin Chloride 5 MG 1 tablet Orally Twice a day; Duration: 30 day(s) Active Potassium Active Encounters Encounter Location Date Provider Diagnosis [facility] [address] [address] 07/05/2024 Terri Jacobo Plan Of Treatment Next Appt Details Provider Name:Terri ernandez, 08/09/2025 01:00:00 PM, [address] [place] [address], [address], Progress Notes * Dannie FITZGERALDOB: 6 (70 yo F)Acc No.[id number]:07/05/2024 Progress Note Patient: Arnol GUTHRIEba Provider: Socorro Jacobo DPM :1955 A ge:69 Y S ex:Female Date:07/05/2024 Address:[address] [place], [place] [address] Pcp:Jesus Hernandez Subjective: * Chief Complaints: * [...] Orally Once a day , Taking pyRIDostigmine [place] ER 180 MG Tablet Extended Release 1 [...] 0 07/05/2024 Generated for Janessa perez/Wade/Jamee on: 07/04/2024 08:07 AM EST History and Physical Notes * HPI (History of Present Illness) Category Sub-Category Detail Notes Category Not es At Risk footcare Pt States Last PCP Visit: Date: 4
--- OUTSIDE RECORDS SUMMARY | 2024-10-28 07:45 | XMS_ITS ---
Author Organization [facility] Address [address] [place] [address] Care Team Providers Care Apparatus Repair Mechanic Name Role Phone Ap GODDARD, Bernadette Lyman Primary Care Provider Un available Terri Jacobo Unavailable [phone] Rain Encounters Encounter Location Date Provider Diagnosis [address] [address] 10/28/2024 Terri Jacobo Plan Of Treatment Next Appt Details Provider Name:Terri ernandez, 08/09/2025 01:00:00 PM, [address] [place] [address], [address], Progress Notes * Dannie FITZGERALDOB: 6 (70 yo F)Acc No.[id number]:10/28/2024 Progress Note Patient: Shaila MORGANVIRY Magy Provider: Socorro Jacobo DPM :1955 A ge:69 Y S ex:Female Date:10/28/2024 Address:[address] [place] [address] [address], [place] Pcp:Jesus Hernandez Subjective: * Chief Complaints: * [...] 0 10/28/2024 Generated for Janessa perez/Wade/Jamee on: 07/04/2024 08:07 AM EST
--- OUTSIDE RECORDS SUMMARY | 2025-05-02 09:30 | XMS_ITS ---
[facility] Address [address] [facility] [place] [address] Care Team Providers Care Customer Experience Intern Name Role Phone Ap GODDARD, Bernadette Lyman Primary Care Provider Un available Terri Jacobo Unavailable [phone] Allergies Allergen (clinical drug ingredient) Drug/Non Drug Allergy documented on EMR Reaction Allergy Type Onset Date Status Influenza A (H1N1) Monoval PF Unknown Drug Allergy Active gabapentin Gabapentin Unknown Drug Allergy Activ e Penicillin Unknown Drug Allergy Active REASON FOR VISIT At Risk Footcare, Skin problem(s) Medications Medication SIG (Take, Route, Frequency, Duration) Notes Start Date End Date Status Bactrim DS 800-160 MG 1 tablet Orally every 12 hrs; Duration: 5 days 09/16/2022 Not-Taking Ciclopirox Olamine 0.77 % 1 application to affected area Externally to feet Twice a day; Duration: 30 days Not-Taking Bactrim DS 800-160 MG 1 tablet Orally every 12 hrs; Duration: 10 day(s) 06/03/2023 Not-Taking Bactrim 09/22/22 from Urgent care Not-Taking oxyCODONE ER Not-Darshan ing Extra Depth Orthopedic Shoes (1 Pair) with Customized Heat Molded Multidensity Innersoles (3 Pair) Dx: NIDDM/Polyneuropath y (E11.42), Hammertoe Foot Deformity (M20.41,M20.42), Preulcerative Skin Lesion(s) (L85.1); Duration: 365 days 12/28/2024 Active Meloxicam 15 MG as directed Orally Once a day; Duration: 25 days from urgent care Active hydroCHLOROthiazide 25 MG 1 tablet in th e morning Orally Once a day; Duration: 30 day(s) Not-Taking Clotrimazole-Betamethason e 1-0.05 % APPLY TO AFFECTED AREA ON FEET TWICE A DAY; Duration: 30 Active Atorvastatin Calcium 80 MG 1 tablet Orally Once a day; Duration: 30 day(s) Not-Taking Extra Depth Orthopedic Shoes (1 Pair) [...] (M20.41,M20.42), Preulcerative Skin Lesion(s) (L85.1 07/02/2022 Active Metoprolol Succinate ER 25 MG Oral; Duration: 90 Active amLODIPine Besylate 5 MG 1 tablet [...] a day; Duration: 30 day(s) Active pyRIDostigmine Galt ER 180 MG 1 tablet Orally Once a day; Duration: 30 day(s) Active Ramipril 10 MG 1 capsule Orally Once a day; Duration: 30 day(s) Active metFORMIN HCl 1000 MG 1 tablet with a meal Orally Once a day; Duration: 30 day(s) Active oxyBUTYnin Chloride 5 MG 1 tablet Orally Twice a day; Duration: 30 day(s) Active Potassium Active Social History Tobacco Use: Social History Observation [...] ast year? No Points 0 Interpretation Negative Vital Signs Height 5ft1in in 05/02/2025 Weight 160 lbs 05/02/2025 BMI 30.23 kg/m2 05/02/2025 Blood pressure systolic 128 mm Hg 05/02/20 25 Blood pressure diastolic 80 mm Hg 025 Encounters Encounter Location Date Provider Diagnosis [facility] [address] [address] 05/02/2025 Terri Jacobo Atherosclerosis of artery of both lower extremities I70.203 ; Type 2 diabetes mellitus with polyneuropathy E11.42 ; Tinea pedis B35.3 and Tinea unguium B35.1 Assessments Encounter Date Diagnosis (ICD Code) Assessment Notes Treatment Notes Treatment Clinical Notes Section Notes 05/02/2025 Atherosclerosis of artery of both lower extremities (ICD-10 - I70.203) 05/02/2025 Type 2 diabetes mellitus with polyneuropathy (ICD-10 - E11.42) 05/02/2025 Tinea pedis (ICD-10 - B35.3) 05/02/2025 Tinea unguium (ICD-10 - B35.1) 05/02/2025 Other Plan Of Treatment Next Appt Details Follow Up: 3 Months, Reason: Provider Name:Terri ernandez, 08/09/2025 01:00:00 PM, [address] [place] [address], [phone], Procedure Notes * Category Sub-Category Detail Notes Debride Nail 6-10 Nail debridement Due to the cl inical pathology outlined in the exam findings, performance of this nail treatment is medically necessary as its management by an unskilled/untrained nonprofessional would put this patients foot and overall health at risk. Therefore, debridement to affected nail(s), as described in exam ( TA, T1, T2, T3, T5, T6, T7, T8, T9, ), was performed exclusively by the physician of record to reduce/remove overall nail length, girth, thickness, subungual debris, and necrotic tissue, by manual and/or electrical means through the use of a nail nipper and/or dremel-type stand grinder, to a more viable healthy nail plate or bed tissue 6-10 nails in total. Silver nitrate was used for any petechial bleeding as necessary. Definitive antifungal treatment options, both pharmaceutical and surgical, have been reviewed and discussed with the patient. The patient solely prefers the use of intermittent/as needed professional debridement services for their nail condition and understands the need for additional periodic treatments to maintain effectiveness in symptomatic relief - 11342 Keratoma Treatment Parring or Cutting o f Benign Hyperkeratotic Lesion(s) (-57) More than 4 Lesions - Due to the at risk nature of the patients medical condition as documented in the exam findings, performance of this keratoderma treatment is medically necessary as its management by an unskilled/untrained nonprofessional would put this patients foot and overall health at risk. Therefore, the benign hyperkeratotic lesions, (7) in total, locations as stated and described in the exam ( amputation site left 5th, Plantar, IPJ, TA, T5, SUB MTH (s), 1,5 Right, , Plantar Heel(s), B/L ), were pared, and/or cut utilizing a sterile 15 blade, tissue nippers, and/or power dremel instrumentation by the physician of record - [id number] Progress Notes * Dannie FITZGERALDOB: [birth year] (70 yo F)Acc No.[id number]:05/02/2025 Progress Note Patient: Magy GUTHRIE Provider: Socorro Jacobo DPM :1955 A ge:70 Y S ex:Female Date:05/02/2025 Address:[address] [place], [place] [id number] Pcp:Jesus Hernandez Subjective: * Chief Complaints: * A t Risk FootcareSkin problem(s) * HPI: A t Risk footcare: Pt States Last PCP Visit: D ate 0 03/07/2025 S kin problems: Nature: d ryness. Location: B /L. Treatments: M edication (Ciclopirox Olamine 0.77 Cream).? * ROS: G eneral/Constitutional: Nausea d enies. V omiting d enies. H anny Thirst a dmits. L oss appetite d enies. C hills d enies. F atigue d enies.?Fever d enies. N ight Sweats a dmits. U nexplained weight loss a dmits. U nexplained weight gain d enies. H EENTM: Dentures d enies. D izziness d enies. G lasses/contacts a dmits. R etinopathy d enies. B lurred/double vision d enies. T MJ?denies. D ischarge/drainage d enies. I mplants d enies. S ore throat d enies. D ental implants d enies. H cyndy of hearing d enies. D ifficulty chewing/swallowing/speaking a dmits. N ose bleeds d enies. S ore mouth d enies. ? R espiratory: On Oxygen d enies. P neumonia/pleurisy d enies.?Bronchitis d enies. E mphysema d enies. C oughing d enies. C ough blood?denies. S hortness of breath d enies. W heezing a dmits. C ardiovascular: Pacemaker d enies. M BATTERY TESTER AND REPAIRER d enies. W PW d enies. C HF d enies. H eart attack d enies. S eptal defect d enies. R apid beat d enies. C hest pain d enies. A trial Fib. d enies. M urmur/Palpitations d enies. G astrointestinal: Hemorrhoids a dmits. S tomach/Abdominal pain d enies. D ark blood stool d enies. I rritable bowel d enies. C onstipation d enies. D iarrhea d enies. H ematology: Swelling d enies. C lots d enies. V aricose Veins d enies. B ruising d enies. B leeding problem d enies. G enitourinary: Blood urine d enies. F requent/Painfu/urination/bladder control d enies. K idney stones a dmits. I nfection (UTI) d enies. N ephropathy d enies. s ex trans dis (STD) d enies. P rostate d enies. M usculoskeletal: Hammertoes d enies. B unions d enies. B ack Pain a dmits. M uscle Cramps/ Resting a dmits. M uscle cramps / walking a dmits.?Generalized aches and pains d enies. W eakness d enies. I nteg.: [place] d enies. S cars d enies. C orns/calluses?denies. I ngrown nails d enies. P ainful nails d enies. O pen Sores d enies. R ashes d enies. N eurologic: Difficulty sleeping d enies. B rain disorder d enies. N umbness a dmits. B alance trouble d enies. C onfusion d enies. F ainting/blackouts d enies. T ingling d enies. T remors d enies. * Medical History: * Surgical History: t oe removal 01/26/22cataract surgery Hernia Repair hysterectomy Lithotripsy parathyroidectomy Amputation of pinky toe 04/05LL revascularization with Dr Carmona 11/2022Hip Surgery - Mass on left side 05/29/23RLE stenting with Dr Carmona 07/16/23blood clot 07/09cyst on kidney removed 05/09 * Hospitalization/Major Diagno stic Procedure: b lood clot 07/09 * Family History: M other: , stroke, foot problems, diagnosed with Diabetic - NIDDM, Unspecified essential hypertension, Family history of arthritis. F ather: . * Social History: T obacco Use: T obacco use other than smoking A re you an other tobacco user? N o Tobacco Control (Standard) T obacco use: N onsmoker A dditional Findings: Tobacco non-user C urrent nonsmoker M iscellaneous: C affeine: yes, 1-2 cups per day. Children: yes, 3. Exercise: no. Marital status: single. 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 D rug/Alcohol: A CHRIS-C (Standard) D id you have a drink containing alcohol in the past year? N o P oints 0 I nterpretation N egative * Medications: T akingPotassium oxyBUTYnin Chloride 5 MG Tablet 1 tablet Orally Twice a day Cholecalciferol 25 MCG (1000 UT) Capsule 1 capsule Orally Once a day Rosuvastatin Calcium 40 MG Tablet 1 tablet Orally Once a day Ramipril 10 MG Capsule 1 capsule Orally Once a day pyRIDostigmine Galt ER 180 MG Tablet Extended Release 1 tablet Orally Once a day metFORMIN HCl 1000 MG Tablet 1 tablet with a meal Orally Once a day Levothyroxine Sodium 137 MCG Tablet 1 tablet in the morning on an empty stomach Orally Once a day amLODIPine Besylate 5 MG Tablet 1 tablet Orally Once a day Extra Depth Orthopedic Shoes (1 Pair) with Customized Heat Molded Multidensity Innersoles (3 Pair) as directed Add filler left shoe _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 Dx: NIDDM/Polyneuropathy (E11.42), Hammertoe Foot Deformity (M20.41,M20.42), Preulcerative Skin Lesion(s) (L85.1 Extra Depth Orthopedic Shoes (1 Pair) with Customized Heat Molded Multidensity Innersoles (3 Pair) as directed Dx: NIDDM/Polyneuropathy (E11.42), Hammertoe Foot Deformity (M20.41,M20.42), Preulcerative Skin Lesion(s) (L85.1 Metoprolol Succinate ER 25 MG Tablet Extended Release 24 Hour Oral Clotrimazole-Betamethasone 1-0.05 % Cream APPLY TO AFFECTED AREA ON FEET TWICE A DAY Meloxicam 15 MG Tablet as directed Orally Once a day , Notes to Pharmacist: from urgent careExtra Depth Orthopedic Shoes (1 Pair) with Customized Heat Molded Multidensity Innersoles (3 Pair) Dx: NIDDM/Polyneuropathy (E11.42), Hammertoe Foot Deformity (M20.41,M20.42), Preulcerative Skin Lesion(s) (L85.1) Taking Potassium Taking oxyBUTYnin Chloride 5 MG Tablet 1 tablet Orally Twice a day Taking Cholecalciferol 25 MCG (1000 UT) Capsule 1 capsule Orally Once a day Taking Rosuvastatin Calcium 40 MG Tablet 1 tablet Orally Once a day Taking Ramipril 10 MG Capsule 1 capsule Orally Once a day Taking pyRIDostigmine Galt ER 180 MG Tablet Extended Release 1 tablet Orally Once a day Taking metFORMIN HCl 1000 MG Tablet 1 tablet with a meal Orally Once a day Taking Levothyroxine Sodium 137 MCG Tablet 1 tablet in the morning on an empty stomach Orally Once a day Taking amLODIPine Besylate 5 MG Tablet 1 tablet Orally Once a day Taking Extra Depth Orthopedic Shoes (1 Pair) with Customized Heat Molded Multidensity Innersoles (3 Pair) as directed Add filler left shoe _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 Dx: NIDDM/Polyneuropathy (E11.42), Hammertoe Foot Deformity (M20.41,M20.42), Preulcerative Skin Lesion(s) (L85.1 Taking Extra Depth Orthopedic Shoes (1 Pair) with Customized Heat Molded Multidensity Innersoles (3 Pair) as directed Dx: NIDDM/Polyneuropathy (E11.42), Hammertoe Foot Deformity (M20.41,M20.42), Preulcerative Skin Lesion(s) (L85.1 Taking Metoprolol Succinate ER 25 MG Tablet Extended Release 24 Hour Oral Taking Clotrimazole-Betamethasone 1-0.05 % Cream APPLY TO AFFECTED AREA ON FEET TWICE A DAY Taking Meloxicam 15 MG Tablet as directed Orally Once a day , Notes to Pharmacist: from urgent careTaking Extra Depth Orthopedic Shoes (1 Pair) with Customized Heat Molded Multidensity Innersoles (3 Pair) Dx: NIDDM/Polyneuropathy (E11.42), Hammertoe Foot Deformity (M20.41,M20.42), Preulcerative Skin Lesion(s) (L85.1) Not-Taking/PRNhydroCHLOROthiazide 25 MG Tablet 1 tablet in the morning Orally Once a day Atorvastatin Calcium 80 MG Tablet 1 tablet Orally Once a day Bactrim DS 800- 160 MG Tablet 1 tablet Orally every 12 hrs oxyCODONE ER Bactrim , Notes to Pharmacist: 09/22/22 from Urgent careCijose roberto Olamine 0.77 % Cream 1 application to affected area Externally to feet Twice a day Bactrim DS 800-160 MG Tablet 1 tablet Orally every 12 hrs Medication List reviewed and reconciled with the patientNot- Taking/PRN hydroCHLOROthiazide 25 MG Tablet 1 tablet in the morning Orally Once a day Not-Taking/PRN Atorvastatin Calcium 80 MG Tablet 1 tablet Orally Once a day Not-Taking/PRN Bactrim DS 800-160 MG Tablet 1 tablet Orally every 12 hrs Not-Taking/PRN oxyCODONE ER Not-Taking/PRN Bactrim , Notes to Pharmacist: 09/22/22 from Urgent careNot-Taking/PRN Ciclopirox Olamine 0.77 % Cream 1 application to affected area Externally to feet Twice a day Not-Taking/PRN Bactrim DS 800-160 MG Tablet 1 tablet Orally every 12 hrs Medication List reviewed and reconciled with the patient * Allergies: P enicillinGabapentinInfluenza A (H1N1) Monoval PF: Allergyyes[Allergies Verified] Objective: * Vitals: H t: 5ft1in, Wt:160, BMI:30.23, Shoe size: 7, BP:128/80mm Hg, BS: 134, Ht-cm: 154.94 cm, Wt-k.58 kg. * P ast Orders: L ab:HEMOGLOBIN A1C (GLYCOHEMOGLOBIN) (Order Date - 12/28/2024) (Collection Date & Time - 12/27/2024 11:18 AM) Value Reference Range HEMOGLOBIN A1C (HH) 7.4 * Examination: D ermatologic: SKIN FINDINGS: S kin exam reveals Keratotic lesion(s) located at amputation site left 5th, Plantar, IPJ, TA, T5, SUB MTH (s), 1,5 Right, , Plantar Heel(s), B/L, Skin shows sign(s) of, erythema, scaling, in a moccasin fashion, no fissure(s) present, B/L. ? N eurological: SENSORY: ( Neuro) Neurological exam demonstrates a loss of protective sensation by an absence of tested sensitivity to 5.07 Marked Tree-Sheree monofilament at 2 or more sites out of 5 total locations, each foot. O rthopedic: MUSCLE STRENGTH: 5 /5 all groups in a symmetrical fashion , B/L. FOOT MORPHOLOGY: ( -) Charcot collapse/destruction noted at [facility]. DIGITAL DEFORMITIES: D igital contracture, PIPJ, 2-4 left, 2-5 right, incompl-reducable to push-up test, no over, nor underlapping, , Amputation T4 ,there is?evidence of shoe producing skin irritation. FOOTWEAR EVALUATION: w orn, non-supportive, shoe gear properties exacerbate patients complaints in relation to their foot/toe deformity. G eneral Examination: GENERAL APPEARANCE: R eveals a pleasant, alert, well nourished, well developed, well hydrated individual, who demonstrates proper attention to hygene/body habitus, and is in no acute distress. ORIENTED: p erson, place, and time. FOOT EXAM: L ower Extremity Neurological Exam performed:?Yes V isual exam of foot performed: Quincy Buitrago ate 1 07/02/2024 Footwear Evaluation F ootwear Evaluation performed: Y piero V ascular: DP PULSES (B): 1 /4, B/L. PT PULSES (B): 0 /4, B/L. CAPILLARY FILL TIME: 4 secs. per digit, B/L. TROPHIC CONDITION-TEXTURE/ELASTICITY/TURGOR/HAIR GROWTH (B):?decreased, with sparse to absent hair growth, B/L. TEMPERTURE GRADIENT (C): n ormal, warm to cool, proximal to distal, B/L. EDEMA (C): 1 /4, pitting, Foot/Feet, Ankle(s),, Leg(s), Left. O phthalmology Referral: DIABETES EYE EXAM P rocedure Performed: Quincy Buitrago ate of Exam Performed 0 11/23/2024 F indings of Diabetic Eye Exam: n o retinopathy N ails: NAILS are: E longated, overgrown, dystrophic, lytic, greater than 3mm thick, discolored and friable with crumbly malodorous subungual debris, with pain on palpation, TA, T1, T2, T3, T5, T6, T7, T8, T9. Assessment: * Assessment: 1. T ype 2 diabetes mellitus with polyneuropathy - E11.42 (Primary) 2 . A therosclerosis of artery of both lower extremities - I70.203 3 . T inea pedis - B35.3 S pecify :Chronic problem, Stable (1=3,2=4) 4 . T inea unguium - B35.1 Plan: * Treatment: * Procedures: D ebride Nail 6-10: Nail debridement D ue to the clinical pathology outlined in the exam findings, performance of this nail treatment is medically necessary as its management by an unskilled/untrained nonprofessional would put this patients foot and overall health at risk. Therefore, debridement to affected nail(s), as described in exam ( TA, T1, T2, T3, T5, T6, T7, T8, T9, ), was performed exclusively by the physician of record to reduce/remove overall nail length, girth, thickness, subungual debris, and necrotic tissue, by manual and/or electrical means through the use of a nail nipper and/or dremel- type stand grinder, to a more viable healthy nail plate or bed tissue 6-10 nails in total. Silver nitrate was used for any petechial bleeding as necessary. Definitive antifungal treatment options, both pharmaceutical and surgical, have been reviewed and discussed with the patient. The patient solely prefers the use of intermittent/as needed professional debridement services for their nail condition and understands the need for additional periodic treatments to maintain effectiveness in symptomatic relief - [id number]. K eratoma Treatment: Parring or Cutting of Benign Hyperkeratotic Lesion(s) ( -57) More than 4 Lesions - Due to the at risk nature of the patients medical condition as documented in the exam findings, performance of this keratoderma treatment is medically necessary as its management by an unskilled/untrained nonprofessional would put this patients foot and overall health at risk. Therefore, the benign hyperkeratotic lesions, (7) in total, locations as stated and described in the exam ( a mputation site left 5th, P lantar, I PJ, T A, T 5, S UB MTH (s), 1 ,5 R ight, , P lantar Heel(s), B /L ) , were pared, and/or cut utilizing a sterile 15 blade, tissue nippers, and/or power dremel instrumentation by the physician of record - [id number]. * Procedure Codes: 1 1057 TRIM SKIN LESIONS, OVER 4, Modifiers: XS 99603 DEBRIDE NAIL, 6 OR MORE, Modifiers: XS * Preventive Medicine: Counseling: D iscussion: - 13: Office or other outpatient visit for the evaluation and management of an established patient, which required a medically appropriate history and/or examination and LOW level of DECISION MAKING for: 1 STABLE ACUTE UNCOMPLICATED PROBLEM, 2 OR MORE MINOR PROBLEMS, OR 1 STABLE CHRONIC PROBLEM, THAT POSE(S) A LOW RISK FOR MORBIDITY/MORTALITY. The visit on the day of the encounter encompassed interpreting the data and educating the patient as to the nature of their condition, treatment options available according to their individual PMH, meds, allergies, and overall health/living conditions, as well as any potential risks or complications that may occur from a failure to adhere to, and participate in, the recommended course of therapy. The discussion included a complete verbal, and/or written explanation of the examination results, any x-rays taken, the proposed diagnosis, and outline of the treatment plan. A schedule for future care needs was also explained. The patient verbalized an understanding of the instructions at this time and agreed to be an active participant in their treatment. If the patient should think of any questions or concerns after the visit, I have encouraged the patient to call the office. A t Risk Diabetic/ASO/PVD Footcare: T he patient was advised against future self nail/callus care due to inherent risks for infection, loss of limb/life given ( diabetes, neuropathy, peripheral vascular disease, ). T inea Pedis: T he patient was counseled on the diagnosis, potential etiologies, and treatment options for their skin condition. We discussed the risks and benefits of each option from performing no treatment, to utilizing OTC topical skin creams, prescription topical creams, customized compounded topical medications, and, if necessary, to utilize oral antifungal therapy. We discussed the advantages and disadvantages of each possible treatment and importance for adherence to all the recommended therapies for optimum success and avoid potential complications such as open sore/infection/possible hospitalization. We discussed the potential effectiveness of each topical preparation as well as each ones possible side effects and/or patient medication interactions if oral therapy is selected. Patient questions re: the advantages and disadvantages of each treatment choice, medication use/dosage, successful outcomes, and application consistency were reviewed and the patient verbalized that all answers were clearly understood. The patient was told they can help alleviate symptoms by utilizing moisture absorbant innersoles with activated charcoal and baking soda, applying antifungal sprays daily, aerating toe web spaces at night by putting cotton or lambs wool between the toes, alternating shoe gear daily if possible so they can dry out, changing socks at least once during the day, wearing well-ventilated shoes or sandals. Screening/Special Tests: F all Risk Screening: N o falls in the past year F ALLS: Screening for Future Fall Risk Have you had two or more falls in the past year? N o Have you had any falls with injury in the past year? N o * Follow Up: 3 Months * Images: * Sign off status: Completed true * Provider: Socorro Jacobo DPM Date: 07/02/2024 Generated for Janessa perez/Wade/Jamee on: 07/04/2024 08:08 AM EST History and Physical Notes * HPI (History of Present Illness) Category Sub-Category Detail Notes Category Not es Skin problems Nature: dryness Location: B/L Treatments: Medication (Ciclopir ox Olamine 0.77 Cream) At Risk footcare Pt States Last PCP Visit: Date: 5 Examination Category Sub-Category Detail Notes Category Not es Neurological SENSORY: (Neuro) Neurolog ical exam demonstrates a loss of protective sensation by an absence of tested sensitivity to 5.07 Marked Tree-Sheree monofilament at 2 or more sites out of 5 total locations, each foot Dermatologic SKIN FINDINGS: Skin exam reveal s Keratotic lesion(s) located at amputation site left 5th, Plantar, IPJ, TA, T5, SUB MTH (s), 1,5 Right, , Plantar Heel(s), B/L, Skin shows sign(s) of, erythema, scaling, in a moccasin fashion, no fissure(s) present, B/L Orthopedic FOOT MORPHOLOGY: (-) Charcot col lapse/destruction noted at MT[facility] FOOTWEAR EVALUATION: worn, non-supportiv e, shoe gear properties exacerbate patients complaints in relation to their foot/toe deformity DIGITAL DEFORMITIES: Digital contracture , PIPJ, 2-4 left, 2-5 right, incompl- reducable to push-up test, no over, nor underlapping, , Amputation T4 ,there is evidence of shoe producing skin irritation MUSCLE STRENGTH: 5/5 all groups in a symmetrical fashion , B/L General Examination GENERAL APPEARANCE: Reveals a pleasant, alert, well nourished, well developed, well hydrated individual, who demonstrates proper attention to hygene/body habitus, and is in no acute distress FOOT EXAM: Lower Extremity Neurological Exa m performed:: Yes Visual exam of foot performed:: Yes Date: 05/02/2025 ORIENTED: person, place, and t royer Footwear Evaluation Footwear Evaluation performe d:: Yes Ophthalmology Referral DIABETES EYE EXAM Procedure Perform ed:: Yes Date of Exam Performed: 11/23/2024 Findings of Diabetic Eye Exam:: no retin opathy Vascular DP PULSES (B): 1/4, B/L PT PULSES (B): 0/4, B/L CAPILLARY FILL TIME: 4 secs. per digit, B/L TEMPERTURE GRADIENT (C): normal, warm to cool, proximal to distal, B/L TROPHIC CONDITION-TEXTURE/ELASTICITY/TURGOR/HAIR GROWTH (B): decreased, with sparse to absent hair gr owth, B/L EDEMA (C): 1/4, pitting, Foot/F eet, Ankle(s),, Leg(s), Left Nails NAILS are: Elongated, overg rown, dystrophic, lytic, greater than 3mm thick, discolored and friable with crumbly malodorous subungual debris, with pain on palpation, TA, T1, T2, T3, T5, T6, T7, T8, T9
--- NOTE | ~2025-05-04 | CT_ITS ---
EXAMINATION: CT LUNG SCREENING HISTORY: Z87.891 - Personal history of nicotine dependence TECHNIQUE: Low dose axial images were obtained from the sternal notch to upper abdomen without IV contrast per standard departmental protocol. Sagittal and coronal reformatted images were also obtained and reviewed. One or more of the following techniques was used for dose reduction: Automated exposure control, adjustment of the mA and/or kV according to patient size, use of iterative reconstruction technique. DLP: 36 mGy-cm COMPARISON: Comparison is made with the prior examination dated 04/01/2024. FINDINGS: Lung nodules: There are scattered tiny calcified granulomas. There is a 4 mm nodule in the left lower lobe (series 13, image 76) without change. There is patchy airspace opacity in the left lower lobe suggestive of pneumonia (series 13, images 92-99). Emphysema: mild Coronary Calcification: severe Aortic Arch Calcification: mild Potentially Significant Incidentals : none Additional Chest Findings: There is no pleural or pericardial effusion. No mediastinal or axillary lymphadenopathy is identified. Visualized upper abdomen: The visualized portions of the liver, spleen, and adrenals have an unremarkable unenhanced appearance. CT/CT lung screening IMPRESSION: Stable 4 mm left lower lobe nodule. Patchy airspace opacity in the left lower lobe, suggestive of pneumonia. Follow-up low-dose chest CT is recommended in 1-3 months to document resolution. LUNG-RADS ASSESSMENT: Lung-RADS 3: Probably Benign MANAGEMENT: 1-3 month LDCT Category S: N/A Electronically signed by: Cristi Young MD 05/04/2025 09:26 AM EST
--- OUTSIDE RECORDS SUMMARY | 2025-05-04 08:07 | XMS_ITS | Clinical Summary ---
Author Organization [facility] Address [address] [place] [address] [place] [address] Phone Care Team Providers Care Outside Sales Account Representative Name Role Phone Sabas De Souza MD Primary Care Provider +1- [phone] Allergies Active Allergy Reactions Criticality Noted Date [...] 04/05/2025 Refill [facility] [address] [place] [address] Misael Mcneill MD 03/23/2025 Refill [facility] [place] [address] [facility] [address] [place] [address] Ambrosio Brewer MD from Last 3 Months [...] Visit [facility] [address] [place], [place] [address] Misael Mcneill MD [address] [facility] [address] [place] [address] Health Maintenance Due Date Last [...] Most Recently Relevant to Health Maintenance Insurance [facility] Healthnet [facility] ([id number]) [facility] ([id number]) Care Teams Outside Sales Account Representative Relationship Specialty Start Date End Date Sabas De Souza MD PCP - General Internal Medicine 12/24/20
--- OUTSIDE RECORDS SUMMARY | 2025-05-04 08:07 | XMS_ITS | Patient Health Record ---
Author Organization [facility] Address [address] [facility] [place] [address] Care Team Providers Care Weigh Boss Name Role Phone Ap GODDARD, Bernadette Lyman Primary Care Provider Un available [place] Terri Unavailable [phone] Allergies Allergen (clinical drug ingredient) Drug/Non Drug [...] 25 days from urgent care Active pyRIDostigmine [place] ER 180 MG 1 tablet Orally Once [...] Polyneuropathy due to type 2 diabetes mellitus (965508093) Type 2 diabetes mellitus with polyneuropathy (E11.42) Active confirmed Problem Bilateral atherosclerosis of arteries of lower limbs (disorder) (75181805407060035 ) Atherosclerosis of artery of both lower extremities (I70.203) Active confirmed Vital Signs Blood pressure diastolic 80 mm Hg 05/02/2025 Height 5ft1in in 05/02/2025 Blood pressure systolic 128 mm Hg 05/02/2025 Weight 160 lbs 05/02/2025 BMI 30.23 kg/m2 05/02/2025 Encounters Encounter Location Date Provider Diagnosis [address] [address] 12/28/2024 Terri Jacobo Atherosclerosis of artery of both lower extremities I70.203 ; Other hammer toe(s) (acquired), left foot M20.42 ; Type 2 diabetes mellitus with polyneuropathy E11.42 and Other hammer toe(s) (acquired), right foot M20.[address] [address] 05/02/2025 Terri Jacobo Atherosclerosis of artery of both lower extremities I70.203 ; Type 2 diabetes mellitus with polyneuropathy E11.42 ; Tinea pedis B35.3 and Tinea unguium B35.[address] [address] 07/05/2024 Terri Jacobo [address] [address] 12/28/2024 Terri Jacobo Assessments Encounter Date Diagnosis [...] Provider Name:Terri ernandez, 08/09/2025 01:00:00 PM, [address] [facility], [place], [address], Insurance Providers Payer Name Payer Address Payer Phone Subscriber Number Group Number Insured Name Patient Relationship to Insured Coverage Start Date Coverage End Date [facility] CCA SCO Claims [address] [place] [id number] Magy Trejo Self - patient is the [...]
--- OUTSIDE RECORDS SUMMARY | 2025-05-04 08:07 | XMS_ITS | Encounter Summary ---
Author Organization [facility] Address [address] [facility] 200 [place] [address] Phone Care Team Providers Care Workforce Management Manager Name Role Phone Sabas De Souza MD Primary Care Provider +1- [phone] Encounter Details Date Type Department Care Team (Late Contact Info) Description 10/31/2021 Documentation Only [facility] [address] [facility] [address] [place] [address] Misael Mcneill MD [address] [address] Social History Tobacco Use Types [...] [facility] [address] [place] [address] Misael Mcneill MD [address] [address] documented as of this encounter Visit Diagnoses Not on filedocumented in this encounter Care Teams Workforce Management Manager Relationship Specialty Start Date End Date Sabas De Souza MD PCP - General Internal Medicine 12/24/20 documented as of this encounter
--- OUTSIDE RECORDS SUMMARY | 2025-05-04 08:08 | XMS_ITS | Encounter Summary ---
Author Organization [facility] Address [address] [facility] 200 [place] [address] Phone Care Team Providers Care Weapons Officer Name Role Phone Sabas De Souza MD Primary Care Provider +1- [phone] Encounter Details Date Type Department Care Team (Late Contact Info) Description 10/28/2021 Telephone [facility] [address] [facility] [address] [place] [address] Misael Mcneill MD [address] [facility] [address] [place] [address] Social History Tobacco Use Types Packs/Day Years [...] speak with you. She was at the [place] ER and was told she has kidney stones. She would like to speak with you about this. Please call her back at [phone] Thank you documented in this encounter Plan of Treatment Upcoming Encounters Date Type Department Care Team (Late st Contact Info) Description 10/19/2025 2:15 PM EDT Office Visit [facility] [address] [place] [address] Misael Mcneill MD [address] [facility] [address] [place] [address] documented as of this encounter Visit Diagnoses Not on filedocumented in this encounter Care Teams Weapons Officer Relationship Specialty Start Date End Date Sabas De Souza MD PCP - General Internal Medicine 12/24/20 documented as of this encounter
--- OUTSIDE RECORDS SUMMARY | 2025-05-04 08:08 | XMS_ITS | Clinical Summary ---
Author Organization [facility] Address [address] [facility] [address] [place] [address] Phone Care Team Providers Care Stone Lathe Operator Name Role Phone Unknown, Unknown Primary Care [...] [facility] Care Teams Stone Lathe Operator Relationship Specialty Start Date End Date Unknown, Unknown, PCP - General 06/12/23 Additional Source Comments The information contained in this document represents components of the legal health record. It is not the complete legal health record.[facility]
--- OUTSIDE RECORDS SUMMARY | 2025-05-04 08:08 | XMS_ITS | Encounter Summary ---
Author Organization [facility] Address [address] [facility] [address] [place] [address] Phone Care Team Providers Care Jewelry Cutter Name Role Phone Sabas De Souza MD Primary Care Provider +1- [phone] Encounter Details Date Type Department Care Team ([facility] Contact Info) Description 12/03/2020 Orders Only [facility] [address] [place] [address] Misael Mcneill MD 3[address] [facility] [address] [place] [address] Persistent proteinuria; Type 2 diabetes mellitus with [...] Care Team ([facility] Contact Info) Description 10/19/2025 2:15 PM EDT Office Visit [facility] [address] [place] [address] Misael Mcneill MD [address] [address] documented as of this encounter Visit Diagnoses Diagnosis Persistent proteinuria Type 2 diabetes mellitus with diabetic chronic kidney disease (HCC) Hypertensive disorder documented in this encounter Care Teams Jewelry Cutter Relationship Specialty Start Date End Date Sabas De Souza MD PCP - General Internal Medicine 12/24/20 documented as of this encounter
== END 2025-05-04 07:55 | disposition home or self-care (01) ==
LOC: HO.HMGCX 07:54
PROVIDERS: PCP Internal Medicine; Visit Provider Student in an Organized Health Care Education/Training Program
DX: Z87.891 Personal history of nicotine dependence (principal)
CPT/HCPCS: 71271

== ENCOUNTER → 2025-05-04 07:57 | Outpatient (BNV) | payer OTHER, SELFPAY | PROVIDERS: PCP Internal Medicine; Visit Provider Radiology Diagnostic Radiology | DX: Z12.2 Encounter for screening for malignant neoplasm of respiratory organs (principal); Z87.891 Personal history of nicotine dependence; R91.1 Solitary pulmonary nodule | CPT/HCPCS: 71271 ==

== ENCOUNTER 2025-05-10 12:11 | Outpatient (AMB) | payer OTHER, SELFPAY ==
--- OUTSIDE RECORDS SUMMARY | 2025-05-05 23:59 | XMS_ITS | Continuity of Care Document ---
Author Organization [facility] Address [address] [place] [address]- Care Team Providers Care Ag Service Manager Name Role Phone Ap GODDARD, Bernadette Garcia Primary Care Physician Encounter [facility] Date(s): 04/05/25 - 05/05/25 [facility] [address] [place], [place] [address] Encounter Type: Triage Allergies, Adverse Reactions, [...] 3 Refills, Maintenance, 11/22/24 3:45:00 PM EDT, [facility]/pharmacy #[id number], Partial fill upon patient request if [...] Maintenance, 10/31/24 8:01:00 AM EDT, [id number], 157.5, cm, 10/25/24 11:43:00 EDT, Height, 61.7, [...] Refills, Maintenance, 10/28/24 8:46:00 AM EDT, Capsule, [facility]/pharmacy #[id number], Partial fill upon patient request if [...] Refills, Maintenance, 08/11/24 1:16:00 AM EST, Tablet, [facility]/pharmacy #[id number], Partial fill upon patient request if [...] Team Personnel Name: Marily Chand NP Position: [facility] Associate Professional Member Role: Lifetime Consulting Provider Name: Ap GODDARD , Bernadette Garcia Position: Reference Physician Member Role: PCP Address: [address] [place] [address]- Telecom: Name: Guillermo Flannery RN Position: [facility] RN Member Role: Primary Care Nurse Name: Huong Seymour RN Position: S RN Member Role: Primary Care Nurse Name: Osmin Gore RN Position: S RN Member Role: Primary Care Nurse Name: Karen Ferreira RN Position: [facility] RN Member Role: Primary Care Nurse Name: Taylor Pham RN Position: [facility] RN Member Role: Primary Care Nurse Name: Peggy Lozada RN Position: S RN Member Role: Primary Care Nurse Name: Matthew Casiano Position: [facility] Outreach Member Role: Lifetime Consulting Physician Name: Misael Mcneill MD Position: [facility] Renal MD Member Role: Lifetime Consulting Physician Address: [address] [facility] [address] [facility] [place] [address]- Telecom: Name: Belia Henriquez RN Position: [facility] RN Member Role: Primary Care Nurse Name: Cecilia Valdez RN Position: [facility] RN Member Role: Primary Care Nurse Care Team Related Persons Name: HERNANDO TOSCANO Name: LIVE HEWITT Insurance Providers Guarantor name: [facility] Information #: 1 P[facility] Payer Identifier: NA Member Number: [id number] Group Number: [id number] Subscriber Identifier: NA Relationship to Subscriber: self Coverage Type: Medicare Managed Care (Includes Medicare Advantage Plans) Coverage Verification Date: NA Telecom: NA Address:
--- OUTSIDE RECORDS SUMMARY | 2025-05-05 23:59 | XMS_ITS | Continuity of Care Document ---
Author Organization [facility] Address [address] [place] [address]- Care Team Providers Care Print Production Coordinator Name Role Phone Ap GODDARD, Bernadette Garcia Primary Care Physician Encounter [facility] Date(s): 04/05/25 - 05/05/25 [facility] [address] [place], [place] [address] Encounter Type: Triage Allergies, Adverse [...] Refills, Maintenance, 11/22/24 3:45:00 PM EDT, [facility]/pharmacy #[id number], Partial fill upon patient request if [...] Maintenance, 10/31/24 8:01:00 AM EDT, [facility], 157.5, cm, 10/25/24 11:43:00 EDT, Height, 61.7, [...] Maintenance, 10/28/24 8:46:00 AM EDT, Capsule, [facility]/pharmacy #[id number], Partial fill upon patient request if [...] Maintenance, 08/11/24 1:16:00 AM EST, Tablet, [facility]/pharmacy #[id number], Partial fill upon patient request if [...] Team Personnel Name: Marily Chand NP Position: [facility] Associate Professional Member Role: Lifetime Consulting Provider Name: Ap GODDARD , Bernadette Garcia Position: Reference Physician Member Role: PCP Address: [address] [place] [address]- Telecom: Name: Guillermo Flannery RN Position: [facility] RN Member Role: Primary Care Nurse Name: Huong Seymour RN Position: S RN Member Role: Primary Care Nurse Name: Osmin Gore RN Position: S RN Member Role: Primary Care Nurse Name: Karen Ferreira RN Position: [facility] RN Member Role: Primary Care Nurse Name: Taylor Pham RN Position: [facility] RN Member Role: Primary Care Nurse Name: Peggy Lozada RN Position: S RN Member Role: Primary Care Nurse Name: Matthew Casiano Position: [facility] Outreach Member Role: Lifetime Consulting Physician Name: Misael Mcneill MD Position: [facility] Renal MD Member Role: Lifetime Consulting Physician Address: [address] [facility] [address] [facility] [place] [address]- Telecom: Name: Belia Henriquez RN Position: [facility] RN Member Role: Primary Care Nurse Name: Cecilia Valedz RN Position: [facility] RN Member Role: Primary Care Nurse Care Team Related Persons Name: HERNANDO TOSCANO Name: LIVE HEWITT Insurance Providers Guarantor name: [facility] [employer] [facility] Information #: 1 Payer: [facility] Payer Identifier: NA Member Number: [id number] Group Number: [id number] Subscriber Identifier: NA Relationship to Subscriber: self Coverage Type: Medicare Managed Care (Includes Medicare Advantage Plans) Coverage Verification Date: NA Telecom: NA Address:
--- OUTSIDE RECORDS SUMMARY | 2025-05-05 23:59 | XMS_ITS | Continuity of Care Document ---
Author Organization [facility] Address [address] [place] [address]- Care Team Providers Care Upper Tier Name Role Phone Ap GODDARD, Bernadette Garcia Primary Care Physician Encounter [facility] Date(s): 04/05/25 - 05/05/25 [facility] [address] [place], [place] [address] Encounter Type: Triage Allergies, Adverse Reactions, [...] Maintenance, 11/22/24 3:45:00 PM EDT, [facility]/pharmacy #[id number], Partial fill upon patient request if [...] Maintenance, 10/31/24 8:01:00 AM EDT, [facility], 157.5, cm, 10/25/24 11:43:00 EDT, Height, 61.7, [...] 10/28/24 8:46:00 AM EDT, Capsule, [facility]/pharmacy #[id number], Partial fill upon patient request if [...] Refills, Maintenance, 08/11/24 1:16:00 AM EST, Tablet, [facility]/pharmacy #[id number], Partial fill upon patient request if [...] Team Personnel Name: Marily Chand NP Position: [facility] Associate Professional Member Role: Lifetime Consulting Provider Name: Ap GODDARD , Bernadette Garcia Position: Reference Physician Member Role: PCP Address: [address] [place] [address]- Telecom: Name: Guillermo Flannery RN Position: [facility] RN Member Role: Primary Care Nurse Name: Huong Seymour RN Position: S RN Member Role: Primary Care Nurse Name: Osmin Gore RN Position: S RN Member Role: Primary Care Nurse Name: Karen Ferreira RN Position: [facility] RN Member Role: Primary Care Nurse Name: Taylor Pham RN Position: [facility] RN Member Role: Primary Care Nurse Name: Peggy Lozada RN Position: S RN Member Role: Primary Care Nurse Name: Matthew Casiano Position: [facility] Outreach Member Role: Lifetime Consulting Physician Name: Misael Mcneill MD Position: [facility] Renal MD Member Role: Lifetime Consulting Physician Address: [address] [facility] [address] [facility] [place] [address]- Telecom: Name: Belia Henriquez RN Position: [facility] RN Member Role: Primary Care Nurse Name: Cecilia Valdez RN Position: [facility] RN Member Role: Primary Care Nurse Care Team Related Persons Name: HERNANDO TOSCANO Name: LIVE HEWITT Insurance Providers Guarantor name: [facility] Information #: 1 P[facility] Payer Identifier: NA Member Number: [id number] Group Number: [id number] Subscriber Identifier: NA Relationship to Subscriber: self Coverage Type: Medicare Managed Care (Includes Medicare Advantage Plans) Coverage Verification Date: NA Telecom: NA Address:
--- NOTE | 2025-05-10 12:31 | A.OFFVIS_ITS ---
Vital Signs 05/10/25 12:32 Height 5 ft 1 in Weight 145 lb 8.081 oz BMI 27.5 BP 168/84 H Blood Pressure Location Rt brachial Position Sitting Pulse 76 Pulse Source Pulse Oximeter Pulse Oximetry (%) 96 Oxygen Delivery Method Room Air Intake Visit Reasons: DM/thyroid nodules/hypothyroidism Intake Note: Patient presents today for a follow-up on Type 2 Diabetes Mellitus Thyroid Nodules Hypothyroidism: Thyroid US Scheduled on 05/04/2025. Labs Completed. Last Diabetic eye exam was on: 11/2024, [facility] Last Podiatry exam was on: 12/28/2024, [facility] Most recent HbA1c: 7.6%, 03/17/2025 Random Glucose: 190 mg/dL Clinical Biostatistician Required: No Accompanied by: Self / Same As Patient Allergies Penicillins (PCN) Allergy (Unknown, Verified 05/10/25 12:33) RASH pregabalin (From Lyrica) Adverse Reaction (Severe, Verified 05/10/25 12:33) skin peeling gabapentin Adverse Reaction (Unknown, Verified 05/10/25 12:33) Dizziness Medication List - Last Reconciled 05/10/25 by Yeset Latasha Mak MD albuterol sulfate 90 mcg/actuation (ProAir HFA) 2 puffs inhalation Q6H PRN amlodipine 5 mg PO BID apixaban 5 mg PO DAILY aspirin 81 mg PO DAILY azithromycin For 250 mg dose pack: take 500 mg today (day 1), then 250 mg for 4 days (days 2-5) PO [bed rail As directed NS] blood pressure test kit-medium As directed to monitor blood pressure blood sugar diagnostic (FreeStyle Lite Strips) qid blood-glucose meter (FreeStyle Lite Meter kit) As directed blood-glucose meter (FreeStyle Lite Meter kit) As directed blood-glucose sensor (FreeStyle Oren 3 Plus Sensor device) As directed use in place of freestyle 3 due to shortage of FS3 blood-glucose,automobile accessories salesperson,cont (FreeStyle Oren 3 [place]) As directed chlorthalidone 25 mg PO DAILY cholestyramine (Cholestyramine Light) 4 grams PO DAILY famotidine (Pepcid) 20 mg PO BID ferrous sulfate 325 mg PO DAILY folic acid 1 mg PO DAILY incontinence pad, liner, disp As directed-use up to 4 per day insulin glargine (Lantus Solostar U-100 Insulin) 16 units subcut BEDTIME lancets (FreeStyle Lancets) 4x daily levothyroxine 125 mcg PO DAILY hrvplj-uvqqtkct-ihbjags (pork) 36,000-114,000- 180,000 unit (Creon) 2 caps PO BID lisinopril 5 mg PO DAILY metformin 1,000 mg PO BID 30 days metoprolol succinate ER 25 mg (1/2 x 50 mg) PO DAILY mycophenolate mofetil 1,000 mg (2 x 500 mg) PO TID@0800,1300,1900 nut.tx.gluc.intol,lac-free,soy (Glucerna oral liquid) 1 ea PO TID oxybutynin chloride ER 10 mg PO DAILY 2 weeks pen needle, diabetic once daily potassium citrate ER 10 mEq PO BID pyridostigmine bromide 180 mg (3 x 60 mg) PO TID rosuvastatin 40 mg PO DAILY [shower bench without back As directed] HPI Comments Details: 69 YO F with a past medical history of Myasthenia Gravis, 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 Last seen here on 09/15/2024 by Rebecca Best NP. This is the 1st time that I see this patient. Diabetes mellitus Initially diagnosed with T2DM in 2006 during a routine screening exam Currently using Metformin 1000 mg PO BID, Lantus 10 units daily Previous medications: Jardiance 25 mg PO daily (did not take this due to her being concerned about vaginal yeast infection). Tried and failed Januvia 100 mg PO daily. . She was on Trulicity but this was discontinued due to pancreatitis. She gets bloating and some diarrhea with metformin. Hypoglycemia: Not recently Macrovascular/microvascular complications: Has neuropathy, not painful. She is seen by podiatry. 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 Has nephropathy, on Ramipril 10 mg PO daily. Following with Dr. Mcneill from Nephrology. No history of CAD, but did have CVA in the past. Eye exam: has appointment in , prev visit Nov 2024. Weight: Overall stable. She experiences ups and downs. Toxic MNG: Hypothyroidsm: She moved here from [facility] and established care with new PCP. PCP ordered thyroid ultrasound 03/15/18. This revealed multiple thyroid nodules, 4 nodules within the R lobe and 4 nodules within the L lobe. Review of records from her former Physical Therapist in [facility] reveals prior FNA biopsy 08/23/13 of 3 nodules, all benign. The 3 nodules biopsied were the R lower pole 1.6 cm nodule- benign; R upper pole 1.1 cm nodule - benign; L upper 2.2 cm nodule - benign. She was found to be hyperthyroid with suppressed TSH, with uptake and scan consistent with a toxic MNG. She did meet with Dr. Becerra to discuss todal thyroidectomy, but this was thought to be a risky procedure as she requires preoperative plasmapheresis due to her myasthenia gravis. Discussion was held with Dr. Becerra with the decision to proceed with I131 ablation with FNA of any concerning appearing nodules. She underwent I131 ablation with 11.56 millicurries 05/02/19. She underwent FNA biopsy 07/04/2021 of her RMP 1.3 cm thyroid nodule, with benign cytology. At that time there were no nodules visualized in the L lobe of the thyroid. The L lobe was diffusely heterogenous with multiple pseudonodules, but no true nodules. She is currently on levothyroxine 125 mcg PO daily. . Hypercalcemia: She also reports a history of primary hyperparathyroidism. She had 2 parathyroid glands removed in 2013 in [facility]. She has had recurrent kidney stones-Last episode??. She does not take Vitamin D. She has had no fractures. She does report a history of Osteoporosis, but this does appear to have resolved as her recent BMD was normal as of 08/27/18. She did have labs that are concerning for recurrence of hyperparathyroidism with elevated PTH. Calcium remained normal, but on repeat labs 02/25/19 this was again elevated to 10.3. She was on HCTZ 25 mg PO daily. HCTZ was stopped and she had labs repeated 4 weeks later. Labs 06/24/2019 were WNL with PTH 46, Calcium 9.9. She remained off HCTZ but then developed obstructive nephrolithiasis which she was hospitalized for in [facility]. Labs in December 2024 showed Ca 9.7 and Vitamin D 40.2. Most recent Ca 10.0 om 03/16/25. Interval history 03/17/25 She reports that her sensors have not worked She is not checking her BG frequently outside the sensor. Denies hypoglycemia Using Insulin 12 units at night Metformin 1000mg BID, she reports having diarrhea from it Reports not following any specific diet Levothyroxine 125 mcg daily, reports taking it early in the AM She reports dysphagia and odynophagia Physical Exam: - General: Well appearing, NAD. - Thyroid: Thyroid not enlarged. Not palpable nodules - CV: Regular heart rate and rhythm. Peripheral pulses normal, no edema. - Resp: Lungs clear to auscultation bilaterally. - Abdomen: Soft, nontender, nondistended. - Extremities/Neuro: No weakness or edema. Monofilament exam not performed. - Diabetic Foot Exam: Not performed. Laboratory Tests 03/27/25 13:00 TSH 5.35 H Free T4 0.98 Laboratory Tests 03/17/25 03/17/25 13:03 13:13 Glucose (Clinic) 167 H Hgb A1c (Clinic) 7.6 H Laboratory Tests 12/27/24 03/16/25 11:55 11:27 Sodium 138 Potassium 4.3 D Creatinine 0.68 Estimated GFR > 60 Calcium 10.0 Albumin 4.6 TSH 0.53 Free T4 1.10 Imaging Thyroid ultrasound 04/06/2024 FINDINGS: SIZE: Measurements of the thyroid lobes and nodules are given in sagittal, anteroposterior and transverse dimensions respectively. Right Thyroid Lobe: 3.8 x 1.3 x 1.1 cm, volume 2.9 mL. Previously 2.9 x 1.2 x 1.2 cm, volume 2.2 mL. Parenchyma: The gland echotexture is heterogeneous. Thyroid vascularity is normal. Left Thyroid Lobe: 3.7 x 1.2 x 1.0 cm, volume 2.3 mL. Previously 3.2 x 1.3 x 1.0 cm, volume 2.2 mL. Parenchyma: The gland echotexture is heterogeneous. Thyroid vascularity is normal. Isthmus: 0.2 cm in maximum AP dimension. Previously 0.2 cm. Estimated total number of nodules greater than or equal to 1 cm: 1. Asp Net Developer nodules are described as follows: 1. Location: Right mid. Size: 0.4 x 0.3 x 0.3 cm, volume 0.03 mL. Previously: 0.4 x 0.4 x 0.4 cm, volume 0.03 mL. Nodule characteristics: Composition: Solid (2). Echogenicity: Isoechoic (1). Shape: Not taller than wide (0). Margins: Smooth (0). Echogenic Foci: None (0). ACR TI-RADS total points: 3 Previous: 3 ACR TI-RADS category: 3 Previous: 3 Significant change in size (>/= 20% in 2 dimensions and minimal increase of 2 mm or 50% or greater increase in volume): No Change in features: No Change in ACR TI-RADS risk category: No 2. Location: Right mid/inferior. Size: 1.3 x 0.9 x 0.8 cm, volume 0.48 mL. Previously: 1.2 x 0.9 x 0.9 cm, volume 0.39 mL. Nodule characteristics: Composition: Solid (2). Echogenicity: Isoechoic (1). Shape: Taller than wide (3). Margins: Smooth (0). Echogenic Foci: Peripheral calcifications (2). ACR TI-RADS total points: 8 Previous: 5 ACR TI-RADS category: 5 Previous: 4 Significant change in size (>/= 20% in 2 dimensions and minimal increase of 2 mm or 50% or greater increase in volume): No Change in features: Yes Change in ACR TI-RADS risk category: Yes 3. Location: Left superior. Size: 0.8 x 0.5 x 0.5 cm, volume 0.10 mL. Previously: 0.5 x 0.5 x 0.4 cm, volume 0.03 mL. Nodule characteristics: Composition: Solid (2). Echogenicity: Hypoechoic (2). Shape: Not taller than wide (0). Margins: Smooth (0). Echogenic Foci: Macrocalcifications (1). ACR TI-RADS total points: 5 Previous: 4 ACR TI-RADS category: 4 Previous: 4 Significant change in size (>/= 20% in 2 dimensions and minimal increase of 2 mm or 50% or greater increase in volume): Yes Change in features: Yes Change in ACR TI-RADS risk category: No 4. Location: Left inferior. Size: 0.5 x 0.3 x 0.3 cm, volume 0.02 mL. Previously: New since the previous study. Nodule characteristics: Composition: Solid (2). Echogenicity: Isoechoic (1). Shape: Not taller than wide (0). Margins: Smooth (0). Echogenic Foci: None (0). ACR TI-RADS total points: 3 ACR TI-RADS category: 3 NODES: No lymphadenopathy is seen in the tissue surrounding the thyroid gland. IMPRESSION: 1. Heterogeneous, hypervascular, multinodular thyroid gland with bilateral macrocalcifications. 2. A 1.3 cm right [id number] pole TR 5 thyroid nodule meets criteria for biopsy. Fine-needle aspiration recommended if not already performed. 3. Additional subcentimeter thyroid nodules, largest 0.8 cm left upper TR 4. [facility], [facility] Medical History Personal history of nicotine dependence Spasm of bladder Ureteral stone with hydronephrosis Hyperparathyroidism Tinnitus Hearing loss Anxiety and depression Diabetes mellitus, with long-term current use of insulin Urinary, incontinence, stress female Wheezing Vitamin B12 deficiency Occlusion of stent of peripheral artery Chronic low back pain History of CVA (cerebrovascular accident) (~10/2020) History of kidney stones Tubular adenoma of colon COVID-19 vaccine series declined Colitis without complication Myasthenia gravis Pernicious anemia Myasthenia gravis Urge urinary incontinence Microalbuminuria Vitamin D deficiency Hypothyroidism Multinodular thyroid HTN (hypertension) Surgical History History of cholecystectomy History of surgery History of amputation of toe Hx of blood clots Status post biopsy of thyroid gland (~2021) History of colonoscopy History of esophagogastroduodenoscopy (EGD) History of bilateral cataract extraction (~2019) History of parathyroidectomy History of lithotripsy (~2013) History of hernia repair History of hysterectomy (~1984) Family History Father Lung cancer Mother Asthma Diabetes HTN (hypertension) Heart attack Sister FH: mental illness Leukemia Mental health disorder Social History Household Members: None Both parents involved: No Caregiver staying overnight: No Housing: Apartment Are you a primary urgent care technician to a significant other at home: No Do you presently have visiting nurse or other home services: Yes (VIDEOGAME TESTER 19 hrs/week) Alcohol intake: never Patient Tobacco Use Status: Current someday Tobacco user Tobacco use type: Cigarette Cigarette Packs Per Day: 0 Years Smoked: 45 +/-, smokes 1 puff of a cigarette weekly e-Cigarette/Vaping Use: Never Used Advance Directives Date on File: 03/03/22 service: No Current occupational status: disabled Cognitive needs: No Hearing needs: Yes Vision needs: Yes Physical Exam Vital Signs: Last Vital Signs Pulse 76 05/10/25 12:32 BP 168/84 H 05/10/25 12:32 Pulse Ox 96 05/10/25 12:32 Oxygen Delivery Method Room Air 05/10/25 12:32 BMI result Body Mass Index 27.5 Assessment & Plan Assessment & Plan (1) Diabetes mellitus, with long-term current use of insulin: Code(s): E11.9 - Type 2 diabetes mellitus without complications; Z79.4 - termite renewal inspector (current) use of insulin Category: Medical Qualifiers: Diabetes mellitus type: type 2 Diabetes mellitus complication status: with kidney complications Diabetes mellitus complication detail: with chronic kidney disease Chronic kidney disease stage: stage 2 (mild) Qualified Code(s): E11.22 - Type 2 diabetes mellitus with diabetic chronic kidney disease; N18.2 - Chronic kidney disease, stage 2 (mild); Z79.4 - termite renewal inspector (current) use of insulin Plan: 69-year-old type 2 diabetic with nephropathy and neuropathy with most recent A1c 7.6% on 03/17/2025. Patient's suboptimal control likely related to medication noncompliance and dietary transgressions. I discussed with the patient that the most common side effects of Ozempic (semaglutide) are gastrointestinal, including nausea, vomiting, diarrhea, constipation, and abdominal pain. These symptoms are usually mild to moderate, tend to occur during dose escalation, and often improve over time. Other possible side effects include headache, dizziness, and fatigue. Hypoglycemia is uncommon unless Ozempic is used with insulin or sulfonylureas. Rare but serious risks include pancreatitis, gallbladder disease, and, in patients with significant vomiting or diarrhea, dehydration and possible kidney injury. Injection site reactions are rare and typically mild. I emphasized the importance of gradual dose escalation to minimize GI side effects and advised the patient to report any severe or persistent symptoms. Advise the patient to monitor blood glucose at least 4 times per day if sensor not working Counseled the patient on importance of medication compliance to achieve better diabetes control Discussed with the patient the importance of low carb diet to avoid diabetes complications and weight gain Will start the patient in Ozempic 0.25 mg weekly for 4 weeks, if tolerated can be increased to 0.5mg weekly after Reduce metformin 500mg BID Follow up in 3 month (2) Primary hyperparathyroidism: Code(s): E21.0 - Primary hyperparathyroidism Category: Medical Plan: She also reports a history of primary hyperparathyroidism. She had 2 parathyroid glands [facility] in 2013 [facility]. She did have episode of nephrolithiasis in the past, but not recently. She has not been on hydrochlorothiazide since around 2019. Her more recent calcium is 10.0 on 03/16/2025. She is not currently taking vitamin-D supplementation. Discussed with the patient the importance of taking vitamin-D supplementation Advised the patient that calcium has been stable in the last 2 measurements in December and March 2025, we will likely monitor it again in 6 months. Advised the patient that I will order a renal ultrasound to rule out nonobstructive nephrolithiasis Advised the patient that I would likely order a 24 hours urine calcium in our next visit (3) Multinodular thyroid: Code(s): E04.2 - Nontoxic multinodular goiter Category: Medical (4) Hypothyroidism: Code(s): E03.9 - Hypothyroidism, unspecified Category: Medical Qualifiers: Hypothyroidism type: postablative Qualified Code(s): E89.0 - Postprocedural hypothyroidism Plan Patient with history of multiple thyroid nodules in both right and left thyroid levels, for which she underwent biopsy in 08/2013 ( R lower pole 1.6 cm nodule; R upper pole 1.1 cm nodule; L upper 2.2 cm nodule), all resulted in benign. She was also found to have a toxic nodule for which she underwent radioactive iodine ablation with 11.56 millicurries 05/02/19 after she was deemed a high risk for thyroidectomy due to her history of myasthenia gravis. She underwent FNA biopsy 07/04/2021 of her RM pole 1.3 cm thyroid nodule, with benign cytology. Most recent ultrasound in March/2024 showed some increased on some of the thyroid nodules, but the most significant 1 that was noticed to be changed, was already biopsied in 2021 and was benign. Due to time constraints the patient was unable to stay for the phone visit. We deferred the evaluation of thyroid nodule hypothyroidism today I recommended the patient to obtain labs and a new thyroid ultrasound. She was unable to have the thyroid US done, I just reordered it Orders: Orders US thyroid Today E04.2 - Nontoxic multinodular goiter Medications: New semaglutide (Ozempic) for 4 weeks 0.25 mg (0.368 mL) subcut QWEEK 3 mL 1RF E11.22 - Type 2 diabetes mellitus with diabetic chronic kidney disease, N18.2 - Chronic kidney disease, stage 2 (mild), Z79.4 - skilled nursing (current) use of insulin metformin 500 mg PO BID 60 tabs 4RF E11.22 - Type 2 diabetes mellitus with diabetic chronic kidney disease, N18.2 - Chronic kidney disease, stage 2 (mild), Z79.4 - termite renewal inspector (current) use of insulin Discontinued metformin Discontinued Reason: Doctor's Order 1,000 mg PO BID 30 days 60 tabs 7RF Patient Instructions: Reduzca Metformin a 500mg 2 veces al heriberto Continue Lantus 12 unidades Inicie Ozempic 0.25 mg crow vez por semana mila 4 semanas; esta es crow dosis inicial para ayudar a lieberman cuerpo a adaptarse y minimizar los efectos secundarios estomacales. Despu?s de 4 semanas, aumente a 0.5 mg crow vez por semana. Si se necesita un control adicional de la glucosa despu?s de al menos 4 semanas con 0.5 mg, lieberman m?dico puede aumentar la dosis a 1 mg crow vez por semana. 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
[2025-05-10 12:32] VITALS: BP 168/84; PULSE 76; O2SAT 96; BMI 27.5
[2025-05-10 12:42] LABS: Glucose, Whole Blood 190 mg/dL (60-115)
--- OUTSIDE RECORDS SUMMARY | 2025-05-10 15:15 | XMS_ITS | Clinical Summary ---
Author Organization [address] Address [address] [place] [address] Phone Care Team Providers Care Deck Mechanic Name Role Phone Unavailable Primary Care Provider [...] complete this topic Insurance MEDICAID - [place] [facility] Member Subscriber Plan / Payer (Ef fective 2021-Present) Name:Magy Fitzgerald i Relation to Subscriber:Self Name:Amilcar Magy I Payer ID:[id number] Group ID:[id number] Type:Not on file Address: [address] [id number]
--- OUTSIDE RECORDS SUMMARY | 2025-05-10 15:15 | XMS_ITS | Encounter Summary ---
[facility] Organization [facility] Address [address] [place] [address] Care Team Providers Care Drying Room Operator Name Role Phone Unavailable Primary Care Provider Unavailabl e Encounter Details Date Type Department Care Team (Late st Contact Info) Description 10/24/[address] [facility] - Main Lab [address] [facility] [place] [address] Sasha Storm PA [address] [place] [address] Gross hematuria Social History Tobacco Use Types [...] AM EDT) Final Diagnosis A. Urine, Voided, [id number]: Negative for high grade urothelial carcinoma. Results of UroVysion fluorescence in situ hybridization (FISH) testing: CEP3: Normal CEP7: Normal CEP17: Normal LSI 9p21: Normal Interpretation: Normal profile Controls stained appropriately. Note: The results are intended as a screening device and should be interpreted in association with other clinical and pathological findings. 11/04/2024 2:06 PM EDT [facility] ([facility] HOSPITAL LAB Clinical Information Gross hematuria R31.0 Urine Cytology/FISH (now) 11/04/2024 2:06 PM EDT [facility] Gross Description A. Urine, Voided, [id number]: Received one ThinPrep slide for cytology and one ThinPrep slide for UroVysion FISH 11/04/2024 2:06 PM EDT [facility] Disclaimer Unless otherwise specified, all tissue is 10% NB formalin fixed and paraffin embedded. Technical pathology services provided by [facility] at [address] [place] [address] [address], [place] [address] (CLIA #[id number]/Екатерина Elliott MD, Undertaker Assistant) 11/04/2024 2:06 PM EDT [facility] Tissue Urine specimen from urethra / Unknown 10/18/2024 10/24/2024 9:17 AM EDT us Sasha [facility] LAB PATHOLOGY ORDERABLES Final Result [facility] [address] [place] [address], documented in this encounter Visit Diagnoses Diagnosis Gross hematuria documented in this encounter
--- OUTSIDE RECORDS SUMMARY | 2025-05-10 15:15 | XMS_ITS | Clinical Summary ---
Author Organization [facility] Address [address] [facility] [address] [place] [phone] Phone Care Team Providers Care Security Administrator Name Role Phone Unknown, Unknown Primary Care [...] file Medical Devices Not on file Insurance [facility] MEDICARE REPLACEMENT [facility] MED[facility] REPLACEMENT Care Teams Security Administrator Relationship Specialty Start Date End Date Unknown, Unknown, PCP - General 06/12/23 Additional Source Comments The information contained in this document represents components of the legal health record. It is not the complete legal health record.[facility]
== END 2025-05-10 13:06 | disposition home or self-care (01) ==
LOC: HO.ENCR 12:11
PROVIDERS: PCP Internal Medicine; Visit Provider Student in an Organized Health Care Education/Training Program
DX: E11.22 Type 2 diabetes mellitus with diabetic chronic kidney disease (principal); Z79.4 Long term (current) use of insulin; E04.2 Nontoxic multinodular goiter; N18.2 Chronic kidney disease, stage 2 (mild); E21.0 Primary hyperparathyroidism; E89.0 Postprocedural hypothyroidism
CPT/HCPCS: 99214; G2211

== ENCOUNTER → 2025-05-10 12:11 | Outpatient (BNVA) | payer OTHER, SELFPAY | PROVIDERS: PCP Internal Medicine; Visit Provider Student in an Organized Health Care Education/Training Program | DX: E11.22 Type 2 diabetes mellitus with diabetic chronic kidney disease (principal); I12.9 Hypertensive chronic kidney disease with stage 1 through stage 4 chronic kidney disease, or unspecified chronic kidney disease; N18.2 Chronic kidney disease, stage 2 (mild); E21.0 Primary hyperparathyroidism; E04.2 Nontoxic multinodular goiter; E89.0 Postprocedural hypothyroidism; F17.210 Nicotine dependence, cigarettes, uncomplicated; Z79.4 Long term (current) use of insulin; Z79.84 Long term (current) use of oral hypoglycemic drugs | CPT/HCPCS: 82947; 99212 ==